=== PATIENT | male | born 1935 | race Caucasian/White ===

== ENCOUNTER 2022-12-31 13:08 | Outpatient (OUT) | payer OTHER, SELFPAY ==
[2022-12-31 13:42] LABS: Basophils Absolute Auto 0.1 10^3/uL (0.0-0.1); Basophils Percent Auto 1.6 % (0.2-2.0); Eosinophils Absolute Auto 0.4 10^3/uL (0.0-0.7); Hemoglobin 14.6 g/dL (14.0-18.0); Immature Granulocytes Abs Auto 0.02 10^3/uL (0.00-0.03); Immature Granulocytes Pct Auto 0.4 % (0.0-0.5); Lymphocytes Absolute Auto 1.2 10^3/uL (1.2-3.8); Lymphocytes Percent Auto 21.9 % (20.5-60.0); Mean Corpuscular HGB Conc 32.4 g/dL (29.9-35.2); Mean Corpuscular Hemoglobin 31.1 pg (25.9-34.0); Mean Corpuscular Volume 95.7 fL (80.0-94.0); Mean Platelet Volume 9.7 fL (9.5-13.5); Monocytes Absolute Auto 0.6 10^3/uL (0.3-0.8); Monocytes Percent Auto 10.9 % (1.7-12.0); Neutrophils Absolute Auto 3.3 10^3/uL (1.4-6.5); Neutrophils Percent Auto 58.2 % (43.0-75.0); Platelet Count 265 10^3/uL (150-450); Red Cell Distribution Width 14.5 % (11.0-15.0); White Blood Count 5.6 10^3/uL (4.0-11.0)
[2022-12-31 14:39] LABS: Alanine Aminotransferase 30 U/L (16-63); Albumin Level 3.5 g/dL (3.4-5.0); Alkaline Phosphatase 124 U/L (46-116); Anion Gap 11.9; Aspartate Amino Transferase 14 U/L (15-37); BUN Creatinine Ratio 24.3; Bilirubin Total 0.2 mg/dL (0.2-1.0); Calcium 8.6 mg/dL (8.5-10.1); Carbon Dioxide 27.6 mmol/L (21.0-32.0); Chloride 106 mmol/L (98-107); Estimated GFR (African America >60 (>=60); Estimated GFR (Non-African Ame >60 (>=60); Globulin 3.6 g/dL; Glucose 83 mg/dL (74-106); Potassium 4.5 mmol/L (3.5-5.1); Sodium 141 mmol/L (136-145); Total Protein 7.1 g/dL (6.4-8.2)
== END 2022-12-31 13:09 ==
LOC: LAB 13:14
PROVIDERS: PCP Internal Medicine; Visit Provider Internal Medicine
DX: I10 Essential (primary) hypertension (principal)
CPT/HCPCS: 36415; 80053; 85025

== ENCOUNTER 2023-03-02 20:15 | Emergency (ER) | payer OTHER, SELFPAY ==
[2023-03-02] VITALS (24 sets, daily range): BP systolic 118–147; BP diastolic 70–82; PULSE 75–87; RESP 12–26; TEMP 36.6; O2SAT 93–98; BMI 25.9
--- NOTE | 2023-03-02 20:32 | ED_ITS ---
HPI - SOB/Dyspnea General Chief Complaint: Shortness of Breath/Dyspnea Stated Complaint: GENERAL WEAKNESS Time Seen by Provider: 03/02/23 20:32 Source: patient Mode of arrival: walk-in Limitations: no limitations History of Present Illness HPI Narrative: He presents emergency department complaining of a cough. Patient states he Has been taking Mucinex for the last 5 days for chest congestion. He has a cough that is nonproductive. He is not bringing anything up however he feels that his lungs are congested. He denies any fever. He states he had intermittent wheezing but does not have any wheezing today. He states is making him feel short of breath. He has a history of asthma and hayfever. He takes Nasonex, and Claritin- D around the ear. His affect the Mucinex and does not feel like this is working. He's had pneumonia in the past and this feels like when he had pneumonia. The patient is not currently taking any steroids. He has not tried any treatments for this at home. Patient sees Dr. Méndez. Patient states he is vaccinated for pneumonia. He denies any lower extremity edema, or cramping. He denies any nausea, vomiting, diarrhea, constipation, abdominal pain. Related Data Home Medications Medication Instructions Recorded Confirmed aspirin 81 mg tablet,delayed 81 mg PO DAILY 03/02/23 03/02/23 release (Adult Aspirin Regimen) Previous Rx's Medication Instructions Recorded albuterol sulfate 90 mcg/actuation 2 inh inhalation Q4H PRN shortness 03/02/23 aerosol inhaler of breath or wheezing #8.5 grams methylprednisolone 4 mg tablets in 4 mg PO DAILY #21 ea 03/02/23 a dose pack (Medrol (Reji)) Allergies Allergy/AdvReac Type Severity Reaction Status Date / Time Sulfa (Sulfonamide Allergy Mild Verified 03/02/23 20:30 Antibiotics) eggs Allergy Mild Uncoded 03/02/23 20:30 Review of Systems ROS Status of ROS 10 or more systems reviewed and unremarkable except as noted in history and below Exam Narrative Exam Narrative: Nurses notes and vital signs reviewed and patient is not hypoxic. General: elderly,Nontoxic, Well-appearing and in no apparent distress. Skin: Warm, dry, no pallor noted. No Rash Head: Normocephalic, atraumatic. Neck: Supple, non-tender. Eye: Pupils are equal, round and EOMI. No scleral icterus. Ears, Nose, Mouth, and Throat: TM clear, no posterior oropharynx erythema or nasal mucosal hypertrophy, uvula is mid-line Oral mucosa is moist Cardiovascular: Regular Rate and Rhythm without murmur, gallop or rub. Respiratory: No accessory muscle use or respiratory distress. Lungs Bilateral diffuse coarse rhonchi worse anteriorly. Chest Wall: no tenderness Back: No midline thoracic or lumbar vertebral tenderness. No CVA tenderness Musculoskeletal: normal ROM, no calf or popliteal tenderness, no lower extremity edema/swelling GI: Abdomen is soft, non-distended. Normal bowel sounds. No masses appreciated. No tenderness to palpation. No rebound, guarding, or rigidity noted. Neurological: A&O x4. No cranial nerve dysfunction observed. No truncal ataxia. Moves all extremities. Sensation intact. Psychiatric: Cooperative and interactive. Normal mood and affect. Constitutional Vital Signs, click to edit/add: Last Vital Signs Temp 97.9 F 03/02/23 20:25 Pulse 87 03/02/23 23:20 Resp 19 03/02/23 23:20 BP 118/72 03/02/23 23:00 Pulse Ox 95 03/02/23 22:48 O2 Del Method Room Air 03/02/23 20:25 Course Vital Signs Vital signs: Vital Signs Temperature 97.9 F 03/02/23 20:25 Pulse Rate 83 03/02/23 20:25 Respiratory Rate 26 H 03/02/23 20:25 Blood Pressure 147/82 H 03/02/23 20:25 Pulse Oximetry 93 L 03/02/23 20:25 Oxygen Delivery Method Room Air 03/02/23 20:25 Temperature 97.9 F 03/02/23 20:25 Pulse Rate 87 03/02/23 23:20 Respiratory Rate 19 03/02/23 23:20 Blood Pressure 118/72 03/02/23 23:00 Pulse Oximetry 95 03/02/23 22:48 Oxygen Delivery Method Room Air 03/02/23 20:25 MDM - SOB/Dyspnea MDM Narrative Medical decision making narrative: Patient will be given one dose of nebulized albuterol. Lab studies, chest x-ray were ordered. Patient was given Rocephin IV. Patient felt better after nebulized treatments. All results discussed with patient. Patient feeling better. Lungs are clearing up. She was treated for bronchitis And started on a Medrol Dosepak and Albuterol inhaler. Patient will follow-up with Dr. Méndez. At this time the patient is without objective evidence of an acute process requiring hospitalization or inpatient management. The patient has remained hemo dynamically stable. No additional indication for emergent studies at this time. I answered all questions. Discussed discharge instructions including standard anticipatory guidance and what should prompt a return to the emergency department, including if they get worse are not getting better or develops any new or concerning symptoms. I've given them specific time frame in which to follow-up, and who to follow-up with. The patient demonstrates understanding. Patient is nontoxic and stable for discharge with outpatient follow-up. This note was created with the assistance of a speech recognition program. Although the intention is to generate documents that actually reflects the content of the visit, no guarantees can be provided that every mistake has been identified and corrected by editing. Differential Diagnosis Differential diagnosis: Likely acute exacerbation of chronic obstructive airways disease, congestive heart failure, community acquired pneumonia and asthma with exacerbation Lab Data Attestation: I reviewed the patient's lab results. Labs: Lab Results 03/02/23 03/02/23 Range/Units 20:30 20:39 WBC 11.1 H (4.0-11.0) 10^3/uL RBC 4.50 L (4.70-6.10) 10^6/uL Hgb 14.0 (14.0-18.0) g/dL Hct 42.4 (42.0-54.0) % MCV 94.2 H (80.0-94.0) fL MCH 31.1 (25.9-34.0) pg MCHC 33.0 (29.9-35.2) g/dL RDW 13.3 (11.0-15.0) % Plt Count 308 (150-450) 10^3/uL MPV 9.9 (9.5-13.5) fL Neut % (Auto) 79.5 H (43.0-75.0) % Lymph % (Auto) 8.4 L (20.5-60.0) % [place] % (Auto) 9.4 (1.7-12.0) % Eos % (Auto) 1.3 (0.9-7.0) % Baso % (Auto) 0.8 (0.2-2.0) % Neut # (Auto) 8.8 H (1.4-6.5) 10^3/uL Lymph # (Auto) 0.9 L (1.2-3.8) 10^3/uL [place] # (Auto) 1.1 H (0.3-0.8) 10^3/uL Eos # (Auto) 0.2 (0.0-0.7) 10^3/uL Baso # (Auto) 0.1 (0.0-0.1) 10^3/uL Abs Immat Gran (auto) 0.07 H (0.00-0.03) 10^3/uL Imm/Tot Granulo (auto) 0.6 H (0.0-0.5) % Sodium 137 (136-145) mmol/L Potassium 3.8 (3.5-5.1) mmol/L Chloride 102 (98-107) mmol/L Carbon Dioxide 25.6 (21.0-32.0) mmol/L Anion Gap 13.2 BUN 20.0 H (7.0-18.0) mg/dL Creatinine 1.61 H (0.70-1.30) mg/dL Est GFR ( Amer) 50 L (>=60) Est GFR (Non-Af Amer) 41 L (>=60) BUN/Creatinine Ratio 12.4 Glucose 117 H (74-106) mg/dL Calcium 8.5 (8.5-10.1) mg/dL Total Bilirubin 0.6 (0.2-1.0) mg/dL AST 14 L (15-37) U/L ALT 33 (16-63) U/L Alkaline Phosphatase 120 H (46-116) U/L Troponin I High Sens 11.8 (4.0-76.1) pg/mL NT-Pro-B Natriuret Pep 210.0 (<=1800.0) pg/mL Total Protein 7.3 (6.4-8.2) g/dL Albumin 3.1 L (3.4-5.0) g/dL Globulin 4.2 g/dL Albumin/Globulin Ratio 0.7 Adenovirus (PCR) Not detected (NOT DETECTE) C. pneumoniae DNA (PCR) Not detected (NOT DETECTE) Coronavirus Type OC43 Not detected (NOT DETECTE) Coronavirus Type HKU1 Not detected (NOT DETECTE) Coronavirus Type 229E Not detected (NOT DETECTE) Coronavirus Type NL63 Not detected (NOT DETECTE) Human Metapneumovir PCR Not detected (NOT DETECTE) M. pneumoniae (PCR) Not detected (NOT DETECTE) Parainfluenza PCR Not detected (NOT DETECTE) Parainfluenza 2 (PCR) Not detected (NOT DETECTE) Parainfluenza 3 (PCR) Not detected (NOT DETECTE) Parainfluenza 4 (PCR) Not detected (NOT DETECTE) RSV (RT-PCR) Not detected (NOT DETECTE) Entero/Rhino (PCR) Not detected (NOT DETECTE) SARS-CoV-2 (PCR) Not detected (NOT DETECTE) Bordetella pertussis (PCR) Not detected (NOT DETECTE) B parapertussis DNA PCR Not detected (NOT DETECTE) Influenza Type A (PCR) Not detected (NOT DETECTE) Influenza Type B (PCR) Not detected (NOT DETECTE) Discharge Plan Discharge Chief Complaint: Shortness of Breath/Dyspnea Clinical Impression: Asthma with acute exacerbation, Bronchitis Patient Disposition: Home, Self-Care Time of Disposition Decision: 23:15 Condition: Good Mode of Transportation: Private Vehicle Prescriptions / Home Meds: New methylprednisolone [Medrol (Reji)] 4 mg tablets,dose pack 4 mg PO DAILY Qty: 21 0RF albuterol sulfate 90 mcg/actuation HFA aerosol inhaler 2 inh inhalation Q4H PRN (Reason: shortness of breath or wheezing) Qty: 8.5 0RF No Action aspirin [Adult Aspirin Regimen] 81 mg tablet,delayed release (DR/EC) 81 mg PO DAILY Instructions: Asthma (ED), Acute Bronchitis (ED) Stand Alone Forms: Portal Instructions Referrals: Shaikh Franklin MD [Primary Care Provider] - 1 week Discharge Date/Time: 03/02/23 23:23
--- NOTE | 2023-03-02 20:33 | ECG_ITS ---
The [facility] Test Date: 2023-03-02 Pat Name: Rolando Rothman Department: Room: - Gender: Male Reading Professor: : 1935 Requested By: SHAIKH MIHAELA Order Number: [id number] Reading MD: ELIZABETH GAUTAM Measurements Intervals [place] Rate: 81 P: 69 RI: 222 QRS: 69 QRSD: 84 T: 60 QT: 350 QTc: 388 Interpretive Statements 1100 Sinus rhythm 2231 First degree AV block 0102 ARTIFACT PRESENT 9150 abnormal ECG No previous ECG available for comparison Electronically Signed On 03-03-2023 6:56:37 EDT by ELIZABETH GAUTAM
--- NOTE | 2023-03-02 20:33 | XR_ITS ---
The [place] [id number] Patient Name: DERRICK MONAE MRN: [id number] date: 1935 Sex: M Assigned Patient Location: ED.MAIN Current Patient Location: ER Accession/Order Number: [id number] Exam Date: 03/02/2023 20:45 Report Date: 03/02/2023 22:18 At the request of: DUNG URIAS Procedure: XR chest 1V CLINICAL HISTORY: dyspnea. EXAMINATION: Portable AP upright chest: 03/02/2023 at 2021 hours. COMPARISON: PA and lateral chest: 12/14/2015. FINDINGS: The patient is somewhat rotated, lordotic. The visualized osseus structures appear intact. The heart size seems normal. The aorta is slightly tortuous, atherosclerotic. There are no discrete infiltrates, pleural effusions, pulmonary edema or pneumothorax. XR/XR chest 1V IMPRESSION: No acute cardiopulmonary disease. Electronically authenticated by: JOE KING Date: 03/02/2023 22:18
[2023-03-02 20:55] LABS: Adenovirus NOT DETECTED (NOT DETECTE); Bordetella parapertussis NOT DETECTED (NOT DETECTE); Coronavirus 229E NOT DETECTED (NOT DETECTE); Coronavirus HKU1 NOT DETECTED (NOT DETECTE); Coronavirus NL63 NOT DETECTED (NOT DETECTE); Coronavirus OC43 NOT DETECTED (NOT DETECTE); Human Metapneumovirus NOT DETECTED (NOT DETECTE); Human Rhinovirus/Enterovirus NOT DETECTED (NOT DETECTE); Influenza A NOT DETECTED (NOT DETECTE); Influenza B NOT DETECTED (NOT DETECTE); Mycoplasma pneumoniae NOT DETECTED (NOT DETECTE); Parainfluenza Virus 1 NOT DETECTED (NOT DETECTE); Parainfluenza Virus 2 NOT DETECTED (NOT DETECTE); Parainfluenza Virus 3 NOT DETECTED (NOT DETECTE); Parainfluenza Virus 4 NOT DETECTED (NOT DETECTE); Respiratory Syncytial Virus NOT DETECTED (NOT DETECTE); SARS-CoV-2 NOT DETECTED (NOT DETECTE)
[2023-03-02 21:00] LABS: Basophils Absolute Auto 0.1 10^3/uL (0.0-0.1); Basophils Percent Auto 0.8 % (0.2-2.0); Eosinophils Absolute Auto 0.2 10^3/uL (0.0-0.7); Eosinophils Percent Auto 1.3 % (0.9-7.0); Hematocrit 42.4 % (42.0-54.0); Immature Granulocytes Abs Auto 0.07 10^3/uL (0.00-0.03); Immature Granulocytes Pct Auto 0.6 % (0.0-0.5); Lymphocytes Absolute Auto 0.9 10^3/uL (1.2-3.8); Lymphocytes Percent Auto 8.4 % (20.5-60.0); Mean Corpuscular Hemoglobin 31.1 pg (25.9-34.0); Mean Corpuscular Volume 94.2 fL (80.0-94.0); Mean Platelet Volume 9.9 fL (9.5-13.5); Monocytes Absolute Auto 1.1 10^3/uL (0.3-0.8); Monocytes Percent Auto 9.4 % (1.7-12.0); Neutrophils Absolute Auto 8.8 10^3/uL (1.4-6.5); Neutrophils Percent Auto 79.5 % (43.0-75.0); Platelet Count 308 10^3/uL (150-450); Red Cell Distribution Width 13.3 % (11.0-15.0); White Blood Count 11.1 10^3/uL (4.0-11.0)
[2023-03-02 21:15] LABS: Alanine Aminotransferase 33 U/L (16-63); Albumin Globulin Ratio 0.7; Albumin Level 3.1 g/dL (3.4-5.0); Alkaline Phosphatase 120 U/L (46-116); Anion Gap 13.2; Aspartate Amino Transferase 14 U/L (15-37); BUN Creatinine Ratio 12.4; Bilirubin Total 0.6 mg/dL (0.2-1.0); Calcium 8.5 mg/dL (8.5-10.1); Carbon Dioxide 25.6 mmol/L (21.0-32.0); Chloride 102 mmol/L (98-107); Estimated GFR (African America 50 (>=60); Estimated GFR (Non-African Ame 41 (>=60); Globulin 4.2 g/dL; Glucose 117 mg/dL (74-106); Potassium 3.8 mmol/L (3.5-5.1); Sodium 137 mmol/L (136-145); Total Protein 7.3 g/dL (6.4-8.2)
[2023-03-02] MEDS: ALBUTEROL SULFATE 2.5 MG/3 ML VIAL NEB IH (21:21)
[2023-03-02 21:22] LABS: Troponin I High Sensitivity 11.8 pg/mL (4.0-76.1)
[2023-03-02] MEDS: CEFTRIAXONE 1,000 MG in 0.9 % SODIUM CHLORIDE 50 ML 100 MG IV (22:32)
[2023-03-02] MEDS: METHYLPREDNISOLONE SOD SUCC PF 125 MG/2 ML VIAL IVP (22:32)
[2023-03-02] MEDS: IPRATROPIUM/ALBUTEROL SULFATE 3 ML AMPUL.NEB IH (22:48)
== END 2023-03-02 23:23 | disposition home or self-care (01) ==
PROVIDERS: Emergency Provider Emergency Medicine; PCP Internal Medicine
DX: J45.901 Unspecified asthma with (acute) exacerbation (principal); Z79.82 Long term (current) use of aspirin; Z20.822 Contact with and (suspected) exposure to COVID-19; R06.02 Shortness of breath
CPT/HCPCS: 0202U; 36415; 71045; 80053; 83880; 84484; 85025; 87040; 93005; 94640; 96365; 96375; 99285; J2930

== ENCOUNTER 2023-03-25 12:32 | Outpatient (OUT) | payer OTHER, SELFPAY ==
--- NOTE | 2023-03-24 10:15 | RT_ITS ---
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 Findings were not considered accurate and reproducible due to coughing paroxysms. Both pre- and post-bronchodilator values utilized for spirometry. No prior studies available for comparison. Spirometry (based on pre-bronchodilator values): -FEV1/FVC: Reduced @ 57% -FEV1: Severely reduced @ 41% -FVC: Reduced @ 49% -There is a positive bronchodilator response in FEV1 and FVC. Lung volumes by plethysmography: -RV: Increased @ 180% -TLC: Normal @ 105% Diffusion capacity: -DLCO: Moderate reduction @ 59% when corrected for Hb 14g/dL Flow-volume loop: -Abnormal spike in the expiratory limb suggestive of a glottic maneuver (e.g. cough) Flow-pressure loop: ???Emphysematous pattern Impressions: -Though testing technically did not meet ATS standards, spirometry shows severe obstruction with a bronchodilator response with an elevated RV suggesting air trapping, and a moderately reduced DLCO. 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 Clinical correlation required. Electronically Signed On 03-27-2023 13:35:22 EDT by Larry Méndez
[2023-03-24 10:17] VITALS: PULSE 84; O2SAT 94
[2023-03-24] MEDS: ALBUTEROL SULFATE 2.5 MG/3 ML VIAL NEB IH (10:17)
== END 2023-03-25 12:33 | disposition home or self-care (01) ==
LOC: CARD 12:33
PROVIDERS: PCP Internal Medicine; Visit Provider Internal Medicine
DX: J45.40 Moderate persistent asthma, uncomplicated (principal)
CPT/HCPCS: 94060; 94726; 94729

== ENCOUNTER 2023-04-23 07:57 | Outpatient (OUT) | payer OTHER, SELFPAY ==
--- NOTE | 2023-04-23 08:09 | CT_ITS ---
[address] [address] Patient Name: DERRICK MONAE MRN: [id number] date: 1935 Sex: M Assigned Patient Location: LAB Current Patient Location: LAB Accession/Order Number: [id number] Exam Date: 04/23/2023 08:35 Report Date: 04/23/2023 09:38 At the request of: ZULEIKA HELMS Procedure: CT angio chest EXAMINATION: CT angio chest HISTORY: Acute Respiratory Failure ; cough COMPARISON: No relevant comparison available. TECHNIQUE: Multi-planar CT images were created with IV contrast. Axial, Coronal, and Sagittal images. Dose reduction techniques were achieved by using automated exposure control and/or adjustment of mA and/or kV according to patient size and/or use of iterative reconstruction technique. 3-D reconstruction was performed on a separate workstation. FINDINGS: VASCULATURE: No pulmonary embolism or abnormal opacity. LUNGS: Mild wall thickening of the trachea and central bronchi. No peripheral infiltrates. PLEURA: No mass, effusion, or pneumothorax. BERNADETTE: Calcified right hilar lymph nodes compatible with chronic granulomatous disease. MEDIASTINUM: No mass or adenopathy. CARDIAC: No enlargement, pericardial effusion, or pericardial thickening. AORTA: No aneurysm or dissection. CHEST WALL: No mass or axillary adenopathy. BONES: No bone lesion or fracture. LIMITED ABDOMEN: No suspicious findings. Limited images of the upper abdomen. OTHER: Negative. CT/CT angio chest IMPRESSION: 1. No pulmonary emboli. 2. Mild wall thickening of the trachea and central bronchi; tracheitis and bronchiolitis? 3. No peripheral infiltrates. Electronically authenticated by: RIVER MARSHALL Date: 04/23/2023 09:38
[2023-04-23 08:15] LABS: Estimated GFR (African America >60 (>=60); Estimated GFR (Non-African Ame >60 (>=60)
== END 2023-04-23 07:58 | disposition home or self-care (01) ==
LOC: LAB 07:57
PROVIDERS: PCP Internal Medicine; Visit Provider Internal Medicine
DX: J96.01 Acute respiratory failure with hypoxia (principal)
CPT/HCPCS: 36415; 71275; 82565; Q9967

== ENCOUNTER 2023-06-09 10:51 | Outpatient (OUT) | payer OTHER, SELFPAY ==
[2023-06-09 11:26] LABS: Basophils Absolute Auto 0.1 10^3/uL (0.0-0.1); Eosinophils Absolute Auto 0.3 10^3/uL (0.0-0.7); Eosinophils Percent Auto 4.9 % (0.9-7.0); Hematocrit 44.7 % (42.0-54.0); Hemoglobin 14.4 g/dL (14.0-18.0); Immature Granulocytes Abs Auto 0.02 10^3/uL (0.00-0.03); Immature Granulocytes Pct Auto 0.3 % (0.0-0.5); Lymphocytes Absolute Auto 0.7 10^3/uL (1.2-3.8); Lymphocytes Percent Auto 11.8 % (20.5-60.0); Mean Corpuscular HGB Conc 32.2 g/dL (29.9-35.2); Mean Corpuscular Hemoglobin 30.7 pg (25.9-34.0); Mean Corpuscular Volume 95.3 fL (80.0-94.0); Mean Platelet Volume 9.7 fL (9.5-13.5); Monocytes Absolute Auto 0.6 10^3/uL (0.3-0.8); Monocytes Percent Auto 10.9 % (1.7-12.0); Neutrophils Absolute Auto 4.1 10^3/uL (1.4-6.5); Neutrophils Percent Auto 70.1 % (43.0-75.0); Platelet Count 292 10^3/uL (150-450); Red Blood Count 4.69 10^6/uL (4.70-6.10); White Blood Count 5.9 10^3/uL (4.0-11.0)
[2023-06-10 19:07] LABS: Anti-MPO Antibodies <0.2 units (0.0-0.9); Anti-PR3 Antibodies <0.2 units (0.0-0.9); Cytoplasmic (C-ANCA) <1:20 titer (Neg:<1:20); Perinuclear (P-ANCA) <1:20 titer (Neg:<1:20)
[2023-06-12 03:08] LABS: Immunoglobulin E, Total 46 IU/mL (6-495)
== END 2023-06-09 10:52 | disposition home or self-care (01) ==
LOC: LAB 10:52
PROVIDERS: PCP Internal Medicine; Visit Provider Internal Medicine
DX: J45.40 Moderate persistent asthma, uncomplicated (principal)
CPT/HCPCS: 36415; 82785; 83516; 85025; 86037; 86615

== ENCOUNTER 2023-06-14 07:52 | Outpatient (REF) | payer OTHER, SELFPAY | END 2023-06-15 05:52 | disposition home or self-care (01) | LOC: LAB 07:52 | PROVIDERS: PCP Internal Medicine; Visit Provider Internal Medicine | DX: A37.00 Whooping cough due to Bordetella pertussis without pneumonia (principal) | CPT/HCPCS: 87070; 87205 ==

== ENCOUNTER 2024-01-02 11:58 | Outpatient (OUT) | payer OTHER, SELFPAY ==
--- OUTSIDE RECORDS SUMMARY | 2024-01-02 12:22 | XMS_ITS | CCD ---
Author Organization [facility] Care Team Providers Care Servicenow Administrator Developer Name Role Phone SHAIKH CHAIREZ Consulting Unavailable SHAIKH CHAIREZ Attending Unavailable SHAIKH CHAIREZ Admitting Unavailable SHAIKH CHAIREZ Primary Care Unavailable SHAIKH CHAIREZ Attending Unavailable SHAIKH CHAIREZ Attending Unavailable Results Test Name Value Interpretation Reference Range Facil ity CBC AUTO DIFFon 10-01-2021 BASO # 0.1 103/ul Normal 0.0-0.1 [facility] Comment on above: Performed By: #### C BC #### [facility] [address] [place] [address] Dr. Mazin Davila Basophils/100 WBC (Bld) 1.3 % Normal 0.2-2.0 [facility] Comment on above: Performed By: #### C BC #### [facility] [address] [place] [address] Dr. Mazin Davila EO # 0.3 103/ul Normal 0.0-0.7 [facility] Comment on above: Performed By: #### C BC #### [facility] [address] [place] [address] Dr. Mazin Davila Eosinophils/100 WBC (Bld) 4.3 % Normal 0.9-7.0 [facility] Comment on above: Performed By: #### C BC #### [facility] [address] [place] [address] Dr. Mazin Davila Erythrocyte distribution width (RBC) [Ratio] 13.6 % Normal 11.0-15.0 [facility] Comment on above: Performed By: #### C BC #### [facility] [address] [place] [address] Dr. Mazin Davila Hematocrit (Bld) [Volume fraction] 45.4 % Normal 42.0-54.0 [facility] Comment on above: Performed By: #### C BC #### [facility] [address] [place] [address] Dr. Mazin Davila Hemoglobin (Bld) [Mass/Vol] 14.4 g/dL Normal 14.0-18.0 [facility] Comment on above: Performed By: #### C BC #### [facility] [address] [place] [address] Dr. Mazin Davila IG # 0.03 10e3/ul Normal 0.00-0.03 [facility] Comment on above: Performed By: #### C BC #### [facility] [address] [place] [address] Dr. Mazin Davila IG % 0.4 % Normal 0.0-0.5 [facility] Comment on above: Performed By: #### C BC #### [facility] [address] [place] [address] Dr. Mazin Davila LYMPH # 1.2 103/ul Normal 1.2-3.8 [facility] Comment on above: Performed By: #### C BC #### [facility] [address] [place] [address] Dr. Mazin Davila Lymphocytes/100 WBC (Bld) 15.1 % Critically low 20.5-60.0 [facility] Comment on above: Performed By: #### C BC #### [facility] [address] [place] [address] Dr. Mazin Davila MANUAL DIFF REQ NO Normal [facility] Comment on above: Performed By: #### C BC #### [facility] [address] [place] [address] Dr. Mazin Davila MCH (RBC) [Entitic mass] 30.4 pg Normal 25.9-34.0 [facility] Comment on above: Performed By: #### C BC #### [facility] [address] [place] [address] Dr. Mazin Davila MCHC (RBC) [Mass/Vol] 31.7 g/dL Normal 29.9-35.2 [facility] Comment on above: Performed By: #### C BC #### [facility] [address] [place] [address] Dr. Mazin Davila MCV (RBC) [Entitic vol] 96.0 fL Critically high 80.0-94.0 [facility] Comment on above: Performed By: #### C BC #### [facility] [address] [place] [address] Dr. Mazin Davila MONO # 0.6 103/ul Normal 0.3-0.8 [facility] Comment on above: Performed By: #### C BC #### [facility] [address] [place] [address] Dr. Mazin Davila Monocytes/100 WBC (Bld) 7.6 % Normal 1.7-12.0 [facility] Comment on above: Performed By: #### C BC #### [facility] [address] [place] [address] Dr. Mazin Davila NEUT # 5.5 103/ul Normal 1.4-6.5 [facility] Comment on above: Performed By: #### C BC #### [facility] [address] [place] [address] Dr. Mazin Davila Neutrophils/100 WBC (Bld) 71.3 % Normal 43.0-75.0 [facility] Comment on above: Performed By: #### C BC #### [facility] [address] [place] [address] Dr. Mazin Davila Platelet mean volume (Bld) [Entitic vol] 10.2 fL Normal 9.5-13.5 [facility] Comment on above: Performed By: #### C BC #### [facility] [address] [place] [address] Dr. Mazin Davila PLT 314 103/ul Normal 150-450 [facility] Comment on above: Performed By: #### C BC #### [facility] [address] [place] [address] Dr. Mazin Davila RBC 4.73 106/ul Normal 4.70-6.10 [facility] Comment on above: Performed By: #### C BC #### [facility] [address] [place] [address] [address] Mazin Davila WBC 7.7 103/ul Normal 4.0-11.0 [facility] Comment on above: Performed By: #### C BC #### [facility] [address] [place] [address] [address] Mazin Davila PROF CHEM 8 (BAS METB)on Anion gap [Moles/Vol] 11.7 mmol/L Normal [facility] Comment on above: Performed By: #### B MP #### [facility] [address] [place] [address] Dr. Mazin Davila Calcium [Mass/Vol] 8.6 mg/dL Normal 8.5-10.1 [facility] Comment on above: Performed By: #### B MP #### [facility] [address] [place] [address] Dr. Mazin Davila Chloride [Moles/Vol] 107 mmol/L Normal 98-107 [facility] Comment on above: Performed By: #### B MP #### [facility] [address] [place] [address] [address] Mazin Davila CO2 [Moles/Vol] 26.8 mmol/L Normal 22.0-30.0 [facility] Comment on above: Performed By: #### B MP #### [facility] [address] [place] [address] [address] Mazin Davila Creatinine [Mass/Vol] 1.13 mg/dL Normal 0.66-1.25 [facility] Comment on above: Performed By: #### B MP #### [facility] [address] [place] [address] Dr. Mazin Davila EGFR-AF ANGOLAN >60 Normal >=60 [facility] Comment on above: Performed By: #### B MP #### [facility] [address] [place] [address] Dr. Mazin Davila EGFR-NON AF ANGOLAN >60 Normal >=60 [facility] Comment on above: Performed By: #### B MP #### [facility] [address] [place], [place] [address] Dr. Mazin Davila Glucose [Mass/Vol] 92 mg/dL Normal 74-106 [facility] Comment on above: Performed By: #### B MP #### [facility] [address] [place], [place] [address] Dr. Mazin Davila Potassium [Moles/Vol] 4.5 mmol/L Normal 3.4-5.0 [facility] Comment on above: Performed By: #### B MP #### [facility] [address] [place], [place] [address] Dr. Mazin Davila Sodium [Moles/Vol] 141 mmol/L Normal 137-145 [facility] Comment on above: Performed By: #### B MP #### [facility] [address] [place] [address] [address] Mazin Davila Urea nitrogen [Mass/Vol] 26.0 mg/dL Critically high 7.0-18.0 [facility] Comment on above: Performed By: #### B MP #### [facility] [address] [place] [address] [address] Mazin Davila Urea nitrogen/Creatinine [Mass ratio] 23.0 mg/mg Normal [facility] Comment on above: Performed By: #### B MP #### [facility] [address] [place] [address] [address] Mazin Davila Encounters Encounter Date Encounter Type Care Provider Facility Start: 12-30-2023 End: 12-30-2023 ambulatory JONAS FAWWAD Not Available Start: 06-30-2023 End: 06-30-2023 ambulatory JONAS FAWWAD Not Available Start: 10-01-2021 End: 10-02-2021 ambulatory JONAS FAWWAD Facility: Payers Date Payer Category Payer Medicare [id number] 1957 Medicare [id number] 1935 Unknown [id number] 1935 Unknown [id number] 1935 Unknown [id number] Unknown [id number] Summary Purpose Family History No Family History Records FoundNo Family History Records Found Advance Directives No Advanced Directives Records FoundNo Advanced Directives Records Found Additional Source Comments (unrecognized sect ion and content) No Status Records FoundNo Status Records Found INFORMATION SOURCE (unrecogn ized section and content) DATE CREATED AUTHOR 10/02/2021 [facility] DATE CREATED AUTHOR AUTHOR'S ORGANIZ ATION 12/31/2023 [facility] FOR RECORDS PERTAINING TO PATIENTS WHO ARE OR HAVE BEEN ENROLLED IN A CHEMICAL DEPENDENCY/SUBSTANCEABUSE PROGRAM, SOME INFORMATION MAY BE OMITTED. This clinical summary was aggregated from multiple sources. Caution should be exercised in using it in the provision of clinical care. This summary normalizes information from multiple sources, and as a consequence, information in this document may materially change the coding, format and clinical context of patient data. In addition, data may be omitted in some cases. CLINICAL DECISIONS SHOULD BE BASED ON THE PRIMARY CLINICAL RECORDS. [facility] [employer] provides no warranty or guarantee of the accuracy or completeness of information in this document.
[2024-01-02 12:41] LABS: Basophils Absolute Auto 0.1 10^3/uL (0.0-0.1); Basophils Percent Auto 1.9 % (0.2-2.0); Eosinophils Absolute Auto 0.6 10^3/uL (0.0-0.7); Eosinophils Percent Auto 9.7 % (0.9-7.0); Hematocrit 45.3 % (42.0-54.0); Hemoglobin 14.9 g/dL (14.0-18.0); Immature Granulocytes Abs Auto 0.02 10^3/uL (0.00-0.03); Immature Granulocytes Pct Auto 0.3 % (0.0-0.5); Lymphocytes Absolute Auto 1.2 10^3/uL (1.2-3.8); Lymphocytes Percent Auto 19.9 % (20.5-60.0); Mean Corpuscular HGB Conc 32.9 g/dL (29.9-35.2); Mean Corpuscular Hemoglobin 30.8 pg (25.9-34.0); Mean Corpuscular Volume 93.6 fL (80.0-94.0); Monocytes Absolute Auto 0.5 10^3/uL (0.3-0.8); Monocytes Percent Auto 8.3 % (1.7-12.0); Neutrophils Absolute Auto 3.5 10^3/uL (1.4-6.5); Neutrophils Percent Auto 59.9 % (43.0-75.0); Platelet Count 247 10^3/uL (150-450); Red Blood Count 4.84 10^6/uL (4.70-6.10); Red Cell Distribution Width 13.7 % (11.0-15.0); White Blood Count 5.9 10^3/uL (4.0-11.0)
[2024-01-02 14:29] LABS: Alanine Aminotransferase 22 U/L (16-63); Albumin Globulin Ratio 1.1; Albumin Level 3.5 g/dL (3.4-5.0); Alkaline Phosphatase 128 U/L (46-116); Anion Gap 9.8; Aspartate Amino Transferase 17 U/L (15-37); BUN Creatinine Ratio 20.7; Bilirubin Total 0.5 mg/dL (0.2-1.0); Calcium 8.7 mg/dL (8.5-10.1); Carbon Dioxide 29.3 mmol/L (21.0-32.0); Chloride 106 mmol/L (98-107); Estimated GFR (African America >60 (>=60); Estimated GFR (Non-African Ame >60 (>=60); Globulin 3.3 g/dL; Glucose 89 mg/dL (74-106); Potassium 4.1 mmol/L (3.5-5.1); Sodium 141 mmol/L (136-145); Total Protein 6.8 g/dL (6.4-8.2)
== END 2024-01-02 11:59 | disposition home or self-care (01) ==
LOC: LAB 12:00
PROVIDERS: PCP Internal Medicine; Visit Provider Internal Medicine
DX: I25.10 Atherosclerotic heart disease of native coronary artery without angina pectoris (principal)
CPT/HCPCS: 36415; 80053; 85025

== ENCOUNTER 2024-05-04 17:23 | Emergency (ER) | payer MEDICARE, SELFPAY ==
[2024-05-04 17:29] VITALS: BP 170/84; PULSE 95; TEMP 37.1; O2SAT 96; BMI 25.0
--- OUTSIDE RECORDS SUMMARY | 2024-05-04 17:29 | XMS_ITS | CCD ---
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 Role Phone SHAIKH CHAIREZ Consulting Unavailable SHAIKH CHAIREZ Attending Unavailable FASHAIK HUANGH Admitting Unavailable FASHAIK HUANGH Primary Care Unavailable SHAIKH CHAIREZ Attending Unavailable MIHAELA, Attending Unavailable Unavailable Primary Care Provider Unavailabl e PREET LALA Referring Unavailable PREET LALA Attending Unavailable PREET LALA Referring Unavailable PREET LALA Referring Unavailable PREET LALA Attending Unavailable Allergies Allergy Classification Reported Allergen(s) Allergy Type Date of Onset Reaction(s) Facility (4 sources) Sulfonamides (Antibiotic); Translations: [SULFA (SULFONAMIDE ANTIBIOTICS)] Propensity to adverse reactions 3 [facility] Work Phone: (4 sources) Pineapple; Translations: [PINEAPPLE] Propensity to adverse reactions to drug 1 Other: See Comments [facility] Work Phone: (1 source) OTHER; Translations: [OTHER] Propensity to adverse reactions (disorder) 3 [facility] Repository Medications Current Medications Medication Drug Class(es) Dates Sig (Normalized) Sig (Original) [id number] 200 actuat albuterol 0.09 mg/actuat metered dose inhaler (3 sources) beta2-Adrenergic Agonist Start: 05-07-2018 take 2 puff(s) by inhalation every four hours as needed albuterol HFA (PROVENTIL HFA, VENTOLIN HFA) 90 mcg/actuation inhaler Inhale 2 Puffs as instructed every 4 hours as needed. 05/07/2018 Active aspirin 500 mg oral tablet (3 sources) Platelet Aggregation Inhibitor, Nonsteroidal Anti-inflammatory Drug Start: 04-16-2011 take 2 tablets by mouth twice daily Aspirin (EXTRA STRENGTH GAIL) 500 mg ORAL Tab Take 1,000 mg by mouth twice daily. 0 04/16/2011 Active donepezil hydrochloride 10 mg oral tablet (3 sources) Start: 01-23-2024 End: 01-22-2025 take 1 tablet by mouth once daily at bedtime donepezil (ARICEPT) 10 mg tablet Take 1 tablet by mouth daily at bedtime. 90 tablet 3 01/23/2024 01/22/2025 Active esomeprazole 40 mg delayed release oral capsule (3 sources) Proton Pump Inhibitor Start: 04-16-2011 take 1 capsule by mouth once daily esomeprazole (NEXIUM) 40 mg ORAL capsule Take 1 capsule by mouth once daily. 0 04/16/2011 Active fluticasone propionate 0.05 mg/actuat metered dose nasal spray (3 sources) Corticosteroid fluticasone (FLONASE) 50 mcg/actuation nasal spray Use 1 [place] in the nose once daily. Active fluticasone / salmeterol (3 sources) Corticosteroid, beta2-Adrenergic Agonist Start: 04-16-2011 take 1 puff(s) by mouth twice daily fluticasone-salme terol (ADVAIR DISKUS) 250-50 mcg/dose INHALATION DsDv Inhale 1 Puff as instructed twice daily. rinse and gargle mouth with water after each use 0 04/16/2011 Active fluticasone furoate-vilanterol (BREO ELLIPTA) 50-25 mcg/dose inhaler (3 sources) fluticasone furoate-vilantero l (BREO ELLIPTA) 50-25 mcg/dose inhaler Inhale 1 Inhalation as instructed once daily. Active fluticasone furo ate-vilanterol (BREO ELLIPTA) 50-25 mcg/dose inhaler Inhale 1 Inhalation as instructed once daily. 0 Active 24 hr isosorbide mononitrate 30 mg extended release oral tablet (3 sources) Nitrate Vasodilator Start: 10-24-2015 take 0.5 tablet by mouth twice daily isosorbide mononitrate ER (IMDUR) 30 mg 24 hr tablet Take 0.5 tablets by mouth twice daily. 10/24/2015 Active 24 hr loratadine 10 mg / pseudoephedrine sulfate 240 mg extended release oral tablet (3 sources) alpha-Adrenergic Agonist take 1 tablet by mouth once daily loratadine-pseud oephedrine ER (CLARITIN-D 24) 10-240 mg Tb24 Take 1 tablet by mouth once daily. Active memantine hydrochloride 10 mg oral tablet (2 sources) C-luiawj-P-aspartate Receptor Antagonist Start: 04-30-2024 End: 04-30-2025 take 1 tablet by mouth twice daily memantine (NAMENDA) 10 mg tablet Indications: Mild late onset Alzheimer's dementia without behavioral disturbance, psychotic disturbance, mood disturbance, or anxiety (HCC) Take 1 tablet by mouth two times a day. 180 tablet 3 04/30/2024 04/30/2025 Active mometasone furoate 0.05 mg/actuat metered dose nasal spray (3 sources) Corticosteroid Start: 04-16-2011 take 2 spray(s) nasal route once daily mometasone (NASONEX) 50 mcg/Actuation NASAL nasal spray Use 2 Sprays in each nostril once daily. 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] Onset: 02-15-2024 01-23-2024 Chronic Esophageal disorders (3 sources) Gastroesophageal reflux disease; Translations: [Gastro-esophageal reflux disease without esophagitis] Onset: 04-16-2011 04-16-2011 Chronic Osteoarthritis (3 sources) Osteoarthritis of knee; Translations: [Osteoarthritis of knee, unspecified] Onset: 04-16-2011 04-16-2011 Chronic Unclassified (1 source) Established Patient Follow-Up Onset: 04-30-2024 Unclassified (1 source) Mild late onset Alzheimer's dementia without behavioral disturbance, psychotic disturbance, mood disturbance, or anxiety (HCC); Translations: [Mild late onset Alzheimer's dementia without behavioral disturbance, psychotic disturbance, mood disturbance, or anxiety (HCC)] Onset: 02-15-2024 Past or Other Problems Problem Classification Problem Date Documented Date Episodic/Chronic Other screening for suspected conditions (not mental disorders or infectious disease) (3 sources) Cardiovascular stress test abnormal; Translations: [Abnormal result of other cardiovascular function study] Onset: 04-16-2011 07-09-2021 Episodic Results Test Name Value Interpretation Reference Range Facility [facility] 04-30-2024 CN Office Visit (ISMAEL) DERRICK MONAE ([id number]) 1935 M Date Time Provider Department 04/30/24 11:30 AM PREET LALA During your visit today, we recorded the following information about you: Pulse Blood pressure Weight Height 66/minute 155/73 72.6 kg 1.676 m Edilberto Goodwin MA 04/30/2024 11:28 AM Signed Derrick Owen Lorna is a 88 year old year old man accompanied by: patient. Do you have any changes or new concerns you would like to address at the visit today? Pt in today to get a follow up of mri Vital Signs: BP 155/73 (BP Site: Right Arm, BP Position: Sitting, BP Cuff Size: Regular Adult) Pulse 66 Ht 167.6 cm (5' 6 ) Wt 72.6 kg (160 lb) BMI 25.82 kg/m? 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 He is accompanied by his and son. Last visit was 01/23/2024 where the plan was as follows: -Start donepezil 5 mg daily for one month followed by 10 mg daily after that -MRI brain -Labs: B12, TSH, B1 -RTC in 3 months after MRI and lab workup -Provided reading materials on disease and the expected disease course Interval update: B12 and TSH were WNL. MRI brain remarkable for hippocampi in the 1st percentile with generalized atrophy. Recently a couple nights ago he had a really hard time physically had a hard time getting up and was kind of out of it. says he cleared right up . He sat in a chair in the kitchen. He was really confused. No convulsing or shaking. Lasted about an hour all together. Has never had similar episodes in the past. Has continued to have cognitive decline since last visit. started giving it to him at night because he was getting sleepy. Denies any vivid dreams, diarrhea, cramping, nausea or dizziness. Background and History of Present Illness: Onset and Progression: Started several months ago. First time they noticed something was off was in September. He got really confused at a [employer]. He had no idea where they were. Another time at a graduation green party he thought they already went there. Has always been really good with directions. Has been having more problems now. About 1.5 months ago they drove to a location they had been several times and he did not know where they were. notes that they tell him something one day and the next day or even the same day he does not remember it at all. He is always with his when driving. There is concern that he would get lost. He has significant hearing problems. Feels like this has been gradually getting worse as well. 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 There was concerns with his job and they told him to stop driving about a year ago. It is unclear what the reasons were for. There were jobs that took longer than it should have. Now his has to set up his medications and even when she does this he often forgets to take them. Sometimes he uses his card at the bank and it says insufficient funds . took away his credit card because he was not paying back his card. She says he did not realize when you use a credit card you have to pay it back. This was about a month ago. He can't hear out of phone very well so does not use this much. writes everything down as far shopping otherwise he would not be able to keep track and shop for his needs. They were in his truck the other day and he could not figure out how to turn his air conditioner on. They had to get the owners eduard out to figure this out for him. 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 Mental Health: Patient denies any depression or anxiety but says she thinks he is depressed because he cannot do things like he used to. Sleep: He is sleeping too much, sometimes till 1pm. Have you ever been told, or suspected yourself, that you seem to ?act out your dreams? while asleep (for example, punching, flailing your arms in the air, making running movements, etc.)?? No 5. Activities of Daily Living [place] Index of Walsh in Activities of Daily Living (A.D.L.) Bathing: Bathes self completely or needs help in bathing only a single part of the body such as the back, genital area or disabled extremity. (1 POINT) Dressing: Get clothes from closets and drawers and puts on clothes and outer garments complete with fasteners. May have help tying shoes. (1 POINT) Toileting: Goes to toilet, gets on and off, arranges clothes, cleans genital area without help. (1 POINT) Transferring: Moves in and out of bed or chair unassisted. Mechanical transfer aids are acceptable. (1 POINT) Continence: Exercises complete self-control over urination and defecation. (1 POINT) Feed (more content not included)... Normal [facility] MR Brain WO contraston 02-14 * * *Final Report* * * DATE OF EXAM: Feb 15 2024 12:15PM [facility]015 - MRI BRAIN W QUANT WO IVCON / PROCEDURE REASON: multiple diagnoses * * * * Physician Interpretation * * * * EXAMINATION: MRI BRAIN W QUANT WO IVCON, MRI 3D POST PROCESSING Clinical history: As provided by the ordering clinician via order question entries: For anatomic quantification. Mild dementia. Mild late onset Alzheimer's dementia without behavioral disturbance, psychotic disturbance, mood disturbance, or anxiety. Mild late onset Alzheimer's dementia without behavioral disturbance, psychotic disturbance, mood disturbance, or anxiety. TECHNIQUE: Axial UBALDO FLAIR, UBALDO T2, diffusion and susceptibility weighted imaging without contrast, using the ADNI dementia protocol and 3-D post-processing using the NeuroQuant software at an independent workstation with concurrent physician supervision and images were created, reviewed and archived. MQ: [id number] Comparison: None available RESULT: QUALITATIVE: Acute Intracranial Process: None. Chronic Intracranial Process: Scattered patchy areas of T2/FLAIR hyperintensity in the supratentorial white matter, nonspecific, but likely representing mild chronic microvascular ischemic change. Number of chronic lacunar infarcts: None Location of chronic lacunar infarcts: Not applicable Age related white matter changes (ARWMC) rating: White matter lesions: 1 Basal ganglia lesions: 0 * Basal ganglia according to Wahlund et al. includes the striatum, globus pallidus, thalamus, internal/external capsule, and insula. Only basal ganglia lesions measuring greater than 5 mm in size modify the rating. Prior intracranial hemorrhage: Parenchymal microhemorrhages: 0 Other (siderosis/macrohemo rrhages (>10mm): Not Applicable Qualitative brain and hippocampal volume loss for age: Cortex: Mild. White Matter: Moderate. Hippocampi: Moderate to severe. Symmetric. Ventricles: Commensurate with volume loss. Brain Parenchymal Signal and Morphology: The brain parenchyma is otherwise within normal limits of signal and morphology. There is no evidence of an intracranial mass or extraaxial fluid collection. Other Findings: Bilateral pseudophakia. QUANTITATIVE: Exam Quality: Good for volumetric analysis. Segmentation: Negligible mismapping by visual inspection. Quantitative Data: Total Hippocampal Volume: Percentile for age: 1st Asymmetry Index: 9.7 Superior Lateral Ventricular Volume: Percentile for age: 96th Asymmetry Index: -2.25 Inferior Lateral Ventricular Volume: Percentile for age: 96th Asymmetry Index: -23.1 Frontal Lobe Volume: Percentile for age: 66th Asymmetry Index: -3.23 Temporal Lobe Volume: Percentile for age: 81st Asymmetry Index: 1.56 Parietal Lobe Volume: Percentile for age: 39th Occipital Lobe Volume: Percentile for age: 99th Whole Brain Volume: Percentile for age: 9th Concordance between qualitative and quantitative hippocampal volume assessment: Concordant Change in brain volumes: No previous volumetric study for comparison Mean hippocampal volume loss among normal elderly: 0.7% per year, (-0.3 to 1.7; Arsalan 2008; also Mando 2010). DIVISION OF RADIOLOGY Provider, [facility] [place] - 02/15/2024 * * *Final Report* * * DATE OF EXAM: Feb 15 2024 12:15PM [facility]015 - MRI BRAIN W QUANT WO IVCON / PROCEDURE REASON: multiple diagnoses * * * * Physician Interpretation * * * * EXAMINATION: MRI BRAIN W QUANT WO IVCON, MRI 3D POST PROCESSING Clinical history: As provided by the ordering clinician via order question entries: For anatomic quantification. Mild dementia. Mild late onset Alzheimer's dementia without behavioral disturbance, psychotic disturbance, mood disturbance, or anxiety. Mild late onset Alzheimer's dementia without behavioral disturbance, psychotic disturbance, mood disturbance, or anxiety. TECHNIQUE: Axial UBALDO FLAIR, UBALDO T2, diffusion and susceptibility weighted imaging without contrast, using the ADNI dementia protocol and 3-D post-processing using the Feedzai software at an independent workstation with concurrent physician supervision and images were created, reviewed and archived. MQ: [id number] Comparison: None available RESULT: QUALITATIVE: Acute Intracranial Process: None. Chronic Intracranial Process: Scattered patchy areas of T2/FLAIR hyperintensity in the supratentorial white matter, nonspecific, but likely representing mild chronic microvascular ischemic change. Number of chronic lacunar infarcts: None Location of chronic lacunar infarcts: Not applicable Age related white matter changes (ARWMC) rating: White matter lesions: 1 Basal ganglia lesions: 0 * Basal ganglia according to Wahlund et al. includes the striatum, globus pallidus, thalamus, internal/external capsule, and insula. Only basal ganglia lesions measuring greater than 5 mm in size modify the rating. Prior intracranial hemorrhage: Parenchymal microhemorrhages: 0 Other (siderosis/macrohemo rrhages (>10mm): Not Applicable Qualitative brain and hippocampal volume loss for age: Cortex: Mild. White Matter: Moderate. Hippocampi: Moderate to severe. Symmetric. Ventricles: Commensurate with volume loss. Brain Parenchymal Signal and Morphology: The brain parenchyma is otherwise within normal limits of signal and morphology. There is no evidence of an intracranial mass or extraaxial fluid collection. Other Findings: Bilateral pseudophakia. QUANTITATIVE: Exam Quality: Good for volumetric analysis. Segmentation: Negligible mismapping by visual inspection. Quantitative Data: Total Hippocampal Volume: Percentile for age: 1st Asymmetry Index: 9.7 Superior Lateral Ventricular Volume: Percentile for age: 96th Asymmetry Index: -2.25 Inferior Lateral Ventricular Volume: Percentile for age: 96th Asymmetry Index: -23.1 Frontal Lobe Volume: Percentile for age: 66th Asymmetry Index: -3.23 Temporal Lobe Volume: Percentile for age: 81st Asymmetry Index: 1.56 Parietal Lobe Volume: Percentile for age: 39th Occipital Lobe Volume: Percentile for age: 99th Whole Brain Volume: Percentile for age: 9th Concordance between qualitative and quantitative hippocampal volume assessment: Concordant Change in brain volumes: No previous volumetric study for comparison Mean hippocampal volume loss among normal elderly: 0.7% per year, (-0.3 to 1.7; Arsalan 2008; also Mando 2010). IMPRESSION IMPRESSION: * No apparent acute intracranial process or intracranial mass. * Mild cortical volume loss, moderate central volume loss, and moderate to advanced bilateral hippocampal volume loss. * Hippocampal volumes at the first percentile when compared to age matched normal controls by quantitative analysis. * Mild white matter disease which is nonspecific but likely reflective of chronic microvascular ischemia. * No evidence of parenchymal microhemorrhages by MRI. REFERENCES: White matter lesions 0 = No lesions (including symmetrical, well-defined caps or bands) 1 = Focal lesions 2 = Beginning of confluence 3 = Diffuse involvement of entire region Basal ganglia lesions 0 = No lesions 1 = 1 focal lesion ( > 5 mm) 2 = >1 focal lesion ( > 5 mm) 3 = Confluent lesions Mando Almanzar, et al. The clinical use of structural MRI in Alzheimer disease. Nature Reviews Neurology 6;67 (2010). Arsalan et al. Validation of a fully automated 3D hippocampal segmentation method using subjects with Alzheimer's disease mild cognitive impairment, and elderly controls. Neuroimage 43;59 (2008). Wahlund et al. A New Rating Scale for Age-Related White Matter Changes Applicable to MRI and CT. Stroke. 32:1318 (2001). * Asymmetry index defined as difference between left and right volumes divided by mean (%). Age-matched reference charts measure total hippocampal volume (% of intracranial volume). See results from the analysis charts for details. [place] Worker: MAURIZIO Transcribe Date/Time: Feb 15 2024 12:17P D (more content not included)... [facility] MR Unspecified body region 3 D post processingon 02-15-2024 * * *Final Report* * * DATE OF EXAM: Feb 15 2024 12:15PM [facility] 0280 - MRI 3D POST PROCESSING / PROCEDURE REASON: multiple diagnoses * * * * Physician Interpretation * * * * EXAMINATION: MRI BRAIN W QUANT WO IVCON, MRI 3D POST PROCESSING Clinical history: As provided by the ordering clinician via order question entries: For anatomic quantification. Mild dementia. Mild late onset Alzheimer's dementia without behavioral disturbance, psychotic disturbance, mood disturbance, or anxiety. Mild late onset Alzheimer's dementia without behavioral disturbance, psychotic disturbance, mood disturbance, or anxiety. TECHNIQUE: Axial UBALDO FLAIR, UBALDO T2, diffusion and susceptibility weighted imaging without contrast, using the ADNI dementia protocol and 3-D post-processing using the NeuroQuant software at an independent workstation with concurrent physician supervision and images were created, reviewed and archived. MQ: [id number] Comparison: None available RESULT: QUALITATIVE: Acute Intracranial Process: None. Chronic Intracranial Process: Scattered patchy areas of T2/FLAIR hyperintensity in the supratentorial white matter, nonspecific, but likely representing mild chronic microvascular ischemic change. Number of chronic lacunar infarcts: None Location of chronic lacunar infarcts: Not applicable Age related white matter changes (ARWMC) rating: White matter lesions: 1 Basal ganglia lesions: 0 * Basal ganglia according to Wahlund et al. includes the striatum, globus pallidus, thalamus, internal/external capsule, and insula. Only basal ganglia lesions measuring greater than 5 mm in size modify the rating. Prior intracranial hemorrhage: Parenchymal microhemorrhages: 0 Other (siderosis/macrohemo rrhages (>10mm): Not Applicable Qualitative brain and hippocampal volume loss for age: Cortex: Mild. White Matter: Moderate. Hippocampi: Moderate to severe. Symmetric. Ventricles: Commensurate with volume loss. Brain Parenchymal Signal and Morphology: The brain parenchyma is otherwise within normal limits of signal and morphology. There is no evidence of an intracranial mass or extraaxial fluid collection. Other Findings: Bilateral pseudophakia. QUANTITATIVE: Exam Quality: Good for volumetric analysis. Segmentation: Negligible mismapping by visual inspection. Quantitative Data: Total Hippocampal Volume: Percentile for age: 1st Asymmetry Index: 9.7 Superior Lateral Ventricular Volume: Percentile for age: 96th Asymmetry Index: -2.25 Inferior Lateral Ventricular Volume: Percentile for age: 96th Asymmetry Index: -23.1 Frontal Lobe Volume: Percentile for age: 66th Asymmetry Index: -3.23 Temporal Lobe Volume: Percentile for age: 81st Asymmetry Index: 1.56 Parietal Lobe Volume: Percentile for age: 39th Occipital Lobe Volume: Percentile for age: 99th Whole Brain Volume: Percentile for age: 9th Concordance between qualitative and quantitative hippocampal volume assessment: Concordant Change in brain volumes: No previous volumetric study for comparison Mean hippocampal volume loss among normal elderly: 0.7% per year, (-0.3 to 1.7; Arsalan 2008; also Mando 2010). DIVISION OF RADIOLOGY Provider, [facility] [place] - 02/15/2024 * * *Final Report* * * DATE OF EXAM: Feb 15 2024 12:15PM [facility]80 - MRI 3D POST PROCESSING / PROCEDURE REASON: multiple diagnoses * * * * Physician Interpretation * * * * EXAMINATION: MRI BRAIN W QUANT WO IVCON, MRI 3D POST PROCESSING Clinical history: As provided by the ordering clinician via order question entries: For anatomic quantification. Mild dementia. Mild late onset Alzheimer's dementia without behavioral disturbance, psychotic disturbance, mood disturbance, or anxiety. Mild late onset Alzheimer's dementia without behavioral disturbance, psychotic disturbance, mood disturbance, or anxiety. TECHNIQUE: Axial UBALDO FLAIR, UBALDO T2, diffusion and susceptibility weighted imaging without contrast, using the ADNI dementia protocol and 3-D post-processing using the Feedzai software at an independent workstation with concurrent physician supervision and images were created, reviewed and archived. MQ: [id number]_[id number] Comparison: None available RESULT: QUALITATIVE: Acute Intracranial Process: None. Chronic Intracranial Process: Scattered patchy areas of T2/FLAIR hyperintensity in the supratentorial white matter, nonspecific, but likely representing mild chronic microvascular ischemic change. Number of chronic lacunar infarcts: None Location of chronic lacunar infarcts: Not applicable Age related white matter changes (ARWMC) rating: White matter lesions: 1 Basal ganglia lesions: 0 * Basal ganglia according to Wahlund et al. includes the striatum, globus pallidus, thalamus, internal/external capsule, and insula. Only basal ganglia lesions measuring greater than 5 mm in size modify the rating. Prior intracranial hemorrhage: Parenchymal microhemorrhages: 0 Other (siderosis/macrohemo rrhages (>10mm): Not Applicable Qualitative brain and hippocampal volume loss for age: Cortex: Mild. White Matter: Moderate. Hippocampi: Moderate to severe. Symmetric. Ventricles: Commensurate with volume loss. Brain Parenchymal Signal and Morphology: The brain parenchyma is otherwise within normal limits of signal and morphology. There is no evidence of an intracranial mass or extraaxial fluid collection. Other Findings: Bilateral pseudophakia. QUANTITATIVE: Exam Quality: Good for volumetric analysis. Segmentation: Negligible mismapping by visual inspection. Quantitative Data: Total Hippocampal Volume: Percentile for age: 1st Asymmetry Index: 9.7 Superior Lateral Ventricular Volume: Percentile for age: 96th Asymmetry Index: -2.25 Inferior Lateral Ventricular Volume: Percentile for age: 96th Asymmetry Index: -23.1 Frontal Lobe Volume: Percentile for age: 66th Asymmetry Index: -3.23 Temporal Lobe Volume: Percentile for age: 81st Asymmetry Index: 1.56 Parietal Lobe Volume: Percentile for age: 39th Occipital Lobe Volume: Percentile for age: 99th Whole Brain Volume: Percentile for age: 9th Concordance between qualitative and quantitative hippocampal volume assessment: Concordant Change in brain volumes: No previous volumetric study for comparison Mean hippocampal volume loss among normal elderly: 0.7% per year, (-0.3 to 1.7; Arsalan 2008; also Mando 2010). IMPRESSION IMPRESSION: * No apparent acute intracranial process or intracranial mass. * Mild cortical volume loss, moderate central volume loss, and moderate to advanced bilateral hippocampal volume loss. * Hippocampal volumes at the first percentile when compared to age matched normal controls by quantitative analysis. * Mild white matter disease which is nonspecific but likely reflective of chronic microvascular ischemia. * No evidence of parenchymal microhemorrhages by MRI. REFERENCES: White matter lesions 0 = No lesions (including symmetrical, well-defined caps or bands) 1 = Focal lesions 2 = Beginning of confluence 3 = Diffuse involvement of entire region Basal ganglia lesions 0 = No lesions 1 = 1 focal lesion ( > 5 mm) 2 = >1 focal lesion ( > 5 mm) 3 = Confluent lesions Mando Almanzar, et al. The clinical use of structural MRI in Alzheimer disease. Nature Reviews Neurology 6;67 (2010). Arsalan et al. Validation of a fully automated 3D hippocampal segmentation method using subjects with Alzheimer's disease mild cognitive impairment, and elderly controls. Neuroimage 43;59 (2008). Wahlund et al. A New Rating Scale for Age-Related White Matter Changes Applicable to MRI and CT. Stroke. 32:1318 (2001). * Asymmetry index defined as difference between left and right volumes divided by mean (%). Age-matched reference charts measure total hippocampal volume (% of intracranial volume). See results from the analysis charts for details. Mastic Worker: MAURIZIO Transcribe Date/Time: Feb 15 2024 12:17P Dicta (more content not included)... [facility] MRI 3D POST PROCESSINGon MRI 3D POST PROCESSING * * *Final Report * * * DATE OF EXAM: Feb 15 2024 12:15PM [facility] 0280 - MRI 3D POST PROCESSING / PROCEDURE REASON: multiple diagnoses * * * * Physician Interpretation * * * * EXAMINATION: MRI BRAIN W QUANT WO IVCON, MRI 3D POST PROCESSING Clinical history: As provided by the ordering clinician via order question entries: For anatomic quantification. Mild dementia. Mild late onset Alzheimer's dementia without behavioral disturbance, psychotic disturbance, mood disturbance, or anxiety. Mild late onset Alzheimer's dementia without behavioral disturbance, psychotic disturbance, mood disturbance, or anxiety. TECHNIQUE: Axial UBALDO FLAIR, UBALDO T2, diffusion and susceptibility weighted imaging without contrast, using the ADNI dementia protocol and 3-D post-processing using the Feedzai software at an independent workstation with concurrent physician supervision and images were created, reviewed and archived. MQ: [id number] Comparison: None available RESULT: QUALITATIVE: Acute Intracranial Process: None. Chronic Intracranial Process: Scattered patchy areas of T2/FLAIR hyperintensity in the supratentorial white matter, nonspecific, but likely representing mild chronic microvascular ischemic change. Number of chronic lacunar infarcts: None Location of chronic lacunar infarcts: Not applicable Age related white matter changes (ARWMC) rating: White matter lesions: 1 Basal ganglia lesions: 0 * Basal ganglia according to Wahlund et al. includes the striatum, globus pallidus, thalamus, internal/external capsule, and insula. Only basal ganglia lesions measuring greater than 5 mm in size modify the rating. Prior intracranial hemorrhage: Parenchymal microhemorrhages: 0 Other (siderosis/macrohemo rrhages (>10mm): Not Applicable Qualitative brain and hippocampal volume loss for age: Cortex: Mild. White Matter: Moderate. Hippocampi: Moderate to severe. Symmetric. Ventricles: Commensurate with volume loss. Brain Parenchymal Signal and Morphology: The brain parenchyma is otherwise within normal limits of signal and morphology. There is no evidence of an intracranial mass or extraaxial fluid collection. Other Findings: Bilateral pseudophakia. QUANTITATIVE: Exam Quality: Good for volumetric analysis. Segmentation: Negligible mismapping by visual inspection. Quantitative Data: Total Hippocampal Volume: Percentile for age: 1st Asymmetry Index: 9.7 Superior Lateral Ventricular Volume: Percentile for age: 96th Asymmetry Index: -2.25 Inferior Lateral Ventricular Volume: Percentile for age: 96th Asymmetry Index: -23.1 Frontal Lobe Volume: Percentile for age: 66th Asymmetry Index: -3.23 Temporal Lobe Volume: Percentile for age: 81st Asymmetry Index: 1.56 Parietal Lobe Volume: Percentile for age: 39th Occipital Lobe Volume: Percentile for age: 99th Whole Brain Volume: Percentile for age: 9th Concordance between qualitative and quantitative hippocampal volume assessment: Concordant Change in brain volumes: No previous volumetric study for comparison Mean hippocampal volume loss among normal elderly: 0.7% per year, (-0.3 to 1.7; Arsalan 2008; also Mando 2010). IMPRESSION: * No apparent acute intracranial process or intracranial mass. * Mild cortical volume loss, moderate central volume loss, and moderate to advanced bilateral hippocampal volume loss. * Hippocampal volumes at the first percentile when compared to age matched normal controls by quantitative analysis. * Mild white matter disease which is nonspecific but likely reflective of chronic microvascular ischemia. * No evidence of parenchymal microhemorrhages by MRI. REFERENCES: White matter lesions 0 = No lesions (including symmetrical, well-defined caps or bands) 1 = Focal lesions 2 = Beginning of confluence 3 = Diffuse involvement of entire region Basal ganglia lesions 0 = No lesions 1 = 1 focal lesion ( > 5 mm) 2 = >1 focal lesion ( > 5 mm) 3 = Confluent lesions Mando Almanzar, et al. The clinical use of structural MRI in Alzheimer disease. Nature Reviews Neurology 6;67 (2010). Arsalan et al. Validation of a fully automated 3D hippocampal segmentation method using subjects with Alzheimer's disease mild cognitive impairment, and elderly controls. Neuroimage 43;59 (2008). Wahlund et al. A New Rating Scale for Age-Related White Matter Changes Applicable to MRI and CT. Stroke. 32:1318 (2001). * Asymmetry index defined as difference between left and right volumes divided by mean (%). Age-matched reference charts measure total hippocampal volume (% of intracranial volume). See results from the analysis charts for details. Mastic Worker: PSCB Transcribe Date/Time: Feb 15 2024 12:17P Dictated by : NIMO LANGFORD MD This examination was interpreted and the report reviewed and electronically signed by: NIMO LANGFORD MD on Feb 15 2024 12:55PM EST [id number] (more content not included)... Normal [facility] MRI BRAIN W QUANT WO IVCONon 02-15-2024 MRI BRAIN W QUANT WO IVCON * * *Final Report* * * DATE OF EXAM: Feb 15 2024 12:15PM [facility] 3015 - MRI BRAIN W QUANT WO IVCON / PROCEDURE REASON: multiple diagnoses * * * * Physician Interpretation * * * * EXAMINATION: MRI BRAIN W QUANT WO IVCON, MRI 3D POST PROCESSING Clinical history: As provided by the ordering clinician via order question entries: For anatomic quantification. Mild dementia. Mild late onset Alzheimer's dementia without behavioral disturbance, psychotic disturbance, mood disturbance, or anxiety. Mild late onset Alzheimer's dementia without behavioral disturbance, psychotic disturbance, mood disturbance, or anxiety. TECHNIQUE: Axial UBALDO FLAIR, UBALDO T2, diffusion and susceptibility weighted imaging without contrast, using the ADNI dementia protocol and 3-D post-processing using the Feedzai software at an independent workstation with concurrent physician supervision and images were created, reviewed and archived. MQ: [id number] Comparison: None available RESULT: QUALITATIVE: Acute Intracranial Process: None. Chronic Intracranial Process: Scattered patchy areas of T2/FLAIR hyperintensity in the supratentorial white matter, nonspecific, but likely representing mild chronic microvascular ischemic change. Number of chronic lacunar infarcts: None Location of chronic lacunar infarcts: Not applicable Age related white matter changes (ARWMC) rating: White matter lesions: 1 Basal ganglia lesions: 0 * Basal ganglia according to Wahlund et al. includes the striatum, globus pallidus, thalamus, internal/external capsule, and insula. Only basal ganglia lesions measuring greater than 5 mm in size modify the rating. Prior intracranial hemorrhage: Parenchymal microhemorrhages: 0 Other (siderosis/macrohemo rrhages (>10mm): Not Applicable Qualitative brain and hippocampal volume loss for age: Cortex: Mild. White Matter: Moderate. Hippocampi: Moderate to severe. Symmetric. Ventricles: Commensurate with volume loss. Brain Parenchymal Signal and Morphology: The brain parenchyma is otherwise within normal limits of signal and morphology. There is no evidence of an intracranial mass or extraaxial fluid collection. Other Findings: Bilateral pseudophakia. QUANTITATIVE: Exam Quality: Good for volumetric analysis. Segmentation: Negligible mismapping by visual inspection. Quantitative Data: Total Hippocampal Volume: Percentile for age: 1st Asymmetry Index: 9.7 Superior Lateral Ventricular Volume: Percentile for age: 96th Asymmetry Index: -2.25 Inferior Lateral Ventricular Volume: Percentile for age: 96th Asymmetry Index: -23.1 Frontal Lobe Volume: Percentile for age: 66th Asymmetry Index: -3.23 Temporal Lobe Volume: Percentile for age: 81st Asymmetry Index: 1.56 Parietal Lobe Volume: Percentile for age: 39th Occipital Lobe Volume: Percentile for age: 99th Whole Brain Volume: Percentile for age: 9th Concordance between qualitative and quantitative hippocampal volume assessment: Concordant Change in brain volumes: No previous volumetric study for comparison Mean hippocampal volume loss among normal elderly: 0.7% per year, (-0.3 to 1.7; Arsalan 2008; also Mando 2010). IMPRESSION: * No apparent acute intracranial process or intracranial mass. * Mild cortical volume loss, moderate central volume loss, and moderate to advanced bilateral hippocampal volume loss. * Hippocampal volumes at the first percentile when compared to age matched normal controls by quantitative analysis. * Mild white matter disease which is nonspecific but likely reflective of chronic microvascular ischemia. * No evidence of parenchymal microhemorrhages by MRI. REFERENCES: White matter lesions 0 = No lesions (including symmetrical, well-defined caps or bands) 1 = Focal lesions 2 = Beginning of confluence 3 = Diffuse involvement of entire region Basal ganglia lesions 0 = No lesions 1 = 1 focal lesion ( > 5 mm) 2 = >1 focal lesion ( > 5 mm) 3 = Confluent lesions Mando Almanzar, et al. The clinical use of structural MRI in Alzheimer disease. Nature Reviews Neurology 6;67 (2010). Arsalan et al. Validation of a fully automated 3D hippocampal segmentation method using subjects with Alzheimer's disease mild cognitive impairment, and elderly controls. Neuroimage 43;59 (2008). Wahlund et al. A New Rating Scale for Age-Related White Matter Changes Applicable to MRI and CT. Stroke. 32:1318 (2001). * Asymmetry index defined as difference between left and right volumes divided by mean (%). Age-matched reference charts measure total hippocampal volume (% of intracranial volume). See results from the analysis charts for details. Mastic Worker: MAURIZIO Transcribe Date/Time: Feb 15 2024 12:17P Dictated by : NIMO LANGFORD MD This examination was interpreted and the report reviewed and electronically signed by: NIMO LANGFORD MD on Feb 15 2024 12:55PM EST [id number] (more content not included)... Normal [facility] No Panel Informationon 02-14 IMPRESSION: * No apparent acute intracranial process or intracranial mass. * Mild cortical volume loss, moderate central volume loss, and moderate to advanced bilateral hippocampal volume loss. * Hippocampal volumes at the first percentile when compared to age matched normal controls by quantitative analysis. * Mild white matter disease which is nonspecific but likely reflective of chronic microvascular ischemia. * No evidence of parenchymal microhemorrhages by MRI. REFERENCES: White matter lesions 0 = No lesions (including symmetrical, well-defined caps or bands) 1 = Focal lesions 2 = Beginning of confluence 3 = Diffuse involvement of entire region Basal ganglia lesions 0 = No lesions 1 = 1 focal lesion ( > 5 mm) 2 = >1 focal lesion ( > 5 mm) 3 = Confluent lesions Mando Almanzar et al. The clinical use of structural MRI in Alzheimer disease. Nature Reviews Neurology 6;67 (2010). Arsalan et al. Validation of a fully automated 3D hippocampal segmentation method using subjects with Alzheimer's disease mild cognitive impairment, and elderly controls. Neuroimage 43;59 (2008). Beatris et al. A New Rating Scale for Age-Related White Matter Changes Applicable to MRI and CT. Stroke. 32:1318 (2001). * Asymmetry index defined as difference between left and right volumes divided by mean (%). Age-matched reference charts measure total hippocampal volume (% of intracranial volume). See results from the analysis charts for details. Mastic Worker: MAURIZIO Transcribe Date/Time: Feb 15 2024 12:17P Dictated by : NIMO LANGFORD MD This examination was interpreted and the report reviewed and electronically signed by: NIMO LANGFORD MD on Feb 15 2024 12:55PM [facility] DIVISION OF RADIOLOGY Radiology Study observation (narrative) Geno colin [facility] No Panel InformationOrdered By: Ccf Provider on 02-15-2024 [facility] CNOVon 01-23-2024 CNOV Office Visit (NEBT) DERRICK MONAE ([id number]) 1935 M Date Time Provider Department 01/23/24 10:00 AM PREET LALA During your visit today, we recorded the following information about you: Pulse Blood pressure Weight 55/minute 158/70 72.6 kg Ewa Monae OCCA 01/23/2024 10:10 AM Signed Derrick Monae is a 88 year old year old right handed man Accompanied by: spouse and son. 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 Patient is [place] he don't know why he here. His made the appointment she stated he is forgetful. Vital Signs: BP 158/70 Pulse (!) 55 Wt 72.6 kg (160 lb 1.6 oz) BMI 25.84 kg/m? Preet Lala DO 01/23/2024 1:22 PM Signed Reason for Referral: Cognitive changes and Memory loss I had the pleasure of seeing this 88 year old year old male at the [facility]. The patient is referred by SELF Patient is accompanied by and information obtained from Spouse and Son and available records in the system. Background and History of Present Illness: Symptoms Cognition Memory problems include short-term memory impairment, rapid forgetting, repeating statements and questions and forgetting events. He gets lost driving. There is impaired reasoning and impaired judgment. There are episodes of confusion. In daily life, he needs assistance with instrumental ADL?s. Behavior Mood is described as normal ( notes he is depressed but patient denies). He is sleeping more. Behavioral aberrations: Psychosis: Denies hallucinations or delusions. Onset and Progression: Started several months ago. First time they noticed something was off was in September. He got really confused at a [employer]. He had no idea where they were. Another time at a graduation green party he thought they already went there. Has always been really good with directions. Has been having more problems now. About 1.5 months ago they drove to a location they had been several times and he did not know where they were. notes that they tell him something one day and the next day or even the same day he does not remember it at all. He is always with his when driving. There is concern that he would get lost. He has significant hearing problems. Feels like this has been gradually getting worse as well. 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 There was concerns with his job and they told him to stop driving about a year ago. It is unclear what the reasons were for. There were jobs that took longer than it should have. Now his has to set up his medications and even when she does this he often forgets to take them. Sometimes he uses his card at the bank and it says insufficient funds . took away his credit card because he was not paying back his card. She says he did not realize when you use a credit card you have to pay it back. This was about a month ago. He can't hear out of phone very well so does not use this much. writes everything down as far shopping otherwise he would not be able to keep track and shop for his needs. They were in his truck the other day and he could not figure out how to turn his air conditioner on. They had to get the owners eduard out to figure this out for him. 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 Mental Health: Patient denies any depression or anxiety but says she thinks he is depressed because he cannot do things like he used to. Sleep: He is sleeping too much, sometimes till 1pm. Have you ever been told, or suspected yourself, that you seem to ?act out your dreams? while asleep (for example, punching, flailing your arms in the air, making running movements, etc.)?? No 5. Activities of Daily Living [place] Index of Walsh in Activities of Daily Living (A.D.L.) Bathing: Bathes self completely or needs help in bathing only a single part of the body such as the back, genital area or disabled extremity. (1 POINT) Dressing: Get clothes from closets and drawers and puts on clothes and outer garments complete with fasteners. May have help tying shoes. (1 POINT) Toileting: Goes to toilet, gets on and off, arranges clothes, cleans genital area without help. (1 POINT) Transferring: Moves in and out of bed or chair unassisted. Mechanical transfer aids are acceptable. (1 POINT) Continence: Exercises complete self-control over urination and defecation. (1 POINT) Feeding: Gets food from plate into mouth without help. Preparation of food may be done by another person. (1 POINT) -Score: 6 (higher is more independent, 0-7) No data to display Previous and Current treatment: none Has a CT (more content not included)... Normal [facility] No Panel Informationon 01-22 Interpretation and review of laboratory results Normal [facility] THYROID STIMULATING HORMONEo n 01-23-2024 TSH Qn 1.620 m[IU]/L [facility] TSH SerPl-aCncon 01-23-2024 TSH Qn 1.620 m[IU]/L Normal 0.270-4.200 [facility] Comment on above: Order Comment: Speci men Type: BLOOD SPECIMEN Ordering Facility: [facility] Address: [address] [place] [address] Performed By: #### 3 2132-03 #### [facility] CLIA [id number] [address] [place] [address] [place] VITAMIN B12on 01-23-2024 Cobalamin (Vitamin B12) [Mass/Vol] 500 pg/mL 232 - 1245 pg/mL [facility] Vit B12 SerPl-mCncon 024 Cobalamin (Vitamin B12) [Mass/Vol] 500 pg/mL Normal 232-1245 [facility] Comment on above: Order Comment: Speci men Type: BLOOD SPECIMEN Ordering Facility: [facility] Address: [address] [place] [address] Performed By: #### 3 016-3, 2132-03 #### [facility] CLIA [id number] [address] [place] [address] [place] CBC AUTO DIFFon 10-01-2021 BASO # 0.1 103/ul Normal 0.0-0.1 [facility] Comment on above: Performed By: #### C BC #### [facility] [address] [place] [address] Dr. Mazin Davila Basophils/100 WBC (Bld) 1.3 % Normal 0.2-2.0 [facility] Comment on above: Performed By: #### C BC #### [facility] [address] [place] [address] Dr. Mazin Davila EO # 0.3 103/ul Normal 0.0-0.7 [facility] Comment on above: Performed By: #### C BC #### [facility] [address] [place] [address] Dr. Mazin Davila Eosinophils/100 WBC (Bld) 4.3 % Normal 0.9-7.0 [facility] Comment on above: Performed By: #### C BC #### [facility] [address] [place] [address] Dr. Mazin Davila Erythrocyte distribution width (RBC) [Ratio] 13.6 % Normal 11.0-15.0 [facility] Comment on above: Performed By: #### C BC #### [facility] [address] [place] [address] Dr. Mazin Davila Hematocrit (Bld) [Volume fraction] 45.4 % Normal 42.0-54.0 [facility] Comment on above: Performed By: #### C BC #### [facility] [address] [place] [address] Dr. Mazin Davila Hemoglobin (Bld) [Mass/Vol] 14.4 g/dL Normal 14.0-18.0 [facility] Comment on above: Performed By: #### C BC #### [facility] [address] [place] [address] Dr. Mazin Davila IG # 0.03 10e3/ul Normal 0.00-0.03 [facility] Comment on above: Performed By: #### C BC #### [facility] [address] [place] [address] Dr. Mazin Davila IG % 0.4 % Normal 0.0-0.5 [facility] Comment on above: Performed By: #### C BC #### [facility] [address] [place] [address] Dr. Mazin Davila LYMPH # 1.2 103/ul Normal 1.2-3.8 [facility] Comment on above: Performed By: #### C BC #### [facility] [address] [place] [address] Dr. Mazin Davila Lymphocytes/100 WBC (Bld) 15.1 % Critically low 20.5-60.0 [facility] Comment on above: Performed By: #### C BC #### [facility] [address] [place] [address] Dr. Mazin Davila MANUAL DIFF REQ NO Normal [facility] Comment on above: Performed By: #### C BC #### [facility] [address] [place] [address] Dr. Mazin Davila MCH (RBC) [Entitic mass] 30.4 pg Normal 25.9-34.0 [facility] Comment on above: Performed By: #### C BC #### [facility] [address] [place] [address] Dr. Mazin Davila MCHC (RBC) [Mass/Vol] 31.7 g/dL Normal 29.9-35.2 [facility] Comment on above: Performed By: #### C BC #### [facility] [address] [place] [address] Dr. Mazin Davila MCV (RBC) [Entitic vol] 96.0 fL Critically high 80.0-94 .0 [facility] Comment on above: Performed By: #### C BC #### [facility] [address] [place] [address] Dr. Mazin Davila MONO # 0.6 103/ul Normal 0.3-0.8 [facility] Comment on above: Performed By: #### C BC #### [facility] [address] [place] [address] Dr. Mazin Davila Monocytes/100 WBC (Bld) 7.6 % Normal 1.7-12.0 [facility] Comment on above: Performed By: #### C BC #### [facility] [address] [place] [address] Dr. Mazin Davila NEUT # 5.5 103/ul Normal 1.4-6.5 [facility] [facility] Comment on above: Performed By: #### C BC #### [facility] [address] [place] [address] Dr. Mazin Davila Neutrophils/100 WBC (Bld) 71.3 % Normal 43.0-75.0 [facility] Comment on above: Performed By: #### C BC #### [facility] [address] [place] [address] Dr. Mazin Davila Platelet mean volume (Bld) [Entitic vol] 10.2 fL Normal 9.5-13.5 [facility] Comment on above: Performed By: #### C BC #### [facility] [address] [place] [address] Dr. Mazin Davila PLT 314 103/ul Normal 150-450 [facility] Comment on above: Performed By: #### C BC #### [facility] [address] [place] [address] Dr. Mazin Davila RBC 4.73 106/ul Normal 4.70-6.10 [facility] Comment on above: Performed By: #### C BC #### [facility] [address] [place] [address] Dr. Mazin Davila WBC 7.7 103/ul Normal 4.0-11.0 [facility] Comment on above: Performed By: #### C BC #### [facility] [address] [place] [address] Dr. Mazin Davila PROF CHEM 8 (BAS METB)on Anion gap [Moles/Vol] 11.7 mmol/L Normal [facility] Comment on above: Performed By: #### B MP #### [facility] [address] [place] [address] Dr. Mazin Davila Calcium [Mass/Vol] 8.6 mg/dL Normal 8.5-10.1 [facility] Comment on above: Performed By: #### B MP #### [facility] [address] [address] [address] Mazin Davila Chloride [Moles/Vol] 107 mmol/L Normal 98-107 [facility] Comment on above: Performed By: #### B MP #### [facility] [address] [address] [address] Mazin Davila CO2 [Moles/Vol] 26.8 mmol/L Normal 22.0-30.0 [facility] Comment on above: Performed By: #### B MP #### [facility] [address] [address] [address] Mazin Davila Creatinine [Mass/Vol] 1.13 mg/dL Normal 0.66-1.25 [facility] Comment on above: Performed By: #### B MP #### [facility] [address] [address] [address] Mazin Davila EGFR-AF TANZANIAN >60 Normal >=60 [facility] Comment on above: Performed By: #### B MP #### [facility] [address] [address] [address] Mazin Davila EGFR-NON AF TANZANIAN >60 Normal >=60 [facility] Comment on above: Performed By: #### B MP #### [facility] [address] [address] [address] Mazin Davila Glucose [Mass/Vol] 92 mg/dL Normal 74-106 [facility] Comment on above: Performed By: #### B MP #### [facility] [address] [address] [address] Mazin Davila Potassium [Moles/Vol] 4.5 mmol/L Normal 3.4-5.0 [facility] Comment on above: Performed By: #### B MP #### [facility] [address] [address] [address] Mazin Davila Sodium [Moles/Vol] 141 mmol/L Normal 137-145 [facility] Comment on above: Performed By: #### B MP #### [facility] [address] [place], [place] [address] Dr. Mazin Davila Urea nitrogen [Mass/Vol] 26.0 mg/dL Critically high 7.0-18.0 [facility] Comment on above: Performed By: #### B MP #### [facility] [address] [place], [place] [address] Dr. Mazin Davila Urea nitrogen/Creatinine [Mass ratio] 23.0 mg/mg Normal [facility] Comment on above: Performed By: #### B MP #### [facility] [address] [place], [place] [address] Dr. Mazin Davila Vital Signs Date Time Vital Sign Value Performing Clinician Faci lity 04-30-2024 11:25-0400 Body height 167.6 cm Preet Doher DO Work Phone: [facility] 04-30-2024 11:25-0400 Body mass index (BMI) [Ratio] 25.82 kg/m2 Preet Doher DO Work Phone: [facility] 04-30-2024 11:25-0400 Body weight 72.58 kg Preet Doher DO Work Phone: [facility] 04-30-2024 11:25-0400 Diastolic blood pressure 73 mm[Hg] Preet Doher DO Work Phone: [facility] 04-30-2024 11:25-0400 Heart rate 66 /min Preet Doher DO Work Phone: [facility] 04-30-2024 11:25-0400 Systolic blood pressure 155 mm[Hg] Preet Doher DO Work Phone: [facility] 01-23-2024 10:06-0400 Body mass index (BMI) [Ratio] 25.84 kg/m2 Preet Doher DO Work Phone: [facility] 01-23-2024 10:06-0400 Body weight 72.62 kg Preet Doher DO Work Phone: [facility] 01-23-2024 10:06-0400 Diastolic blood pressure 70 mm[Hg] Preet Do DO Work Phone: [facility] 01-23-2024 10:06-0400 Heart rate 55 /min Preet Lala DO Work Phone: [facility] 01-23-2024 10:06-0400 Systolic blood pressure 158 mm[Hg] Preet Do DO Work Phone: [facility] Encounters Encounter Date Encounter Type Care Provider Facility Start: 04-30-2024 End: 04-30-2024 ambulatory PREET DOHER Facility:[facility] Start: 04-30-2024 End: 04-30-2024 Office outpatient visit 40 minutes Preet Lala DO Work Phone: Neurology Comment on above: 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, psychotic disturbance, mood disturbance, or anxiety (HCC) (Primary Dx) Start: 02-15-2024 End: 02-15-2024 ambulatory PREET Facility:[facility] Start: 02-15-2024 End: 02-15-2024 Subsequent hospital visit by physician Mri 6 Radio Main Q (I-Stat/1.5t/3t) Work Phone: MRI Q Comment on above: 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, psychotic disturbance, mood disturbance, or anxiety (HCC) [G30.1, F02.A0] Start: 01-23-2024 End: 01-23-2024 ambulatory PREET LALA Facility:[facility] Start: 01-23-2024 End: 01-23-2024 Office outpatient new 60 minutes Preet Doher DO Work Phone: Neurology Comment on above: 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, psychotic disturbance, mood disturbance, or anxiety (HCC) (Primary Dx) Start: 12-30-2023 End: 12-30-2023 ambulatory JONAS FAWWAD Not Available Start: 06-30-2023 End: 06-30-2023 ambulatory JONAS FAWWAD Not Available Start: 10-01-2021 End: 10-02-2021 ambulatory JONAS FAWWAD Facility:[facility] Procedures Date Procedure Procedure Detail Performing Clinician Start: 02-15-2024 3d rendering w/interp&postproc diff work station Preet Lala DO Work Phone: Start: 02-15-2024 Mri brain brain stem w/o contrast material Preet Lala DO Work Phone: Plan of Treatment Date Care Activity Detail Author Start: 11-10-2024 End: 11-10-2024 Patient encounter procedure 11/10/2024 11:30 AM EDT Office Visit Neurology [address] [place] [address] Esme Arevalo PA-C [address] [place] [address] Mild late onset Alzheimer's dementia without behavioral disturbance, psychotic d... 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 Start: 04-30-2024 End: 04-30-2024 Patient encounter procedure 04/30/2024 11:30 AM EDT Office Visit Neurology [address] [place], [place] [id number] Preet Lala DO [address] [address] 3 month post-MRI FU Neurology Comment on above: 3 month post-MRI FU Start: 03-14-2024 Covid-19 Vaccine ( season) Covid-19 Vaccine () [facility] Start: 03-14-2024 Influenza vaccination Influenza Vacc ine (#1) [facility] Start: 02-15-2024 End: 02-15-2024 Patient encounter procedure 02/15/2024 11:40 AM EDT Appointment MRI Q [address] [id number] MRI brain w quant wo ivcon MRI Q Comment on above: MRI brain w quant wo ivcon Start: 01-23-2024 End: 04-23-2024 VITAMIN B1 (THIAMINE), WHOLE BLOOD VITAMIN B1 (THIAMINE), WHOLE BLOOD Lab Routine Mild late onset Alzheimer's dementia without behavioral disturbance, psychotic disturbance, mood disturbance, or anxiety (HCC) Expected: 01/23/2024, Expires: 04/23/2024 [facility] Comment on above: Expected: 01/23/2024 , Expires: 04/23/2024 Start: 07-14-2023 Advance Directive Discussion Advance Directive Discussion [facility] Start: 07-14-2023 Behavioral Health Screening Behavioral Health Screening [facility] Start: 03-14-2023 Covid-19 Vaccine () Covid-19 Vaccine () [facility] Start: 04-16-2014 Diabetes Screening Diabetes Screenin g [facility] Start: 2012 RSV Vaccine (1 - 1-d ose 75+ series) RSV Vaccine (1 - 1-dose 75+ series) [facility] Start: 1997 RSV Vaccine (1 - 1-d ose 60+ series) RSV Vaccine (1 - 1-dose 60+ series) [facility] Start: 1987 Shingrix Vaccine (1 of 2) Shingrix Vaccine (1 of 2) [facility] Start: 1956 Urine microalbumin profile DTaP,Tdap,Td Vaccine (1 - Tdap) [facility] Start: 1955 Anxiety Screening Anxiety Screening [facility] Start: 1955 Depression Screening Depression Scre ening [facility] Start: 1955 Spirometry Spirometry [facility] End: 02-21-2025 MR Brain WO contrast MRI BRAIN W QUANT WO IVCON Radiology Routine Mild late onset Alzheimer's dementia without behavioral disturbance, psychotic disturbance, mood disturbance, or anxiety (HCC) 1 Occurrences starting 01/23/2024 until 02/21/2025 [facility] Work Phone: Comment on above: 1 Occurrences starti ng 01/23/2024 until 02/21/2025 End: 02-21-2025 MR Unspecified body region 3D post processing MRI 3D POST PROCESSING Radiology Routine Mild late onset Alzheimer's dementia without behavioral disturbance, psychotic disturbance, mood disturbance, or anxiety (HCC) 1 Occurrences starting 01/23/2024 until 02/21/2025 [facility] Comment on above: 1 Occurrences starti ng 01/23/2024 until 02/21/2025 Immunizations Immunization Date Immunization Notes Care Provider Fa olvinsandra 03-22-2022 influenza virus vacc ine, unspecified formulation Preet Lala DO Work Phone: [facility] Payers Date Payer Category Payer Medicare [id number] 2023 Unknown ANTH BLUE [facility] AND BLUE [facility] ANTH MEDICARE ADVANTAGE HMO [id number] 2023-Present [phone] [address] [place] [address] O [id number] 2023 Medicare [id number] 1957 Medicare [id number] 1935 Unknown [id number] 1937 Unknown [id number] 1937 Unknown [id number] Unknown [id number] Social History Date Type Detail Facility Start: 01-23-2024 [facility] History of tobacco use Current smoker [facility] Start: 01-23-2024 End: 04-30-2024 Alcohol intake Current drinker of alcohol (finding) [facility] Start: 01-23-2024 End: 04-30-2024 History of Social function [facility] Start: 01-23-2024 End: 04-30-2024 Tobacco use panel [facility] National Score (1-10 0), lower number is lower risk 65 [facility] Start: 01-23-2024 Tobacco Comment He msoked 1-2 PPd x 25-30 years, quit 20-25 years ago [facility] Start: 1935 Sex Assigned At Not on file [facility] Clinical Notes 01-23-2024 to 04-30-2024 Patient Preet Dougherty DO - 04/30/2024 11:57 AM Edilberto Brewer MA - 04/30/2024 11:27 AM Edilberto Brewer MA - 04/30/2024 11:27 AM EDTPatient Instructions Note Date & Type Note Facility 04-30-2024 Instructions Preet LalaDO - 04/30/2024 12:34 PM EDT Thank you for meeting with me today. Here is the plan we discussed. We prescribed a medication called Namenda. Namenda can help improve the mental state and daily functioning of some people with memory loss. Remember that Namenda does not cure the memory loss. Namenda can be taken with or without food. Start treatment at 5 mg once per day with gradual increase as follows: First week: One tablet (5mg) one in am Second week: One tablet (5mg) in am and 5 mg in pm Third week: One tablet (10mg) in am and 5 mg in pm Forth week and after: One tablet (10mg) twice a day. More common side effects include: Confusion, constipation, hallucinations, headache, high blood pressure, pain, sleepiness. If ay develop or change in intensity of side effect, tell us as soon as possible. Continue donepezil 10 mg at bedtime Cognitively healthy lifestyle. See the section below Ways to keep your brain healthy A heart healthy diet is a brain healthy diet. The MIND Diet is an evidence based diet proven to slow and protect against cognitive decline. See the section MIND Diet Guidelines below for more information. Follow up 6 months with [facility] If you need to reschedule this please call [phone]. If you need to reach our office for any reason prior to your next visit, please contact us through [employer] or call [phone]. Ways to keep your brain healthy: Follow up regularly with your primary care and other providers to ensure your vascular risk factors (blood pressure, blood sugar, sleep apnea, and cholesterol levels, etc.) are well controlled. Eat a healthy diet, foods that are good for your heart are also good for your brain. It is also important to drink plenty of water to stay hydrated. Exercise - as little as 20 minutes of exercise per day (150 minutes per week) - has been shown to have a positive effect on memory and cognitive function. Maintain an active social life. Get 7-8 hours of sleep per night. If you nap during the day, try to keep napping to a regular schedule. Maintain a predictable and regular daily routine. Try learning new hobbies, games, or skills. Keep your brain active with reading, puzzles, and games. Please refer to healthybrains.org website. It provides evidence based education on diet, exercise and activities that have benefit for memory. MIND Diet guidelines: - Eat 1/2 cup berries, especially blueberries and strawberries, at least 2x per week. - Eat 1 handful (1/4 cup) nuts at least 5x per week. Include walnuts. - Eat 100% whole grains 3x per day (brown rice, wild rice, black rice, quinoa, barley, bulgur, farro, rolled oats, steel cut oats, amaranth, spelt, millet, wheat berries). - Eat 1-2 cups of leafy greens at least 6x per week (spinach, arugula, kale, mustard greens, yaneth greens, dandelion greens, nestor lettuce). - Eat at least 1 other vegetable (other than dark leafy greens) every day. - Eat 1/2 cup beans or lentils at least 3x per week. - Eat fish at least once per week. Choose low mercury fish: salmon, sardines, anchovies, aldana, halibut, scallops. Avoid fried fish and fish high in mercury (swordfish, Surinamese sea flood, orange roughy, ahi tuna, albacore (white) tuna). Choose light/skipjack tuna instead of white tuna, and limit to 2 servings/week because it has some mercury. - Eat chicken at least 2x per week. - Extra virgin olive oil is the primary oil used at home for cooking and on salads. - Limit margarine and butter to less than 1 Tbsp per day. - Limit red meat and processed meats to less than 4x per week. Red meat: beef, pork, conti, venison, veal, bison. Processed meats: shay, hotdogs, salami, sausage, pepperoni, pastrami, cold cuts, ham - Limit sweets, candy, and pastries to less than 5x per week. - Limit cheese to 1 serving per week or less. 1 serving = 1 ounce. - Limit alcohol to 1 drink per day for women and 2 drinks per day for men. - Avoid fried foods and fast foods. Other sources of information and support: When there is a diagnosis of memory problems, no matter the type, we encourage families to educate themselves, learn communication tips, and learn ways to adjust expectations over time. There are many resources available online. Three excellent resources are: The Alzheimer's Association (web site: alz.org/rowe) available 24 hours a day, 7 days per week. Contact: Local: ; Toll free: 171.823.1159 Family Caregiver [place] (web site: Caregiver.org) [employer]-- a secure online solution for quality information, support, and resources for family caregivers. Contact: Toll-free number: [phone] Alzheimers.gov - Find Alzheimer disease and related dementias information, resources, research and more. documented in this encounter [facility] 04-30-2024 Note HNO ID: [id number] Author: PREET LALA DO Service: ? 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 He is accompanied by his and son. Last visit was 01/23/2024 where the plan was as follows: -Start donepezil 5 mg daily for one month followed by 10 mg daily after that -MRI brain -Labs: B12, TSH, B1 -RTC in 3 months after MRI and lab workup -Provided reading materials on disease and the expected disease course Interval update: B12 and TSH were WNL. MRI brain remarkable for hippocampi in the 1st percentile with generalized atrophy. Recently a couple nights ago he had a really hard time physically had a hard time getting up and was kind of out of it. says he cleared right up . He sat in a chair in the kitchen. He was really confused. No convulsing or shaking. Lasted about an hour all together. Has never had similar episodes in the past. Has continued to have cognitive decline since last visit. started giving it to him at night because he was getting sleepy. Denies any vivid dreams, diarrhea, cramping, nausea or dizziness. Background and History of Present Illness: Onset and Progression: Started several months ago. First time they noticed something was off was in September. He got really confused at a [facility]. He had no idea where they were. Another time at a graduation green party he thought they already went there. Has always been really good with directions. Has been having more problems now. About 1.5 months ago they drove to a location they had been several times and he did not know where they were. notes that they tell him something one day and the next day or even the same day he does not remember it at all. He is always with his when driving. There is concern that he would get lost. He has significant hearing problems. Feels like this has been gradually getting worse as well. 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 There was concerns with his job and they told him to stop driving about a year ago. It is unclear what the reasons were for. There were jobs that took longer than it should have. Now his has to set up his medications and even when she does this he often forgets to take them. Sometimes he uses his card at the bank and it says insufficient funds . took away his credit card because he was not paying back his card. She says he did not realize when you use a credit card you have to pay it back. This was about a month ago. He can't hear out of phone very well so does not use this much. writes everything down as far shopping otherwise he would not be able to keep track and shop for his needs. They were in his truck the other day and he could not figure out how to turn his air conditioner on. They had to get the owners eduard out to figure this out for him. 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 Mental Health: Patient denies any depression or anxiety but says she thinks he is depressed because he cannot do things like he used to. Sleep: He is sleeping too much, sometimes till 1pm. Have you ever been told, or suspected yourself, that you seem to ?act out your dreams? while asleep (for example, punching, flailing your arms in the air, making running movements, etc.)?? No 5. Activities of Daily Living [place] Index of Walsh in Activities of Daily Living (A.D.L.) Bathing: Bathes self completely or needs help in bathing only a single part of the body such as the back, genital area or disabled extremity. (1 POINT) Dressing: Get clothes from closets and drawers and puts on clothes and outer garments complete with fasteners. May have help tying shoes. (1 POINT) Toileting: Goes to toilet, gets on and off, arranges clothes, cleans genital area without help. (1 POINT) Transferring: Moves in and out of bed or chair unassisted. Mechanical transfer aids are acceptable. (1 POINT) Continence: Exercises complete self-control over urination and defecation. (1 POINT) Feeding: Gets food from plate into mouth without help. Preparation of food may be done by another person. (1 POINT) -Score: 6 (higher is more independent, 0-7) No data to display Previous and Current treatment: none Has a CT scan or MRI of the brain been done? 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 Education level: few semesters at [employer] Alcohol: He says he drinks 2 beers per day and is concerned he drinks much more than this. Goes through about 24 beers per week. Tobacco: Former smoker many year (more content not included)... [facility] 04-30-2024 History of Present illness Narrative Images from the original note were not included. 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 He is accompanied by his and son. Last visit was 01/23/2024 where the plan was as follows: -Start donepezil 5 mg daily for one month followed by 10 mg daily after that -MRI brain -Labs: B12, TSH, B1 -RTC in 3 months after MRI and lab workup -Provided reading materials on disease and the expected disease course Interval update: B12 and TSH were WNL. MRI brain remarkable for hippocampi in the 1st percentile with generalized atrophy. Recently a couple nights ago he had a really hard time physically had a hard time getting up and was kind of out of it. says he cleared right up . He sat in a chair in the kitchen. He was really confused. No convulsing or shaking. Lasted about an hour all together. Has never had similar episodes in the past. Has continued to have cognitive decline since last visit. started giving it to him at night because he was getting sleepy. Denies any vivid dreams, diarrhea, cramping, nausea or dizziness. Background and History of Present Illness: Onset and Progression: Started several months ago. First time they noticed something was off was in September. He got really confused at a [employer]. He had no idea where they were. Another time at a graduation green party he thought they already went there. Has always been really good with directions. Has been having more problems now. About 1.5 months ago they drove to a location they had been several times and he did not know where they were. notes that they tell him something one day and the next day or even the same day he does not remember it at all. He is always with his when driving. There is concern that he would get lost. He has significant hearing problems. Feels like this has been gradually getting worse as well. 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 There was concerns with his job and they told him to stop driving about a year ago. It is unclear what the reasons were for. There were jobs that took longer than it should have. Now his has to set up his medications and even when she does this he often forgets to take them. Sometimes he uses his card at the bank and it says insufficient funds . took away his credit card because he was not paying back his card. She says he did not realize when you use a credit card you have to pay it back. This was about a month ago. He can't hear out of phone very well so does not use this much. writes everything down as far shopping otherwise he would not be able to keep track and shop for his needs. They were in his truck the other day and he could not figure out how to turn his air conditioner on. They had to get the owners eduard out to figure this out for him. 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 Mental Health: Patient denies any depression or anxiety but says she thinks he is depressed because he cannot do things like he used to. Sleep: He is sleeping too much, sometimes till 1pm. Have you ever been told, or suspected yourself, that you seem to act out your dreams while asleep (for example, punching, flailing your arms in the air, making running movements, etc.)? No 5. Activities of Daily Living Clif[place] Index of Walsh in Activities of Daily Living (A.D.L.) Bathing: Bathes self completely or needs help in bathing only a single part of the body such as the back, genital area or disabled extremity. (1 POINT) Dressing: Get clothes from closets and drawers and puts on clothes and outer garments complete with fasteners. May have help tying shoes. (1 POINT) Toileting: Goes to toilet, gets on and off, arranges clothes, cleans genital area without help. (1 POINT) Transferring: Moves in and out of bed or chair unassisted. Mechanical transfer aids are acceptable. (1 POINT) Continence: Exercises complete self-control over urination and defecation. (1 POINT) Feeding: Gets food from plate into mouth without help. Preparation of food may be done by another person. (1 POINT) -Score: 6 (higher is more independent, 0-7) No data to display Previous and Current treatment: none Has a CT scan or MRI of the brain been done? 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 Education level: few semesters at [employer] Alcohol: He says he drinks 2 beers per day and is concerned he drinks much more than this. Goes through about 24 beers per week. Tobacco: Former smoker many years ago. About 30-40 pack years Illicit drugs: Denies PAST MEDICAL HISTORY Diagnosis Date CAD (coronary artery disease) COPD (chronic obstructive pulmonary disease) ([facility]) GERD (gastroesophageal reflux disease) ALLERGIES Allergen Reactions Pineapple Other: See Comments Tickle in back of throat Sulfa (Sulfonamide * hives + SOB Current Outpatient Medications on File Prior to Visit Medication Sig albuterol HFA (PROVENTIL HFA, VENTOLIN HFA) 90 mcg/actuation inhaler Inhale 2 Puffs as instructed every 4 hours as needed. fluticasone (FLONASE) 50 mcg/actuation nasal spray Use 1 Bartlett in the nose once daily. loratadine-pseudoephedrine ER (CLARITIN-D 24) 10-240 mg Tb24 Take 1 tablet by mouth once daily. fluticasone furoate-vilanterol (BREO ELLIPTA) 50-25 mcg/dose inhaler Inhale 1 Inhalation as instructed once daily. isosorbide mononitrate ER (IMDUR) 30 mg 24 hr tablet Take 0.5 tablets by mouth twice daily. Aspirin (EXTRA STRENGTH GAIL) 500 mg ORAL Tab Take 1,000 mg by mouth twice daily. esomeprazole (NEXIUM) 40 mg ORAL capsule Take 1 capsule by mouth once daily. mometasone (NASONEX) 50 mcg/Actuation NASAL nasal spray Use 2 Sprays in each nostril once daily. fluticasone-salmeterol (ADVAIR DISKUS) 250-50 mcg/dose INHALATION DsDv Inhale 1 Puff as instructed twice daily. rinse and gargle mouth with water after each use No current facility-administered medications on file prior to visit. FAMILY HISTORY Problem Relation Age of Onset other (Other [Other]) Mother age 90 of (?) dementia Heart Father age 70 of MS, first MS age 65 Lipids Brother Alive age 52 Social History Tobacco Use Smoking status: Former Tobacco comments: He msoked 1-2 PPd x 25-30 years, quit 20-25 years ago Substance Use Topics Alcohol use: Yes Comment: He drinks 2 beers daily Drug use: No PHYSICAL EXAMINATION: BP 155/73 (BP Site: Right Arm, BP Position: Sitting, BP Cuff Size: Regular Adult) Pulse 66 Ht 167.6 cm (5' 6 ) Wt 72.6 kg (160 lb) BMI 25.82 kg/m BP w/Orthostatic Vitals Date and Time Orthostatic BP Orthostatic Pulse BP Pulse BP Position BP Site BP Cuff Size 01/23/24 1006 -- -- 158/70 55 -- -- -- General appearance: Well appearing, alert, in no acute distress, well-hydrated, well nourished. and Obese Skin: Skin color, texture, turgor normal, no suspicious rashes or lesions Eyes: Anicteric sclera. Pupils are equally round and reactive to light. Extraocular movements are intact. Neurological Exam Brief Neuropsychiatric Evaluation: Raza Cognitive Assessment (MoCA) Total Score: / Visuospatial/Executive: / Naming: / Attention: / Language: / Abstraction: / Delayed Recall: / Orientation: / Education less than or equal to 12th grade: + No Data Recorded (0-4) minimal depression, (5-9) mild depression, (10-14) moderate depression, (15-19) moderately severe depression, (20-27) severe depression Neurological Exam Mental Status Behavior: Appropriate Facial expression: appropriate Speech/Language: Normal fluency and comprehension in spontaneous speech, impaired repetition on the MMSE Affect: pleasant Thought Process: logical Thought Content: appropriate Insight: poor Knowledge: present and past events -fair Cranial Nerves Extraocular movements normal. No nystagmus, no ptosis, and pupils equal. Face symmetrical. Tongue normal. Motor Examination and Coordination Distance Motor Examination Arms: Well-coordinated symmetrical strong antigravity movements of both arms. No tremor or adventitious movements. No apparent muscle atrophy or deformity/contracture. Legs: Arises easily. No asymmetry of movements. No apparent muscle atrophy or deformity/contracture. Reflexes Not examined, distance exam Sensation Not examined Gait Stands up unaided. Normal stance, stride length, and arm swing. No decompensation in turns. Labs: TSH (mIU/L) Date Value 01/23/2024 1.620 Vitamin B12 (pg/mL) Date Value 01/23/2024 500 Vitamin D 25 Hydroxy (ng/mL) Date Value 04/16/2011 32.4 Imaging: Most recent MRI/CT brain: None MRI Report - Impression Only No resulted procedures found. 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 MRI brain raises suspicion for AD. Cannot rule out LATE as a potential cause as well given his age and memory impairment. MMSE today was 23/30. He would be a candidate for lecanemab but after discussing the risk and commitment and realistic goals, decided to defer on this. Plan noted below. PLAN We prescribed a medication called Namenda. Namenda can help improve the mental state and daily functioning of some people with memory loss. Remember that Namenda does not cure the memory loss. Namenda can be taken with or without food. Start treatment at 5 mg once per day with gradual increase as follows: First week: One tablet (5mg) one in am Second week: One tablet (5mg) in am and 5 mg in pm Third week: One tablet (10mg) in am and 5 mg in pm Forth week and after: One tablet (10mg) twice a day. More common side effects include: Confusion, constipation, hallucinations, headache, high blood pressure, pain, sleepiness. If ay develop or change in intensity of side effect, tell us as soon as possible. Continue donepezil 10 mg at bedtime Cognitively healthy lifestyle. See the section below Ways to keep your brain healthy A heart healthy diet is a brain healthy diet. The MIND Diet is an evidence based diet proven to slow and protect against cognitive decline. See the section MIND Diet Guidelines below for more information. Follow up 6 months with Esme Nuñez spent a total of 49 minutes on the date of service which included preparing to see the patient, [id number] patient care, performing a medically appropriate examination, completing clinical documentation, and on counseling/ eductaing the patient and the family. Preet Lala DO documented in this encounter [facility] 04-30-2024 Nurse Note Derrick Monae is a 88 year old year old man accompanied by: patient. Do you have any changes or new concerns you would like to address at the visit today? Pt in today to get a follow up of mri Vital Signs: BP 155/73 (BP Site: Right Arm, BP Position: Sitting, BP Cuff Size: Regular Adult) Pulse 66 Ht 167.6 cm (5' 6 ) Wt 72.6 kg (160 lb) BMI 25.82 kg/m [facility] 04-30-2024 Nurse Note Derrick Monae is a 88 year old year old man accompanied by: patient. Do you have any changes or new concerns you would like to address at the visit today? Pt in today to get a follow up of mri Vital Signs: BP 155/73 (BP Site: Right Arm, BP Position: Sitting, BP Cuff Size: Regular Adult) Pulse 66 Ht 167.6 cm (5' 6 ) Wt 72.6 kg (160 lb) BMI 25.82 kg/m documented in this encounter [facility] 02-15-2024 History of Present illness Narrative Radiology Service Progress Note PATIENT NAME: Derrick Monae DATE OF SERVICE: February 15, 2024 TIME: 11:55 AM PATIENT IDENTITY VERIFICATION COMPLETED USING TWO (2) IDENTIFIERS: Name and Date of confirmed by identification band and Name and Date of obtained from a relative, guardian or prior caregiver.. FALL SCREENING: Has the patient had 2 falls in the last year or 1 fall with injury or currently using an Ambulatory Assistive Device (Walker, Cane, Wheelchair, Crutches, etc.)? No PATIENT GENDER DATA: Male PATIENT RELEVANT IMPLANT DATA REVIEWED: Yes PATIENT PRESENTS WITH AN IMPLANTABLE OR ATTACHED SHIPBOARD INTELLIGENCE ANALYST: No RADIOLOGY DEPARTMENT: MR; Exam(s) Completed: Head: dementia brain wo PERIPHERAL IV DATA: Not applicable SIGNED BY: KEYONNA Perez) February 15, 2024 11:55 AM documented in this encounter [facility] 02-15-2024 Note HNO ID: [id number] Author: HANK SANTANA RT(R) Service: Radiology Author Type: Technologist Type: Progress Notes Filed: 02/15/2024 12:00 Note Text: Radiology Service Progress Note PATIENT NAME: Derrick Monae DATE OF SERVICE: February 15, 2024 TIME: 11:55 AM PATIENT IDENTITY VERIFICATION COMPLETED USING TWO (2) IDENTIFIERS: Name and Date of confirmed by identification band and Name and Date of obtained from a relative, guardian or prior caregiver.. FALL SCREENING: Has the patient had 2 falls in the last year or 1 fall with injury or currently using an Ambulatory Assistive Device (Walker, Cane, Wheelchair, Crutches, etc.)? No PATIENT GENDER DATA: Male PATIENT RELEVANT IMPLANT DATA REVIEWED: Yes PATIENT PRESENTS WITH AN IMPLANTABLE OR ATTACHED SHIPBOARD INTELLIGENCE ANALYST: No RADIOLOGY DEPARTMENT: MR; Exam(s) Completed: Head: dementia brain wo PERIPHERAL IV DATA: Not applicable SIGNED BY: RT Ana(R) February 15, 2024 11:55 AM [facility] 01-23-2024 Instructions Preet Lala DO - 01/23/2024 11:39 AM EDT Our team had the pleasure of seeing you today at [facility]. We reviewed your evaluation of memory, mood and overall functioning. Our assessment and recommendations are as follows. Brief cognitive testing revealed deficits in forming new memories, visuospatial skills, planning tasks, keeping track of when events have happened, attention, multitasking, and judgment. We discussed the outcome of our testing which showed there is some cognitive impairment that is severe enough to interfere with daily functioning. This is known as dementia. Dementia is not a disease itself but a group of symptoms which may accompany certain diseases. The most common form of dementia is Alzheimer's disease. The second most common cause is vascular dementia. There are many other causes of dementia such as: thyroid problems, vitamin deficiency which may be reversed. For completion of our work up, we ordered an MRI of the brain along with B12, TSH blood work to better understand the diagnosis and determine the treatment. We prefer patients have this done either in at [facility] or [facility] [place] at the [facility]. To schedule at either location call: . Medications: Start donepezil 5 mg daily (1/2 tab) for one month then increase to 10 mg daily after that. We would like you to return to [facility] for a follow up visit roughly 3 months or after MRI brain scan. Sincerely, documented in this encounter [facility] 01-23-2024 Note HNO ID: [id number] Author: PREET LALA DO Service: ? Author Type: Physician Type: Progress Notes Filed: 01/23/2024 13:22 Note Text: Reason for Referral: Cognitive changes and Memory loss I had the pleasure of seeing this 88 year old year old male at the [facility]. The patient is referred by SELF Patient is accompanied by and information obtained from Spouse and Son and available records in the system. Background and History of Present Illness: Symptoms Cognition Memory problems include short-term memory impairment, rapid forgetting, repeating statements and questions and forgetting events. He gets lost driving. There is impaired reasoning and impaired judgment. There are episodes of confusion. In daily life, he needs assistance with instrumental ADL?s. Behavior Mood is described as normal ( notes he is depressed but patient denies). He is sleeping more. Behavioral aberrations: Psychosis: Denies hallucinations or delusions. Onset and Progression: Started several months ago. First time they noticed something was off was in September. He got really confused at a [employer]. He had no idea where they were. Another time at a graduation green party he thought they already went there. Has always been really good with directions. Has been having more problems now. About 1.5 months ago they drove to a location they had been several times and he did not know where they were. notes that they tell him something one day and the next day or even the same day he does not remember it at all. He is always with his when driving. There is concern that he would get lost. He has significant hearing problems. Feels like this has been gradually getting worse as well. 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 There was concerns with his job and they told him to stop driving about a year ago. It is unclear what the reasons were for. There were jobs that took longer than it should have. Now his has to set up his medications and even when she does this he often forgets to take them. Sometimes he uses his card at the bank and it says insufficient funds . took away his credit card because he was not paying back his card. She says he did not realize when you use a credit card you have to pay it back. This was about a month ago. He can't hear out of phone very well so does not use this much. writes everything down as far shopping otherwise he would not be able to keep track and shop for his needs. They were in his truck the other day and he could not figure out how to turn his air conditioner on. They had to get the owners eduard out to figure this out for him. 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 Mental Health: Patient denies any depression or anxiety but says she thinks he is depressed because he cannot do things like he used to. Sleep: He is sleeping too much, sometimes till 1pm. Have you ever been told, or suspected yourself, that you seem to ?act out your dreams? while asleep (for example, punching, flailing your arms in the air, making running movements, etc.)?? No 5. Activities of Daily Living Clif[place] Index of Walsh in Activities of Daily Living (A.D.L.) Bathing: Bathes self completely or needs help in bathing only a single part of the body such as the back, genital area or disabled extremity. (1 POINT) Dressing: Get clothes from closets and drawers and puts on clothes and outer garments complete with fasteners. May have help tying shoes. (1 POINT) Toileting: Goes to toilet, gets on and off, arranges clothes, cleans genital area without help. (1 POINT) Transferring: Moves in and out of bed or chair unassisted. Mechanical transfer aids are acceptable. (1 POINT) Continence: Exercises complete self-control over urination and defecation. (1 POINT) Feeding: Gets food from plate into mouth without help. Preparation of food may be done by another person. (1 POINT) -Score: 6 (higher is more independent, 0-7) No data to display Previous and Current treatment: none Has a CT scan or MRI of the brain been done? 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 Education level: few semesters at [employer] Alcohol: He says he drinks 2 beers per day and is concerned he drinks much more than this. Goes through about 24 beers per week. Tobacco: Former smoker many years ago. About 30-40 pack years Illicit drugs: Denies PAST MEDICAL HISTORY Diagnosis Date CAD (coronary artery disease) COPD (chronic obstructive pulmonary disease) (HCC) GERD (gastroesophageal reflux disease) ALLERGIES Allergen Reactions Eggs [Other] Swelling Pineapple Other: See Comments Tickle in back of throat Sulfa (Sulfonamide * hives + SOB Current Outpatient Med (more content not included)... [facility] 01-23-2024 History of Present illness Narrative Images from the original note were not included. Reason for Referral: Cognitive changes and Memory loss I had the pleasure of seeing this 88 year old year old male at the [facility]. The patient is referred by SELF Patient is accompanied by and information obtained from Spouse and Son and available records in the system. Background and History of Present Illness: Symptoms Cognition Memory problems include short-term memory impairment, rapid forgetting, repeating statements and questions and forgetting events. He gets lost driving. There is impaired reasoning and impaired judgment. There are episodes of confusion. In daily life, he needs assistance with instrumental ADL s. Behavior Mood is described as normal ( notes he is depressed but patient denies). He is sleeping more. Behavioral aberrations: Psychosis: Denies hallucinations or delusions. Onset and Progression: Started several months ago. First time they noticed something was off was in September. He got really confused at a [employer] tournament. He had no idea where they were. Another time at a graduation green party he thought they already went there. Has always been really good with directions. Has been having more problems now. About 1.5 months ago they drove to a location they had been several times and he did not know where they were. notes that they tell him something one day and the next day or even the same day he does not remember it at all. He is always with his when driving. There is concern that he would get lost. He has significant hearing problems. Feels like this has been gradually getting worse as well. 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 There was concerns with his job and they told him to stop driving about a year ago. It is unclear what the reasons were for. There were jobs that took longer than it should have. Now his has to set up his medications and even when she does this he often forgets to take them. Sometimes he uses his card at the bank and it says insufficient funds . took away his credit card because he was not paying back his card. She says he did not realize when you use a credit card you have to pay it back. This was about a month ago. He can't hear out of phone very well so does not use this much. writes everything down as far shopping otherwise he would not be able to keep track and shop for his needs. They were in his truck the other day and he could not figure out how to turn his air conditioner on. They had to get the owners eduard out to figure this out for him. 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 Mental Health: Patient denies any depression or anxiety but says she thinks he is depressed because he cannot do things like he used to. Sleep: He is sleeping too much, sometimes till 1pm. Have you ever been told, or suspected yourself, that you seem to act out your dreams while asleep (for example, punching, flailing your arms in the air, making running movements, etc.)? No 5. Activities of Daily Living Clif[place] Index of Walsh in Activities of Daily Living (A.D.L.) Bathing: Bathes self completely or needs help in bathing only a single part of the body such as the back, genital area or disabled extremity. (1 POINT) Dressing: Get clothes from closets and drawers and puts on clothes and outer garments complete with fasteners. May have help tying shoes. (1 POINT) Toileting: Goes to toilet, gets on and off, arranges clothes, cleans genital area without help. (1 POINT) Transferring: Moves in and out of bed or chair unassisted. Mechanical transfer aids are acceptable. (1 POINT) Continence: Exercises complete self-control over urination and defecation. (1 POINT) Feeding: Gets food from plate into mouth without help. Preparation of food may be done by another person. (1 POINT) -Score: 6 (higher is more independent, 0-7) No data to display Previous and Current treatment: none Has a CT scan or MRI of the brain been done? 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 Education level: few semesters at [employer] Alcohol: He says he drinks 2 beers per day and is concerned he drinks much more than this. Goes through about 24 beers per week. Tobacco: Former smoker many years ago. About 30-40 pack years Illicit drugs: Denies PAST MEDICAL HISTORY Diagnosis Date CAD (coronary artery disease) COPD (chronic obstructive pulmonary disease) (HCC) GERD (gastroesophageal reflux disease) ALLERGIES Allergen Reactions Eggs [Other] Swelling Pineapple Other: See Comments Tickle in back of throat Sulfa (Sulfonamide * hives + SOB Current Outpatient Medications on File Prior to Visit Medication Sig albuterol HFA (PROVENTIL HFA, VENTOLIN HFA) 90 mcg/actuation inhaler Inhale 2 Puffs as instructed every 4 hours as needed. fluticasone (FLONASE) 50 mcg/actuation nasal spray Use 1 Bartlett in the nose once daily. loratadine-pseudoephedrine ER (CLARITIN-D 24) 10-240 mg Tb24 Take 1 tablet by mouth once daily. fluticasone furoate-vilanterol (BREO ELLIPTA) 50-25 mcg/dose inhaler Inhale 1 Inhalation as instructed once daily. isosorbide mononitrate ER (IMDUR) 30 mg 24 hr tablet Take 0.5 tablets by mouth twice daily. Aspirin (EXTRA STRENGTH GAIL) 500 mg ORAL Tab Take 1,000 mg by mouth twice daily. esomeprazole (NEXIUM) 40 mg ORAL capsule Take 1 capsule by mouth once daily. mometasone (NASONEX) 50 mcg/Actuation NASAL nasal spray Use 2 Sprays in each nostril once daily. fluticasone-salmeterol (ADVAIR DISKUS) 250-50 mcg/dose INHALATION DsDv Inhale 1 Puff as instructed twice daily. rinse and gargle mouth with water after each use No current facility-administered medications on file prior to visit. FAMILY HISTORY Problem Relation Age of Onset other (Other [Other]) Mother age 90 of (?) dementia Heart Father age 70 of MS, first MS age 65 Lipids Brother Alive age 52 Social History Tobacco Use Smoking status: Former Tobacco comments: He msoked 1-2 PPd x 25-30 years, quit 20-25 years ago Substance Use Topics Alcohol use: Yes Comment: He drinks 2 beers daily Drug use: No PHYSICAL EXAMINATION: BP 158/70 Pulse (!) 55 Wt 72.6 kg (160 lb 1.6 oz) BMI 25.84 kg/m BP w/Orthostatic Vitals Date and Time Orthostatic BP Orthostatic Pulse BP Pulse BP Position BP Site BP Cuff Size 01/23/24 1006 -- -- 158/70 55 -- -- -- General appearance: Well appearing, alert, in no acute distress, well-hydrated, well nourished. and Obese Skin: Skin color, texture, turgor normal, no suspicious rashes or lesions Eyes: Anicteric sclera. Pupils are equally round and reactive to light. Extraocular movements are intact. Neurological Exam Brief Neuropsychiatric Evaluation: Raza Cognitive Assessment (MoCA) Version 1 Total Score: Visuospatial/Executive: 25 Namin/3 Attention: 4/6 Language: 0/3 Abstraction: 0/2 Delayed Recall: 0/5 Orientation: 5/6 Education less than or equal to 12th grade: + No Data Recorded (0-4) minimal depression, (5-9) mild depression, (10-14) moderate depression, (15-19) moderately severe depression, (20-27) severe depression Neurological Exam Mental Status Behavior: Agitated at times when discussing history, otherwise appropriate Facial expression: appropriate Speech/Language: unremarkable -can name, repeat with no dysarthria Affect: pleasant Thought Process: logical Thought Content: appropriate Insight: good Knowledge: present events -poor and past events -fair Cranial Nerves Visual javier intact. Pupils reactive. Extraocular movements conjugate and full. No ptosis. No nystagmus. Facial sensation intact. Face symmetric and strong. Palate and tongue normal. XI normal. Motor Examination and Coordination Distance Motor Examination Arms: Well-coordinated symmetrical strong antigravity movements of both arms. Raises arms well above head. Manipulates phone and small objects well. No drift. Rapid alternating movements are symmetrical and normal. Mild postural tremor in B/L UE No dysmetria on finger-nose testing. No apparent muscle atrophy or deformity/contracture. Legs: Arises easily. Can rise on heels and toes. Wiggles toes well. No asymmetry of movements. No apparent dysmetria. No apparent muscle atrophy or deformity/contracture. Reflexes Deep tendon reflexes graded by MRC Deep Tendon Reflexes Right Left Biceps 2 2 Brachioradialis 2 2 Patellar 2 2 Sensation Sensation intact to light touch in B/L UE and LE Gait Casual gait normal. Normal arm swing, no decompensation in turns Labs: Vitamin D 25 Hydroxy (ng/mL) Date Value 04/16/2011 32.4 Imaging: Most recent MRI/CT brain: None MRI Report - Impression Only No resulted procedures found. Assessment and Recommendation: This is a 88 year old male with hx of CAD, COPD, severe hearing loss with hearing aids who presented with progressive decline in function and memory. He has significant hearing loss but despite this can understand much of the visit when spoken loudly. We were able to get through a MOCA and although some questions may be affected by his hearing, he demonstrated ability to clearly hear instructions but struggled. He got 13/30 with a pattern typical for AD, deficits in executive function, visuospatial function, memory, repetition, and abstraction. He has mild dementia and may be a candidate for lecanemab, however, worried about his low MOCA score and we discussed this today. Next visit after his MRI scan we can consider MMSE. Would not recommend lecanemab if MMSE is lower than 22. Did not have time to discuss alcohol and effect on cognition. PLAN -Start donepezil 5 mg daily for one month followed by 10 mg daily after that -MRI brain -Labs: B12, TSH, B1 -RTC in 3 months after MRI and lab workup -Provided reading materials on disease and the expected disease course I spent a total of 93 minutes on the date of service which included preparing to see the patient, [id number] patient care, performing a medically appropriate examination, completing clinical documentation, and on counseling/ eductaing the patient and the family. Preet Lala DO documented in this encounter [facility] 01-23-2024 Nurse Note Derrick Monae is a 88 year old year old right handed man Accompanied by: spouse and son. 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 Patient is [place] he don't know why he here. His made the appointment she stated he is forgetful. Vital Signs: BP 158/70 Pulse (!) 55 Wt 72.6 kg (160 lb 1.6 oz) BMI 25.84 kg/m [facility] 01-23-2024 Nurse Note Derrick Monae is a 88 year old year old right handed man Accompanied by: spouse and son. 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 Patient is [place] he don't know why he here. His made the appointment she stated he is forgetful. Vital Signs: BP 158/70 Pulse (!) 55 Wt 72.6 kg (160 lb 1.6 oz) BMI 25.84 kg/m documented in this encounter [facility] Evaluation note Diagnosis Mild late onset Alzheimer's dementia without behavioral disturbance, psychotic disturbance, mood disturbance, or anxiety (HCC)- Primary [facility] Diagnosis Mild late onset Alzheimer's dementia without behavioral disturbance, psychotic disturbance, mood disturbance, or anxiety (HCC) [facility] Diagnosis Mild late onset Alzheimer's dementia without behavioral disturbance, psychotic disturbance, mood disturbance, or anxiety (HCC)- Primary documented in this encounter [facility] Summary Purpose Family History No Family History Records FoundNo Family History Records FoundNo Family History Records Found Advance Directives No Advanced Directives Records FoundNo Advanced Directives Records FoundNo Advanced Directives Records Found Reason for Referral Specialty Diagnoses / Procedures Referred By Contac t Referred To Contact MR IMAGING Diagnoses Mild late onset Alzheimer's dementia without behavioral disturbance, psychotic disturbance, mood disturbance, or anxiety (HCC) Procedures MRI 3D POST PROCESSING 3D RENDERING W/INTERP&POSTPROC DIFF WORK STATION her Preet [address] [place] [address] [facility] [place] [address] Referral ID Status Reason Start Date Expiration Date Visits Requested Visits Authorized [id number] Pending Review Auto-Generat ed Referral 01/23/2024 02/21/2025 1 1 Specialty Diagnoses / Procedures Referred By Contac t Referred To Contact MR IMAGING Diagnoses Mild late onset Alzheimer's dementia without behavioral disturbance, psychotic disturbance, mood disturbance, or anxiety (HCC) Procedures MRI BRAIN W QUANT WO IVCON MRI BRAIN BRAIN STEM W/O CONTRAST MATERIAL Preet Lala DO [address] [place], [place] [id number] [facility] [place] [address] Referral ID Status Reason Start Date Expiration Date Visits Requested Visits Authorized [id number] Authorized Auto-Generat ed Referral 01/23/2024 02/21/2025 1 1 Referral ID Status Reason Start Date Expiration Date V isits Requested Visits Authorized [id number] Closed Auto-Generate d Referral 01/30/2024 07/13/2024 1 1 Referral ID Status Reason Start Date Expiration Date V isits Requested Visits Authorized [id number] Closed Auto-Generate d Referral 01/23/2024 02/21/2025 1 1 Additional Source Comments (unrecognized sect ion and content) No Status Records FoundNo Status Records FoundNo Status Records Found INFORMATION SOURCE (unrecogn ized section and content) DATE CREATED AUTHOR 10/02/2021 [facility] DATE CREATED AUTHOR AUTHOR'S ORGANIZ ATION 12/31/2023 [facility] EPIC DATE CREATED AUTHOR AUTHOR'S ORGANIZ ATION 05/03/2024 [facility] Source Comments (unrecognize d section and content) In the event this informatio n is protected by the Federal Confidentiality of Alcohol and Drug Abuse Patient Records regulations: The Federal rules restrict any use of the information to criminally investigate or prosecute any alcohol or drug abuse patient.[facility] the event this information is protected by the Federal Confidentiality of Alcohol and Drug Abuse Patient Records regulations: The Federal rules restrict any use of the information to criminally investigate or prosecute any alcohol or drug abuse patient.[facility] the event this information is protected by the Federal Confidentiality of Alcohol and Drug Abuse Patient Records regulations: The Federal rules restrict any use of the information to criminally investigate or prosecute any alcohol or drug abuse patient.[facility] Reason for Visit (unrecogniz ed section and content) Reason Comments New Patient Reason Comments Radiology MRI Specialty Diagnoses / Procedures Referred By Nakul t Referred To Contact MR IMAGING Diagnoses Mild late onset Alzheimer's dementia without behavioral disturbance, psychotic disturbance, mood disturbance, or anxiety (HCC) Procedures MRI 3D POST PROCESSING 3D RENDERING W/INTERP&POSTPROC DIFF WORK STATION Preet Lala DO [address] [address] [place] [address] Referral ID Status Reason Start Date Expiration Date V isits Requested Visits Authorized [id number] Closed Auto-Generate d Referral 01/30/2024 07/13/2024 1 1 Reason Comments Established Patient Follow-Up OFFICE VIS IT FOR RECORDS PERTAINING TO PATIENTS WHO ARE [...] BE BASED ON THE PRIMARY CLINICAL RECORDS. [facility] [employer], [facility]. provides no warranty or guarantee of the accuracy or completeness of information in this document.
--- NOTE | 2024-05-04 17:48 | CT_ITS ---
[address] [address] Patient Name: DERRICK MONAE MRN: [id number] date: 1935 Sex: M Assigned Patient Location: Current Patient Location: .[facility] Accession/Order Number: [id number] Exam Date: 05/04/2024 18:05 Report Date: 05/04/2024 19:04 At the request of: SUN HODGES Procedure: CT head/brain wo con EXAMINATION: CT head/brain wo con, CT cervical spine wo con HISTORY: fall COMPARISON: None. TECHNIQUE: CT head without contrast. CT cervical spine without contrast. Dose reduction techniques were achieved by using: automated exposure control and/or adjustment of mA and /or kV according to patient size and/or use of iterative reconstruction technique. FINDINGS: Head CT: Negative for acute hemorrhage. Old infarct posterior right castro radiata. Mild cerebral atrophy. No hydrocephalus. No midline shift, mass effect, pathologic extra-axial fluid collections. CT cervical spine: Straightening of the cervical spine. Grade 1 anterolisthesis at C3-C4 and at C5-C6. No acute fracture. This is secondary to degenerative facet arthropathy. Multilevel degenerative disc disease and facet arthropathy. There are varying degrees of disc height loss, osteophytes, and facet arthropathy. Prevertebral soft tissues normal in thickness. No levels of high-grade spinal canal stenosis. Degenerative facet arthropathy and uncovertebral osteophytes result in a few levels of foraminal stenosis, most prominent at the left C2-C3, right C3-C4, bilateral C4-C5, right C5-C6, right C6-C7 levels. No airspace infiltrates in the included lung apices. CT/CT head/brain wo con IMPRESSION: 1. Negative for acute intracranial hemorrhage or acute intracranial process. 2. 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 3. Negative for acute fracture or dislocation in the cervical spine. Electronically authenticated by: NEEMA MARISCAL Date: 05/04/2024 19:04
--- NOTE | 2024-05-04 17:49 | ECG_ITS ---
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
[2024-05-04 17:58] VITALS: PULSE 82
[2024-05-04 18:00] VITALS: PULSE 81
--- NOTE | 2024-05-04 18:03 | ED.GENADUL1 ---
HPI HPI - General Adult General Chief complaint: Weakness Stated complaint: UTI Time Seen by Provider: 05/04/24 17:37 Source: patient and family Mode of arrival: walk-in Limitations: no limitations History of Present Illness HPI narrative: 88-year-old male with history of Alzheimer's brought to us by his family members because he has been falling a lot for the last 3 days, patient denies any complaint himself he denies also hitting his head but according to the and the son at the bedside he did not used to use walker before and now he is using a walker Apparently they called [facility] where he was diagnosed with Alzheimer and they told him he might have a UTI and they brought him over here for evaluation The patient at the moment denies any headache nausea vomiting or any pain, according to the he has not been hydrating enough Related Data Home Medications ?Medication ?Instructions ?Recorded ?Confirmed aspirin 81 mg tablet,delayed 81 mg PO DAILY 03/02/23 05/04/24 release (Adult Aspirin Regimen) donepezil 10 mg tablet 10 mg PO BEDTIME 05/04/24 05/04/24 memantine 10 mg tablet 10 mg PO BID 05/04/24 05/04/24 Previous Rx's ?Medication ?Instructions ?Recorded albuterol sulfate 90 mcg/actuation 2 inh inhalation Q4H PRN shortness 03/02/23 aerosol inhaler of breath or wheezing #8.5 grams Allergies Allergy/AdvReac Type Severity Reaction Status Date / Time Sulfa (Sulfonamide Allergy Mild Verified 03/02/23 20:30 Antibiotics) eggs Allergy Mild Uncoded 03/02/23 20:30 Opioid HPI Opioid Management Most Recent Opioid Data: Last Pain Scale 0 05/04/24 17:46 05/04/24 Review of Systems ROS Status of ROS 10 or more systems reviewed and unremarkable except as noted in history and below Exam Narrative Exam Narrative: Nurses notes and vital signs reviewed and patient is not hypoxic. General: Well-appearing and in no apparent distress. Skin: Warm, dry, no pallor noted. No rash. Head: Normocephalic, atraumatic. Neck: Supple, non-tender. Eye: Pupils are equal, round and EOMI. No scleral icterus. Ears, Nose, Mouth, and Throat: TM are clear, no nasal mucosal hypertrophy. Oral mucosa is moist, no posterior oropharynx erythema, uvula is mid-line Cardiovascular: Regular Rate and Rhythm without murmur, gallop or rub. Respiratory: No accessory muscle use or respiratory distress. Lungs are clear to auscultation, no wheezing, rales or rhonchi Chest Wall: no tenderness Back: No midline thoracic or lumbar vertebral tenderness. No CVA tenderness Musculoskeletal: normal ROM, no calf or popliteal tenderness, no lower extremity edema/swelling GI: Abdomen is soft, non-distended. Normal bowel sounds. No masses appreciated. No tenderness to palpation. No rebound, guarding, or rigidity noted. Neurological: A&O x1. No cranial nerve dysfunction observed. Moves all extremities. Sensation intact. Psychiatric: Cooperative and interactive. Normal mood and affect. Constitutional Vital Signs, click to edit/add: Last Vital Signs Temp 98.7 F 05/04/24 17:29 Pulse 92 H 05/04/24 18:17 Resp 23 H 05/04/24 18:17 BP 170/84 H 05/04/24 17:29 Pulse Ox 96 05/04/24 17:29 O2 Del Method Room Air 05/04/24 17:29 Course Vital Signs Vital signs: Vital Signs Temperature 98.7 F 05/04/24 17:29 Pulse Rate 95 H 05/04/24 17:29 Respiratory Rate 20 05/04/24 17:29 Blood Pressure 170/84 H 05/04/24 17:29 Pulse Oximetry 96 05/04/24 17:29 Oxygen Delivery Method Room Air 05/04/24 17:29 Temperature 98.7 F 05/04/24 17:29 Pulse Rate 92 H 05/04/24 18:17 Respiratory Rate 23 H 05/04/24 18:17 Blood Pressure 170/84 H 05/04/24 17:29 Pulse Oximetry 96 05/04/24 17:29 Oxygen Delivery Method Room Air 05/04/24 17:29 Medical Decision Making MDM Narrative Medical decision making narrative: The patient EKG showing sinus rhythm with a heart rate of [address] elevation or depression Lab Data Labs: Lab Results 05/04/24 Range/Units 18:00 WBC 6.9 (4.0-11.0) 10^3/uL RBC 4.73 (4.70-6.10) 10^6/uL Hgb 14.8 (14.0-18.0) g/dL Hct 44.0 (42.0-54.0) % MCV 93.0 (80.0-94.0) fL MCH 31.3 (25.9-34.0) pg MCHC 33.6 (29.9-35.2) g/dL RDW 13.5 (11.0-15.0) % Plt Count 221 (150-450) 10^3/uL MPV 9.6 (9.5-13.5) fL Neut % (Auto) 72.7 (43.0-75.0) % Lymph % (Auto) 12.3 L (20.5-60.0) % Whiteside % (Auto) 10.7 (1.7-12.0) % Eos % (Auto) 3.0 (0.9-7.0) % Baso % (Auto) 1.2 (0.2-2.0) % Neut # (Auto) 5.0 (1.4-6.5) 10^3/uL Lymph # (Auto) 0.9 L (1.2-3.8) 10^3/uL Whiteside # (Auto) 0.7 (0.3-0.8) 10^3/uL Eos # (Auto) 0.2 (0.0-0.7) 10^3/uL Baso # (Auto) 0.1 (0.0-0.1) 10^3/uL Abs Immat Gran (auto) 0.01 (0.00-0.03) 10^3/uL Imm/Tot Granulo (auto) 0.1 (0.0-0.5) % Sodium 143 (136-145) mmol/L Potassium 4.1 (3.5-5.1) mmol/L Chloride 107 (98-107) mmol/L Carbon Dioxide 26.7 (21.0-32.0) mmol/L Anion Gap 13.4 BUN 18.0 (7.0-18.0) mg/dL Creatinine 1.12 (0.70-1.30) mg/dL Est GFR ( Amer) >60 (>=60 mL/min/1.73m^2) Est GFR (Non-Af Amer) >60 (>=60 mL/min/1.73m^2) BUN/Creatinine Ratio 16.1 Glucose 92 (74-106) mg/dL Calcium 8.7 (8.5-10.1) mg/dL Magnesium 2.3 (1.8-2.4) mg/dL Total Bilirubin 0.6 (0.2-1.0) mg/dL AST 18 (15-37) U/L ALT 24 (16-63) U/L Alkaline Phosphatase 129 H (46-116) U/L Troponin I High Sens 6.1 (4.0-76.1) pg/mL Total Protein 6.7 (6.4-8.2) g/dL Albumin 3.4 (3.4-5.0) g/dL Globulin 3.3 g/dL Albumin/Globulin Ratio 1.0 Discharge Plan Discharge Patient Disposition: Still a Patient
[2024-05-04 18:07] LABS: Basophils Absolute Auto 0.1 10^3/uL (0.0-0.1); Basophils Percent Auto 1.2 % (0.2-2.0); Eosinophils Absolute Auto 0.2 10^3/uL (0.0-0.7); Hemoglobin 14.8 g/dL (14.0-18.0); Immature Granulocytes Abs Auto 0.01 10^3/uL (0.00-0.03); Immature Granulocytes Pct Auto 0.1 % (0.0-0.5); Lymphocytes Absolute Auto 0.9 10^3/uL (1.2-3.8); Lymphocytes Percent Auto 12.3 % (20.5-60.0); Mean Corpuscular HGB Conc 33.6 g/dL (29.9-35.2); Mean Corpuscular Hemoglobin 31.3 pg (25.9-34.0); Mean Platelet Volume 9.6 fL (9.5-13.5); Monocytes Absolute Auto 0.7 10^3/uL (0.3-0.8); Monocytes Percent Auto 10.7 % (1.7-12.0); Neutrophils Percent Auto 72.7 % (43.0-75.0); Platelet Count 221 10^3/uL (150-450); Red Blood Count 4.73 10^6/uL (4.70-6.10); Red Cell Distribution Width 13.5 % (11.0-15.0); White Blood Count 6.9 10^3/uL (4.0-11.0)
--- NOTE | 2024-05-04 18:15 | CT_ITS ---
[address] [address] Patient Name: DERRICK MONAE MRN: [id number] date: 1935 Sex: M Assigned Patient Location: ER Current Patient Location: .[facility] Accession/Order Number: [id number] Exam Date: 05/04/2024 18:05 Report Date: 05/04/2024 19:04 At the request of: SUN HODGES Procedure: CT cervical spine wo con EXAMINATION: CT head/brain wo con, CT cervical spine wo con HISTORY: fall COMPARISON: None. TECHNIQUE: CT head without contrast. CT cervical spine without contrast. Dose reduction techniques were achieved by using: automated exposure control and/or adjustment of mA and /or kV according to patient size and/or use of iterative reconstruction technique. FINDINGS: Head CT: Negative for acute hemorrhage. Old infarct posterior right castro radiata. Mild cerebral atrophy. No hydrocephalus. No midline shift, mass effect, pathologic extra-axial fluid collections. CT cervical spine: Straightening of the cervical spine. Grade 1 anterolisthesis at C3-C4 and at C5-C6. No acute fracture. This is secondary to degenerative facet arthropathy. Multilevel degenerative disc disease and facet arthropathy. There are varying degrees of disc height loss, osteophytes, and facet arthropathy. Prevertebral soft tissues normal in thickness. No levels of high-grade spinal canal stenosis. Degenerative facet arthropathy and uncovertebral osteophytes result in a few levels of foraminal stenosis, most prominent at the left C2-C3, right C3-C4, bilateral C4-C5, right C5-C6, right C6-C7 levels. No airspace infiltrates in the included lung apices. CT/CT cervical spine wo con IMPRESSION: 1. Negative for acute intracranial hemorrhage or acute intracranial process. 2. 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 3. Negative for acute fracture or dislocation in the cervical spine. Electronically authenticated by: NEEMA MARISCAL Date: 05/04/2024 19:04
[2024-05-04 18:17] VITALS: PULSE 92
[2024-05-04 18:27] LABS: Magnesium 2.3 mg/dL (1.8-2.4); Troponin I High Sensitivity 6.1 pg/mL (4.0-76.1)
[2024-05-04 18:29] LABS: Alanine Aminotransferase 24 U/L (16-63); Albumin Level 3.4 g/dL (3.4-5.0); Alkaline Phosphatase 129 U/L (46-116); Anion Gap 13.4; Aspartate Amino Transferase 18 U/L (15-37); BUN Creatinine Ratio 16.1; Bilirubin Total 0.6 mg/dL (0.2-1.0); Calcium 8.7 mg/dL (8.5-10.1); Carbon Dioxide 26.7 mmol/L (21.0-32.0); Chloride 107 mmol/L (98-107); Estimated GFR (African America >60 (>=60 mL/min/1.73m^2); Estimated GFR (Non-African Ame >60 (>=60 mL/min/1.73m^2); Globulin 3.3 g/dL; Glucose 92 mg/dL (74-106); Potassium 4.1 mmol/L (3.5-5.1); Sodium 143 mmol/L (136-145); Total Protein 6.7 g/dL (6.4-8.2)
[2024-05-04 19:03] VITALS: BP 157/74; PULSE 76; O2SAT 98
[2024-05-04 19:42] LABS: Bilirubin Urine NEGATIVE (NEGATIVE); Blood Urine TRACE-L (NEGATIVE); Clarity Urine CLEAR (CLEAR); Color Urine YELLOW (YELLOW); Glucose Urine UA NEGATIVE (NEGATIVE); Ketones Urine 15 mg/dL (NEGATIVE); Leukocyte Esterase Urine NEGATIVE (NEGATIVE); Nitrite Urine NEGATIVE (NEGATIVE); Protein Urine NEGATIVE (NEG/TRACE); Specific Gravity Urine >=1.030 (1.005-1.025); Urobilinogen Urine 0.2 EU/dL (0.2-1.0)
[2024-05-04 19:43] LABS: Urine Microscopic Indicated YES
[2024-05-04 20:03] LABS: WBC Urine 0-2 #/HPF (NONE SEEN)
[2024-05-04 20:04] LABS: Bacteria Urine TRACE #/HPF (NONE SEEN); Cast Seen? NONE SEEN #/LPF (NONE SEEN); Crystals Seen? None Seen #/HPF (None Seen); Mucus Urine TRACE (NONE SEEN); Squamous Epithelial Cell Urine RARE #/LPF (NONE/RARE); Urine Culture Indicated NO
--- NOTE | 2024-05-04 20:17 | ED.GENADUL1 ---
HPI HPI - General Adult General Chief complaint: Weakness Stated complaint: UTI Time Seen by Provider: 05/04/24 17:37 Source: patient and family Mode of arrival: walk-in Limitations: no limitations History of Present Illness HPI narrative: 88-year-old male presented to the emergency department and was initially seen by Dr. Murray. Please see her full history and physical exam. The patient was signed out to me after discussing the case with her thoroughly. Related Data Home Medications ?Medication ?Instructions ?Recorded ?Confirmed aspirin 81 mg tablet,delayed 81 mg PO DAILY 03/02/23 05/04/24 release (Adult Aspirin Regimen) donepezil 10 mg tablet 10 mg PO BEDTIME 05/04/24 05/04/24 memantine 10 mg tablet 10 mg PO BID 05/04/24 05/04/24 Previous Rx's ?Medication ?Instructions ?Recorded albuterol sulfate 90 mcg/actuation 2 inh inhalation Q4H PRN shortness 03/02/23 aerosol inhaler of breath or wheezing #8.5 grams Allergies Allergy/AdvReac Type Severity Reaction Status Date / Time Sulfa (Sulfonamide Allergy Mild Verified 03/02/23 20:30 Antibiotics) eggs Allergy Mild Uncoded 03/02/23 20:30 Opioid HPI Opioid Management Most Recent Opioid Data: Last Pain Scale 0 05/04/24 17:46 05/04/24 Exam Constitutional Vital Signs, click to edit/add: Last Vital Signs Temp 98.7 F 05/04/24 17:29 Pulse 76 05/04/24 19:03 Resp 16 05/04/24 19:03 BP 157/74 H 05/04/24 19:03 Pulse Ox 98 05/04/24 19:03 O2 Del Method Room Air 05/04/24 17:29 Course Vital Signs Vital signs: Vital Signs Temperature 98.7 F 05/04/24 17:29 Pulse Rate 95 H 05/04/24 17:29 Respiratory Rate 20 05/04/24 17:29 Blood Pressure 170/84 H 05/04/24 17:29 Pulse Oximetry 96 05/04/24 17:29 Oxygen Delivery Method Room Air 05/04/24 17:29 Temperature 98.7 F 05/04/24 17:29 Pulse Rate 76 05/04/24 19:03 Respiratory Rate 16 05/04/24 19:03 Blood Pressure 157/74 H 05/04/24 19:03 Pulse Oximetry 98 05/04/24 19:03 Oxygen Delivery Method Room Air 05/04/24 17:29 Medical Decision Making MDM Narrative Medical decision making narrative: All radiographs are negative. No evidence of UTI and blood work is negative as well. I discussed the findings with the patient's and the patient and suggested that the patient be admitted to the hospital and offered admission. The does not think it is necessary and she is comfortable taking him home. She will follow-up with PCP. Differential Diagnosis Differential Diagnosis: Fracture, contusions, generalized weakness Lab Data Lab results reviewed: Yes I reviewed the patient's lab results Labs: Lab Results 05/04/24 05/04/24 Range/Units 17:49 18:00 WBC 6.9 (4.0-11.0) 10^3/uL RBC 4.73 (4.70-6.10) 10^6/uL Hgb 14.8 (14.0-18.0) g/dL Hct 44.0 (42.0-54.0) % MCV 93.0 (80.0-94.0) fL MCH 31.3 (25.9-34.0) pg MCHC 33.6 (29.9-35.2) g/dL RDW 13.5 (11.0-15.0) % Plt Count 221 (150-450) 10^3/uL MPV 9.6 (9.5-13.5) fL Neut % (Auto) 72.7 (43.0-75.0) % Lymph % (Auto) 12.3 L (20.5-60.0) % [place] % (Auto) 10.7 (1.7-12.0) % Eos % (Auto) 3.0 (0.9-7.0) % Baso % (Auto) 1.2 (0.2-2.0) % Neut # (Auto) 5.0 (1.4-6.5) 10^3/uL Lymph # (Auto) 0.9 L (1.2-3.8) 10^3/uL [place] # (Auto) 0.7 (0.3-0.8) 10^3/uL Eos # (Auto) 0.2 (0.0-0.7) 10^3/uL Baso # (Auto) 0.1 (0.0-0.1) 10^3/uL Abs Immat Gran (auto) 0.01 (0.00-0.03) 10^3/uL Imm/Tot Granulo (auto) 0.1 (0.0-0.5) % Sodium 143 (136-145) mmol/L Potassium 4.1 (3.5-5.1) mmol/L Chloride 107 (98-107) mmol/L Carbon Dioxide 26.7 (21.0-32.0) mmol/L Anion Gap 13.4 BUN 18.0 (7.0-18.0) mg/dL Creatinine 1.12 (0.70-1.30) mg/dL Est GFR ( Amer) >60 (>=60 mL/min/1.73m^2) Est GFR (Non-Af Amer) >60 (>=60 mL/min/1.73m^2) BUN/Creatinine Ratio 16.1 Glucose 92 (74-106) mg/dL Calcium 8.7 (8.5-10.1) mg/dL Magnesium 2.3 (1.8-2.4) mg/dL Total Bilirubin 0.6 (0.2-1.0) mg/dL AST 18 (15-37) U/L ALT 24 (16-63) U/L Alkaline Phosphatase 129 H (46-116) U/L Troponin I High Sens 6.1 (4.0-76.1) pg/mL Total Protein 6.7 (6.4-8.2) g/dL Albumin 3.4 (3.4-5.0) g/dL Globulin 3.3 g/dL Albumin/Globulin Ratio 1.0 Urine Color Yellow (YELLOW) Urine Clarity Clear (CLEAR) Urine pH 6.0 (5.0-9.0) Ur Specific [place] >=1.030 A (1.005-1.025) Urine Protein Negative (NEG/TRACE) mg/dL Urine Glucose (UA) Negative (NEGATIVE) mg/dL Urine Ketones 15 A (NEGATIVE) mg/dL Urine Occult Blood Trace-l (NEGATIVE) Urine Nitrite Negative (NEGATIVE) Urine Bilirubin Negative (NEGATIVE) Urine Urobilinogen 0.2 (0.2-1.0) EU/dL Ur Leukocyte Esterase Negative (NEGATIVE) Urine RBC 2-5 A (0-2) #/HPF Urine WBC 0-2 A (NONE SEEN) #/HPF Ur Squamous Epith Cells Rare (NONE/RARE) #/LPF Urine Crystals None seen (None Seen) #/HPF Urine Bacteria Trace A (NONE SEEN) #/HPF Urine Casts None seen (NONE SEEN) #/LPF Urine Mucus Trace A (NONE SEEN) Ur Culture Indicated? No Imaging Data CT scan - head: Radiologist's impression: ITS Impressions Head CT 05/04/24 17:48 IMPRESSION: 1. Negative for acute intracranial hemorrhage or acute intracranial process. 2. 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 3. Negative for acute fracture or dislocation in the cervical spine. Electronically authenticated by: NEEMA MARISCAL Date: 05/04/2024 19:[address] 05/04/24 18:15 IMPRESSION: 1. Negative for acute intracranial hemorrhage or acute intracranial process. 2. 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 3. Negative for acute fracture or dislocation in the cervical spine. Electronically authenticated by: NEEMA MARISCAL Date: 05/04/2024 19:04 Discharge Plan Discharge Chief Complaint: Weakness Clinical Impression: Multiple falls Patient Disposition: Home, Self-Care Time of Disposition Decision: 20:17 Condition: Good Mode of Transportation: Private Vehicle Prescriptions / Home Meds: No Action donepezil 10 mg tablet 10 mg PO BEDTIME memantine 10 mg tablet 10 mg PO BID aspirin [Adult Aspirin Regimen] 81 mg tablet,delayed release (DR/EC) 81 mg PO DAILY albuterol sulfate 90 mcg/actuation HFA aerosol inhaler 2 inh inhalation Q4H PRN (Reason: shortness of breath or wheezing) Qty: 8.5 0RF Print Language: Citizen Of [place] Instructions: Fall Prevention for Older Adults (ED) Referrals: ASHLEY DE LA TORRE [Primary Care Provider] - 1 week
[2024-05-04 20:23] VITALS: BP 154/84; PULSE 74; TEMP 37.2; O2SAT 97
== END 2024-05-04 20:33 | disposition home or self-care (01) ==
PROVIDERS: Emergency Medicine; Emergency Provider Emergency Medicine
DX: Z04.3 Encounter for examination and observation following other accident (principal); G30.9 Alzheimer's disease, unspecified; F02.80 Dementia in other diseases classified elsewhere, unspecified severity, without behavioral disturbance, psychotic disturbance, mood disturbance, and anxiety; Z91.81 History of falling
CPT/HCPCS: 36415; 51798; 70450; 72125; 80053; 81001; 83735; 84484; 85025; 93005; 99285

== ENCOUNTER 2025-02-23 20:48 | Emergency (ER) | payer MEDICARE, SELFPAY ==
--- OUTSIDE RECORDS SUMMARY | 2024-12-15 06:00 | XMS_ITS ---
Author Organization [facility] in [place] Address [address] [place] [address] Care Team Providers Care Corporate Staff Accountant Name Role Phone Dion Donovan MD Primary Care Provider Unavailab DuqueRoxyLarry Unavailable [phone] Allergies Allergen (clinical drug ingredient) Drug/Non Drug Allergy documented on EMR Reaction Allergy Type Onset Date Status amoxicillin / clavulanate Augmentin Unknown Drug Allergy Active Eggs or Egg-derived Products Unknown Drug Allergy Active Substance with sulfonamide structure and antibacterial mechanism of action (substance) Sulfa Antibiotics Unknown Drug Allergy Active REASON FOR VISIT 6 mos f/u Asthma Medications Medication SIG (Take, Route, Frequency, Duration) Notes Start Date End Date Status Mucinex 600 MG 1 tablet as needed Orally every 12 hrs Not-Taking Albuterol Sulfate (2.5 MG/3ML) 0.083% 3mL Inhalation TID for 30 days Not-Taking Sodium Chloride 0.9 % 3mL Inhalation TID for 30 days Not-Taking NexIUM 24HR 20 MG 1 capsule Orally Once a day Active Advair Diskus 250-50 MCG/ACT 1 puff Inhalation Twice a day Not-Taking Claritin-D 24 Hour 10-240 MG take 1 tablet by mouth once daily Oral for 30 Days Active Isosorbide Mononitrate ER 30 MG 1 tablet in the morning Orally Once a day Active Fluticasone Propionate 50 MCG/ACT 1 spray in each nostril Nasally Twice a day Active Biotin 10 MG 1 tablet Orally Once a day Active Aspirin 81 MG 1 tablet Orally Once a day Active Trelegy Ellipta 200-62.5-25 MCG/ACT 1 puff Inhalation Once a day for 30 days Rinse after use 06/09/2023 Not-Taking Albuterol Sulfate HFA 108 (90 Base) MCG/ACT 2 puffs as needed for SOB Inhalation Q4H for 90 days Active Nasonex 24HR 50 MCG/ACT 2 sprays into each nostril Nasally Once a day for 90 days Active Breo Ellipta 100-25 MCG/ACT 1 puff Inhalation Once a day for 90 days Rinse after use Active Social History Tobacco Use: Social History Observation Description Date Details (start date - stop date) Former Smoker NA - NA Tobacco Control (Standard) Question Answer Notes Tobacco use: Former smoker How long has it been since y ou last smoked? Greater than 10 years Additional Findings: Tobacco non-user Ex -very heavy cigarette smoker (40+/day) Encounters Encounter Location Date Provider Diagnosis Pulmonary Medicine [address] [address] 12/15/2024 Larry Méndez Moderate persistent asthma, uncomplicated J45.40 ; Mucopurulent chronic bronchitis J41.1 ; Allergic rhinitis J30.9 ; Alzheimer's dementia G30.9 ; prison (current) use of inhaled steroids Z79.51 and History of tobacco abuse Z87.891 Assessments Encounter Date Diagnosis (ICD Code) Assessment Notes Treatment Notes Treatment Clinical Notes Section Notes 12/15/2024 Moderate persistent asthma, uncomplicated (ICD-10 - J45.40) No reported exacerbations over the past year, but he is developing more wheezing on examination now - he missed his 6 month appointment in December and again in February for F/U. Was on Trelegy last year during episode of Pertussis and changed back to his prior baseline Breo 100. He now has new faint expiratory wheezes on examination. Treatment is complicated as the patient has been getting his inhaler from [place] which is apparently eligible since it is written in a different writing system (they did not bring the inhaler into the office today). Additionally, his medication list from 04/30/2020 does not make any sense in my opinion as to ICS/LABA's are listed: Advair 250/50 and Breo 50. The Breo is not the patient's appropriate dose (this is typically more of a children's/adolesc ence dose) and I do not know where the Advair came from. With a new wheezes, I discussed changing the Breo back to Trelegy. However, I am concerned that this will be even more confusing for the patient and his . The plan for now is to continue with the Breo 100 (which I hope is what he is getting from [place]), and to use albuterol more often. I sent in refills appropriately to a local -based pharmacy in the event medications are required. 12/15/2024 Mucopurulent chronic bronchitis (ICD-10 - J41.1) Continue pulmonary toilet. 12/15/2024 Allergic rhinitis (ICD-10 - J30.9) Continue Flonase which she is getting from [facility]. 12/15/2024 Alzheimer's dementia (ICD-10 - G30.9) Diagnosed and treated through the [facility]. Patient is confused today and goes off on tangents, though he is easily redirectable. Patient also has a history of multiple falls that are increasing in frequency. I asked the patient's if she required any assistance, as the department of aging has services available. She appeared quite offended that I brought this up. I voiced my concern as the patient appears deteriorated in my opinion over the past year, along with a confusion of his inhaler/medication list. 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 I discussed that I see caregivers become stressed and lapse in their own health care in the situations, and I am only trying to assist her. She then went on and sedated she had 2 sons that live at home, and a third who lives next-door who will help them and she does not need any assistance. 12/15/2024 prison (current) use of inhaled steroids (ICD-10 - Z79.51) Patient was counseled to rinse & gargle with water after inhaled corticosteroid use. 12/15/2024 History of tobacco abuse (ICD-10 - Z87.891) This patient does not meet current LDCT criteria (e.g. age, time from cessation, # pack-years). 12/15/2024 Other Plan Of Treatment Medication Medication Name Sig Start Date Stop Date Notes Albuterol Sulfate HFA 108 (90 Base) MCG/ACT 2 puffs as needed for SOB Inhalation Q4H for 90 days Nasonex 24HR 50 MCG/ACT 2 sprays into ea ch nostril Nasally Once a day for 90 days Breo Ellipta 100-25 MCG/ACT 1 puff Inhalation Once a day for 90 days Rinse after use Treatment Notes Assessment Notes Moderate persistent asthma, uncomplicate d No reported exacerbations over the past year, but he is developing more wheezing on examination now - he missed his 6 month appointment in December and again in February for F/U. Was on Trelegy last year during episode of Pertussis and changed back to his prior baseline Breo 100. He now has new faint expiratory wheezes on examination. Treatment is complicated as the patient has been getting his inhaler from [place] which is apparently eligible since it is written in a different writing system (they did not bring the inhaler into the office today). Additionally, his medication list from 04/30/2020 does not make any sense in my opinion as to ICS/LABA's are listed: Advair 250/50 and Breo 50. The Breo is not the patient's appropriate dose (this is typically more of a children's/adolescence dose) and I do not know where the Advair came from. With a new wheezes, I discussed changing the Breo back to Trelegy. However, I am concerned that this will be even more confusing for the patient and his . The plan for now is to continue with the Breo 100 (which I hope is what he is getting from [place]), and to use albuterol more often. I sent in refills appropriately to a local -based pharmacy in the event medications are required. Mucopurulent chronic bronchitis Continue pulmonary toilet. Allergic rhinitis Continue Flonase which she is getting from [place]. Alzheimer's dementia Diagnosed and treated through the [facility]. Patient is confused today and goes off on tangents, though he is easily redirectable. Patient also has a history of multiple falls that are increasing in frequency. I asked the patient's if she required any assistance, as the department of aging has services available. She appeared quite offended that I brought this up. I voiced my concern as the patient appears deteriorated in my opinion over the past year, along with a confusion of his inhaler/medication list. 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 I discussed that I see caregivers become stressed and lapse in their own health care in the situations, and I am only trying to assist her. She then went on and sedated she had 2 sons that live at home, and a third who lives next-door who will help them and she does not need any assistance. 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 History of tobacco abuse This patient does not meet current LDCT criteria (e.g. age, time from cessation, # pack-years). Procedure Notes * Category Sub-Category Detail Notes PFT Data: 03/24/2023 - [facility]- FEV1/FVC: 57%-FEV1: 41%-FVC: 49%-Bronchodilator response: Positive-RV: 180%-T%-DLCO: 55%-Flow-volume loop: Coughing10/02/2016 - [place]-FEV1/FVC: 52% -FEV1: 42%-FVC: 57%-Bronchodilator response: Positive-RV: 207%-T%-DLCO: 86%-Flow-volume loop: Severe obstruction12/14/2015 - [place]-FEV1/FVC: 61%-FEV1: 45%-FVC: 52%-Bronchodilator response: Positive-RV: 131%-T%-DLCO: 82%-Flow-volume loop: Severe obstruction Progress Notes * Rolando MONAE PDOB:[birth year] (89 yo M)Acc No.[id number]:12/15/2024 UNLOCKED PROGRESS NOTE Follow Up Patient: Alexander RUIZald P Provider: Giana Méndez DO :1935 A ge:89 Y S ex:Male Date:12/15/2024 Address:[address] [place] [address], [facility], [id number] Pcp:Dion Donovan MD Check In:09:24 AM EST Subjective: * Chief Complaints: * 1 . 6 mos f/u Asthma. * ROS: G eneral/Constitutional: Fever or sweats d enies. C hange of appetite d enies. C hills d enies. W eight Change d enies. H EENT: Dry mouth d enies. S ore throat d enies. O ral Ulcers d enies. P ost Nasal Drip i mproved/controlled. C ongestion D enies. H oarseness D enies. C ardiovascular: Tachycardia d enies. C hest pain d enies. P alpitations d enies. R espiratory: Dyspnea d enies. C ough d enies. H emoptysis?denies. W heezing d enies. G astrointestinal: Acid Reflux/GERD/Heartburn d enies. M usculoskeletal: Arthralgias/joint pain D enies. S kin: Easy bruising d enies. N eurologic: Recent fall h istory of recurrent falls. S eizures d enies. T remor w ith nebulized albuterol. H ematology: Abnormal Bleeding d enies. P sychiatric: Memory loss or Confusion A lzheimer's. M ood Changes b ecomes confused and then argumentative. 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 * Surgical History: l eft knee replacement , left rotator cuff tear repair , Cardiac Catheterization 04/2011. * Hospitalization/Major Diagno stic Procedure: A cute Asthma Exacerbation-[facility] 03/02/2023. * Family History: F ather: diagnosed with Unspecified essential hypertension, Unspecified heart disease. * Social History: T obacco Use: T obacco Control (Standard) T obacco use: F ormer smoker H ow long has it been since you last smoked??Greater than 10 years A dditional Findings: Tobacco non-user E x-very heavy cigarette smoker (40+/day) LM: Additional Tobacco Questions N umber of Years Pt Smoked: 4 5 N umber of Packs per Day: 2 When did you stop smoking: Quit 34 years ago. M iscellaneous: O ccupation O ccupation: R etired [employer] In[employer] Pets: dogs. D rugs/Alcohol: D rugs H ave you used drugs other than those for medical reasons in the past 12 months? N o D oes the Patient have a History of Drug Abuse in the Past? N o Caffeine I ntake: 2 -3 cups per day Coffee Do you drink alcohol?: Yes, Daily (1-2 Beers per day). Do you smoke marijuana?: Denies. * Medications: T aking Albuterol Sulfate HFA 108 (90 Base) MCG/ACT Aerosol Solution 2 puffs as needed for SOB Inhalation Q4H , Taking Aspirin 81 MG Tablet Delayed Release 1 tablet Orally Once a day , Taking Biotin 10 MG Tablet 1 tablet Orally Once a day , Taking Breo Ellipta(Fluticasone Furoate-Vilanterol) 100-25 MCG/ACT Aerosol Powder Breath Activated 1 puff Inhalation Once a day , Notes to Pharmacist: Rinse after use, Taking Claritin-D 24 Hour(Loratadine-Pseudoephedrine ER) 10-240 MG Tablet Extended Release 24 Hour take 1 tablet by mouth once daily Oral , Taking Fluticasone Propionate 50 MCG/ACT Suspension 1 spray in each nostril Nasally Twice a day , Taking Isosorbide Mononitrate ER 30 MG Tablet Extended Release 24 Hour 1 tablet in the morning Orally Once a day , Taking Nasonex 24HR(Mometasone Furoate) 50 MCG/ACT Suspension 2 sprays into each nostril Nasally Once a day , Taking NexIUM 24HR(Esomeprazole Magnesium) 20 MG Capsule Delayed Release 1 capsule Orally Once a day , Not-Taking/PRN Advair Diskus(Fluticasone-Salmeterol) 250-50 MCG/ACT Aerosol Powder Breath Activated 1 puff Inhalation Twice a day , Not-Taking/PRN Albuterol Sulfate (2.5 MG/3ML) 0.083% Nebulization Solution 3mL Inhalation TID , Not-Taking/PRN Mucinex(guaiFENesin ER) 600 MG Tablet Extended Release 12 Hour 1 tablet as needed Orally every 12 hrs , Not-Taking/PRN Sodium Chloride 0.9 % Nebulization Solution 3mL Inhalation TID , Not-Taking/PRN Trelegy Ellipta(Rbxplcdozxw-Hdgnhwpao-Seujre) 200-62.5-25 MCG/ACT Aerosol Powder Breath Activated 1 puff Inhalation Once a day , Notes to Pharmacist: Rinse after use * Allergies: E ggs or Egg-derived Products: Allergy, Sulfa Antibiotics: Allergy, Augmentin: Allergy. Objective: * Vitals: * Examination: E xam: GENERAL APPEARANCE: D oes not appear to be in any distress.? Skin N ormal. No pallor or cyanosis. Mouth P ink and moist. No candidiasis. Oropharynx M allampati Class II. Trachea M idline. Chest N ormal. Respiratory N ormal Movements. Unlabored. Auscultation B reath sounds are diminished with faint end-expiratory wheezes in the upper lung javier. Cardiac R egular rate and rhythm. Gastrointestinal N ormal. Vascular N o edema. Musculoskeletal U nsteady balance. Neurological H gil of hearing. Psychiatric A lert and oriented x3. Mentation/Cognition C onfused at times, but easily redirectable. Defers nearly all questions to his . Assessment: * Assessment: 1. M oderate persistent asthma, uncomplicated - J45.40 (Primary) 2 . M ucopurulent chronic bronchitis - J41.1 3 . A llergic rhinitis - J30.9 ?4. A lzheimer's dementia - G30.9 5 . L akil term (current) use of inhaled steroids - Z79.51 6 . H istory of tobacco abuse - Z87.891 Plan: * Treatment: 2. M ucopurulent chronic bronchitis Notes: Continue pulmonary toilet. 3. A llergic rhinitis Refill Nasonex 24HR Suspension, 50 MCG/ACT, 2 sprays into each nostril, Nasally, Once a day, 90 days, 3 each, Refills 4. Notes: Continue Flonase which she is getting from [facility]. 4. A lzheimer's dementia Notes: Diagnosed and treated through the [facility]. Patient is confused today and goes off on tangents, though he is easily redirectable. Patient also has a history of multiple falls that are increasing in frequency. I asked the patient's if she required any assistance, as the department of aging has services available. She appeared quite offended that I brought this up. I voiced my concern as the patient appears deteriorated in my opinion over the past year, along with a confusion of his inhaler/medication list. 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 I discussed that I see caregivers become stressed and lapse in their own health care in the situations, and I am only trying to assist her. She then went on and sedated she had 2 sons that live at home, and a third who lives next-door who will help them and she does not need any assistance. 5. L akil term (current) use of inhaled steroids Notes: Patient was counseled to rinse & gargle with water after inhaled corticosteroid use. ? 6. H istory of tobacco abuse Notes: This patient does not meet current LDCT criteria (e.g. age, time from cessation, # pack-years).? * Procedures: P FT: Data: 03/24/2023 - [facility] -FEV1/FVC: 57% -FEV1: 41% -FVC: 49% -Bronchodilator response: Positive -RV: 180% -T% -DLCO: 55% -Flow-volume loop: Coughing 10/02/2016 - [place] -FEV1/FVC: 52% -FEV1: 42% -FVC: 57% -Bronchodilator response: Positive -RV: 207% -T% -DLCO: 86% -Flow-volume loop: Severe obstruction 12/14/2015 - [place] -FEV1/FVC: 61% -FEV1: 45% -FVC: 52% -Bronchodilator response: Positive -RV: 131% -T% -DLCO: 82% -Flow-volume loop: Severe obstruction . * Preventive Medicine: COVID Vaccination: H as patient had COVID Vaccination? COVID Vaccination Y es 05/17/2022 Immunization Status: P neumovacc P revnar 13-04/24/2017. I nfluenza 0 03/22/2022. Screenings/Counseling: F ALL RISK SCREENING Fall Risk Assessment: T wo or more falls without injury in the past year Are you afraid of falling? Y es T OBACCO ACTION PLAN Patient counselled on the dangers of tobacco use and urged to quit. 1 08/16/2023 Former Smoking cessation assistance provided?06/15/2024 Former F MAURA EXCLUSION Reason: M edical Reason refused/declined Type of Medical Reason: D rug allergy B DC ACTION PLAN Above Normal BMI Follow-up D ietary management education, guidance, and counseling * * Electronic signature of Arcelia Méndez DO on 02/23/2025 at 08:59 PM EDT Sign off status: Pending Visit Status: R /S (Rescheduled) * Provider: Giana Méndez DO Date: 0 12/15/2024 Generated for Jes smith/Alex/Lumaitting on: 0 02/23/2025 08:59 PM EDT History and Physical Notes * Examination Category Sub-Category Detail Notes Category Not es Exam GENERAL APPEARANCE: Does not appear to be in any distress Skin Normal. No pallor or cyanosis Mouth Independence and moist. No c andidiasis Trachea Midline Chest Normal Respiratory Normal Movements. Un labored Auscultation Breath sounds are di minished with faint end-expiratory wheezes in the upper lung javier Percussion Egophony Bronchophony Whispered pectoriloquy Cardiac Regular rate and rhy thm Murmur Gastrointestinal Normal Vascular No edema Musculoskeletal Unsteady balance Neurological Hard of hearing Psychiatric Alert and oriented x 3 Mentation/Cognition Confused at times, b ut easily redirectable. Defers nearly all questions to his Oropharynx Mallampati Class II
--- OUTSIDE RECORDS SUMMARY | 2024-12-27 05:09 | XMS_ITS ---
Author Organization [facility] in [place] Address [address] [place] [address] Care Team Providers Care Vegetable Picker Name Role Phone Dion Donovan MD Primary Care Provider Unavailab Larry Kaur Unavailable [phone] REASON FOR VISIT Appointment Encounters Encounter Location Date Provider Diagnosis Pulmonary Medicine [place] [address] [place] [address] 12/27/2024 Larry Méndez Plan Of Treatment No Information Progress Notes * Rolando MONAE PDOB:[birth year] (89 yo M)Acc No.[id number]:12/27/2024 Patient: Rolando RUIZ :1935 A ge:89 Y S ex:Male Address:[facility] [address] [place], [address] * true * Date: Generated for Maryai sarah/Ruthg/eTransmitting on: 0 02/23/2025 09:00 PM EDT
--- OUTSIDE RECORDS SUMMARY | 2025-01-04 09:30 | XMS_ITS ---
Author Organization [facility] in [place] Address [address] [place] [address] Care Team Providers Care Racking Technician Name Role Phone Dion Donovan MD Primary Care Provider Unavailab DuqueLarry Unavailable [phone] Allergies Allergen (clinical drug ingredient) Drug/Non Drug [...] Duration) Notes Start Date End Date Status Trelegy Ellipta 200-62.5-25 MCG/ACT 1 puff Inhalation Once a day for 30 days Rinse after use 06/09/2023 Not-Taking Sodium Chloride 0.9 % 3mL Inhalation TID for 30 days Not-Taking Mucinex 600 MG 1 tablet as needed Orally every 12 hrs Not-Taking Albuterol Sulfate (2.5 MG/3ML) 0.083% 3mL Inhalation TID for 30 days Not-Taking Advair Diskus 250-50 MCG/ACT 1 puff Inhalation Twice a day Not-Taking NexIUM 24HR 20 MG 1 capsule Orally Once a day Active Nasonex 24HR 50 MCG/ACT 2 sprays into each nostril Nasally Once a day for 90 days Active Memantine HCl 10 MG Oral for 90 Days Active Isosorbide Mononitrate ER 30 MG 1 tablet in the morning Orally Once a day Active Sertraline HCl 50 MG Oral for 30 Days Active Fluticasone Propionate 50 MCG/ACT 1 spray in each nostril Nasally Twice a day Active Donepezil HCl 10 MG Oral for 90 Days Active Claritin-D 24 Hour 10-240 MG take 1 tablet by mouth once daily Oral for 30 Days Active Breo Ellipta 100-25 MCG/ACT 1 puff Inhalation Once a day for 90 days Rinse after use Active Biotin 10 MG 1 tablet Orally Once a day Active Albuterol Sulfate HFA 108 (90 Base) MCG/ACT 2 puffs as needed for SOB Inhalation Q4H for 90 days Active Benzonatate 100 MG TAKE 1 CAPSULE BY MOUTH THREE TIMES DAILY NEEDED FOR COUGH Oral for 10 Days Active Aspirin 81 MG 1 tablet Orally Once a day Active Social History Tobacco Use: Social History Observation Description Date Details (start date - stop date) Former Smoker NA - NA Tobacco Control (Standard) Question Answer Notes Tobacco use: Former smoker How long has it been since y ou last smoked? Greater than 10 years Additional Findings: Tobacco non-user Ex -very heavy cigarette smoker (40+/day) Vital Signs Weight 151.4 lbs 01/04/2025 Height 66 in 01/04/2025 Blood pressure systolic 160 mm Hg 01/05/20 25 Blood pressure diastolic 85 mm Hg 025 Temperature 97.0 degrees Fahrenheit 01/05/20 25 Heart Rate 81 /min 01/04/2025 Respiratory Rate 20 /min 01/04/2025 BMI 24.43 kg/m2 01/04/2025 Oximetry 95 % 01/04/2025 Encounters Encounter Location Date Provider Diagnosis Pulmonary Medicine [address] [address] 01/04/2025 Larrydebby Méndez Moderate persistent asthma, uncomplicated J45.40 ; Mucopurulent chronic bronchitis J41.1 ; Allergic rhinitis J30.9 ; Alzheimer's dementia G30.9 ; Multiple falls R29.6 ; detention (current) use of inhaled steroids Z79.51 and History of tobacco abuse Z87.891 Assessments Encounter Date Diagnosis (ICD Code) Assessment Notes Treatment Notes Treatment Clinical Notes Section Notes 01/04/2025 Moderate persistent asthma, uncomplicated (ICD-10 - J45.40) Continues to have a cough, using Tessalon about once a day and using the Breo from [place] daily. Overall, his breathing has been doing fair over the past year. I discussed the new Medicare payment plan which could avoid purchasing foreign medications. His dementia is rapidly progressing in my opinion, which I feel is the more pressing issue compared to breathing. Discussed with if something dire happens from a pulmonary standpoint, there likely would not be a lot to be done given the advanced dementia. It is getting more and more difficult for her to get him out of the house. For now, I suggested his PCP can order refills and return to pulmonology PRN. She voiced agreement. 01/04/2025 Mucopurulent chronic bronchitis (ICD-10 - J41.1) Continue pulmonary toilet. 01/04/2025 Allergic rhinitis (ICD-10 - J30.9) Flonase is from [facility]. 01/04/2025 Alzheimer's dementia (ICD-10 - G30.9) Diagnosed and treated through the [facility]. Worsening in my opinion. Losing weight. More confused. 01/04/2025 Multiple falls (ICD-10 - R29.6) History of falls. Gait appears unstead. 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 01/04/2025 History of tobacco abuse (ICD-10 - Z87.891) This patient does not meet current LDCT criteria (e.g. age, time from cessation, # pack-years). Plan Of Treatment Treatment Notes Assessment Notes Moderate persistent asthma, uncomplicate d Continues to have a cough, using Tessalon about once a day and using the Breo from [place] daily. Overall, his breathing has been doing fair over the past year. I discussed the new Medicare payment plan which could avoid purchasing foreign medications. His dementia is rapidly progressing in my opinion, which I feel is the more pressing issue compared to breathing. Discussed with if something dire happens from a pulmonary standpoint, there likely would not be a lot to be done given the advanced dementia. It is getting more and more difficult for her to get him out of the house. For now, I suggested his PCP can order refills and return to pulmonology PRN. She voiced agreement. Mucopurulent chronic bronchitis Continue pulmonary toilet. Allergic rhinitis Flonase is from [facility]. Alzheimer's dementia Diagnosed and treated through the [facility]. Worsening in my opinion. Losing weight. More confused. Multiple falls History of falls. Gait appears unstead. detention (current) use of i nhaled steroids Patient was counseled to rinse & gargle with water after inhaled corticosteroid use. History of tobacco abuse This patient does not meet current LDCT criteria (e.g. age, time from cessation, # pack-years). Next Appt Details Follow Up: PRN, Reason: Procedure Notes * Category Sub-Category Detail Notes PFT Data: 03/24/2023 - [facility]- FEV1/FVC: 57%-FEV1: 41%-FVC: 49%-Bronchodilator response: Positive-RV: 180%-T%-DLCO: 55%-Flow-volume loop: Coughing10/02/2016 - [place]-FEV1/FVC: 52% -FEV1: 42%-FVC: 57%-Bronchodilator response: Positive-RV: 207%-T%-DLCO: 86%-Flow-volume loop: Severe obstruction12/14/2015 - [place]-FEV1/FVC: 61%-FEV1: 45%-FVC: 52%-Bronchodilator response: Positive-RV: 131%-T%-DLCO: 82%-Flow-volume loop: Severe obstruction Progress Notes * Alexander MONAEald PDOB:[birth year] (89 yo M)Acc No.[id number]:01/04/2025 Follow Up Patient: Rolando RUIZ P Provider: Giana Méndez DO :1935 A ge:89 Y S ex:Male Date:01/04/2025 Address:[address] [place] [address], [facility], [id number] Pcp:Dion Donovan MD Check In:01:33 PM ESTCheck O ut:02:07 PM EST Subjective: * Chief Complaints: * 6 mos f/u Asthma * HPI: G eneral: Patient is quite confused today. He states he is fine and hsa no problems. His states he continues to have a daily cough, using Tessalon about once a day. She states he is using Breo once a day - [place]. I noticed that he dropped 10 pounds since last visit - asked if he is eating okay - replied she thought he was. MA Intake Comments:. Patient presents for a follow-up for Asthma with his spouse. Patient denies any complaints or concerns with his breathing. Patient is using Breo daily. Patient is taking Benzonatate for his cough per his spouse. Patient appears to have a chronic cough today while in the exam room. Patient is under the care of [facility] Neu[facility]. * ROS: G eneral/Constitutional: Fever or sweats d enies. C hange of appetite d enies. C hills d enies. W eight Change d enies. H EENT: Dry mouth d enies. S ore throat d enies. O ral Ulcers d enies. P ost Nasal Drip n o complaints today. C ongestion D enies. H oarseness D enies. C ardiovascular: Tachycardia d enies. C hest pain d enies. P alpitations d enies. R espiratory: Chest tightness d enies. P leurisy D enies. D yspnea d enies. C ough a dmits. H emoptysis d enies. W heezing d enies. G astrointestinal: Acid Reflux/GERD/Heartburn d enies. M usculoskeletal: Arthralgias/joint pain D enies. S kin: Easy bruising d enies. R curt d enies. ? N eurologic: Recent fall h istory of recurrent falls. S eizures d enies. T remor w ith nebulized albuterol. H ematology: Abnormal Bleeding d enies. P sychiatric: Memory loss or Confusion A lzheimer's. M ood Changes b ecomes confused and then argumentative. * Active Problem List J45.40 Moderate persistent asthma, uncomplicated Modified On:06/23/2023/U Status:confirmed Z79.51 detention (current) use of inhaled steroids Modified On:06/23/2023/U Status:confirmed I25.10 CAD (coronary artery disease) Modified On:12/11/2023W/U Status:confirmed J30.9 Allergic rhinitis Modified On:06/23/2023U Status:confirmed G30.9 Alzheimer's dementia Modified On:06/15/2024U Status:confirmed Z91.012 Egg allergy Modified On:04/01/2023U Status:confirmed R29.6 Multiple falls Modified On:06/15/2024U Status:confirmed Z87.891 History of tobacco a buse Modified On:06/23/2023/U Status:confirmed J45.40 Moderate persistent asthma Modified On:03/31/2023/U Status:confirmed J41.1 Mucopurulent chronic bronchitis Modified On:06/23/2023 Status:confirmed * Medical History: * Surgical History: l eft knee replacement left rotator cuff tear repair Cardiac Catheterization 04/2011 * Hospitalization/Major Diagno stic Procedure: A cute Asthma Exacerbation-[facility] 03/02/2023 * Family History: F ather: diagnosed with [...] 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 D rugs/Alcohol: D rugs H [...] you smoke marijuana?: Denies. * Medications: T akingAlbuterol Sulfate HFA 108 (90 Base) MCG/ACT Aerosol Solution 2 puffs as needed for SOB Inhalation Q4H Aspirin 81 MG Tablet Delayed Release 1 tablet Orally Once a day Benzonatate 100 MG Capsule TAKE 1 CAPSULE BY MOUTH THREE TIMES DAILY NEEDED FOR COUGH Oral Biotin 10 MG Tablet 1 tablet Orally Once a day Breo Ellipta(Fluticasone Furoate-Vilanterol) 100-25 MCG/ACT Aerosol Powder Breath Activated 1 puff Inhalation Once a day , Notes to Pharmacist: Rinse after useClaritin-D 24 Hour(Loratadine-Pseudoephedrine ER) 10-240 MG Tablet Extended Release 24 Hour take 1 tablet by mouth once daily Oral Donepezil HCl 10 MG Tablet Oral Fluticasone Propionate 50 MCG/ACT Suspension 1 spray in each nostril Nasally Twice a day Isosorbide Mononitrate ER 30 MG Tablet Extended Release 24 Hour 1 tablet in the morning Orally Once a day Memantine HCl 10 MG Tablet Oral Nasonex 24HR(Mometasone Furoate) 50 MCG/ACT Suspension 2 sprays into each nostril Nasally Once a day NexIUM 24HR(Esomeprazole Magnesium) 20 MG Capsule Delayed Release 1 capsule Orally Once a day Sertraline HCl 50 MG Tablet Oral Taking Albuterol Sulfate HFA 108 (90 Base) MCG/ACT Aerosol Solution 2 puffs as needed for SOB Inhalation Q4H Taking Aspirin 81 MG Tablet Delayed Release 1 tablet Orally Once a day Taking Benzonatate 100 MG Capsule TAKE 1 CAPSULE BY MOUTH THREE TIMES DAILY NEEDED FOR COUGH Oral Taking Biotin 10 MG Tablet 1 tablet Orally Once a day Taking Breo Ellipta(Fluticasone Furoate-Vilanterol) 100-25 MCG/ACT Aerosol Powder Breath Activated 1 puff Inhalation Once a day , Notes to Pharmacist: Rinse after useTaking Claritin-D 24 Hour(Loratadine-Pseudoephedrine ER) 10-240 MG Tablet Extended Release 24 Hour take 1 tablet by mouth once daily Oral Taking Donepezil HCl 10 MG Tablet Oral Taking Fluticasone Propionate 50 MCG/ACT Suspension 1 spray in each nostril Nasally Twice a day Taking Isosorbide Mononitrate ER 30 MG Tablet Extended Release 24 Hour 1 tablet in the morning Orally Once a day Taking Memantine HCl 10 MG Tablet Oral Taking Nasonex 24HR(Mometasone Furoate) 50 MCG/ACT Suspension 2 sprays into each nostril Nasally Once a day Taking NexIUM 24HR(Esomeprazole Magnesium) 20 MG Capsule Delayed Release 1 capsule Orally Once a day Taking Sertraline HCl 50 MG Tablet Oral Not-Taking/PRNAdvair Diskus(Fluticasone-Salmeterol) 250-50 MCG/ACT Aerosol Powder Breath Activated 1 puff Inhalation Twice a day Albuterol Sulfate (2.5 MG/3ML) 0.083% Nebulization Solution 3mL Inhalation TID Mucinex(guaiFENesin ER) 600 MG Tablet Extended Release 12 Hour 1 tablet as needed Orally every 12 hrs Sodium Chloride 0.9 % Nebulization Solution 3mL Inhalation TID Trelegy Ellipta(Ibhgyaijlyn-Qvkjamcbp-Oakuol) 200-62.5-25 MCG/ACT Aerosol Powder Breath Activated 1 puff Inhalation Once a day , Notes to Pharmacist: Rinse after useMedication List reviewed and reconciled with the patientNot-Taking/PRN Advair Diskus(Fluticasone-Salmeterol) 250-50 MCG/ACT Aerosol Powder Breath Activated 1 puff Inhalation Twice a day Not-Taking/PRN Albuterol Sulfate (2.5 MG/3ML) 0.083% Nebulization Solution 3mL Inhalation TID Not-Taking/PRN Mucinex(guaiFENesin ER) 600 MG Tablet Extended Release 12 Hour 1 tablet as needed Orally every 12 hrs Not-Taking/PRN Sodium Chloride 0.9 % Nebulization Solution 3mL Inhalation TID Not-Taking/PRN Trelegy Ellipta(Czwjyktskss-Zqjynbrpk-Tkqjts) 200-62.5-25 MCG/ACT Aerosol Powder Breath Activated 1 puff Inhalation Once a day , Notes to Pharmacist: Rinse after useMedication List reviewed and reconciled with the patient * Allergies: E ggs or Egg-derived Products: AllergySulfa Antibiotics: AllergyAugmentin: Allergyno[Allergies Verified] Objective: * Vitals: W t:151.4lbs, Ht: 66 in, BP:sittin/85mm Hg, Temp:Forehead:97.0F, HR:81/min, RR:20/min, BMI:24.43Index, Oxygen sat %:Room Air:95%, Ht-cm: 167.64 cm, Wt-k.67 kg. * Examination: E xam: GENERAL APPEARANCE: H e appears thinner; face appears more aged. Skin N ormal. Mouth P ink and moist. No candidiasis. Oropharynx M allampati Class II. Trachea M idline. Chest N ormal. Respiratory N ormal Movements. Auscultation S ome upper lung field rhonchi. Cardiac R egular rate and rhythm. Gastrointestinal N ormal. Vascular N o edema. Musculoskeletal U nsteady balance. Neurological H gil of hearing. Psychiatric A lert, not oriented to time. Mentation/Cognition V kim confused today - worst I have seen him. Assessment: * Assessment: 1. M oderate persistent asthma, uncomplicated - J45.40 (Primary) 2 . M ucopurulent chronic bronchitis - J41.1 3 . A llergic rhinitis - J30.9 ?4. A lzheimer's dementia - G30.9 5 . M ultiple falls - R29.6 6. L akil term (current) use of inhaled steroids - Z79.51 7 . H istory of tobacco abuse - Z87.891 Plan: * Treatment: 2. M ucopurulent chronic bronchitis Notes: Continue pulmonary toilet. 3. A llergic rhinitis Notes: Flonase is from [facility]. 4. A lzheimer's dementia Notes: Diagnosed and treated through the [facility]. Worsening in my opinion. Losing weight. More confused. 5. M ultiple falls Notes: History of falls. Gait appears unstead. 6. L akil term (current) use of inhaled steroids Notes: Patient was counseled to rinse & gargle with water after inhaled corticosteroid use. ? 7. H istory of tobacco abuse Notes: This patient does not meet current LDCT criteria (e.g. age, time from cessation, # pack-years).? * Procedures: P FT: Data: 03/24/2023 - [facility] -FEV1/FVC: 57% -FEV1: 41% -FVC: 49% -Bronchodilator response: Positive -RV: 180% -T% -DLCO: 55% -Flow-volume loop: Coughing 10/02/2016 - [place] -FEV1/FVC: 52% -FEV1: 42% -FVC: 57% -Bronchodilator response: Positive -RV: 207% -T% -DLCO: 86% -Flow-volume loop: Severe obstruction 12/14/2015 - [place] -FEV1/FVC: 61% -FEV1: 45% -FVC: 52% -Bronchodilator response: Positive -RV: 131% -T% -DLCO: 82% -Flow-volume loop: Severe obstruction . * Procedure Codes: * Preventive Medicine: COVID Vaccination: H as patient had COVID Vaccination? COVID Vaccination Y es 05/17/2022 Immunization Status: P neumovacc P revnar 13-04/24/2017. I nfluenza 1 08/25/2023. Screenings/Counseling: F ALL RISK SCREENING Fall Risk Assessment: T wo or more falls without injury in the past year Are you afraid of falling? Y es T OBACCO ACTION PLAN Patient counselled on the dangers of tobacco use and urged to quit. 0 01/04/2025 Former Education on smoking effects provided?01/04/2025 Former F MAURA EXCLUSION Reason: M edical Reason refused/declined Type of Medical Reason: D rug allergy B AL ACTION PLAN Above Normal BMI Follow-up D ietary management education, guidance, and counseling * Follow Up: P RN * * Sign off status: Completed Visit Status: C HK (Check Out) true * Provider: Giana Méndez DO Date: 0 01/04/2025 Generated for eJs smith/Alex/Lumaitting on: 0 02/23/2025 08:59 PM EDT History and Physical Notes * HPI (History of Present Illness) Category Sub-Category Detail Notes Category Not es General Patient present s for a follow-up for Asthma with his spouse. Patient denies any complaints or concerns with his breathing. Patient is using Breo daily. Patient is taking Benzonatate for his cough per his spouse. Patient appears to have a chronic cough today while in the exam room. Patient is under the care of [facility] Neu[facility]. Examination Category Sub-Category Detail Notes Category Not es Exam GENERAL APPEARANCE: He appears t hinner; face appears more aged Skin Normal Mouth [place] and moist. No c andidiasis Trachea Midline Chest Normal Respiratory Normal Movements Auscultation Some upper lung fiel d rhonchi Percussion Egophony Bronchophony Whispered pectoriloquy Cardiac Regular rate and rhy thm Murmur Gastrointestinal Normal Vascular No edema Musculoskeletal Unsteady balance Neurological Hard of hearing Psychiatric Alert, not oriented to time Mentation/Cognition Very confused today - worst I have seen him Oropharynx Mallampati Class II
--- OUTSIDE RECORDS SUMMARY | 2025-02-09 14:39 | XMS_ITS | Encounter Summary ---
Author Organization N[facility]is[facility] tem Address [id number] [address] [place] [address] Care Team Providers Care Umbrella Mender Name Role Phone Dion Frazier MD Primary Care Provider [phone] Reason for Referral * Occupational Therapy (Routine) - Pending Review Specialty Diagnoses / Procedures Referred By Contac t Referred To Contact Occupational Therapy Diagnoses Closed nondisplaced fracture of greater trochanter of left femur, [place] Weston Cisneros PAVING MACHINE OPERATOR-RELIGION INSTRUCTOR [address], [facility] [address] [place] [address] Phone: tel: fax: Referral ID Status Reason Start Date Expiration Date Visits Requested Visits Authorized [id number] Pending Review Specialty Services Required 02/11/2025 08/14/2025 12 12 * Physical Therapy (Routine) - Pending Review Specialty Diagnoses / Procedures Referred By Contac t Referred To Contact Rehabilitation Diagnoses Closed nondisplaced fracture of greater trochanter of left femur, [place] [place] Weston Cisneros APRN-RELIGION INSTRUCTOR [address], [facility] [address] [place] [address] Phone: tel: fax: Referral ID Status Reason Start Date Expiration Date Visits Requested Visits Authorized [id number] Pending Review Specialty Services Required 02/11/2025 08/14/2025 12 12 * Consultation (Routine) - Pending Review Specialty Diagnoses / Procedures Referred By Contac t Referred To Contact Diagnoses Closed nondisplaced fracture of greater trochanter of left femur, [place] encounter [place] [place] Weston Cisneros APRN-CNP [address], [facility] [address] [place] [address] Phone: tel: fax: Referral ID Status Reason Start Date Expiration Date V isits Requested Visits Authorized [id number] Pending Review 02/11/2025 02/11/2026 1 1 * Misc (Routine) - Pending Review Specialty Diagnoses / Procedures Referred By Contac t Referred To Contact Procedures Discharge Follow-Up Weston Cisneros APRN-CNP [address], [place] [address] Phone: tel: fax: Referral ID Status Reason Start Date Expiration Date V isits Requested Visits Authorized [id number] Pending Review 02/11/2025 02/11/2026 1 1 * Misc (Routine) - Pending Review Specialty Diagnoses / Procedures Referred By Contac t Referred To Contact Diagnoses Closed nondisplaced fracture of greater trochanter of left femur, initial encounter [place] [place] Procedures Follow-up with primary care provider Weston Cisneros APRN-CNP [address], [place] [address] Phone: tel: fax: Referral ID Status Reason Start Date Expiration Date V isits Requested Visits Authorized [id number] Pending Review 02/11/2025 02/11/2026 1 1 * Misc (Routine) - Pending Review Specialty Diagnoses / Procedures Referred By Nakul woo Referred To Contact Procedures Adult diet Weston Cisneros APRN-CNP [address], [place] [place] [address] [place] [address] Phone: tel: fax: Referral ID Status Reason Start Date Expiration Date V isits Requested Visits Authorized [id number] Pending Review 02/11/2025 02/11/2026 1 1 Reason for Visit * Reason Comments Weakness - Generalized Fall * Auth/Cert (Routine) Specialty Diagnoses / Procedures Referred By Nakul woo Referred To Contact Diagnoses Pre-op exam Generalized weakness Frequent falls Closed nondisplaced fracture of greater trochanter of left femur, initial encounter [place] [place] History of dementia Shannon Gutierres MD [address] [place] [address] Phone: tel: fax: Referral ID Status Reason Start Date Expiration Date Visits Re quested Visits Authorized [id number] 1 1 Encounter Details Date Type Department Care Team (Latest Contact Info) Description 02/09/2025 2:39 PM EDT - 02/11/2025 2:57 PM EDT Hospital Encounter [facility] - Acute Care [address] [place] [id number] Shazia Grace MD [address] [place] [address] Shannon Gutierres MD [address] [place], [place] [id number] Closed nondisplaced fracture of greater trochanter of left femur, initial encounter [place] (Primary Dx); Frequent falls; Generalized weakness; History of dementia; Stage 3 severe COPD by GOLD classification ([facility]) Discharge Disposition: Nursing Home Facility-Medicare Cert Social History Tobacco Use Types Packs/Day Years Used Date Smoking Tobacco: Former Smokeless Tobacco: Never Alcohol Use Standard Drinks/Week Comments Yes 7 (1 standard drink = 0.6 oz pur e alcohol) 2 homero abdul nightly Childcare Answer Date Recorded Childcare Unknown 12/23/2018 Employment Answer Date Recorded Employment Unknown 12/23/2018 Hunger Screening Answer Date Recorded Within the past 12 months we worried whether our food would run out before we got money to buy more. Never True 02/09/2025 Within the past 12 months th e food we bought just didn't last and we didn't have money to get more. Never True 02/09/2025 Purpose - Life Answer Date Recorded Purpose and direction in life Unknown Sex and Gender Information Value Date Recorded Sex Assigned at Not on file Legal Sex Male 11:22 AM EDT Gender Identity Male 02/09/2025 6:37 PM EDT Sexual Orientation Straight 02/09/2025 6: 37 PM EDT documented as of this encounter Last Filed Vital Signs Vital Sign Reading Time Taken Comments Blood Pressure 135/87 02/11/2025 8:00 AM EDT Pulse 73 02/11/2025 7:58 AM EDT Temperature 36.2 C (97.1 F) 02/11/2025 7:58 AM EDT Respiratory Rate 18 02/11/2025 7:58 AM EDT Oxygen Saturation 93% 02/11/2025 7:58 AM EDT Inhaled Oxygen Concentration - - Weight 64.2 kg (141 lb 9.6 oz) 02/11/2025 5:00 A M EDT Height 167.6 cm (5' 6 ) 02/09/2025 6:30 PM EDT Body Mass Index 22.85 02/09/2025 6:30 PM EDT documented in this encounter Discharge Summaries * Shannon Gutierres MD - 02/11/2025 1:07 PM EDT Images from the original note were not included. [facility] - [facility]UTE [facility] [address] [facility] [id number] Hospital Medicine Discharge Summary Patient: Rolando Rothman Date of : 1935 Room: Encounter date: 02/11/25 DATE OF ADMISSION: 02/09/2025 DATE OF DISCHARGE:02/11/2025 DISCHARGE DIAGNOSES Principal Problem: Closed nondisplaced fracture of greater trochanter of left femur, initial encounter [place] Active Problems: Stage 3 severe COPD by GOLD classification [place] Dementia [place] Pre-op exam Generalized weakness Frequent falls Severe protein-calorie malnutrition [facility] Orthopedic surgery PCP: DION FRAZIER MD PROCEDURES None HOSPITAL COURSE SUMMARY Per HPI: Rolando Rothman is a 89 y.o. male who presents with left hip pain post fall. His son and are at bedside. He lives with his . He has dementia. Family reports he has fallen at least 3 times in the past month or so. He fell 4 days ago crossing [address] and struck his head, no loc. Today he had an unwitnessed fall at home. Family had to get him up off the floor and had to basically carry him to the car. He has a walker at home but does not use it. He takes aspirin daily, upto 1000mg. Also on imdur. Has history of asthma. Family denies other significant history. He is becoming to much for them to manage at home with his dementia and frequent falling. No leukocytosis or anemia. EKG shows sinus rhythm. X-ray hip negative for fracture. CT of left hip shows nondisplaced comminuted fracture of greater trochanter. Discussed with orthopedic surgeon who agrees to be on consult. While patient was here he was seen by orthopedic surgeon. Deemed fracture nonsurgical request PT OTevaluations. PT OT recommends [facility] facility. Patient weight-bearing as tolerated to leftlower extremity. Patient pain has been well controlled with Garwood. Patient be discharged to skillednursing facility with pain medication for further physical therapy. Clinical concern for sepsis, no-not clinically evident at this time. 02/11/25, Hospital Day: 3 Interval History: Status: improved. No overnight events or new complaints. Pain better controlled today. Review of Systems Unable to perform ROS: Dementia Musculoskeletal: Positive for arthralgias and gait problem. Multiple falls Psychiatric/Behavioral: Positive for confusion (Baseline dementia). Physical Exam BP 135/87 Pulse 73 Temp 36.2 ??C (97.1 ??F) (Temporal) Resp 18 Ht 167.6 cm (5' 6 ) Wt 64.2 kg (141 lb 9.6 oz) SpO2 93% BMI 22.85 kg/m?? Intake/Output Summary (Last 24 hours) at 02/11/2025 1307 Last data filed at 02/11/2025 0635 Gross per 24 hour Intake 320 ml Output 150 ml Net 170 ml Constitutional: General: No acute distress. Cardiovascular: Rate and Rhythm: Normal rate and regular rhythm. Heart sounds: Normal heart sounds, S1 normal and S2 normal. Pulmonary: Effort: Pulmonary effort is normal. Breath sounds: Normal breath sounds. Musculoskeletal: General: Tenderness (Tenderness to palpation to left hip) present. No swelling or deformity. Right lower leg: No edema. Left lower leg: No edema. Comments: Complaints of pain with movement Lymphadenopathy: Cervical: No cervical adenopathy. Skin: General: Skin is warm and dry. Capillary Refill: Capillary refill takes less than 2 seconds. Neurological: General: No focal deficit present. Mental Status: He is alert. Mental status is at baseline. He is confused. Comments: Pleasantly confused Psychiatric: Behavior: Behavior is cooperative. Cognition and Memory: Cognition is impaired. Memory is impaired. Labs Recent Results (from the past 48 hours) CBC auto differential Collection Time: 02/09/25 3:07 PM Result Value Ref Range WBC 5.4 4 - 11 x10E9/L RBC Count 4.36 4.1 - 5.7 X10E12/L Hemoglobin 13.5 13 - 17 g/dL Hematocrit 39.6 39 - 50 % MCV 91 80 - 100 fL MCH 31.0 27 - 34 pg MCHC 34.2 32 - 36 g/dL RDW 14.0 11.5 - 15 % Platelet Count 262 150 - 450 X10E9/L MPV 8.1 7 - 12 fL Neutrophils % 73.6 % Lymphocytes % 12.1 % Monocytes % 9.2 % Eosinophils % 2.4 % Basophils % 2.7 % Neutrophils Absolute (A) 4.0 1.5 - 6.6 10*3/uL Lymphocytes Absolute 0.7 (L) 1.0 - 3.5 10*3/uL Monocytes Absolute 0.5 0.0 - 0.9 10*3/uL Eosinophils Absolute 0.1 0.0 - 0.4 10*3/uL Basophils Absolute 0.1 0.0 - 0.2 10*3/uL Differential Type AUTOMATED DIFFERENTIAL ABO Rh Repeat Collection Time: 02/09/25 3:07 PM Result Value Ref Range ABO A RH Negative Comprehensive metabolic panel Collection Time: 02/09/25 3:08 PM Result Value Ref Range SODIUM 137 134 - 146 mmol/L POTASSIUM 3.5 3.5 - 5.0 mmol/L CHLORIDE 111 (H) 98 - 109 mmol/L CARBON DIOXIDE 22 22 - 32 mmol/L ANION GAP 4 (L) 5 - 15 mmol/L BLOOD UREA NITROGEN 21 5 - 27 mg/dL CREATININE 0.84 0.70 - 1.20 mg/dL GLUCOSE 124 (H) 65 - 99 mg/dL CALCIUM 8.3 (L) 8.5 - 10.5 mg/dL TOTAL PROTEIN 6.4 6.0 - 8.0 g/dL ALBUMIN 3.8 3.2 - 5.3 g/dL ALKALINE PHOSPHATASE 108 39 - 130 U/L AST 20 <=41 U/L ALT 19 <=40 U/L BILIRUBIN,TOTAL 0.2 (L) 0.3 - 1.2 mg/dL EGFR Non-Race Dependent 84 >=60 ml/min/1.73sq.m Troponin I, High Sensitivity Collection Time: 02/09/25 3:08 PM Narrative The following orders were created for panel order Troponin I, High Sensitivity. Procedure Abnormality Status --------- ------ Troponin I, High Sensiti...[[id number]] Normal Final result Troponin I, High Sensiti...[[id number]] Normal Final result Please view results for these tests on the individual orders. Magnesium Collection Time: 02/09/25 3:08 PM Result Value Ref Range MAGNESIUM 2.0 1.8 - 2.6 mg/dL Prealbumin Collection Time: 02/09/25 3:08 PM Result Value Ref Range PREALBUMIN 20 18 - 45 mg/dL Vitamin D 25 hydroxy Collection Time: 02/09/25 3:08 PM Result Value Ref Range VITAMIN D 25 HYD TOT 40.6 30.0 - 100.0 ng/mL Narrative Vitamin D status 25 [place] Vitamin D Deficiency <20 ng/mL Insufficiency 20-29 ng/mL Sufficiency 30-100 ng/mL Toxicity >100 ng/mL NOTE: A pediatric reference range has not been established by the channel executive of this kit. The [place] [employer] recommends a Vitamin D level of = or >20ng/mL in infants and children. Troponin I, High Sensitivity 0 Hour Collection Time: 02/09/25 3:08 PM Result Value Ref Range TROPONIN I, HIGH SENSITIVITY 4 <21 ng/L Extra Tubes Collection Time: 02/09/25 3:08 PM Narrative The following orders were created for panel order Extra Tubes. Procedure Abnormality Status --------- ------ Light Blue Top[[id number]] Final result Jackson Top On Ice[[id number]] Final result Please view results for these tests on the individual orders. Light Blue Top Collection Time: 02/09/25 3:08 PM Result Value Ref Range Extra Tube Auto Resulted Jackson Top On Ice Collection Time: 02/09/25 3:08 PM Result Value Ref Range Extra Tube Auto Resulted Type and screen(includes indirect octavio) Collection Time: 02/09/25 3:15 PM Result Value Ref Range ABO A RH Negative Antibody Screen Negative Troponin I, High Sensitivity 1 Hour Collection Time: 02/09/25 4:11 PM Result Value Ref Range TROPONIN I, HIGH SENSITIVITY 4 <21 ng/L Comprehensive metabolic panel Collection Time: 02/10/25 4:25 AM Result Value Ref Range SODIUM 140 134 - 146 mmol/L POTASSIUM 3.5 3.5 - 5.0 mmol/L CHLORIDE 107 98 - 109 mmol/L CARBON DIOXIDE 24 22 - 32 mmol/L ANION GAP 9 5 - 15 mmol/L BLOOD UREA NITROGEN 22 5 - 27 mg/dL CREATININE 0.84 0.70 - 1.20 mg/dL GLUCOSE 104 (H) 65 - 99 mg/dL CALCIUM 8.2 (L) 8.5 - 10.5 mg/dL TOTAL PROTEIN 5.7 (L) 6.0 - 8.0 g/dL ALBUMIN 3.2 3.2 - 5.3 g/dL ALKALINE PHOSPHATASE 95 39 - 130 U/L AST 15 <=41 U/L ALT 15 <=40 U/L BILIRUBIN,TOTAL 0.7 0.3 - 1.2 mg/dL EGFR Non-Race Dependent 84 >=60 ml/min/1.73sq.m Magnesium Collection Time: 02/10/25 4:25 AM Result Value Ref Range MAGNESIUM 1.8 1.8 - 2.6 mg/dL CBC auto differential Collection Time: 02/10/25 4:25 AM Result Value Ref Range WBC 7.0 4 - 11 x10E9/L RBC Count 3.93 (L) 4.1 - 5.7 X10E12/L Hemoglobin 12.3 (L) 13 - 17 g/dL Hematocrit 35.8 (L) 39 - 50 % MCV 91 80 - 100 fL MCH 31.3 27 - 34 pg MCHC 34.3 32 - 36 g/dL RDW 13.7 11.5 - 15 % Platelet Count 208 150 - 450 X10E9/L MPV 8.2 7 - 12 fL Neutrophils % 75.3 % Lymphocytes % 11.1 % Monocytes % 10.3 % Eosinophils % 2.4 % Basophils % 0.9 % Neutrophils Absolute (A) 5.3 1.5 - 6.6 10*3/uL Lymphocytes Absolute 0.8 (L) 1.0 - 3.5 10*3/uL Monocytes Absolute 0.7 0.0 - 0.9 10*3/uL Eosinophils Absolute 0.2 0.0 - 0.4 10*3/uL Basophils Absolute 0.1 0.0 - 0.2 10*3/uL Differential Type AUTOMATED DIFFERENTIAL Extra Tubes Collection Time: 02/10/25 4:25 AM Narrative The following orders were created for panel order Extra Tubes. Procedure Abnormality Status --------- ------ Light Blue Top[[id number]] Final result Please view results for these tests on the individual orders. Light Blue Top Collection Time: 02/10/25 4:25 AM Result Value Ref Range Extra Tube Auto Resulted Comprehensive metabolic panel Collection Time: 02/11/25 4:43 AM Result Value Ref Range SODIUM 138 134 - 146 mmol/L POTASSIUM 3.4 (L) 3.5 - 5.0 mmol/L CHLORIDE 107 98 - 109 mmol/L CARBON DIOXIDE 26 22 - 32 mmol/L ANION GAP 5 5 - 15 mmol/L BLOOD UREA NITROGEN 20 5 - 27 mg/dL CREATININE 0.73 0.70 - 1.20 mg/dL GLUCOSE 102 (H) 65 - 99 mg/dL CALCIUM 8.0 (L) 8.5 - 10.5 mg/dL TOTAL PROTEIN 5.4 (L) 6.0 - 8.0 g/dL ALBUMIN 3.0 (L) 3.2 - 5.3 g/dL ALKALINE PHOSPHATASE 84 39 - 130 U/L AST 13 <=41 U/L ALT 13 <=40 U/L BILIRUBIN,TOTAL 0.8 0.3 - 1.2 mg/dL EGFR Non-Race Dependent 88 >=60 ml/min/1.73sq.m Magnesium Collection Time: 02/11/25 4:43 AM Result Value Ref Range MAGNESIUM 1.9 1.8 - 2.6 mg/dL CBC auto differential Collection Time: 02/11/25 4:43 AM Result Value Ref Range WBC 5.4 4 - 11 x10E9/L RBC Count 3.53 (L) 4.1 - 5.7 X10E12/L Hemoglobin 11.1 (L) 13 - 17 g/dL Hematocrit 32.4 (L) 39 - 50 % MCV 92 80 - 100 fL MCH 31.4 27 - 34 pg MCHC 34.2 32 - 36 g/dL RDW 14.3 11.5 - 15 % Platelet Count 184 150 - 450 X10E9/L MPV 8.3 7 - 12 fL Neutrophils % 65.5 % Lymphocytes % 17.6 % Monocytes % 12.2 % Eosinophils % 3.5 % Basophils % 1.2 % Neutrophils Absolute (A) 3.6 1.5 - 6.6 10*3/uL Lymphocytes Absolute 1.0 1.0 - 3.5 10*3/uL Monocytes Absolute 0.7 0.0 - 0.9 10*3/uL Eosinophils Absolute 0.2 0.0 - 0.4 10*3/uL Basophils Absolute 0.1 0.0 - 0.2 10*3/uL Differential Type AUTOMATED DIFFERENTIAL Extra Tubes Collection Time: 02/11/25 4:43 AM Narrative The following orders were created for panel order Extra Tubes. Procedure Abnormality Status --------- ------ Light Blue Top[[id number]] Final result Please view results for these tests on the individual orders. Light Blue Top Collection Time: 02/11/25 4:43 AM Result Value Ref Range Extra Tube Auto Resulted Potassium Collection Time: 02/11/25 12:15 PM Result Value Ref Range POTASSIUM 4.0 3.5 - 5.0 mmol/L Radiology CT hip left without contrast Result Date: 02/09/2025 Narrative: CT HIP LT WO CONT Clinical history:fall, negative xray, unable to bear weight head pain Comparison: None. Findings: There is degenerative changes of the left hip with joint space loss and narrowing osteophyte formation. There is degenerative changes of the left sacroiliac joints with some ankylosis. There is a comminuted nondisplaced left greater trochanter fracture noted. There is mild soft tissue swelling and edema. There is a small bladder calculus noted. The prostate is enlarged.Impression: Comminuted nondisplaced fracture of the left greater trochanter. Degenerative changes. Small bladder calculus. All CT scans at this facility use dose modulation, iterative reconstruction,and/or weight based dosing when appropriate to reduce radiation dose to as low as reasonably achievable. Finalized by Mir Mccartney MD on 02/09/2025 4:08 PM X-ray femur left 2+ views Result Date: 02/09/2025 Narrative: XR FEMUR LT 2+ VIEWS Clinical history:fall hip pain Comparison: None. Impression: Degenerative changes left hip.) Plasty noted. No acute process fracture or dislocation. If the patient is unable to bear weight or if there is concern for nondisplaced hip fracture, consider correlation with MRI. Finalized by Mir Mccartney MD on 02/09/2025 3:46 PM X-ray hip left 2-3 views with or without pelvis Result Date: 02/09/2025 Narrative: XR HIP LT 2-3 VIEWS W OR WO PELVIS Clinical history:fall hip pain Comparison: None. Impression: Degenerative changes of the left hip with joint space loss and narrowing osteophyte formation. Degenerative change of the lumbar spine and right hip. No acute process fracture or dislocation. If the patient is unable to bear weight or if there is concern for nondisplaced hip fracture, consider correlation with MRI. Finalized by Mir Mccartney MD on 02/09/2025 3:45 PM X-ray chest 1 view Result Date: 02/09/2025 Narrative: XR CHEST 1 VW: 02/09/2025 3:19 PM Clinical: Injury with pain Supine frontal chest is compared with 08/05/2024. Stable calcified right hilar lymph nodes. Heart size is normal. No focal consolidation, large effusion, or pneumothorax. IMPRESSION: * No acute disease to limits of this single view exam. * Recommend a two-view chest or CT if symptoms persist. Finalized by Joaquin Ohara MD on 02/09/2025 3:[address] cervical spine without contrast Result Date: 02/09/2025 Narrative: HISTORY: An 89-year-old male with a history of fall from the standing and head injury. There is also a history of frequent falls. EXAM/TECHNIQUE: Multidetector spiral CT scan of cervical spine is performed. Multiplanar reconstruction images are obtained. All CT scans at this facility usedose modulation, iterative reconstruction, and/or weight based dosing when appropriate to reduce radiation dose to as low as reasonably achievable. COMPARISON: Comparison is made with the CT scan of the cervical spine of 07/30/2024. FINDINGS: There is no evidence of fracture through the cervical vert ebrae. The posterior elements are intact. Sagittal and coronal images demonstrate normal vertebral heights. There is no evidence of compression fractures or acute bony pathology. Facet joints are intact. The odontoid process is intact. There are disc degenerative changes in the cervical spine with p articularly involvement of the mid and lower cervical spine. Facet arthropathy seen at multiple levels. Minimal anterolisthesis is seen at C5-C6 and C7-T1. No significant prevertebral soft tissue abnormality is identified. 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 IMPRESSION: * No evidence of fracture or acute bony pathology. 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 * Minimal anterolisthesis at C5-C6 and C7-T1. Finalized by Raul Stone MD on 02/09/2025 3:[address] brain without contrast Result Date: 02/09/2025 Narrative: CLINICAL INFORMATION: fall head injury TECHNIQUE: CT BRAIN WO CONT CT images of the brain were obtained. There is cerebral atrophy and chronic ischemic changes. Remote posterior frontal right cortical infarct. No mass or midline shift. No acute hemorrhage identified. Paranasal sinuses and mastoid air cells appear clear. No osseous amount is seen. IMPRESSION: Atrophy and chronic ischemic changes. All CT scans at this facility use dose modulation, iterative reconstruction, and/or weight based dosing when appropriate to reduce radiation dose to as low as reasonably achievable. Finalized by Corby Eid MD on 02/09/2025 3:26 PM DISCHARGE ASSESSMENT & PLAN OARRS/MAPPS was reviewed by Weston Cisneros APRN-JALEN today. Tylenol as needed for pain Garwood as needed for breakthrough pain DuoNebs as needed. DISCHARGE INSTRUCTION Disposition: ECF Condition: Good Activity: activity as tolerated Diet: Adult diet Regular Texture; No Added Salt (3-4 gm Sodium); Low Fat/Low Cholesterol Adult nutrition supplements Adult diet Follow up: DION FRAZIER MD within 7-14 days. Follow up with Orthopedics in 3-4 weeks Labs/Imaging/Pathology: None Discharge Medications: Medication List START taking these medications Instructions Last Dose Given Next Dose Due acetaminophen 325 mg tablet Commonly known as: TYLENOL Take 2 tablets (650 mg total) by mouth every 6 (six) hours as needed for fever or headaches. HYDROcodone-acetaminophen 5-325 mg per tablet Commonly known as: NORCO Take 1 tablet by mouth every 6 (six) hours as needed for pain for up to 7 days. Max Daily Amount: 4tablets ipratropium-albuteroL 0.5 mg-3 mg(2.5 mg base)/3 mL nebulizer Commonly known as: DUONEB Inhale 3 mL by nebulization every 4 (four) hours as needed for wheezing or shortness of breath. CHANGE how you take these medications Instructions Last Dose Given Next Dose Due albuterol 90 mcg/actuation inhaler Commonly known as: PROVENTIL HFA;VENTOLIN HFA What changed: Another medication with the same name was removed. Continue taking this medication, and follow the directions you see here. Inhale 2 puffs every 4 (four) hours as needed for wheezing. CONTINUE taking these medications Instructions Last Dose Given Next Dose Due benzonatate 100 mg capsule Commonly known as: TESSALON PERLES Take 1 capsule (100 mg total) by mouth every 8 (eight) hours. donepeziL 10 mg tablet Commonly known as: ARICEPT Take 1 tablet (10 mg total) by mouth nightly. fluticasone propion-salmeteroL 113-14 mcg/actuation aerosol powdr breath activated Inhale 1 puff 2 (two) times a day. isosorbide mononitrate 30 mg 24 hr tablet Commonly known as: IMDUR Take 0.5 tablets (15 mg total) by mouth. loratadine-pseudoephedrine 10-240 mg per 24 hr tablet Commonly known as: CLARITIN-D 24-hour Take 1 tablet by mouth in the morning. memantine 10 mg tablet Commonly known as: NAMENDA Take 1 tablet (10 mg total) by mouth in the morning and 1 tablet (10 mg total) before bedtime. mometasone 50 mcg/actuation nasal spray Commonly known as: NASONEX Administer 2 sprays into each nostril in the morning. NexIUM 40 mg capsule Generic drug: esomeprazole Take 1 capsule (40 mg total) by mouth. sertraline 50 mg tablet Commonly known as: ZOLOFT Take 1.5 tablets (75 mg total) by mouth in the morning. tiotropium 18 mcg per inhalation capsule Commonly known as: SPIRIVA Place 1 capsule into inhaler and inhale once daily. STOP taking these medications BREO ELLIPTA 50-25 mcg/dose blister with device Generic drug: fluticasone furoate-vilanteroL EXTRA STRENGTH GAIL 500 mg tablet Generic drug: aspirin fluticasone propionate 50 mcg/actuation nasal spray Commonly known as: FLONASE Where to Get Your Medications You can get these medications from any pharmacy Bring a paper prescription for each of these medications HYDROcodone-acetaminophen 5-325 mg per tablet Information about where to get these medications is not yet available Ask your nurse or doctor about these medications acetaminophen 325 mg tablet ipratropium-albuteroL 0.5 mg-3 mg(2.5 mg base)/3 mL nebulizer >30 minutes were spent on discharging this patient. Weston Cisneros, NIALL-JALEN, 02/11/2025 1:07 PM [facility] Internal Medicine 7AM-7PM & 7PM-7AM: EpicChat or page through On-Call Finder. Physician Attestation: I have reviewed the above note authored by the Advance Practice Provider (RICKY) including history, review of systems, physical examination, medical decision making and agree with the assessment & plan. I have personally performed a face to face diagnostic evaluation on this patient. I have reviewed all laboratory findings and imaging reports/films. I have independently evaluated the patient and repeated hunter portions of the physical exam. I agree with the RICKY plan as above, unless otherwise noted. SHANNON GUTIERRES MD documented in this encounter Medications at Time of Discharge albuterol (PROVENTIL HFA;VENTOLIN HFA) 90 mcg/actuation inhalerIndications: Bronchitis Inhale 2 puffs every 4 (four) hours as needed for wheezing. 18 g 5 benzonatate (TESSALON PERLES) 100 mg capsule Take 1 capsule (100 mg total) by mouth every 8 (eight) hours. 21 capsule 5 donepeziL (ARICEPT) 10 mg tablet Take 1 tablet (10 mg total) by mouth nightly. esomeprazole (NexIUM) 40 mg capsule Take 1 capsule (40 mg total) by mouth. 1 fluticasone-salmete rol 113-14 mcg/actuation aerosol powdr breath activatedIndication s:Stage 3 severe COPD by GOLD classification ([facility] [place]),Moderate persistent asthma, unspecified whether complicated Inhale 1 puff 2 (two) times a day. 1 each 11 8 isosorbide mononitrate (IMDUR) 30 mg 24 hr tablet Take 0.5 tablets (15 mg total) by mouth. 6 loratadine-pseudoep hedrine (CLARITIN-D 24-hour) 10-240 mg per 24 hr tablet Take 1 tablet by mouth in the morning. memantine (NAMENDA) 10 mg tablet Take 1 tablet (10 mg total) by mouth in the morning and 1 tablet (10 mg total) before bedtime. mometasone (NASONEX) 50 mcg/actuation nasal spray Administer 2 sprays into each nostril in the morning. sertraline (ZOLOFT) 50 mg tablet Take 1.5 tablets (75 mg total) by mouth in the morning. tiotropium (SPIRIVA) 18 mcg per inhalation capsule Place 1 capsule into inhaler and inhale once daily. 30 capsule 12 7 acetaminophen (TYLENOL) 325 mg tablet Take 2 tablets (650 mg total) by mouth every 6 (six) hours as needed for fever or headaches. 5 ipratropium-albuter oL (DUONEB) 0.5 mg-3 mg(2.5 mg base)/3 mL nebulizerIndication s:Stage 3 severe [place] classification [place] [place] Inhale 3 mL by nebulization every 4 (four) hours as needed for wheezing or shortness of breath. 5 HYDROcodone-acetami nophen (NORCO) 5-325 mg per tabletIndications:C losed nondisplaced fracture of greater trochanter of left femur, initial encounter [place] [place] Take 1 tablet by mouth every 6 (six) hours as needed for pain for up to 7 days. Max Daily Amount: 4 tablets 28 tablet 5 02/19/20 25 documented as of this encounter Progress Notes * SUYAPA Sal - 02/10/2025 12:27 PM EDT NUTRITION ADULT INITIAL EVALUATION NUTRITION ASSESSMENT Reason To Be Seen: Per policy assessment for fx femur Hospital Occurrences: Pt admitted with a left femur fx., hx of COPD severe, GERD, dementia, and weakness. Admit Diagnosis: Patient Active Problem List Diagnosis Stage 3 severe COPD [place] GOLD classification [place] [place] Moderate persistent asthma Gastroesophageal reflux disease without esophagitis Seasonal allergies Allergy to influenza vaccine Closed nondisplaced fracture of greater trochanter of left femur, initial encounter [place] [place] D[place] [place] Pre-op exam Generalized weakness Frequent falls Past Medical History: Past Medical History: Diagnosis Date Allergic rhinitis Asthma CAD (coronary artery disease) Carpal tunnel syndrome Degenerative joint disease Dementia [place] [place] Fractures GERD (gastroesophageal reflux disease) OA (osteoarthritis) Pneumonia Rotator cuff tear Visual impairment Past Surgical History: Past Surgical History: Procedure Laterality Date ARTHROSCOPY SHOULDER / OPEN SHOULDER CARDIAC CATHETERIZATION COLONOSCOPY KNEE SURGERY ROTATOR CUFF REPAIR Diet History: nursing report good oral intakes Allergies: Allergies Allergen Reactions Augmentin [Amoxicillin-Pot Clavulanate] Eggshell Membrane Pineapple Other reaction(s): Other: See Comments Tickle in back of throat Sulfa (Sulfonamide Antibiotics) Nutrition Focused Physical Findings-- As per nutrition flow sheet- Skin: Skin Color: Ecchymosis (02/10/25750) Skin Temp: Warm, Dry (02/10/25750) Wound: Gastrointestinal: Edema: Labs: Results from last 3 days Lab Units 02/10/25 0425 02/09/25 1508 SODIUM mmol/L 140 137 POTASSIUM mmol/L 3.5 3.5 CHLORIDE mmol/L 107 111* CO2 mmol/L 24 22 BUN mg/dL 22 21 CREATININE mg/dL 0.84 0.84 CALCIUM mg/dL 8.2* 8.3* ALBUMIN g/dL 3.2 3.8 ALK PHOS U/L 95 108 ALT U/L 15 19 AST U/L 15 20 Results from last 7 days Lab Units 02/10/25 0425 02/09/25 1508 GLUCOSE mg/dL 104* 124* Results from last 3 days Lab Units 02/10/25 0425 02/09/25 1508 MAGNESIUM mg/dL 1.8 2.0 No data from last 3 days. Results from last 3 days Lab Units 02/10/25 0425 02/09/25 1507 WBC x10E9/L 7.0 5.4 HEMOGLOBIN g/dL 12.3* 13.5 HEMATOCRIT % 35.8* 39.6 PLATELETS X10E9/L 208 262 MCV fL 91 91 No results found for: [id number] No results found for: FOLATE No results found for: IRON , TIBC , FERRITIN No results found for: IRONSAT No results found for: HGBA1C No results found for: CHOL No results found for: HDL , LDL No results found for: LIPIDPROF No results found for: VIDHYDROX Medications/ Parenteral: Medications Prior to Admission Medication Sig Dispense Refill Last Dose/Taking albuterol (PROVENTIL HFA;VENTOLIN HFA) 90 mcg/actuation inhaler Inhale 2 puffs every 6 (six) hours as needed for wheezing or shortness of breath. 18 g 11 02/09/2025 aspirin (EXTRA STRENGTH GAIL) 500 mg tablet Take 2 tablets (1,000 mg total) by mouth. 02/09/2025 donepeziL (ARICEPT) 10 mg tablet Take 1 tablet (10 mg total) by mouth nightly. 02/09/2025 esomeprazole (NexIUM) 40 mg capsule Take 1 capsule (40 mg total) by mouth. 02/09/2025 fluticasone (FLONASE) 50 mcg/actuation nasal spray Administer 1 spray into each nostril in the morning. 02/09/2025 fluticasone furoate-vilanteroL (BREO ELLIPTA) 50-25 mcg/dose blister with device Inhale. 02/09/2025 fluticasone-salmeterol 113-14 mcg/actuation aerosol powdr breath activated Inhale 1 puff 2 (two) times a day. 1 each 11 02/09/2025 isosorbide mononitrate (IMDUR) 30 mg 24 hr tablet Take 0.5 tablets (15 mg total) by mouth. 02/09/2025 loratadine-pseudoephedrine (CLARITIN-D 24-hour) 10-240 mg per 24 hr tablet Take 1 tablet by mouth in the morning. 02/09/2025 memantine (NAMENDA) 10 mg tablet Take 1 tablet (10 mg total) by mouth in the morning and 1 tablet (10 mg total) before bedtime. 02/09/2025 mometasone (NASONEX) 50 mcg/actuation nasal spray Administer 2 sprays into each nostril in the morning. 02/09/2025 sertraline (ZOLOFT) 50 mg tablet Take 1.5 tablets (75 mg total) by mouth in the morning. 02/09/2025 albuterol (PROVENTIL HFA;VENTOLIN HFA) 90 mcg/actuation inhaler Inhale 2 puffs every 4 (four) hoursas needed for wheezing. 18 g 0 benzonatate (TESSALON PERLES) 100 mg capsule Take 1 capsule (100 mg total) by mouth every 8 (eight)hours. 21 capsule 0 tiotropium (SPIRIVA) 18 mcg per inhalation capsule Place 1 capsule into inhaler and inhale once daily. 30 capsule 12 Current Facility-Administered Medications Medication Dose Route Frequency Provider Last Rate Last Admin acetaminophen (TYLENOL) tablet 650 mg 650 mg oral Q6H PRN Weston D Krotzer, PAVING MACHINE OPERATOR-RELIGION INSTRUCTOR benzonatate (TESSALON PERLES) capsule 100 mg 100 mg oral Q8H PRN Weston D Krotzer, PAVING MACHINE OPERATOR-RELIGION INSTRUCTOR calcium gluconate 3,000 mg in sodium chloride 0.9 % 100 mL IVPB 3,000 mg intravenous PRN Weston D Krotzer, PAVING MACHINE OPERATOR-RELIGION INSTRUCTOR calcium gluconate 4,000 mg in sodium chloride 0.9 % 250 mL IVPB 4,000 mg intravenous PRN Weston D Krotzer, PAVING MACHINE OPERATOR-RELIGION INSTRUCTOR calcium gluconate IVPB 2000 mg/100 mL (20 mg/mL premix) 2,000 mg intravenous PRN Weston D Krotzer, PAVING MACHINE OPERATOR-RELIGION INSTRUCTOR dextrose (GLUTOSE) 40 % gel 15 g 15 g oral PRN Weston D Krotzer, PAVING MACHINE OPERATOR-RELIGION INSTRUCTOR dextrose 5 % (D5W) infusion 100 mL/hr intravenous Continuous PRN Weston D Krotzer, PAVING MACHINE OPERATOR-RELIGION INSTRUCTOR dextrose 50 % in water (D50W) 50% solution 25 mL 25 mL intravenous PRN Weston D Krotzer, PAVING MACHINE OPERATOR-RELIGION INSTRUCTOR donepeziL (ARICEPT) tablet 10 mg 10 mg oral Nightly Weston D Krotzer, PAVING MACHINE OPERATOR-RELIGION INSTRUCTOR enoxaparin (LOVENOX) syringe 40 mg 40 mg subcutaneous Daily Weston D Krotzer, PAVING MACHINE OPERATOR-RELIGION INSTRUCTOR glucagon HCL injection 1 mg 1 mg intramuscular PRN Weston D Krotzer, PAVING MACHINE OPERATOR-RELIGION INSTRUCTOR HYDROcodone-acetaminophen (NORCO) 5-325 mg per tablet 1 tablet 1 tablet oral Q6H PRN Weston D Krotzer, PAVING MACHINE OPERATOR-RELIGION INSTRUCTOR 1 tablet at 02/10/25 0958 ipratropium-albuteroL (DUONEB) 0.5 mg-3 mg(2.5 mg base)/3 mL nebulizer solution 3 mL 3 mL nebulization Q4H PRN Weston D Krotzer, PAVING MACHINE OPERATOR-RELIGION INSTRUCTOR isosorbide mononitrate (IMDUR) 24 hr tablet 15 mg 15 mg oral Daily Weston D Krotzer, PAVING MACHINE OPERATOR-RELIGION INSTRUCTOR 15 mg at 02/10/25 0959 magnesium sulfate IVPB 2000 mg/50 mL in iso-osmotic water (40 mg/mL premix) 2,000 mg intravenous PRN Weston D Krotzer, PAVING MACHINE OPERATOR-RELIGION INSTRUCTOR magnesium sulfate IVPB 4000 mg/100 mL in iso-osmotic water (40 mg/mL premix) 4,000 mg intravenous PRN Weston D Krotzer, PAVING MACHINE OPERATOR-RELIGION INSTRUCTOR memantine (NAMENDA) tablet 10 mg 10 mg oral BID Weston D Krotzer, PAVING MACHINE OPERATOR-RELIGION INSTRUCTOR 10 mg at 02/10/25 0959 morphine injection 2 mg 2 mg intravenous Q4H PRN Weston D Krotzer, PAVING MACHINE OPERATOR-RELIGION INSTRUCTOR ondansetron (PF) (ZOFRAN) injection 4 mg 4 mg intravenous Q6H PRN Weston D Krotzer, PAVING MACHINE OPERATOR-RELIGION INSTRUCTOR potassium chloride (K-TAB,KLOR-CON) CR tablet 30-50 mEq 30-50 mEq oral PRN Weston D Krotzer, PAVING MACHINE OPERATOR-RELIGION INSTRUCTOR Or potassium chloride (KAYCIEL) 20 mEq/15 mL solution 30-50 mEq 30-50 mEq oral PRN Weston D Krotzer, PAVING MACHINE OPERATOR-RELIGION INSTRUCTOR Or potassium chloride IVPB 10 mEq/100 mL in water (0.1 mEq/mL premix) 10 mEq intravenous PRN Weston D Krotzer, PAVING MACHINE OPERATOR-RELIGION INSTRUCTOR sertraline (ZOLOFT) tablet 75 mg 75 mg oral Daily Weston D Krotzer, PAVING MACHINE OPERATOR-RELIGION INSTRUCTOR 75 mg at 02/10/25 0958 sodium phosphate 20 mmol in sodium chloride 0.9 % 250 mL IVPB 20 mmol intravenous PRN Weston D Krotzer, PAVING MACHINE OPERATOR-RELIGION INSTRUCTOR Or sodium phosphate 20 mmol in sodium chloride 0.9 % 100 mL IVPB 20 mmol intravenous PRN Weston D Krotzer, PAVING MACHINE OPERATOR-RELIGION INSTRUCTOR Or sod phos di, mono-K phos mono (K-PHOS NEUTRAL) 250 mg tablet 2 tablet 2 tablet oral PRN Weston D Krotzer, PAVING MACHINE OPERATOR-RELIGION INSTRUCTOR sodium chloride 0.9 % flush bag 25 mL intravenous PRN Weston D Krotzer, PAVING MACHINE OPERATOR-RELIGION INSTRUCTOR sodium chloride 0.9 % infusion 20 mL/hr intravenous Continuous PRN Weston D Krotzer, PAVING MACHINE OPERATOR-RELIGION INSTRUCTOR umeclidinium (INCRUSE ELLIPTA) 62.5 mcg/actuation inhaler 1 puff 1 puff inhalation Daily Weston D Krotzer, PAVING MACHINE OPERATOR-RELIGION INSTRUCTOR 1 puff at 02/10/25 0831 Nutrition Findings/Summary: noted weight loss of 14.8 % in 6 months Unable to perform NFPE due to dementia and fx Anthropometrics: Ht Readings from Last 1 Encounters: 02/09/25 167.6 cm (5' 6 ) Wt Readings from Last 10 Encounters: 02/09/25 62.6 kg (138 lb) 08/05/24 73.5 kg (162 lb) 07/29/24 73.5 kg (162 lb) 05/07/18 76.2 kg (168 lb) 11/01/16 76.2 kg (168 lb) [place] Body Weight: 64.2 kg Percent [place] Body Weight: 98 % Body Mass Index: Body mass index is 22.27 kg/m??. BMI Category: Normal range (18.50- 24.99) Diet/ Nutrition Order Review: Dietary Orders (From admission, onward) Start Ordered 02/09/251844 Adult diet Regular Texture; No Added Salt (3-4 gm Sodium); Low Fat/Low Cholesterol Diet effective now Question Answer Comment Diet Type: Regular Texture Sodium Modifiers: No Added Salt (3-4 gm Sodium) Fat Modifiers: Low Fat/Low Cholesterol 02/09/25 1844 Diet Intakes: Percent Meals Eaten (%): 100 (02/10/25 1120) 100 [] 75-100% [] 50-75% [] 25-50% [] <25% [] NPO [] Unable to assess Intake/ Output Last 24 hrs: Intake/Output Summary (Last 24 hours) at 02/10/2025 1227 Last data filed at 02/10/2025 1120 Gross per 24 hour Intake 460 ml Output 400 ml Net 60 ml Oral Supplemental Intake/ Acceptance: just started [] 75-100% [] 50-75% [] 25-50% [] <25% [] NPO [] Unable to assess [place] Body Weight (64.2 kg) used to estimate nutrition needs Estimated Energy Needs: ~4939-4075 kcals daily. Method and weight used: 25-30 kcal/kg IBW Estimated Protein Needs: ~77-128 grams daily. Method and weight used: 1.2-2.0 gm/kg IBW Estimated Fluid Needs: ~6455-3749 ml daily. Method Used: 1 ml/kcal General Needs: Malnutrition Status: Malnutrition Present: Yes Severity of Protein Calorie Malnutrition: Severe NUTRITION DIAGNOSIS: Intake Diagnosis: Acute disease or injury related malnutrition (NI 5.2.3) related to poor oral intakes, dementia as evidenced by weight loss of 14.8 % . NUTRITION INTERVENTIONS: Coordination of nutrition care: spoke with RN Supplements (medical food, vitamin or mineral): will send ensure HP BID 4 0z will provide 175 kcal/10 g protein per serving. GOALS: Patient to meet calorie and protein needs for surgical healing NUTRITION MONITORING AND EVALUATION: Will monitor PO intakes, supplement acceptance, Weights, Nutrition Related Labs, POC & Follow. [x] Progressing toward goal [] Not progressing [] Progress toward goal declining [] Goal achieved Madelin Jackson RD.,LD. Clinical Dietitian [facility] [phone] 02/10/25 documented in this encounter H&P Notes * Shannon Gutierres MD - 02/10/2025 8:25 AM EDT Images from the original note were not included. [facility] [address] [facility] [id number] Hospital Medicine History & Physical Patient: Rolando Rothman Date of : 1935 Room: PCP: DION FRAZIER MD Admission date: 02/09/2025 2:39 PM Encounter date: 02/10/25 Hospital Day: 2 SUBJECTIVE Rolando Rothman is a 89 y.o. male who presents with left hip pain post fall. His son and are at bedside. He lives with his . He has dementia. Family reports he has fallen at least 3 times in the past month or so. He fell 4 days [address] and struck his head, no loc. Today he had an unwitnessed fall at home. Family had to get him up off the floor and had to basically carry him to the car. He has a walker at home but does not use it. He takes aspirin daily, up to 1000mg. Also on imdur. Has history of asthma. Family denies other significant history. He is becoming to much for them to manage at home with his dementia and frequent falling. No leukocytosis or anemia. EKG shows sinus rhythm. X-ray hip negative for fracture. CT of left hip shows nondisplaced comminutedfracture of greater trochanter. Discussed with orthopedic surgeon who agrees to be on consult. Allergies: Augmentin [amoxicillin-pot clavulanate], Eggshell membrane, Pineapple, and Sulfa (sulfonamide antibiotics) Prior to Admission medications Medication Sig Start Date End Date Taking? Authorizing Provider albuterol (PROVENTIL HFA;VENTOLIN HFA) 90 mcg/actuation inhaler Inhale 2 puffs every 6 (six) hours as needed for wheezing or shortness of breath. 05/07/18 Yes Maryann Souza, DO aspirin (EXTRA STRENGTH GAIL) 500 mg tablet Take 2 tablets (1,000 mg total) by mouth. 04/16/11 Yes Not In System Ref Prov donepeziL (ARICEPT) 10 mg tablet Take 1 tablet (10 mg total) by mouth nightly. Yes Not In System Ref Prov esomeprazole (NexIUM) 40 mg capsule Take 1 capsule (40 mg total) by mouth. 04/16/11 Yes Not In System Ref Prov fluticasone (FLONASE) 50 mcg/actuation nasal spray Administer 1 spray into each nostril in the morning. Yes Not In System Ref Prov fluticasone furoate-vilanteroL (BREO ELLIPTA) 50-25 mcg/dose blister with device Inhale. Yes Not InSystem Ref Prov fluticasone-salmeterol 113-14 mcg/actuation aerosol powdr breath activated Inhale 1 puff 2 (two) times a day. 05/07/18 Yes Maryann Souza, DO isosorbide mononitrate (IMDUR) 30 mg 24 hr tablet Take 0.5 tablets (15 mg total) by mouth. 10/24/15 Yes Not In System Ref Prov loratadine-pseudoephedrine (CLARITIN-D 24-hour) 10-240 mg per 24 hr tablet Take 1 tablet by mouth in the morning. Yes Not In System Ref Prov memantine (NAMENDA) 10 mg tablet Take 1 tablet (10 mg total) by mouth in the morning and 1 tablet (10 mg total) before bedtime. Yes Not In System Ref Prov mometasone (NASONEX) 50 mcg/actuation nasal spray Administer 2 sprays into each nostril in the morning. Yes Not In System Ref Prov sertraline (ZOLOFT) 50 mg tablet Take 1.5 tablets (75 mg total) by mouth in the morning. Yes Not InSystem Ref Prov albuterol (PROVENTIL HFA;VENTOLIN HFA) 90 mcg/actuation inhaler Inhale 2 puffs every 4 (four) hoursas needed for wheezing. 08/05/24 Rachel Tamayodour, DO benzonatate (TESSALON PERLES) 100 mg capsule Take 1 capsule (100 mg total) by mouth every 8 (eight)hours. 08/05/24 Rachel Tamayodovirgilio, DO tiotropium (SPIRIVA) 18 mcg per inhalation capsule Place 1 capsule into inhaler and inhale once daily. 08/01/16 Magdalena Goldberg MD Code Status: Full Code Past Medical History: Patient has a past medical history of Allergic rhinitis, Asthma, CAD (coronary artery disease), Carpal tunnel syndrome, Degenerative joint disease, Dementia ([facility]), Fractures, GERD (gastroesophageal reflux disease), OA (osteoarthritis), Pneumonia, Rotator cuff tear, and Visual impairment. Past Surgical History: Patient has a past surgical history that includes Rotator cuff repair; Arthroscopy shoulder / open shoulder; Colonoscopy; Cardiac catheterization; and Knee surgery. Family History: Patient's family history includes Arthritis in his mother; Dementia in his mother; Heart disease inhis father. Social History: Patient reports that he has quit smoking. He has never used smokeless tobacco. He reports current alcohol use of about 7.0 - 14.0 standard drinks of alcohol per week. He reports that he does not use drugs. Review of Systems Review of Systems Unable to perform ROS: Dementia Musculoskeletal: Positive for arthralgias and gait problem. Multiple falls Psychiatric/Behavioral: Positive for confusion (Baseline dementia). OBJECTIVE BP 165/68 Pulse 74 Temp 36.9 ??C (98.5 ??F) (Temporal) Resp 16 Ht 167.6 cm (5' 6 ) Wt 62.6 kg (138 lb) SpO2 96% BMI 22.27 kg/m?? Temp: [36.7 ??C (98 ??F)-36.9 ??C (98.5 ??F)] 36.9 ??C (98.5 ??F) Pulse: [57-82] 74 Resp: [6-25] 16 BP: (110-165)/(56-134) 165/68 SpO2: [96 %-100 %] 96 % O2 Device: None (Room air) O2 Flow Rate (L/min): [0 L/min] 0 L/min Intake/Output Summary (Last 24 hours) at 02/10/2025 0831 Last data filed at 02/10/2025 0648 Gross per 24 hour Intake 100 ml Output 400 ml Net -300 ml Physical Exam Physical Exam Vitals and nursing note reviewed. Constitutional: General: He is not in acute distress. HENT: Head: Normocephalic and atraumatic. Right Ear: External ear normal. Left Ear: External ear normal. Nose: Nose normal. Mouth/Throat: Mouth: Mucous membranes are moist. Pharynx: Oropharynx is clear. Eyes: Conjunctiva/sclera: Conjunctivae normal. Pupils: Pupils are equal, round, and reactive to light. Neck: Vascular: No carotid bruit or JVD. Cardiovascular: Rate and Rhythm: Normal rate and regular rhythm. Pulses: Normal pulses. Pulmonary: Effort: Pulmonary effort is normal. Breath sounds: Normal breath sounds. Abdominal: General: Bowel sounds are normal. Palpations: Abdomen is soft. Tenderness: There is no abdominal tenderness. Musculoskeletal: General: Tenderness (Tenderness to palpation to left hip) present. No swelling or deformity. Right lower leg: No edema. Left lower leg: No edema. Comments: Complaints of pain with movement Lymphadenopathy: Cervical: No cervical adenopathy. Skin: General: Skin is warm and dry. Capillary Refill: Capillary refill takes less than 2 seconds. Neurological: General: No focal deficit present. Mental Status: He is alert. Mental status is at baseline. He is confused. Comments: Pleasantly confused Psychiatric: Behavior: Behavior is cooperative. Cognition and Memory: Cognition is impaired. Memory is impaired. Medications Scheduled: donepeziL, 10 mg, oral, Nightly enoxaparin (LOVENOX) injection, 40 mg, subcutaneous, Daily isosorbide mononitrate, 15 mg, oral, Daily memantine, 10 mg, oral, BID sertraline, 75 mg, oral, Daily umeclidinium, 1 puff, inhalation, Daily Infusions: dextrose 5 % in water, 100 mL/hr sodium chloride 0.9 %, 20 mL/hr As Needed: acetaminophen benzonatate calcium gluconate calcium gluconate calcium gluconate dextrose dextrose 5 % in water dextrose 50 % in water (D50W) glucagon (human recombinant) HYDROcodone-acetaminophen ipratropium-albuteroL magnesium sulfate magnesium sulfate morphine injection ondansetron potassium chloride OR potassium chloride OR potassium chloride IV (Adult) sodium phosphate IV OR sodium phosphate IV - central line OR sod phos di, mono-K phos mono sodium chloride sodium chloride 0.9 % Allergies: Augmentin [amoxicillin-pot clavulanate], Eggshell membrane, Pineapple, and Sulfa (sulfonamide antibiotics) Labs Recent Results (from the past 24 hours) CBC auto differential Collection Time: 02/09/25 3:07 PM Result Value Ref Range WBC 5.4 4 - 11 x10E9/L RBC Count 4.36 4.1 - 5.7 X10E12/L Hemoglobin 13.5 13 - 17 g/dL Hematocrit 39.6 39 - 50 % MCV 91 80 - 100 fL MCH 31.0 27 - 34 pg MCHC 34.2 32 - 36 g/dL RDW 14.0 11.5 - 15 % Platelet Count 262 150 - 450 X10E9/L MPV 8.1 7 - 12 fL Neutrophils % 73.6 % Lymphocytes % 12.1 % Monocytes % 9.2 % Eosinophils % 2.4 % Basophils % 2.7 % Neutrophils Absolute (A) 4.0 1.5 - 6.6 10*3/uL Lymphocytes Absolute 0.7 (L) 1.0 - 3.5 10*3/uL Monocytes Absolute 0.5 0.0 - 0.9 10*3/uL Eosinophils Absolute 0.1 0.0 - 0.4 10*3/uL Basophils Absolute 0.1 0.0 - 0.2 10*3/uL Differential Type AUTOMATED DIFFERENTIAL ABO Rh Repeat Collection Time: 02/09/25 3:07 PM Result Value Ref Range ABO A RH Negative Comprehensive metabolic panel Collection Time: 02/09/25 3:08 PM Result Value Ref Range SODIUM 137 134 - 146 mmol/L POTASSIUM 3.5 3.5 - 5.0 mmol/L CHLORIDE 111 (H) 98 - 109 mmol/L CARBON DIOXIDE 22 22 - 32 mmol/L ANION GAP 4 (L) 5 - 15 mmol/L BLOOD UREA NITROGEN 21 5 - 27 mg/dL CREATININE 0.84 0.70 - 1.20 mg/dL GLUCOSE 124 (H) 65 - 99 mg/dL CALCIUM 8.3 (L) 8.5 - 10.5 mg/dL TOTAL PROTEIN 6.4 6.0 - 8.0 g/dL ALBUMIN 3.8 3.2 - 5.3 g/dL ALKALINE PHOSPHATASE 108 39 - 130 U/L AST 20 <=41 U/L ALT 19 <=40 U/L BILIRUBIN,TOTAL 0.2 (L) 0.3 - 1.2 mg/dL EGFR Non-Race Dependent 84 >=60 ml/min/1.73sq.m Troponin I, High Sensitivity Collection Time: 02/09/25 3:08 PM Narrative The following orders were created for panel order Troponin I, High Sensitivity. Procedure Abnormality Status --------- ------ Troponin I, High Sensiti...[[id number]] Normal Final result Troponin I, High Sensiti...[[id number]] Normal Final result Please view results for these tests on the individual orders. Magnesium Collection Time: 02/09/25 3:08 PM Result Value Ref Range MAGNESIUM 2.0 1.8 - 2.6 mg/dL Prealbumin Collection Time: 02/09/25 3:08 PM Result Value Ref Range PREALBUMIN 20 18 - 45 mg/dL Vitamin D 25 hydroxy Collection Time: 02/09/25 3:08 PM Result Value Ref Range VITAMIN D 25 HYD TOT 40.6 30.0 - 100.0 ng/mL Narrative Vitamin D status 25 OH Vitamin D Deficiency <20 ng/mL Insufficiency 20-29 ng/mL Sufficiency 30-100 ng/mL Toxicity >100 ng/mL NOTE: A pediatric reference range has not been established by the channel executive of this kit. The [place] [employer] recommends a Vitamin D level of = or >20ng/mL in infants and children. Troponin I, High Sensitivity 0 Hour Collection Time: 02/09/25 3:08 PM Result Value Ref Range TROPONIN I, HIGH SENSITIVITY 4 <21 ng/L Extra Tubes Collection Time: 02/09/25 3:08 PM Narrative The following orders were created for panel order Extra Tubes. Procedure Abnormality Status --------- ------ Light Blue Top[[id number]] Final result Jackson Top On Ice[[id number]] Final result Please view results for these tests on the individual orders. Light Blue Top Collection Time: 02/09/25 3:08 PM Result Value Ref Range Extra Tube Auto Resulted Jackson Top On Ice Collection Time: 02/09/25 3:08 PM Result Value Ref Range Extra Tube Auto Resulted Type and screen(includes indirect octavio) Collection Time: 02/09/25 3:15 PM Result Value Ref Range ABO A RH Negative Antibody Screen Negative Troponin I, High Sensitivity 1 Hour Collection Time: 02/09/25 4:11 PM Result Value Ref Range TROPONIN I, HIGH SENSITIVITY 4 <21 ng/L Comprehensive metabolic panel Collection Time: 02/10/25 4:25 AM Result Value Ref Range SODIUM 140 134 - 146 mmol/L POTASSIUM 3.5 3.5 - 5.0 mmol/L CHLORIDE 107 98 - 109 mmol/L CARBON DIOXIDE 24 22 - 32 mmol/L ANION GAP 9 5 - 15 mmol/L BLOOD UREA NITROGEN 22 5 - 27 mg/dL CREATININE 0.84 0.70 - 1.20 mg/dL GLUCOSE 104 (H) 65 - 99 mg/dL CALCIUM 8.2 (L) 8.5 - 10.5 mg/dL TOTAL PROTEIN 5.7 (L) 6.0 - 8.0 g/dL ALBUMIN 3.2 3.2 - 5.3 g/dL ALKALINE PHOSPHATASE 95 39 - 130 U/L AST 15 <=41 U/L ALT 15 <=40 U/L BILIRUBIN,TOTAL 0.7 0.3 - 1.2 mg/dL EGFR Non-Race Dependent 84 >=60 ml/min/1.73sq.m Magnesium Collection Time: 02/10/25 4:25 AM Result Value Ref Range MAGNESIUM 1.8 1.8 - 2.6 mg/dL CBC auto differential Collection Time: 02/10/25 4:25 AM Result Value Ref Range WBC 7.0 4 - 11 x10E9/L RBC Count 3.93 (L) 4.1 - 5.7 X10E12/L Hemoglobin 12.3 (L) 13 - 17 g/dL Hematocrit 35.8 (L) 39 - 50 % MCV 91 80 - 100 fL MCH 31.3 27 - 34 pg MCHC 34.3 32 - 36 g/dL RDW 13.7 11.5 - 15 % Platelet Count 208 150 - 450 X10E9/L MPV 8.2 7 - 12 fL Neutrophils % 75.3 % Lymphocytes % 11.1 % Monocytes % 10.3 % Eosinophils % 2.4 % Basophils % 0.9 % Neutrophils Absolute (A) 5.3 1.5 - 6.6 10*3/uL Lymphocytes Absolute 0.8 (L) 1.0 - 3.5 10*3/uL Monocytes Absolute 0.7 0.0 - 0.9 10*3/uL Eosinophils Absolute 0.2 0.0 - 0.4 10*3/uL Basophils Absolute 0.1 0.0 - 0.2 10*3/uL Differential Type AUTOMATED DIFFERENTIAL Extra Tubes Collection Time: 02/10/25 4:25 AM Narrative The following orders were created for panel order Extra Tubes. Procedure Abnormality Status --------- ------ Light Blue Top[[id number]] Final result Please view results for these tests on the individual orders. Light Blue Top Collection Time: 02/10/25 4:25 AM Result Value Ref Range Extra Tube Auto Resulted Radiology CT hip left without contrast Result Date: 02/09/2025 Narrative: CT HIP LT WO CONT Clinical history:fall, negative xray, unable to bear weight head pain Comparison: None. Findings: There is degenerative changes of the left hip with joint space loss and narrowing osteophyte formation. There is degenerative changes of the left sacroiliac joints with some ankylosis. There is a comminuted nondisplaced left greater trochanter fracture noted. There is mild soft tissue swelling and edema. There is a small bladder calculus noted. The prostate is enlarged.Impression: Comminuted nondisplaced fracture of the left greater trochanter. Degenerative changes. Small bladder calculus. All CT scans at this facility use dose modulation, iterative reconstruction,and/or weight based dosing when appropriate to reduce radiation dose to as low as reasonably achievable. Finalized by Mir Mccartney MD on 02/09/2025 4:08 PM X-ray femur left 2+ views Result Date: 02/09/2025 Narrative: XR FEMUR LT 2+ VIEWS Clinical history:fall hip pain Comparison: None. Impression: Degenerative changes left hip.) Plasty noted. No acute process fracture or dislocation. If the patient is unable to bear weight or if there is concern for nondisplaced hip fracture, consider correlation with MRI. Finalized by Mir Mccartney MD on 02/09/2025 3:46 PM X-ray hip left 2-3 views with or without pelvis Result Date: 02/09/2025 Narrative: XR HIP LT 2-3 VIEWS W OR WO PELVIS Clinical history:fall hip pain Comparison: None. Impression: Degenerative changes of the left hip with joint space loss and narrowing osteophyte formation. Degenerative change of the lumbar spine and right hip. No acute process fracture or dislocation. If the patient is unable to bear weight or if there is concern for nondisplaced hip fracture, consider correlation with MRI. Finalized by Mir Mccartney MD on 02/09/2025 3:45 PM X-ray chest 1 view Result Date: 02/09/2025 Narrative: XR CHEST 1 VW: 02/09/2025 3:19 PM Clinical: Injury with pain Supine frontal chest is compared with 08/05/2024. Stable calcified right hilar lymph nodes. Heart size is normal. No focal consolidation, large effusion, or pneumothorax. IMPRESSION: * No acute disease to limits of this single view exam. * Recommend a two-view chest or CT if symptoms persist. Finalized by Joaquin Ohara MD on 02/09/2025 3:[address] cervical spine without contrast Result Date: 02/09/2025 Narrative: HISTORY: An 89-year-old male with a history of fall from the standing and head injury. There is also a history of frequent falls. EXAM/TECHNIQUE: Multidetector spiral CT scan of cervical spine is performed. Multiplanar reconstruction images are obtained. All CT scans at this facility usedose modulation, iterative reconstruction, and/or weight based dosing when appropriate to reduce radiation dose to as low as reasonably achievable. COMPARISON: Comparison is made with the CT scan of the cervical spine of 07/30/2024. FINDINGS: There is no evidence of fracture through the cervical vert ebrae. The posterior elements are intact. Sagittal and coronal images demonstrate normal vertebral heights. There is no evidence of compression fractures or acute bony pathology. Facet joints are intact. The odontoid process is intact. There are disc degenerative changes in the cervical spine with p articularly involvement of the mid and lower cervical spine. Facet arthropathy seen at multiple levels. Minimal anterolisthesis is seen at C5-C6 and C7-T1. No significant prevertebral soft tissue abnormality is identified. 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 IMPRESSION: * No evidence of fracture or acute bony pathology. 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 * Minimal anterolisthesis at C5-C6 and C7-T1. Finalized by Raul Stone MD on 02/09/2025 3:[address] brain without contrast Result Date: 02/09/2025 Narrative: CLINICAL INFORMATION: fall head injury TECHNIQUE: CT BRAIN WO CONT CT images of the brain were obtained. There is cerebral atrophy and chronic ischemic changes. Remote posterior frontal right cortical infarct. No mass or midline shift. No acute hemorrhage identified. Paranasal sinuses and mastoid air cells appear clear. No osseous amount is seen. IMPRESSION: Atrophy and chronic ischemic changes. All CT scans at this facility use dose modulation, iterative reconstruction, and/or weight based dosing when appropriate to reduce radiation dose to as low as reasonably achievable. Finalized by Corby Eid MD on 02/09/2025 3:26 PM HOSPITAL PROBLEM LIST Principal Problem: Closed nondisplaced fracture of greater [place]chanter of [place] [place] Active Problems: Stage 3 severe COPD by GOLD classification [place] [place] [place] Pre-op exam Generalized weakness Frequent falls ASSESSMENT & PLAN Closed nondisplaced fracture: Orthopedic surgery consult. Pain management. Not a surgical candidate. Plan for PT at nursing facility COPD: No acute exacerbation. Continue inhalers. DuoNebs as needed. Dementia: Supportive care. Continue home medications. Generalized weakness/frequent falls: PT OT to evaluate. Preop exam: Chest x-ray without acute findings. EKG shows sinus rhythm with PAC. Reviewed last 2 EKGs which were all sinus rhythm. Low cardiac risk for surgery. Pba-bi-[id number] risk for surgery due to COPD. Monitor kidney function and electrolytes daily. Replace electrolytes per protocol Admission orders placed and home medications reconciled. DVT prophylaxis: EPC's and no pharmacological intervention secondary to possible surgery. PT/OT to evaluate and treat. DC planning: discharge to [facility] facility. Appreciate social work help with discharge planning. Sepsis suspected, no-not clinically evident at this time. KEMAL Shah, 02/10/2025 8:31 AM [facility] Internal Medicine 7AM-7PM & 7PM-7AM: EpicChat or page through On-Call Finder. Physician Attestation: I have reviewed the above note authored by the Advance Practice Provider (RICKY) including history, review of systems, physical examination, medical decision making and agree with the assessment & plan. I have personally performed a face to face diagnostic evaluation on this patient. I have reviewed all laboratory findings and imaging reports/films. I have independently evaluated the patient and repeated hunter portions of the physical exam. I agree with the RICKY plan as above, unless otherwise noted. SHANNON GUTIERRES MD documented in this encounter Consult Notes * Louis Baker MD - 02/10/2025 10:40 AM EDTAssociated Order(s): IP CONSULT TO ORTHOPEDIC SURGERY ORTHOPAEDIC HISTORY/CONSULT NOTE Date of Admission: 02/09/2025 2:39 PM Reason for Consult: Left femur fracture PCP: DION FARZIER MD Chief Complaint: Left hip pain History of Present Illness: Rolando Rothman is a 89 y.o. male who presents with acute onset ofleft hip pain. At baseline, patient lives with his . He has dementia. He has had multiple fallsrecently and yesterday, had an unwitnessed fall while at home. He was brought to the emergency department where he was found to have left femur fracture. Patient was admitted to Medical Service. I was consulted for fracture treatment. There has no pain at baseline, but notes pain in his left hip when he moves. He denies other source of acute pain or injury. PMH: Past Medical History: Diagnosis Date Allergic rhinitis Asthma CAD (coronary artery disease) Carpal tunnel syndrome Degenerative joint disease Dementia (CMS-HCC) Fractures GERD (gastroesophageal reflux disease) OA (osteoarthritis) Pneumonia Rotator cuff tear Visual impairment PSH: Past Surgical History: Procedure Laterality Date ARTHROSCOPY SHOULDER / OPEN SHOULDER CARDIAC CATHETERIZATION COLONOSCOPY KNEE SURGERY ROTATOR CUFF REPAIR Allergies: Allergies Allergen Reactions Augmentin [Amoxicillin-Pot Clavulanate] Eggshell Membrane Pineapple Other reaction(s): Other: See Comments Tickle in back of throat Sulfa (Sulfonamide Antibiotics) Home Meds: Medications Prior to Admission Medication Sig Dispense Refill Last Dose/Taking albuterol (PROVENTIL HFA;VENTOLIN HFA) 90 mcg/actuation inhaler Inhale 2 puffs every 6 (six) hours as needed for wheezing or shortness of breath. 18 g 11 02/09/2025 aspirin (EXTRA STRENGTH GAIL) 500 mg tablet Take 2 tablets (1,000 mg total) by mouth. 02/09/2025 donepeziL (ARICEPT) 10 mg tablet Take 1 tablet (10 mg total) by mouth nightly. 02/09/2025 esomeprazole (NexIUM) 40 mg capsule Take 1 capsule (40 mg total) by mouth. 02/09/2025 fluticasone (FLONASE) 50 mcg/actuation nasal spray Administer 1 spray into each nostril in the morning. 02/09/2025 fluticasone furoate-vilanteroL (BREO ELLIPTA) 50-25 mcg/dose blister with device Inhale. 02/09/2025 fluticasone-salmeterol 113-14 mcg/actuation aerosol powdr breath activated Inhale 1 puff 2 (two) times a day. 1 each 11 02/09/2025 isosorbide mononitrate (IMDUR) 30 mg 24 hr tablet Take 0.5 tablets (15 mg total) by mouth. 02/09/2025 loratadine-pseudoephedrine (CLARITIN-D 24-hour) 10-240 mg per 24 hr tablet Take 1 tablet by mouth in the morning. 02/09/2025 memantine (NAMENDA) 10 mg tablet Take 1 tablet (10 mg total) by mouth in the morning and 1 tablet (10 mg total) before bedtime. 02/09/2025 mometasone (NASONEX) 50 mcg/actuation nasal spray Administer 2 sprays into each nostril in the morning. 02/09/2025 sertraline (ZOLOFT) 50 mg tablet Take 1.5 tablets (75 mg total) by mouth in the morning. 02/09/2025 albuterol (PROVENTIL HFA;VENTOLIN HFA) 90 mcg/actuation inhaler Inhale 2 puffs every 4 (four) hoursas needed for wheezing. 18 g 0 benzonatate (TESSALON PERLES) 100 mg capsule Take 1 capsule (100 mg total) by mouth every 8 (eight)hours. 21 capsule 0 tiotropium (SPIRIVA) 18 mcg per inhalation capsule Place 1 capsule into inhaler and inhale once daily. 30 capsule 12 Social History: Social History Socioeconomic History Marital status: Spouse name: Not on file Number of children: Not on file Years of education: Not on file Highest education level: Not on file Occupational History Not on file Tobacco Use Smoking status: Former Smokeless tobacco: Never Substance and Sexual Activity Alcohol use: Yes Alcohol/week: 7.0 - 14.0 standard drinks of alcohol Types: 7 - 14 Standard drinks or equivalent per week Comment: Ritesh abdul nightly Drug use: No Sexual activity: Defer Other Topics Concern Not on file Social History Narrative Not on file Social Drivers of Health Financial Resource Strain: Not on file Food Insecurity: No Food Insecurity (02/09/2025) Hunger Screening Food Insecurity - Worry: Never True Food Insecurity - Inability: Never True Transportation Needs: No Transportation Needs (06/14/2024) Received from [facility] PR[facility] - Transportation Lack of Transportation (Medical): No Lack of Transportation (Non-Medical): No Physical Activity: Inactive (06/14/2024) Received from [facility] Exercise Vital Sign Days of Exercise per Week: 0 days Minutes of Exercise per Session: 0 min Stress: Stress Concern Present (06/14/2024) Received from [facility] [employer] [place] [employer] Occupational [employer] - Occupational Stress Questionnaire Feeling of Stress : To some extent Social Connections: Socially Isolated (06/14/2024) Received from [facility] Social Connection and Isolation Panel [NHANES] Frequency of Communication with Friends and Family: Once a week Frequency of Social Gatherings with Friends and Family: Once a week Attends Sikh Services: Never Active Member of Clubs or Organizations: No Attends Club or Organization Meetings: Not on file Marital Status: Interpersonal Safety: Unknown (06/14/2024) Received from [facility] Humiliation, Afraid, Rape, and Kick questionnaire Fear of Current or Ex-Partner: No Emotionally Abused: No Physically Abused: No Sexually Abused: Not on file Housing Instability: Low Risk (06/14/2024) Received from [facility] Housing Stability Vital Sign Unable to Pay for Housing in the Last Year: No Number of Times Moved in the Last Year: 0 Homeless in the Last Year: No OBJECTIVE: Physical Exam BP 165/68 Pulse 72 Temp 36.9 ??C (98.5 ??F) (Temporal) Resp 18 Ht 167.6 cm (5' 6 ) Wt 62.6 kg (138 lb) SpO2 97% BMI 22.27 kg/m?? O2 Device: None (Room air) General Appearance: Patient is an age-appropriate male in no acute distress. He appears comfortable. Neurologic: Patient was sleeping comfortably. He arouses to voice. He is oriented to person and place. No focal neurologic deficits. Extremities: Bilateral upper extremities: Skin is intact without erythema, ecchymosis or edema. Normal alignment. Normal range of motion without pain. Joints are stable. Nontender. 5/5 strength distally. Motor function intact. Sensation intact to light touch. Palpable radial pulses. Right lower extremity: Skin is intact without erythema, ecchymosis or edema. Normal alignment. Normal range of motion without pain. Joints are stable. Nontender. 5/5 strength distally. Motor functionintact. Sensation intact to light touch. Palpable pedal pulse. Left lower extremity: Skin is intact without erythema, ecchymosis or edema. Normal alignment. No pain with logroll of the left leg. Patient is noted to have pain at the left hip with larger range of motion. No pain with range of motion of the knee or ankle. Joints are stable.. Patient has exquisite tenderness of the lateral hip. Nontender distally. 5/5 strength distally. Motor function intact. Sensation intact to light touch. Palpable pedal pulse. Imaging CT hip left without contrast Result Date: 02/09/2025 Narrative: CT HIP LT WO CONT Clinical history:fall, negative xray, unable to bear weight head pain Comparison: None. Findings: There is degenerative changes of the left hip with joint space loss and narrowing osteophyte formation. There is degenerative changes of the left sacroiliac joints with some ankylosis. There is a comminuted nondisplaced left greater trochanter fracture noted. There is mild soft tissue swelling and edema. There is a small bladder calculus noted. The prostate is enlarged.Impression: Comminuted nondisplaced fracture of the left greater trochanter. Degenerative changes. Small bladder calculus. All CT scans at this facility use dose modulation, iterative reconstruction,and/or weight based dosing when appropriate to reduce radiation dose to as low as reasonably achievable. Finalized by Mir Mccartney MD on 02/09/2025 4:08 PM X-ray femur left 2+ views Result Date: 02/09/2025 Narrative: XR FEMUR LT 2+ VIEWS Clinical history:fall hip pain Comparison: None. Impression: Degenerative changes left hip.) Plasty noted. No acute process fracture or dislocation. If the patient is unable to bear weight or if there is concern for nondisplaced hip fracture, consider correlation with MRI. Finalized by Mir Mccartney MD on 02/09/2025 3:46 PM X-ray hip left 2-3 views with or without pelvis Result Date: 02/09/2025 Narrative: XR HIP LT 2-3 VIEWS W OR WO PELVIS Clinical history:fall hip pain Comparison: None. Impression: Degenerative changes of the left hip with joint space loss and narrowing osteophyte formation. Degenerative change of the lumbar spine and right hip. No acute process fracture or dislocation. If the patient is unable to bear weight or if there is concern for nondisplaced hip fracture, consider correlation with MRI. Finalized by Mir Mccartney MD on 02/09/2025 3:[address] cervical spine without contrast Result Date: 02/09/2025 Narrative: HISTORY: An 89-year-old male with a history of fall from the standing and head injury. There is also a history of frequent falls. EXAM/TECHNIQUE: Multidetector spiral CT scan of cervical spine is performed. Multiplanar reconstruction images are obtained. All CT scans at this facility usedose modulation, iterative reconstruction, and/or weight based dosing when appropriate to reduce radiation dose to as low as reasonably achievable. COMPARISON: Comparison is made with the CT scan of the cervical spine of 07/30/2024. FINDINGS: There is no evidence of fracture through the cervical vert ebrae. The posterior elements are intact. Sagittal and coronal images demonstrate normal vertebral heights. There is no evidence of compression fractures or acute bony pathology. Facet joints are intact. The odontoid process is intact. There are disc degenerative changes in the cervical spine with p articularly involvement of the mid and lower cervical spine. Facet arthropathy seen at multiple levels. Minimal anterolisthesis is seen at C5-C6 and C7-T1. No significant prevertebral soft tissue abnormality is identified. 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 IMPRESSION: * No evidence of fracture or acute bony pathology. 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 * Minimal anterolisthesis at C5-C6 and C7-T1. Finalized by Raul Stone MD on 02/09/2025 3:41 PM Lab Review Lab Results Component Value Date WBC 7.0 02/10/2025 HGB 12.3 (L) 02/10/2025 HCT 35.8 (L) 02/10/2025 MCV 91 02/10/2025 PLT 208 02/10/2025 Lab Results Component Value Date GLU 104 (H) 02/10/2025 CALCIUM 8.2 (L) 02/10/2025 SODIUM 140 02/10/2025 K 3.5 02/10/2025 CO2 24 02/10/2025 BUN 22 02/10/2025 CREATININE 0.84 02/10/2025 Assessment: Closed, nondisplaced, comminuted left greater trochanter fracture. Plan: - x-ray and CT of the left hip were independently reviewed. Patient is noted to have a comminuted fracture of the greater trochanter without displacement. There is no evidence of intertrochanteric involvement. - findings reviewed with the patient and his nurse. Given nondisplaced nature of the fracture, I recommended nonsurgical treatment. Patient was agreeable. - patient may bear weight as tolerated on the left leg. - PT/OT - pain control - patient may require placement [facility] facility pending PT/OT evaluation. - follow-up in 3-4 weeks. documented in this encounter Nursing Notes * Chelsea Ortiz RN - 02/11/2025 2:56 PM EDT Bedside report given to [facility] transport. Belongings sent with spouse and son. Taken to exit viastretcher * Chelsea Ortiz RN - 02/11/2025 1:42 PM EDT AVS printed and faxed to the [facility] [place]. Report called to saad at [facility]. * Chelsea Ortiz RN - 02/11/2025 1:22 PM EDT Pt aware of dc to [facility]. Transport arranged with [facility] transport, eta 1 hour. Family and pt informed. documented in this encounter ED Notes * Sherice Monsivais CNA - 02/09/2025 5:45 PM EDT 208, Pham, call to go up * KEMAL Wilkins - 02/09/2025 3:02 PM EDT Images from the original note were not included. [facility] - EMERGENCY Pt Name: Rolando Rothman Birthdate: 1935 Chief Complaint: Chief Complaint Patient presents with ??? Weakness - Generalized ??? Fall History of Present Illness: Patient here for reports of left hip pain post fall. His son and are at bedside. He lives withhis . He has dementia. Family reports he has fallen at least 3 times in the past month or so. He fell 4 days [address] and struck his head, no loc. Today he had an unwitnessed fall at home. Family had to get him up off the floor and had to basically carry him to the car. He has a walker at home but does not use it. He takes aspirin daily, up to 1000mg. Also on imdur. Has historyof asthma. Family denies other significant history. He is becoming to much for them to manage at home with his dementia and frequent falling Past Medical History: Past Medical History: Diagnosis Date ??? Allergic rhinitis ??? Asthma ??? CAD (coronary artery disease) ??? Carpal tunnel syndrome ??? Degenerative joint disease ??? Dementia (CMS-HCC) ??? GERD (gastroesophageal reflux disease) ??? OA (osteoarthritis) ??? Pneumonia ??? Rotator cuff tear Past Surgical History: Past Surgical History: Procedure Laterality Date ??? ARTHROSCOPY SHOULDER / OPEN SHOULDER ??? CARDIAC CATHETERIZATION ??? COLONOSCOPY ??? KNEE SURGERY ??? ROTATOR CUFF REPAIR Family History: Family History Problem Relation Age of Onset ??? Dementia Mother ??? Arthritis Mother ??? Heart disease Father Social History: Social History Socioeconomic History ??? Marital status: Tobacco Use ??? Smoking status: Former ??? Smokeless tobacco: Never Substance and Sexual Activity ??? Alcohol use: Yes Alcohol/week: 7.0 - 14.0 standard drinks of alcohol Types: 7 - 14 Standard drinks or equivalent per week ??? Drug use: No ??? Sexual activity: Defer Social Drivers of Health Food Insecurity: No Food Insecurity (02/09/2025) Hunger Screening ??? Food Insecurity - Worry: Never True ??? Food Insecurity - Inability: Never True Transportation Needs: No Transportation Needs (06/14/2024) Received from [facility] PRAPARE - Transportation ??? Lack of Transportation (Medical): No ??? Lack of Transportation (Non-Medical): No Physical Activity: Inactive (06/14/2024) Received from [facility] Exercise Vital Sign ??? Days of Exercise per Week: 0 days ??? Minutes of Exercise per Session: 0 min Stress: Stress Concern Present (06/14/2024) Received from [facility] [place] [facility] - Occupational Stress Questionnaire ??? Feeling of Stress : To some extent Social Connections: Socially Isolated (06/14/2024) Received from [facility] Social Connection and Isolation Panel [NHANES] ??? Frequency of Communication with Friends and Family: Once a week ??? Frequency of Social Gatherings with Friends and Family: Once a week ??? Attends Sikh Services: Never ??? Active Member of Clubs or Organizations: No ??? Marital Status: Interpersonal Safety: Unknown (06/14/2024) Received from [facility] Humiliation, Afraid, Rape, and Kick questionnaire ??? Fear of Current or Ex-Partner: No ??? Emotionally Abused: No ??? Physically Abused: No Housing Instability: Low Risk (06/14/2024) Received from [facility] Housing Stability Vital Sign ??? Unable to Pay for Housing in the Last Year: No ??? Number of Times Moved in the Last Year: 0 ??? Homeless in the Last Year: No Review of Systems: Review of Systems Physical Exam: ED Triage Vitals [02/09/25 1445] Temp Heart Rate Resp BP SpO2 36.9 ??C (98.5 ??F) 65 22 159/70 97 % Temp Source Heart Rate Source Patient Position BP Location FiO2 (%) Oral Monitor Semi-fowlers Right arm --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 assistance (spouse does IADLs, drives) Hearing / Speech / Vision Hearing: Other (Comment), Hard of hearing/hearing concerns (Lost his hearing aids) Speech: (perseverates, repeats same things over and over.) Current Vision: (Lost his glasses, wearing his 's readers.) Cognition Orientation Level: Oriented to person, Oriented to place Sensation Overall Sensation Status: (Sensation intact to light pressure dermatomes L1-S1 bilaterally) Bed Mobility Supine to Sit: Max assist (head of bed elevated, use of rail, cues to sequence, increased time to complete. Use of draw pad to support.) Other: Ends session in bedside chair with chair alarm intact, call button and bedside table within reach. Denies further needs. Transfers Sit to Stand: Min assist, Mod assist Stand to Sit: Min assist, Mod assist Bed to Chair: Max assist Other: Patient with poor ability to bear weight on L. LE. Uses more of a TTWB vs. NWB L. LE. Requires tactile and verbal cues for safe hand placement, assist for anterior weight shift, and significant assist to reach bedside chair. Patient with difficulty following commands do to perseverating on the x-ray tech in [place]. Gait Base of Support: Narrow Pattern: (Unable to take a step, MAX A to pivot to right to bedside chair with use of RW.) Balance Sitting Balance: Static: Fair, Good Sitting Balance: Dynamic: Fair Standing Balance: Static: Fair, Poor Standing Balance: Dynamic: Fair, Poor Posture Posture Evaluation: (Forward head posture noted.) RLE Assessment: (Functionally observed as at least 3+/5. Not able to follow commands for MMT.) LLE Assessment: (At least 3/5, moves hip/knee/ankle in bed but doesn't bear weight in standing and transferring.) Activity Tolerance Endurance: Tolerates 30 minutes activity with rest breaks Plan Physical Therapy Care Plan Physical Therapy Care Plan (Active) Template: PT - Physical Therapy Problem: Bed Mobility Dates: Start: 02/10/25 Disciplines: PT Goal: Patient will perform bed mobility with Moderate Assist Dates: Start: 02/10/25 Expected End: 02/19/25 Description: Goal Description: and use of hospital bed functions do to improving L. Hip AROM and L.LE strength/tolerance to WBAT. Disciplines: PT Problem: Gait Dates: Start: 02/10/25 Disciplines: PT Goal: Patient will perform gait with Moderate Assist Dates: Start: 02/10/25 Expected End: 02/19/25 Description: With__RW__,_6___feet Goal Description: to negotiate short distances to/from chair for meal times. Disciplines: PT Problem: Standing Balance Dates: Start: 02/10/25 Disciplines: PT Goal: Improve balance to fair Dates: Start: 02/10/25 Expected End: 02/19/25 Description: Static with bilateral UE support on walker to reduce fall risk during mobility training. Disciplines: PT Problem: Transfers Dates: Start: 02/10/25 Disciplines: PT Goal: Patient will perform transfers with Moderate Assist Dates: Start: 02/10/25 Expected End: 02/19/25 Description: Goal Description: and use of RW do to improving L. LE pain control and L. LE strength to reduce caregiver burden at discharge. Disciplines: PT Physical Therapy Care Plan (Resolved) There are no resolved problems. Principal Problem: Closed nondisplaced fracture of greater trochanter of left femur[place] Active Problems: Stage 3 severe COPD by GOLD classification [place] D[place] Pre-op exam Generalized weakness Frequent falls Severe protein-calorie malnutrition Cosigned by Shannon Gutierres MD at 02/10/2025 4:43 PM EDT * Discharge Planning Note - Elly Moon, FLIGHT OPERATIONS SPECIALIST - 02/10/2025 10:39 AM EDT DISCHARGE PLANNING NOTE 02/10/25 1033 Patient Information Initial Pre-Hospitalization Assessment Completed? Completed Primary Caregiver Family Accompanied by/Relationship lives with and 2 sons Support System Children;Family Members Discharge Planning Living Arrangements Adult Child(ashwin);Spouse/significant other Assistance Needed was indepent without a device, however was incontinent and wanders at home. Type of Residence Private residence Private Residence 2 story (has an elevator) Can patient reside on one level? No Residence Accessibility Steps into home Number of Steps 3 Home Care Services No Community Referrals / Resources Provided Agency on Aging;Health Services Income Information Income Information Retired/Pension/Social Security IP Hunger/Food Insecurity Screening Hunger Screening Complete? Yes Pt. Eligible for Food / Voucher No If Eligible: Received Food Box Not Offered to Patient Caregiver/Family Member Caregiver/Family Member Son - Rasheed Caregiver/Family Member Involved with Current Plan of Care Yes Caregiver/Family Member in Agreement with Current Plan of Care Yes Community Provider Referral Community Provider Referral Senior Services Services Requested Patient expects to be discharged to: SNF Does the patient wish to have family/friend/caregiver involved in their discharge planning? Yes Does the patient plan to return home to a community setting? No, patient to discharge to facility-based provider. See Discharge Disposition Discharge Disposition SNF Patient choice offered Yes List Provided Yes [facility]Port List Provided Nursing Home Facility Maintenance Helper met with patient and son introduced self, and explained role. Patient educated on safe discharge plan. Pt admitted 02/09/2025 with Pre-op exam [Z01.818] Generalized weakness [R53.1] Frequent falls [R29.6] Closed nondisplaced fracture of greater trochanter of left femur, [place] [place] [S72.115A] History of dementia [Z86.59] per chart review. Consults: Orthopaedics Discharge Barriers per Daily Transition Rounds and chart review: ortho consult, therapy evals Past Medical History: Diagnosis Date Allergic rhinitis Asthma CAD (coronary artery disease) Carpal tunnel syndrome Degenerative joint disease D[place] Fractures GERD (gastroesophageal reflux disease) OA (osteoarthritis) Pneumonia Rotator cuff tear Visual impairment Prior to admission patient was living with family and partial assistance. Medical equipment patientused prior to admission includes: Walker - Standard. Patient denies need for transportation/ food/ prescription medication assistance resources. PCP: DION FRAZIER MD Pharmacy:[facility] P[facility] and pharmacy confirmed with patient. SW offered to assist with follow up appointment arrangements; patient declines - states will self-schedule follow up appointments. DION FRAZIER MD added to Follow Up Providers for Summary of Care communication. Per patient self-report: Drug use: na Smoking: na ETOH Use: na Current discharge plan is: TBD - potential SNF Services Requested: Services Requested Patient expects to be discharged to:: (P) SNF Does the patient wish to have family/friend/caregiver involved in their discharge planning?: (P) Yes Does the patient plan to return home to a community setting?: (P) No, patient to discharge to facility-based provider. See Discharge Disposition Discharge Disposition: (P) SNF Patient choice offered: (P) Yes List Provided: (P) Yes [facility]Port List Provided: (P) Nursing Home Facility Will continue to follow as plan of care develops. SW discussed benefits and importance of medication compliance and follow ups. Per son patient care becoming too much for family and they are interested in options for assistance. Provided son with brochure for local AL and HHC/PP agencies. Also provided SNF list should patientneed SNF. Patient wanders at home, dicussed alarms for doors as safety precaution. Please feel free to reach out for any discharge planning questions. - ELEAZAR Bradford 02/10/25 10:40 AM 1:52PM - Spoke with son and received SNF choices of 1. [facility] 2. [facility] and 3. [facility]. Task to [facility] to send referrals. 2:36PM - [facility] has accepted and family agreeable to go there. Per RELIGION INSTRUCTOR can start auth today. Awaiting therapy evals. * Plan of Care - Chiqui Arrington RCP - 02/10/2025 8:44 AM EDT Problem: Inadequate Breathing Pattern Goal: Patient will achieve/maintain normal respiratory rate/effort Description: Patient's goal is: INTERVENTIONS 1. Assess and monitor respiratory rate, effort, breathing pattern, and oxygenation 2. Monitor patient for restlessness, anxiety, air hunger 3. Assess physical activity tolerance 4. Assess tobacco history; ask, advise, and refer as appropriate 5. Collaborate with interdisciplinary team and initiate plans/interventions as needed Outcome: Progressing Note: Evaluation of progress towards goal: Pt in no apparent distress this am. Lungs clear, pt tookMDI well. Will continue to monitor pt . documented in this encounter Plan of Treatment Scheduled Referrals Name Type Priority Associated Diagnoses Orde r Schedule Referral to Nursing Care Outpatient Referral Routine Closed nondisplaced fracture of greater trochanter of left femur, [place] [place] Ordered: 02/11/2025 Referral to Physical Therapy Outpatient Referral Routine Closed nondisplaced fracture of greater trochanter of left femur, [place] Ordered: 02/11/2025 Referral to Occupational Therapy Outpatient Referral Routine Closed nondisplaced fracture of greater trochanter of left femur, [place] Ordered: 02/11/2025 documented as of this encounter Procedures Procedure Name Priority Date/Time Associated Diagnosis Comments POTASSIUM Routine 02/11/2025 12:15 PM EDT EXTRA TUBES BLUE TOP Routine 02/11/2025 4:43 AM EDT EXTRA TUBES Routine 02/11/2025 4:43 AM EDT CBC WITH AUTO DIFFERENTIAL Routine 02/11/2025 4:43 AM EDT MAGNESIUM Routine 02/11/2025 4:43 AM EDT COMPREHENSIVE METABOLIC PANEL Routine 02/11/2025 4:43 AM EDT EXTRA TUBES BLUE TOP Routine 02/10/2025 4:25 AM EDT EXTRA TUBES Routine 02/10/2025 4:25 AM EDT CBC WITH AUTO DIFFERENTIAL Routine 02/10/2025 4:25 AM EDT MAGNESIUM Routine 02/10/2025 4:25 AM EDT COMPREHENSIVE METABOLIC PANEL Routine 02/10/2025 4:25 AM EDT TROP I, HIGH SENSITIVITY 1 HOUR STAT 02/09/2025 4:[address] HIP LT WO CONT STAT 02/09/2025 4:0 0 PM EDT XR FEMUR LT 2+ VIEWS STAT 02/09/2025 3:41 PM EDT XR HIP LT 2-3 VIEWS W OR WO PELVIS STAT 02/09/2025 3:40 PM EDT XR CHEST 1 VW STAT 02/09/2025 3:[address] CERVICAL SPINE WO CONT STAT 02/09/2025 3:[address] BRAIN WO CONT STAT 02/09/2025 3:24 PM EDT TYPE AND SCREEN STAT 02/09/2025 3:15 PM EDT ECG 12-LEAD STAT 02/09/2025 3:13 PM EDT TROPONIN I, HIGH SENSITIVITY 0 HOUR STAT 02/09/2025 3:08 PM EDT EXTRA TUBES JACKSON TOP ON ICE Routine 02/09/2025 3:08 PM EDT EXTRA TUBES BLUE TOP Routine 02/09/2025 3:08 PM EDT TROPONIN I, HIGH SENSITIVITY 0 HOUR STAT 02/09/2025 3:08 PM EDT EXTRA TUBES Routine 02/09/2025 3:08 PM EDT VITAMIN D 25 HYDROXY STAT 02/09/2025 3:08 PM EDT PREALBUMIN STAT 02/09/2025 3:08 PM EDT MAGNESIUM STAT 02/09/2025 3:08 PM EDT COMPREHENSIVE METABOLIC PANEL STAT 02/09/2025 3:08 PM EDT REPEATED ABORH Routine 02/09/2025 3:07 PM EDT CBC WITH AUTO DIFFERENTIAL STAT 02/09/2025 3:07 PM EDT documented in this encounter Results * Potassium (02/11/2025 12:15 PM EDT) POTASSIUM 4.0 3.5 - 5.0 mmol/L 02/11/2025 12:34 PM EDT [facility] Blood Venous blood / Unknown Venipuncture / Unknown 02/11/2025 12:15 PM EDT 02/11/2025 12:18 PM EDT us Shannon Gutierres MD LAB BLOOD ORDERABLES Final Res ult [facility] [address] [place] [address], * Light Blue Top (02/11/2025 4:43 AM EDT) Extra Tube Auto Resulted 02/11/2025 6:04 AM EDT [facility] Blood Venous blood / Unknown 02/11/2025 4:43 AM EDT 02/11/2025 5:56 AM EDT us Shannon Gutierres MD LAB BLOOD ORDERABLES Final Res ult [facility] [address] [place] [address], [place] * (ABNORMAL) CBC auto differential (02/11/2025 4:43 AM EDT) WBC 5.4 4 - 11 x10E9/L 02/11/2025 5:32 AM EDT [facility] RBC Count 3.53(L) 4.1 - 5.7 X10E12/L 02/11/2025 5:32 AM EDT [facility] Hemoglobin 11.1(L) 13 - 17 g/dL 02/11/2025 5:32 AM EDT [facility] Hematocrit 32.4(L) 39 - 50 % 02/11/2025 5:32 AM EDT [facility] MCV 92 80 - 100 fL 02/11/2025 5:32 AM EDT [facility] MCH 31.4 27 - 34 pg 02/11/2025 5:32 AM EDT [facility] MCHC 34.2 32 - 36 g/dL 02/11/2025 5:32 AM EDT [facility] RDW 14.3 11.5 - 15 % 02/11/2025 5:32 AM EDT [facility] Platelet Count 184 150 - 450 X10E9/L 02/11/2025 5:32 AM EDT [facility] MPV 8.3 7 - 12 fL 02/11/2025 5:32 AM EDT [facility] Neutrophils % 65.5 % 02/11/2025 5:32 AM EDT [facility] Lymphocytes % 17.6 % 02/11/2025 5:32 AM EDT [facility] Monocytes % 12.2 % 02/11/2025 5:32 AM EDT [facility] Eosinophils % 3.5 % 02/11/2025 5:32 AM EDT [facility] Basophils % 1.2 % 02/11/2025 5:32 AM EDT [facility] Neutrophils Absolute (A) 3.6 1.5 - 6.6 10*3/uL 02/11/2025 5:32 AM EDT [facility] Lymphocytes Absolute 1.0 1.0 - 3.5 10*3/uL 02/11/2025 5:32 AM EDT [facility] Monocytes Absolute 0.7 0.0 - 0.9 10*3/uL 02/11/2025 5:32 AM EDT [facility] Eosinophils Absolute 0.2 0.0 - 0.4 10*3/uL 02/11/2025 5:32 AM EDT [facility] Basophils Absolute 0.1 0.0 - 0.2 10*3/uL 02/11/2025 5:32 AM EDT [facility] Differential Type AUTOMATED DIFFERENTIAL 02/11/2025 5:32 AM EDT [facility] Blood Venous blood / Unknown Venipuncture / Unknown 02/11/2025 4:43 AM EDT 02/11/2025 5:15 AM EDT us Weston Cisneros PAVING MACHINE OPERATOR-RELIGION INSTRUCTOR LAB BLOOD ORDERABLES Fin al Result Performing Organization Address City/[facility]/ZIP Co de Phone Number [address] [place] [address], * Magnesium (02/11/2025 4:43 AM EDT) MAGNESIUM 1.9 1.8 - 2.6 mg/dL 02/11/2025 5:42 AM EDT [facility] Blood Venous blood / Unknown Venipuncture / Unknown 02/11/2025 4:43 AM EDT 02/11/2025 5:15 AM EDT us Weston Cisneros PAVING MACHINE OPERATOR-RELIGION INSTRUCTOR LAB BLOOD ORDERABLES Fin al Result [facility] [address] [place] [address], [place] * (ABNORMAL) Comprehensive metabolic panel (02/11/2025 4:43 AM EDT) SODIUM 138 134 - 146 mmol/L 02/11/2025 5:42 AM EDT [facility] POTASSIUM 3.4(L) 3.5 - 5.0 mmol/L 02/11/2025 5:42 AM EDT [facility] CHLORIDE 107 98 - 109 mmol/L 02/11/2025 5:42 AM EDT [facility] CARBON DIOXIDE 26 22 - 32 mmol/L 02/11/2025 5:42 AM EDT [facility] ANION GAP 5 5 - 15 mmol/L 02/11/2025 5:42 AM EDT [facility] BLOOD UREA NITROGEN 20 5 - 27 mg/dL 02/11/2025 5:42 AM EDT [facility] CREATININE 0.73 0.70 - 1.20 mg/dL 02/11/2025 5:42 AM EDT [facility] Comment:METHOD TRACEABLE TO IDMS STANDARD GLUCOSE 102(H) 65 - 99 mg/dL 02/11/2025 5:42 AM EDT [facility] CALCIUM 8.0(L) 8.5 - 10.5 mg/dL 02/11/2025 5:42 AM EDT [facility] TOTAL PROTEIN 5.4(L) 6.0 - 8.0 g/dL 02/11/2025 5:42 AM EDT [facility] ALBUMIN 3.0(L) 3.2 - 5.3 g/dL 02/11/2025 5:42 AM EDT [facility] ALKALINE PHOSPHATASE 84 39 - 130 U/L 02/11/2025 5:42 AM EDT [facility] AST 13 <=41 U/L 02/11/2025 5:42 AM EDT [facility] ALT 13 <=40 U/L 02/11/2025 5:42 AM EDT [facility] BILIRUBIN,TOTAL 0.8 0.3 - 1.2 mg/dL 02/11/2025 5:42 AM EDT [facility] EGFR Non-Race Dependent 88 >=60 ml/min/1.7 3sq.m 02/11/2025 5:42 AM EDT [facility] Comment: eGFR not reported due to non-numeric value for Creatinine. Reported eGFR is based on the CKD-EPI 2020 equation that does not use a race coefficient. Blood Venous blood / Unknown Venipuncture / Unknown 02/11/2025 4:43 AM EDT 02/11/2025 5:15 AM EDT us Weston Cisneros PAVING MACHINE OPERATOR-RELIGION INSTRUCTOR LAB BLOOD ORDERABLES Fin al Result Performing Organization Address [facility] Co de Phone Number [address] [place] [address], [place] * Light Blue Top (02/10/2025 4:25 AM EDT) Extra Tube Auto Resulted 02/10/2025 6:04 AM EDT [facility] Blood Venous blood / Unknown 02/10/2025 4:25 AM EDT 02/10/2025 5:14 AM EDT us Shannon Gutierres MD LAB BLOOD ORDERABLES Final Res ult Performing Organization Address City/[facility] Co de Phone Number [address] [place] [address], [place] * (ABNORMAL) CBC auto differential (02/10/2025 4:25 AM EDT) WBC 7.0 4 - 11 x10E9/L 02/10/2025 5:25 AM EDT [facility] RBC Count 3.93(L) 4.1 - 5.7 X10E12/L 02/10/2025 5:25 AM EDT [facility] Hemoglobin 12.3(L) 13 - 17 g/dL 02/10/2025 5:25 AM EDT [facility] Hematocrit 35.8(L) 39 - 50 % 02/10/2025 5:25 AM EDT [facility] MCV 91 80 - 100 fL 02/10/2025 5:25 AM EDT [facility] MCH 31.3 27 - 34 pg 02/10/2025 5:25 AM EDT [facility] MCHC 34.3 32 - 36 g/dL 02/10/2025 5:25 AM EDT [facility] RDW 13.7 11.5 - 15 % 02/10/2025 5:25 AM EDT [facility] Platelet Count 208 150 - 450 X10E9/L 02/10/2025 5:25 AM EDT [facility] MPV 8.2 7 - 12 fL 02/10/2025 5:25 AM EDT [facility] Neutrophils % 75.3 % 02/10/2025 5:25 AM EDT [facility] Lymphocytes % 11.1 % 02/10/2025 5:25 AM EDT [facility] Monocytes % 10.3 % 02/10/2025 5:25 AM EDT [facility] Eosinophils % 2.4 % 02/10/2025 5:25 AM EDT [facility] Basophils % 0.9 % 02/10/2025 5:25 AM EDT [facility] Neutrophils Absolute (A) 5.3 1.5 - 6.6 10*3/uL 02/10/2025 5:25 AM EDT [facility] Lymphocytes Absolute 0.8(L) 1.0 - 3.5 10*3/uL 02/10/2025 5:25 AM EDT [facility] Monocytes Absolute 0.7 0.0 - 0.9 10*3/uL 02/10/2025 5:25 AM EDT [facility] Eosinophils Absolute 0.2 0.0 - 0.4 10*3/uL 02/10/2025 5:25 AM EDT [facility] Basophils Absolute 0.1 0.0 - 0.2 10*3/uL 02/10/2025 5:25 AM EDT [facility] Differential Type AUTOMATED DIFFERENTIAL 02/10/2025 5:25 AM EDT [facility] Blood Venous blood / Unknown Venipuncture / Unknown 02/10/2025 4:25 AM EDT 02/10/2025 5:11 AM EDT Weston Cisneros PAVING MACHINE OPERATOR-RELIGION INSTRUCTOR LAB BLOOD ORDERABLES Fin al Result Performing Organization Address City/[facility]/ZIP Co de Phone Number [address] [place] [address], [place] * Magnesium (02/10/2025 4:25 AM EDT) MAGNESIUM 1.8 1.8 - 2.6 mg/dL 02/10/2025 5:36 AM EDT [facility] Blood Venous blood / Unknown Venipuncture / Unknown 02/10/2025 4:25 AM EDT 02/10/2025 5:11 AM EDT Weston Cisneros PAVING MACHINE OPERATOR-RELIGION INSTRUCTOR LAB BLOOD ORDERABLES Fin al Result Performing Organization Address City/[facility] Co de Phone Number [address] [place] [address], [place] * (ABNORMAL) Comprehensive metabolic panel (02/10/2025 4:25 AM EDT) SODIUM 140 134 - 146 mmol/L 02/10/2025 5:36 AM EDT [facility] POTASSIUM 3.5 3.5 - 5.0 mmol/L 02/10/2025 5:36 AM EDT [facility] CHLORIDE 107 98 - 109 mmol/L 02/10/2025 5:36 AM EDT [facility] CARBON DIOXIDE 24 22 - 32 mmol/L 02/10/2025 5:36 AM EDT [facility] ANION GAP 9 5 - 15 mmol/L 02/10/2025 5:36 AM EDT [facility] BLOOD UREA NITROGEN 22 5 - 27 mg/dL 02/10/2025 5:36 AM EDT [facility] CREATININE 0.84 0.70 - 1.20 mg/dL 02/10/2025 5:36 AM EDT [facility] Comment:METHOD TRACEABLE TO IDNE STANDARD GLUCOSE 104(H) 65 - 99 mg/dL 02/10/2025 5:36 AM EDT [facility] CALCIUM 8.2(L) 8.5 - 10.5 mg/dL 02/10/2025 5:36 AM EDT [facility] TOTAL PROTEIN 5.7(L) 6.0 - 8.0 g/dL 02/10/2025 5:36 AM EDT [facility] ALBUMIN 3.2 3.2 - 5.3 g/dL 02/10/2025 5:36 AM EDT [facility] ALKALINE PHOSPHATASE 95 39 - 130 U/L 02/10/2025 5:36 AM EDT [facility] AST 15 <=41 U/L 02/10/2025 5:36 AM EDT [facility] ALT 15 <=40 U/L 02/10/2025 5:36 AM EDT [facility] BILIRUBIN,TOTAL 0.7 0.3 - 1.2 mg/dL 02/10/2025 5:36 AM EDT [facility] EGFR Non-Race Dependent 84 >=60 ml/min/1.7 3sq.m 02/10/2025 5:36 AM EDT [facility] Comment: eGFR not reported due to non-numeric value for Creatinine. Reported eGFR is based on the CKD-EPI 2020 equation that does not use a race coefficient. Blood Venous blood / Unknown Venipuncture / Unknown 02/10/2025 4:25 AM EDT 02/10/2025 5:11 AM EDT Weston Cisneros PAVING MACHINE OPERATOR-RELIGION INSTRUCTOR LAB BLOOD ORDERABLES Fin al Result Performing Organization Address City/[facility]/ZIP Co de Phone Number [address] [place] [address], [place] * Troponin I, High Sensitivity 1 Hour (02/09/2025 4:11 PM EDT) TROPONIN I, HIGH SENSITIVITY 4 <21 ng/L 02/09/2025 4:40 PM EDT [facility] Blood Venous blood / Unknown Venipuncture / Unknown 02/09/2025 4:11 PM EDT 02/09/2025 4:13 PM EDT Anuradha Whitejunior PAVING MACHINE OPERATOR-RELIGION INSTRUCTOR LAB BLOOD ORDERABLES Final Result Performing Organization Address [facility] Co de Phone Number [address] [place] [address], [place] * CT hip left without contrast (02/09/2025 4:00 PM EDT) Anatomical Region Laterality Modality MSK, Lower Extremities, Hip, MSK Covera Left Computed Tomography 02/09/2025 4:06 PM EDT Narrative 02/09/2025 4:[address] HIP LT WO CONT Clinical history:fall, negative xray, unable to bear weight head pain Comparison: None. Findings: There is degenerative changes of the left hip with joint space loss and narrowing osteophyte formation. There is degenerative changes of the left sacroiliac joints with some ankylosis. There is a comminuted nondisplaced left greater trochanter fracture noted. There is mild soft tissue swelling and edema. There is a small bladder calculus noted. The prostate is enlarged. Impression: Comminuted nondisplaced fracture of the left greater trochanter. Degenerative changes. Small bladder calculus. All CT scans at this facility use dose modulation, iterative reconstruction, and/or weight based dosing when appropriate to reduce radiation dose to as low as reasonably achievable. Finalized by Mir Mccartney MD on 02/09/2025 4:08 PM Procedure Note Mir Mccartney MD - 02/09/2025 CT HIP LT WO CONT Clinical history:fall, negative xray, unable to bear weight head pain Comparison: None. Findings: There is degenerative changes of the left hip with joint space loss andnarrowing osteophyte formation. There is degenerative changes of the leftsacroiliac joints with some ankylosis. There is a comminuted nondisplacedleft greater trochanter fracture noted. There is mild soft tissue swelling and edema. There is a small bladder calculus noted. The prostate is enlarged. Impression: Comminuted nondisplaced fracture of the left greater trochanter. Degenerative changes. Small bladder calculus. All CT scans at this facility use dose modulation, iterativereconstruction, and/or weight based dosing when appropriate to reduceradiation dose to as low as reasonably achievable. Finalized by Mir Mccartney MD on 02/09/2025 4:08 PM Anuradha Holm PAVING MACHINE OPERATOR-RELIGION INSTRUCTOR IMG CT ORDERABLES Fin al Result * X-ray femur left 2+ views (02/09/2025 3:41 PM EDT) Anatomical Region Laterality Modality Lower Extremities, MSK, Femur Left Co mputed Radiography 02/09/2025 3:46 PM EDT Narrative 02/09/2025 3:46 PM EDT XR FEMUR LT 2+ VIEWS Clinical history:fall hip pain Comparison: None. Impression: Degenerative changes left hip.) Plasty noted. No acute process fracture or dislocation. If the patient is unable to bear weight or if there is concern for nondisplaced hip fracture, consider correlation with MRI. Finalized by Mir Mccartney MD on 02/09/2025 3:46 PM Procedure Note Mir Mccartney MD - 02/09/2025 XR FEMUR LT 2+ VIEWS Clinical history:fall hip pain Comparison: None. Impression: Degenerative changes left hip.) Plasty noted. No acute process fracture ordislocation. If the patient is unable to bear weight or if there is concern fornondisplaced hip fracture, consider correlation with MRI. Finalized by Mir Mccartney MD on 02/09/2025 3:46 PM Anuradha [facility] G ORDERABLES Final Result * X-ray hip left 2-3 views with or without pelvis (02/09/2025 3:40 PM EDT) Anatomical Region Laterality Modality Lower Extremities, MSK, Hip Left Comp uted Radiography 02/09/2025 3:44 PM EDT Narrative 02/09/2025 3:45 PM EDT XR HIP LT 2-3 VIEWS W OR WO PELVIS Clinical history:fall hip pain Comparison: None. Impression: Degenerative changes of the left hip with joint space loss and narrowing osteophyte formation. Degenerative change of the lumbar spine and right hip. No acute process fracture or dislocation. If the patient is unable to bear weight or if there is concern for nondisplaced hip fracture, consider correlation with MRI. Finalized by Mir Mccartney MD on 02/09/2025 3:45 PM Procedure Note Mir Mccartney MD - 02/09/2025 XR HIP LT 2-3 VIEWS W OR WO PELVIS Clinical history:fall hip pain Comparison: None. Impression: Degenerative changes of the left hip with joint space loss and narrowingosteophyte formation. Degenerative change of the lumbar spine and righthip. No acute process fracture or dislocation. If the patient is unable to bear weight or if there is concern fornondisplaced hip fracture, consider correlation with MRI. Finalized by Mir Mccartney MD on 02/09/2025 3:45 PM Anuradha [facility] ORDERABLES Final Result * X-ray chest 1 view (02/09/2025 3:39 PM EDT) Anatomical Region Laterality Modality Body, Chest N/A Computed Radiogr aphy 02/09/2025 3:41 PM EDT Narrative 02/09/2025 3:42 PM EDT XR CHEST 1 VW: 02/09/2025 3:19 PM Clinical: Injury with pain Supine frontal chest is compared with 08/05/2024. Stable calcified right hilar lymph nodes. Heart size is normal. No focal consolidation, large effusion, or pneumothorax. IMPRESSION: * No acute disease to limits of this single view exam. * Recommend a two-view chest or CT if symptoms persist. Finalized by Joaquin Ohara MD on 02/09/2025 3:42 PM Procedure Note Joaquin Ohara MD - 02/09/2025 XR CHEST 1 VW: 02/09/2025 3:19 PM Clinical: Injury with pain Supine frontal chest is compared with 08/05/2024. Stable calcified right hilar lymph nodes. Heart size is normal. No focal consolidation, large effusion, or pneumothorax. IMPRESSION: * No acute disease to limits of this single view exam. * Recommend a two-view chest or CT if symptoms persist. Finalized by Joaquin Ohara MD on 02/09/2025 3:42 PM Anuradha Holm PAVING MACHINE OPERATOR-RELIGION INSTRUCTOR IMG DIAGNOSTIC IMAGIN G ORDERABLES Final Result * CT cervical spine without contrast (02/09/2025 3:33 PM EDT) Anatomical Region Laterality Modality MSK, Neuro, Spine, C-spine, Spine Covera N/A Computed Tomography 02/09/2025 3:38 PM EDT Narrative 02/09/2025 3:41 PM EDT HISTORY: An 89-year-old male with a history of fall from the standing and head injury. There is also a history of frequent falls. EXAM/TECHNIQUE: Multidetector spiral CT scan of cervical spine is performed. Multiplanar reconstruction images are obtained. All CT scans at this facility use dose modulation, iterative reconstruction, and/or weight based dosing when appropriate to reduce radiation dose to as low as reasonably achievable. COMPARISON: Comparison is made with the CT scan of the cervical spine of 07/30/2024. FINDINGS: There is no evidence of fracture through the cervical vertebrae. The posterior elements are intact. Sagittal and coronal images demonstrate normal vertebral heights. There is no evidence of compression fractures or acute bony pathology. Facet joints are intact. The odontoid process is intact. There are disc degenerative changes in the cervical spine with particularly involvement of the mid and lower cervical spine. Facet arthropathy seen at multiple levels. Minimal anterolisthesis is seen at C5-C6 and C7-T1. No significant prevertebral soft tissue abnormality is identified. 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 IMPRESSION: * No evidence of fracture or acute bony pathology. 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 * Minimal anterolisthesis at C5-C6 and C7-T1. Finalized by Raul Stone MD on 02/09/2025 3:41 PM Procedure Note Raul Stone MD - 02/09/2025 HISTORY: An 89-year-old male with a history of fall from the standing andhead injury. There is also a history of frequent falls. EXAM/TECHNIQUE: Multidetector spiral CT scan of cervical spine isperformed. Multiplanar reconstruction images are obtained. All CT scans at this facility use dose modulation, iterativereconstruction, and/or weight based dosing when appropriate to reduceradiation dose to as low as reasonably achievable. COMPARISON: Comparison is made with the CT scan of the cervical spine of07/30/2024. FINDINGS: There is no evidence of fracture through the cervicalvertebrae. The posterior elements are intact. Sagittal and coronal images demonstrate normal vertebral heights. There isno evidence of compression fractures or acute bony pathology. Facetjoints are intact. The odontoid process is intact. There are disc degenerative changes in the cervical spine withparticularly involvement of the mid and lower cervical spine. Facetarthropathy seen at multiple levels. Minimal anterolisthesis is seen atC5-C6 and C7-T1. No significant prevertebral soft tissue abnormality is identified.Emphysematous changes in the upper lungs. IMPRESSION: * No evidence of fracture or acute bony pathology. * Diffuse degenerative arthritis in the cervical spine and facetarthropathy at multiple levels. * Minimal anterolisthesis at C5-C6 and C7-T1. Finalized by Raul Stone MD on 02/09/2025 3:41 PM [facility] ORDERABLES Fin al Result * CT brain without contrast (02/09/2025 3:24 PM EDT) Anatomical Region Laterality Modality Neuro, Head, Head and Neck, Neuro Covera N/A Computed Tomography 02/09/2025 3:25 PM EDT Narrative 02/09/2025 3:26 PM EDT CLINICAL INFORMATION: fall head injury TECHNIQUE: CT BRAIN WO CONT CT images of the brain were obtained. There is cerebral atrophy and chronic ischemic changes. Remote posterior frontal right cortical infarct. No mass or midline shift. No acute hemorrhage identified. Paranasal sinuses and mastoid air cells appear clear. No osseous amount is seen. IMPRESSION: Atrophy and chronic ischemic changes. All CT scans at this facility use dose modulation, iterative reconstruction, and/or weight based dosing when appropriate to reduce radiation dose to as low as reasonably achievable. Finalized by Corby Eid MD on 02/09/2025 3:26 PM Procedure Note Corby Eid MD - 02/09/2025 CLINICAL INFORMATION: fall head injury TECHNIQUE: CT BRAIN WO CONT CT images of the brain were obtained. There is cerebral atrophy andchronic ischemic changes. Remote posterior frontal right cortical infarct.No mass or midline shift. No acute hemorrhage identified. Paranasalsinuses and mastoid air cells appear clear. No osseous amount is seen. IMPRESSION: Atrophy and chronic ischemic changes. All CT scans at this facility use dose modulation, iterativereconstruction, and/or weight based dosing when appropriate to reduceradiation dose to as low as reasonably achievable. Finalized by Corby Eid MD on 02/09/2025 3:26 PM Anuradha Jerome Alta PAVING MACHINE [facility] ORDERABLES Fin al Result * Type and screen(includes indirect octavio) (02/09/2025 3:15 PM EDT) ABO A 02/09/2025 4:06 PM EDT [facility] RH Negative 02/09/2025 4:06 PM EDT [facility] Antibody Screen Negative 02/09/2025 4:06 PM EDT [facility] Blood Venous blood / Unknown Venipuncture / Unknown 02/09/2025 3:15 PM EDT 02/09/2025 3:20 PM EDT Anuradha Holm PAVING MACHINE OPERATOR-RELIGION INSTRUCTOR BLOOD BANK TEST ORDER HERMINIO Edited Result - Final Performing Organization Address City/[facility]/ZIP Co de Phone Number [facility] ÓSCAR Weinberg [address] [place] [address], [place] [address] [place] [address], [place] * ECG 12 lead (02/09/2025 3:13 PM EDT) 02/09/2025 3:13 PM EDT Narrative TRAC[facility] - 02/15/2025 5:54 PM EDT Anuradha Holm PAVING MACHINE OPERATOR-RELIGION INSTRUCTOR ECG ORDERABLES Final Result Performing Organization Address City/[facility]/ZIP Co de Phone Number [facility] * Jackson Top On Ice (02/09/2025 3:08 PM EDT) Extra Tube Auto Resulted 02/09/2025 5:01 PM EDT [facility] Blood Venous blood / Unknown 02/09/2025 3:08 PM EDT 02/09/2025 3:20 PM EDT Anuradha Holm PAVING MACHINE OPERATOR-RELIGION INSTRUCTOR LAB BLOOD ORDERABLES Final Result Performing Organization Address City/[facility]/ZIP Co de Phone Number [address] [place] [address], [place] * Light Blue Top (02/09/2025 3:08 PM EDT) Extra Tube Auto Resulted 02/09/2025 5:01 PM EDT [facility] Blood Venous blood / Unknown 02/09/2025 3:08 PM EDT 02/09/2025 3:20 PM EDT Anuradha Holm [facility] LAB BLOOD ORDERABLES Final Result Performing Organization Address City/[facility] Co de Phone Number [address] [address], [place] * Troponin I, High Sensitivity 0 Hour (02/09/2025 3:08 PM EDT) TROPONIN I, HIGH SENSITIVITY 4 <21 ng/L 02/09/2025 3:52 PM EDT [facility] Blood Venous blood / Unknown Venipuncture / Unknown 02/09/2025 3:08 PM EDT 02/09/2025 3:20 PM EDT Anuradha Holm [facility] LAB BLOOD ORDERABLES Final Result Performing Organization Address [facility] de Phone Number [address] [address], [place] * Vitamin D 25 hydroxy (02/09/2025 3:08 PM EDT) Pathologist [facility] VITAMIN D 25 HYD TOT 40.6 30.0 - 100.0 ng/mL 02/09/2025 10:48 PM EDT [facility] Blood Venous blood / Unknown Venipuncture / Unknown 02/09/2025 3:08 PM EDT 02/09/2025 3:20 PM EDT General acute hospital LABORATORY - 02/09/2025 10:48 PM EDT Vitamin D status 25 [place] Vitamin D Deficiency <20 ng/mL Insufficiency 20-29 ng/mL Sufficiency 30-100 ng/mL Toxicity >100 ng/mL NOTE: A pediatric reference range has not been established by the channel executive of this kit. The [place] [employer] recommends a Vitamin D level of = or >20ng/mL in infants and children. Anuradha Holm PAVING MACHINE OPERATOR-[facility] LAB BLOOD ORDERABLES Final Result [facility] [address] [place] [address], * Prealbumin (02/09/2025 3:08 PM EDT) PREALBUMIN 20 18 - 45 mg/dL 02/09/2025 10:25 PM EDT [facility] Blood Venous blood / Unknown Venipuncture / Unknown 02/09/2025 3:08 PM EDT 02/09/2025 3:20 PM EDT [facility] BLOOD ORDERABLES Final Result Performing Organization Address City/[facility]/ZIP Co de Phone Number [facility] [address] [place] [address], * Magnesium (02/09/2025 3:08 PM EDT) MAGNESIUM 2.0 1.8 - 2.6 mg/dL 02/09/2025 3:44 PM EDT [facility] Blood Venous blood / Unknown Venipuncture / Unknown 02/09/2025 3:08 PM EDT 02/09/2025 3:20 PM EDT [facility] LAB BLOOD ORDERABLES Final Result [facility] [address] [place] [address], [place] * (ABNORMAL) Comprehensive metabolic panel (02/09/2025 3:08 PM EDT) SODIUM 137 134 - 146 mmol/L 02/09/2025 3:44 PM EDT [facility] POTASSIUM 3.5 3.5 - 5.0 mmol/L 02/09/2025 3:44 PM EDT [facility] CHLORIDE 111(H) 98 - 109 mmol/L 02/09/2025 3:44 PM EDT [facility] CARBON DIOXIDE 22 22 - 32 mmol/L 02/09/2025 3:44 PM EDT [facility] ANION GAP 4(L) 5 - 15 mmol/L 02/09/2025 3:44 PM EDT [facility] BLOOD UREA NITROGEN 21 5 - 27 mg/dL 02/09/2025 3:44 PM EDT [facility] CREATININE 0.84 0.70 - 1.20 mg/dL 02/09/2025 3:44 PM EDT [facility] Comment:METHOD TRACEABLE TO IDNE STANDARD GLUCOSE 124(H) 65 - 99 mg/dL 02/09/2025 3:44 PM EDT [facility] CALCIUM 8.3(L) 8.5 - 10.5 mg/dL 02/09/2025 3:44 PM EDT [facility] TOTAL PROTEIN 6.4 6.0 - 8.0 g/dL 02/09/2025 3:44 PM EDT [facility] ALBUMIN 3.8 3.2 - 5.3 g/dL 02/09/2025 3:44 PM EDT [facility] ALKALINE PHOSPHATASE 108 39 - 130 U/L 02/09/2025 3:44 PM EDT [facility] AST 20 <=41 U/L 02/09/2025 3:44 PM EDT [facility] ALT 19 <=40 U/L 02/09/2025 3:44 PM EDT [facility] BILIRUBIN,TOTAL 0.2(L) 0.3 - 1.2 mg/dL 02/09/2025 3:44 PM EDT [facility] EGFR Non-Race Dependent 84 >=60 ml/min/1.7 3sq.m 02/09/2025 3:44 PM EDT [facility] Comment: eGFR not reported due to non-numeric value for Creatinine. Reported eGFR is based on the CKD-EPI 2020 equation that does not use a race coefficient. Blood Venous blood / Unknown Venipuncture / Unknown 02/09/2025 3:08 PM EDT 02/09/2025 3:20 PM EDT Anuradha Holm PAVING MACHINE OPERATOR-RELIGION INSTRUCTOR LAB BLOOD ORDERABLES Final Result [facility] [address] [place] [address] [place] [address], [place] * ABO Rh Repeat (02/09/2025 3:07 PM EDT) ABO A 02/09/2025 5:09 PM EDT [facility] RH Negative 02/09/2025 5:09 PM EDT [facility] Blood Venous blood / Unknown Venipuncture / Unknown 02/09/2025 3:07 PM EDT 02/09/2025 4:10 PM EDT Shazia Grace MD BLOOD BANK TEST ORDERABLES Final Result Performing Organization Address City/[facility]/ZIP Co de Phone Number [facility] [address] [place] [address] [place] [address], [address] [place] [address], [place] * (ABNORMAL) CBC auto differential (02/09/2025 3:07 PM EDT) WBC 5.4 4 - 11 x10E9/L 02/09/2025 3:30 PM EDT [facility] RBC Count 4.36 4.1 - 5.7 X10E12/L 02/09/2025 3:30 PM EDT [facility] Hemoglobin 13.5 13 - 17 g/dL 02/09/2025 3:30 PM EDT [facility] Hematocrit 39.6 39 - 50 % 02/09/2025 3:30 PM EDT [facility] MCV 91 80 - 100 fL 02/09/2025 3:30 PM EDT [facility] MCH 31.0 27 - 34 pg 02/09/2025 3:30 PM EDT [facility] MCHC 34.2 32 - 36 g/dL 02/09/2025 3:30 PM EDT [facility] RDW 14.0 11.5 - 15 % 02/09/2025 3:30 PM EDT [facility] Platelet Count 262 150 - 450 X10E9/L 02/09/2025 3:30 PM EDT [facility] MPV 8.1 7 - 12 fL 02/09/2025 3:30 PM EDT [facility] Neutrophils % 73.6 % 02/09/2025 3:30 PM EDT [facility] Lymphocytes % 12.1 % 02/09/2025 3:30 PM EDT [facility] Monocytes % 9.2 % 02/09/2025 3:30 PM EDT [facility] Eosinophils % 2.4 % 02/09/2025 3:30 PM EDT [facility] Basophils % 2.7 % 02/09/2025 3:30 PM EDT [facility] Neutrophils Absolute (A) 4.0 1.5 - 6.6 10*3/uL 02/09/2025 3:30 PM EDT [facility] Lymphocytes Absolute 0.7(L) 1.0 - 3.5 10*3/uL 02/09/2025 3:30 PM EDT [facility] Monocytes Absolute 0.5 0.0 - 0.9 10*3/uL 02/09/2025 3:30 PM EDT [facility] Eosinophils Absolute 0.1 0.0 - 0.4 10*3/uL 02/09/2025 3:30 PM EDT [facility] Basophils Absolute 0.1 0.0 - 0.2 10*3/uL 02/09/2025 3:30 PM EDT [facility] Differential Type AUTOMATED DIFFERENTIAL 02/09/2025 3:30 PM EDT [facility] Blood Venous blood / Unknown Venipuncture / Unknown 02/09/2025 3:07 PM EDT 02/09/2025 3:20 PM EDT us Anuradha Holm PAVING MACHINE OPERATOR-RELIGION INSTRUCTOR LAB BLOOD ORDERABLES Final Result [facility] [address] [place] [address], documented in this encounter Visit Diagnoses Diagnosis Closed nondisplaced fracture of greater trochanter of left femur, initial encounter ([facility] Primary Closed nondisplaced fracture of greater trochanter of left femur, [place] Frequent falls Generalized weakness History of dementia Stage 3 severe COPD by GOLD classification [place] D[place] [place] Other persistent mental disorders due to conditions classified elsewhere Pre-op exam Generalized weakness Frequent falls Stage 3 severe COPD by GOLD classification [place] [place] Severe protein-calorie malnutrition Other severe protein-calorie malnutrition documented in this encounter Admitting Diagnoses Diagnosis Closed nondisplaced fracture of greater trochanter of left femur, [place] [place] Pre-op exam Generalized weakness Frequent falls documented in this encounter Administered Medications Inactive Administered Medications - up to 3 most recent administrations Medication Order MAR Action Action Date Dose Rate Site donepeziL (ARICEPT) tablet 10 mg 10 mg, oral, Nightly, First dose on Brianna 02/10/25 at 2200, Look-alike/sound-alike medication - verify indication for use. Given 02/10/2025 8:45 PM EDT 10 mg enoxaparin (LOVENOX) syringe 40 mg 40 mg, subcutaneous, Daily, First dose on Brianna 02/10/25 at 0600, Look-alike/sound-alike medication - verify indication for use. Given 02/11/2025 6:08 AM EDT 40 mg Left Arm HYDROcodone-acetaminophen (NORCO) 5-325 mg per tablet 1 tablet 1 tablet, oral, Every 6 hours PRN, moderate pain - pain scale 4-6, severe pain - pain scale 7-10, Starting on Fri02/09/25 at 1844, Look-alike/sound-alike medication - verify indication for use. Given 02/10/2025 8:45 PM EDT 1 tablet Given 02/10/2025 9:58 AM EDT 1 tablet isosorbide mononitrate (IMDUR) 24 hr tablet 15 mg 15 mg, oral, Daily, First dose on Fri02/10/25 at 0900, Do not crush or chew. Given 02/11/2025 8:07 AM EDT 15 mg Given 02/10/2025 9:59 AM EDT 15 mg ketorolac (TORADOL) injection 15 mg 15 mg, intravenous, Once, On Fri02/09/25 at 1550, For 1 dose, Look-alike/sound-alike medication - verify indication for use. Duration of therapy is not to exceed 5 days. Maximum recommended dose + 120mg/24 hours. Given 02/09/2025 4:13 PM EDT 1 5 mg memantine (NAMENDA) tablet 10 mg 10 mg, oral, 2 times daily, First dose on Fri02/09/25 at 2100 Given 02/11/2025 8:07 AM EDT 10 mg Given 02/10/2025 8:45 PM EDT 10 mg Given 02/10/2025 9:59 AM EDT 10 mg potassium chloride (K-TAB,KLOR-CON) CR tablet 30-50 mEq 30-50 mEq, oral, As needed, Potassium Supplementation, Starting on Fri02/09/25 at 1844, Progress to oral potassium replacement when patient tolerating oral intake. If dose administered, recheck potassium level 4 hours after last dose. For potassium level 3.4 to 3.8 mmol/L and GFR 30 mL/min or greater=30 mEq. For potassium level 3.1 to 3.3 mmol/L and GFR 30 mL/min or greater=40 mEq. For potassium level 3 mmol/L or less and GFR 30 mL/min or greater=50 mEq. Do not crush or chew. potassium chloride (KAYCIEL) 20 mEq/15 mL solution 30-50 mEq 30-50 mEq, oral, As needed, Potassium Supplementation, Starting on Fri02/09/25 at 1844, Progress to oral potassium replacement when patient tolerating oral intake. If dose administered, recheck potassium level 4 hours after last dose. For potassium level 3.4 to 3.8 mmol/L and GFR 30 mL/min or greater=30 mEq. For potassium level 3.1 to 3.3 mmol/L and GFR 30 mL/min or greater=40 mEq. For potassium level 3 mmol/L or less and GFR 30 mL/min or greater=50 mEq. Must dilute before use - Mix in 3-8 ounces of water or juice before administration When administering in feeding tube, flush before and after per policy and monitor potassium levels Given 02/11/2025 6:08 AM EDT 30 mEq potassium chloride IVPB 10 mEq/100 mL in water (0.1 mEq/mL premix) 10 mEq, intravenous, at 100 mL/hr, Administer over 60 Minutes, As needed, POTASSIUM REPLACEMENT, Starting on Fri02/09/25 at 1844, IV if unable to use oral/enteral with the current dosing strategies Potassium level 3 mmol/L or less administer Potassium Chloride 50 mEq Potassium level 3.1 to 3.3 mmol/L administer Potassium Chloride 40 mEq Potassium level 3.4 to 3.8 mmol/L administer Potassium Chloride 30 mEq Use central line when applicable. Recheck potassium level 1 hour after total IVPB infusion complete, With each potassium result continue the replacement orders as needed VESICANT (YELLOW) Infuse each 10 mEq over a minimum of 1 hour. sertraline (ZOLOFT) tablet 75 mg 75 mg, oral, Daily, First dose on Brianna 02/10/25 at 0900, Look-alike/sound-alike medication - verify indication for use. Given 02/11/2025 8:07 AM EDT 75 mg Given 02/10/2025 9:58 AM EDT 75 mg sod phos di, mono-K phos mono (K-PHOS NEUTRAL) 250 mg tablet 2 tablet 2 tablet, oral, As needed, for phosphorus level 2.3 mg/dL or less., Starting on Fri02/09/25 at 1844, If dose administered, recheck phosphorus level 4 hours after last dose. Look-alike/sound-alike medication - verify indication for use. Give with a full glass of water. sodium phosphate 20 mmol in sodium chloride 0.9 % 100 mL IVPB 20 mmol, intravenous, at 26.7 mL/hr, Administer over 4 Hours, As needed, for phosphorus level 2.3 mg/dL or less., Starting on Fri02/09/25 at 1844, Administer over 4 hours via dedicated line (central line). If administered, recheck phosphorus level 4 hours after infusion complete. Infuse using central line access. sodium phosphate 20 mmol in sodium chloride 0.9 % 250 mL IVPB 20 mmol, intravenous, at 42.8 mL/hr, Administer over 6 Hours, As needed, for phosphorus level 2.3 mg/dL or less, Starting on Fri02/09/25 at 1844, Administer over 6 hours via dedicated line (peripheral line). If administered, recheck phosphorus level 4 hours after infusion complete. umeclidinium (INCRUSE ELLIPTA) 62.5 mcg/actuation inhaler 1 puff 1 puff, inhalation, Daily, First dose on Brianna 02/10/25 at 1000, Do not shake inhaler. Given 02/10/2025 8:31 AM EDT 1 puf f documented in this encounter Active and Recently Administered Medications Times are shown in EDT. Scheduled Medication Order 02/09/2025 02/10/2025 02/11/2025 donepeziL (ARICEPT) tablet 10 mg 10 mg, oral, Nightly, First dose on Brianna 02/10/25 at 2200, Look-alike/sound-alike medication - verify indication for use. 2044 (Given - Provider: Latasha Hanson, RENEE) enoxaparin (LOVENOX) syringe 40 mg 40 mg, subcutaneous, Daily, First dose on Brianna 02/10/25 at 0600, Look-alike/sound-alike medication - verify indication for use. 0600 (Hold - Provider: Elaine Turpin RN - Reason: Other - Comment: awaiting ortho consult for poss surgery) 06 (Given - Provider: Latasha Hanson RN) isosorbide mononitrate (IMDUR) 24 hr tablet 15 mg 15 mg, oral, Daily, First dose on Brianna 02/10/25 at 0900, Do not crush or chew. 0959 (Given - Provider: Will Mobley RN) 0807 (Given - Provider: Chelsea Ortiz RN) ketorolac (TORADOL) injection 15 mg (COMPLETED) 15 mg, intravenous, Once, On Fri02/09/25 at 1550, For 1 dose, Look-alike/sound-alike medication - verify indication for use. Duration of therapy is not to exceed 5 days. Maximum recommended dose + 120mg/24 hours. 1613 (Given - Provider: Ashlie Reynolds, RN) memantine (NAMENDA) tablet 10 mg 10 mg, oral, 2 times daily, First dose on Fri02/09/25 at 2100 2042 (Given - Provider: Elaine Turpin, RN) 0959 (Given - Provider: Will Mobley, RN)204 (Given - Provider: Latasha Hanson, RENEE) 0807 (Given - Provider: Chelsea Ortiz, RENEE) sertraline (ZOLOFT) tablet 75 mg 75 mg, oral, Daily, First dose on Fri02/10/25 at 0900, Look-alike/sound-alike medication - verify indication for use. 0958 (Given - Provider: Will Mobley RN) 0807 (Given - Provider: Chelsea Ortiz RN) umeclidinium (INCRUSE ELLIPTA) 62.5 mcg/actuation inhaler 1 puff 1 puff, inhalation, Daily, First dose on Fri02/10/25 at 1000, Do not shake inhaler. 0831 (Given - Provider: Chiqui Arrington RCP)1000 (Canceled Entry - Provider: Chiqui Arrington RCP) 1052 (Not Given - Provider: Karina Garcia RCP - Reason: Patient/family refused - Comment: pt wont wake up enought to take MDI; family at bedside) PRN Medication Order 02/09/2025 02/10/2025 02/11/2025 acetaminophen (TYLENOL) tablet 650 mg 650 mg, oral, Every 6 hours PRN, mild pain - pain scale 1-3, headaches, temperature greater than 38 C, Temperature greater than 38.3 C, Starting on Fri02/09/25 at 1844, [Warning: Total Acetaminophen not to exceed more than 4 grams (4000 mg) in 24 hours] benzonatate (TESSALON PERLES) capsule 100 mg 100 mg, oral, Every 8 hours PRN, cough, Starting on Fri02/09/25 at 1849, Do not crush, chew or dissolve. calcium gluconate 3,000 mg in sodium chloride 0.9 % 100 mL IVPB 3,000 mg, intravenous, at 43.3 mL/hr, Administer over 3 Hours, As needed, ionized calcium 3.5 to 3.9 mg/dL, Starting on Fri02/09/25 at 1844, IV Administration of calcium via a central or deep vein preferred. Avoid administration in small hand veins VESICANT (RED) calcium gluconate 4,000 mg in sodium chloride 0.9 % 250 mL IVPB 4,000 mg, intravenous, at 72.5 mL/hr, Administer over 4 Hours, As needed, ionized calcium 3.4 mg/dL or less, Starting on Fri02/09/25 at 1843, IV administration of calcium via a central or deep vein is preferred. Avoid administration in small hand veins. VESICANT (RED) calcium gluconate IVPB 2000 mg/100 mL (20 mg/mL premix) 2,000 mg, intravenous, at 50 mL/hr, Administer over 2 Hours, As needed, ionized calcium 4 to 4.3 mg/dL, Starting on Fri02/09/25 at 1844, IV Administration of calcium via a central or deep vein preferred. Avoid administration in small hand veins VESICANT (RED) dextrose (GLUTOSE) 40 % gel 15 g 15 g, oral, As needed, low blood sugar, blood glucose less than 70 mg/dL, Starting on Fri02/09/25 at 1843, If patient conscious and taking PO. If blood glucose is not greater than 70 mg/dL after initial treatment, repeat treatment. dextrose 5 % (D5W) infusion 100 mL/hr, intravenous, Continuous PRN, blood glucose less than 70 mg/dL, Starting on Fri02/09/25 at 1844, Use immediately following dextrose 50% or glucagon treatment for patients who are unconscious or NPO. Contact prescriber for additional orders. If blood glucose is not greater than 70 mg/dL after initial treatment, repeat treatment. dextrose 50 % in water (D50W) 50% solution 25 mL 25 mL, intravenous, As needed, low blood sugar, blood glucose less than 70 mg/dL and unconscious or NPO with IV access, Starting on Fri02/09/25 at 1844, Push over 1-3 minutes STAT. If conscious and not NPO, immediately follow with meal tray or high protein (7 grams) snack if tray not available. If NPO, initiate 5% dextrose in water at 100 mL/hr and contact prescriber for additional orders. If blood glucose is not greater than 70 mg/dL after initial treatment, repeat treatment. VESICANT (RED) Warning: HYPERTONIC solution. glucagon HCL injection 1 mg 1 mg, intramuscular, As needed, low blood sugar, blood glucose less than 70 mg/dL and unconscious or NPO without IV access., Starting on Fri02/09/25 at 1844, If conscious and not NPO, immediately follow with meal tray or high protein (7Grams) snack if tray not available. If NPO, initiate IV 5% Dextrose/Water at 100 mL/hr and contact prescriber for additional orders. If blood glucose is not greater than 70 mg/dL after initial treatment, repeat treatment. HYDROcodone-acetaminophen (NORCO) 5-325 mg per tablet 1 tablet 1 tablet, oral, Every 6 hours PRN, moderate pain - pain scale 4-6, severe pain - pain scale 7-10, Starting on Fri02/09/25 at 1844, Look-alike/sound-alike medication - verify indication for use. 957 (Given - Provider: Will Mobley, RENEE - Comment: for therapy)2044 (Given - Provider: Latasha Hanson RN) ipratropium-albuteroL (DUONEB) 0.5 mg-3 mg(2.5 mg base)/3 mL nebulizer solution 3 mL 3 mL, nebulization, Every 4 hours PRN, wheezing, shortness of breath, Starting on Fri02/09/25 at 1844, Implement INPATIENT/ED Bronchodilator Clinical Practice Guidelines? Yes magnesium sulfate IVPB 2000 mg/50 mL in iso-osmotic water (40 mg/mL premix) 2,000 mg, intravenous, at 25 mL/hr, Administer over 120 Minutes, As needed, Magnesium level 1.7 to 1.9 mg/dL, or Ionized Magnesium level 0.45 to 0.5 mmol/L., Starting on Fri02/09/25 at 1844, Recheck magnesium level 4 hours after infusion complete. With each magnesium result continue the replacement orders as needed. magnesium sulfate IVPB 4000 mg/100 mL in iso-osmotic water (40 mg/mL premix) 4,000 mg, intravenous, at 25 mL/hr, Administer over 240 Minutes, As needed, Magnesium level 1.6 mg/dL or less, or Ionized Magnesium level 0.44 mmol/L or less, Starting on Fri02/09/25 at 1844, Recheck magnesium level 4 hours after infusion complete. With each magnesium result continue the replacement orders as needed. morphine injection 2 mg 2 mg, intravenous, Every 4 hours PRN, severe pain - pain scale 7-10, moderate pain - pain scale 4-6, Breakthrough pain, Starting on Fri02/09/25 at 1844, Look-alike/sound-alike medication - verify indication for use. ondansetron (PF) (ZOFRAN) injection 4 mg 4 mg, intravenous, Every 6 hours PRN, nausea, vomiting, Starting on Fri02/09/25 at 1844, Intravenous administration preferred to be given over 2-5 minutes. potassium chloride (K-TAB,KLOR-CON) CR tablet 30-50 mEq(Linked Group 1) 30-50 mEq, oral, As needed, Potassium Supplementation, Starting on Fri02/09/25 at 1844, Progress to oral potassium replacement when patient tolerating oral intake. If dose administered, recheck potassium level 4 hours after last dose. For potassium level 3.4 to 3.8 mmol/L and GFR 30 mL/min or greater=30 mEq. For potassium level 3.1 to 3.3 mmol/L and GFR 30 mL/min or greater=40 mEq. For potassium level 3 mmol/L or less and GFR 30 mL/min or greater=50 mEq. Do not crush or chew. 0608 (See Alternativ e - Provider: Latasha Hanson RN) potassium chloride (KAYCIEL) 20 mEq/15 mL solution 30-50 mEq(Linked Group 1) 30-50 mEq, oral, As needed, Potassium Supplementation, Starting on Fri02/09/25 at 1844, Progress to oral potassium replacement when patient tolerating oral intake. If dose administered, recheck potassium level 4 hours after last dose. For potassium level 3.4 to 3.8 mmol/L and GFR 30 mL/min or greater=30 mEq. For potassium level 3.1 to 3.3 mmol/L and GFR 30 mL/min or greater=40 mEq. For potassium level 3 mmol/L or less and GFR 30 mL/min or greater=50 mEq. Must dilute before use - Mix in 3-8 ounces of water or juice before administration When administering in feeding tube, flush before and after per policy and monitor potassium levels 0608 (Given - Provid er: Latasha Hanson RN) potassium chloride IVPB 10 mEq/100 mL in water (0.1 mEq/mL premix)(Linked Group 1) 10 mEq, intravenous, at 100 mL/hr, Administer over 60 Minutes, As needed, POTASSIUM REPLACEMENT, Starting on Fri02/09/25 at 1844, IV if unable to use oral/enteral with the current dosing strategies Potassium level 3 mmol/L or less administer Potassium Chloride 50 mEq Potassium level 3.1 to 3.3 mmol/L administer Potassium Chloride 40 mEq Potassium level 3.4 to 3.8 mmol/L administer Potassium Chloride 30 mEq Use central line when applicable. Recheck potassium level 1 hour after total IVPB infusion complete, With each potassium result continue the replacement orders as needed VESICANT (YELLOW) Infuse each 10 mEq over a minimum of 1 hour. 0608 (See Alternativ e - Provider: Latasha Hanson RN) sod phos di, mono-K phos mono (K-PHOS NEUTRAL) 250 mg tablet 2 tablet(Linked Group 2) 2 tablet, oral, As needed, for phosphorus level 2.3 mg/dL or less., Starting on Fri02/09/25 at 1844, If dose administered, recheck phosphorus level 4 hours after last dose. Look-alike/sound-alike medication - verify indication for use. Give with a full glass of water. sodium chloride 0.9 % flush bag 25 mL, intravenous, at 100 mL/hr, Administer over 15 Minutes, As needed, line care, line care after IVPB administration, Starting on Fri02/09/25 at 1844 sodium chloride 0.9 % infusion 20 mL/hr, intravenous, Continuous PRN, to maintain patency of lines, Starting on Fri02/09/25 at 1844 sodium phosphate 20 mmol in sodium chloride 0.9 % 100 mL IVPB(Linked Group 2) 20 mmol, intravenous, at 26.7 mL/hr, Administer over 4 Hours, As needed, for phosphorus level 2.3 mg/dL or less., Starting on Fri02/09/25 at 1844, Administer over 4 hours via dedicated line (central line). If administered, recheck phosphorus level 4 hours after infusion complete. Infuse using central line access. sodium phosphate 20 mmol in sodium chloride 0.9 % 250 mL IVPB(Linked Group 2) 20 mmol, intravenous, at 42.8 mL/hr, Administer over 6 Hours, As needed, for phosphorus level 2.3 mg/dL or less, Starting on Fri02/09/25 at 1844, Administer over 6 hours via dedicated line (peripheral line). If administered, recheck phosphorus level 4 hours after infusion complete. Linked Groups Order Group 1: potassium chloride (K-TAB,KLOR-CON) CR tablet 30-50 mEqJump to med 30-50 mEq, oral, As needed, Potassium Supplementation, Starting on Fri02/09/25 at 1844, Progress to oral potassium replacement when patient tolerating oral intake. If dose administered, recheck potassium level 4 hours after last dose. For potassium level 3.4 to 3.8 mmol/L and GFR 30 mL/min or greater=30 mEq. For potassium level 3.1 to 3.3 mmol/L and GFR 30 mL/min or greater=40 mEq. For potassium level 3 mmol/L or less and GFR 30 mL/min or greater=50 mEq. Do not crush or chew. Or potassium chloride (KAYCIEL) 20 mEq/15 mL solution 30-50 mEqJump to med 30-50 mEq, oral, As needed, Potassium Supplementation, Starting on Fri02/09/25 at 1844, Progress to oral potassium replacement when patient tolerating oral intake. If dose administered, recheck potassium level 4 hours after last dose. For potassium level 3.4 to 3.8 mmol/L and GFR 30 mL/min or greater=30 mEq. For potassium level 3.1 to 3.3 mmol/L and GFR 30 mL/min or greater=40 mEq. For potassium level 3 mmol/L or less and GFR 30 mL/min or greater=50 mEq. Must dilute before use - Mix in 3-8 ounces of water or juice before administration When administering in feeding tube, flush before and after per policy and monitor potassium levels Or potassium chloride IVPB 10 mEq/100 mL in water (0.1 mEq/mL premix)Jump to med 10 mEq, intravenous, at 100 mL/hr, Administer over 60 Minutes, As needed, POTASSIUM REPLACEMENT, Starting on Fri02/09/25 at 1844, IV if unable to use oral/enteral with the current dosing strategies Potassium level 3 mmol/L or less administer Potassium Chloride 50 mEq Potassium level 3.1 to 3.3 mmol/L administer Potassium Chloride 40 mEq Potassium level 3.4 to 3.8 mmol/L administer Potassium Chloride 30 mEq Use central line when applicable. Recheck potassium level 1 hour after total IVPB infusion complete, With each potassium result continue the replacement orders as needed VESICANT (YELLOW) Infuse each 10 mEq over a minimum of 1 hour. Group 2: sodium phosphate 20 mmol in sodium chloride 0.9 % 250 mL IVPBJump to med 20 mmol, intravenous, at 42.8 mL/hr, Administer over 6 Hours, As needed, for phosphorus level 2.3 mg/dL or less, Starting on Fri02/09/25 at 1844, Administer over 6 hours via dedicated line (peripheral line). If administered, recheck phosphorus level 4 hours after infusion complete. Or sodium phosphate 20 mmol in sodium chloride 0.9 % 100 mL IVPBJump to med 20 mmol, intravenous, at 26.7 mL/hr, Administer over 4 Hours, As needed, for phosphorus level 2.3 mg/dL or less., Starting on Fri02/09/25 at 1844, Administer over 4 hours via dedicated line (central line). If administered, recheck phosphorus level 4 hours after infusion complete. Infuse using central line access. Or sod phos di, mono-K phos mono (K-PHOS NEUTRAL) 250 mg tablet 2 tabletJump to med 2 tablet, oral, As needed, for phosphorus level 2.3 mg/dL or less., Starting on Fri02/09/25 at 1844, If dose administered, recheck phosphorus level 4 hours after last dose. Look-alike/sound-alike medication - verify indication for use. Give with a full glass of water. documented in this encounter Care Teams Umbrella Mender Relationship Specialty Start Date End Date Dion Frazier MD [address] [place] [id number] PCP - General Family Medicine 7/30/25 documented as of this encounter
--- NOTE | 2025-02-23 20:50 | XR_ITS ---
The [address] [address] Patient Name: DERRICK MONAE MRN: [id number] date: 1935 Sex: M Assigned Patient Location: ED.MAIN Current Patient Location: ED.MAIN Accession/Order Number: [id number] Exam Date: 02/23/2025 21:31 Report Date: 02/23/2025 21:37 At the request of: CADE ÁLVAREZ Procedure: XR hip JORJE 2 views both hips HISTORY: Acute left hip pain. History of left hip fracture No comparison Adequate alignment. No acute displaced fracture. No significant degeneration. Irregularity of the left greater trochanter likely related to prior fracture XR/XR hip JORJE IMPRESSION: No acute displaced fracture. Remote appearing left greater trochanter fracture, consistent with patient's history. Impression dictated by: Tim Portillo M.D. 02/23/2025 9:37 PM Dictation Location: [place] [address] Electronically authenticated by: [id number] Y Date: 02/23/2025 21:37
[2025-02-23 20:55] VITALS: BP 127/76; PULSE 84; TEMP 36.7; O2SAT 99; BMI 29.9
--- OUTSIDE RECORDS SUMMARY | 2025-02-23 20:59 | XMS_ITS ---
Author Organization [facility] Address [address] [place] [address] Care Team Providers Care Executive Coordinator Name Role Phone Shaikh YASMANI Franklin Unavailable [phone] Dion Donovan MD Primary Care Provider [phone] Javid Marie MA Unavailable [phone] Chronic Care Management (CCM) Status:Enrolled (Active) Start date:06/04/2024 Enrollment date:06/14/2024 Enrollment reason:Identified as high-risk Overview 06/14/24, 1:57 PM - Javid Marie MA- Patient gives verbal consent to be enrolled in CCM Program and understands there could be a bill for this service. Case Team Name Relationship Phone Javdi Marie MA(Responsible Staff) [phone] Continued Care and Services Coordination
--- OUTSIDE RECORDS SUMMARY | 2025-02-23 20:59 | XMS_ITS | Encounter Summary ---
Author Organization [facility] Address [address] [place] [address] Care Team Providers Care Submarine Advisory Team Watch Officer Name Role Phone Shaikh YASMANI Franklin Unavailable [phone] Dion Donovan MD Primary Care Provider [phone] Ashlie Elizondo NP Unavailable [phone] Javid Marie MA Unavailable [phone] Encounter Details Date Type Department Care Team (Late Contact Info) Description 05/27/2024 Orders Only [facility] [address] [place] [address] Social History Tobacco Use Types Packs/Day Years Used Date Smoking Tobacco: Never Passive Smoke Exposure: Never Smokeless Tobacco: Never Alcohol Use Standard Drinks/Week Comments Yes 14 (1 standard drink = 0.6 oz pu re alcohol) caffeine: 1-2 cups per day AUDIT-C Answer Date Recorded Q1: How often do you have a drink containing alcohol? 4 or more times a week 06/16/2023 Q2: How many drinks containi ng alcohol do you have on a typical day when you are drinking? 1 or 2 3 Frequency of Binge Drinking Not on file 10/2022 PHQ-2 Answer Date Recorded Patient Health Questionnaire-2 Score 0 12/30/2023 Sex and Gender Information Value Date Recorded Sex Assigned at Not on file Legal Sex Male 8:35 PM EDT Gender Identity Not on file Sexual Orientation Not on file documented as of this encounter Plan of Treatment Upcoming Encounters Date Type Department Care Team (Late Contact Info) Description 06/20/2025 1:30 PM EST Office Visit [facility] [address] [place] [address] Dion Donovan MD [address] [place] [phone] documented as of this encounter Procedures Procedure Name Priority Date/Time Associated Diagnosis Comments ECG 12-LEAD Routine 05/27/2024 12:54 PM EST documented in this encounter Results * ECG 12 lead (05/27/2024 12:54 PM EST) [facility] ECG ORDERABLES Final Result documented in this encounter Visit Diagnoses Not on filedocumented in this encounter Additional Health Concerns Assessment Noted Time PHQ-9 Depression Total Score: 0 06/30/20 23 1:00 PM EST documented as of this encounter Care Teams Submarine Advisory Team Watch Officer Relationship Specialty Start Date End Date Shaikh Franklin MD [address] [place] [phone] PCP - Johan VASQUEZ 07/14/23 Dion Donovan MD [address] [place] [phone] PCP - General Family Medicine 04/07/24 Ashlie Elizondo NP [address] [place] [address] Nurse Practitioner Family Medicine 04/07/24 09/13/24 Javid Marie MA [address] [place] [address] Family Medicine 06/04/24 documented as of this encounter
--- OUTSIDE RECORDS SUMMARY | 2025-02-23 21:00 | XMS_ITS | Encounter Summary ---
Author Organization [facility] Address [address] [place] [address] Care Team Providers Care Fire Official Name Role Phone Unavailable Primary Care Provider Unavailabl e Source Comments In the event this information is protected by the Federal Confidentiality of Alcohol and Drug AbusePatient Records regulations: The Federal rules restrict any use of the information to criminally investigate or prosecute any alcohol or drug abuse patient.[facility] Encounter Details Date Type Department Care Team (Late st Contact Info) Description 10/08/2024 Get Medical Advice Neurology [address] [address] Esme Arevalo PA-C [address] [place] [address] Handicap Placard Social History Tobacco Use Types Packs/Day Years Used Date Smoking Tobacco: Former Comments:He msoked 1-2 PPd x 25-30 years, quit 20-25 years ago Alcohol Use Standard Drinks/Week Comments Yes 0 (1 standard drink = 0.6 oz pur e alcohol) He drinks 2 beers daily Area Deprivation Index Answer Date Vimal rded National Score (1-100), lower number is lower ri sk 65 01/23/2024 State Score (1-10), lower number is lower risk 5 01/23/2024 Data from: https://www.neighborhoodatlas.medicine.[facility].edu/. Last address used for calculation [address] 01/23/2024 Sex and Gender Information Value Date Recorded Sex Assigned at Not on file Legal Sex Male 10:00 AM EST Gender Identity Not on file Sexual Orientation Not on file documented as of this encounter Miscellaneous Notes * Telephone Encounter - Ac Zambrano - 10/08/2024 2:42 PM EDT 10/08/24 ADRIÁN Vaughn! I uploaded the order into docSitestargn for Esme to add a signature to Thank you! -IN documented in this encounter Plan of Treatment Not on file documented as of this encounter Visit Diagnoses Not on filedocumented in this encounter
--- OUTSIDE RECORDS SUMMARY | 2025-02-23 21:00 | XMS_ITS | Clinical Summary ---
Author Organization [employer] tem Address [id number] [address] [place] [address] Care Team Providers Care Meat Inspector Name Role Phone Dion Donovan MD Primary Care Provider [phone] Allergies Active Allergy Reactions Criticality Noted Date Comments Amoxicillin-Pot Clavulanate 10/29/19 17 Eggshell Membrane 10/28/2016 Pineapple 11/01/2016 Other reaction(s): Other: See Comments Tickle in back of throat Sulfa (Sulfonamide Antibiotics) 10/28/2016 Medications tiotropium (SPIRIVA) 18 mcg per inhalation capsule Place 1 capsule into inhaler and inhale once daily. 30 capsule 12 08/01/19 17 Active esomeprazole (NexIUM) 40 mg capsule Take 1 capsule (40 mg total) by mouth. 04/16/20 11 Active isosorbide mononitrate (IMDUR) 30 mg 24 hr tablet Take 0.5 tablets (15 mg total) by mouth. 10/24/19 16 Active loratadine-pseudo ephedrine (CLARITIN-D 24-hour) 10-240 mg per 24 hr tablet Take 1 tablet by mouth in the morning. Active fluticasone-salme terol 113-14 mcg/actuation aerosol powdr breath activatedIndicati ons:Stage 3 severe COPD by GOLD classification ([facility]),Moderat e persistent asthma, unspecified whether complicated Inhale 1 puff 2 (two) times a day. 1 each 11 05/07/20 18 Active albuterol (PROVENTIL HFA;VENTOLIN HFA) 90 mcg/actuation inhalerIndication s:Bronchitis Inhale 2 puffs every 4 (four) hours as needed for wheezing. 18 g 08/05/19 25 Active benzonatate (TESSALON PERLES) 100 mg capsule Take 1 capsule (100 mg total) by mouth every 8 (eight) hours. 21 capsule 08/05/19 25 Active sertraline (ZOLOFT) 50 mg tablet Take 1.5 tablets (75 mg total) by mouth in the morning. Active memantine (NAMENDA) 10 mg tablet Take 1 tablet (10 mg total) by mouth in the morning and 1 tablet (10 mg total) before bedtime. Active donepeziL (ARICEPT) 10 mg tablet Take 1 tablet (10 mg total) by mouth nightly. Active mometasone (NASONEX) 50 mcg/actuation nasal spray Administer 2 sprays into each nostril in the morning. Active acetaminophen (TYLENOL) 325 mg tablet Take 2 tablets (650 mg total) by mouth every 6 (six) hours as needed for fever or headaches. 02/12/20 25 Active ipratropium-albut Taylor (DUONEB) 0.5 mg-3 mg(2.5 mg base)/3 mL nebulizerIndicati ons:Stage 3 severe COPD by GOLD classification ([facility]) Inhale 3 mL by nebulization every 4 (four) hours as needed for wheezing or shortness of breath. 02/12/20 25 Active aspirin (EXTRA STRENGTH GAIL) 500 mg tablet Take 2 tablets (1,000 mg total) by mouth. 04/16/20 11 025 Discontinu ed(Stop Taking at Discharge) fluticasone (FLONASE) 50 mcg/actuation nasal spray Administer 1 spray into each nostril in the morning. 025 Discontinu ed(Stop Taking at Discharge) albuterol (PROVENTIL HFA;VENTOLIN HFA) 90 mcg/actuation inhalerIndication s:Stage 3 severe COPD by GOLD classification ([facility]) Inhale 2 puffs every 6 (six) hours as needed for wheezing or shortness of breath. 18 g 11 05/07/20 18 025 Discontinu ed(Stop Taking at Discharge) fluticasone furoate-vilantero L (BREO ELLIPTA) 50-25 mcg/dose blister with device Inhale. 025 Discontinu ed(Stop Taking at Discharge) HYDROcodone-aceta minophen (NORCO) 5-325 mg per tabletIndications :Closed nondisplaced fracture of greater trochanter of left femur, initial encounter ([facility]) Take 1 tablet by mouth every 6 (six) hours as needed for pain for up to 7 days. 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) (Primary Dx); Frequent falls; Generalized weakness; History of dementia; Stage 3 severe COPD by GOLD classification ([facility]) Discharge Disposition: Intermediate Facility-Medicare Cert 02/09/2025 Travel from Last 3 Months Immunizations Immunization Administration Dates Next Due COVID-19, mRNA, LNP-S, PF, 100mcg/0.5mL Dose 02/2021,09/21/2020 Family History Medical History Relation Name Comments Heart disease Father Arthritis Mother Dementia Mother Relation Name Status Comments Father Mother Social History Tobacco Use Types Packs/Day Years [...] Orientation Straight 02/09/2025 6: 37 PM EDT Last Filed Vital Signs Vital Sign Reading [...] Mass Index 22.85 02/09/2025 6:30 PM EDT Plan of Treatment Health Maintenance Due Date Last Done Comments Depression Screening 1947 DTaP,Tdap and Td Vaccines (1 - Tdap) 1956 Zoster (Shingles) Vaccine (1 of 2) 1987 Fall Risk Screening 2002 COVID-19 Vaccine (6 2023-2 5 season) 2024 05/17/2022, 01/08/2022, 05/14/2021, Additional history exists Influenza Vaccine 03/14/2025 06/24/2024, , 07/30/2021, Additional history exists Tobacco Screening 02/09/2026 02/09/2025 Medical Devices Not on file Procedures Procedure Name Priority Date/Time Associated Diagnosis [...] ECG 12-LEAD STAT 02/09/2025 3:13 PM EDT EXTRA TUBES JACKSON TOP ON ICE Routine 02/09/2025 3:08 PM EDT EXTRA TUBES BLUE TOP Routine 02/09/2025 3:08 PM EDT EXTRA TUBES Routine 02/09/2025 3:08 PM EDT TROPONIN I, HIGH SENSITIVITY 0 HOUR STAT 02/09/2025 3:08 PM EDT VITAMIN D 25 HYDROXY STAT 02/09/2025 3:08 PM EDT PREALBUMIN STAT 02/09/2025 3:08 PM EDT MAGNESIUM STAT 02/09/2025 3:08 PM EDT TROPONIN I, HIGH SENSITIVITY 0 HOUR STAT 02/09/2025 3:08 PM EDT COMPREHENSIVE METABOLIC PANEL STAT 02/09/2025 3:08 PM EDT REPEATED ABORH Routine 02/09/2025 3:07 PM EDT CBC WITH AUTO DIFFERENTIAL STAT 02/09/2025 3:07 PM EDT from Last 3 Months Results * Potassium (02/11/2025 12:15 PM EDT) [facility] POTASSIUM 4.0 3.5 - 5.0 mmol/L 02/11/2025 12:34 PM EDT [facility] Blood Venous blood / Unknown Venipuncture / Unknown 02/11/2025 12:15 PM EDT 02/11/2025 12:18 PM EDT us Shannon Schulte MD LAB BLOOD ORDERABLES Final Res ult [address] [place] [address], [place] * Light Blue Top (02/11/2025 4:43 AM EDT) Only the most recent of3 resultswithin the time period is included. Extra Tube Auto Resulted 02/11/2025 6:04 AM EDT [facility] Blood Venous blood / Unknown 02/11/2025 4:43 AM EDT 02/11/2025 5:56 AM EDT us Shannon Schulte MD LAB BLOOD ORDERABLES Final Res ult Performing Organization Address City/[facility]/ZIP Co de Phone Number [address] [place] [address], [place] * (ABNORMAL) CBC auto differential (02/11/2025 4:43 AM EDT) Only the most recent of3 resultswithin the time period is included. WBC 5.4 4 - 11 x10E9/L 02/11/2025 5:32 AM EDT [facility] RBC Count 3.53(L) 4.1 - 5.7 X10E12/L 02/11/2025 5:32 AM EDT [facility] Hemoglobin 11.1(L) 13 - 17 g/dL 02/11/2025 5:32 AM EDT [facility] Hematocrit 32.4(L) 39 - 50 % 02/11/2025 5:32 AM EDT [facility] MCV 92 80 - 100 fL 02/11/2025 5:32 AM EDT [facility] MCH 31.4 27 - 34 pg 02/11/2025 5:32 AM EDT [facility] MCHC 34.2 32 - 36 g/dL 02/11/2025 5:32 AM EDT [facility] RDW 14.3 11.5 - 15 % 02/11/2025 5:32 AM EDT [facility] Platelet Count 184 150 - 450 X10E9/L 02/11/2025 5:32 AM EDT [facility] MPV 8.3 7 - 12 fL 02/11/2025 5:32 AM EDT [facility] Neutrophils % 65.5 % 02/11/2025 5:32 AM EDT [facility] Lymphocytes % 17.6 % 02/11/2025 5:32 AM EDT [facility] Monocytes % 12.2 % 02/11/2025 5:32 AM EDT [facility] Eosinophils % 3.5 % 02/11/2025 5:32 AM EDT [facility] Basophils % 1.2 % 02/11/2025 5:32 AM EDT [facility] Neutrophils Absolute (A) 3.6 1.5 - 6.6 10*3/uL 02/11/2025 5:32 AM EDT [facility] Lymphocytes Absolute 1.0 1.0 - 3.5 10*3/uL 02/11/2025 5:32 AM EDT [facility] Monocytes Absolute 0.7 0.0 - 0.9 10*3/uL 02/11/2025 5:32 AM EDT [facility] Eosinophils Absolute 0.2 0.0 - 0.4 10*3/uL 02/11/2025 5:32 AM EDT [facility] Basophils Absolute 0.1 0.0 - 0.2 10*3/uL 02/11/2025 5:32 AM EDT [facility] Differential Type AUTOMATED DIFFERENTIAL 02/11/2025 5:32 AM EDT [facility] Blood Venous blood / Unknown Venipuncture / Unknown 02/11/2025 4:43 AM EDT 02/11/2025 5:15 AM EDT [facility] Jerome Kryuvalzer SUEDE CLEANER-CHIEF INSPECTOR LAB BLOOD ORDERABLES Fin al Result Performing Organization Address City/[facility]/ZIP Co de Phone Number [address] [address], [place] * Magnesium (02/11/2025 4:43 AM EDT) Only the most recent of3 resultswithin the time period is included. MAGNESIUM 1.9 1.8 - 2.6 mg/dL 02/11/2025 5:42 AM EDT [facility] Blood Venous blood / Unknown Venipuncture / Unknown 02/11/2025 4:43 AM EDT 02/11/2025 5:15 AM EDT Weston D Kryuvalzer SUEDE CLEANER-CHIEF INSPECTOR LAB BLOOD ORDERABLES Fin al Result Performing Organization Address [facility] Co de Phone Number [address] [place] [address], [place] * (ABNORMAL) Comprehensive metabolic panel (02/11/2025 4:43 AM EDT) Only the most recent of3 resultswithin the time period is included. SODIUM 138 134 - 146 mmol/L 02/11/2025 5:42 AM EDT [facility] POTASSIUM 3.4(L) 3.5 - 5.0 mmol/L 02/11/2025 5:42 AM EDT [facility] CHLORIDE 107 98 - 109 mmol/L 02/11/2025 5:42 AM EDT [facility] CARBON DIOXIDE 26 22 - 32 mmol/L 02/11/2025 5:42 AM EDT [facility] ANION GAP 5 5 - 15 mmol/L 02/11/2025 5:42 AM EDT [facility] BLOOD UREA NITROGEN 20 5 - 27 mg/dL 02/11/2025 5:42 AM EDT [facility] CREATININE 0.73 0.70 - 1.20 mg/dL 02/11/2025 5:42 AM EDT [facility] Comment:METHOD TRACEABLE TO IDMS STANDARD GLUCOSE 102(H) 65 - 99 mg/dL 02/11/2025 5:42 AM EDT [facility] CALCIUM 8.0(L) 8.5 - 10.5 mg/dL 02/11/2025 5:42 AM EDT [facility] TOTAL PROTEIN 5.4(L) 6.0 - 8.0 g/dL 02/11/2025 5:42 AM EDT [facility] ALBUMIN 3.0(L) 3.2 - 5.3 g/dL 02/11/2025 5:42 AM EDT [facility] ALKALINE PHOSPHATASE 84 39 - 130 U/L 02/11/2025 5:42 AM EDT [facility] AST 13 <=41 U/L 02/11/2025 5:42 AM EDT [facility] ALT 13 <=40 U/L 02/11/2025 5:42 AM EDT [facility] BILIRUBIN,TOTAL 0.8 0.3 - 1.2 mg/dL 02/11/2025 5:42 AM EDT [facility] EGFR Non-Race Dependent 88 >=60 ml/min/1.7 3sq.m 02/11/2025 5:42 AM EDT [facility] Comment: eGFR not reported due to non-numeric value for Creatinine. Reported eGFR is based on the CKD-EPI 2020 equation that does not use a race coefficient. Blood Venous blood / Unknown Venipuncture / Unknown 02/11/2025 4:43 AM EDT 02/11/2025 5:15 AM EDT us Weston Cisneros SUEDE CLEANER-CHIEF INSPECTOR LAB BLOOD ORDERABLES Fin al Result [facility] [address] [place] [address], [place] * Troponin I, High Sensitivity 1 Hour (02/09/2025 4:11 PM EDT) TROPONIN I, HIGH SENSITIVITY 4 <21 ng/L 02/09/2025 4:40 PM EDT [facility] Blood Venous blood / Unknown Venipuncture / Unknown 02/09/2025 4:11 PM EDT 02/09/2025 4:13 PM EDT us Anuradha Cano [place]ta SUEDE CLEANER-CHIEF INSPECTOR LAB BLOOD ORDERABLES Final Result [facility] [address] [place] [address], [place] * CT hip left without contrast [...] MD on 02/09/2025 4:08 PM Anuradha Holm APRN-CHIEF INSPECTOR IM CT ORDERABLES Fin al Result * X-ray [...] Mccartney MD on 02/09/2025 3:46 PM Anuradha Holm SUEDE CLEANER-CHIEF INSPECTOR IMG DIAGNOSTIC IMAGIN G ORDERABLES Final Result [...] Mccartney MD on 02/09/2025 3:45 PM Anuradha Holm SUEDE CLEANER-CHIEF INSPECTOR IMG DIAGNOSTIC IMAGIN G ORDERABLES Final Result [...] Joaquin Ohara MD on 02/09/2025 3:42 PM us Anuradha Holm SUEDE CLEANER-CHIEF INSPECTOR IMG DIAGNOSTIC IMAGIN G ORDERABLES Final Result [...] MD on 02/09/2025 3:41 PM Anuradha Holm APRN-CHIEF INSPECTOR IMG CT ORDERABLES Fin al Result * CT [...] Corby Eid MD on 02/09/2025 3:26 PM us Anuradha SOMMER IMG CT ORDERABLES Fin al Result * Type and screen(includes indirect octavio) (02/09/2025 3:15 PM EDT) ABO A 02/09/2025 4:06 PM EDT [facility] RH Negative 02/09/2025 4:06 PM EDT [facility] Antibody Screen Negative 02/09/2025 4:06 PM EDT [facility] Blood Venous blood / Unknown Venipuncture / Unknown 02/09/2025 3:15 PM EDT 02/09/2025 3:20 PM EDT us Anuradha Holm APRN-CHIEF INSPECTOR BLOOD BANK TEST ORDER HERMINIO Edited Result - Final Performing Organization Address City/[facility]/ZIP Co de Phone Number [facility] ÓSCAR Weinberg [address] [place] [address], [address] [place] [address], [place] * ECG 12 lead (02/09/2025 3:13 PM EDT) 02/09/2025 3:13 PM EDT Narrative TRACEMASTERVUE - 02/15/2025 5:54 PM EDT Anuradha Holm APRN-[facility] ECG ORDERABLES Final Result Performing Organization Address [facility] Co de Phone Number KAROLYN * Troponin I, High Sensitivity 0 Hour (02/09/2025 3:08 PM EDT) TROPONIN I, HIGH SENSITIVITY 4 <21 ng/L 02/09/2025 3:52 PM EDT [facility] Blood Venous blood / Unknown Venipuncture / Unknown 02/09/2025 3:08 PM EDT 02/09/2025 3:20 PM EDT [facility] BLOOD ORDERABLES Final Result Performing Organization Address [facility]/ZIP Co de Phone Number [address] [place] [address], [place] * Jackson Top On Ice (02/09/2025 3:08 PM EDT) Extra Tube Auto Resulted 02/09/2025 5:01 PM EDT [facility] Blood Venous blood / Unknown 02/09/2025 3:08 PM EDT 02/09/2025 3:20 PM EDT [facility]ad[facility] LAB BLOOD ORDERABLES Final Result Performing Organization Address City/[facility]/ZIP Co de Phone Number [facility] [address] [place] [address], [place] * Vitamin D 25 hydroxy (02/09/2025 3:08 PM EDT) VITAMIN D 25 HYD TOT 40.6 30.0 - 100.0 ng/mL 02/09/2025 10:48 PM EDT [facility] Blood Venous blood / Unknown Venipuncture / Unknown 02/09/2025 3:08 PM EDT 02/09/2025 3:20 PM EDT [facility] - 02/09/2025 10:48 PM EDT Vitamin D status 25 [place] Vitamin D Deficiency <20 ng/mL Insufficiency 20-29 ng/mL Sufficiency 30-100 ng/mL Toxicity >100 ng/mL NOTE: A pediatric reference range has not been established by the library media specialist of this kit. The [place] [employer] recommends a Vitamin D level of = or >20ng/mL in infants and children. us Anuradha Holm [facility] LAB BLOOD ORDERABLES Final Result Performing Organization Address City/[facility]/ZIP Co de Phone Number [facility] [address] [place] [address], * Prealbumin (02/09/2025 3:08 PM EDT) [facility] PREALBUMIN 20 18 - 45 mg/dL 02/09/2025 10:25 PM EDT [facility] Blood Venous blood / Unknown Venipuncture / Unknown 02/09/2025 3:08 PM EDT 02/09/2025 3:20 PM EDT Anuradha Holm [facility] LAB BLOOD ORDERABLES Final Result [facility] [address] [place] [address], * ABO Rh Repeat (02/09/2025 3:07 PM EDT) ABO A 02/09/2025 5:09 PM EDT [facility] RH Negative 02/09/2025 5:09 PM EDT [facility] Blood Venous blood / Unknown Venipuncture / Unknown 02/09/2025 3:07 PM EDT 02/09/2025 4:10 PM EDT us Shazia Grace MD BLOOD BANK TEST ORDERABLES Final Result [facility] ÓSCAR - [facility] [address] [place] [address], [facility] [address] [place] [address], from Last 3 Months Insurance [employer] Advance Directives * Full Code (Latest Code Status on File) Date Activated Date Inactivated Comments 02/09/2025 4:33 PM 02/11/2025 5:04 PM Care Teams Meat Inspector Relationship Specialty Start Date End Date Dion Donovan MD [address] [place] [address] PCP - General Family Medicine 02/09/25
--- OUTSIDE RECORDS SUMMARY | 2025-02-23 21:00 | XMS_ITS | Encounter Summary ---
Author Organization [employer] tem Address [id number] [address] [place] [address] Care Team Providers Care Veneer Manufacturer Name Role Phone Dion Donovan MD Primary Care Provider [phone] Encounter Details Date Type Department Care Team (Latest Contact Info) Description 02/09/2025 Travel Social History Tobacco Use Types Packs/Day Years [...] PM EDT documented as of this encounter Plan of Treatment Not on file documented as of this encounter Visit Diagnoses Not on filedocumented in this encounter Care Teams Veneer Manufacturer Relationship Specialty Start Date End Date Dion Donovan MD [address] [place] [address] PCP - General Family Medicine 02/09/25 documented as of this encounter
--- OUTSIDE RECORDS SUMMARY | 2025-02-23 21:00 | XMS_ITS | Encounter Summary ---
Author Organization [facility] Address [address] [place] [address] Care Team Providers Care Director Of Sustainability Programs Name Role Phone Unavailable Primary Care Provider Unavailabl e Source Comments In the event this information is protected by the Federal Confidentiality of Alcohol and Drug AbusePatient Records regulations: The Federal rules restrict any use of the information to criminally investigate or prosecute any alcohol or drug abuse patient.[facility] Encounter Details Date Type Department Care Team (Late st Contact Info) Description 10/08/2024 Patient Msg Neurology [address] [address] Provider, [facility] Handicapped Parking Order Social History Tobacco Use Types Packs/Day Years Used Date Smoking Tobacco: Former Comments:He msoked 1-2 PPd x 25-30 years, quit 20-25 years ago Alcohol Use Standard Drinks/Week Comments Yes 0 (1 standard drink = 0.6 oz pur e alcohol) He drinks 2 beers daily Area Deprivation Index Answer Date Vimal rded National Score (1-100), lower number is lower ri 65 01/23/2024 State Score (1-10), lower number is lower risk 5 01/23/2024 Data from: https://www.neighborhoodatlas.medicine.[facility].edu/. Last address used for calculation [address] 01/23/2024 Sex and Gender Information Value Date Recorded Sex Assigned at Not on file Legal Sex Male 10:00 AM EST Gender Identity Not on file Sexual Orientation Not on file documented as of this encounter Plan of Treatment Not on file documented as of this encounter Visit Diagnoses Not on filedocumented in this encounter
--- OUTSIDE RECORDS SUMMARY | 2025-02-23 21:00 | XMS_ITS | Encounter Summary ---
Author Organization [facility] Address [facility] [place] [address] Care Team Providers Care Cycle Analyst Name Role Phone Unavailable Primary Care Provider Unavailabl e Source Comments In the event this information is protected by the Federal Confidentiality of Alcohol and Drug AbusePatient Records regulations: The Federal rules restrict any use of the information to criminally investigate or prosecute any alcohol or drug abuse patient.[facility] Encounter Details Date Type Department Care Team (Late st Contact Info) Description 02/13/2024 [place] [address] Provider, [facility] MRI Screening Questionnaire Completion Required Social History Tobacco Use Types Packs/Day Years [...] is lower risk 5 01/23/2024 Data from: https://www.neighborhoodatlas.medicine.[facility].edu/. Last address used for calculation [address] [...]
--- OUTSIDE RECORDS SUMMARY | 2025-02-23 21:00 | XMS_ITS | Encounter Summary ---
Author Organization [facility] Address [address] [place] [address] Care Team Providers Care Access Liaison Name Role Phone Unavailable Primary Care Provider Unavailabl e Source Comments In the event this information is protected by the Federal Confidentiality of Alcohol and Drug AbusePatient Records regulations: The Federal rules restrict any use of the information to criminally investigate or prosecute any alcohol or drug abuse patient.[facility] Encounter Details Date Type Department Care Team (Late st Contact Info) Description 06/01/2024 Telephone Neurology [address] [address] [place] [address] [place] [address] Social History Tobacco Use Types Packs/Day Years [...] is lower risk 5 01/23/2024 Data from: https://www.neighborhoodatlas.medicine.[facility]/. Last address used for calculation [address] 01/23/2024 Sex and Gender Information Value Date Recorded Sex Assigned at Not on file Legal Sex Male 10:00 AM EST Gender Identity Not on file Sexual Orientation Not on file documented as of this encounter Miscellaneous Notes * Telephone Encounter - Tiarra Blum RN - 06/01/2024 1:53 PM EST LVM for patient spouse with information on BMV paperwork and taking patient's keys. Also discussed social work telephone call. Tiarra Blum RN * Telephone Encounter - Ac Zambrano - 06/01/2024 9:50 AM EST 06/01/24 Ashlie Bonilla the patients PCP reached the office to relay she saw this patient in office last week on 05/27/24. She reports the patient has had multiple falls and the notes his behavioral decline has progressed to the point he is becoming more aggressive/combative and restless. The patient's also hides the patient's keys to prohibit him from driving and would like to initiate getting his license revoked. PCP is requesting a JALEN or Dr. Oliva reach out to the patient's spouse via phone call to touch base with the patient due to the patient living hours away and doubts they canconnect successfully with a virtual visit. Please review and advise. Patient's spouse Pedro [phone] -[place] documented in this encounter Plan of Treatment Not on file documented as of this encounter Visit Diagnoses Not on filedocumented in this encounter
--- OUTSIDE RECORDS SUMMARY | 2025-02-23 21:00 | XMS_ITS | Clinical Summary ---
Author Organization [facility] Address [address] [place], [place] [address] Care Team Providers Care Security Control Assessor Name Role Phone Unavailable Primary Care Provider Unavailabl e Allergies Active Allergy Reactions Criticality Noted Date Comments Pineapple Other: See Comments 04/16/2011 Tickle in back of throat Sulfa (Sulfonamide Antibiotics) 05/17/2003 hives + SOB Medications Aspirin (EXTRA STRENGTH GAIL) 500 mg ORAL Tab Take 1,000 mg by mouth twice daily. 0 1 Active esomeprazole (NEXIUM) 40 mg ORAL capsule Take 1 capsule by mouth once daily. 0 1 Active mometasone (NASONEX) 50 mcg/Actuation NASAL nasal spray Use 2 Sprays in each nostril once daily. 0 1 Active fluticasone-salm eterol (ADVAIR DISKUS) 250-50 mcg/dose INHALATION DsDv Inhale 1 Puff as instructed twice daily. rinse and gargle mouth with water after each use 0 1 Active isosorbide mononitrate ER (IMDUR) 30 mg 24 hr tablet Take 0.5 tablets by mouth twice daily. 6 Active albuterol HFA (PROVENTIL HFA, VENTOLIN HFA) 90 mcg/actuation inhaler Inhale 2 Puffs as instructed every 4 hours as needed. 8 Active fluticasone (FLONASE) 50 mcg/actuation nasal spray Use 1 [place] in the nose once daily. Active loratadine-pseud oephedrine ER (CLARITIN-D 24) 10-240 mg Tb24 Take 1 tablet by mouth once daily. Active fluticasone furoate-vilanter ol (BREO ELLIPTA) 50-25 mcg/dose inhaler Inhale 1 Inhalation as instructed once daily. Active donepezil (ARICEPT) 10 mg tablet Take 1 tablet by mouth daily at bedtime. 90 tablet 3 4 Active memantine (NAMENDA) 10 mg tabletIndication s:Mild late onset Alzheimer's dementia without behavioral disturbance, psychotic disturbance, mood disturbance, or anxiety (HCC) Take 1 tablet by mouth two times a day. 180 tablet 3 4 04/30/20 25 Active sertraline (ZOLOFT) 50 mg tablet Take 1.5 tablets by mouth once daily. 60 tablet 5 5 Active Active Problems Problem Noted Date Diagnosed Date Abnormal cardiovascular stress test 04/16/2011 Overview (04/16/2011): STRESS TEST 04/01/11: Total exercise time: 3:18 Symptomatic dyspnea on exertion Max HR 132, 90% MPHR No ST changes Small to moderate reversible defect of the apex No fixed defects LVEF 72% Asthma 04/16/2011 GERD (gastroesophageal reflux disease) 1 OA (osteoarthritis) of knee 04/16/2011 Encounters Date Type Department Care Team Description 01/05/2025 Telephone [address] [place], [place] [id number] Esme Arevalo PA-C Appointment (Left voicemail regarding scheduling follow up with Esme in 3 months (Mar 2025), and new consult with Virginia Camacho, the [facility] clinical social worker, scheduling number included for call back.) 01/04/2025 3:45 PM EDT [facility] Neurology [address] [place] [id number] Esme Arevalo PA-C Alzheimer's disease (HCC) (Primary Dx); Probable Alzheimer's disease - LATE ONSET (> 65 years) [331.0AS] 01/04/2025 Travel from Last 3 Months Family History Medical History Relation Comments Lipids Brother Alive age 52 Heart Father age 70 of [place], first [place] age 65 Other [Other] Mother age 90 of ( ?) dementia Relation Status Comments Brother Father Mother Social History Tobacco Use Types Packs/Day Years Used Date Smoking Tobacco: Former Tobacco Cessation:Counseling Given: Not Answered Comments:He msoked 1-2 PPd x 25-30 years, quit 20-25 years ago Alcohol Use Standard Drinks/Week Comments Yes 0 (1 standard drink = 0.6 oz pur e alcohol) He drinks 2 beers daily Area Deprivation Index Answer Date Vimal rded National Score (1-100), lower number is lower ri sk 65 01/23/2024 State Score (1-10), lower number is lower risk 5 01/23/2024 Data from: https://www.neighborhoodatlas.medicine.[facility].edu/. Last address used for calculation [address] [facility] 01/23/2024 Sex and Gender Information Value Date Recorded Sex Assigned at Not on file Legal Sex Male 10:00 AM EST Gender Identity Not on file Sexual Orientation Not on file Last Filed Vital Signs Vital Sign Reading Time Taken Comments Blood Pressure 129/91 10/07/2024 12:51 PM EDT Pulse 115 10/07/2024 12:51 PM EDT Temperature 36.5 C (97.7 F) 04/17/2011 3:40 PM EDT Respiratory Rate 18 04/17/2011 4:40 PM EDT Oxygen Saturation 96% 04/17/2011 6:33 PM EDT Inhaled Oxygen Concentration - - Weight 69.6 kg (153 lb 8 oz) 10/07/2024 12:51 PM EDT Height 167.6 cm (5' 6 ) 04/30/2024 11:25 AM EDT Body Mass Index 24.78 04/30/2024 11:25 AM EDT Plan of Treatment Health Maintenance Due Date Last Done Comments Anxiety Screening 1953 Depression Screening 1953 DTaP,Tdap,Td Vaccine (1 - Tdap) 1956 Shingrix Vaccine (1 of 2) 1987 RSV Vaccine (1 - 1-dose 75+ series) 2012 Advance Directive Discussion 07/14/2024 Medicare Advantage Annual We llness Visit 07/14/2024 Influenza Vaccine (#1) 2025 4, 03/22/2022, 07/30/2021, Additional history exists Diabetes Screening 08/05/2027 08/05/2024, 0 07/30/2024, 04/16/2011 Pneumococcal Vaccine: 50+ Completed 04/24/2017, 07/2007 Procedures Procedure Name Priority Date/Time Associated Diagnosis Comments COMPREHENSIVE METABOLIC PANEL Routine 04/16/2011 10:57 AM EDT Chest pain from Last 3 Months or Most Recently Relevant to Health Maintenance Results * COMP METABOLIC PANEL (04/16/2011 10:57 AM EDT) Protein, Total 7.0 6.0 - 8.4 g/dL [facility] Albumin 4.3 3.5 - 5.0 g/dL [facility] Calcium 9.2 8.5 - 10.5 mg/dL [facility] Bilirubin, Total 0.3 0.0 - 1.5 mg/dL [facility] Alkaline Phosphatase 93 40 - 150 U/L [facility] AST 21 7 - 40 U/L [facility] Glucose 85 65 - 100 mg/dL [facility] BUN 18 10 - 25 mg/dL [facility] Creatinine 0.85 0.70 - 1.40 mg/dL [facility] Sodium 141 135 - 146 mmol/L [facility] Potassium 4.5 3.5 - 5.0 mmol/L [facility] Chloride 103 98 - 110 mmol/L [facility] CO2 27 23 - 32 mmol/L [facility] Anion Gap 11 0 - 15 mmol/L [facility] ALT 18 5 - 50 U/L [facility] eGFR- >60 [facility] eGFR-All Other Races >60 . [facility] Comment: eGFR (Estimated GFR) Units of measure: mL/min/1.73 meters squared eGFR is derived from the reexpressed MDRD Study equation using the following parameters: serum creatinine, age, gender and race. The creatinine assay has been calibrated to be traceable to IDMS. An eGFR <60 mL/min/1.73m2 for >3 months is consistent with chronic kidney disease. Refer to KDOQI guidelines for clinical interpretation. Blood specimen (specimen) BLOOD SPECIMEN / Unknown 04/16/2011 10:57 AM EDT 04/16/2011 10:59 AM EDT us Antoni Rosario MD LABORATORY Final Result [facility] [address] [place] [address] from Last 3 Months or Most Recently Relevant to Health Maintenance Insurance [employer] O
--- OUTSIDE RECORDS SUMMARY | 2025-02-23 21:00 | XMS_ITS | Patient Health Record ---
Author Organization [facility] [place] Address [address] [place] [address] Care Team Providers Care Glass Smoother Name Role Phone Dion Donovan MD Primary Care Provider Charles grimaldo DevRoxyLarry Unavailable [phone] Allergies Allergen (clinical drug ingredient) Drug/Non Drug Allergy documented on EMR Reaction Allergy Type Onset Date Status amoxicillin / clavulanate Augmentin Unknown Drug Allergy Active Eggs or Egg-derived Products Unknown Drug Allergy Active Substance with sulfonamide structure and antibacterial mechanism of action (substance) Sulfa Antibiotics Unknown Drug Allergy Active Reason For Referral No Information Medications Medication SIG (Take, Route, Frequency, Duration) Notes Start Date End Date Status NexIUM 24HR 20 MG 1 capsule Orally Once a day Active Albuterol Sulfate [...] 10 MG Oral for 90 Days Active Trelegy Ellipta 200-62.5-25 MCG/ACT 1 puff Inhalation Once a day for 30 days Rinse after use 06/09/2023 Not-Taking Claritin-D 24 Hour 10-240 MG take 1 tablet by mouth once daily Oral for 30 Days Active Sodium Chloride 0.9 % 3mL Inhalation TID for 30 days Not-Taking Breo Ellipta 100-25 MCG/ACT 1 puff Inhalation Once a day for 90 days Rinse after use Active Mucinex 600 MG 1 tablet as needed Orally every 12 hrs Not-Taking Biotin 10 MG 1 tablet Orally Once a day Active Albuterol Sulfate (2.5 MG/3ML) 0.083% 3mL Inhalation TID for 30 days Not-Taking Benzonatate 100 MG TAKE 1 CAPSULE BY MOUTH THREE TIMES DAILY NEEDED FOR COUGH Oral for 10 Days Active Advair Diskus 250-50 MCG/ACT 1 puff Inhalation Twice a day Not-Taking Aspirin 81 MG 1 tablet Orally Once a day Active Sertraline HCl 50 MG Oral for 30 Days Active Immunizations Vaccine Route Administration Date Status Comme nts Flu, Flublok (46586) 18 yrs and older, single-dose syringe (6544-0538) Unknown 06/24/2024 Administered Flu, Flublok (05343) 18yr+, single-dose (6577-2009) Unknown 03/22/2022 Administered Pneumococcal (Prevnar 13) Unknown 04/24/2017 Administer ed SARS-COV-2 (COVID 19 Moderna Bivalent Booster 0.5mL) Unknown 05/17/2022 Administered Social History Tobacco Use: Social History Observation Description Date Details (start date - stop date) Former Smoker NA - NA Tobacco Control (Standard) Question Answer Notes Tobacco use: Former smoker How long has it been since y ou last smoked? Greater than 10 years Additional Findings: Tobacco non-user Ex -very heavy cigarette smoker (40+/day) Problems Problem Type SNOMED Code ICD Code Onset Dates Problem Status W/U Status Risk Notes Problem 25954696 Mucopurulent chronic bronchitis (J41.1) Active confirmed Problem Uncomplicated moderate persistent asthma (108670254) Moderate persistent asthma, uncomplicated (J45.40) Active confirmed Problem Long-term current use of inhaled steroid (219134591) retirement (current) use of inhaled steroids (Z79.51) Active confirmed Problem Coronary artery disease (13184131) CAD (coronary artery disease) (I25.10) Active confirmed Problem Dementia (76060150) Dementia (F03.90) Active confirmed Problem Allergic rhinitis (08534277) Allergic rhinitis (J30.9) Active confirmed Problem Dysphagia (26278450) Dysphagia (R13.10) Active confirmed Problem Alzheimer's disease (96397124) Alzheimer's dementia (G30.9) Active confirmed Problem Allergy to egg protein (finding) (384107413) Egg allergy (Z91.012) Active confirmed Problem Recurrent falls (469741360) Multiple falls (R29.6) Active confirmed Problem Ex-tobacco user (finding) (453038831) History of tobacco abuse (Z87.891) Active confirmed Problem Moderate persistent asthma (075915473) Moderate persistent asthma (J45.40) Active confirmed Vital Signs Heart Rate 81 /min 01/04/2025 Temperature 97.0 degrees Fahrenheit 01/04/2025 Respiratory Rate 20 /min 01/04/2025 Oximetry 95 % 01/04/2025 Blood pressure diastolic 85 mm Hg 01/04/2025 Height 66 in 01/04/2025 Blood pressure systolic 160 mm Hg 01/04/2025 Weight 151.4 lbs 01/04/2025 BMI 24.43 kg/m2 01/04/2025 Encounters Encounter Location Date Provider Diagnosis Pul[facility] [address] [place] [address] 12/27/2024 [facility] [address] [place] [address] 03/09/2024 [facility] Pulmonary [facility] [address] [place] [address] 08/05/2024 [facility] Pulmonary [facility] [address] [place] [address] 12/15/2024 [facility] Pulmonary [facility] [address] [place] [address] 06/15/2024 [facility] Moderate persistent asthma, uncomplicated J45.40 ; Mucopurulent chronic bronchitis J41.1 ; Allergic rhinitis J30.9 ; Alzheimer's dementia G30.9 ; Encounter for immunization Z23 ; Egg allergy Z91.012 ; Multiple falls R29.6 ; 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 and History of tobacco abuse Z87.891 [facility] [address] [place] [address] 01/04/2025 [facility] Moderate persistent asthma, uncomplicated J45.40 ; Mucopurulent chronic bronchitis J41.1 ; Allergic rhinitis J30.9 ; Alzheimer's dementia G30.9 ; Multiple falls R29.6 ; 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 06/15/2024 Mucopurulent chronic bronchitis (ICD-10 - J41.1) Continue pulmonary toilet. 01/04/2025 Moderate persistent asthma, uncomplicated (ICD-10 - [...] (ICD-10 - J30.9) Flonase is from [facility]. 06/15/2024 Allergic rhinitis (ICD-10 - J30.9) Continue Flonase which she is getting from [facility]. 06/15/2024 Alzheimer's dementia (ICD-10 - G30.9) Diagnosed and treated through the [facility]. Patient is confused today and goes off [...] and she does not need any assistance. 01/04/2025 Alzheimer's dementia (ICD-10 - G30.9) Diagnosed and treated through the [facility]. Worsening in my opinion. Losing weight. More confused. 01/04/2025 Multiple falls (ICD-10 - R29.6) History of falls. Gait appears unstead. 06/15/2024 Encounter for immunization (ICD-10 - Z23) Patient has an egg allergy. asked about influenza vaccines. According to the CDC (https://www.cdc.g ov/flu/vaccines/eg g-allergies.html), Beginning with the 2296-2031 season, additional safety measures are no longer recommended for flu vaccination of people who are allergic to eggs beyond those recommended for receipt of any vaccine, regardless of the severity of previous reaction to egg. Therefore, I recommended that the benefits vastly outweigh the risks of influenza vaccination. She voiced understanding. 06/15/2024 Egg allergy (ICD-10 - Z91.012) 01/04/2025 retirement (current) use of inhaled steroids (ICD-10 - Z79.51) Patient was counseled to rinse & gargle with water after inhaled corticosteroid use. 01/04/2025 History of tobacco abuse (ICD-10 - Z87.891) This patient does not meet current LDCT criteria (e.g. age, time from cessation, # pack-years). 06/15/2024 Multiple falls (ICD-10 - R29.6) As above, patient has had multiple falls in the past. The voiced refusal for any assistance. 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 06/15/2024 History of tobacco abuse (ICD-10 - Z87.891) This patient does not meet current LDCT criteria (e.g. age, time from cessation, # pack-years). 06/15/2024 Other 12/15/2024 Other Plan Of Treatment No Information Insurance Providers Payer Name Payer Address Payer Phone Subscriber Number Group Number Insured Name Patient Relationship to Insured Coverage Start Date Coverage End Date [employer]AN [address] [place] [phone] [id number] Rolando Rothman Self - patient is the insured Medical (General) History Medical History History ICD Code Allergic rhinitis J30.9 Carpal tunnel syndrome, bilateral G56.03 GERD (gastroesophageal reflux disease) K 21.9 HTN (hypertension) I10 CAD (coronary artery disease) I25.10 Moderate persistent asthma, uncomplicate d J45.40 Multiple falls R29.6 Umbilical hernia K42.9 retirement (current) use of inhaled stero ids Z79.51 Egg allergy Z91.012 Alzheimer's dementia G30.9 History of tobacco abuse Z87.891 Whooping cough due to Bordetella pertuss is A37.00 Surgical History Surgery Date(Month/Year) Cardiac Catheterization 04/2011 left rotator cuff tear repair left knee replacement Hospitalization History Reason Date(Month/Year) Acute Asthma Exacerbation-[facility] 03/02/2023
--- OUTSIDE RECORDS SUMMARY | 2025-02-23 21:01 | XMS_ITS | Clinical Summary ---
Author Organization [facility] Address [address] [place] [address] Care Team Providers Care Swine Nutritionist Name Role Phone Yonny Fitzpatrick MD Primary Care Provider [phone] Allergies Active Allergy Reactions Criticality Noted Date Comments Sulfa (Sulfonamide Antibiotics) 03/2014 Medications NASONEX 50 mcg/actuation nasal spray 06/10/2014 Active isosorbide mononitrate (IMDUR) 30 MG 24 hr tablet 05/25/2014 Active FLUTICASONE-SALM ETEROL 250-50 mcg/dose diskus inhaler 04/24/2014 Active aspirin 325 MG tablet Take 325 mg by mouth daily. Active loratadine-pseud oePHEDrine (CLARITIN-D 24-hour) 10-240 mg per 24 hr tablet Take 1 tablet by mouth daily. Active esomeprazole (NEXIUM) 40 MG capsule Take 40 mg by mouth every morning before breakfast. Active potassium gluconate 595 (99) mg Tab Take by mouth. Active albuterol (PROVENTIL HFA;VENTOLIN HFA) 90 mcg/actuation inhaler Inhale 2 puffs every 6 (six) hours as needed for wheezing. Active Active Problems Problem Noted Date Diagnosed Date Asthma 06/21/2014 GERD (gastroesophageal reflux disease) 4 CAD (coronary artery disease) 06/21/2014 Rhinitis 06/21/2014 Family History Medical History Relation Comments Cancer Brother Asthma Daughter Heart disease Father Asthma Son Relation Status Comments Brother Daughter Father Son Social History Tobacco Use Types Packs/Day Years Used Date Smoking Tobacco: Former Alcohol Use Standard Drinks/Week Comments Yes 2 (1 standard drink = 0.6 oz pur e alcohol) Sex and Gender Information Value Date Recorded Sex Assigned at Not on file Legal Sex Male 2:09 AM EDT Gender Identity Not on file Sexual Orientation Not on file Last Filed Vital Signs Vital Sign Reading Time Taken Comments Blood Pressure 150/90 06/21/2014 6:36 AM EST Pulse 70 06/21/2014 6:36 AM EST Temperature 36.5 C (97.7 F) 06/21/2014 6:36 AM EST Respiratory Rate 14 06/21/2014 6:36 AM EST Oxygen Saturation 96% 06/21/2014 6:36 AM EST Inhaled Oxygen Concentration - - Weight 72.6 kg (160 lb) 06/21/2014 6:36 AM EST Height 162.6 cm (5' 4 ) 06/21/2014 6:36 AM EST Body Mass Index 27.46 06/21/2014 6:36 AM EST Plan of Treatment Health Maintenance Due Date Last Done Comments Tetanus: Every 10yrs 1937 Wellness Visit 1940 Depression Screening/Follow-Up (PHQ-2/9) 1949 Pneumococcal Vaccine: Age 50+ (1 of 1 - PCV) 7 Zoster Vaccines (1 of 2) 1987 Falls Risk Assessment 2002 Respiratory Syncytial Virus Immunization: Risk, 60-74 Risk, or 75+ (1 - 1-dose 75+ series) 2012 COVID-19 Vaccine ( - 2023- season) 2024 Influenza Vaccine (#1) [address] [address] [place] [address] [employer] CHO[employer] PPO Care Teams Swine Nutritionist Relationship Specialty Start Date End Date Yonny Fitzpatrick MD [facility] [place] [phone] PCP - General Family Medicine 06/21/14
--- OUTSIDE RECORDS SUMMARY | 2025-02-23 21:01 | XMS_ITS | Encounter Summary ---
Author Organization [facility] Healthcare Address [address] [place] [address] Care Team Providers Care Co Op Name Role Phone Shaikh AYSMANI Franklin Unavailable [phone] Dion Donovan MD Primary Care Provider [phone] Javid Marie MA Unavailable [phone] Encounter Details Date Type Department Care Team (Late st Contact Info) Description 02/15/2025 Patient Outreach [facility] [address] [place] [address] Afia Arriaga LPN Social History Tobacco Use Types Packs/Day Years Used Date Smoking Tobacco: Never Passive Smoke Exposure: Never Smokeless Tobacco: Never Alcohol Use Standard Drinks/Week Comments Yes 14 (1 standard drink = 0.6 oz pu re alcohol) caffeine: 1-2 cups per day [id number] Health Literacy Answer Date Recor ded How often do you need to hav e someone help you when you read instructions, pamphlets, or other written material from your doctor or pharmacy? Often 06/14/2024 Humiliation, Afraid, Rape, and Kick questionnair e Answer Date Recorded Within the last year, have y ou been afraid of your partner or ex-partner? No 06/14/2024 Within the last year, have y ou been humiliated or emotionally abused in other ways by your partner or ex-partner? No 06/14/2024 Within the last year, have y ou been kicked, hit, slapped, or otherwise physically hurt by your partner or ex-partner? No 06/14/2024 Sexually Abused Not on file 06/14/2024 Social Connection and Isolation Panel [NHANES] A nswer Date Recorded In a typical week, how many times do you talk on the phone with family, friends, or neighbors? Once a week 06/14/2024 How often do you get together with friends or re latives? Once a week 06/14/2024 How often do you attend caodaism or hinduism serv ices? Never 06/14/2024 Do you belong to any clubs o r organizations such as caodaism groups, unions, fraternal or athletic groups, or school groups? No 06/14/2024 Attends Club or Organization Meetings Not on tommy e 06/14/2024 Are you , , di vorced, , never , or living with a partner? 06/14/2024 AUDIT-C Answer Date Recorded Q1: How often do you have a drink containing alcohol? Never 06/14/2024 Q2: How many drinks containi ng alcohol do you have on a typical day when you are drinking? Patient does not drink Q3: How often do you have si x or more drinks on one occasion? Never 06/14/2024 PHQ-2 Answer Date Recorded Patient Health Questionnaire-2 Score 0 07/19/2024 [facility] - Occupational Stress Questionnaire Answer Date Recorded Do you feel stress - tense, restless, nervous, or anxious, or unable to sleep at night because your mind is troubled all the time - these days? To some extent 06/14/2024 Exercise Vital Sign Answer Date Recorde d On average, how many days pe r week do you engage in moderate to strenuous exercise (like a brisk walk)? 0 days 06/14/2024 On average, how many minutes do you engage in exercise at this level? 0 min 06/14/2024 Hunger Vital Sign Answer Date Recorded Within the past 12 months, y ou worried that your food would run out before you got the money to buy more. Never true 06/14/20 24 Within the past 12 months, t he food you bought just didn't last and you didn't have money to get more. Never true 06/14/2024 PRAPARE - Transportation Answer Date Re corded In the past 12 months, has l ack of transportation kept you from medical appointments or from getting medications? No 08/2023 In the past 12 months, has l ack of transportation kept you from meetings, work, or from getting things needed for daily living? No 06/14/2024 Housing Stability Vital Sign Answer Kevon e Recorded In the last 12 months, was t here a time when you were not able to pay the mortgage or rent on time? No 06/14/2024 In the past 12 months, how m any times have you moved where you were living? 0 06/14/2024 At any time in the past 12 m [facility], were you homeless or living in a [place] facility (including now)? No 06/14/2024 Sex and Gender Information Value Date Recorded Sex Assigned at Not on file Legal Sex Male 8:35 PM EDT Gender Identity Not on file Sexual Orientation Not on file documented as of this encounter Progress Notes * Afia Arriaga LPN - 02/15/2025 11:36 AM EDT Images from the original note were not included. <February 15, 2025, 11:39 - Afia Arriaga LPN> Rolando Rothman is a 89 y.o. male [...] nonsurgical request PT OTevaluations. PT OT recommends nursing home facility. Patient weight-bearing as tolerated to leftlower extremity. Patient pain has been well controlled with [place]. Patient be discharged to skillednursing facility with pain medication for further physical therapy. Flowsheet Row Patient Outreach from 02/15/2025 in [facility] with Afia Arriaga LPN Hospital Information ED, Hospital or Prison Facility Discharge? Hospital Patient has been contacted within two business days of discharge No [DUE TO GOING TO SNF] Have two attempts been made to contact the patient within two business days of being discharged? No Diagnosis Closed nondisplaced fracture of greater trochanter of left femur, [place]), Frequent falls, Generalized weakness, History of dementia, Stage 3 severe COPD byGOLD classification ([facility] Discharge Date 02/11/25 Discharged To: Prison Facility (specify SNF in comments) Discharge Hospital [facility] Engagement Admission Date 02/09/25 Medications Appointments Self Management Patient Teaching Wrap Up documented in this encounter Plan of Treatment Upcoming Encounters Date Type Department Care Team (Late st Contact Info) Description 06/20/2025 1:30 PM EST Office Visit [facility] [address] [place] [id number] Dion Donovan MD [address] [place] [phone] documented as of this encounter Visit Diagnoses Not on filedocumented in this encounter Additional Health Concerns Assessment Noted Time PHQ-9 Depression Total Score: 6 07/19/19 25 1:00 PM EST A fall risk assessment has been complete d for the patient 06/14/2024 1:51 PM EST documented as of this encounter Care Teams Co Op Relationship Specialty Start Date End Date Shaikh Franklin MD [address] [place] [address] PCP - Johan VASQUEZ 07/14/23 Dion Donovan MD [address] [place] [address] PCP - General Family Medicine 04/07/24 Javid Marie MA [address] [place] [address] Family Medicine 06/04/24 documented as of this encounter
--- OUTSIDE RECORDS SUMMARY | 2025-02-23 21:01 | XMS_ITS | CCD ---
Author Organization [facility] Care Team Providers Care Sports Trainer Name Role Phone SHAIKH FRANKLIN Consulting Unavailable SHAIKH FRANKLIN Attending Unavailable SAMANTHA FRANKLINIKH Admitting Unavailable SAMANTHA FRANKLINIKH Primary Care Unavailable Unavailable Primary Care Provider Shaikh Mccallum MD Unavailable Dion Frazier MD Primary Care Provider Mikhail VALVE LINER RUBBER, Ashley Unavailable [phone] Javid Marie MA Unavailable Unavailable Mikhail VALVE LINER RUBBER, Ashley Unavailable [phone] ASHLEY ELIZONDO Attending UnavailDION Rose Attending Unavailable DION FRAZIER Attending Unavailable SHAIKH FRANKLIN Attending Unavailable ASHLEY ELIZONDO Attending Unavailabl e ASHLEY ELIZONDO Attending Unavailabl e MARGARITA AREVALO Attending Unavailable MARGARITA AREVALO Attending Unavailable FÁTIMA OLIVAS Referring Unavailable DOPREET ANTHONY Referring Unavailable DOPREET ANTHONY Attending Unavailable DOPREET ANTHONY Referring Unavailable DOPREET ANTHONY Attending Unavailable RIGOBERTO, JONAS Primary Care Unavailable ASHLEY ELIZONDO Referring Unavaila ble ASHLEY ELIZONDO Referring Unavaila ble RIGOBERTO, JONAS Primary Care Unavailable ASHLEY ELIZONDO Primary Care Unavaila ble BUTCH MANCUSO Attending Unavailable ASHLEY ELIZONDO Primary Care Unavaila ble JOVANNA MCMAHON Attending Unavailable DION FRAZIER Primary Care Unavailable NIMO MENDEZ Consulting Unavailable WISAM GUTIERRES Admitting Unavailable WISAM GUTIERRES Attending Unavailable DION FRAZIER Referring Unavailable DION FRAZIER Primary Care Unavailable Allergies Allergy Classification Reported Allergen(s) Allergy Type Date of Onset Reaction(s) Facility (20 sources) Sulfonamides (Antibiotic); Translations: [SULFA (SULFONAMIDE ANTIBIOTICS)] Propensity to adverse reactions 05-17-20 03 Other [facility] Work Phone: (11 sources) Pineapple; Translations: [PINEAPPLE] Propensity to adverse reactions to drug 04-16-20 11 Other: See Comments [facility] Work Phone: (12 sources) Bananas Propensity to adverse reactions 06-30-20 23 [facility] (17 sources) egg shell Propensity to adverse reactions 10-29-19 17 [facility] (17 sources) pineapple allergenic extract Drug Allergy 04-16-20 11 Other [facility] (17 sources) Sulfanilamide Propensity to adverse reactions 06-30-20 23 [facility] (19 sources) Amoxicillin-Pot Clavulanate; Translations: [AMOXICILLIN-POT CLAVULANATE] Drug Allergy 10-29-19 17 Unknown [facility] Healthcare (17 sources) Egg-Derived Products Drug Intolerance 05-17-20 03 Swelling [facility] (1 source) OTHER; Translations: [OTHER] Propensity to adverse reactions (disorder) 05-17-20 03 [facility] Repository (2 sources) egg shell membrane; Translations: [EGGSHELL MEMBRANE] Propensity to adverse reactions to food (disorder) 10-29-19 17 [facility] Repository Medications Current Medications Medication Drug Class(es) Dates Sig (Normalized) Sig (Original) [id number] 200 actuat albuterol 0.09 mg/actuat metered dose inhaler (20 sources) beta2-Adrenergic Agonist Start: 05-07-2018 take 2 puff(s) by inhalation every four hours as needed albuterol HFA (PROVENTIL HFA, VENTOLIN HFA) 90 mcg/actuation inhaler Inhale 2 Puffs as instructed every 4 hours as needed. 05/07/2018 Active take 2 puff(s) by in halation every four hours for wheezing albuterol HFA 90 mcg/act inhaler Inhale 2 puffs every 4 (four) hours if needed for wheezing Active aspirin 500 mg oral tablet (8 sources) Platelet Aggregation Inhibitor, Nonsteroidal Anti-inflammatory Drug Start: 04-16-2011 take 2 tablets by mouth twice daily Aspirin (EXTRA STRENGTH GAIL) 500 mg ORAL Tab Take 1,000 mg by mouth twice daily. 0 04/16/2011 Active benzonatate 100 mg oral capsule (6 sources) Non-narcotic Antitussive Start: 11-17-2024 take 1 capsule by mouth three times daily as needed for cough benzonatate (Tessalon) 100 MG capsule Indications: Cough, unspecified type Take 1 capsule (100 mg) by mouth 3 (three) times a day as needed for cough 30 capsule 1 11/17/2024 Active Start: 08-05-2024 [address] [facility] every eight hours benzonatate (Tessalon) 100 MG capsule Take 100 mg by mouth every 8 (eight) hours 08/05/2024 Active donepezil hydrochloride 10 mg oral tablet (20 sources) Start: 01-23-2024 End: 01-22-2025 take 1 tablet by mouth once daily at bedtime donepezil (ARICEPT) 10 mg tablet Take 1 tablet by mouth daily at bedtime. 90 tablet 3 01/23/2024 01/22/2025 Active esomeprazole 40 mg delayed release oral capsule (20 sources) Proton Pump Inhibitor Start: 04-16-2011 take 1 capsule by mouth once daily esomeprazole (NEXIUM) 40 mg ORAL capsule Take 1 capsule by mouth once daily. 0 04/16/2011 Active take 1 capsule by mouth before m ealtime esomeprazole (NexIUM) [address] capsule Take 20 mg by mouth in the morning. Take before meals. Do not open capsule.. Active fluticasone propionate 0.05 mg/actuat metered dose nasal spray (8 sources) Corticosteroid fluticasone (FLONASE) 50 mcg/actuation nasal spray Use 1 [place] in the nose once daily. Active fluticasone / salmeterol (8 sources) Corticosteroid, beta2-Adrenergic Agonist Start: 011 take 1 puff(s) by mouth twice daily fluticasone-salmeter ol (ADVAIR DISKUS) 250-50 mcg/dose INHALATION DsDv Inhale 1 Puff as instructed twice daily. rinse and gargle mouth with water after each use 0 04/16/2011 Active 14 actuat fluticasone furoate 0.1 mg/actuat / vilanterol 0.025 mg/actuat dry powder inhaler (17 sources) Corticosteroid, beta2-Adrenergic Agonist take 1 dose by inhalation once daily Fluticasone Furoate-Vilanterol (Breo Ellipta) 100-25 MCG/ACT aerosol powder Inhale 1 Dose 1 (one) time each day Active fluticasone furoate-vilanterol (BREO ELLIPTA) 50-25 mcg/dose inhaler (8 sources) fluticasone furoate-vilanterol (BREO ELLIPTA) 50-25 mcg/dose inhaler Inhale 1 Inhalation as instructed once daily. Active fluticasone furo ate-vilanterol (BREO ELLIPTA) 50-25 mcg/dose inhaler Inhale 1 Inhalation as instructed once daily. 0 Active 24 hr isosorbide mononitrate 30 mg extended release oral tablet (10 sources) Nitrate Vasodilator Start: 10-24-2015 take 0.5 tablet by mouth twice daily isosorbide mononitrate ER (IMDUR) 30 mg 24 hr tablet Take 0.5 tablets by mouth twice daily. 10/24/2015 Active isosorbide monon itrate ER (Imdur) 30 MG 24 hr tablet 1 (one) time each day at the same time Active 24 hr loratadine 10 mg / pseudoephedrine sulfate 240 mg extended release oral tablet (20 sources) alpha-Adrenergic Agonist take 1 tablet by mouth once daily loratadine-pseudoephedrine ER (CLARITIN-D 24) 10-240 mg Tb24 Take 1 tablet by mouth once daily. Active take 10-[address] [facility] every twenty-four hours in the morning loratadine-pseudoephedrine ER (Claritin- D 24-hour) 10-240 MG 24 hr tablet Take 1 tablet by mouth in the morning. Do not crush, chew, or split.. Active memantine hydrochloride 10 mg oral tablet (20 sources) X-yvulnv-S-aspartate Receptor Antagonist Start: 04-30-2024 End: 04-30-2025 take 1 tablet by mouth twice daily memantine (NAMENDA) 10 mg tablet Indications: Mild late onset Alzheimer's dementia without behavioral disturbance, psychotic disturbance, mood disturbance, or anxiety (HCC) Take 1 tablet by mouth two times a day. 180 tablet 3 04/30/2024 04/30/2025 Active mometasone furoate 0.05 mg/actuat metered dose nasal spray (20 sources) Corticosteroid Start: 04-16-2011 take 2 spray(s) nasal route once daily mometasone (NASONEX) 50 mcg/Actuation NASAL nasal spray Use 2 Sprays in each nostril once daily. 0 04/16/2011 Active take 2 spray(s) nasa l route in the morning mometasone (Nasonex) 50 MCG/ACT nasal spray Administer 2 sprays into each nostril in the morning. Active Multiple Vitamin (multivitamin) tablet (9 sources) End: 07-19-2024 take 1 tablet by mouth in the morning Multiple Vitamin (multivitamin) tablet Take 1 tablet by mouth in the morning. 07/19/2024 Discontinued (Med list cleanup) take 1 tablet by mouth in the mo rning Multiple Vitamin (multivitamin) tablet Take 1 tablet by mouth in the morning. Active niacin 500 mg oral tablet (9 sources) Nicotinic Acid End: 07-19-2024 take 1 tablet by mouth at mealtime niacin 500 MG tablet Take 500 mg by mouth in the morning. Take with meals. 07/19/2024 Discontinued (Med list cleanup) PANAX GINSENG PO (9 sources) End: 07-19-2024 PANAX GINSENG PO Take by mouth 07/19/2024 Discontinued (Med list cleanup) PANAX GINSENG PO Take by mouth Active potassium 99 mg extended release oral tablet (9 sources) End: 07-19-2024 take 1 tablet by mouth once daily Potassium 99 MG tablet Take 99 mg by mouth 1 (one) time each day 07/19/2024 Discontinued (Med list cleanup) QUEtiapine 25 mg oral tablet (5 sources) Atypical Antipsychotic Start: 09-14-2024 take 1 tablet by mouth at bedtime QUEtiapine (SEROquel) 25 MG tablet Indications: Alzheimer's dementia with mood disturbance, unspecified dementia severity, unspecified timing of dementia onset (CMS/HCC) Take 1 tablet (25 mg) by mouth at bedtime 30 tablet 5 09/14/2024 Active saccharomyces boulardii 250 mg oral capsule (9 sources) End: 07-19-2024 take 1 capsule by mouth in the morning saccharomyces boulardii (Florastor) 250 MG capsule Take 250 mg by mouth in the morning and 250 mg before bedtime. 07/19/2024 Discontinued (Med list cleanup) sertraline 50 mg oral tablet (4 sources) Serotonin Reuptake Inhibitor Start: 01-04-2025 take 1.5 tablets by mouth once daily sertraline (ZOLOFT) 50 mg tablet Take 1.5 tablets by mouth once daily. 60 tablet 5 01/04/2025 Active Start: 10-07-2024 End: 01-04-2025 take 1 tablet by mouth once daily sertraline (ZOLOFT) 50 mg tablet Take 1 tablet by mouth once daily. 30 tablet 5 10/07/2024 01/04/2025 Discontinued Problems Active Problems Problem Classification Problem Date Documented Date Episodic/Chronic Asthma (20 sources) Asthma; Translations: [Unspecified asthma, uncomplicated] Onset: 04-16-2011 04-16-2011 Chronic Chronic obstructive pulmonary disease and bronchiectasis (1 source) Chronic obstructive pulmonary disease, unspecified; Translations: [Chronic obstructive pulmonary disease, unspecified] Onset: 02-10-2025 Chronic Coronary atherosclerosis and other heart disease (20 sources) Coronary arteriosclerosis; Translations: [Atherosclerotic heart disease of [place] coronary artery without angina pectoris] Onset: 06-21-2014 06-30-2023 Chronic Delirium, dementia, and amnestic and other cognitive disorders (20 sources) Senile dementia; 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] Onset: 02-15-2024 01-23-2024 Chronic E Codes: Fall (1 source) Fall Onset: 07-29-2024 Esophageal disorders (20 sources) Gastroesophageal reflux disease; Translations: [Gastro-esophageal reflux disease without esophagitis] Onset: 04-16-2011 04-16-2011 Chronic Essential hypertension (20 sources) Essential hypertension; Translations: [Essential (primary) hypertension] Onset: 06-30-2023 06-30-2023 Chronic Fracture of neck of femur (hip) (1 source) Nondisplaced fracture of greater trochanter of left femur, initial encounter for closed fracture; Translations: [Nondisplaced fracture of greater trochanter of left femur, initial encounter for closed fracture] Onset: 02-09-2025 Episodic Malaise and fatigue (1 source) Weakness; Translations: [Weakness] Onset: 02-10-2025 Episodic Osteoarthritis (8 sources) Osteoarthritis of knee; Translations: [Osteoarthritis of knee, unspecified] Onset: 04-16-2011 04-16-2011 Chronic Other connective tissue disease (1 source) Repeated falls; Translations: [Repeated falls] Onset: 02-10-2025 Episodic Other upper respiratory disease (17 sources) 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; Translations: [Other allergic rhinitis] Onset: 06-30-2023 06-30-2023 Chronic Other upper respiratory disease (17 sources) Seasonal allergy; Translations: [Other seasonal allergic rhinitis] Onset: 05-07-2018 06-30-2023 Chronic Screening and history of mental health and substance abuse codes (1 source) Personal history of other mental and behavioral disorders; Translations: [Personal history of other mental and behavioral disorders] Onset: 02-09-2025 Episodic Unclassified (1 source) Established Patient Follow-Up Onset: 04-30-2024 Unclassified (1 source) Mild late onset Alzheimer's dementia without behavioral disturbance, psychotic disturbance, mood disturbance, or anxiety (HCC); Translations: [Mild late onset Alzheimer's dementia without behavioral disturbance, psychotic disturbance, mood disturbance, or anxiety (HCC)] Onset: 02-15-2024 Unclassified (1 source) Weakness - Generalized Onset: 02-09-2025 Unclassified (1 source) ill Onset: 07-29-2024 Past or Other Problems Problem Classification Problem Date Documented Date Episodic/Chronic Chronic obstructive pulmonary disease and bronchiectasis (1 source) Bronchitis, not specified as acute or chronic; Translations: [Bronchitis, not specified as acute or chronic] Onset: 08-05-2024 Episodic E Codes: Fall (2 sources) Unspecified fall due to ice and snow, initial encounter; Translations: [Unspecified fall, initial encounter] Onset: 07-29-2024 Episodic Mood disorders (17 sources) Mood disorders Onset: 06-30-2023 Resolved: 07-19-2024 06-30-2023 Other connective tissue disease (20 sources) Recurrent falls ; Translations: [Repeated falls] Onset: 05-27-2024 05-27-2024 Episodic Other lower respiratory disease (1 source) Shortness of breath; Translations: [Shortness of breath] Onset: 08-05-2024 Episodic Other lower respiratory disease (1 source) Shortness of breath Onset: 08-05-2024 Episodic Other non-traumatic joint disorders (1 source) Pain in right hip; Translations: [Pain in right hip] Onset: 07-29-2024 Episodic Other screening for suspected conditions (not mental disorders or infectious disease) (8 sources) Cardiovascular stress test abnormal; Translations: [Abnormal result of other cardiovascular function study] Onset: 04-16-2011 07-09-2021 Episodic Other upper respiratory infections (10 sources) Upper respiratory infection; Translations: [Acute upper respiratory infection, unspecified] Onset: 08-05-2024 Resolved: 09-14-2024 08-05-2024 Episodic Unclassified (14 sources) Onset: 06-14-2024 06-14-2024 Results Test Name Value Interpretation Reference Range Facility CBC WITH AUTO DIFFERENTIALon 02-11-2025 BASOPHILS ABSOLUTE COUNT (10*3/UL) BY AUTOMATED COUNT 0.1 10*3/uL Normal 0.0-0.2 [facility] Comment on above: Performed By: #### C BCA, PINR, 91539-3, CMP, 32998-8, 68977-2 #### [facility] ([id number]) [address] [place] [address] 72065 BASOPHILS RELATIVE PERCENT BY AUTOMATED COUNT 1.2 % Normal [facility] Comment on above: Performed By: #### C BCA, PINR, 18482-2, CMP, 56618-9, 16388-4 #### [facility] ([id number]) [address] [place] [address] 43762 CELLAVISION DIFFERENTIAL TYPE AUTOMATED DIFFERENTIAL Normal [facility] Comment on above: Performed By: #### C BCA, PINR, 29243-8, CMP, 94619-3, 75176-4 #### [facility] ([id number]) [address] [place] [address] 63172 Eosinophils (Bld) [#/Vol] 0.2 10*3/uL Normal 0.0-0.4 [facility] Comment on above: Performed By: #### C BCA, PINR, 40848-6, CMP, 27987-1, 03366-0 #### [facility] ([id number]) [address] [place] [address] 09972 EOSINOPHILS RELATIVE PERCENT BY AUTOMATED COUNT 3.5 % Normal [facility] Comment on above: Performed By: #### C BCA, PINR, 05928-5, CMP, 44087-4, 89246-8 #### [facility] ([id number]) [address] [place] [address] 03377 Erythrocyte distribution width (RBC) [Ratio] 14.3 % Normal 11.5-15 [facility] Comment on above: Performed By: #### C BCA, PINR, 98113-3, CMP, 23229-2, 49139-8 #### [facility] ([id number]) [address] [place] [address] 40699 Hematocrit (Bld) [Volume fraction] 32.4 % Low 39-50 [facility] Comment on above: Performed By: #### C BCA, PINR, 76884-8, CMP, 96626-9, 86243-2 #### [facility] ([id number]) [address] [place] [address] 99716 Hemoglobin (Bld) [Mass/Vol] 11.1 g/dL Low 13-17 [facility] Comment on above: Performed By: #### C BCA, PINR, 42747-3, CMP, 27259-3, 89050-5 #### [facility] ([id number]) [address] [place] [address] 25889 LYMPHOCYTES ABSOLUTE COUNT (10*3/UL) BY AUTOMATED COUNT 1.0 10*3/uL Normal 1.0-3.5 [facility] Comment on above: Performed By: #### C BCA, PINR, 28994-3, CMP, 72160-3, 12153-8 #### [facility] ([id number]) [address] [place] [address] 48425 LYMPHOCYTES RELATIVE PERCENT BY AUTOMATED COUNT 17.6 % Normal [facility] Comment on above: Performed By: #### C BCA, PINR, 72225-0, CMP, 39022-8, 45592-8 #### [facility] ([id number]) [address] [place] [address] 07017 MCH (RBC) [Entitic mass] 31.4 pg Normal 27-34 [facility] Comment on above: Performed By: #### C BCA, PINR, 29142-2, CMP, 90178-2, 72713-0 #### [facility] ([id number]) [address] [place] [address] 84575 MCHC (RBC) [Mass/Vol] 34.2 g/dL Normal 32-36 [facility] Comment on above: Performed By: #### C BCA, PINR, 77386-4, CMP, 97813-1, 47131-7 #### [facility] ([id number]) [address] [place] [address] 37787 MCV (RBC) [Entitic vol] 92 fL Normal 80-100 [facility] Comment on above: Performed By: #### C BCA, PINR, 13736-1, CMP, 21378-9, 73437-9 #### [facility] ([id number]) [address] [place] [address] 73638 MONOCYTES ABSOLUTE COUNT (10*3/UL) BY AUTOMATED COUNT 0.7 10*3/uL Normal 0.0-0.9 [facility] Comment on above: Performed By: #### C BCA, PINR, 44192-7, CMP, 17157-0, 35400-8 #### [facility] ([id number]) [address] [place] [address] 20186 MONOCYTES RELATIVE PERCENT BY AUTOMATED COUNT 12.2 % Normal [facility] Comment on above: Performed By: #### C BCA, PINR, 80653-0, CMP, 56759-3, 15330-1 #### [facility] ([id number]) [address] [place] [address] 71078 NEUTROPHILS ABSOLUTE COUNT BY AUTOMATED COUNT 3.6 10*3/uL Normal 1.5-6.6 [facility] Comment on above: Performed By: #### C BCA, PINR, 58416-5, CMP, 90552-0, 55245-6 #### [facility] ([id number]) [address] [place] [address] 76182 NEUTROPHILS RELATIVE PERCENT BY AUTOMATED COUNT 65.5 % Normal [facility] Comment on above: Performed By: #### C BCA, PINR, 53899-9, CMP, 32893-6, 92756-4 #### [facility] ([id number]) [address] [place] [address] 92834 Platelet mean volume (Bld) [Entitic vol] 8.3 fL Normal 7-12 [facility] Comment on above: Performed By: #### C BCA, PINR, 75316-6, CMP, 01633-0, 31320-1 #### [facility] ([id number]) [address] [place] [address] 90864 Platelets (Bld) [#/Vol] 184 10*3/uL Normal 150-450 [facility] Comment on above: Performed By: #### C BCA, PINR, 46088-8, CMP, 38785-4, 57797-7 #### [facility] ([id number]) [address] [place] [address] 50261 RBC COUNT 3.53 X10E12/L Low 4.1-5.7 [facility] Comment on above: Performed By: #### C BCA, PINR, 89688-7, CMP, 72299-8, 33107-0 #### [facility] ([id number]) [address] [place] [address] 50989 WBC (Bld) [#/Vol] 5.4 10*3/uL Normal 4-11 [facility] Comment on above: Performed By: #### C BCA, PINR, 38315-8, CMP, 46192-3, 72648-4 #### [facility] ([id number]) [address] [place] [address] 50354 COMPREHENSIVE METABOLIC PANE Tim 02-11-2025 Albumin [Mass/Vol] 3.0 g/dL Low 3.2-5.3 [facility] Comment on above: Performed By: #### C BCA, PINR, 87657-8, CMP, 02266-5, 14854-9 #### [facility] ([id number]) [address] [place] [address] 82840 ALP [Catalytic activity/Vol] 84 U/L Normal 39-130 [facility] Comment on above: Performed By: #### C BCA, PINR, 08637-7, CMP, 77098-6, 37812-5 #### [facility] ([id number]) [address] [place] [address] 91265 ALT [Catalytic activity/Vol] 13 U/L Normal <=40 [facility] Comment on above: Performed By: #### C BCA, PINR, 37332-6, CMP, 57632-6, 54618-4 #### [facility] ([id number]) [address] [place] [address] 11460 Anion gap [Moles/Vol] 5 mmol/L Normal 5-15 [facility] Comment on above: Performed By: #### C BCA, PINR, 76528-5, CMP, 53440-0, 25083-4 #### [facility] ([id number]) [address] [place] [address] 48334 AST [Catalytic activity/Vol] 13 U/L Normal <=41 [facility] Comment on above: Performed By: #### C BCA, PINR, 07919-4, CMP, 73274-4, 49129-4 #### [facility] ([id number]) [address] [place] [address] 83248 Bilirubin [Mass/Vol] 0.8 mg/dL Normal 0.3-1.2 [facility] Comment on above: Performed By: #### C BCA, PINR, 13791-8, CMP, 95387-9, 87246-0 #### [facility] ([id number]) [address] [place] [address] 91912 Calcium [Mass/Vol] 8.0 mg/dL Low 8.5-10.5 [facility] Comment on above: Performed By: #### C BCA, PINR, 98458-3, CMP, 65465-6, 43892-8 #### [facility] ([id number]) [address] [place] [address] 65565 Chloride [Moles/Vol] 107 mmol/L Normal 98-109 [facility] Comment on above: Performed By: #### C BCA, PINR, 14181-0, CMP, 11293-5, 88865-3 #### [facility] ([id number]) [address] [place] [address] 74215 CO2 [Moles/Vol] 26 mmol/L Normal 22-32 [facility] Comment on above: Performed By: #### C BCA, PINR, 57088-8, CMP, 25903-6, 32399-1 #### [facility] ([id number]) [address] [place] [address] 42994 Creatinine [Mass/Vol] 0.73 mg/dL Normal 0.70-1.20 [facility] Comment on above: Result Comment: METH OD TRACEABLE TO IDMS STANDARD Performed By: #### C BCA, PINR, 66220-3, CMP, 15085-1, 51673-0 #### [facility] ([id number]) [address] [place] [address] 64152 GFR/1.73 sq M.predicted among non-blacks MDRD (S/P/Bld) [Vol rate/Area] 88 mL/min/{1.73_m2} Normal >=60 [facility] Comment on above: Result Comment: eGFR not reported due to non-numeric value for Creatinine. Reported eGFR is based on the CKD-EPI 202 equation that does not use a race coefficient. Performed By: #### C BCA, PINR, 12682-6, [facility], 08744-7, 59094-1 #### [facility] ([id number]) [address] [place] [address] 76106 Glucose [Mass/Vol] 102 mg/dL High 65-99 [facility] Comment on above: Performed By: #### C BCA, PINR, 05556-8, [facility], 64176-7, 12728-7 #### [facility] ([id number]) [address] [place] [address] 64468 Potassium [Moles/Vol] 3.4 mmol/L Low 3.5-5.0 [facility] Comment on above: Performed By: #### C BCA, PINR, 13505-3, [facility], 65374-2, 13522-9 #### [facility] ([id number]) [address] [place] [address] 25092 Protein [Mass/Vol] 5.4 g/dL Low 6.0-8.0 [facility] Comment on above: Performed By: #### C BCA, PINR, 98494-0, [facility], 75126-1, 92480-8 #### [facility] ([id number]) [address] [place] [address] 28858 Sodium [Moles/Vol] 138 mmol/L Normal 134-146 [facility] Comment on above: Performed By: #### C BCA, PINR, 16291-9, CMP, 44612-6, 19878-2 #### [facility] ([id number]) [address] [place] [address] 27301 Urea nitrogen [Mass/Vol] 20 mg/dL Normal 5-27 [facility] Comment on above: Performed By: #### C BCA, PINR, 44440-4, CMP, 15024-2, 49676-6 #### [facility] ([id number]) [address] [place] [address] 34376 MAGNESIUMon 02-11-2025 Magnesium [Mass/Vol] 1.9 mg/dL Normal 1.8-2.6 [facility] Comment on above: Performed By: #### C BCA, PINR, 93757-3, CMP, 95881-8, 60903-9 #### [facility] ([id number]) [address] [place], [place] [id number] POTASSIUMon 02-11-2025 Potassium [Moles/Vol] 4.0 mmol/L Normal 3.5-5.0 [facility] Comment on above: Performed By: #### C BCA, PINR, 39000-6, CMP, 72696-4, 08729-6 #### [facility] ([id number]) [address] [place] [address] 49350 CBC WITH AUTO DIFFERENTIALon 02-10-2025 BASOPHILS ABSOLUTE COUNT (10*3/UL) BY AUTOMATED COUNT 0.1 10*3/uL Normal 0.0-0.2 [facility] Comment on above: Performed By: #### C BCA, PINR, 47730-2, CMP, 86871-2, 22660-8 #### [facility] ([id number]) [address] [place] [address] 91340 BASOPHILS RELATIVE PERCENT BY AUTOMATED COUNT 0.9 % Normal [facility] Comment on above: Performed By: #### C BCA, PINR, 80386-9, CMP, 72118-4, 26341-1 #### [facility] ([id number]) [address] [place] [address] 18638 CELLAVISION DIFFERENTIAL TYPE AUTOMATED DIFFERENTIAL Normal [facility] Comment on above: Performed By: #### C BCA, PINR, 66357-8, CMP, 36467-8, 80306-1 #### [facility] ([id number]) [address] [place] [address] 71909 Eosinophils (Bld) [#/Vol] 0.2 10*3/uL Normal 0.0-0.4 [facility] Comment on above: Performed By: #### C BCA, PINR, 07144-8, CMP, 19951-0, 35687-5 #### [facility] ([id number]) [address] [place] [address] 99793 EOSINOPHILS RELATIVE PERCENT BY AUTOMATED COUNT 2.4 % Normal [facility] Comment on above: Performed By: #### C BCA, PINR, 81456-6, CMP, 09936-5, 51895-7 #### [facility] ([id number]) [address] [place] [address] 12317 Erythrocyte distribution width (RBC) [Ratio] 13.7 % Normal 11.5-15 [facility] Comment on above: Performed By: #### C BCA, PINR, 59866-9, CMP, 15115-1, 22988-0 #### [facility] ([id number]) [address] [place] [address] 73789 Hematocrit (Bld) [Volume fraction] 35.8 % Low 39-50 [facility] Comment on above: Performed By: #### C BCA, PINR, 22345-6, CMP, 65225-3, 84945-5 #### [facility] ([id number]) [address] [place] [address] 52533 Hemoglobin (Bld) [Mass/Vol] 12.3 g/dL Low 13-17 [facility] Comment on above: Performed By: #### C BCA, PINR, 10036-3, CMP, 19982-4, 30217-7 #### [facility] ([id number]) [address] [place] [address] 71168 LYMPHOCYTES ABSOLUTE COUNT (10*3/UL) BY AUTOMATED COUNT 0.8 10*3/uL Low 1.0-3.5 [facility] Comment on above: Performed By: #### C BCA, PINR, 81353-3, CMP, 50129-5, 18795-8 #### [facility] ([id number]) [address] [place] [address] 46644 LYMPHOCYTES RELATIVE PERCENT BY AUTOMATED COUNT 11.1 % Normal [facility] Comment on above: Performed By: #### C BCA, PINR, 68722-9, CMP, 02418-2, 28698-8 #### [facility] ([id number]) [address] [place] [address] 09252 MCH (RBC) [Entitic mass] 31.3 pg Normal 27-34 [facility] Comment on above: Performed By: #### C BCA, PINR, 02904-1, CMP, 63292-9, 44997-1 #### [facility] ([id number]) [address] [place] [address] 57150 MCHC (RBC) [Mass/Vol] 34.3 g/dL Normal 32-36 [facility] Comment on above: Performed By: #### C BCA, PINR, 80795-8, CMP, 49144-8, 15456-6 #### [facility] ([id number]) [address] [place] [address] 82990 MCV (RBC) [Entitic vol] 91 fL Normal 80-100 [facility] Comment on above: Performed By: #### C BCA, PINR, 74202-9, CMP, 03155-6, 54404-5 #### [facility] ([id number]) [address] [place] [address] 71447 MONOCYTES ABSOLUTE COUNT (10*3/UL) BY AUTOMATED COUNT 0.7 10*3/uL Normal 0.0-0.9 [facility] Comment on above: Performed By: #### C BCA, PINR, 56230-2, CMP, 85138-2, 61099-7 #### [facility] ([id number]) [address] [place] [address] 21830 MONOCYTES RELATIVE PERCENT BY AUTOMATED COUNT 10.3 % Normal [facility] Comment on above: Performed By: #### C BCA, PINR, 41624-9, CMP, 37575-1, 74683-3 #### [facility] ([id number]) [address] [place] [address] 49185 NEUTROPHILS ABSOLUTE COUNT BY AUTOMATED COUNT 5.3 10*3/uL Normal 1.5-6.6 [facility] Comment on above: Performed By: #### C BCA, PINR, 06765-9, CMP, 41714-5, 26307-0 #### [facility] ([id number]) [address] [place] [address] 98949 NEUTROPHILS RELATIVE PERCENT BY AUTOMATED COUNT 75.3 % Normal [facility] Comment on above: Performed By: #### C BCA, PINR, 32570-0, CMP, 10237-9, 97616-1 #### [facility] ([id number]) [address] [place] [address] 13027 Platelet mean volume (Bld) [Entitic vol] 8.2 fL Normal 7-12 [facility] Comment on above: Performed By: #### C BCA, PINR, 25182-0, CMP, 10633-1, 38438-5 #### [facility] ([id number]) [address] [place] [address] 81609 Platelets (Bld) [#/Vol] 208 10*3/uL Normal 150-450 [facility] Comment on above: Performed By: #### C BCA, PINR, 00863-1, CMP, 84824-6, 73169-3 #### [facility] ([id number]) [address] [place] [address] 23349 RBC COUNT 3.93 X10E12/L Low 4.1-5.7 [facility] Comment on above: Performed By: #### C BCA, PINR, 15068-8, CMP, 89981-3, 71642-8 #### [facility] ([id number]) [address] [place] [address] 10838 WBC (Bld) [#/Vol] 7.0 10*3/uL Normal 4-11 [facility] Comment on above: Performed By: #### C BCA, PINR, 68628-0, CMP, 96113-4, 76874-5 #### [facility] ([id number]) [address] [place] [address] 24061 COMPREHENSIVE METABOLIC PANE Tim 02-10-2025 Albumin [Mass/Vol] 3.2 g/dL Normal 3.2-5.3 [facility] Comment on above: Performed By: #### C BCA, PINR, 70931-1, CMP, 93366-6, 39147-7 #### [facility] ([id number]) [address] [place] [address] 43789 ALP [Catalytic activity/Vol] 95 U/L Normal 39-130 [facility] Comment on above: Performed By: #### C BCA, PINR, 31999-4, CMP, 81211-1, 69454-7 #### [facility] ([id number]) [address] [place] [address] 21844 ALT [Catalytic activity/Vol] 15 U/L Normal <=40 [facility] Comment on above: Performed By: #### C BCA, PINR, 36325-8, CMP, 47622-4, 85115-8 #### [facility] ([id number]) [address] [place] [address] 68983 Anion gap [Moles/Vol] 9 mmol/L Normal 5-15 [facility] Comment on above: Performed By: #### C BCA, PINR, 38363-3, CMP, 38103-2, 22474-0 #### [facility] ([id number]) [address] [place] [address] 99188 AST [Catalytic activity/Vol] 15 U/L Normal <=41 [facility] Comment on above: Performed By: #### C BCA, PINR, 49821-5, CMP, 69352-0, 36410-1 #### [facility] ([id number]) [address] [place] [address] 22032 Bilirubin [Mass/Vol] 0.7 mg/dL Normal 0.3-1.2 [facility] Comment on above: Performed By: #### C BCA, PINR, 56938-6, CMP, 68090-9, 71794-2 #### [facility] ([id number]) [address] [place] [address] 64215 Calcium [Mass/Vol] 8.2 mg/dL Low 8.5-10.5 [facility] Comment on above: Performed By: #### C BCA, PINR, 87667-1, CMP, 20890-5, 10482-5 #### [facility] ([id number]) [address] [place] [address] 97339 Chloride [Moles/Vol] 107 mmol/L Normal 98-109 [facility] Comment on above: Performed By: #### C BCA, PINR, 73033-2, CMP, 50441-7, 57912-4 #### [facility] ([id number]) [address] [place] [address] 25621 CO2 [Moles/Vol] 24 mmol/L Normal 22-32 [facility] Comment on above: Performed By: #### C BCA, PINR, 22575-1, CMP, 79017-3, 94267-0 #### [facility] ([id number]) [address] [place] [address] 58526 Creatinine [Mass/Vol] 0.84 mg/dL Normal 0.70-1.20 [facility] Comment on above: Result Comment: METH OD TRACEABLE TO IDMS STANDARD Performed By: #### C BCA, PINR, 90122-4, CMP, 31428-1, 04009-4 #### [facility] ([id number]) [address] [place] [address] 87400 GFR/1.73 sq M.predicted among non-blacks MDRD (S/P/Bld) [Vol rate/Area] 84 mL/min/{1.73_m2} Normal >=60 [facility] Comment on above: Result Comment: eGFR not reported due to non-numeric value for Creatinine. Reported eGFR is based on the CKD-EPI 2021 equation that does not use a race coefficient. Performed By: #### C BCA, PINR, 18203-4, CMP, 35800-6, 66820-5 #### [facility] ([id number]) [address] [place] [address] 60449 Glucose [Mass/Vol] 104 mg/dL High 65-99 [facility] Comment on above: Performed By: #### C BCA, PINR, 80915-9, CMP, 59608-1, 51543-9 #### [facility] ([id number]) [address] [place] [address] 52619 Potassium [Moles/Vol] 3.5 mmol/L Normal 3.5-5.0 [facility] Comment on above: Performed By: #### C BCA, PINR, 91241-6, CMP, 05968-4, 54970-9 #### [facility] ([id number]) [address] [place] [address] 33184 Protein [Mass/Vol] 5.7 g/dL Low 6.0-8.0 [facility] Comment on above: Performed By: #### C BCA, PINR, 90363-6, CMP, 34933-0, 72735-8 #### [facility] ([id number]) [address] [place] [address] 17602 Sodium [Moles/Vol] 140 mmol/L Normal 134-146 [facility] Comment on above: Performed By: #### C BCA, PINR, 75801-1, CMP, 40766-0, 68926-6 #### [facility] ([id number]) [address] [place] [address] 23886 Urea nitrogen [Mass/Vol] 22 mg/dL Normal 5-27 [facility] Comment on above: Performed By: #### C BCA, PINR, 62346-4, CMP, 43076-0, 09178-6 #### [facility] ([id number]) [address] [place] [address] 64845 MAGNESIUMon 02-10-2025 Magnesium [Mass/Vol] 1.8 mg/dL Normal 1.8-2.6 [facility] Comment on above: Performed By: #### C BCA, PINR, 55697-2, CMP, 76314-9, 48011-9 #### [facility] ([id number]) [address] [place] [address] 79492 CBC WITH AUTO DIFFERENTIALon 02-09-2025 BASOPHILS ABSOLUTE COUNT (10*3/UL) BY AUTOMATED COUNT 0.1 10*3/uL Normal 0.0-0.2 [facility] Comment on above: Performed By: #### C BCA, PINR, 36651-8, CMP, 89464-1, 15179-2 #### [facility] ([id number]) [address] [place] [address] 09773 BASOPHILS RELATIVE PERCENT BY AUTOMATED COUNT 2.7 % Normal [facility] Comment on above: Performed By: #### C BCA, PINR, 37706-2, CMP, 39842-6, 50239-4 #### [facility] ([id number]) [address] [place] [address] 46045 CELLAVISION DIFFERENTIAL TYPE AUTOMATED DIFFERENTIAL Normal [facility] Comment on above: Performed By: #### C BCA, PINR, 85110-8, CMP, 04548-5, 23261-8 #### [facility] ([id number]) [address] [place] [address] 90697 Eosinophils (Bld) [#/Vol] 0.1 10*3/uL Normal 0.0-0.4 [facility] Comment on above: Performed By: #### C BCA, PINR, 33141-6, CMP, 03819-4, 73610-2 #### [facility] ([id number]) [address] [place] [address] 40831 EOSINOPHILS RELATIVE PERCENT BY AUTOMATED COUNT 2.4 % Normal [facility] Comment on above: Performed By: #### C BCA, PINR, 16836-5, CMP, 58324-9, 08834-7 #### [facility] ([id number]) [address] [place] [address] 95954 Erythrocyte distribution width (RBC) [Ratio] 14.0 % Normal 11.5-15 [facility] Comment on above: Performed By: #### C BCA, PINR, 00348-2, CMP, 58162-9, 14220-1 #### [facility] ([id number]) [address] [place] [address] 24990 Hematocrit (Bld) [Volume fraction] 39.6 % Normal 39-50 [facility] Comment on above: Performed By: #### C BCA, PINR, 74548-0, CMP, 45799-3, 20156-0 #### [facility] ([id number]) [address] [place] [address] 27577 Hemoglobin (Bld) [Mass/Vol] 13.5 g/dL Normal 13-17 [facility] Comment on above: Performed By: #### C BCA, PINR, 01073-6, CMP, 35908-2, 69638-7 #### [facility] ([id number]) [address] [place] [address] 55126 LYMPHOCYTES ABSOLUTE COUNT (10*3/UL) BY AUTOMATED COUNT 0.7 10*3/uL Low 1.0-3.5 [facility] Comment on above: Performed By: #### C BCA, PINR, 32037-3, CMP, 55777-1, 22151-9 #### [facility] ([id number]) [address] [place] [address] 65513 LYMPHOCYTES RELATIVE PERCENT BY AUTOMATED COUNT 12.1 % Normal [facility] Comment on above: Performed By: #### C BCA, PINR, 94010-1, CMP, 06882-2, 26654-5 #### [facility] ([id number]) [address] [place] [address] 71143 MCH (RBC) [Entitic mass] 31.0 pg Normal 27-34 [facility] Comment on above: Performed By: #### C BCA, PINR, 70082-0, CMP, 17229-3, 65200-9 #### [facility] ([id number]) [address] [place] [address] 68764 MCHC (RBC) [Mass/Vol] 34.2 g/dL Normal 32-36 [facility] Comment on above: Performed By: #### C BCA, PINR, 75378-5, CMP, 59868-0, 61112-5 #### [facility] ([id number]) [address] [place] [address] 25789 MCV (RBC) [Entitic vol] 91 fL Normal 80-100 [facility] Comment on above: Performed By: #### C BCA, PINR, 40712-7, CMP, 71824-5, 88237-3 #### [facility] ([id number]) [address] [place] [address] 02962 MONOCYTES ABSOLUTE COUNT (10*3/UL) BY AUTOMATED COUNT 0.5 10*3/uL Normal 0.0-0.9 [facility] Comment on above: Performed By: #### C BCA, PINR, 02877-2, CMP, 83991-0, 35083-6 #### [facility] ([id number]) [address] [place] [address] 43691 MONOCYTES RELATIVE PERCENT BY AUTOMATED COUNT 9.2 % Normal [facility] Comment on above: Performed By: #### C BCA, PINR, 57014-0, CMP, 12221-0, 29931-2 #### [facility] ([id number]) [address] [place] [address] 42366 NEUTROPHILS ABSOLUTE COUNT BY AUTOMATED COUNT 4.0 10*3/uL Normal 1.5-6.6 [facility] Comment on above: Performed By: #### C BCA, PINR, 87841-1, CMP, 75933-7, 99051-2 #### [facility] ([id number]) [address] [place] [address] 83641 NEUTROPHILS RELATIVE PERCENT BY AUTOMATED COUNT 73.6 % Normal [facility] Comment on above: Performed By: #### C BCA, PINR, 95956-0, CMP, 34921-6, 68821-0 #### [facility] ([id number]) [address] [place] [address] 29202 Platelet mean volume (Bld) [Entitic vol] 8.1 fL Normal 7-12 [facility] Comment on above: Performed By: #### C BCA, PINR, 67166-0, CMP, 28701-9, 66571-8 #### [facility] ([id number]) [address] [place] [address] 38781 Platelets (Bld) [#/Vol] 262 10*3/uL Normal 150-450 [facility] Comment on above: Performed By: #### C BCA, PINR, 44869-6, CMP, 43270-1, 81173-7 #### [facility] ([id number]) [address] [place] [address] 70218 RBC COUNT 4.36 X10E12/L Normal 4.1-5.7 [facility] Comment on above: Performed By: #### C BCA, PINR, 95561-3, CMP, 99313-6, 03242-4 #### [facility] ([id number]) [address] [place] [address] 25961 WBC (Bld) [#/Vol] 5.4 10*3/uL Normal 4-11 [facility] Comment on above: Performed By: #### C BCA, PINR, 31283-8, CMP, 17322-0, 55727-9 #### [facility] ([id number]) [address] [place] [address] 87232 COMPREHENSIVE METABOLIC PANE Tim 02-09-2025 Albumin [Mass/Vol] 3.8 g/dL Normal 3.2-5.3 [facility] Comment on above: Performed By: #### C BCA, PINR, 30929-9, CMP, 20082-1, 61601-6 #### [facility] ([id number]) [address] [place] [address] 64521 ALP [Catalytic activity/Vol] 108 U/L Normal 39-130 [facility] Comment on above: Performed By: #### C BCA, PINR, 79837-2, CMP, 03049-3, 73103-3 #### [facility] ([id number]) [address] [place] [address] 55610 ALT [Catalytic activity/Vol] 19 U/L Normal <=40 [facility] Comment on above: Performed By: #### C BCA, PINR, 35494-3, CMP, 07615-0, 64515-5 #### [facility] ([id number]) [address] [place] [address] 46830 Anion gap [Moles/Vol] 4 mmol/L Low 5-15 [facility] Comment on above: Performed By: #### C BCA, PINR, 72425-3, CMP, 96114-3, 17396-5 #### [facility] ([id number]) [address] [place] [address] 94931 AST [Catalytic activity/Vol] 20 U/L Normal <=41 [facility] Comment on above: Performed By: #### C BCA, PINR, 89610-0, CMP, 23212-9, 84804-8 #### [facility] ([id number]) [address] [place] [address] 19565 Bilirubin [Mass/Vol] 0.2 mg/dL Low 0.3-1.2 [facility] Comment on above: Performed By: #### C BCA, PINR, 57797-1, CMP, 14075-8, 06656-6 #### [facility] ([id number]) [address] [place] [address] 16854 Calcium [Mass/Vol] 8.3 mg/dL Low 8.5-10.5 [facility] Comment on above: Performed By: #### C BCA, PINR, 94401-0, CMP, 26576-1, 27669-3 #### [facility] ([id number]) [address] [place] [address] 53301 Chloride [Moles/Vol] 111 mmol/L High 98-109 [facility] Comment on above: Performed By: #### C BCA, PINR, 72999-2, CMP, 76422-2, 43521-0 #### [facility] ([id number]) [address] [place] [address] 09080 CO2 [Moles/Vol] 22 mmol/L Normal 22-32 [facility] Comment on above: Performed By: #### C BCA, PINR, 04845-0, CMP, 83101-4, 33196-3 #### [facility] ([id number]) [address] [place] [address] 16454 Creatinine [Mass/Vol] 0.84 mg/dL Normal 0.70-1.20 [facility] Comment on above: Result Comment: METH OD TRACEABLE TO IDMS STANDARD Performed By: #### C MINDY, PINR, 42416-6, CMP, 85120-6, 40576-5 #### [facility] ([id number]) [address] [place] [address] 03587 GFR/1.73 sq M.predicted among non-blacks MDRD (S/P/Bld) [Vol rate/Area] 84 mL/min/{1.73_m2} Normal >=60 [facility] Comment on above: Result Comment: eGFR not reported due to non-numeric value for Creatinine. Reported eGFR is based on the CKD-EPI 202 equation that does not use a race coefficient. Performed By: #### C BCA, PINR, 60522-8, CMP, 48189-6, 17324-8 #### [facility] ([id number]) [address] [place] [address] 70450 Glucose [Mass/Vol] 124 mg/dL High 65-99 [facility] Comment on above: Performed By: #### C BCA, PINR, 90301-1, CMP, 32871-8, 58706-3 #### [facility] ([id number]) [address] [place] [address] 90373 Potassium [Moles/Vol] 3.5 mmol/L Normal 3.5-5.0 [facility] Comment on above: Performed By: #### C BCA, PINR, 21080-2, CMP, 88020-3, 33554-8 #### [facility] ([id number]) [address] [place] [address] 40516 Protein [Mass/Vol] 6.4 g/dL Normal 6.0-8.0 [facility] Comment on above: Performed By: #### C BCA, PINR, 07339-5, CMP, 80345-9, 57980-9 #### [facility] ([id number]) [address] [place] [address] 40372 Sodium [Moles/Vol] 137 mmol/L Normal 134-146 [facility] Comment on above: Performed By: #### C BCA, PINR, 55562-9, CMP, 90394-8, 42352-4 #### [facility] ([id number]) [address] [place] [address] 95137 Urea nitrogen [Mass/Vol] 21 mg/dL Normal 5-27 [facility] Comment on above: Performed By: #### C BCA, PINR, 70066-0, CMP, 36975-3, 84577-0 #### [facility] ([id number]) [address] [place] [address] BRAIN WO CONTon 5 CT BRAIN WO CONT CT BRAIN WO CONT CLINICAL INFORMATION: fall head injury TECHNIQUE: CT [...] Corby Eid MD on 02/09/2025 3:26 PM Normal [facility] CT CERVICAL SPINE WO CONTon 02-09-2025 CT CERVICAL SPINE WO CONT CT CERVICAL SPINE WO CONT HISTORY: An 89-year-old male with a history [...] Raul Stone MD on 02/09/2025 3:41 PM Normal [facility] CT HIP LT WO CONTon 02-10-[address] HIP LT WO CONT CT HIP LT WO CONT CT HIP LT WO CONT Clinical history:fall, [...] Mir Mccartney MD on 02/09/2025 4:08 PM Normal [facility] MAGNESIUMon 02-09-2025 Magnesium [Mass/Vol] 2.0 mg/dL Normal 1.8-2.6 [facility] Comment on above: Performed By: #### C BCA, PINR, 47217-0, CMP, 55942-6, 24534-3 #### [facility] ([id number]) [address] [place] [address] PREALBUMINon 02-09-2025 Prealbumin [Mass/Vol] 20 mg/dL Normal 18-45 [facility] Comment on above: Performed By: #### C BCA, PINR, 21579-3, CMP, 70472-9, 78376-0 #### [facility] ([id number]) [address] [place] [address]00 REPEATED ABORHon 02-09-2025 ABO_INTEP A Normal [facility] Comment on above: Performed By: #### C BCA, PINR, 08159-4, CMP, 70077-0, 62428-5 #### [facility] ([id number]) [address] [place] [address] 32787 RH_INTEP Negative Normal [facility] Comment on above: Performed By: #### C BCA, PINR, 93950-1, CMP, 45426-9, 41908-7 #### [facility] ([id number]) [address] [place] [address], [place] [address] TROP I, HIGH SENSITIVITY 1 H OURon 02-09-2025 TROPONIN I, HIGH SENSITIVITY 4 ng/L Normal <21 [facility] Comment on above: Performed By: #### C BCA, PINR, 40723-7, CMP, 03127-8, 95181-0 #### [facility] ([id number]) [address] [place] [address], [place] [address] TROPONIN I, HIGH SENSITIVITY 0 HOURon 02-09-2025 TROPONIN I, HIGH SENSITIVITY 4 ng/L Normal <21 [facility] Comment on above: Performed By: #### C BCA, PINR, 72460-3, CMP, 83078-5, 99806-9 #### [facility] ([id number]) [address] [place] [address], [place] [address] TYPE AND SCREENon 02-09-2025 ABO_INTEP A Normal [facility] Comment on above: Performed By: #### C BCA, PINR, 83803-8, CMP, 27896-7, 87570-6 #### [facility] ([id number]) [address] [place] [address], [place] [address] RH_INTEP Negative Normal [facility] Comment on above: Performed By: #### C BCA, PINR, 93326-2, CMP, 29067-4, 37256-8 #### [facility] ([id number]) [address] [place] [address], [place] [address] VITAMIN D 25 HYDROXYon 02-09 VITAMIN D 25 HYD TOT 40.6 ng/mL Normal 30.0-100.0 [facility] Comment on above: Order Comment: Vitam in D status 25 [place] Vitamin D Deficienc y <20 ng/mLInsufficiency 20-29 ng/mLSufficiency 30-100 ng/mLToxicity >100 ng/mLNOTE: A pediatric reference range has not been established by the analytical chemistry teacher of this kit. The [place] [employer] [place] [employer] recommends a Vitamin D level of = or >20ng/mL in infants and children. Performed By: #### C BCA, PINR, 84185-5, CMP, 24576-5, 36017-4 #### [facility] ([id number]) [address] [place] [address], [place] [address] XR CHEST 1 VWon 02-09-2025 XR CHEST 1 VW XR CHEST 1 VW XR CHEST 1 VW: 02/09/2025 3:19 PM [...] Joaquin Ohara MD on 02/09/2025 3:42 PM Normal [facility] XR FEMUR LT 2+ VIEWSon 02-09 XR FEMUR LT 2+ VIEWS XR FEMUR LT 2+ VIEW S XR FEMUR LT 2+ VIEWS Clinical history:fall hip pain Comparison: None. Impression: Degenerative changes left hip.) Plasty noted. No acute process fracture or dislocation. If the patient is unable to bear weight or if there is concern for nondisplaced hip fracture, consider correlation with MRI. Finalized by Mir Mccartney MD on 02/09/2025 3:46 PM Normal [facility] XR HIP LT 2-3 VIEWS W OR WO PELVISon 02-09-2025 XR HIP LT 2-3 VIEWS W OR WO PELVIS XR HIP LT 2-3 VIEWS W OR WO PELVIS XR HIP LT 2-3 VIEWS W OR [...] Mir Mccartney MD on 02/09/2025 3:[address] [facility] 01-05-2025 CNPN Telephone (NEBT) DERRICK MONAE ([id number]) 1935 M Date Time Provider Department 01/05/25 MARGARITA AREVALO During your visit today, we recorded the following information about you: Jackson Alegre 01/05/2025 2:51 PM Signed Left voicemail regarding scheduling follow up with Margarita in 3 months (Mar 2025), and new consult with Virginia Camacho, the [facility] social media designer, scheduling number included for call back. Allergies As of Date: 01/05/2025 Noted Allergy Reaction PINEAPPLE 04/16/2011 14 - Other: See Comments Comments: Tickle in back of throat SULFA (SULFONAMIDE ANTIBIOTICS) 05/17/2003 Comments: hives + SOB Date Reviewed: 10/07/2024 Reviewed by: Rajni Kitchen OCCA - Fully Assessed Reason for Visit: Appointment [186] Cmt: Left voicemail regarding scheduling follow up with Margarita in 3 months (Mar 2025), and new consult with Virginia Camacho, the [facility] social media designer, scheduling number included for call back. Prescriptions as of 01/05/2025 - sertraline (ZOLOFT) 50 mg tablet Take 1.5 tablets by mouth once daily. - memantine (NAMENDA) 10 mg tablet Take 1 tablet by mouth two times a day. - albuterol HFA (PROVENTIL HFA, VENTOLIN HFA) 90 mcg/actuation inhaler Inhale 2 Puffs as instructed every 4 hours as needed. - fluticasone (FLONASE) 50 mcg/actuation nasal spray Use 1 [place] in the nose once daily. - loratadine-pseudoeph edrine ER (CLARITIN-D 24) 10-240 mg Tb24 Take 1 tablet by mouth once daily. - fluticasone furoate-vilanterol (BREO ELLIPTA) 50-25 mcg/dose inhaler Inhale 1 Inhalation as instructed once daily. - donepezil (ARICEPT) 10 mg tablet Take 1 tablet by mouth daily at bedtime. - isosorbide mononitrate ER (IMDUR) 30 mg 24 hr tablet Take 0.5 tablets by mouth twice daily. - Aspirin (EXTRA STRENGTH GAIL) 500 mg ORAL Tab Take 1,000 mg by mouth twice daily. - esomeprazole (NEXIUM) 40 mg ORAL capsule Take 1 capsule by mouth once daily. - mometasone (NASONEX) 50 mcg/Actuation NASAL nasal spray Use 2 Sprays in each nostril once daily. - fluticasone-salmeter ol (ADVAIR DISKUS) 250-50 mcg/dose INHALATION DsDv Inhale 1 Puff as instructed twice daily. rinse and gargle mouth with water after each use Problem List As Of Date 01/05/2025 Noted Resolved Abnormal cardiovascular stress test [R94.39] 04/16/2011 Asthma [J45.909] 04/16/2011 GERD (gastroesophageal reflux disease) [K21.9] 04/16/2011 OA (osteoarthritis) of knee [M17.9] 04/16/2011 Encounter Status:Closed by JACKSON ALEGRE on 01/05/25 [facility] CNOVmiranda 10-07-2024 [facility] Office Visit (OSWALDEvan) DERRICK MONAE ([id number]) 1935 M Date Time Provider Department 10/07/24 1:00 PM MARGARITA AREVALO During your visit today, we recorded the following information about you: Pulse Blood pressure Weight 115/minute 129/91 69.6 kg Margarita Arevalo PA-C 10/07/2024 2:21 PM Signed Derrick Monae 1935 [address] [facility] [address] October 07, 2024 Time: 11:58 AM [facility] FOLLOW-UP NOTE Accompanied by: spouse and daughter (she is visiting, lives in [place]) SUBJECTIVE Derrick Monae is a pleasant 89 year old year old male seen today for a follow up visit. 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 Patient was last seen in with Dr. Oliva. At that time anti-amyloid therapies were discuss, Namenda was started. Today, patient presents for recheck. Patient is taking the Namenda. He is tolerating it without side effects but spouse states that it is not helping him. He is cognitively worse, daughter agrees. She is visiting from [place], here for about one month. Spouse states that patient frequently says, I'm so mixed up. I'm so tired. They are dealing with anger and irritability, so PCP prescribed Seroquel, not sure of dose. Possibly contributing to the fatigue. Other interval history: Living Situation: with spouse and two sons ADL's : he has had occasional accidents. Spouse and daughter agree that he is not showering. We reviewed hygiene importance Driving: No, but is upset about this ------ PAST MEDICAL HISTORY Diagnosis Date CAD (coronary artery disease) COPD (chronic obstructive pulmonary disease) (HCC) GERD (gastroesophageal reflux disease) SOCIAL HISTORY Social History Tobacco Use Smoking status: Former Tobacco comments: He msoked 1-2 PPd x 25-30 years, quit 20-25 years ago Substance Use Topics Alcohol use: Yes Comment: He drinks 2 beers daily Drug use: No Social History reviewed by Margarita Arevalo PA-C Current Outpatient Medications on File Prior to Visit Medication Sig memantine (NAMENDA) 10 mg tablet Take 1 tablet by mouth two times a day. albuterol HFA (PROVENTIL HFA, VENTOLIN HFA) 90 mcg/actuation inhaler Inhale 2 Puffs as instructed every 4 hours as needed. fluticasone (FLONASE) 50 mcg/actuation nasal spray Use 1 [place] in the nose once daily. loratadine-pseudoeph edrine ER (CLARITIN-D 24) 10-240 mg Tb24 Take 1 tablet by mouth once daily. fluticasone furoate-vilanterol (BREO ELLIPTA) 50-25 mcg/dose inhaler Inhale 1 Inhalation as instructed once daily. donepezil (ARICEPT) 10 mg tablet Take 1 tablet by mouth daily at bedtime. isosorbide mononitrate ER (IMDUR) 30 mg 24 hr tablet Take 0.5 tablets by mouth twice daily. Aspirin (EXTRA STRENGTH GAIL) 500 mg ORAL Tab Take 1,000 mg by mouth twice daily. esomeprazole (NEXIUM) 40 mg ORAL capsule Take 1 capsule by mouth once daily. mometasone (NASONEX) 50 mcg/Actuation NASAL nasal spray Use 2 Sprays in each nostril once daily. fluticasone-salmeter ol (ADVAIR DISKUS) 250-50 mcg/dose INHALATION DsDv Inhale 1 Puff as instructed twice daily. rinse and gargle mouth with water after each use No current facility-administere d medications on file prior to visit. Patient-Reported No data to display Activities of Daily Living (ADL) No data to display PROMIS-10 No data to display PHQ-9 No data to display (0-4) minimal depression (5-9) mild depression (10-14) moderate depression (15-19) moderately severe depression (20-27) severe depression Full History of PHQ-9 Scores No data to display Sleep No data to display No data to display Caregiver-Reported No data to display Dementia Severity Rating Scale (DSRS) No data to display ------ OBJECTIVE MMSE was 23/30 on 04/2024 [facility] Past Scores 01/23/2024 [facility] MOCA TOTAL SCORE 13 out of 30 Visuospatial/ Executive 2 Naming 2 Attention 4 Language 0 Abstraction 0 Delayed Recall 0 Orientation 5 Physical Exam: Vital Signs: BP 129/91 Pulse 115 Wt 69.6 kg (153 lb 8 oz) BMI 24.78 kg/m? General: WDWN, NAD. Awake, alert. HEENT: NC/AT. Neurological Exam: Cognition AND Orientation:alert Appearance: normal grooming Eye contact: normal Facial expression: appropriate, upset when we discuss driving Psychomotor: normal Speech/Language: unremarkable -can name, repeat with no dysarthria Emotional state: mostly calm Thought Process: logical but amnestic and repetitive- tells me many times that with him today is his and daughter Thought Content: appropriate Judgment: impaired due to lack of insight Insight: poor (more content not included)... Normal [facility] BASIC METABOLIC PANLon 08-05 Anion gap [Moles/Vol] 11 mmol/L Normal 5-15 [facility] Comment on above: Performed By: #### C BCA, PINR, 02751-7, CMP, 53780-3, 99942-6 #### [facility] ([id number]) [address] [place] [address] Calcium [Mass/Vol] 8.4 mg/dL Low 8.5-10.5 [facility] Comment on above: Performed By: #### C BCA, PINR, 16018-4, CMP, 55727-6, 22264-3 #### [facility] ([id number]) [address] [place] [address] Chloride [Moles/Vol] 103 mmol/L Normal 98-109 [facility] Comment on above: Performed By: #### C BCA, PINR, 33576-7, CMP, 24552-4, 44572-4 #### [facility] ([id number]) [address] [place] [address] 69481 CO2 [Moles/Vol] 23 mmol/L Normal 22-32 [facility] Comment on above: Performed By: #### C BCA, PINR, 08128-6, CMP, 97175-6, 52839-2 #### [facility] ([id number]) [address] [place] [address]70 Creatinine [Mass/Vol] 0.82 mg/dL Normal 0.70-1.20 [facility] Comment on above: Result Comment: METH OD TRACEABLE TO IDMS STANDARD Performed By: #### C BCA, PINR, 87924-3, CMP, 13765-6, 23676-4 #### [facility] ([id number]) [address] [place] [address]116 GFR/1.73 sq M.predicted among non-blacks MDRD (S/P/Bld) [Vol rate/Area] 85 mL/min/{1.73_m2} Normal >59 [facility] Comment on above: Result Comment: Reported eGFR is based on the CKD-EPI 2020 equation that does not use a race coefficient. Performed By: #### C BCA, PINR, 06873-6, CMP, 99348-5, 29163-0 #### [facility] ([id number]) [address] [place] [address] 78999 Glucose [Mass/Vol] 108 mg/dL High 65-99 [facility] Comment on above: Performed By: #### C BCA, PINR, 07142-4, CMP, 36176-0, 49906-5 #### [facility] ([id number]) [address] [place] [address]6637 Potassium [Moles/Vol] 3.9 mmol/L Normal 3.5-5.0 [facility] Comment on above: Performed By: #### C BCA, PINR, 47568-5, CMP, 59786-8, 71108-1 #### [facility] ([id number]) [address] [place] [address] 77473 Sodium [Moles/Vol] 137 mmol/L Normal 134-146 [facility] Comment on above: Performed By: #### C BCA, PINR, 70975-2, CMP, 41793-3, 90169-4 #### [facility] ([id number]) [address] [place] [address] 75503 Urea nitrogen [Mass/Vol] 17 mg/dL Normal 5-27 [facility] Comment on above: Performed By: #### C BCA, PINR, 59424-7, CMP, 68080-4, 43464-4 #### [facility] ([id number]) [address] [place] [address] 30552 CBC AND AUTO DIFFon 08-05-19 25 ABSOLUTE BASOPHIL 0.1 X10E9/L Normal 0.0-0.2 [facility] Comment on above: Performed By: #### C BCA, PINR, 07422-9, CMP, 58198-2, 34688-6 #### [facility] ([id number]) [address] [place] [address] ABSOLUTE NEUTROPHIL 5.3 X10E9/L Normal 1.5-6.6 [facility] Comment on above: Performed By: #### C BCA, PINR, 48978-5, CMP, 64678-8, 61322-0 #### [facility] ([id number]) [address] [place] [address] 25292 Basophils/100 WBC (Bld) 0.8 % Normal [facility] Comment on above: Performed By: #### C BCA, PINR, 23018-5, CMP, 35369-1, 33630-4 #### [facility] ([id number]) [address] [place] [address] 98996 Eosinophils (Bld) [#/Vol] 0.1 10*3/uL Normal 0.0-0.4 [facility] Comment on above: Performed By: #### C BCA, PINR, 79483-2, CMP, 29201-1, 37821-4 #### [facility] ([id number]) [address] [place] [address] 20976 Eosinophils/100 WBC (Bld) 2.0 % Normal [facility] Comment on above: Performed By: #### C BCA, PINR, 31548-6, CMP, 87135-3, 94202-8 #### [facility] ([id number]) [address] [place] [address] 17985 Erythrocyte distribution width (RBC) [Ratio] 14.3 % Normal 11.5-15.0 [facility] Comment on above: Performed By: #### C BCA, PINR, 85964-0, CMP, 15716-4, 41404-6 #### [facility] ([id number]) [address] [place] [address] 48167 Hematocrit (Bld) [Volume fraction] 40.1 % Normal 39-49 [facility] Comment on above: Performed By: #### C BCA, PINR, 60511-1, CMP, 18989-9, 66101-5 #### [facility] ([id number]) [address] [place] [address] 50933 Hemoglobin (Bld) [Mass/Vol] 13.6 g/dL Normal 13.0-17.0 [facility] Comment on above: Performed By: #### C BCA, PINR, 92754-0, CMP, 98833-1, 86352-1 #### [facility] ([id number]) [address] [place] [address] [place] [address] Lymphocytes (Bld) [#/Vol] 0.7 10*3/uL Low 1.0-3.5 [facility] Comment on above: Performed By: #### C BCA, PINR, 45851-7, CMP, 24287-2, 40669-0 #### [facility] ([id number]) [address] [place] [address] 39917 Lymphocytes/100 WBC (Bld) 9.7 % Normal [facility] Comment on above: Performed By: #### C BCA, PINR, 57816-2, CMP, 48385-0, 91274-6 #### [facility] ([id number]) [address] [place] [address] 75039 MCH (RBC) [Entitic mass] 30.9 pg Normal 27-34 [facility] Comment on above: Performed By: #### C BCA, PINR, 61081-6, CMP, 76856-5, 37282-2 #### [facility] ([id number]) [address] [place] [address] 69798 MCHC (RBC) [Mass/Vol] 33.8 g/dL Normal 32-36 [facility] Comment on above: Performed By: #### C BCA, PINR, 34378-1, CMP, 55767-7, 90837-0 #### [facility] ([id number]) [address] [place] [address] 27567 MCV (RBC) [Entitic vol] 91 fL Normal 80-100 [facility] Comment on above: Performed By: #### C BCA, PINR, 89035-6, CMP, 32293-8, 01667-2 #### [facility] ([id number]) [address] [place] [address] 77594 Monocytes (Bld) [#/Vol] 0.8 10*3/uL Normal 0-0.9 [facility] Comment on above: Performed By: #### C BCA, PINR, 27558-3, CMP, 05953-5, 39261-3 #### [facility] ([id number]) [address] [place] [address] 75671 Monocytes/100 WBC (Bld) 11.3 % Normal [facility] Comment on above: Performed By: #### C BCA, PINR, 14469-0, CMP, 27314-6, 30911-0 #### [facility] ([id number]) [address] [place] [address] 69615 Neutrophils/100 WBC (Bld) 76.2 % Normal [facility] Comment on above: Performed By: #### C BCA, PINR, 65958-6, CMP, 35673-9, 75581-4 #### [facility] ([id number]) [address] [place] [address] 02907 Platelet mean volume (Bld) [Entitic vol] 7.8 fL Normal 7-12 [facility] Comment on above: Performed By: #### C BCA, PINR, 03739-5, CMP, 04896-6, 48099-0 #### [facility] ([id number]) [address] [place] [address] 34536 Platelets (Bld) [#/Vol] 207 10*3/uL Normal 150-450 [facility] Comment on above: Performed By: #### C BCA, PINR, 47451-1, CMP, 54694-0, 18476-3 #### [facility] ([id number]) [address] [place] [address] 12381 RBC COUNT 4.38 X10E12/L Normal 4.10-5.70 [facility] Comment on above: Performed By: #### C BCA, PINR, 37069-0, CMP, 38952-6, 43094-0 #### [facility] ([id number]) [address] [facility] [place] [address] WBC (Bld) [#/Vol] 6.9 10*3/uL Normal 4.0-11.0 [facility] Comment on above: Performed By: #### C BCA, PINR, 82676-3, CMP, 35054-0, 21769-1 #### [facility] ([id number]) [address] [facility], [place] [address] SARS/FLU A+B/RSV by NAAT/Mol ecularon 08-05-2024 SARS/FLU A+B/RSV by NAAT/Molecular FLU A PCR Negative (qualifier value) FLU B PCR Negative (qualifier value) RSV by PCR Positive (qualifier value) SARS CoV 2 Not detected (qualifier value) NOTE The Xpert Xpress SARS-CoV-2/Flu/RSV Plus test is a rapid, multiplexed real-time RT-PCR test intended for the simultaneous qualitative detection and differentiation of SARS-CoV-2, influenza A, influenza B and respiratory syncytial virus (RSV) viral RNA from individuals suspected of respiratory viral infection consistent with COVID-19 by their healthcare provider. This test has not been validated in asymptomatic patients. The Xpert Xpress SARS-CoV-2 test is intended for use by qualified and trained operators who are performing tests using either [employer] DX or GeneXpert Infinity systems and is limited to laboratories that meet the CLIA requirements to perform high and moderate complexity tests. The Xpert Xpress SARS-CoV-2/Flu/RSV Plus is only for use under the Food and Drug Administration's Emergency Use Authorization. Results are for the simultaneous detection and differentiation of SARS-CoV-2, influenza A, influenza B and RSV nucleic acids in clinical specimens. SARS-CoV-2, influenza A, influenza B and RSV RNA identified by this test are generally detectable in upper respiratory samples during the acute phase of infection. Positive results are indicative of the presence of the identified virus, but do not rule out bacterial infection or co-infection with other pathogens not detected by this test. Clinical correlation with patient history and other diagnostic information is necessary to determine patient infection status. The agent detected may not be the definite cause of disease. Negative results do not preclude SARS-CoV-2, influenza A, influenza B and RSV infection and should not be used as the sole basis for treatment or other patient management decisions. Negative results must be combined with clinical observations, patient history and epidemiological information. An Invalid result may occur with specimen-associated inhibition unable to be resolved with specimen repeat. Fact Sheet for Healthcare Providers: https://www.fda.gov/ media/881017/downloa d Fact Sheet for Patients: https://www.fda.gov/ media/224430/downloa d Normal [facility] Comment on above: Performed By: #### C BCA, PINR, 83325-2, CMP, 12357-6, 36633-2 #### [facility] ([id number]) [address] [place] [address] 43466 XR CHEST 1 VWon 08-05-2024 XR CHEST 1 VW XR CHEST 1 VW EXAM: XR CHEST 1 VW CLINICAL INFORMATION: Cough. COMPARISON: 09/10/2022 FINDINGS: There are no pleural effusions. There is mild bibasilar atelectasis and/or scarring. There are no focal consolidations. There is no pulmonary edema. Heart size is within normal limits. IMPRESSION: 1. No acute cardiopulmonary disease. Finalized by Dwight Velez MD on 08/05/2024 5:42 PM [facility] CBC AND AUTO DIFFon 07-30-19 25 ABSOLUTE BASOPHIL 0.2 X10E9/L Normal 0.0-0.2 [facility] Comment on above: Performed By: #### C BCA, PINR, 89749-0, CMP, 90431-8, 58740-0 #### [facility] ([id number]) [address] [place] [address] 90433 ABSOLUTE NEUTROPHIL 4.4 X10E9/L Normal 1.5-6.6 [facility] Comment on above: Performed By: #### C BCA, PINR, 69015-1, CMP, 66322-0, 14183-7 #### [facility] ([id number]) [address] [place] [address] [place] [address] Basophils/100 WBC (Bld) 2.4 % Normal [facility] Comment on above: Performed By: #### C BCA, PINR, 45716-5, CMP, 14713-0, 78909-6 #### [facility] ([id number]) [address] [place] [address] 00719 Eosinophils (Bld) [#/Vol] 0.3 10*3/uL Normal 0.0-0.4 [facility] Comment on above: Performed By: #### C BCA, PINR, 59120-7, CMP, 34586-9, 80257-5 #### [facility] ([id number]) [address] [place] [address] 91610 Eosinophils/100 WBC (Bld) 4.0 % Normal [facility] Comment on above: Performed By: #### C BCA, PINR, 00087-2, CMP, 33136-5, 79159-7 #### [facility] ([id number]) [address] [place] [address] 06276 Erythrocyte distribution width (RBC) [Ratio] 14.0 % Normal 11.5-15.0 [facility] Comment on above: Performed By: #### C BCA, PINR, 37815-2, CMP, 88210-3, 14783-9 #### [facility] ([id number]) [address] [place] [address] 06814 Hematocrit (Bld) [Volume fraction] 39.0 % Normal 39-49 [facility] Comment on above: Performed By: #### C BCA, PINR, 42465-2, CMP, 41301-7, 26656-4 #### [facility] ([id number]) [address] [place] [address] 57704 Hemoglobin (Bld) [Mass/Vol] 13.3 g/dL Normal 13.0-17.0 [facility] Comment on above: Performed By: #### C BCA, PINR, 98985-3, CMP, 55467-6, 03533-9 #### [facility] ([id number]) [address] [place] [address] 97498 Lymphocytes (Bld) [#/Vol] 1.1 10*3/uL Normal 1.0-3.5 [facility] Comment on above: Performed By: #### C BCA, PINR, 45435-1, CMP, 75284-4, 31491-4 #### [facility] ([id number]) [address] [place] [address] 40324 Lymphocytes/100 WBC (Bld) 16.4 % Normal [facility] Comment on above: Performed By: #### C BCA, PINR, 89808-8, CMP, 20112-6, 14642-1 #### [facility] ([id number]) [address] [place] [address] 72818 MCH (RBC) [Entitic mass] 31.3 pg Normal 27-34 [facility] Comment on above: Performed By: #### C BCA, PINR, 99664-8, CMP, 00589-7, 52957-5 #### [facility] ([id number]) [address] [place] [address] 42761 MCHC (RBC) [Mass/Vol] 34.0 g/dL Normal 32-36 [facility] Comment on above: Performed By: #### C BCA, PINR, 13479-5, CMP, 37694-8, 32491-3 #### [facility] ([id number]) [address] [place] [address] 19004 MCV (RBC) [Entitic vol] 92 fL Normal 80-100 [facility] Comment on above: Performed By: #### C BCA, PINR, 38831-7, CMP, 67002-9, 67972-7 #### [facility] ([id number]) [address] [place] [address] 03177 Monocytes (Bld) [#/Vol] 0.7 10*3/uL Normal 0-0.9 [facility] Comment on above: Performed By: #### C BCA, PINR, 79733-0, CMP, 39372-6, 38243-2 #### [facility] ([id number]) [address] [place] [address] 64499 Monocytes/100 WBC (Bld) 10.0 % Normal [facility] Comment on above: Performed By: #### C BCA, PINR, 93831-7, CMP, 49270-0, 63605-9 #### [facility] ([id number]) [address] [place] [address] 10435 Neutrophils/100 WBC (Bld) 67.2 % Normal [facility] Comment on above: Performed By: #### C BCA, PINR, 22283-6, CMP, 29528-8, 35447-4 #### [facility] ([id number]) [address] [place] [address] 77224 Platelet mean volume (Bld) [Entitic vol] 8.4 fL Normal 7-12 [facility] Comment on above: Performed By: #### C BCA, PINR, 38891-8, CMP, 65743-8, 28585-6 #### [facility] ([id number]) [address] [place] [address] 54484 Platelets (Bld) [#/Vol] 242 10*3/uL Normal 150-450 [facility] Comment on above: Performed By: #### C BCA, PINR, 52378-1, CMP, 26841-1, 32382-5 #### [facility] ([id number]) [address] [place] [address] 17400 RBC COUNT 4.24 X10E12/L Normal 4.10-5.70 [facility] Comment on above: Performed By: #### C BCA, PINR, 46913-6, CMP, 25374-3, 71711-6 #### [facility] ([id number]) [address] [place] [address] 73086 WBC (Bld) [#/Vol] 6.5 10*3/uL Normal 4.0-11.0 [facility] Comment on above: Performed By: #### C BCA, PINR, 73810-7, CMP, 66744-8, 41308-9 #### [facility] ([id number]) [address] [place] [address] 49988 COMPREHENSIVE METABOLIC PANE Tim 07-30-2024 Albumin [Mass/Vol] 3.7 g/dL Normal 3.2-5.3 [facility] Comment on above: Performed By: #### C BCA, PINR, 64422-8, CMP, 20782-1, 30583-1 #### [facility] ([id number]) [address] [place] [address] 15233 ALP [Catalytic activity/Vol] 103 U/L Normal 39-130 [facility] Comment on above: Performed By: #### C BCA, PINR, 69260-5, CMP, 10725-5, 79803-2 #### [facility] ([id number]) [address] [place] [address] 29546 ALT [Catalytic activity/Vol] 21 U/L Normal 0-40 [facility] Comment on above: Performed By: #### C BCA, PINR, 76630-0, CMP, 20304-4, 01679-3 #### [facility] ([id number]) [address] [place] [address] 66356 Anion gap [Moles/Vol] 10 mmol/L Normal 5-15 [facility] Comment on above: Performed By: #### C BCA, PINR, 44830-2, CMP, 28797-1, 08167-9 #### [facility] ([id number]) [address] [place] [address] 85413 AST [Catalytic activity/Vol] 20 U/L Normal 0-41 [facility] Comment on above: Performed By: #### C BCA, PINR, 73722-7, CMP, 38448-3, 92145-0 #### [facility] ([id number]) [address] [place] [address] 82410 Bilirubin [Mass/Vol] 0.5 mg/dL Normal 0.3-1.2 [facility] Comment on above: Performed By: #### C BCA, PINR, 10120-8, CMP, 99691-8, 74291-0 #### [facility] ([id number]) [address] [place] [address] 49733 Calcium [Mass/Vol] 8.4 mg/dL Low 8.5-10.5 [facility] Comment on above: Performed By: #### C BCA, PINR, 55487-5, CMP, 49298-3, 48486-5 #### [facility] ([id number]) [address] [place] [address] 34946 Chloride [Moles/Vol] 104 mmol/L Normal 98-109 [facility] Comment on above: Performed By: #### C BCA, PINR, 03065-2, CMP, 94407-0, 12141-4 #### [facility] ([id number]) [address] [place] [address] 44896 CO2 [Moles/Vol] 23 mmol/L Normal 22-32 [facility] Comment on above: Performed By: #### C BCA, PINR, 38076-7, CMP, 12157-6, 60153-8 #### [facility] ([id number]) [address] [place] [address] 24901 Creatinine [Mass/Vol] 1.13 mg/dL Normal 0.70-1.20 [facility] Comment on above: Result Comment: METH OD TRACEABLE TO IDMS STANDARD Performed By: #### C BCA, PINR, 09434-1, CMP, 82767-9, 67444-8 #### [facility] ([id number]) [address] [place] [address] 89442 GFR/1.73 sq M.predicted among non-blacks MDRD (S/P/Bld) [Vol rate/Area] 63 mL/min/{1.73_m2} Normal >59 [facility] Comment on above: Result Comment: Reported eGFR is based on the CKD-EPI 2020 equation that does not use a race coefficient. Performed By: #### C BCA, PINR, 67771-1, CMP, 27211-1, 55354-4 #### [facility] ([id number]) [address] [place] [address] 31851 Glucose [Mass/Vol] 100 mg/dL High 65-99 [facility] Comment on above: Performed By: #### C BCA, PINR, 43419-9, CMP, 97710-5, 99500-2 #### [facility] ([id number]) [address] [place] [address] 69449 Potassium [Moles/Vol] 4.1 mmol/L Normal 3.5-5.0 [facility] Comment on above: Performed By: #### C BCA, PINR, 85922-1, CMP, 43108-3, 98509-6 #### [facility] ([id number]) [address] [place] [address] 85308 Protein [Mass/Vol] 6.3 g/dL Normal 6.0-8.0 [facility] Comment on above: Performed By: #### C BCA, PINR, 96008-4, CMP, 21886-7, 45316-5 #### [facility] ([id number]) [address] [place] [address] Sodium [Moles/Vol] 137 mmol/L Normal 134-146 [facility] Comment on above: Performed By: #### C BCA, PINR, 68325-3, CMP, 14499-4, 76551-3 #### [facility] ([id number]) [address] [place] [address] Urea nitrogen [Mass/Vol] 25 mg/dL Normal 5-27 [facility] Comment on above: Performed By: #### C BCA, PINR, 92658-9, CMP, 01370-0, 70547-9 #### [facility] ([id number]) [address] [place] [address] CT ABDOMEN AND PELVIS WO CON Ton 07-30-2024 CT ABDOMEN AND PELVIS WO CONT CT ABDOMEN AND PELVIS WO CONT CLINICAL INFORMATION: Abdominal trauma, blunt. TECHNIQUE: CT Abdomen and Pelvis without intravenous contrast. All CT scans at this facility use dose modulation, iterative reconstruction, and/or weight based dosing when appropriate to reduce radiation dose to as low as reasonably achievable. COMPARISON: No relevant prior studies available. FINDINGS: Please refer to separate report for chest findings. The liver, gallbladder, adrenal glands, spleen, and pancreas are unremarkable. Bilateral renal cysts. Diffuse atherosclerotic disease. No enlarged abdominal or pelvic lymph nodes. Stone in the left posterior bladder measuring 0.5 cm. The small and large bowel are of normal caliber with no evidence of bowel wall thickening. No free fluid in the abdomen or pelvis. Small fat-containing umbilical hernia. L1 and L2 compression deformities with moderate height loss of each of these vertebral bodies. Multilevel degenerative changes throughout the lumbar spine. IMPRESSION: * No convincing acute traumatic injury identified in the abdomen/pelvis, within the limitations of a noncontrast enhanced study. * Moderate compression deformities of the L1 and L2 vertebral bodies are technically indeterminate though favored to be chronic. If, however, there is clinical concern for acute component of these fractures or acute process elsewhere in the spine consider further assessment with MRI. Finalized by Larry Jernigan MD on 07/30/2024 1:05 AM Normal [facility] CT BRAIN WO CONTon 5 CT BRAIN WO CONT CT BRAIN WO CONT CT HEAD WITHOUT CONTRAST HISTORY: Fall, pain, confusion COMPARISON: None. TECHNIQUE: Routine noncontrast CT head. All CT scans at this facility use dose modulation, iterative reconstruction, and/or weight based dosing when appropriate to reduce radiation dose to as low as reasonably achievable. FINDINGS: No intra-axial or extra-axial fluid collection/hemorrhag e. No mass or mass effect. No evidence of ventricular outflow obstruction. 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 No evidence of ventricular outflow obstruction. Examination compromised by motion artifact. Visualized paranasal sinuses and temporal bone structures are clear. No skull abnormalities. IMPRESSION: No acute intracranial process. Finalized by Larry Jernigan MD on 07/30/2024 12:51 AM Normal [facility] CT CERVICAL SPINE WO CONTon 07-30-2024 CT CERVICAL SPINE WO CONT CT CERVICAL SPINE WO CONT CT CERVICAL SPINE WITHOUT CONTRAST HISTORY: Fall, pain COMPARISON: None TECHNIQUE: CT cervical spine was performed utilizing thin section CT imaging without contrast. Coronal and sagittal reformatted images were obtained and reviewed. All CT scans at this facility use dose modulation, iterative reconstruction, and/or weight based dosing when appropriate to reduce radiation dose to as low as reasonably achievable. FINDINGS: No acute fracture. Degenerative changes at the atlantodens articulation. Craniocervical junction maintained. Facet joints align normally. Multilevel bilateral facet arthropathy. Multilevel disc related degenerative disease. The paravertebral soft tissue structures are unremarkable. IMPRESSION: * No acute osseous abnormalities in the cervical spine. Finalized by Larry Jernigan MD on 07/30/2024 12:57 AM Normal [facility] CT CHEST WO CONTon 5 CT CHEST WO CONT CT CHEST WO CONT CT CHEST WITHOUT CONTRAST HISTORY: Trauma, pain COMPARISON: None. TECHNIQUE: Routine CT chest without contrast. All CT scans at this facility use dose modulation, iterative reconstruction, and/or weight based dosing when appropriate to reduce radiation dose to as low as reasonably achievable. FINDINGS: Please refer to separate report for abdominal findings. 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 No pneumothorax. Borderline cardiomegaly. No pleural or pericardial effusions. The thoracic aorta is unremarkable. Coronary artery calcifications. The central pulmonary arteries are unremarkable. No enlarged thoracic lymph nodes. Old left rib fractures. Advanced degenerative changes throughout the spine. IMPRESSION: No acute traumatic injury in the chest. Finalized by Larry Jernigan MD on 07/30/2024 1:01 AM Normal [facility] Lactate (P maximino) [Moles/Vol]o n 07-30-2024 LACTATE W/REFLEX 1.5 mmol/L Normal 0.4-2.0 [facility] Comment on above: Result Comment: Result did not trigger repeat Lactate, re-order if needed. Performed By: #### 3 2133-1 #### [facility] ([id number]) [address] [place] [address] 90321 Natriuretic peptide B [Mass/ Vol]on 07-30-2024 Natriuretic peptide B (Bld) [Mass/Vol] 20 pg/mL Normal <100.0 [facility] Comment on above: Performed By: #### C BCA, PINR, 65009-1, CMP, 40571-7, 00392-6 #### [facility] ([id number]) [address] [place] [address] 45780 PROTIME AND INRon 07-30-2024 INR Coag (PPP) [Relative time] 1.0 {INR} Normal 0.8-1.1 [facility] Comment on above: Performed By: #### C BCA, PINR, 00877-5, CMP, 82945-8, 23665-4 #### [facility] ([id number]) [address] [place] [address] 33540 PT Coag (PPP) [Time] 11.2 s Normal 9.8-13.2 [facility] Comment on above: Result Comment: NEW REFERENCE RANGE Performed By: #### C BCA, PINR, 48047-2, CMP, 99923-0, 75838-1 #### [facility] ([id number]) [address] [place] [address] 02316 Troponin I.cardiac High sens itivity method [Mass/Vol]on 07-30-2024 1 HOUR TROP I, HIGH SENSITIVITY 4 ng/L Normal <21 [facility] Comment on above: Performed By: #### C BCA, PINR, 25724-6, CMP, 44902-4, 79860-6 #### [facility] ([id number]) [address] [place] [address] 41068 TROPONIN I, HIGH SENSITIVITY 4 ng/L Normal <21 [facility] Comment on above: Performed By: #### C BCA, PINR, 34658-6, CMP, 94168-5, 27902-2 #### [facility] ([id number]) [address] [place] [address] 35538 aPTT Coag (PPP) [Time]on aPTT Coag (Bld) [Time] 28 s Normal 26-37 [facility] Comment on above: Result Comment: NEW REFERENCE RANGE Performed By: #### C BCA, PINR, 91884-3, CMP, 73224-7, 52931-2 #### [facility] ([id number]) [address] [place] [address] 58121 Steffen 06-14-2024 JALENN Telephone (ISMAEL) DERRICK MONAE ([id number]) 1935 M Date Time Provider Department 06/14/24 PREET OLIVA During your visit today, we recorded the following information about you: Hanny Quintanilla 06/14/2024 3:16 PM Signed Saeble from patient's PCP's office called asking if patient should be taking Namenda. Is currently not taking it. Please call [phone] Tiarra Best RN 06/15/2024 10:12 AM Signed Spoke with patient PCP office to discuss memantine titration schedule. Advised to titrate slowly and to reach out if patient experiences side effects to further advise. PCP office to call patient spouse to review. Tiarra Best RN Allergies As of Date: 06/14/2024 Noted Allergy Reaction PINEAPPLE 04/16/2011 14 - Other: See Comments Comments: Tickle in back of throat SULFA (SULFONAMIDE ANTIBIOTICS) 05/17/2003 Comments: hives + SOB Date Reviewed: 01/23/2024 Reviewed by: Ewa Monae OCCA - Fully Assessed Reason for Visit: Patient Question [1477] Prescriptions as of 06/15/2024 - memantine (NAMENDA) 10 mg tablet Take 1 tablet by mouth two times a day. - albuterol HFA (PROVENTIL HFA, VENTOLIN HFA) 90 mcg/actuation inhaler Inhale 2 Puffs as instructed every 4 hours as needed. - fluticasone (FLONASE) 50 mcg/actuation nasal spray Use 1 [place] in the nose once daily. - loratadine-pseudoeph edrine ER (CLARITIN-D 24) 10-240 mg Tb24 Take 1 tablet by mouth once daily. - fluticasone furoate-vilanterol (BREO ELLIPTA) 50-25 mcg/dose inhaler Inhale 1 Inhalation as instructed once daily. - donepezil (ARICEPT) 10 mg tablet Take 1 tablet by mouth daily at bedtime. - isosorbide mononitrate ER (IMDUR) 30 mg 24 hr tablet Take 0.5 tablets by mouth twice daily. - Aspirin (EXTRA STRENGTH GAIL) 500 mg ORAL Tab Take 1,000 mg by mouth twice daily. - esomeprazole (NEXIUM) 40 mg ORAL capsule Take 1 capsule by mouth once daily. - mometasone (NASONEX) 50 mcg/Actuation NASAL nasal spray Use 2 Sprays in each nostril once daily. - fluticasone-salmeter ol (ADVAIR DISKUS) 250-50 mcg/dose INHALATION DsDv Inhale 1 Puff as instructed twice daily. rinse and gargle mouth with water after each use Problem List As Of Date 06/14/2024 Noted Resolved Abnormal cardiovascular stress test [R94.39] 04/16/2011 Asthma [J45.909] 04/16/2011 GERD (gastroesophageal reflux disease) [K21.9] 04/16/2011 OA (osteoarthritis) of knee [M17.9] 04/16/2011 Encounter Status:Closed by TIARRA BEST on 06/15/24 [facility] Steffen 05-04-2024 CNPN Telephone ([facility]) DERRICK MONAE ([id number]) 1935 M Date Time Provider Department 05/04/24 MARGARITA AREVALO During your visit today, we recorded the following information about you: Ac Zambrano 05/04/2024 2:57 PM Signed 05/04/24 Patient's spouse Pedro reached the office to request clarification before starting patient on the following medication memantine (NAMENDA) 10 mg tablet Si mg, ORAL, 2 TIMES DAILY. She reports he has physically started to decline and has been falling over more. Please review and advise. [phone] -IN Amalia Albarran RN 05/04/2024 3:38 PM Signed He did not start Memantine did not start at all. He has fallen a number of times. She got him a walker. He has deteriorated a lot in the last couple days. He has fallen a number times. He hasn't been hurt. He is more confused. She wanted to know why the namenda bottle was different than the AVS instructions for starting the namenda. I explained it was necessary to do titration to lessen potential side effects. I will message Dr. Oliva to see if he wants to hold off on starting namenda until he is checked out. She was advised to take him to urgent/express care to make sure there is no underlying cause for his increase in confusion and recent frequent falls. RENEE Molina Elaine, RN 05/04/2024 4:12 PM Signed RN called spouse back and informed her that Dr. Oliva said to hold off on Namenda for now so as not to further complicate things. She was asked to provide update after visit to urgent care. She said that he is currently sleeping, but will take him. Amalia Albarran RN Allergies As of Date: 05/04/2024 Noted Allergy Reaction PINEAPPLE 04/16/2011 14 - Other: See Comments Comments: Tickle in back of throat SULFA (SULFONAMIDE ANTIBIOTICS) 05/17/2003 Comments: hives + SOB Date Reviewed: 01/23/2024 Reviewed by: Ewa Monae OCCA - Fully Assessed Prescriptions as of 05/04/2024 - memantine (NAMENDA) 10 mg tablet Take 1 tablet by mouth two times a day. - albuterol HFA (PROVENTIL HFA, VENTOLIN HFA) 90 mcg/actuation inhaler Inhale 2 Puffs as instructed every 4 hours as needed. - fluticasone (FLONASE) 50 mcg/actuation nasal spray Use 1 [place] in the nose once daily. - loratadine-pseudoeph edrine ER (CLARITIN-D 24) 10-240 mg Tb24 Take 1 tablet by mouth once daily. - fluticasone furoate-vilanterol (BREO ELLIPTA) 50-25 mcg/dose inhaler Inhale 1 Inhalation as instructed once daily. - donepezil (ARICEPT) 10 mg tablet Take 1 tablet by mouth daily at bedtime. - isosorbide mononitrate ER (IMDUR) 30 mg 24 hr tablet Take 0.5 tablets by mouth twice daily. - Aspirin (EXTRA STRENGTH GAIL) 500 mg ORAL Tab Take 1,000 mg by mouth twice daily. - esomeprazole (NEXIUM) 40 mg ORAL capsule Take 1 capsule by mouth once daily. - mometasone (NASONEX) 50 mcg/Actuation NASAL nasal spray Use 2 Sprays in each nostril once daily. - fluticasone-salmeter ol (ADVAIR DISKUS) 250-50 mcg/dose INHALATION DsDv Inhale 1 Puff as instructed twice daily. rinse and gargle mouth with water after each use Problem List As Of Date 05/04/2024 Noted Resolved Abnormal cardiovascular stress test [R94.39] 04/16/2011 Asthma [J45.909] 04/16/2011 GERD (gastroesophageal reflux disease) [K21.9] 04/16/2011 OA (osteoarthritis) of knee [M17.9] 04/16/2011 Encounter Status:Closed by AMALIA ALBARRAN on 05/04/24 [facility] CNOVon 04-30-2024 CNOV Office Visit (ISMAEL) DERRICK MONAE ([id number]) 1935 M Date Time Provider Department 04/30/24 11:30 AM PREET OLIVA During your visit today, we recorded the following information about you: Pulse Blood pressure Weight Height 66/minute 155/73 72.6 kg 1.676 m Edilberto Goodwin MA 04/30/2024 11:28 AM Signed Derrick Monae is a 88 [...] kg (160 lb) BMI 25.82 kg/m? Preet Oliva DO 04/30/2024 12:52 PM Signed Chief complaint: [...] September. He got really confused at a [employer]. He had no idea where they were. Another time at a graduation democr[place] he thought they already went there. Has [...] as well. 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 There was [...] Activities of Daily Living [place] in Activities of Daily Living (A.D.L.) Bathing: [...] (more content not included)... Normal [facility] MR Brain WO contraston 02-14 * * *Final Report* * * DATE OF EXAM: Feb 15 2024 12:15PM [facility] 3015 - MRI BRAIN W QUANT WO [...] also Mando 2010). DIVISION OF RADIOLOGY Provider, [facility] - 02/15/2024 * * *Final Report* * * DATE OF EXAM: Feb 15 2024 12:15PM [facility] 3015 - MRI BRAIN W QUANT WO [...] dementia protocol and 3-D post-processing using the VIP Piano Club software at an independent workstation with concurrent [...] results from the analysis charts for details. Accounting Machine Servicer: MAURIZIO Transcribe Date/Time: Feb 15 2024 12:17P D (more content not included)... [facility] MR Unspecified body region 3 D post processingon 02-15-2024 * * *Final Report* * * DATE OF EXAM: Feb 15 2024 12:15PM [facility] 0280 - MRI 3D POST PROCESSING / [...] dementia protocol and 3-D post-processing using the VIP Piano [employer] software at an independent workstation with concurrent [...] also Mando 2010). DIVISION OF RADIOLOGY Provider, [facility] - 02/15/2024 * * *Final Report* * [...] dementia protocol and 3-D post-processing using the VIP Piano Club software at an independent workstation with concurrent [...] results from the analysis charts for details. Accounting Machine Servicer: MAURIZIO Transcribe Date/Time: Feb 15 2024 12:17P Dicta (more content not included)... [facility] MRI 3D POST PROCESSINGon MRI 3D POST [...] dementia protocol and 3-D post-processing using the VIP Piano Club software at an independent workstation with concurrent [...] results from the analysis charts for details. Accounting Machine Servicer: MAURIZIO Transcribe Date/Time: Feb 15 2024 12:17P Dictated by : NIMO LANGFORD MD This examination was interpreted and the report reviewed and electronically signed by: NIMO LANGFORD MD on Feb 15 2024 12:55PM EST [id number] (more content not included)... Normal [facility] MRI BRAIN W QUANT WO IVCONon 02-15-2024 MRI BRAIN W QUANT WO IVCON * * *Final Report* * * DATE OF EXAM: Feb 15 2024 12:15PM [facility] 3015 - MRI BRAIN W QUANT WO [...] dementia protocol and 3-D post-processing using the VIP Piano Club software at an independent workstation with concurrent [...] results from the analysis charts for details. Accounting Machine Servicer: MAURIZIO Transcribe Date/Time: Feb 15 2024 12:17P Dictated by : NIMO LANGFORD MD This examination was interpreted and the report reviewed and electronically signed by: NIMO LANGFORD MD on Feb 15 2024 12:55PM EST [id number] (more content not included)... Normal [facility] Panel Informationon 02-14 IMPRESSION: * No apparent [...] results from the analysis charts for details. Accounting Machine Servicer: MAURIZIO Transcribe Date/Time: Feb 15 2024 12:17P Dictated by : NIMO LANGFORD MD This examination was interpreted and the report reviewed and electronically signed by: NIMO LANGFORD MD on Feb 15 2024 12:55PM EST DIVISION OF RADIOLOGY Radiology Study observation (narrative) Geno colin [facility] No Panel InformationOrdered By: Ccf Provider on 02-15-2024 [facility] CNOVon 01-23-2024 CNOV Office Visit (NEBHLT) DERRICK MONAE ([id number]) 1935 M Date Time Provider Department 01/23/24 10:00 AM PREET OLIVA During your visit today, we recorded the following information about you: Pulse Blood pressure Weight 55/minute 158/70 72.6 kg Ewa Monae OCCA 01/23/2024 10:10 AM Signed Derrick Monae is a 88 year old year old right handed man Accompanied by: spouse and son. 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 Patient is ALATNA he don't know why he here. His made the appointment she stated he is forgetful. Vital Signs: BP 158/70 Pulse (!) 55 Wt 72.6 kg (160 lb 1.6 oz) BMI 25.84 kg/m? Preet Oliva DO 01/23/2024 1:22 PM Signed Reason for [...] September. He got really confused at a [facility]. He had no idea where they were. Another time at a graduation democr[place] he thought they already went there. Has [...] as well. 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 There was [...] Activities of Daily Living [place] of [place] in Activities of Daily Living (A.D.L.) Bathing: [...] (more content not included)... Normal [facility] No Panel Informationon 01-22 Interpretation and review of laboratory results Normal [facility] THYROID STIMULATING HORMONEo n 01-23-2024 TSH Qn 1.620 m[IU]/L [facility] TSH SerPl-aCncon 01-23-2024 TSH Qn 1.620 m[IU]/L Normal 0.270-4.200 [facility] Comment on above: Order Comment: Speci men Type: BLOOD SPECIMEN Ordering Facility: [facility] Address: [address] [place] [address] Performed By: #### 3 016-3, 2132-9 #### [facility] CLIA [id number] [address] [place] [address] [place] VITAMIN B12on 01-23-2024 Cobalamin (Vitamin B12) [Mass/Vol] 500 pg/mL 232 - 1245 pg/mL [facility] Vit B12 SerPl-mCncon 024 Cobalamin (Vitamin B12) [Mass/Vol] 500 pg/mL Normal 232-1245 [facility] Comment on above: Order Comment: Speci men Type: BLOOD SPECIMEN Ordering Facility: [facility] Address: [address] [place] [address] Performed By: #### 3 016-3, 2132-9 #### [facility] [facility] CLIA [id number] [address] [place] [address] [place] CBC AUTO DIFFon 10-01-2021 BASO # 0.1 103/ul Normal 0.0-0.1 [facility] Comment on above: Performed By: #### C BC #### [facility] [address] [place] [address] Dr. Mazin Davila Basophils/100 WBC (Bld) 1.3 % Normal 0.2-2.0 [facility] Comment on above: Performed By: #### C BC #### [facility] [address] [place] [address] Dr. Mazin Davila EO # 0.3 103/ul Normal 0.0-0.7 [facility] Comment on above: Performed By: #### C BC #### [facility] [address] [place] [address] Dr. Mazin Davila Eosinophils/100 WBC (Bld) 4.3 % Normal 0.9-7.0 [facility] Comment on above: Performed By: #### C BC #### [facility] [address] [place] [address] Dr. Mazin Davila Erythrocyte distribution width (RBC) [Ratio] 13.6 % Normal 11.0-15.0 [facility] Comment on above: Performed By: #### C BC #### [facility] [address] [place] [address] Dr. Mazin Davila Hematocrit (Bld) [Volume fraction] 45.4 % Normal 42.0-54.0 [facility] Comment on above: Performed By: #### C BC #### [facility] [address] [place] [address] Dr. Mazin Davila Hemoglobin (Bld) [Mass/Vol] 14.4 g/dL Normal 14.0-18.0 [facility] Comment on above: Performed By: #### C BC #### [facility] [address] [place] [address] Dr. Mazin Davila IG # 0.03 10e3/ul Normal 0.00-0.03 [facility] Comment on above: Performed By: #### C BC #### [facility] [address] [place] [address] Dr. Mazin Davila IG % 0.4 % Normal 0.0-0.5 [facility] Comment on above: Performed By: #### C BC #### [facility] [address] [place] [address] Dr. Mazin Davila LYMPH # 1.2 103/ul Normal 1.2-3.8 [facility] Comment on above: Performed By: #### C BC #### [facility] [address] [place] [address] Dr. Mazin Davila Lymphocytes/100 WBC (Bld) 15.1 % Critically low 20.5-60.0 [facility] Comment on above: Performed By: #### C BC #### [facility] [address] [place] [address] Dr. Mazin Davila MANUAL DIFF REQ NO Normal [facility] Comment on above: Performed By: #### C BC #### [facility] [address] [place] [address] Dr. Mazin Davila MCH (RBC) [Entitic mass] 30.4 pg Normal 25.9-34.0 [facility] Comment on above: Performed By: #### C BC #### [facility] [address] [place] [address] Dr. Mazin Davila MCHC (RBC) [Mass/Vol] 31.7 g/dL Normal 29.9-35.2 [facility] Comment on above: Performed By: #### C BC #### [facility] [address] [place] [address] Dr. Mazin Davila MCV (RBC) [Entitic vol] 96.0 fL Critically high 80.0-94 .0 [facility] Comment on above: Performed By: #### C BC #### [facility] [address] [place] [address] Dr. Mazin Davila MONO # 0.6 103/ul Normal 0.3-0.8 [facility] Comment on above: Performed By: #### C BC #### [facility] [address] [place] [address] Dr. Mazin Davila Monocytes/100 WBC (Bld) 7.6 % Normal 1.7-12.0 [facility] Comment on above: Performed By: #### C BC #### [facility] [address] [place] [address] Dr. Mazin Davila NEUT # 5.5 103/ul Normal 1.4-6.5 [facility] Comment on above: Performed By: #### C BC #### [facility] [address] [place] [address] Dr. Mazin Davila Neutrophils/100 WBC (Bld) 71.3 % Normal 43.0-75.0 [facility] Comment on above: Performed By: #### C BC #### [facility] [address] [place] [address] Dr. Mazin Davila Platelet mean volume (Bld) [Entitic vol] 10.2 fL Normal 9.5-13.5 [facility] Comment on above: Performed By: #### C BC #### [facility] [address] [place] [address] Dr. Mazin Davila PLT 314 103/ul Normal 150-450 [facility] Comment on above: Performed By: #### C BC #### [facility] [address] [place] [address] Dr. Mazin Davila RBC 4.73 106/ul Normal 4.70-6.10 [facility] Comment on above: Performed By: #### C BC #### [facility] [address] [place] [address] Dr. Mazin Davila WBC 7.7 103/ul Normal 4.0-11.0 [facility] Comment on above: Performed By: #### C BC #### [facility] [address] [place] [address] Dr. Mazin Davila PROF CHEM 8 (BAS METB)on Anion gap [Moles/Vol] 11.7 mmol/L Normal Th e [facility] Comment on above: Performed By: #### B MP #### [facility] [address] [address] [address] Mazin Davila Calcium [Mass/Vol] 8.6 mg/dL Normal 8.5-10.1 [facility] Comment on above: Performed By: #### B MP #### [facility] [address] [address] [address] Mazin Davila Chloride [Moles/Vol] 107 mmol/L Normal 98-107 [facility] Comment on above: Performed By: #### B MP #### [facility] [address] [address] [address] Mazin Davila CO2 [Moles/Vol] 26.8 mmol/L Normal 22.0-30.0 [facility] Comment on above: Performed By: #### B MP #### [facility] [address] [place] [address] Dr. Mazin Davila Creatinine [Mass/Vol] 1.13 mg/dL Normal 0.66-1.25 [facility] Comment on above: Performed By: #### B MP #### [facility] [address] [place] [address] Dr. Mazin Davila EGFR-AF URUGUAYAN >60 Normal >=60 [facility] Comment on above: Performed By: #### B MP #### [facility] [address] [address] [address] Mazin Davila EGFR-NON AF URUGUAYAN >60 Normal >=60 [facility] Comment on above: Performed By: #### B MP #### [facility] [address] [address] [address] Mazin Davila Glucose [Mass/Vol] 92 mg/dL Normal 74-106 [facility] Comment on above: Performed By: #### B MP #### [facility] [address] [place] [address] Dr. Mazin Davila Potassium [Moles/Vol] 4.5 mmol/L Normal 3.4-5.0 [facility] Comment on above: Performed By: #### B MP #### [facility] [address] [place], [place] [address] Dr. Mazin Davila Sodium [Moles/Vol] 141 mmol/L Normal 137-145 [facility] Comment on above: Performed By: #### B MP #### [facility] [address] [place], [place] [address] Dr. Mazin Davila Urea nitrogen [Mass/Vol] 26.0 mg/dL Critically high 7.0-18.0 [facility] Comment on above: Performed By: #### B MP #### [facility] [address] [place], [place] [address] Dr. Mazin Davila Urea nitrogen/Creatinine [Mass ratio] 23.0 mg/mg Normal [facility] Comment on above: Performed By: #### B MP #### [facility] [address] [address] [address] Mazin Davila Vital Signs Date Time Vital Sign Value Performing Clinician Krystle morel 12-16-2024 13:27-0400 Body height 167.6 cm Dion Frazier MD Work Phone: [facility] 12-16-2024 13:27-0400 Body mass index (BMI) [Ratio] 24.21 kg/m2 Dion Frazier MD Work Phone: [facility] 12-16-2024 13:27-0400 Body temperature 97.11 [degF] Dion Frazier MD Work Phone: [facility] 12-16-2024 13:27-0400 Body weight 68.04 kg Dion Frazier MD Work Phone: [facility] 12-16-2024 13:27-0400 Diastolic blood pressure 64 mm[Hg] Dion Frazier MD Work Phone: [facility] 12-16-2024 13:27-0400 Heart rate 87 /min Dion Frazier MD Work Phone: [facility] 12-16-2024 13:27-0400 Respiratory rate 20 /min Dion Frazier MD Work Phone: [facility] 12-16-2024 13:27-0400 SaO2% (BldA) [Mass fraction] 98 % Dion Frazier MD Work Phone: [facility] 12-16-2024 13:27-0400 Systolic blood pressure 130 mm[Hg] Dion Frazier MD Work Phone: [facility] 10-07-2024 12:51-0400 Body mass index (BMI) [Ratio] 24.78 kg/m2 Wolbach Loughrin PA-C Work Phone: [facility] 10-07-2024 12:51-0400 Body weight 69.63 kg Margarita Loughrin PA-C Work Phone: [facility] 10-07-2024 12:51-0400 Diastolic blood pressure 91 mm[Hg] Wolbach Loughrin PA-C Work Phone: [facility] 10-07-2024 12:51-0400 Heart rate 115 /min Margarita Loughrin PA-C Work Phone: [facility] 10-07-2024 12:51-0400 Systolic blood pressure 129 mm[Hg] Margarita Loughrin PA-C Work Phone: [facility] 09-14-2024 15:01-0500 Body height 167.6 cm Dion Frazier MD Work Phone: [facility] 09-14-2024 15:01-0500 Body mass index (BMI) [Ratio] 24.86 kg/m2 Dion Frazier MD Work Phone: [facility] 09-14-2024 15:01-0500 Body temperature 97.5 [degF] Dion Frazier MD Work Phone: [facility] 09-14-2024 15:01-0500 Body weight 69.85 kg Dion Frazier MD Work Phone: [facility] 09-14-2024 15:01-0500 Diastolic blood pressure 70 mm[Hg] Dion Frazier MD Work Phone: [facility] 09-14-2024 15:01-0500 Heart rate 69 /min Dion Frazier MD Work Phone: [facility] 09-14-2024 15:01-0500 Respiratory rate 22 /min Dion Frazier MD Work Phone: [facility] 09-14-2024 15:01-0500 SaO2% (BldA) [Mass fraction] 97 % Dion Frazier MD Work Phone: [facility] 09-14-2024 15:01-0500 Systolic blood pressure 130 mm[Hg] Dion Frazier MD Work Phone: [facility] 08-05-2024 15:02-0500 Body height 167.6 cm Ashley Elizondo [employer] Work Phone: [facility] 08-05-2024 15:02-0500 Body mass index (BMI) [Ratio] 25.18 kg/m2 Ashley Elizondo [employer] Work Phone: [facility] 08-05-2024 15:02-0500 Body temperature 97.59 [degF] Ashley Elizondo [employer] Work Phone: [facility] 08-05-2024 15:02-0500 Body weight 70.76 kg Ashley Elizondo [employer] Work Phone: [facility] 08-05-2024 15:02-0500 Diastolic blood pressure 76 mm[Hg] Ashley Elizondo [employer] Work Phone: [facility] 08-05-2024 15:02-0500 Heart rate 104 /min Ashley Elizondo [employer] Work Phone: [facility] 08-05-2024 15:02-0500 Respiratory rate 18 /min Ashley Elizondo [employer] Work Phone: [facility] 08-05-2024 15:02-0500 SaO2% (BldA) [Mass fraction] 94 % Ashley Elizondo [employer] Work Phone: [facility] 08-05-2024 15:02-0500 Systolic blood pressure 138 mm[Hg] Ashley Elizondo [employer] Work Phone: [facility] 07-19-2024 13:02-0500 Body height 167.6 cm Ashley Elizondo [employer] Work Phone: [facility] 07-19-2024 13:02-0500 Body mass index (BMI) [Ratio] 24.69 kg/m2 Ashley Elizondo [employer] Work Phone: [facility] 07-19-2024 13:02-0500 Body temperature 98.2 [degF] Ashley Elizondo [employer] Work Phone: [facility] 07-19-2024 13:02-0500 Body weight 69.4 kg Ashley Elizondo [employer] Work Phone: [facility] 07-19-2024 13:02-0500 Diastolic blood pressure 76 mm[Hg] Ashley Elizondo [employer] Work Phone: [facility] 07-19-2024 13:02-0500 Respiratory rate 18 /min Ashley Elizondo [employer] Work Phone: [facility] 07-19-2024 13:02-0500 Systolic blood pressure 128 mm[Hg] Ashley Elizondo [employer] Work Phone: [facility] 05-27-2024 11:28-0500 Body height 167.6 cm Ashley Elizondo [employer] Work Phone: [facility] 05-27-2024 11:28-0500 Body mass index (BMI) [Ratio] 25.11 kg/m2 Ashley Elizondo [employer] Work Phone: [facility] 05-27-2024 11:28-0500 Body temperature 97.7 [degF] Ashley Elizondo [employer] Work Phone: [facility] 05-27-2024 11:28-0500 Body weight 70.58 kg Ashley Daviespatrick [employer] Work Phone: [facility] 05-27-2024 11:28-0500 Diastolic blood pressure 78 mm[Hg] Ashley Elizondo [employer] Work Phone: [facility] 05-27-2024 11:28-0500 Heart rate 77 /min Ashley Elizondo [employer] Work Phone: [facility] 05-27-2024 11:28-0500 SaO2% (BldA) [Mass fraction] 90 % Ashley Elizondo [employer] Work Phone: [facility] 05-27-2024 11:28-0500 Systolic blood pressure 138 mm[Hg] Ashley Elizondo [employer] Work Phone: [facility] 04-30-2024 11:25-0400 Body height 167.6 cm Preet Doher DO Work Phone: [facility] 04-30-2024 11:25-0400 Body mass index (BMI) [Ratio] 25.82 kg/m2 Preet Doher DO Work Phone: [facility] 04-30-2024 11:25-0400 Body weight 72.58 kg Preet Doher DO Work Phone: [facility] 04-30-2024 11:25-0400 Diastolic blood pressure 73 mm[Hg] Preet Doher DO Work Phone: [facility] 04-30-2024 11:25-0400 Heart rate 66 /min Preet Doher DO Work Phone: [facility] 04-30-2024 11:25-0400 Systolic blood pressure 155 mm[Hg] Preet Doher DO Work Phone: [facility] 01-23-2024 10:06-0400 Body mass index (BMI) [Ratio] 25.84 kg/m2 Preet Doher DO Work Phone: [facility] 01-23-2024 10:06-0400 Body weight 72.62 kg Preet Oliva DO Work Phone: [facility] 01-23-2024 10:06-0400 Diastolic blood pressure 70 mm[Hg] Preet Oliva DO Work Phone: [facility] 01-23-2024 10:06-0400 Heart rate 55 /min Preet Oliva DO Work Phone: [facility] 01-23-2024 10:06-0400 Systolic blood pressure 158 mm[Hg] Preet Oliva DO Work Phone: [facility] Encounters Encounter Date Encounter Type Care Provider Facility Start: 02-12-2025 End: 02-12-20[facility] Start: 02-09-2025 End: 02-11-2025 ambulatory DION [facility] Start: 02-09-2025 Encounter for other preprocedural examination [facility] Start: 01-05-2025 End: 01-05-2025 Telephone encounter Margarita Arevalo PA-C Work Phone: Neurology Comment on above: Appointment (Left vo icemail regarding scheduling follow up with Margarita in 3 months (Mar 2025), and new consult with Virginia Camacho, the [facility] social media designer, scheduling number included for call back.) Start: 01-04-2025 End: 01-04-2025 Telemedicine consultation with patient Margarita Irina ROLLE Work Phone: Neurology Start: 01-04-2025 End: 01-04-2025 ambulatory Margarita Arevalo PA-C Work Phone: Neurology Comment on above: Alzheimer's disease (HCC) (Primary Dx); Probable Alzheimer's disease - LATE ONSET (> 65 years) [331.0AS] Start: 12-16-2024 End: 12-16-2024 Bamboo flowsheet Dion Frazier MD Work Phone: [facility] Start: 12-16-2024 End: 12-16-2024 Bamboo flowsheet Dion Frazier MD Work Phone: [facility] Start: 12-16-2024 End: 12-16-2024 Office outpatient visit 25 minutes Dion Frazier MD Work Phone: [facility] Comment on above: Primary hypertension (CMS/HCC) (Primary Dx); Moderate persistent asthma without complication (CMS/HCC); Alzheimer's dementia with mood disturbance, unspecified dementia severity, unspecified timing of dementia onset (CMS/HCC); Coronary artery disease involving [place] coronary artery of [place] heart without angina pectoris (CMS/HCC) Start: 12-16-2024 End: 12-16-2024 ambulatory DION FRAZIER Not Available Start: 10-07-2024 End: 10-07-2024 ambulatory MARGARITA AREVALO Facility:[facility] Start: 10-07-2024 End: 10-07-2024 Patient encounter procedure Margarita ÁLVAREZ-Arnulfo Work Phone: Neurology Comment on above: Alzheimer's disease (HCC) (Primary Dx) Start: 09-14-2024 End: 09-14-2024 Office outpatient visit 25 minutes Dion Frazier MD Work Phone: [facility] Comment on above: Primary hypertension (CMS/HCC) (Primary Dx); Moderate persistent asthma without complication (CMS/HCC); Alzheimer's dementia with mood disturbance, unspecified dementia severity, unspecified timing of dementia onset (CMS/HCC); Coronary artery disease involving [place] coronary artery of [place] heart without angina pectoris (CMS/HCC) Start: 09-14-2024 End: 09-14-2024 ambulatory DION FRAZIER Not Available Start: 09-14-2024 End: 09-14-2024 Bamboo flowsheet Dion Frazier MD Work Phone: [facility] Start: 09-14-2024 End: 09-14-2024 Bamboo flowsheet Dion Frazier MD Work Phone: [facility] Start: 08-05-2024 End: 08-05-2024 Emergency department patient visit [facility] Start: 08-05-2024 End: 08-05-2024 Office outpatient visit 10 minutes Ashley Elizondo [employer] Work Phone: [facility] Comment on above: Upper respiratory in fection with cough and congestion (Primary Dx) Start: 08-05-2024 End: 08-05-2024 ambulatory ASHLEY ELIZONDO Not Available Start: 07-29-2024 End: 07-30-2024 Emergency department patient visit [facility] Start: 07-19-2024 End: 07-19-2024 Bamboo flowsheet Ashley Elizondo [employer] Work Phone: [facility] Start: 07-19-2024 End: 07-19-2024 Bamboo flowsheet Ashley Elizondo [employer] Work Phone: [facility] Start: 07-19-2024 End: 07-19-2024 Patient encounter procedure Ashley Elizondo [employer] Work Phone: [facility] Comment on above: Medicare annual well ness visit, subsequent (Primary Dx) Start: 07-19-2024 End: 07-19-2024 ambulatory ASHLEY ELIZONDO Not Available Start: 07-15-2024 ambulatory [facility] Start: 06-22-2024 End: 06-28-2024 Telephone encounter Hyun Elaine PT [facility] Comment on above: re: Missed PT Eval; fu (4x's w/ unable to contact.) Start: 06-21-[address] [facility] Start: 06-16-2024 End: 06-21-2024 Telephone encounter Hyun Elaine PT [facility] Comment on above: PT for Alzheimer dem entia / freq falls Start: 06-15-2024 End: 06-15-2024 Orders Only Ashley Thomastrick [employer] Work Phone: [facility] Comment on above: Frequent falls (Prim efren Dx); Alzheimer's dementia with mood disturbance, unspecified dementia severity, unspecified timing of dementia onset (CMS/HCC) Start: 06-14-2024 End: 06-15-2024 Telephone encounter Preet Oliva DO Work Phone: Neurology Comment on above: Patient Question Start: 05-27-2024 End: 05-27-2024 Bamboo flowsheet Ashley Elizondo [employer] Work Phone: [facility] Start: 05-27-2024 End: 05-27-2024 Bamboo flowsheet Ashley Elizondo [employer] Work Phone: [facility] Start: 05-27-2024 End: 05-27-2024 Office outpatient visit 15 minutes Ashley Thomastrick [employer] Work Phone: [facility] Comment on above: Frequent falls (Prim efren Dx) Start: 05-27-2024 End: 05-27-2024 ambulatory ASHLEY ELIZONDO Not Available Start: 05-04-2024 End: 05-04-2024 Telephone encounter Margarita Arevalo PA-C Work Phone: Neurology Start: 04-30-2024 End: 04-30-2024 ambulatory PREET SPIKE Facility:[facility] Start: 04-30-2024 End: 04-30-2024 Office outpatient visit 40 minutes Preet Oliva DO Work Phone: Neurology Comment on above: 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, psychotic disturbance, mood disturbance, or anxiety (HCC) (Primary Dx) Start: 02-15-2024 End: 02-15-2024 ambulatory PREET OLIVA Facility:[facility] Start: 02-15-2024 End: 02-15-2024 Subsequent hospital visit by physician Mri 6 Radio Main Q (I-Stat/1.5t/3t) Work Phone: MRI Q Comment on above: 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, psychotic disturbance, mood disturbance, or anxiety (HCC) [G30.1, F02.A0] Start: 01-23-2024 End: 01-23-2024 ambulatory PREET OLIVA Facility:[facility] Start: 01-23-2024 End: 01-23-2024 Office outpatient new 60 minutes Preet Oliva DO Work Phone: Neurology Comment on above: 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, psychotic disturbance, mood disturbance, or anxiety (HCC) (Primary Dx) Start: 12-30-2023 End: 12-30-2023 ambulatory JONAS RIGOBERTO Not Available Start: 06-30-2023 Patient encounter procedure Ashley Elizondo [employer] Work Phone: [facility] Start: 10-01-2021 End: 10-02-2021 ambulatory SHAIKH RIGOBERTO Facility: Procedures Date Procedure Procedure Detail Performing Clinician Start: 02-09-2025 Antibody screen SHAIKH RIGOBERTO Comment on above: Performed By: #### C BCA, PINR, [id number], CMP, [id number], [id number] #### [facility] ([id number]) [address] [place] [address] Start: 02-15-2024 3d rendering w/interp&postproc diff work station Preet Oliva DO Work Phone: Start: 02-15-2024 Mri brain brain stem w/o contrast material Preet Oliva DO Work Phone: Plan of Treatment Date Care Activity Detail Author Start: 08-05-2027 Diabetes Screening Diabetes Screenin aleksandra [facility] Start: 07-19-2025 Medicare Annual Wellness (AWV) Medicare Annual Wellness (AWV) [facility] Start: 06-20-2025 End: 06-20-2025 Patient encounter procedure 06/20/2025 1:30 PM EST Office Visit [facility] [address] [place] [address] Dion Frazier MD [address] [place] [address] [facility] Start: 01-04-2025 End: 01-04-2025 Follow-up encounter 01/04/2025 3:45 PM EDT [facility] [address] [id number] Margarita Arevalo PA-C [address] [place] [address] 3 month follow up Neurology Comment on above: 3 month follow up Start: 12-16-2024 End: 12-16-2024 Patient encounter procedure [facility] Comment on above: Arrived Start: 11-16-2024 End: 11-16-2024 Patient encounter procedure [facility] Start: 11-10-2024 End: 11-10-2024 Patient encounter procedure 11/10/2024 11:30 AM EDT Office Visit Neurology [address] [place] [id number] Margarita Arevalo PA-C [address] [place] [address] Mild late onset Alzheimer's dementia without behavioral disturbance, psychotic d... 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 Start: 09-14-2024 End: 09-14-2024 Patient encounter procedure 09/14/2024 2:45 PM EST Office Visit [facility] [address] [place] [address] Dion Frazier MD [address] [place] [address] Arrived [facility] Comment on above: Arrived Start: 07-19-2024 End: 07-19-2024 Patient encounter procedure 07/19/2024 1:00 PM EST Office Visit [facility] [address] [place] [id number] Ashley Elizondo, SHANELL [address] [place] [address] Arrived [facility] Comment on above: Arrived Start: 07-14-2024 Advance Directive Discussion Advance Directive Discussion [facility] Start: 07-14-2024 Medicare Advantage Annual Wellness Visit Medicare Advantage Annual Wellness Visit [facility] Start: 06-30-2024 Medicare Annual Wellness (AWV) Medicare Annual Wellness (AWV) [facility] Start: 06-30-2024 End: 06-30-2024 Patient encounter procedure 06/30/2024 1:00 PM EST Office Visit [facility] [address] [place] [id number] Ashley Elizondo, SHANELL [address] [place] [address] [facility] Start: 06-22-2024 End: 06-22-2024 ambulatory 06/22/2024 2:30 PM EST Evaluation [facility] [address] JUAN FRANCISCO [facility] [place] [address] Hyun Elaine, PT [facility] Start: 04-30-2024 End: 04-30-2024 Patient encounter procedure 04/30/2024 11:30 AM EDT Office Visit Neurology [address] [place] [id number] Preet Oliva DO [address] [place] [id number] 3 month post-MRI FU Neurology Comment on above: 3 month post-MRI FU Start: 03-14-2024 Covid-19 Vaccine ( season) Covid-19 Vaccine ( season) [facility] Start: 03-14-2024 Influenza vaccination Influenza Vacc ine (#1) [facility] Start: 02-15-2024 End: 02-15-2024 Patient encounter procedure 02/15/2024 11:40 AM EDT Appointment MRI Q [address] [place] [address] MRI brain w quant wo ivcon MRI Q Comment on above: MRI brain w quant wo ivcon Start: 01-23-2024 End: 04-23-2024 VITAMIN B1 (THIAMINE), WHOLE BLOOD VITAMIN B1 (THIAMINE), WHOLE BLOOD Lab Routine Mild late onset Alzheimer's dementia without behavioral disturbance, psychotic disturbance, mood disturbance, or anxiety (HCC) Expected: 01/23/2024, Expires: 04/23/2024 [facility] Comment on above: Expected: 01/23/2024 , Expires: 04/23/2024 Start: 07-14-2023 Advance Directive Discussion Advance Directive Discussion [facility] Start: 07-14-2023 Behavioral Health Screening Behavioral Health Screening [facility] Start: 03-14-2023 Covid-19 Vaccine () Covid-19 Vaccine () [facility] Start: 04-16-2014 Diabetes Screening Diabetes Screenin g [facility] Start: 2012 RSV Vaccine (1 - 1-d ose 75+ series) RSV Vaccine (1 - 1-dose 75+ series) [facility] Start: 1997 RSV Vaccine (1 - 1-d ose 60+ series) RSV Vaccine (1 - 1-dose 60+ series) [facility] Start: 1987 Shingrix Vaccine (1 of 2) Shingrix Vaccine (1 of 2) [facility] Start: 1956 Urine microalbumin profile DTaP,Tdap,Td Vaccine (1 - Tdap) [facility] Start: 1955 Anxiety Screening Anxiety Screening [facility] Start: 1955 Depression Screening Depression Scre ening [facility] Start: 1955 Spirometry Spirometry [facility] End: 02-21-2025 MR Brain WO contrast MRI BRAIN W QUANT WO IVCON Radiology Routine Mild late onset Alzheimer's dementia without behavioral disturbance, psychotic disturbance, mood disturbance, or anxiety (HCC) 1 Occurrences starting 01/23/2024 until 02/21/2025 [facility] Work Phone: Comment on above: 1 Occurrences starti ng 01/23/2024 until 02/21/2025 End: 02-21-2025 MR Unspecified body region 3D post processing MRI 3D POST PROCESSING Radiology Routine Mild late onset Alzheimer's dementia without behavioral disturbance, psychotic disturbance, mood disturbance, or anxiety (HCC) 1 Occurrences starting 01/23/2024 until 02/21/2025 [facility] Comment on above: 1 Occurrences starti ng 01/23/2024 until 02/21/2025 Immunizations Immunization Date Immunization Notes Care Provider Froy jean baptiste 03-22-2022 Seasonal, quadrivale nt, recombinant, injectable influenza vaccine, preservative free Ashley Elizondo [employer] Work Phone: [facility] 03-22-2022 influenza virus vacc ine, unspecified formulation Preet Oliva DO Work Phone: [facility] 07-30-2021 Influenza, injectabl e, Madin Samantha Canine Kidney, preservative free, quadrivalent Ashley Elizondo [employer] Work Phone: [facility] 05-09-2020 Seasonal, quadrivale nt, recombinant, injectable influenza vaccine, preservative free Ashley Elizondo [employer] Work Phone: [facility] 04-24-2017 pneumococcal conjuga te vaccine, 13 valent Ashley Elizondo [employer] Work Phone: [facility] 07-14-2007 pneumococcal polysaccharide vaccine, 23 valent Ashley Elizondo [employer] Work Phone: [facility] Payers Date Payer Category Payer Medicare [id number] 2023 Medicare (Managed Care) 1.2. [id number] 2023 Unknown [facility] MEDICARE ADVANTAGE O [id number] 2023-[facility] [phone] [address] [place] [address] O [id number] 2023 Medicare [id number] 1959 Medicare [id number] 1937 Unknown [id number] 93 1937 Unknown [id number] 259 1937 Unknown [id number] 259 1937 Unknown [id number] 259 1937 Unknown [id number] 259 1937 Unknown [id number] 259 1937 Unknown [id number] 259 1937 Unknown [id number] 286 1937 Unknown [id number] 286 1937 Unknown [id number] 286 1937 Unknown [id number] [id number] 286 1937 Unknown [id number] 286 1937 Unknown [id number] 286 Unknown [id number] Social History Date Type Detail Facility Start: 01-23-2024 Tobacco smoking stat us NHIS Ex-smoker [facility] History of tobacco use Current smoker [facility] Start: 01-23-2024 End: 10-07-2024 Alcohol intake Current drinker of alcohol (finding) [facility] Start: 01-23-2024 End: 10-07-2024 History of Social function [facility] Start: 01-23-2024 End: 10-07-2024 Tobacco use panel [facility] National Score (1-10 0), lower number is lower risk 65 [facility] Start: 01-23-2024 Tobacco Comment He msoked 1-2 PPd x 25-30 years, quit 20-25 years ago [facility] Start: 1935 Sex Assigned At Not on file [facility] Start: 12-30-2023 Tobacco smoking stat us NVIS Never smoked tobacco [facility] Start: 12-30-2023 Tobacco use and exposure Smokeless tobacco non-user [facility] How often to you hav e a drink containing alcohol? 4 or more times a week [facility] How many standard drinks containing alcohol do you have on a typical day? 1 or 2 [facility] Start: 06-16-2023 Alcohol Comment caffeine: 1-2 cups per day [facility] Within the last year , have you been afraid of your partner or ex-partner? No [facility] Are you now , , , , never or living with a partner? [facility] How often to you hav e a drink containing alcohol? Never [facility] Do you feel stress - tense, restless, nervous, or anxious, or unable to sleep at night because your mind is troubled all the time - these days [OSQ] To some extent [facility] (I/We) worried doctors hospital er (my/our) food would run out before (I/we) got money to buy more. Never true [facility] How often do you nee d to have someone help you when you read instructions, pamphlets, or other written material from your doctor or pharmacy [SILS] Often [facility] NEGATED: Highlighted rowStart: OSCAR History of tobacco use Passive smoker [facility] Clinical Notes 01-23-2024 to 01-05-2025 Telephone Encounter - Jackson Alegre - 01/05/2025 2:50 PM EDTTelephone Encounter - Jackson Alegre - 01/05/2025 2:50 PM EDTLMargarita barrett PA-C - 01/04/2025 3:42 PM EDTPatient Instructions Note Date & Type Note Facility 01-05-2025 Telephone encounter Note Left voicemail regarding scheduling follow up with Margarita in 3 months (Mar 2025), and new consult with Virginia Camacho, the [facility] social media designer, scheduling number included for call back. [facility] 01-05-2025 Miscellaneous Notes Left voicemail regarding scheduling follow up with Margarita in 3 months (Mar 2025), and new consult with Virginia Camacho, the [facility] social media designer, scheduling number included for call back. documented in this encounter [facility] 01-04-2025 Note HNO ID: [id number] Author: MARGARITA AREVALO PA-C Service: ? Author Type: Physician Pension Administrator Type: Progress Notes Filed: 01/04/2025 16:10 Note Text: Derrick Monae 1935 [address] [place] [address] January 04, 2025 Time: 3:43 PM [facility] VIRTUAL VISIT I have communicated my name and active licensure. The patient's identity and physical location were verified at the time of this visit. Either the patient or their legal senior sales representative has been informed of the risks and benefits of -- and alternatives to -- treatment through a remote evaluation and consents to proceed with the evaluation remotely. Accompanied by: son and spouse SUBJECTIVE Derrick Monae is a pleasant 89 year old year old male seen today for a follow up/virtual visit. He is being followed for Late Onset AD and irritability. Patient was last seen in September 2024, we held Seroquel and started Zoloft. states that he is taking the Zoloft, he is tolerating it. Son feels that it is helping overall. He left the house, his found him in the orchard looking at the trees. He fell at home. He did not hit his head, no LOC. He continues to have memory loss, confusion, asking for loved ones. We discussed how to approach these moments. PAST MEDICAL HISTORY Diagnosis Date CAD (coronary artery disease) COPD (chronic obstructive pulmonary disease) ([facility]) GERD (gastroesophageal reflux disease) SOCIAL HISTORY Social History Tobacco Use Smoking status: Former Tobacco comments: He msoked 1-2 PPd x 25-30 years, quit 20-25 years ago Substance Use Topics Alcohol use: Yes Comment: He drinks 2 beers daily Drug use: No Social History reviewed by Margarita Arevalo PA-C OBJECTIVE Current Outpatient Medications on File Prior to Visit Medication Sig sertraline (ZOLOFT) 50 mg tablet Take 1 tablet by mouth once daily. memantine (NAMENDA) 10 mg tablet Take 1 tablet by mouth two times a day. albuterol HFA (PROVENTIL HFA, VENTOLIN HFA) 90 mcg/actuation inhaler Inhale 2 Puffs as instructed every 4 hours as needed. fluticasone (FLONASE) 50 mcg/actuation nasal spray Use 1 [place] in the nose once daily. loratadine-pseudoephedrine ER (CLARITIN-D 24) 10-240 mg Tb24 Take 1 tablet by mouth once daily. fluticasone furoate-vilanterol (BREO ELLIPTA) 50-25 mcg/dose inhaler Inhale 1 Inhalation as instructed once daily. donepezil (ARICEPT) 10 mg tablet Take 1 tablet by mouth daily at bedtime. isosorbide mononitrate ER (IMDUR) 30 mg 24 [...] facility-administered medications on file prior to visit. MoCA: Not assessed today ASSESSMENT: Late Onset Alzheimer's Disease Agitation PLAN: -Continue Aricept and Namenda The following approved medication requests have been transmitted electronically. Requested Prescriptions Signed Prescriptions Disp Refills sertraline (ZOLOFT) 50 mg tablet 60 tablet 5 Sig: Take 1.5 tablets by mouth once daily. Margarita Arevalo PA-C I spent a total of 25 minutes with patient and spouse, that time was spent in medical review as above in addition to medical counseling. [facility] 01-04-2025 History of Presen t illness Narrative Derrick Monae 1935 [address] [facility] [address] January 04, 2025 Time: 3:43 PM [facility] VIRTUAL VISIT I have communicated my name and active licensure. The patient's identity and physical location were verified at the time of this visit. Either the patient or their legal senior sales representative has been informed of the risks and benefits of -- and alternatives to -- treatment through a remote evaluation and consents to proceed with the evaluation remotely. Accompanied by: son and spouse SUBJECTIVE Derrick Monae is a pleasant 89 year old year old male seen today for a follow up/virtual visit. He is being followed for Late Onset AD and irritability. Patient was last seen in September 2024, we held Seroquel and started Zoloft. states that he is taking the Zoloft, he is tolerating it. Son feels that it is helping overall. He left the house, his found him in the orchard looking at the trees. He fell at home. He did not hit his head, no LOC. He continues to have memory loss, confusion, asking for loved ones. We discussed how to approach these moments. PAST MEDICAL HISTORY Diagnosis Date CAD (coronary artery disease) COPD (chronic obstructive pulmonary disease) ([facility]) GERD (gastroesophageal reflux disease) SOCIAL HISTORY Social History Tobacco Use Smoking status: Former Tobacco comments: He msoked 1-2 PPd x 25-30 years, quit 20-25 years ago Substance Use Topics Alcohol use: Yes Comment: He drinks 2 beers daily Drug use: No Social History reviewed by Margarita Arevalo PA-C OBJECTIVE Current Outpatient Medications on File Prior to Visit Medication Sig sertraline (ZOLOFT) 50 mg tablet Take 1 tablet by mouth once daily. memantine (NAMENDA) 10 mg tablet Take 1 tablet by mouth two times a day. albuterol HFA (PROVENTIL HFA, VENTOLIN HFA) 90 mcg/actuation inhaler Inhale 2 Puffs as instructed every 4 hours as needed. fluticasone (FLONASE) 50 mcg/actuation nasal spray Use 1 [place] in the nose once daily. loratadine-pseudoephedrine ER (CLARITIN-D 24) 10-240 mg Tb24 Take 1 tablet by mouth once daily. fluticasone furoate-vilanterol (BREO ELLIPTA) 50-25 mcg/dose inhaler Inhale 1 Inhalation as instructed once daily. donepezil (ARICEPT) 10 mg tablet Take 1 tablet by mouth daily at bedtime. isosorbide mononitrate ER (IMDUR) 30 mg 24 [...] facility-administered medications on file prior to visit. MoCA: Not assessed today ASSESSMENT: Late Onset Alzheimer's Disease Agitation PLAN: -Continue Aricept and Namenda The following approved medication requests have been transmitted electronically. Requested Prescriptions Signed Prescriptions Disp Refills sertraline (ZOLOFT) 50 mg tablet 60 tablet 5 Sig: Take 1.5 tablets by mouth once daily. Margarita Arevalo PA-C I spent a total of 25 minutes with patient and spouse, that time was spent in medical review as above in addition to medical counseling. documented in this encounter [facility] 12-16-2024 History of Presen t illness Narrative Associated Problem(s): Primary hypertension (CMS/HCC) BP controlled and monitor PRN. Associated Problem(s): Moderate persistent asthma Breathing stable and follow with pulmonology. Associated Problem(s): CAD (coronary artery disease) ([facility]) No symptoms and monitor. Associated Problem(s): Alzheimer's dementia ([facility]) Symptoms stable and continue medication. Follow with neurology. Images from the original note were not included. Subjective Patient ID: Derrick Monae is a 89 y.o. male who presents for Follow-up (3m). Follow up HTN, alzheimers, asthma, and CAD. Patient stable today. Checking BP PRN and typically controlled. BP normal today. Taking medication daily and tolerating without side effects. Alzheimer's disease continues to worsen. Following with neurology and no recent medication changes. Continued forgetfulness. Not having outbursts or behavior changes. CAD stable and no chest pain or palpitations. Follows with pulmonology for asthma and stable on inhalers. Review of Systems Constitutional: Negative for fatigue. Respiratory: Negative for cough, shortness of breath and wheezing. Cardiovascular: Negative for chest pain and palpitations. Gastrointestinal: Negative for abdominal pain, diarrhea, nausea and vomiting. Genitourinary: Negative for dysuria. Objective Physical Exam Constitutional: General: He is not in acute distress. Appearance: Normal appearance. HENT: Head: Normocephalic. Right Ear: Tympanic membrane and ear canal normal. Left Ear: Tympanic membrane and ear canal normal. Eyes: Extraocular Movements: Extraocular movements intact. Pupils: Pupils are equal, round, and reactive to light. Cardiovascular: Rate and Rhythm: Normal rate and regular rhythm. Heart sounds: No murmur heard. No friction rub. No gallop. Pulmonary: Breath sounds: Normal breath sounds. No wheezing, rhonchi or rales. Abdominal: General: Bowel sounds are normal. There is no distension. Palpations: Abdomen is soft. Tenderness: There is no abdominal tenderness. There is no guarding or rebound. Musculoskeletal: Left lower leg: No edema. Neurological: Mental Status: He is alert. Assessment/Plan Problem List Items Addressed This Visit CAD (coronary artery disease) (CMS/HCC) No symptoms and monitor. Moderate persistent asthma Breathing stable and follow with pulmonology. Primary hypertension (CMS/HCC) - Primary BP controlled and monitor PRN. Alzheimer's dementia (CMS/HCC) Symptoms stable and continue medication. Follow with neurology. documented in this encounter [facility] 10-07-2024 Instructions Margarita Arevalo PA-C - 10/07/2024 1:18 PM EDT -Let's hold the Seroquel for now, you might be less tired -Start Zoloft 50mg for overall mood and frustration -message me in about a month to let me know what you think -Continue the Aricept and Namenda same dose -Recommend a family discussion regarding family planning -You are no longer safe to drive -Follow up in about 3 months documented in this encounter [facility] 10-07-2024 History of Presen t illness Narrative Images from the original note were not included. Derrick Monae 1935 [address] [facility] [address] October 07, 2024 Time: 11:58 AM [facility] FOLLOW-UP NOTE Accompanied by: spouse and daughter (she is visiting, lives in [place]) SUBJECTIVE Derrick Monae is a pleasant 89 year old year old male seen today for a follow up visit. 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 Patient was last seen in with Dr. Oliva. At that time anti-amyloid therapies were discuss, Namenda was started. Today, patient presents for recheck. Patient is taking the Namenda. He is tolerating it without side effects but spouse states that it is not helping him. He is cognitively worse, daughter agrees. She is visiting from [place], here for about one month. Spouse states that patient frequently says, I'm so mixed up. I'm so tired. They are dealing with anger and irritability, so PCP prescribed Seroquel, not sure of dose. Possibly contributing to the fatigue. Other interval history: Living Situation: with spouse and two sons ADL's : he has had occasional accidents. Spouse and daughter agree that he is not showering. We reviewed hygiene importance Driving: No, but is upset about this PAST MEDICAL HISTORY Diagnosis Date CAD (coronary artery disease) COPD (chronic obstructive pulmonary disease) ([facility]) GERD (gastroesophageal reflux disease) SOCIAL HISTORY Social History Tobacco Use Smoking status: Former Tobacco comments: He msoked 1-2 PPd x 25-30 years, quit 20-25 years ago Substance Use Topics Alcohol use: Yes Comment: He drinks 2 beers daily Drug use: No Social History reviewed by Margarita Arevalo PA-C Current Outpatient Medications on File Prior to Visit Medication Sig memantine (NAMENDA) 10 mg tablet Take 1 tablet by mouth two times a day. albuterol HFA (PROVENTIL HFA, VENTOLIN HFA) 90 mcg/actuation inhaler Inhale 2 Puffs as instructed every 4 hours as needed. fluticasone (FLONASE) 50 mcg/actuation nasal spray Use 1 [place] in the nose once daily. loratadine-pseudoephedrine ER (CLARITIN-D 24) 10-240 mg Tb24 Take 1 tablet by mouth once daily. fluticasone furoate-vilanterol (BREO ELLIPTA) 50-25 mcg/dose inhaler Inhale 1 Inhalation as instructed once daily. donepezil (ARICEPT) 10 mg tablet Take 1 tablet by mouth daily at bedtime. isosorbide mononitrate ER (IMDUR) 30 mg 24 [...] facility-administered medications on file prior to visit. Patient-Reported No data to display Activities of Daily Living (ADL) No data to display PROMIS-10 No data to display PHQ-9 No data to display (0-4) minimal depression (5-9) mild depression (10-14) moderate depression (15-19) moderately severe depression (20-27) severe depression Full History of PHQ-9 Scores No data to display Sleep No data to display No data to display Caregiver-Reported No data to display Dementia Severity Rating Scale (DSRS) No data to display OBJECTIVE MMSE was 23/30 on 04/2024 MoCA Past Scores 01/23/2024 MoCA MOCA TOTAL SCORE 13 out of 30 Visuospatial/ Executive 2 Naming 2 Attention 4 Language 0 Abstraction 0 Delayed Recall 0 Orientation 5 Physical Exam: Vital Signs: BP 129/91 Pulse 115 Wt 69.6 kg (153 lb 8 oz) BMI 24.78 kg/m General: WDWN, NAD. Awake, alert. HEENT: NC/AT. Neurological Exam: Cognition & Orientation:alert Appearance: normal grooming Eye contact: normal Facial expression: appropriate, upset when we discuss driving Psychomotor: normal Speech/Language: unremarkable -can name, repeat with no dysarthria Emotional state: mostly calm Thought Process: logical but amnestic and repetitive- tells me many times that with him today is his and daughter Thought Content: appropriate Judgment: impaired due to lack of insight Insight: poor ASSESSMENT: Late Onset Alzheimer's Disease progressing Agitation, uncontrolled PLAN: -Let's hold the Seroquel for now, you might be less tired -Start Zoloft 50mg for overall mood and frustration -message me in about a month to let me know what you think -Continue the Aricept and Namenda same dose -Recommend a family discussion regarding family planning -discussion regarding safety, fall prevention and preventing infecions -You are no longer safe to drive -Follow up in about 3 months, virtual I spent a total of 40 minutes on the date of service which included preparing to see the patient, [id number] patient care, completing clinical documentation, counseling and educating the patient/family/caregiver, and ordering medications, tests, or procedures. JOSEF Mandujano PA-C [facility] documented in this encounter [facility] 10-07-2024 Note HNO ID: [id number] Author: MARGARITA AREVALO PA-C Service: ? Author Type: Physician Pension Administrator Type: Progress Notes Filed: 10/07/2024 14:21 Note Text: [facility] Monae 1935 [address] [facility] [address] October 07, 2024 Time: 11:58 AM [facility] FOLLOW-UP NOTE Accompanied by: spouse and daughter (she is visiting, lives in [place]) SUBJECTIVE Derrick Monae is a pleasant 89 year old year old male seen today for a follow up visit. 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 Patient was last seen in with Dr. Oliva. At that time anti-amyloid therapies were discuss, Namenda was started. Today, patient presents for recheck. Patient is taking the Namenda. He is tolerating it without side effects but spouse states that it is not helping him. He is cognitively worse, daughter agrees. She is visiting from [place], here for about one month. Spouse states that patient frequently says, I'm so mixed up. I'm so tired. They are dealing with anger and irritability, so PCP prescribed Seroquel, not sure of dose. Possibly contributing to the fatigue. Other interval history: Living Situation: with spouse and two sons ADL's : he has had occasional accidents. Spouse and daughter agree that he is not showering. We reviewed hygiene importance Driving: No, but is upset about this ----- PAST MEDICAL HISTORY Diagnosis Date CAD (coronary artery disease) COPD (chronic obstructive pulmonary disease) ([facility]) GERD (gastroesophageal reflux disease) SOCIAL HISTORY Social History Tobacco Use Smoking status: Former Tobacco comments: He msoked 1-2 PPd x 25-30 years, quit 20-25 years ago Substance Use Topics Alcohol use: Yes Comment: He drinks 2 beers daily Drug use: No Social History reviewed by Margarita Arevalo PA-C Current Outpatient Medications on File Prior to Visit Medication Sig memantine (NAMENDA) 10 mg tablet Take 1 tablet by mouth two times a day. albuterol HFA (PROVENTIL HFA, VENTOLIN HFA) 90 mcg/actuation inhaler Inhale 2 Puffs as instructed every 4 hours as needed. fluticasone (FLONASE) 50 mcg/actuation nasal spray Use 1 [place] in the nose once daily. loratadine-pseudoephedrine ER (CLARITIN-D 24) 10-240 mg Tb24 Take 1 tablet by mouth once daily. fluticasone furoate-vilanterol (BREO ELLIPTA) 50-25 mcg/dose inhaler Inhale 1 Inhalation as instructed once daily. donepezil (ARICEPT) 10 mg tablet Take 1 tablet by mouth daily at bedtime. isosorbide mononitrate ER (IMDUR) 30 mg 24 [...] facility-administered medications on file prior to visit. Patient-Reported No data to display Activities of Daily Living (ADL) No data to display PROMIS-10 No data to display PHQ-9 No data to display (0-4) minimal depression (5-9) mild depression (10-14) moderate depression (15-19) moderately severe depression (20-27) severe depression Full History of PHQ-9 Scores No data to display Sleep No data to display No data to display Caregiver-Reported No data to display Dementia Severity Rating Scale (DSRS) No data to display ----- OBJECTIVE MMSE was 23/30 on 04/2024 [facility] Past Scores 01/23/2024 [facility] MOCA TOTAL SCORE 13 out of 30 Visuospatial/ Executive 2 Naming 2 Attention 4 Language 0 Abstraction 0 Delayed Recall 0 Orientation 5 Physical Exam: Vital Signs: BP 129/91 Pulse 115 Wt 69.6 kg (153 lb 8 oz) BMI 24.78 kg/m? General: WDWN, NAD. Awake, alert. HEENT: NC/AT. Neurological Exam: Cognition AND Orientation:alert Appearance: normal grooming Eye contact: normal Facial expression: appropriate, upset when we discuss driving Psychomotor: normal Speech/Language: unremarkable -can name, repeat with no dysarthria Emotional state: mostly calm Thought Process: logical but amnestic and repetitive- tells me many times that with him today is his and daughter Thought Content: appropriate Judgment: impaired due to lack of insight Insight: poor ASSESSMENT: Late Onset Alzheimer's Disease progressing Agitation, uncontrolled PLAN: -Let's hold the Seroquel for now, you might be less tired -Start Zoloft 50mg for overall mood and frustration -message me i (more content not included)... [facility] 09-14-[facility]24 History of Presen t illness Narrative Associated Problem(s): Primary hypertension (CMS/HCC) BP controlled and monitor PRN. Associated Problem(s): Moderate persistent asthma (CMS/HCC) Breathing stable and follow with pulmonology. Associated Problem(s): CAD (coronary artery disease) (CMS/HCC) No symptoms and monitor. Associated Problem(s): Alzheimer's dementia (CMS/HCC) Worsening behavior problems and add seroquel. Continue medication and follow with neurology. Images from the original note were not included. Subjective Patient ID: Derrick Monae is a 89 y.o. male who presents for Anxiety (Gets loud, and angry) and Depression. Follow up HTN, alzheimers, asthma, and CAD. Patient stable today. Checking BP PRN and typically controlled. BP normal today. Taking medication daily and tolerating without side effects. Alzheimer's disease slowly worsening. Following with neurology and scheduled at end october. Continued forgetfulness. Starting to have outbursts and behavior changes. Often irritable and states can be very mean. No recent medication change. CAD stable and no chest pain or palpitations. Review of Systems Constitutional: Negative for fatigue. Respiratory: Negative for cough, shortness of breath and wheezing. Cardiovascular: Negative for chest pain and palpitations. Gastrointestinal: Negative for abdominal pain, diarrhea, nausea and vomiting. Genitourinary: Negative for dysuria. Objective Physical Exam Constitutional: General: He is not in acute distress. Appearance: Normal appearance. HENT: Head: Normocephalic. Right Ear: Tympanic membrane and ear canal normal. Left Ear: Tympanic membrane and ear canal normal. Eyes: Extraocular Movements: Extraocular movements intact. Pupils: Pupils are equal, round, and reactive to light. Cardiovascular: Rate and Rhythm: Normal rate and regular rhythm. Heart sounds: No murmur heard. No friction rub. No gallop. Pulmonary: Breath sounds: Normal breath sounds. No wheezing, rhonchi or rales. Abdominal: General: Bowel sounds are normal. There is no distension. Palpations: Abdomen is soft. Tenderness: There is no abdominal tenderness. There is no guarding or rebound. Musculoskeletal: Left lower leg: No edema. Neurological: Mental Status: He is alert. Assessment/Plan Problem List Items Addressed This Visit CAD (coronary artery disease) (CMS/HCC) No symptoms and monitor. Moderate persistent asthma (CMS/HCC) Breathing stable and follow with pulmonology. Primary hypertension (CMS/HCC) - Primary BP controlled and monitor PRN. Alzheimer's dementia (CMS/HCC) Worsening behavior problems and add seroquel. Continue medication and follow with neurology. Relevant Medications QUEtiapine (SEROquel) 25 MG tablet documented in this encounter [facility] 08-05-2024 History of Presen t illness Narrative Associated Problem(s): Upper respiratory infection with cough and congestion Pt experiencing dyspnea and increased work of breathing while sitting in the office at rest, elevated HR of 107. Although his SPO2 is 94% on room air, I am concerned for patient having such increased work of breathing. At this time advised pt and to report to emergency room for further eval and treatment. Subjective Patient ID: Derrick Monae is a 89 y.o. male who presents for Cough (SOB, chest congestion x 4 days). HPI Productive cough Shortness of breath Fevers X4 days Denies: Chest pain Sore throat Headache Earache Review of Systems Constitutional: Positive for fatigue and fever. Negative for activity change, appetite change, chills, diaphoresis and unexpected weight change. HENT: Positive for congestion, rhinorrhea and sneezing. Negative for ear pain, sinus pressure, sinus pain, sore throat, trouble swallowing and voice change. Eyes: Negative for visual disturbance. Respiratory: Positive for cough and shortness of breath. Negative for chest tightness and wheezing. Cardiovascular: Negative for chest pain, palpitations and leg swelling. Gastrointestinal: Negative for abdominal distention, abdominal pain, blood in stool, constipation, diarrhea and vomiting. Genitourinary: Negative for decreased urine volume, dysuria, flank pain, frequency, hematuria and urgency. Musculoskeletal: Negative for arthralgias, gait problem, joint swelling and myalgias. Skin: Negative for rash. Neurological: Negative for dizziness, tremors, syncope, weakness, light-headedness and headaches. Psychiatric/Behavioral: Negative for decreased concentration and suicidal ideas. The patient is not nervous/anxious. Hematological: Does not bruise/bleed easily. Endocrine: Negative for cold intolerance, heat intolerance, polydipsia, polyphagia and polyuria. Objective Physical Exam Vitals reviewed. Constitutional: Appearance: Normal appearance. HENT: Right Ear: Tympanic membrane normal. Left Ear: Tympanic membrane normal. Nose: Nose normal. Mouth/Throat: Mouth: Mucous membranes are moist. Pharynx: Oropharynx is clear. Eyes: Pupils: Pupils are equal, round, and reactive to light. Cardiovascular: Rate and Rhythm: Normal rate and regular rhythm. Pulses: Normal pulses. Heart sounds: Normal heart sounds. Pulmonary: Effort: Pulmonary effort is normal. Tachypnea present. Breath sounds: Examination of the right-upper field reveals rhonchi. Examination of the left-upper field reveals rhonchi. Examination of the right-middle field reveals rhonchi. Examination of the left-middle field reveals rhonchi. Examination of the right-lower field reveals rhonchi. Examination of the left-lower field reveals rhonchi. Rhonchi present. Abdominal: General: Abdomen is flat. Bowel sounds are normal. Palpations: Abdomen is soft. Skin: Capillary Refill: Capillary refill takes less than 2 seconds. Neurological: Mental Status: He is alert. Assessment/Plan Problem List Items Addressed This Visit Upper respiratory infection with cough and congestion - Primary Pt experiencing dyspnea and increased work of breathing while sitting in the office at rest, elevated HR of 107. Although his SPO2 is 94% on room air, I am concerned for patient having such increased work of breathing. At this time advised pt and to report to emergency room for further eval and treatment. documented in this encounter [facility] 07-19-2024 History of Presen t illness Narrative Images from the original note were not included. Subjective : Chief Complaint: Derrick Monae is an 89 y.o. male here for an annual wellness visit. I have reviewed and reconciled the history and medication list with the patient today. Current Outpatient Medications Medication Sig Dispense Refill albuterol HFA 90 mcg/act inhaler Inhale 2 puffs every 4 (four) hours if needed for wheezing donepezil (Aricept) 10 MG tablet Take 10 mg by mouth at bedtime esomeprazole (NexIUM) [address] capsule Take 20 mg by mouth in the morning. Take before meals. Do not open capsule.. Fluticasone Furoate-Vilanterol (Breo Ellipta) 100-25 MCG/ACT aerosol powder Inhale 1 Dose 1 (one) time each day loratadine-pseudoephedrine ER (Claritin-D 24-hour) 10-240 MG 24 hr tablet Take 1 tablet by mouth in the morning. Do not crush, chew, or split.. memantine (Namenda) 10 MG tablet Take 10 mg by mouth in the morning and 10 mg in the evening. mometasone (Nasonex) 50 MCG/ACT nasal spray Administer 2 sprays into each nostril in the morning. No current facility-administered medications for this visit. Review of Systems Constitutional: Negative for activity change, appetite change, chills, diaphoresis, fatigue, fever and unexpected weight change. HENT: Negative for congestion, ear pain, rhinorrhea, sinus pressure, sinus pain, sneezing, sore throat, trouble swallowing and voice change. Eyes: Negative for visual disturbance. Respiratory: Negative for cough, chest tightness, shortness of breath and wheezing. Cardiovascular: Negative for chest pain, palpitations and leg swelling. Gastrointestinal: Negative for abdominal distention, abdominal pain, blood in stool, constipation, diarrhea and vomiting. Genitourinary: Negative for decreased urine volume, dysuria, flank pain, frequency, hematuria and urgency. Musculoskeletal: Negative for arthralgias, gait problem, joint swelling and myalgias. Skin: Negative for rash. Neurological: Negative for dizziness, tremors, syncope, weakness, light-headedness and headaches. Psychiatric/Behavioral: Positive for behavioral problems, confusion and sleep disturbance. Negative for decreased concentration and suicidal ideas. The patient is nervous/anxious. Pt has Alzheimer's Dementia; This is now his baseline Hematological: Does not bruise/bleed easily. Endocrine: Negative for cold intolerance, heat intolerance, polydipsia, polyphagia and polyuria. List of current healthcare providers: Patient Care Team: Dion Frazier MD as PCP - General (Family Medicine) Shaikh Rigoberto MD as PCP - Johan Elizondo NP as Nurse Practitioner (Family Medicine) Javid Marie MA (Family Medicine) Medicare Annual Visit Over the past 2 weeks, how often have you been bothered by any of the following problems? Little interest or pleasure in doing things: Not at all Feeling down, depressed, or hopeless: Not at all Patient Health Questionnaire-2 Score: 0 Over the past 2 weeks, how often have you been bothered by any of the following problems? Trouble falling or staying asleep, or sleeping too much: Not at all Feeling tired or having little energy: Nearly every day Poor appetite or overeating: Not at all Feeling bad about yourself - or that you are a failure or have let yourself or your family down: Not at all Trouble concentrating on things, such as reading the newspaper or watching television: Nearly every day Moving or speaking so slowly that other people could have noticed? Or the opposite - being so fidgety or restless that you have been moving around a lot more than usual.: Not at all Thoughts that you would be better off or hurting yourself in some way: Not at all Patient Health Questionnaire-9 Score: 6 Mcmanus Fall Risk History of Falling, Immediate or Within 3 Months: Yes Health Risk Assessment Form Do you need help eating, bathing, using the toilet, dressing, or getting around your home?: Yes Can you prepare your own meals?: No Can you do your own housework without help?: No Can you shop for groceries or clothes without help?: No Do you exercise for about 20 minutes 3 or more days a week?: No How confident are you that you can control and manage most of your health problems?: Not very confident Can you mange your money, credit cards and accounts, pay bills and taxes?: No Cognitive Screening Three Word Registration: Zuleyma Clark Picture Clock Drawing: Normal Clock - 2 Three Word Recall: 0 words correct - 0 Total Score (0-5 Points): 2 Advance Care Planning Do you have a living will?: Yes Do you have a medical power of workers compensation attorney?: Yes Who is your medical power of workers compensation attorney?: pedro monae Objective : BP 128/76 Temp 98.2 F Resp 18 Ht 5' 6 Wt 153 lb BMI 24.69 kg/m No results found. Physical Exam Assessment/Plan : The following health maintenance schedule was reviewed with the patient and provided in printed form in the after visit summary: Health Maintenance Topic Date Due Medicare Annual Wellness (AWV) 06/30/2024 Pneumococcal Vaccine: 65+ Years Completed Influenza Vaccine Discontinued Advance Care Planning Pt has advanced care directives. Will bring copy to next OV to be scanned into chart. No orders of the defined types were placed in this encounter. Electronically signed by Ashley Elizondo NP on July 19, 2024 documented in this encounter [facility] 06-25-2024 Telephone encounter Note 4th attempt unable to contact anyone [facility] 06-25-2024 Miscellaneous Notes 4th attempt unable to contact anyone Attempted but only rang; will try again. Tried # listed 2x's but would not go thru to notify of missed PT Eval. documented in this encounter [facility] 06-23-2024 Telephone encounter Note Attempted but only rang; will try again. [facility] 06-22-2024 Telephone encounter Note Tried # listed 2x's but would not go thru to notify of missed PT Eval. [facility] 06-21-2024 Telephone encounter Note Contacted and scheduled PT Eval 06/22 w/ Carlyle Elaine, PT. [facility] 06-21-2024 Miscellaneous Notes Contacted and scheduled PT Eval 06/22 w/ Carlyle Elaine, PT. Same as before. Tried to contact to schedule PT eval; but no answer / no machine. $35.00 copay / prior auth needed. documented in this encounter [facility] 06-18-2024 Telephone encounter Note Same as before. [facility] 06-16-2024 Telephone encounter Note Tried to contact to schedule PT eval; but no answer / no machine. $35.00 copay / prior auth needed. [facility] 06-15-2024 Telephone encounter Note Spoke with patient PCP office to discuss memantine titration schedule. Advised to titrate slowly and to reach out if patient experiences side effects to further advise. PCP office to call patient spouse to review. Tiarra Best RN [facility] 06-15-2024 Miscellaneous Notes Spoke with patient PCP office to discuss memantine titration schedule. Advised to titrate slowly and to reach out if patient experiences side effects to further advise. PCP office to call patient spouse to review. Tiarra Best RN Saeble from patient's PCP's office called asking if patient should be taking Namenda. Is currently not taking it. Please call [phone] documented in this encounter [facility] 06-14-2024 Telephone encounter Note Saeble from patient's PCP's office called asking if patient should be taking Namenda. Is currently not taking it. Please call [phone] [facility] 06-01-2024 History of Presen t illness Narrative Associated Problem(s): Frequent falls Was seen at [facility] on 05/04 for frequent falls. Was negative for UTI. Has MRI of brain done in 02/2024 Neurology started Donepezil, had initially ordered Namenda as well but decided to hold off due to falls. Associated Problem(s): Alzheimer's dementia ([facility]) Follows closely with Neurology Dr. Oliva @ [facility] Diagnosed with mild late onset Alzheimer's dementia; reports pt is aggressive and combative; Does not follow instructions well. Son has moved in with them to help care for him. Pt is no longer driving. would like formal diagnosis that patient is unsafe to drive. Will defer to [facility]. Images from the original note were not included. Subjective Patient ID: Derrick Monae is a 88 y.o. male who presents for Hospital Follow-up. HPI Neurology Dr. Oliva @ [facility] Diagnosed with mild late onset Alzheimer's dementia; Was seen at [facility] on 05/04 for frequent falls. Was negative for UTI. Has MRI of brain done in 02/2024 Neurology started Donepezil, had initially ordered Namenda as well but decided to hold off due to falls. reports pt is aggressive and combative; Does not follow instructions well. Son has moved in with them to help care for him. Pt is no longer driving. would like formal diagnosis that patient is unsafe to drive. Will defer to [facility]. I personally reached out to Dr. Oliva's office at [facility] and left an extensive message regarding pt recent falls and wifes concerns. Review of Systems Constitutional: Negative for activity change, appetite change, chills, diaphoresis, fatigue, fever and unexpected weight change. HENT: Negative for congestion, ear pain, rhinorrhea, sinus pressure, sinus pain, sneezing, sore throat, trouble swallowing and voice change. Eyes: Negative for visual disturbance. Respiratory: Negative for cough, chest tightness, shortness of breath and wheezing. Cardiovascular: Negative for chest pain, palpitations and leg swelling. Gastrointestinal: Negative for abdominal distention, abdominal pain, blood in stool, constipation, diarrhea and vomiting. Genitourinary: Negative for decreased urine volume, dysuria, flank pain, frequency, hematuria and urgency. Musculoskeletal: Negative for arthralgias, gait problem, joint swelling and myalgias. Skin: Negative for rash. Neurological: Negative for dizziness, tremors, syncope, weakness, light-headedness and headaches. Psychiatric/Behavioral: Positive for behavioral problems and confusion. Negative for decreased concentration and suicidal ideas. The patient is not nervous/anxious. Hematological: Does not bruise/bleed easily. Endocrine: Negative for cold intolerance, heat intolerance, polydipsia, polyphagia and polyuria. Objective Physical Exam Vitals reviewed. Constitutional: Appearance: Normal appearance. HENT: Head: Normocephalic and atraumatic. Right Ear: Tympanic membrane normal. Left Ear: Tympanic membrane normal. Nose: Nose normal. Mouth/Throat: Mouth: Mucous membranes are moist. Pharynx: Oropharynx is clear. Eyes: Pupils: Pupils are equal, round, and reactive to light. Cardiovascular: Rate and Rhythm: Normal rate and regular rhythm. Pulses: Normal pulses. Heart sounds: Normal heart sounds. Pulmonary: Effort: Pulmonary effort is normal. Breath sounds: Normal breath sounds. Abdominal: General: Abdomen is flat. Bowel sounds are normal. Palpations: Abdomen is soft. Musculoskeletal: General: Normal range of motion. Cervical back: Normal range of motion. Skin: General: Skin is warm and dry. Capillary Refill: Capillary refill takes less than 2 seconds. Neurological: General: No focal deficit present. Mental Status: He is alert and oriented to person, place, and time. Psychiatric: Mood and Affect: Mood normal. Behavior: Behavior normal. Assessment/Plan Problem List Items Addressed This Visit Frequent falls - Primary Was seen at [facility] on 05/04 for frequent falls. Was negative for UTI. Has MRI of brain done in 02/2024 Neurology started Donepezil, had initially ordered Namenda as well but decided to hold off due to falls. documented in this encounter [facility] 05-04-2024 Telephone encounter Note RN called spouse back and informed her that Dr. Oliva said to hold off on Namenda for now so as not to further complicate things. She was asked to provide update after visit to urgent care. She said that he is currently sleeping, but will take him. Amalia Albarran RN [facility] 05-04-2024 Miscellaneous Notes RN called spouse back and informed her that Dr. Oliva said to hold off on Namenda for now so as not to further complicate things. She was asked to provide update after visit to urgent care. She said that he is currently sleeping, but will take him. Amalia Albarran RN He did not start Memantine did not start at all. He has fallen a number of times. She got him a walker. He has deteriorated a lot in the last couple days. He has fallen a number times. He hasn't been hurt. He is more confused. She wanted to know why the namenda bottle was different than the AVS instructions for starting the namenda. I explained it was necessary to do titration to lessen potential side effects. I will message Dr. Oliva to see if he wants to hold off on starting namenda until he is checked out. She was advised to take him to urgent/express care to make sure there is no underlying cause for his increase in confusion and recent frequent falls. Amalia Albarran RN 05/04/24 Patient's spouse Pedro reached the office to request clarification before starting patient on the following medication memantine (NAMENDA) 10 mg tablet Si mg, ORAL, 2 TIMES DAILY. She reports he has physically started to decline and has been falling over more. Please review and advise. [phone] -IN documented in this encounter [facility] 05-04-2024 Telephone encounter Note He did not start Memantine did not start at all. He has fallen a number of times. She got him a walker. He has deteriorated a lot in the last couple days. He has fallen a number times. He hasn't been hurt. He is more confused. She wanted to know why the namenda bottle was different than the AVS instructions for starting the namenda. I explained it was necessary to do titration to lessen potential side effects. I will message Dr. Oliva to see if he wants to hold off on starting namenda until he is checked out. She was advised to take him to urgent/express care to make sure there is no underlying cause for his increase in confusion and recent frequent falls. Amalia Albarran, RENEE [facility] 05-04-2024 Telephone encounter Note 05/04/24 Patient's spouse Pedro reached the office to request clarification before starting patient on the following medication memantine (NAMENDA) 10 mg tablet Si mg, ORAL, 2 TIMES DAILY. She reports he has physically started to decline and has been falling over more. Please review and advise. [phone] -IN [facility] 04-30-2024 Preet Kingston DO - 04/30/2024 12:34 PM EDT Thank you [...] more information. Follow up 6 months with [facility] If you need to reschedule this please call [phone]. If you need to reach our office for any reason prior to your next visit, please contact us through [employer] or call [phone]. Ways to keep your brain healthy: Follow [...] fish and fish high in mercury (swordfish, [place] sea flood, orange roughy, ahi tuna, albacore [...] resources are: The Alzheimer's Association (web site: alz.org/[place]dwell) available 24 hours a day, 7 days per week. Contact: Local: ; Toll free: [phone] [facility] [place] (web site: Caregiver.org) [employer] [place]-- a secure online solution for quality information, support, and resources for family caregivers. Contact: Toll-free number: [phone] Alzheimers.gov - Find Alzheimer disease and related dementias information, resources, research and more. documented in this encounter [facility] 04-30-2024 Note HNO ID: [id number] Author: PREET OLIVA DO Service: ? Author Type: Physician Type: [...] September. He got really confused at a [place]. He had no idea where they were. Another time at a graduation [place] he thought they already went there. Has [...] as well. 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 Education level: few semesters at [employer] Alcohol: He says he drinks 2 beers per day and is concerned he drinks much more than this. Goes through about 24 beers per week. Tobacco: Former smoker many year (more content not included)... [facility] 04-30-2024 History of Presen t illness Narrative Images from the original note [...] September. He got really confused at a [facility] [employer] [facility] [place]. He had no idea where they were. Another time at a graduation [place] he thought they already went there. Has [...] as well. 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 Education level: few semesters at [employer] Alcohol: He says he drinks 2 beers [...] (FLONASE) 50 mcg/actuation nasal spray Use 1 [place] in the nose once daily. loratadine-pseudoephedrine ER [...] (?) dementia Heart Father age 70 of [place], first [place] age 65 Lipids Brother Alive age 52 [...] are intact. Neurological Exam Brief Neuropsychiatric Evaluation: [place] Cognitive Assessment (MoCA) Total Score: / Visuospatial/Executive: [...] more information. Follow up 6 months with Margarita Nuñez spent a total of 49 minutes on the date of service which included preparing to see the patient, [id number] patient care, performing a medically appropriate examination, completing clinical documentation, and on counseling/ eductaing the patient and the family. Preet Oliva DO documented in this encounter [facility] 04-30-2024 Nurse Note Derrick Monae is a [...] 72.6 kg (160 lb) BMI 25.82 kg/m [facility] 04-30-2024 Nurse Note Derrick Monae is a [...] BMI 25.82 kg/m documented in this encounter [facility] 02-15-2024 History of Presen t illness Narrative Radiology Service Progress Note PATIENT [...] PATIENT PRESENTS WITH AN IMPLANTABLE OR ATTACHED CONE SEWER: No RADIOLOGY DEPARTMENT: MR; Exam(s) Completed: Head: dementia brain wo PERIPHERAL IV DATA: Not applicable SIGNED BY: KEYONNA Perez) February 15, 2024 11:55 AM documented in this encounter [facility] 02-15-2024 Note HNO ID: [id number] Author: HANK SANTANA RT (R) Service: Radiology Author Type: Technologist Type: Progress [...] PATIENT PRESENTS WITH AN IMPLANTABLE OR ATTACHED CONE SEWER: No RADIOLOGY DEPARTMENT: MR; Exam(s) Completed: Head: dementia brain wo PERIPHERAL IV DATA: Not applicable SIGNED BY: Hank Santana RT(R) February 15, 2024 11:55 AM [facility] 01-23-2024 Instructions Preet Oliva DO - 01/23/2024 11:39 AM EDT Our team had the pleasure of seeing you today at [facility]. We reviewed your evaluation of memory, mood [...] patients have this done either in at [facility] or [place] at the [facility]. To schedule at either location call: . Medications: Start donepezil 5 mg daily (1/2 tab) for one month then increase to 10 mg daily after that. We would like you to return to [facility] for a follow up visit roughly 3 months or after MRI brain scan. Sincerely, documented in this encounter [facility] 01-23-2024 Note HNO ID: [id number] Author: PREET OLIVA DO Service: ? Author Type: Physician Type: Progress Notes Filed: 01/23/2024 13:22 Note Text: Reason for Referral: Cognitive changes and Memory loss I had the pleasure of seeing this 88 year old year old male at the [facility]. The patient is referred by SELF [...] September. He got really confused at a [employer]. He had no idea where they were. Another time at a [place] he thought they already went there. Has [...] as well. 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 Education level: few semesters at [employer] Alcohol: He says he drinks 2 beers [...] Med (more content not included)... [facility] 01-23-2024 History of Presen t illness Narrative Images from the original note [...] September. He got really confused at a [employer]. He had no idea where they were. Another time at a graduation [place] he thought they already went there. Has [...] as well. 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 Education level: few semesters at [employer] Alcohol: He says he drinks 2 beers [...] (FLONASE) 50 mcg/actuation nasal spray Use 1 [place] in the nose once daily. loratadine-pseudoephedrine ER [...] (?) dementia Heart Father age 70 of [place], first [place] age 65 Lipids Brother Alive age 52 [...] are intact. Neurological Exam Brief Neuropsychiatric Evaluation: [place] Cognitive Assessment (MoCA) Version 1 Total Score: 30 Visuospatial/Executive: 2/5 Namin/3 Attention: 4/6 Language: 0/3 Abstraction: 0/2 [...] and past events -fair Cranial Nerves Visual javire intact. Pupils reactive. Extraocular movements conjugate and [...] which included preparing to see the patient, eecz-ye-npyr patient care, performing a medically appropriate examination, completing clinical documentation, and on counseling/ eductaing the patient and the family. Preet Oliva DO documented in this encounter [facility] 01-23-2024 Nurse Note Derrick Monae is a 88 year old year old right handed man Accompanied by: spouse and son. 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 Patient is ALATNA he don't know why he here. His made the appointment she stated he is forgetful. Vital Signs: BP 158/70 Pulse (!) 55 Wt 72.6 kg (160 lb 1.6 oz) BMI 25.84 kg/m [facility] 01-23-2024 Nurse Note Derrick Monae is a 88 year old year old right handed man Accompanied by: spouse and son. 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 Patient is ALATNA he don't know why he here. His made the appointment she stated he is forgetful. Vital Signs: BP 158/70 Pulse (!) 55 Wt 72.6 kg (160 lb 1.6 oz) BMI 25.84 kg/m documented in this encounter [facility] Evaluation note Diagnosis Mild late onset Alzheimer's dementia without behavioral disturbance, psychotic disturbance, mood disturbance, or anxiety (HCC)- Primary [facility] Diagnosis Mild late onset Alzheimer's dementia without behavioral disturbance, psychotic disturbance, mood disturbance, or anxiety (HCC) [facility] Diagnosis Mild late onset Alzheimer's dementia without behavioral disturbance, psychotic disturbance, mood disturbance, or anxiety (HCC)- Primary [facility] Diagnosis Moderate persistent asthma without complication (CMS/HCC)- Primary Gastroesophageal reflux disease without esophagitis Esophageal reflux Seasonal allergies Allergic rhinitis, cause unspecified Encounter for Medicare annual wellness exam Primary hypertension (CMS/HCC) Unspecified essential hypertension Coronary artery disease involving [place] coronary artery of [place] heart without angina pectoris (CMS/HCC)- Primary Moderate persistent asthma without complication (CMS/HCC) Primary hypertension (CMS/HCC) Unspecified essential hypertension Frequent falls- Primary documented in this encounter [facility]* Diagnosis Moderate persistent asthma without complication (CMS/HCC)- Primary Gastroesophageal reflux disease without esophagitis Esophageal reflux Seasonal allergies Allergic rhinitis, cause unspecified Encounter for Medicare annual wellness exam Primary hypertension (CMS/HCC) Unspecified essential hypertension Coronary artery disease involving [place] coronary artery of [place] heart without angina pectoris (CMS/HCC)- Primary Moderate persistent asthma without complication (CMS/HCC) Primary hypertension (CMS/HCC) Unspecified essential hypertension Frequent falls- Primary Frequent falls- Primary Alzheimer's dementia with mood disturbance, unspecified dementia severity, unspecified timing of dementia onset ([facility]) [facility] encounter [facility]* Diagnosis Moderate persistent asthma without complication (CMS/HCC)- Primary Gastroesophageal reflux disease without esophagitis Esophageal reflux Seasonal allergies Allergic rhinitis, cause unspecified Encounter for Medicare annual wellness exam Primary hypertension (CMS/HCC) Unspecified essential hypertension Coronary artery disease involving [place] coronary artery of [place] heart without angina pectoris (CMS/HCC)- Primary Moderate persistent asthma without complication (CMS/HCC) Primary hypertension (CMS/HCC) Unspecified essential hypertension Frequent falls- Primary Medicare annual wellness visit, subsequent- Primary [facility] in [facility] encounter [facility]* Diagnosis Moderate persistent asthma without complication (CMS/HCC)- Primary Gastroesophageal reflux disease without esophagitis Esophageal reflux Seasonal allergies Allergic rhinitis, cause unspecified Encounter for Medicare annual wellness exam Primary hypertension (CMS/HCC) Unspecified essential hypertension Coronary artery disease involving [place] coronary artery of [place] heart without angina pectoris (CMS/HCC)- Primary Moderate persistent asthma without complication (CMS/HCC) Primary hypertension ([facility]/HCC) Unspecified essential hypertension Frequent falls- Primary Upper respiratory infection with cough and congestion- Primary [facility] encounter [facility]* Diagnosis Moderate persistent asthma without complication (CMS/HCC)- Primary Gastroesophageal reflux disease without esophagitis Esophageal reflux Seasonal allergies Allergic rhinitis, cause unspecified Encounter for Medicare annual wellness exam Primary hypertension (CMS/HCC) Unspecified essential hypertension Coronary artery disease involving [place] coronary artery of [place] heart without angina pectoris (CMS/HCC)- Primary Moderate persistent asthma without complication (CMS/HCC) Primary hypertension (CMS/HCC) Unspecified essential hypertension Frequent falls- Primary Primary hypertension (CMS/HCC)- Primary Unspecified essential hypertension Moderate persistent asthma without complication (CMS/HCC) Alzheimer's dementia with mood disturbance, unspecified dementia severity, unspecified timing of dementia onset ([facility]) Coronary artery disease involving [place] coronary artery of [place] heart without angina pectoris ([facility]/HCC) documented [facility] encounter [facility]* Diagnosis Alzheimer's disease (HCC)- Primary Alzheimer's disease [facility] Diagnosis Moderate persistent asthma without complication (CMS/HCC)- Primary Gastroesophageal reflux disease without esophagitis Esophageal reflux Seasonal allergies Allergic rhinitis, cause unspecified Encounter for Medicare annual wellness exam Primary hypertension (CMS/HCC) Unspecified essential hypertension Coronary artery disease involving [place] coronary artery of [place] heart without angina pectoris (CMS/HCC)- Primary Moderate persistent asthma without complication (CMS/HCC) Primary hypertension (CMS/HCC) Unspecified essential hypertension Frequent falls- Primary Primary hypertension (CMS/HCC)- Primary Unspecified essential hypertension Moderate persistent asthma without complication (CMS/HCC) Alzheimer's dementia with mood disturbance, unspecified dementia severity, unspecified timing of dementia onset (CMS/HCC) Coronary artery disease involving [place] coronary artery of [place] heart without angina pectoris (CMS/HCC) Primary hypertension (CMS/HCC)- Primary Unspecified essential hypertension Moderate persistent asthma without complication (CMS/HCC) Alzheimer's dementia with mood disturbance, unspecified dementia severity, unspecified timing of dementia onset (CMS/HCC) Coronary artery disease involving [place] coronary artery of [place] heart without angina pectoris (CMS/HCC) documented in this encounter [facility]* Diagnosis Alzheimer's disease (HCC)- Primary Alzheimer's disease Probable Alzheimer's disease - LATE ONSET (> 65 years) [331.0AS] Alzheimer's disease documented in this encounter [facility] Summary Purpose Family History No Family History Records FoundNo Family History Records FoundNo Family History Records FoundNo Family History Records FoundNo Family History Records Found Advance Directives No Advanced Directives Records FoundNo Advanced Directives Records FoundNo Advanced Directives Records FoundNo Advanced Directives Records FoundNo Advanced Directives Records Found Reason for Referral Specialty Diagnoses / Procedures Referred By Nakul woo Referred To Contact MR IMAGING Diagnoses Mild late onset Alzheimer's dementia without behavioral disturbance, psychotic disturbance, mood disturbance, or anxiety (HCC) Procedures MRI 3D POST PROCESSING 3D RENDERING W/INTERP&POSTPROC DIFF WORK STATION Preet Oliva DO [address] [address] [place] [id number] Referral ID Status Reason Start Date Expiration Date Visits Requested Visits Authorized [id number] Pending Review Auto-Generat ed Referral 01/23/2024 02/21/2025 1 1 Specialty Diagnoses / Procedures Referred By Contcodie t Referred To Contact MR IMAGING Diagnoses Mild late onset Alzheimer's dementia without behavioral disturbance, psychotic disturbance, mood disturbance, or anxiety (HCC) Procedures MRI BRAIN W QUANT WO IVCON MRI BRAIN BRAIN STEM W/O CONTRAST MATERIAL Preet Oliva DO [address] [address] [place] [id number] Referral ID Status Reason Start Date Expiration Date Visits Requested Visits Authorized [id number] Authorized Auto-Generat ed Referral 01/23/2024 02/21/2025 1 1 Referral ID Status Reason Start Date Expiration Date V isits Requested Visits Authorized [id number] Closed Auto-Generate d Referral 01/30/2024 07/13/2024 1 1 Referral ID Status Reason Start Date Expiration Date V isits Requested Visits Authorized [id number] Closed Auto-Generate d Referral 01/23/2024 02/21/2025 1 1 Additional Source Comments (unrecognized sect ion and content) No Status Records FoundNo Status Records FoundNo Status Records FoundNo Status Records FoundNo Status Records Found INFORMATION SOURCE (unrecogn ized section and content) DATE CREATED AUTHOR 10/02/2021 [facility] DATE CREATED AUTHOR AUTHOR'S ORGANIZ ATION 12/17/2024 [facility] DATE CREATED AUTHOR AUTHOR'S ORGANIZ ATION 01/06/2025 [facility] DATE CREATED AUTHOR AUTHOR'S ORGANIZ ATION 02/12/2025 [facility] DATE CREATED AUTHOR AUTHOR'S ORGANIZ ATION 02/14/2025 [facility] Source Comments (unrecognize d section and content) In the event this informatio n is protected by the Federal Confidentiality of Alcohol and Drug Abuse Patient Records regulations: The Federal rules restrict any use of the information to criminally investigate or prosecute any alcohol or drug abuse patient.[facility] the event this information is protected by the Federal Confidentiality of Alcohol and Drug Abuse Patient Records regulations: The Federal rules restrict any use of the information to criminally investigate or prosecute any alcohol or drug abuse patient.[facility] the event this information is protected by the Federal Confidentiality of Alcohol and Drug Abuse Patient Records regulations: The Federal rules restrict any use of the information to criminally investigate or prosecute any alcohol or drug abuse patient.[facility] the event this information is protected by the Federal Confidentiality of Alcohol and Drug Abuse Patient Records regulations: The Federal rules restrict any use of the information to criminally investigate or prosecute any alcohol or drug abuse patient.[facility] the event this information is protected by the Federal Confidentiality of Alcohol and Drug Abuse Patient Records regulations: The Federal rules restrict any use of the information to criminally investigate or prosecute any alcohol or drug abuse patient.[facility] the event this information is protected by the Federal Confidentiality of Alcohol and Drug Abuse Patient Records regulations: The Federal rules restrict any use of the information to criminally investigate or prosecute any alcohol or drug abuse patient.[facility] the event this information is protected by the Federal Confidentiality of Alcohol and Drug Abuse Patient Records regulations: The Federal rules restrict any use of the information to criminally investigate or prosecute any alcohol or drug abuse patient.[facility] the event this information is protected by the Federal Confidentiality of Alcohol and Drug Abuse Patient Records regulations: The Federal rules restrict any use of the information to criminally investigate or prosecute any alcohol or drug abuse patient.[facility] Reason for Visit (unrecogniz ed section and content) Reason Comments New Patient Reason Comments Radiology MRI Specialty Diagnoses / Procedures Referred By Nakul t Referred To Contact MR IMAGING Diagnoses Mild late onset Alzheimer's dementia without behavioral disturbance, psychotic disturbance, mood disturbance, or anxiety (HCC) Procedures MRI 3D POST PROCESSING 3D RENDERING W/INTERP&POSTPROC DIFF WORK STATION Preet Oliva DO [address] [place] [address] [place] [id number] Referral ID Status Reason Start Date Expiration Date V isits Requested Visits Authorized [id number] Closed Auto-Generate d Referral 01/30/2024 07/13/2024 1 1 Reason Comments Established Patient Follow-Up OFFICE VIS IT Reason Comments Hospital Follow-up Reason Comments Patient Question Reason Onset Date Comments PT for Alzheimer dementia / freq falls 4 Reason Onset Date Comments re: Missed PT Eval 06/22/2024 fu 06/25/2024 4x's w/ unable t o contact. Reason Comments Cough SOB, chest congestio n x 4 days Reason Comments Anxiety Gets loud, and angry Depression Reason Comments Follow Up Reason Comments Follow-up 3m Reason Comments Follow Up virtual Reason Comments Appointment Left voicemail sammy jay scheduling follow up with Margarita in 3 months (Mar 2025), and new consult with Virginia Camacho, the [facility] social media designer, scheduling number included for call back. Care Teams (unrecognized sec tion and content) Sports Trainer Relationship Specialty Start Date End Date Shaikh Franklin MD [address] [place] [address] PCP - Johan VASQUEZ 07/14/23 Dion Frazier MD [address] [place] [address] PCP - General Family Medicine 04/07/24 Ashley Elizondo NP [address] [place] [address] Nurse Practitioner Family Medicine 04/07/24 Sports Trainer Relationship Specialty Start Date End Date Shaikh Franklin MD [address] [place] [address] PCP - Johan VASQUEZ 07/14/23 Dion Frazier MD [address] [place] [address] PCP - General Family Medicine 04/07/24 Ashley Elizondo NP [address] [place] [address] Nurse Practitioner Family Medicine 04/07/24 Sports Trainer Relationship Specialty Start Date End Date Shaikh Franklin MD [address] [place] [phone] PCP - Johan VASQUEZ 07/14/23 Dion Frazier MD [address] [place] [phone] PCP - General Family Medicine 04/07/24 Ashley Elizondo NP [address] [place] [address] Nurse Practitioner Family Medicine 04/07/24 Javid Marie MA Family Medicine 06/04/24 Sports Trainer Relationship Specialty Start Date End Date Shaikh Franklin MD [address] [place] [phone] PCP - Johan VASQUEZ 07/14/23 Dion Frazier MD [address] [place] [phone] PCP - General Family Medicine 04/07/24 Ashley Elizondo NP [address] [place] [address] Nurse Practitioner Family Medicine 04/07/24 Javid Marie MA [facility] 06/04/24 Sports Trainer Relationship Specialty Start Date End Date Shaikh Franklin MD [address] [place] [address] PCP - Johan MS 07/14/23 Dion Frazier MD [address] [place] [phone] PCP - General Family Medicine 04/07/24 Ashley Elizondo NP [address] [place] [address] Nurse Practitioner Family Medicine 04/07/24 Javid Marie MA [facility] Medicine 06/04/24 Sports Trainer Relationship Specialty Start Date End Date Shaikh Franklin MD [address] [place] [phone] PCP - Johan MS 07/14/23 Dion Frazier MD [address] [place] [phone] PCP - General Family Medicine 04/07/24 Ashley Elizondo NP [address] [place] [address] Nurse Practitioner Family Medicine 04/07/24 Javid Marie MA [facility] 06/04/24 Sports Trainer Relationship Specialty Start Date End Date Shaikh Franklin MD [address] [place] [address] PCP - Johan MS 07/14/23 Dion Frazier MD [address] [place] [address] PCP - General Family Medicine 04/07/24 Ashley Elizondo NP [address] [place] [address] Nurse Practitioner Family Medicine 04/07/24 Javid Marie MA Family Medicine 06/04/24 Sports Trainer Relationship Specialty Start Date End Date Shaikh Franklin MD [address] [place] [address] PCP - Johan MS 07/14/23 Dion Frazier MD [address] [place] [address] PCP - General Family Medicine 04/07/24 Ashley Elizondo, SHANELL [address] [place] [address] Nurse Practitioner Family Medicine 04/07/24 Javid Marie MA Family Medicine 06/04/24 Sports Trainer Relationship Specialty Start Date End Date Shaikh Franklin MD [address] [place] [address] PCP - Johan MS 07/14/23 Dion Frazier MD [address] [place] [address] PCP - General Family Medicine 04/07/24 Javid Marie MA [facility] 06/04/24 Sports Trainer Relationship Specialty Start Date End Date Shaikh Franklin MD [address] [place] [address] PCP - Johan MS 07/14/23 Dion Frazier MD [address] [place] [address] PCP - General Family Medicine 04/07/24 Javid Marie MA [facility] 06/04/24 Sports Trainer Relationship Specialty Start Date End Date Shaikh Franklin MD [address] [place] [address] PCP - Johan MS 07/14/23 Dion Frazier MD [address] [place] [address] PCP - General Family Medicine 04/07/24 Javid Marie [facility] 06/04/24 FOR RECORDS PERTAINING TO PATIENTS WHO ARE [...] BE BASED ON THE PRIMARY CLINICAL RECORDS. [facility]. provides no warranty or guarantee of the accuracy or completeness of information in this document.
--- OUTSIDE RECORDS SUMMARY | 2025-02-23 21:01 | XMS_ITS | Clinical Summary ---
Author Organization [facility] Address [address] [place] [address] Care Team Providers Care Life Care Planner Name Role Phone Shaikh YASMANI Franklin Unavailable [phone] Dion Donovan MD Primary Care Provider [phone] Javid Marie MA Unavailable [phone] Allergies Active Allergy Reactions Criticality Noted Date Comments Amoxicillin-Pot Clavulanate Unknown 06/30/20 23 Egg Shells 10/28/2016 Egg-Derived Products Swelling 05/17/2003 Pineapple Other 04/16/2011 Other reaction(s): Other: See Comments Tickle in back of throat Tickle in back of throat Sulfa Antibiotics Other 05/17/2003 hives + SOB Sulfanilamide 06/30/2023 Medications Fluticasone Furoate-Vilanter ol (Breo Ellipta) 100-25 MCG/ACT aerosol powder Inhale 1 Dose 1 (one) time each day Active albuterol HFA 90 mcg/act inhaler Inhale 2 puffs every 4 (four) hours if needed for wheezing Active mometasone (Nasonex) 50 MCG/ACT nasal spray Administer 2 sprays into each nostril in the morning. Active esomeprazole (NexIUM) [address] capsule Take 20 mg by mouth in the morning. Take before meals. Do not open capsule.. Active loratadine-pseud oephedrine ER (Claritin-D 24-hour) 10-240 MG 24 hr tablet Take 1 tablet by mouth in the morning. Do not crush, chew, or split.. Active donepezil (Aricept) 10 MG tablet Take 10 mg by mouth at bedtime 4 Active memantine (Namenda) 10 MG tablet Take 10 mg by mouth in the morning and 10 mg in the evening. 4 04/30/20 25 Active QUEtiapine (SEROquel) 25 MG tabletIndication s:Alzheimer's dementia with mood disturbance, unspecified dementia severity, unspecified timing of dementia onset (HCC) Take 1 tablet (25 mg) by mouth at bedtime 30 tablet 5 5 Active benzonatate (Tessalon) 100 MG capsuleIndicatio ns:Cough, unspecified type Take 1 capsule (100 mg) by mouth 3 (three) times a day as needed for cough 30 capsule 1 5 Active isosorbide mononitrate ER (Imdur) 30 MG 24 hr tablet 1 (one) time each day at the same time Active Active Problems Problem Noted Date Diagnosed Date Alzheimer's dementia 06/01/2024 Assessment & Plan (12/16/2024 1:55 PM EDT): Symptoms stable and continue medication. Follow with neurology. Assessment & Plan (09/14/2024 3:35 PM EST): Worsening behavior problems and add seroquel. Continue medication and follow with neurology. Assessment & Plan (06/01/2024 9:46 AM EST): Follows closely with Neurology Dr. Oliva @ [facility] Diagnosed with mild late onset Alzheimer's dementia; reports pt is aggressive and combative; Does not follow instructions well. Son has moved in with them to help care for him. Pt is no longer driving. would like formal diagnosis that patient is unsafe to drive. Will defer to [facility]. Frequent falls 05/27/2024 Assessment & Plan (06/01/2024 9:47 AM EST): Was seen at [facility] on 05/04 for frequent falls. Was negative for UTI. Has MRI of brain done in 02/2024 Neurology started Donepezil, had initially ordered Namenda as well but decided to hold off due to falls. 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 06/30/2023 Medicare annual wellness visit, subsequent 06/30 Assessment & Plan (06/30/2023 2:08 PM EST): Patient here for medicare wellness. No complaints to offer. Tolerating medications w/o adverse effects Asthma is well controlled. Feels good and doing well overall. Recommended to get Influenza vaccine. Too old for Colon cancer screening. F/ Primary hypertension 06/30/2023 Assessment & Plan (12/16/2024 1:55 PM EDT): BP controlled and monitor PRN. Assessment & Plan (09/14/2024 3:37 PM EST): BP controlled and monitor PRN. Assessment & Plan (12/30/2023 11:26 AM EDT): Well controlled w/o medications. Monitor. Assessment & Plan (06/30/2023 2:06 PM EST): Well controlled w/o medications. Monitor. Moderate persistent asthma 05/07/2018 Assessment & Plan (12/16/2024 1:55 PM EDT): Breathing stable and follow with pulmonology. Assessment & Plan (09/14/2024 3:36 PM EST): Breathing stable and follow with pulmonology. Assessment & Plan (12/30/2023 11:25 AM EDT): Well controlled. On Breo-Ellipta. Follows Dr Méndez No recent exacerbations. Assessment & Plan (06/30/2023 2:04 PM EST): Well controlled. On Breo-Ellipta. Follows Dr Méndez Seasonal allergies 05/07/2018 Assessment & Plan (06/30/2023 2:04 PM EST): On Loratidine/pseudoefridine. C/w same. CAD (coronary artery disease) 06/21/2014 Assessment & Plan (12/16/2024 1:55 PM EDT): No symptoms and monitor. Assessment & Plan (09/14/2024 3:36 PM EST): No symptoms and monitor. Assessment & Plan (12/30/2023 11:26 AM EDT): Non obs CAD on [facility]. Asymptomatic. Uses low dose aspirin. Not interested in using statin Gastroesophageal reflux disease without esophagi tis 04/16/2011 Assessment & Plan (06/30/2023 2:04 PM EST): On Nexium for it. Controlled. Resolved Problems Problem Noted Date Diagnosed Date Resolved Date Upper respiratory infection with cough and congestion 08/05/2024 09/14/2024 Assessment & Plan (08/05/2024 3:37 PM EST): Pt experiencing dyspnea and increased work of breathing while sitting in the office at rest, elevated HR of 107. Although his SPO2 is 94% on room air, I am concerned for patient having such increased work of breathing. At this time advised pt and to report to emergency room for further eval and treatment. Encounters Date Type Department Care Team Description 02/21/2025 Patient Outreach [facility] [address] [place] [address] Afia Arriaga LPN 02/15/2025 Patient Outreach [facility] [address] [place] [address] Afia Arriaga LPN 12/16/2024 1:15 PM EDT Office Visit [facility] [address] [place] [address] Dion Donovan MD Primary hypertension (Primary Dx); Moderate persistent asthma without complication (HCC); Alzheimer's dementia with mood disturbance, unspecified dementia severity, unspecified timing of dementia onset (HCC); Coronary artery disease involving [place] coronary artery of [place] heart without angina pectoris 12/16/2024 Bamboo flowsheet [facility] [address] [place] [phone] Dion Donovan MD 12/02/2024 Patient Outreach [facility] [address] [place] [address] Javid Marie MA from Last 3 Months Immunizations Immunization Administration Dates Next Due Influenza, injectable, MDCK, preservative free, quadrivalent 07/30/2021 Influenza, recombinant, quad rivalent, injectable, preservative free 03/22/2022,05/09/2020 Pneumococcal Conjugate PCV 13 04/24/2017 Pneumococcal Polysaccharide PPSV23 07/14/2007 Family History Medical History Relation Name Comments Heart disease Father Hypertension Father Relation Name Status Comments Father Mother Social History Tobacco Use Types Packs/Day Years Used Date Smoking Tobacco: Never Passive Smoke Exposure: Never Smokeless Tobacco: Never Tobacco Cessation:Counseling Given: Not Answered Alcohol Use Standard Drinks/Week Comments Yes 14 [...] week 06/14/2024 How often do you attend anabaptism or jehovah's witness serv ices? Never 06/14/2024 Do you belong to any clubs o r organizations such as anabaptism groups, unions, fraternal or athletic groups, or [...] Recorded Patient Health Questionnaire-2 Score 0 07/19/2024 [facility] - Occupational Stress Questionnaire Answer Date Recorded [...] any time in the past 12 m [facility], were you homeless or living in a halfway (including now)? No 06/14/2024 Sex and Gender Information Value Date Recorded Sex Assigned at Not on file Legal Sex Male 8:35 PM EDT Gender Identity Not on file Sexual Orientation Not on file Last Filed Vital Signs Vital Sign Reading Time Taken Comments Blood Pressure 130/64 12/16/2024 1:27 PM EDT Pulse 87 12/16/2024 1:27 PM EDT Temperature 36.2 C (97.1 F) 12/16/2024 1:27 PM EDT Respiratory Rate 20 12/16/2024 1:27 PM EDT Oxygen Saturation 98% 12/16/2024 1:27 PM EDT Inhaled Oxygen Concentration - - Weight 68 kg (150 lb) 12/16/2024 1:27 PM EDT Height 167.6 cm (5' 6 ) 12/16/2024 1:27 PM EDT Body Mass Index 24.21 12/16/2024 1:27 PM EDT Plan of Treatment Upcoming Encounters Date Type Department Care Team (Late st Contact Info) Description 06/20/2025 1:30 PM EST Office Visit [facility] [address] [place] [address] Dion Donovan MD [address] [place] [address] Health Maintenance Due Date Last Done Comments Medicare Annual Wellness (AWV) 07/19/2025 07/19/2024 , 06/30/2023 Pneumococcal Vaccine: 65+ Years Completed 7, 07/14/2007 Influenza Vaccine Discontinued 06/24/2024, , 07/30/2021, Additional history exists Insurance [facility] Care Teams Life Care Planner Relationship Specialty Start Date End Date Shaikh Franklin MD [address] [place] [address] PCP - Johan VASQUEZ 07/14/23 Dion Donovan MD [address] [place] [address] PCP - General Family Medicine 04/07/24 Javid Marie MA [address] [place] [address] Family Medicine 06/04/24
--- OUTSIDE RECORDS SUMMARY | 2025-02-23 21:01 | XMS_ITS | Encounter Summary ---
Author Organization [facility] Address [address] [place] [address] Care Team Providers Care Manager Of Marketing Name Role Phone Shaikh YASMANI Franklin Unavailable [phone] Dion Donovan MD Primary Care Provider [phone] Javid Marie MA Unavailable [phone] Encounter Details Date Type Department Care Team (Late st Contact Info) Description 02/21/2025 Patient Outreach [facility] [address] [place] [address] Afia Arriaga LPN Social History [...] week 06/14/2024 How often do you attend mandaeism or congregation serv ices? Never 06/14/2024 Do you belong to any clubs o r organizations such as mandaeism groups, unions, fraternal or athletic groups, or [...] Recorded Patient Health Questionnaire-2 Score 0 07/19/2024 [facility] [place] [facility] - Occupational Stress Questionnaire Answer Date Recorded [...] any time in the past 12 m [facility], were you homeless or living in a correction (including now)? No 06/14/2024 Sex and Gender Information Value Date Recorded Sex Assigned at Not on file Legal Sex Male 8:35 PM EDT Gender Identity Not on file Sexual Orientation Not on file documented as of this encounter Progress Notes * Afia Arriaga LPN - 02/21/2025 2:57 PM EDT <February 21, 2025, 14:57 - Afia Arriaga LPN> Called Ander at [facility] and spoke with the physical therapist and she states that he is confusedand he needs a lot of cueing to stay on track with tasks. He can walk 120 ft with walker but needs help and reminded to turn walker so he does not run into anything. His balance is fair when he has the walker without it is very poor. He does participate in therapy well. No dc date. documented in this encounter Plan of Treatment Upcoming Encounters Date Type Department Care Team (Late st Contact Info) Description 06/20/2025 1:30 PM EST Office Visit [facility] [address] [place] [address] Dion Donovan MD [address] [place] [phone] documented as of this encounter Visit Diagnoses Not on filedocumented in this encounter Additional Health Concerns Assessment Noted Time PHQ-9 Depression Total Score: 6 07/19/19 25 1:00 PM EST A fall risk assessment has been complete d for the patient 06/14/2024 1:51 PM EST documented as of this encounter Care Teams Manager Of Marketing Relationship Specialty Start Date End Date Shaikh Franklin MD [address] [place] [address] PCP - Johan VASQUEZ 07/14/23 Dion Donovan MD [address] [place] [address] PCP - General Family Medicine 04/07/24 Javid Marie MA [address] [place] [address] Family Medicine 06/04/24 documented as of this encounter
--- NOTE | 2025-02-23 21:16 | ED_ITS ---
HPI HPI - Extremity Injury (Lower) General Chief Complaint: Extremity Injury, Lower Stated Complaint: HIP PAIN Time Seen by Provider: 02/23/25 20:49 Source: patient Mode of arrival: ambulance Limitations: altered mental status and physical limitation History of Present Illness HPI Narrative: 89-year-old male with history of dementia presents to the ED for evaluation of possible hip fracture. History is limited; was initially unavailable but later at bedside. Per report, patient fell at home 4 days ago and was evaluated at [facility] ED, where imaging reportedly showed a ?crack? in the hip deemed non- operable. He was discharged to an inpatient rehab facility. This morning, while at the facility, he reportedly stood up from his wheelchair and fell again onto his left hip. Facility-ordered X-ray demonstrated an acute nondisplaced intertrochanteric fracture of the proximal left femur. [facility] xray reports are bin obtained for comparison. On arrival, patient appears at his baseline per and is not in acute distress. No head injury reported. He is not on anticoagulants. Related Data Home Medications ?Medication ?Instructions ?Recorded ?Confirmed aspirin 81 mg tablet,delayed 81 mg PO DAILY 03/02/23 0 02/23/25 release (Adult Aspirin Regimen) donepezil 10 mg tablet 10 mg PO BEDTIME 05/04/24 memantine 10 mg tablet 10 mg PO BID 05/04/24 benzonatate 100 mg capsule mg PO 02/23/25 sertraline 50 mg tablet mg 02/23/25 Previous Rx's ?Medication ?Instructions ?Recorded albuterol sulfate 90 mcg/actuation 2 inh inhalation Q4 H PRN shortness 03/02/23 aerosol inhaler of breath or wheezing #8.5 g naa Allergies Allergy/AdvReac Type Severity Reaction Status Date / Time Sulfa (Sulfonamide Allergy Mild Rash Verified 02/23/25 20:55 Antibiotics) eggs Allergy Mild Rash Uncoded 02/23/25 20:55 Opioid HPI Opioid Management Most Recent Pain and Opioid Data: Last Pain Scale 0 05/04/24, 17:46 Exam Narrative Exam Narrative: Patient alert, interactive, at cognitive baseline. No acute distress. Pupils equal, round, reactive to light; extraocular movements intact. No scalp or facial trauma. Cardiovascular: Regular rate and rhythm, no murmurs; pulses 2+ in all extremities. Lungs: Clear to auscultation bilaterally. Abdomen: Soft, non-tender, non-distended. Musculoskeletal: Left hip?significant tenderness to palpation; no deformity noted. Right hip?non-tender with normal movement. Right lower extremity?no tenderness at knee or ankle. Left knee and ankle non-tender. No spine tenderness. Neurologic: Moves all extremities spontaneously; no focal deficit note Constitutional Vital Signs, click to edit/add: Last Vital Signs Temp 98.0 F 02/23/25 20:55 Pulse 84 02/23/25 20:55 Resp 18 02/23/25 20:55 BP 127/76 02/23/25 20:55 Pulse Ox 99 02/23/25 20:55 O2 Del Method Room Air 02/23/25 20:55 Course Consultations Consultation #1: Dr. Lan [facility] orthoped[facility] will consullt Time: 22:00 Vital Signs Vital signs: Vital Signs Temperature 98.0 F 02/23/25 20:55 Pulse Rate 84 02/23/25 20:55 Respiratory Rate 18 02/23/25 20:55 Blood Pressure 127/76 02/23/25 20:55 Pulse Oximetry 99 02/23/25 20:55 Oxygen Delivery Method Room Air 02/23/25 20:55 Temperature 98.0 F 02/23/25 20:55 Pulse Rate 84 02/23/25 20:55 Respiratory Rate 18 02/23/25 20:55 Blood Pressure 127/76 02/23/25 20:55 Pulse Oximetry 99 02/23/25 20:55 Oxygen Delivery Method Room Air 02/23/25 20:55 MDM - Extremity Injury (Lower) MDM Narrative Medical decision making narrative: Patient presents with acute nondisplaced intertrochanteric fracture of the proximal left femur, confirmed on imaging from the nursing facility. Given the nature of the fracture and patient?s age and comorbidities, orthopedic consultation was obtained with Dr. Smith at [facility]. He agrees the patient will require transfer to [facility] for further evaluation and management, with admission under the hospitalist service. Family was informed of the diagnosis, treatment options, and transfer plan; they expressed understanding and agreement. Pain control maintained, patient remains hemodynamically stable, and fall precautions continued pending transfer accepting Dr. Mai. Transfer pending transport. Medical Records Attestation: I reviewed the patient's medical records. Lab Data Attestation: I reviewed the patient's lab results. Discharge Plan Discharge Chief Complaint: Extremity Injury, Lower Clinical Impression: Closed intertrochanteric fracture of left hip, Multiple falls Patient Disposition: [facility] Time of Disposition Decision: 22:03 Discharge Location: [facility] Discharge location: [facility] Discharge Date/Time: 02/23/25 23:34
[2025-02-23 21:35] LABS: Hematocrit 37.3 % (42.0-54.0); Hemoglobin 12.5 g/dL (14.0-18.0); Immature Granulocytes Abs Auto 0.02 10^3/uL (0.00-0.03); Immature Granulocytes Pct Auto 0.3 % (0.0-0.5); Lymphocytes Absolute Auto 1.0 10^3/uL (1.2-3.8); Mean Corpuscular HGB Conc 33.5 g/dL (29.9-35.2); Mean Corpuscular Hemoglobin 31.8 pg (25.9-34.0); Mean Corpuscular Volume 94.9 fL (80.0-94.0); Platelet Count 336 10^3/uL (150-450); Red Blood Count 3.93 10^6/uL (4.70-6.10); White Blood Count 7.5 10^3/uL (4.0-11.0)
[2025-02-23 21:48] LABS: INR 1.04; Prothrombin Time 11.0 sec (9.0-11.6)
[2025-02-23 21:50] LABS: Alanine Aminotransferase 25 U/L (16-63); Albumin Globulin Ratio 0.9; Albumin Level 3.0 g/dL (3.4-5.0); Alkaline Phosphatase 171 U/L (46-116); Anion Gap 9.7; Aspartate Amino Transferase 16 U/L (15-37); Blood Urea Nitrogen 19.0 mg/dL (7.0-18.0); Calcium 8.9 mg/dL (8.5-10.1); Carbon Dioxide 28.1 mmol/L (21.0-32.0); Chloride 108 mmol/L (98-107); Estimated GFR (African America >60 (>=60 mL/min/1.73m^2); Estimated GFR (Non-African Ame >60 (>=60 mL/min/1.73m^2); Globulin 3.4 g/dL; Glucose 106 mg/dL (74-106); Potassium 3.8 mmol/L (3.5-5.1); Sodium 142 mmol/L (136-145); Total Protein 6.4 g/dL (6.4-8.2)
[2025-02-23 23:16] VITALS: BP 153/80; PULSE 70; O2SAT 96
--- NOTE | 2025-02-23 23:32 | PC.NURSE ---
report called to Angelique DURAN at [facility]
== END 2025-02-23 23:34 | disposition short-term general hospital (02) ==
PROVIDERS: Physician Assistant; Emergency Provider Internal Medicine
DX: S72.145A Nondisplaced intertrochanteric fracture of left femur, initial encounter for closed fracture (principal); R29.6 Repeated falls; W05.0XXA Fall from non-moving wheelchair, initial encounter; Z91.81 History of falling
CPT/HCPCS: 36415; 73522; 80053; 85025; 85610; 99285

== ENCOUNTER 2025-03-07 21:00 | Emergency (ER) | payer MEDICARE, SELFPAY ==
[2025-03-07 21:02] VITALS: BP 117/67; PULSE 74; TEMP 37.3; O2SAT 95; BMI 24.2
--- NOTE | 2025-03-07 21:07 | PC.NURSE ---
Bilateral pedal pulses palpable
--- NOTE | 2025-03-07 21:08 | XR_ITS ---
The [address] [address] Patient Name: DERRICK MONAE MRN: [id number] date: 1935 Sex: M Assigned Patient Location: ER Current Patient Location: ED.MAIN Accession/Order Number: [id number] Exam Date: 03/07/2025 21:33 Report Date: 03/07/2025 22:17 At the request of: MASON KIM DO Procedure: XR femur LT 2V XR femur LT 2V 03/07/2025 10:08 PM SIGNS AND SYMPTOMS: ^fall, left hip pain PROTOCOL: Frontal and lateral graphs of the left femur COMPARISON: 02/23/2025 FINDINGS: There is a mildly displaced fracture of the left greater trochanter which is unchanged. The remainder of the left femur is grossly intact. There is total left knee arthroplasty hardware without hardware complication. XR/XR femur LT 2V IMPRESSION: No acute displaced fracture. Unchanged mildly displaced fracture of the left greater trochanter. Impression dictated by: Yonny Zhu M.D. 03/07/2025 10:17 PM Dictation Location: [place] [address] Electronically authenticated by: [id number] Y Date: 03/07/2025 22:17
--- NOTE | 2025-03-07 21:08 | XR_ITS ---
The [address] [address] Patient Name: DERRICK MONAE MRN: [id number] date: 1935 Sex: M Assigned Patient Location: ER Current Patient Location: ED.[facility] Accession/Order Number: [id number] Exam Date: 03/07/2025 21:33 Report Date: 03/07/2025 22:16 At the request of: MASON KIM DO Procedure: XR hip LT 2V w/ pelvis XR hip LT 2V w/ pelvis 03/07/2025 10:08 PM SIGNS AND SYMPTOMS: Fall, left hip pain PROTOCOL: Frontal radiograph of the pelvis with frontal and frog-leg views of the left hip COMPARISON: 02/23/2025 FINDINGS: There is evidence of a remote fracture of the greater trochanter of the right hip without change in alignment. The bony ring of the pelvis is intact. Degenerative changes are noted in the sacroiliac joints. XR/XR hip LT 2V w/ pelvis IMPRESSION: No acute displaced fracture. There is redemonstration of a mildly displaced fracture of the left greater trochanter which is unchanged. Impression dictated by: Yonny Zhu M.D. 03/07/2025 10:16 PM Dictation Location: [place] [address] Electronically authenticated by: [id number] Y Date: 03/07/2025 22:16
--- NOTE | 2025-03-07 21:09 | ED_ITS ---
HPI HPI - Fall General Chief Complaint: Fall Stated Complaint: OTHER Time Seen by Provider: 03/07/25 21:08 Source: medical record and other Source comment: ems Mode of arrival: ambulance Limitations: altered mental status Limitations comment: dementia History of Present Illness HPI Narrative: The patient is an 89-year-old male presenting from the [facility] with dementia. The patient's presenting today after he had a fall. He is a gentleman known to have frequent falls. He was transferred to the [facility] February 11 after sustaining a nondisplaced femur fracture that was deemed nonsurgical. Tonight the patient fell at 20:15. He was found next to his bed. The patient fell from a standing position. Patient has no complaints other than he keeps reaching for his left hip. Staff at the [facility] states that his mentation is at baseline. 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 Related Data Home Medications ?Medication ?Instructions ?Recorded ?Confirmed aspirin 81 mg tablet,delayed 81 mg PO DAILY 03/02/23 0 02/23/25 release (Adult Aspirin Regimen) donepezil 10 mg tablet 10 mg PO BEDTIME 05/04/24 memantine 10 mg tablet 10 mg PO BID 05/04/24 benzonatate 100 mg capsule mg PO 02/23/25 sertraline 50 mg tablet mg 02/23/25 Previous Rx's ?Medication ?Instructions ?Recorded albuterol sulfate 90 mcg/actuation 2 inh inhalation Q4 H PRN shortness 03/02/23 aerosol inhaler of breath or wheezing #8.5 g naa Allergies Allergy/AdvReac Type Severity Reaction Status Date / Time Sulfa (Sulfonamide Allergy Mild Rash Verified 02/23/25 20:55 Antibiotics) amoxicillin (From Augmentin) Allergy Unknown Unknown Verified 03/07/25 21:06 clavulanic acid (From Allergy Unknown Unknown Verified 03/07/25 21:06 Augmentin) pineapple Allergy Unknown Unknown Verified 03/07/25 21:06 eggs Allergy Mild Rash Uncoded 02/23/25 20:55 Opioid HPI Opioid Management Most Recent Pain and Opioid Data: Last Pain Scale 3 Today, 21:04 Review of Systems ROS Narrative 10 Systems were reviewed, and unless not ed in the HPI, all other systems are reviewed, unremarkable, or noncontributory. Exam Narrative Exam Narrative: Prior to examining the patient, I have washed with hospital approved and provided Antiseptic Hand Clinical Nutritionist and have also applied gloves.? Prior to touching the patient, I asked for consent to examine the patient.? General: Alert and oriented to self only, well nourished, mild distress. Eye: PERRL, EOMI, normal conjunctiva. 4 mm and reactive HENT: Normocephalic, normal hearing, moist oral mucosa, no scleral icterus, Neck: Supple, non-tender, no carotid bruits, no JVD, no lymphadenopathy. Lungs: Clear to auscultation and percussion, non-labored respiration. No rhonchi, rales, wheezing Heart: Normal rate, regular rhythm, no murmur, gallop or edema. Abdomen: Soft, non-tender, non-distended, normal bowel sounds, no masses. Musculoskeletal: Normal range of motion and strength, patient is grimacing and has tenderness to the left hip as he keeps grabbing it. But his medial malleolus are at the same length. He is pulling his leg up by himself unaided on the left side. And we asked the patient where he hurts he actually points to his pubic bone on his left buttock. Skin: Skin is warm, dry and pink, no rashes or lesions. Well-healed surgical scar over the knee on the left side Neurologic: Awake, alert, and oriented X3, CN II-XII intact. Psychiatric: Cooperative, dementia but calm. Following the conclusion of the examination, I have washed my hands thoroughly after removing examination gloves. Constitutional Vital Signs, click to edit/add: Last Vital Signs Temp 99.1 F 03/07/25 21:02 Pulse 71 03/07/25 22:18 Resp 20 03/07/25 22:18 BP 126/59 03/07/25 22:18 Pulse Ox 92 L 03/07/25 22:18 O2 Del Method Room Air 03/07/25 22:18 Course Course Hospital Course: We were given report by EMS and from the [facility]. Patient at this time is going to get imaging of his head and neck due to a just potential distracting injury of the left hip. Further studies to follow. Reevaluation(s) Reevaluation #1: We informed the that she should go home because he is safe and she had a couple appointments tomorrow scheduled so we told her we would take care of him while we are waiting for the results to come back. Time: 22:15 Reevaluation #2: All imaging studies come back unremarkable. No evidence of intracranial hemorrhage. No evidence of neck fracture, dislocation or subluxation. There is presence of a greater trochanter fracture that is unchanged from the previous. And the patient has no evidence of acute fracture her pelvis is intact. Time: 22:32 Vital Signs Vital signs: Vital Signs Temperature 99.1 F 03/07/25 21:02 Pulse Rate 74 03/07/25 21:02 Respiratory Rate 18 03/07/25 21:02 Blood Pressure 117/67 03/07/25 21:02 Pulse Oximetry 95 03/07/25 21:02 Oxygen Delivery Method Room Air 03/07/25 21:02 Temperature 99.1 F 03/07/25 21:02 Pulse Rate 71 03/07/25 22:18 Respiratory Rate 20 03/07/25 22:18 Blood Pressure 126/59 03/07/25 22:18 Pulse Oximetry 92 L 03/07/25 22:18 Oxygen Delivery Method Room Air 03/07/25 22:18 MDM - Fall MDM Narrative Medical decision making narrative: In summary the patient is an 89-year-old gentleman who had an unwitnessed fall when he tried to get up today. He was found next to his bed. Patient was complaining of left hip pain. He has a recent history of a left greater trochanter fracture that was nonsurgical in nature. Patient is presenting today for repeat assessment of the left hip pain. Differential Diagnosis Differential diagnosis: Likely other (Left hip fracture, pelvis fracture, left hip dislocation) Medical Records Attestation: I reviewed the patient's medical records. Imaging Data CT scan - head: Attestation: I have reviewed the pertinent imaging results. Radiologist's impression: ITS Impressions Femur X-Ray 03/07/25 21:08 IMPRESSION: No acute displaced fracture. Unchanged mildly displaced fracture of the left greater trochanter. Impression dictated by: Yonny Zhu M.D. 03/07/2025 10:17 PM Dictation Location: [place] [address] Electronically authenticated by: [id number] Y Date: 03/07/2025 22:17 Hip/Pelvis X-Ray 03/07/25 21:08 IMPRESSION: No acute displaced fracture. There is redemonstration of a mildly displaced fracture of the left greater trochanter which is unchanged. Impression dictated by: Yonny Zhu M.D. 03/07/2025 10:16 PM Dictation Location: [facility] Electronically authenticated by: [id number] Y Date: 03/07/2025 22:[address] 03/07/25 21:11 IMPRESSION: No fracture or subluxation. Degenerative changes are noted as above. Impression dictated by: Yonny Zhu M.D. 03/07/2025 10:23 PM Dictation Location: [facility] Electronically authenticated by: [id number] Y Date: 03/07/2025 22:[address] 03/07/25 21:11 IMPRESSION: No acute intracranial pathology. 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 Chronic age-related neurodegenerative changes are redemonstrated. Impression dictated by: Yonny Zhu M.D. 03/07/2025 10:20 PM Dictation Location: [facility] [facility] Electronically authenticated by: [id number] Y Date: 03/07/2025 22:20 Discharge Plan Discharge Chief Complaint: Fall Clinical Impression: Fall, Acute pain of left hip Patient Disposition: Hospice - Medical Facility Time of Disposition Decision: 22:39 Discharge Location: [facility] Condition: Good Mode of Transportation: EMS Additional Instructions: There is no evidence of fracture to the hip or pelvis today. We do see his greater trochanter fracture from previous but it is unchanged from the last x- ray. CAT scan of the head and cervical spine were also negative. Please encourage him to use a walker or cane with ambulation. Thank you for trusting us with his care.
--- NOTE | 2025-03-07 21:11 | CT_ITS ---
[address] [address] Patient Name: DERRICK MONAE MRN: [id number] date: 1935 Sex: M Assigned Patient Location: ER Current Patient Location: [facility] Accession/Order Number: [id number] Exam Date: 03/07/2025 21:33 Report Date: 03/07/2025 22:23 At the request of: MASON KIM DO Procedure: CT cervical spine wo con CT cervical spine wo con 03/07/2025 10:08 PM SIGN AND SYMPTOMS: ^fall TECHNIQUE: Multi detector CT axial slices of the cervical spine were obtained without IV contrast. Volumetric acquisition sagittal, coronal, and 3-D reconstructions were performed and reviewed. CT was performed with one or more of the following dose reduction techniques: Automated exposure control, adjustment of the mA and/or kV according to patient size, or use of iterative reconstruction technique. COMPARISON: 05/04/2024. FINDINGS: There is preservation of the vertebral body heights. There is mild disc height loss at C4-C5 and C5-C6. There is severe disc height loss at C6-C7. There is facet hypertrophy throughout. Atherosclerotic changes are noted in the carotid bifurcations. No fractures or dislocations are seen. The alignment of the cervical spine is normal. The craniocervical junction is within normal limits. 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 The prevertebral soft tissues are within normal limits. The paraspinous soft tissues are within normal limits. The lung apices are unremarkable. CT/CT cervical spine wo con IMPRESSION: No fracture or subluxation. Degenerative changes are noted as above. Impression dictated by: Yonny Zhu M.D. 03/07/2025 10:23 PM Dictation Location: [place] [address] Electronically authenticated by: [id number] Y Date: 03/07/2025 22:23
--- NOTE | 2025-03-07 21:11 | CT_ITS ---
The [address] [address] Patient Name: DERRICK MONAE MRN: [id number] date: 1935 Sex: M Assigned Patient Location: ER Current Patient Location: .[facility] Accession/Order Number: [id number] Exam Date: 03/07/2025 21:33 Report Date: 03/07/2025 22:20 At the request of: MASON KIM DO Procedure: CT head/brain wo con CT head/brain wo con 03/07/2025 10:08 PM SIGNS AND SYMPTOMS: Fall TECHNIQUE:Multi-detector CT axial slices of the brain were obtained without IV contrast. CT was performed with one or more of the following dose reduction techniques: Automated exposure control, adjustment of the mA and/or kV according to patient size, or use of iterative reconstruction technique. COMPARISON: 05/04/2024 FINDINGS: There is no shift of the midline structures, acute intracranial bleeding, mass effects, or evidence of acute ischemia. There is age-related cortical atrophy. There is gliosis and encephalomalacia in the right frontal and parietal lobes consistent with a previous infarct. Atherosclerotic changes are noted in the intracranial segments of the internal carotid arteries. The ventricular system is normal in size. The brainstem and the cerebellum are unremarkable. The visualized intraorbital contents, the visualized paranasal sinuses, and the infratemporal soft tissues show no acute abnormality. The osseous structures in the skull base and the calvarium show no abnormality. CT/CT head/brain wo con IMPRESSION: No acute intracranial pathology. 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 Chronic age-related neurodegenerative changes are redemonstrated. Impression dictated by: Yonny Zhu M.D. 03/07/2025 10:20 PM Dictation Location: [place] [address] Electronically authenticated by: [id number] Y Date: 03/07/2025 22:20
--- OUTSIDE RECORDS SUMMARY | 2025-03-07 21:42 | XMS_ITS | CCD ---
Author Organization [facility] Care Team Providers Care Supervisor Border Department Name Role Phone SHAIKH FRANKLIN Consulting Unavailable SHAIKH FRANKLIN Attending Unavailable SAMANTHA FRANKLINIKH Admitting Unavailable SAMANTHA FRANKLINIKH Primary Care Unavailable Unavailable Primary Care Provider Shaikh Mccallum MD Unavailable Dion Frazier MD Primary Care Provider [phone] Mikhail UNIVERSITY PROFESSOR, Ashley Unavailable Javid Marie MA Unavailable Unavailable Elizondo UNIVERSITY PROFESSOR, Ashley Unavailable ASHLEY ELIZONDO Attending UnavailDION Rose Attending Unavailable DION FRAZIER Attending Unavailable SHAIKH FRANKLIN Attending Unavailable ASHLEY ELIZONDO Attending Unavailabl e ASHLEY ELIZONDO Attending Unavailabl e MARGARITA AREVALO Attending Unavailable MARGARITA AREVALO Attending Unavailable FÁTIMA OLIVAS Referring Unavailable DOHERPREET Referring Unavailable DOPREET CASTRO Attending Unavailable DOHERFÁTIMAS Referring Unavailable DOHERPREET Attending Unavailable RIGOBERTO, JONAS Primary Care Unavailable ASHLEY ELIZONDO Referring Unavaila ble ASHLEY ELIZONDO Referring Unavaila ble RIGOBERTO, JONAS Primary Care Unavailable ASHLEY ELIZONDO Primary Care Unavaila ble BUTCH MANCUSO Attending Unavailable ASHLEY ELIZONDO Primary Care Unavaila ble JOVANNA MCMAHON Attending Unavailable DION FRAZIER Primary Care Unavailable NIMO MENDEZ Consulting Unavailable WISAM GUTIERRES Admitting Unavailable BHAVIK, MUHAMID M Attending Unavailable FREDDIEDION Referring Unavailable FREDDIEDION Primary Care Unavailable Mikhail UNIVERSITY PROFESSOR-C, Ashley Faria Primary Care Provid er Royal Mai MD Admit Provider [phone] Naldo Quinn MD Other Provider Jerardo Rosa MD Other Provider Maricruz Oseguera MD Other Provider Asher Lan DO Attending Provider Asher Lan DO Other Provider Junior Brand MD Other Provider Juan Moralez DO Other Provider [phone] Temo Arora Attending Unavailable Jerardo Rosa Consulting Unavailable Ashley Elizondo Primary Care Unavaila Royal Griffith Admitting Unavailable Maricruz Oseguera Consulting Unavailable Asher Lan Consulting Unavailable Junior Brand II Consulting Unavailabl e Juan Moralez Consulting Unavailable Allergies Allergy Classification Reported Allergen(s) Allergy Type Date of Onset Reaction(s) Facility (20 sources) Sulfonamides (Antibiotic); Translations: [SULFA (SULFONAMIDE ANTIBIOTICS)] Propensity to adverse reactions 05-17-[address] [facility] Work Phone: Comment on above: pt confused at this time. (12 sources) Pineapple; Translations: [PINEAPPLE] Propensity to adverse reactions to drug 04-16-20 11 Other: See Comments [facility] Work Phone: (12 sources) Bananas Propensity to adverse reactions 06-30-20 23 [facility] (17 sources) egg shell Propensity to adverse reactions 10-29-19 17 [facility] (17 sources) pineapple allergenic extract Drug Allergy 04-16-20 11 Other [facility] (17 sources) Sulfanilamide Propensity to adverse reactions 06-30-20 23 [facility] (19 sources) Amoxicillin-Pot Clavulanate; Translations: [AMOXICILLIN-POT CLAVULANATE] Drug Allergy 10-29-19 17 Unknown [facility] (17 sources) Egg-Derived Products Drug Intolerance 11-04-20 03 [facility] (1 source) OTHER; Translations: [OTHER] Propensity to adverse reactions (disorder) 05-17-20 [facility] Repository (2 sources) egg shell membrane; Translations: [EGGSHELL MEMBRANE] Propensity to adverse reactions to food (disorder) 10-29-19 [facility] Repository (2 sources) Amoxicillin; Translations: [amoxicillin] Drug Allergy 02-25-20 Unknown Reaction [facility] (2 sources) egg extract; Translations: [egg] Drug Allergy 02-25-20 Unknown Reaction [facility] Comment on above: pt confused at this time (1 source) Sulfonamides (Antibiotic) Drug allergy (disorder) 02-25-20 [facility] Repository (1 source) pineapple Drug allergy (disorder) 02-25-20 [facility] Repository Medications Current Medications Medication Drug Class(es) Dates Sig (Normalized) Sig (Original) [id number] 200 actuat albuterol 0.09 mg/actuat metered dose inhaler (20 sources) beta2-Adrenergic Agonist Start: 02-24-2025 Albuterol Sulfate 90 mcg/actuation HFA aerosol inhaler Active 2 INH INHALATION Every 4 hours as needed for shortness of breath or wheezing February 24, 2025 12:00am Complies with drug therapy Start: 05-07-2018 take 2 puff(s) by in halation every four hours as needed albuterol HFA (PROVENTIL HFA, VENTOLIN HFA) 90 mcg/actuation inhaler Inhale 2 Puffs as instructed every 4 hours as needed. 05/07/2018 Active take 2 puff(s) by in halation every four hours for wheezing albuterol HFA 90 mcg/act inhaler Inhale 2 puffs every 4 (four) hours if needed for wheezing Active albuterol 0.833 mg/ml / ipratropium bromide 0.167 mg/ml inhalation solution (1 source) Anticholinergic, beta2-Adrenergic Agonist Start: 02-24-2025 take 1 mL by inhalation every four hours as needed for wheezing Ipratropium-Albuterol 0.5 mg-3 mg(2.5 mg base)/3 mL solution for nebulization Active 3 ML INHALATION Every 4 hours as needed for wheezing February 24, 2025 12:00am Complies with drug therapy aspirin 500 mg oral tablet (8 sources) Platelet Aggregation Inhibitor, Nonsteroidal Anti-inflammatory Drug Start: 04-16-2011 take 2 tablets by mouth twice daily Aspirin (EXTRA STRENGTH GAIL) 500 mg ORAL Tab Take 1,000 mg by mouth twice daily. 0 04/16/2011 Active benzonatate 100 mg oral capsule (7 sources) Non-narcotic Antitussive Start: 02-24-2025 take 1 capsule by mouth three times daily as needed for cough Benzonatate 100 mg capsule Active 100 MG PO Three times daily as needed for cough February 24, 2025 12:00am Complies with drug therapy Start: 11-17-2024 take 1 capsule by mo ut three times daily as needed for cough benzonatate (Tessalon) 100 MG capsule Indications: Cough, unspecified type Take 1 capsule (100 mg) by mouth 3 (three) times a day as needed for cough 30 capsule 1 11/17/2024 Active Start: 08-05-2024 take 1 capsule by mo uth every eight hours benzonatate (Tessalon) 100 MG capsule Take 100 mg by mouth every 8 (eight) hours 08/05/2024 Active donepezil hydrochloride 10 mg oral tablet (20 sources) Start: 02-24-2025 take 1 tablet by mouth once daily at bedtime Donepezil 10 mg tablet Active 10 MG PO Daily at bedtime February 24, 2025 12:00am Complies with drug therapy Start: 01-23-2024 End: 01-22-2025 take 1 tablet by mouth once daily at bedtime donepezil (ARICEPT) 10 mg tablet Take 1 tablet by mouth daily at bedtime. 90 tablet 3 01/23/2024 01/22/2025 Active esomeprazole 40 mg delayed release oral capsule (20 sources) Proton Pump Inhibitor Start: 02-24-2025 take 1 capsule by mouth once daily Esomeprazole Magnesium (Nexium) 40 mg capsule,delayed release(DR/EC) Active 40 MG PO Daily February 24, 2025 12:00am Complies with drug therapy Start: 04-16-2011 take 1 capsule by mo ut once daily esomeprazole (NEXIUM) 40 mg ORAL capsule Take 1 capsule by mouth once daily. 0 04/16/2011 Active take 1 capsule by mo uth before mealtime esomeprazole (NexIUM) [address] capsule Take 20 mg by mouth in the morning. Take before meals. Do not open capsule.. Active fluticasone propionate 0.05 mg/actuat metered dose nasal spray (8 sources) Corticosteroid fluticasone (XI NASE) 50 mcg/actuation nasal spray Use 1 Kidder in the nose once daily. Active 60 actuat fluticasone propionate 0.113 mg/actuat / salmeterol xinafoate 0.014 mg/actuat dry powder inhaler (9 sources) Corticosteroid, beta2-Adrenergic Agonist Start: 02-24-2025 Fluticasone Propion-Salmeterol 113-14 mcg/actuation aerosol powdr breath activated Active 1 INH INHALATION Twice daily February 24, 2025 12:00am Complies with drug therapy Start: 04-16-2011 take 1 puff(s) by [facility] twice daily fluticasone-salmeterol (ADVAIR DISKUS) 250-50 mcg/dose INHALATION DsDv [...] mononitrate 30 mg extended release oral tablet (11 sources) Nitrate Vasodilator Start: 02-24-2025 take 1 tablet by mouth once daily, then take 2 tablets by mouth every twenty-four hours Isosorbide Mononitrate 30 mg tablet extended release 24 hr Active 15 MG PO Daily February 24, 2025 12:00am Complies with drug therapy Start: 10-24-2015 take 0.5 tablet by m outh twice daily isosorbide mononitrate ER (IMDUR) 30 mg 24 hr tablet Take 0.5 tablets by mouth twice daily. 10/24/2015 Active isosorbide monon itrate ER (Imdur) 30 MG 24 hr tablet 1 (one) time each day at the same time Active 24 hr loratadine 10 mg / pseudoephedrine sulfate 240 mg extended release oral tablet (20 sources) alpha-Adrenergic Agonist Start: 02-24-2025 take 1 tablet by mouth once daily, then take 1 tablet by mouth every twenty-four hours Loratadine-Pseudoephedrine (Claritin-D 24 Hour) 10-240 mg tablet extended release 24 hr Active 1 TAB PO Daily February 24, 2025 12:00am Complies with drug therapy take 1 tablet by donna once daily loratadine-pseudoephedrine ER (CLARITIN- D 24) 10-240 mg Tb24 Take 1 tablet by mouth once daily. Active take 10-240 mg by mo uth every twenty-four hours in the morning loratadine-pseudoephedrine ER (Claritin- D 24- hour) 10-240 MG 24 hr tablet Take 1 tablet by mouth in the morning. Do not crush, chew, or split.. Active memantine hydrochloride 10 mg oral tablet (20 sources) K-dpcfgi-L-aspartate Receptor Antagonist Start: 04-30-2024 End: 04-30-2025 take 1 tablet by mouth twice daily Memantine 10 mg tablet Active 10 MG PO Twice daily February 24, 2025 12:00am Complies with drug therapy mometasone furoate 0.05 mg/actuat metered dose nasal [...] list cleanup) sertraline 50 mg oral tablet (5 sources) Serotonin Reuptake Inhibitor Start: 02-24-2025 Sertraline 50 mg tablet Active 75 MG PO Daily February 24, 2025 12:00am Complies with drug therapy Start: 01-04-2025 take 1.5 tablets by mouth once daily sertraline (ZOLOFT) 50 mg tablet Take 1.5 tablets by mouth once daily. 60 tablet 5 01/04/2025 Active Start: 10-07-2024 End: 01-04-2025 take 1 tablet by mouth once daily sertraline (ZOLOFT) 50 mg tablet Take 1 tablet by mouth once daily. 30 tablet 5 10/07/2024 01/04/2025 Discontinued tiotropium 0.018 mg inhalation powder (1 source) Anticholinergic Start: 02-24-2025 take 1 capsule by inhalation once daily Tiotropium Amberg 18 mcg capsule, w/inhalation device Active 1 CAP INHALATION Daily February 24, 2025 12:00am puncture 1 cap using device; one dose = 2 inhalations Complies with drug therapy Umeclidinium (1 source) Anticholinergic Start: 02-24-2025 take 62.5 ug by inhalation once daily Umeclidinium (Incruse Ellipta) 62.5 mcg/actuation blister with device Active 1 INH INHALATION Daily February 24, 2025 12:00am Complies with drug therapy Completed/Discontinued Medications Medication Drug Class(es) Dates Sig (Normalized) Sig (Original) ciprofloxacin 500 mg oral tablet (1 source) Quinolone Antimicrobial Start: 02-24-2025 End: 02-26-2025 take 1 tablet by mouth twice daily Ciprofloxacin Hcl (Cipro) 500 mg tablet Discontinued 500 MG PO Twice daily February 24, 2025 12:00am February 26, 2025 7:59am Problems Active Problems Problem Classification Problem Date Documented Date Episodic/Chronic Asthma (20 sources) Asthma; Translations: [Unspecified asthma, uncomplicated] Onset: 04-16-2011 04-16-2011 Chronic Chronic obstructive pulmonary disease and bronchiectasis (1 source) Chronic obstructive pulmonary disease, unspecified; Translations: [Chronic obstructive pulmonary disease, unspecified] Onset: 02-10-2025 Chronic Coronary atherosclerosis and other heart disease (20 sources) Coronary arteriosclerosis; Translations: [Atherosclerotic heart disease of tejon coronary artery without angina pectoris] Onset: 06-21-2014 06-30-2023 Chronic Delirium, dementia, and amnestic and other cognitive disorders (20 sources) Senile dementia; 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] Onset: 02-15-2024 01-23-2024 Chronic E Codes: Fall (4 sources) Unspecified fall due to ice and snow, initial encounter; Translations: [Unspecified fall, initial encounter] Onset: 07-29-2024 02-24-2025 Episodic E Codes: Fall (1 source) Fall Onset: 07-29-2024 Esophageal disorders (20 sources) Gastroesophageal reflux disease; Translations: [Gastro-esophageal reflux disease without esophagitis] Onset: 04-16-2011 04-16-2011 Chronic Essential hypertension (20 sources) Essential hypertension; Translations: [Essential (primary) hypertension] Onset: 06-30-2023 06-30-2023 Chronic Fracture of neck of femur (hip) (5 sources) Nondisplaced fracture of greater trochanter of left femur, initial encounter for closed fracture; Translations: [Fracture of bone of hip region] Onset: 02-09-2025 02-24-2025 Episodic Malaise and fatigue (1 source) Weakness; [...] 02-09-2025 Unclassified (1 source) ill Onset: 07-29-2024 Unclassified (2 sources) Call if needed. Unclassified (2 sources) Please arrange a follow-up appointment once discharged from SNF. Past or Other Problems Problem Classification Problem Date Documented Date Episodic/Chronic Chronic obstructive pulmonary disease and bronchiectasis (1 source) Bronchitis, not specified as acute or chronic; Translations: [Bronchitis, not specified as acute or chronic] Onset: 08-05-2024 Episodic Mood disorders (17 sources) Mood disorders [...] Test Name Value Interpretation Reference Range Facility Basic Metabolic Panelon 02-11 Anion gap [Moles/Vol] 7.5 mmol/L Normal 6.0-15.0 [facility] Comment on above: Performed By: #### P TT, BMP, CBC, PT #### [facility] [address] [place] [address] [place] Calcium [Mass/Vol] 8.3 mg/dL Low 8.6-10.3 [facility] Comment on above: Performed By: #### P TT, BMP, CBC, PT #### [facility] [address] [place] [address] [place] Chloride [Moles/Vol] 111 mmol/L High 98-107 [facility] Comment on above: Performed By: #### P TT, BMP, CBC, PT #### [facility] [address] CO2 [Moles/Vol] 28.1 mmol/L Normal 21.0-31.0 The [facility] Comment on above: Performed By: #### P TT, BMP, CBC, PT #### [facility] [address] Creatinine [Mass/Vol] 0.92 mg/dL Normal 0.70-1.30 [facility] Comment on above: Performed By: #### P TT, BMP, CBC, PT #### [facility] [address] [place] [address] [place] Creatinine Clr Calc Pharmacy 51.05 Normal [facility] Comment on above: Result Comment: PERF ORMED BY: [place] [address] PATHOLOGIST PET TRAINER LAWANDA LORENZO M.D. Performed By: #### P TT, BMP, CBC, PT #### [place] [address] [place] GFR/1.73 sq M.predicted MDRD (S/P/Bld) [Vol rate/Area] mL/min/{1.73_m2} Normal [facility] Comment on above: Performed By: #### P TT, BMP, CBC, PT #### [place] [address] [place] Glucose [Mass/Vol] 104 mg/dL High 70-100 [facility] Comment on above: Result Comment: [place] Glucose Reference Range is dependent on time and content of last meal. Glucose of more than 200 mg/dL in a nonstressed, ambulatory subject supports the diagnosis of Diabetes Mellitus. ADA recommended reference range Performed By: #### P TT, BMP, CBC, PT #### [facility] [address] Potassium [Moles/Vol] 3.6 mmol/L Normal 3.5-5.1 [facility] Comment on above: Performed By: #### P TT, BMP, CBC, PT #### [address] [place] [address] [place] Sodium [Moles/Vol] 143 mmol/L Normal 136-145 [facility] Comment on above: Performed By: #### P TT, BMP, CBC, PT #### [facility] [address] Urea nitrogen [Mass/Vol] 19 mg/dL Normal 7-25 [facility] Comment on above: Performed By: #### P TT, BMP, CBC, PT #### [facility] [address] hip LT wo conon CT hip LT wo con [facility] [place] [address] [place] [address] CT Scan Report Signed Patient: Derrick Monae MR#: [id number] 217 : 1935 Acct:[id number] Age/Sex: 89 / M ADM Date: 02/24/25 Loc: Room: [address] [place] [address] Type: ADM IN Attending Dr: Naldo Quinn MD Copies to: MD Asher Schroeder DO Ordering Provider: Asher Lan DO Date of Service: 02/24/25 CT/CT hip LT wo con: L hip pain r/o fx CT left hip CLINICAL HISTORY: Left hip pain, rule out fracture COMPARISON: Pelvic x-ray 02/24/2025 TECHNIQUE: Contiguous axial unenhanced images were obtained left hip with 3-D reconstructions.. This CT exam was performed using one or more following dose reduction techniques: Automated exposure control, adjustment of the mA and/or kV according to patient size, or use of iterative reconstruction technique. FINDINGS: Mildly comminuted impacted and slightly posterior displaced left greater trochanteric fracture. Adjacent soft tissue contusion and adjacent hemorrhage identified. Acetabular cup intact. Degenerative changes left hip. No diastases of sacral joints or the pubic symphysis as visualized. CT/CT hip LT wo con IMPRESSION: Mildly comminuted left greater trochanteric fracture. Impression dictated by: Dk Daniels M.D. 02/24/2025 9:03 AM Dictation Location: [place] [address] Transcribed By: ESPERANZA 02/24/25902 Dictated By: Dk Daniels MD 02/24/25 0859 Signed By: 02/24/25902 Normal [facility] Complete Blood Count Auto Di ffon 02-24-2025 Basophils (Bld) [#/Vol] 0.1 10*3/uL Normal 0.0-0.2 [facility] Comment on above: Result Comment: PERF ORMED BY: [place] [address] PATHOLOGIST PET TRAINER LAWANDA LORENZO M.D. Performed By: #### P TT, BMP, CBC, PT #### [address] Basophils/100 WBC (Bld) 1.7 % Normal . T he [facility] Comment on above: Performed By: #### P TT, BMP, CBC, PT #### [address] Eosinophils (Bld) [#/Vol] 0.2 10*3/uL Normal 0.0-0.45 [facility] Comment on above: Performed By: #### P TT, BMP, CBC, PT #### [address] Eosinophils/100 WBC (Bld) 4.3 % Normal . [facility] Comment on above: Performed By: #### P TT, BMP, CBC, PT #### [address] Erythrocyte distribution width (RBC) [Ratio] 13.8 % Normal 12.0-14.8 [facility] Comment on above: Performed By: #### P TT, BMP, CBC, PT #### [address] Hematocrit (Bld) [Volume fraction] 34.7 % Low 38.8-50.0 [facility] Comment on above: Performed By: #### P TT, BMP, CBC, PT #### [address] Hemoglobin (Bld) [Mass/Vol] 11.7 g/dL Low 13.0-17.0 [facility] Comment on above: Performed By: #### P TT, BMP, CBC, PT #### [address] Lymphocytes (Bld) [#/Vol] 1.0 10*3/uL Normal 1.00-4.8 [facility] Comment on above: Performed By: #### P TT, BMP, CBC, PT #### [address] Lymphocytes/100 WBC (Bld) 18.2 % Normal . [facility] Comment on above: Performed By: #### P TT, BMP, CBC, PT #### [address] MCH (RBC) [Entitic mass] 31.6 pg Normal 27.5-35.2 [facility] Comment on above: Performed By: #### P TT, BMP, CBC, PT #### [address] MCV (RBC) [Entitic vol] 93.4 fL Normal 83.5-101 T he [facility] Comment on above: Performed By: #### P TT, BMP, CBC, PT #### [address] Mean Corpuscular HGB Conc 33.8 g/dL Normal 32.5-35.6 [facility] Comment on above: Performed By: #### P TT, BMP, CBC, PT #### [address] Monocytes (Bld) [#/Vol] 0.6 10*3/uL Normal 0.0-0.8 [facility] Comment on above: Performed By: #### P TT, BMP, CBC, PT #### [address] Monocytes/100 WBC (Bld) 11.7 % Normal . T he [facility] Comment on above: Performed By: #### P TT, BMP, CBC, PT #### [facility] [address] [place] [address] [place] Neutrophils (Bld) [#/Vol] 3.5 10*3/uL Normal 1.8-7.7 [facility] Comment on above: Performed By: #### P TT, BMP, CBC, PT #### [facility] [address] Neutrophils/100 WBC (Bld) 64.1 % Normal . [facility] Comment on above: Performed By: #### P TT, BMP, CBC, PT #### [facility] [address] NRBC% 0.0 /100{WBC} Normal 0-0.5 The [facility] Comment on above: Performed By: #### P TT, BMP, CBC, PT #### [address] Platelet mean volume (Bld) [Entitic vol] 7.4 fL Normal 6.6-10.1 The [facility] Comment on above: Performed By: #### P TT, BMP, CBC, PT #### [place] [address] [place] Platelets (Bld) [#/Vol] 279 10*3/uL Normal 150-450 [facility] Comment on above: Performed By: #### P TT, BMP, CBC, PT #### [place] [address] [place] RBC (Bld) [#/Vol] 3.71 10*6/uL Low 3.90-5.60 The [facility] Comment on above: Performed By: #### P TT, BMP, CBC, PT #### [facility] [address] [place] [address] [place] WBC (Bld) [#/Vol] 5.5 10*3/uL Normal 4.1-10.5 [facility] Comment on above: Performed By: #### P TT, BMP, CBC, PT #### [place] [address] [place] White Blood Count 5.5 [CFU]/mL Normal 4.1-10.5 [facility] Comment on above: Performed By: #### P TT, BMP, CBC, PT #### [address] Partial Thromboplastin Timeo n 02-24-2025 aPTT Coag (Bld) [Time] 30.7 s Normal 25.1-36.5 e [facility] Comment on above: Result Comment: A he matocrit value greater than 55% may lead to inaccurate results in coagulation testing. Patients having hematocrit values >55% require a special collection tube for coagulation studies. Please contact the laboratory at [phone] for redraw instructions. PERFORMED BY: [place] [address] PATHOLOGIST PET TRAINER LAWANDA LORENZO M.D. Performed By: #### P TT, BMP, CBC, PT #### [address] Prothrombin Time INRon 02-24 INR Coag (PPP) [Relative time] 1.1 {INR} Normal [facility] Comment on above: Result Comment: INR Therapeutic Range A) Pre- and Peroperative OAT started two weeks before surgery. NOT HIP SURGERY: 1.5 - 2.5 HIP SURGERY: 2 - 3 B) Primary and secondary prevention of venous THROMBOSIS: 2 - 3 C) Active venous thrombosis, pulmonary embolism and prevention of recurrent venous thrombosis: 2 - 3 D) Prevention of arterial thromboembolism including patients with mechanical heart valves: 3 - 4.5 Performed By: #### P TT, BMP, CBC, PT #### [place] [id number] [facility] PT Coag (PPP) [Time] 12.4 s Normal 9.0-12.9 [facility] Comment on above: Result Comment: A he matocrit value greater than 55% may lead to inaccurate results in coagulation testing. Patients having hematocrit values >55% require a special collection tube for coagulation studies. Please contact the laboratory at [phone] for redraw instructions. Performed By: #### P TT, BMP, CBC, PT #### [address] [place] [address] [facility] XR pelvis 1-2Von 02-24-2025 XR pelvis 1-2V [facility] Main [place] [address] [place] [address] XRay Report Signed Patient: Derrick Monae MR#: [id number] 217 : 1935 Acct:[id number] Age/Sex: 89 / M ADM Date: 02/24/25 Loc: Room: [address] [place] [address] Type: ADM IN Attending Dr: Naldo Qiunn MD Copies to: MD Asher Schroeder DO Ordering Provider: Asher Lan DO Date of Service: 02/24/25 XR/XR pelvis 1-2V: L hip pain Single view of the pelvis plain film HISTORY: Left hip pain. COMPARISON: CT examination February 24, 2025 ACUTE FINDINGS: Redemonstration of fracture involving the left greater trochanter. Mild comminution. BONY ALIGNMENT: Adequate SOFT TISSUES: Unremarkable DEGENERATIVE CHANGE:Unremarkable INTRAPELVIC STRUCTURES: Unremarkable POSTSURGICAL CHANGES:None XR/XR pelvis 1-2V IMPRESSION:Redemonst ration of mildly comminuted left greater trochanter fracture Impression dictated by: Tim Portillo M.D. 02/24/2025 12:10 PM Dictation Location: [place] [address] Transcribed By: [facility] 02/24/25 1210 Dictated By: Tim Portillo DO 02/24/25 1204 Signed By: 02/24/25 1210 Normal [facility] CBC WITH AUTO DIFFERENTIALon 02-11-2025 BASOPHILS ABSOLUTE COUNT (10*3/UL) BY AUTOMATED COUNT 0.1 10*3/uL Normal 0.0-0.2 [facility] Comment on above: Performed By: #### C MINDY, PINR, 63694-7, [facility], 61450-7, 74948-1 #### [facility] ([id number]) [address] [place] [address], [place] [address] BASOPHILS RELATIVE PERCENT BY AUTOMATED COUNT 1.2 % Normal [facility] Comment on above: Performed By: #### C BCA, PINR, 72992-7, CMP, 02257-4, 08033-9 #### [facility] ([id number]) [address] [place] [address] 79861 CELLAVISION DIFFERENTIAL TYPE AUTOMATED DIFFERENTIAL Normal [facility] Comment on above: Performed By: #### C BCA, PINR, 23936-7, CMP, 53862-1, 44020-3 #### [facility] ([id number]) [address] [place] [address] 57126 Eosinophils (Bld) [#/Vol] 0.2 10*3/uL Normal 0.0-0.4 [facility] Comment on above: Performed By: #### C BCA, PINR, 18552-3, CMP, 68015-0, 55591-7 #### [facility] ([id number]) [address] [place] [address] 25968 EOSINOPHILS RELATIVE PERCENT BY AUTOMATED COUNT 3.5 % Normal [facility] Comment on above: Performed By: #### C BCA, PINR, 69553-2, CMP, 28285-5, 11507-1 #### [facility] ([id number]) [address] [place] [address] 77199 Erythrocyte distribution width (RBC) [Ratio] 14.3 % Normal 11.5-15 [facility] Comment on above: Performed By: #### C BCA, PINR, 76351-0, CMP, 67958-0, 83711-7 #### [facility] ([id number]) [address] [place] [address] 27682 Hematocrit (Bld) [Volume fraction] 32.4 % Low 39-50 [facility] Comment on above: Performed By: #### C BCA, PINR, 33276-1, CMP, 48190-9, 92377-1 #### [facility] ([id number]) [address] [place] [address] 12845 Hemoglobin (Bld) [Mass/Vol] 11.1 g/dL Low 13-17 [facility] Comment on above: Performed By: #### C BCA, PINR, 92394-3, CMP, 04064-5, 52376-7 #### [facility] ([id number]) [address] [place] [address] 27089 LYMPHOCYTES ABSOLUTE COUNT (10*3/UL) BY AUTOMATED COUNT 1.0 10*3/uL Normal 1.0-3.5 [facility] Comment on above: Performed By: #### C BCA, PINR, 57963-9, CMP, 95202-7, 87240-3 #### [facility] ([id number]) [address] [place] [address] 69002 LYMPHOCYTES RELATIVE PERCENT BY AUTOMATED COUNT 17.6 % Normal [facility] Comment on above: Performed By: #### C BCA, PINR, 29510-2, CMP, 25908-7, 52469-7 #### [facility] ([id number]) [address] [place] [address] 49990 MCH (RBC) [Entitic mass] 31.4 pg Normal 27-34 [facility] Comment on above: Performed By: #### C BCA, PINR, 65527-7, CMP, 70643-6, 01567-7 #### [facility] ([id number]) [address] [place] [address] 19520 MCHC (RBC) [Mass/Vol] 34.2 g/dL Normal 32-36 [facility] Comment on above: Performed By: #### C BCA, PINR, 97151-2, CMP, 36494-5, 80302-9 #### [facility] ([id number]) [address] [place] [address] 07535 MCV (RBC) [Entitic vol] 92 fL Normal 80-100 [facility] Comment on above: Performed By: #### C BCA, PINR, 19692-8, CMP, 63793-5, 02530-6 #### [facility] ([id number]) [address] [place] [address] 95928 MONOCYTES ABSOLUTE COUNT (10*3/UL) BY AUTOMATED COUNT 0.7 10*3/uL Normal 0.0-0.9 [facility] Comment on above: Performed By: #### C BCA, PINR, 38081-9, CMP, 22502-8, 37932-9 #### [facility] ([id number]) [address] [place] [address] 01442 MONOCYTES RELATIVE PERCENT BY AUTOMATED COUNT 12.2 % Normal [facility] Comment on above: Performed By: #### C BCA, PINR, 68796-6, CMP, 47902-2, 52038-4 #### [facility] ([id number]) [address] [place] [address] 80689 NEUTROPHILS ABSOLUTE COUNT BY AUTOMATED COUNT 3.6 10*3/uL Normal 1.5-6.6 [facility] Comment on above: Performed By: #### C BCA, PINR, 37236-7, CMP, 81989-4, 42440-7 #### [facility] ([id number]) [address] [place] [address] 97128 NEUTROPHILS RELATIVE PERCENT BY AUTOMATED COUNT 65.5 % Normal [facility] Comment on above: Performed By: #### C BCA, PINR, 11489-8, CMP, 49976-5, 85877-2 #### [facility] ([id number]) [address] [place] [address] 29303 Platelet mean volume (Bld) [Entitic vol] 8.3 fL Normal 7-12 [facility] Comment on above: Performed By: #### C BCA, PINR, 81555-3, CMP, 05288-8, 64293-8 #### [facility] ([id number]) [address] [place] [address] 84634 Platelets (Bld) [#/Vol] 184 10*3/uL Normal 150-450 [facility] Comment on above: Performed By: #### C BCA, PINR, 68009-6, CMP, 68023-9, 92197-1 #### [facility] ([id number]) [address] [place] [address] 21714 RBC COUNT 3.53 X10E12/L Low 4.1-5.7 [facility] Comment on above: Performed By: #### C BCA, PINR, 02860-3, CMP, 75743-0, 23590-5 #### [facility] ([id number]) [address] [place] [address] 51661 WBC (Bld) [#/Vol] 5.4 10*3/uL Normal 4-11 [facility] Comment on above: Performed By: #### C BCA, PINR, 76643-3, CMP, 87855-1, 04702-6 #### [facility] ([id number]) [address] [place] [address] 94740 COMPREHENSIVE METABOLIC PANE Tim 02-11-2025 Albumin [Mass/Vol] 3.0 g/dL Low 3.2-5.3 [facility] Comment on above: Performed By: #### C BCA, PINR, 08766-5, CMP, 67595-7, 39804-7 #### [facility] ([id number]) [address] [place] [address] 91704 ALP [Catalytic activity/Vol] 84 U/L Normal 39-130 [facility] Comment on above: Performed By: #### C BCA, PINR, 49677-1, CMP, 83056-2, 29774-9 #### [facility] ([id number]) [address], [place] [address] ALT [Catalytic activity/Vol] 13 U/L Normal <=40 [facility] Comment on above: Performed By: #### C BCA, PINR, 60923-0, CMP, 28582-9, 83119-7 #### [facility] ([id number]) [address] [place] [address] 38169 Anion gap [Moles/Vol] 5 mmol/L Normal 5-15 [facility] Comment on above: Performed By: #### C BCA, PINR, 12197-5, CMP, 79917-5, 38759-9 #### [facility] ([id number]) [address] [place] [address] 25645 AST [Catalytic activity/Vol] 13 U/L Normal <=41 [facility] Comment on above: Performed By: #### C BCA, PINR, 24242-7, CMP, 91712-7, 31732-9 #### [facility] ([id number]) [address] [place] [address] 99255 Bilirubin [Mass/Vol] 0.8 mg/dL Normal 0.3-1.2 [facility] Comment on above: Performed By: #### C BCA, PINR, 60346-7, CMP, 96170-2, 69381-5 #### [facility] ([id number]) [address] [place] [address] 62780 Calcium [Mass/Vol] 8.0 mg/dL Low 8.5-10.5 [facility] Comment on above: Performed By: #### C BCA, PINR, 35546-2, CMP, 31787-9, 50363-3 #### [facility] ([id number]) [address] [place] [address] 57665 Chloride [Moles/Vol] 107 mmol/L Normal 98-109 [facility] Comment on above: Performed By: #### C BCA, PINR, 43253-5, CMP, 03950-2, 85351-6 #### [facility] ([id number]) [address] [place] [address] 07801 CO2 [Moles/Vol] 26 mmol/L Normal 22-32 [facility] Comment on above: Performed By: #### C BCA, PINR, 27548-1, CMP, 91727-7, 70210-2 #### [facility] ([id number]) [address] [place] [address] 44776 Creatinine [Mass/Vol] 0.73 mg/dL Normal 0.70-1.20 [facility] Comment on above: Result Comment: METH OD TRACEABLE TO IDMS STANDARD Performed By: #### C BCA, PINR, 82547-8, [facility], 95611-7, 03716-4 #### [facility] ([id number]) [address] [place] [address] 41070 GFR/1.73 sq M.predicted among non-blacks MDRD (S/P/Bld) [Vol rate/Area] 88 mL/min/{1.73_m2} Normal >=60 [facility] Comment on above: Result Comment: eGFR not reported due to non-numeric value for Creatinine. Reported eGFR is based on the CKD-EPI 2021 equation that does not use a race coefficient. Performed By: #### C BCA, PINR, 35075-7, [facility], 40678-5, 25277-1 #### [facility] ([id number]) [address] [place] [address] 47889 Glucose [Mass/Vol] 102 mg/dL High 65-99 [facility] Comment on above: Performed By: #### C BCA, PINR, 59251-2, CMP, 86876-7, 39051-4 #### [facility] ([id number]) [address] [place] [address] 26071 Potassium [Moles/Vol] 3.4 mmol/L Low 3.5-5.0 [facility] Comment on above: Performed By: #### C BCA, PINR, 43301-4, CMP, 64138-2, 77487-6 #### [facility] ([id number]) [address] [place] [address] 86410 Protein [Mass/Vol] 5.4 g/dL Low 6.0-8.0 [facility] Comment on above: Performed By: #### C BCA, PINR, 94172-3, CMP, 57336-9, 73714-4 #### [facility] ([id number]) [address] [place] [address] 27074 Sodium [Moles/Vol] 138 mmol/L Normal 134-146 [facility] Comment on above: Performed By: #### C BCA, PINR, 94421-3, CMP, 49337-8, 94022-9 #### [facility] ([id number]) [address] [place] [address] 00581 Urea nitrogen [Mass/Vol] 20 mg/dL Normal 5-27 [facility] Comment on above: Performed By: #### C BCA, PINR, 53066-1, CMP, 90047-2, 02694-9 #### [facility] ([id number]) [address] [place] [address] 19694 MAGNESIUMon 02-11-2025 Magnesium [Mass/Vol] 1.9 mg/dL Normal 1.8-2.6 [facility] Comment on above: Performed By: #### C BCA, PINR, 23672-5, CMP, 87140-0, 00789-6 #### [facility] ([id number]) [address] [place] [address] 94662 POTASSIUMon 02-11-2025 Potassium [Moles/Vol] 4.0 mmol/L Normal 3.5-5.0 [facility] Comment on above: Performed By: #### C BCA, PINR, 05470-9, CMP, 81967-4, 42242-7 #### [facility] ([id number]) [address] [place] [address] 47923 CBC WITH AUTO DIFFERENTIALon 02-10-2025 BASOPHILS ABSOLUTE COUNT (10*3/UL) BY AUTOMATED COUNT 0.1 10*3/uL Normal 0.0-0.2 [facility] Comment on above: Performed By: #### C BCA, PINR, 30668-9, CMP, 64319-0, 13312-0 #### [facility] ([id number]) [address] [place] [address] 67766 BASOPHILS RELATIVE PERCENT BY AUTOMATED COUNT 0.9 % Normal [facility] Comment on above: Performed By: #### C BCA, PINR, 20155-2, CMP, 88744-3, 67699-8 #### [facility] ([id number]) [address] [place] [address] 19545 CELLAVISION DIFFERENTIAL TYPE AUTOMATED DIFFERENTIAL Normal [facility] Comment on above: Performed By: #### C BCA, PINR, 80614-6, CMP, 68646-3, 66532-2 #### [facility] ([id number]) [address] [place] [address] 65473 Eosinophils (Bld) [#/Vol] 0.2 10*3/uL Normal 0.0-0.4 [facility] Comment on above: Performed By: #### C BCA, PINR, 95354-0, CMP, 95404-2, 28178-5 #### [facility] ([id number]) [address] [place] [address] 43615 EOSINOPHILS RELATIVE PERCENT BY AUTOMATED COUNT 2.4 % Normal [facility] Comment on above: Performed By: #### C BCA, PINR, 00684-8, CMP, 40218-0, 21721-9 #### [facility] ([id number]) [address] [place] [address] 03555 Erythrocyte distribution width (RBC) [Ratio] 13.7 % Normal 11.5-15 [facility] Comment on above: Performed By: #### C BCA, PINR, 88845-0, CMP, 99459-3, 89842-1 #### [facility] ([id number]) [address] [place] [address] 85530 Hematocrit (Bld) [Volume fraction] 35.8 % Low 39-50 [facility] Comment on above: Performed By: #### C BCA, PINR, 73534-6, CMP, 44563-2, 28207-2 #### [facility] ([id number]) [address] [place] [address] 14555 Hemoglobin (Bld) [Mass/Vol] 12.3 g/dL Low 13-17 [facility] Comment on above: Performed By: #### C BCA, PINR, 84909-3, CMP, 28927-5, 83086-7 #### [facility] ([id number]) [address] [place] [address] 72564 LYMPHOCYTES ABSOLUTE COUNT (10*3/UL) BY AUTOMATED COUNT 0.8 10*3/uL Low 1.0-3.5 [facility] Comment on above: Performed By: #### C BCA, PINR, 45644-8, CMP, 58457-6, 87268-4 #### [facility] ([id number]) [address] [place] [address] 16809 LYMPHOCYTES RELATIVE PERCENT BY AUTOMATED COUNT 11.1 % Normal [facility] Comment on above: Performed By: #### C BCA, PINR, 53388-2, CMP, 45752-9, 47146-5 #### [facility] ([id number]) [address] [place] [address] 02331 MCH (RBC) [Entitic mass] 31.3 pg Normal 27-34 [facility] Comment on above: Performed By: #### C BCA, PINR, 24690-1, CMP, 15008-1, 54457-5 #### [facility] ([id number]) [address] [place] [address] 29634 MCHC (RBC) [Mass/Vol] 34.3 g/dL Normal 32-36 [facility] Comment on above: Performed By: #### C BCA, PINR, 10038-9, CMP, 88069-1, 49311-9 #### [facility] ([id number]) [address] [place] [address] 55347 MCV (RBC) [Entitic vol] 91 fL Normal 80-100 [facility] Comment on above: Performed By: #### C BCA, PINR, 98848-8, CMP, 08300-8, 96278-1 #### [facility] ([id number]) [address] [place] [address] 44040 MONOCYTES ABSOLUTE COUNT (10*3/UL) BY AUTOMATED COUNT 0.7 10*3/uL Normal 0.0-0.9 [facility] Comment on above: Performed By: #### C BCA, PINR, 25824-6, CMP, 21684-5, 07064-0 #### [facility] ([id number]) [address] [place] [address] 26610 MONOCYTES RELATIVE PERCENT BY AUTOMATED COUNT 10.3 % Normal [facility] Comment on above: Performed By: #### C BCA, PINR, 04351-1, CMP, 09542-5, 99884-0 #### [facility] ([id number]) [address] [place] [address] 55522 NEUTROPHILS ABSOLUTE COUNT BY AUTOMATED COUNT 5.3 10*3/uL Normal 1.5-6.6 [facility] Comment on above: Performed By: #### C BCA, PINR, 43946-1, CMP, 09339-4, 10457-8 #### [facility] ([id number]) [address] [place] [address] 61183 NEUTROPHILS RELATIVE PERCENT BY AUTOMATED COUNT 75.3 % Normal [facility] Comment on above: Performed By: #### C BCA, PINR, 43349-6, CMP, 45659-7, 08229-6 #### [facility] ([id number]) [address] [place] [address] 83569 Platelet mean volume (Bld) [Entitic vol] 8.2 fL Normal 7-12 [facility] Comment on above: Performed By: #### C BCA, PINR, 91627-3, CMP, 81332-1, 58202-6 #### [facility] ([id number]) [address] [place] [address] 55423 Platelets (Bld) [#/Vol] 208 10*3/uL Normal 150-450 [facility] Comment on above: Performed By: #### C BCA, PINR, 84707-6, CMP, 69287-0, 55231-8 #### [facility] ([id number]) [address] [place] [address] 75120 RBC COUNT 3.93 X10E12/L Low 4.1-5.7 [facility] Comment on above: Performed By: #### C BCA, PINR, 24470-2, CMP, 87839-2, 15131-8 #### [facility] ([id number]) [address] [place] [address] 52981 WBC (Bld) [#/Vol] 7.0 10*3/uL Normal 4-11 [facility] Comment on above: Performed By: #### Arnulfo BCA, PINR, 22066-9, CMP, 72684-7, 80525-2 #### [facility] ([id number]) [address] [place] [address] 30448 COMPREHENSIVE METABOLIC PANE Tim 02-10-2025 Albumin [Mass/Vol] 3.2 g/dL Normal 3.2-5.3 [facility] Comment on above: Performed By: #### C BCA, PINR, 04425-0, CMP, 51856-7, 89424-0 #### [facility] ([id number]) [address] [place] [address] 95884 ALP [Catalytic activity/Vol] 95 U/L Normal 39-130 [facility] Comment on above: Performed By: #### C BCA, PINR, 72057-9, CMP, 70846-8, 43473-9 #### [facility] ([id number]) [address] [place] [address] 32820 ALT [Catalytic activity/Vol] 15 U/L Normal <=40 [facility] Comment on above: Performed By: #### C BCA, PINR, 06862-7, CMP, 59950-3, 94989-9 #### [facility] ([id number]) [address] [place] [address] 23634 Anion gap [Moles/Vol] 9 mmol/L Normal 5-15 [facility] Comment on above: Performed By: #### C BCA, PINR, 28358-6, CMP, 27657-1, 71686-2 #### [facility] ([id number]) [address] [place] [address] 05097 AST [Catalytic activity/Vol] 15 U/L Normal <=41 [facility] Comment on above: Performed By: #### C BCA, PINR, 41670-6, CMP, 65831-0, 49159-8 #### [facility] ([id number]) [address] [place] [address] 70666 Bilirubin [Mass/Vol] 0.7 mg/dL Normal 0.3-1.2 [facility] Comment on above: Performed By: #### C BCA, PINR, 10931-6, CMP, 56849-5, 85997-3 #### [facility] ([id number]) [address] [place] [address] 97693 Calcium [Mass/Vol] 8.2 mg/dL Low 8.5-10.5 [facility] Comment on above: Performed By: #### C BCA, PINR, 37691-7, CMP, 93204-3, 03783-0 #### [facility] ([id number]) [address] [place] [address] 12275 Chloride [Moles/Vol] 107 mmol/L Normal 98-109 [facility] Comment on above: Performed By: #### C BCA, PINR, 30352-5, CMP, 91380-9, 76435-0 #### [facility] ([id number]) [address] [place] [address] 26322 CO2 [Moles/Vol] 24 mmol/L Normal 22-32 [facility] Comment on above: Performed By: #### C BCA, PINR, 32279-7, CMP, 53893-7, 98100-2 #### [facility] ([id number]) [address] [place] [address] 09841 Creatinine [Mass/Vol] 0.84 mg/dL Normal 0.70-1.20 [facility] Comment on above: Result Comment: METH OD TRACEABLE TO IDMS STANDARD Performed By: #### C BCA, PINR, 96850-4, CMP, 08443-0, 13703-0 #### [facility] ([id number]) [address] [place] [address] 79935 GFR/1.73 sq M.predicted among non-blacks MDRD (S/P/Bld) [Vol rate/Area] 84 mL/min/{1.73_m2} Normal >=60 [facility] Comment on above: Result Comment: eGFR not reported due to non-numeric value for Creatinine. Reported eGFR is based on the CKD-EPI 2020 equation that does not use a race coefficient. Performed By: #### C BCA, PINR, 52673-8, CMP, 94065-9, 53836-2 #### [facility] ([id number]) [address] [place] [address] 54977 Glucose [Mass/Vol] 104 mg/dL High 65-99 [facility] Comment on above: Performed By: #### C BCA, PINR, 73537-2, CMP, 85314-2, 94274-4 #### [facility] ([id number]) [address] [place] [address] 26210 Potassium [Moles/Vol] 3.5 mmol/L Normal 3.5-5.0 [facility] Comment on above: Performed By: #### C BCA, PINR, 74624-4, CMP, 96415-5, 64374-2 #### [facility] ([id number]) [address] [place] [address] 37597 Protein [Mass/Vol] 5.7 g/dL Low 6.0-8.0 [facility] Comment on above: Performed By: #### C BCA, PINR, 49027-4, CMP, 56378-9, 94453-4 #### [facility] ([id number]) [address] [place] [address] 10898 Sodium [Moles/Vol] 140 mmol/L Normal 134-146 [facility] Comment on above: Performed By: #### C BCA, PINR, 83236-7, CMP, 34666-2, 35812-7 #### [facility] ([id number]) [address] [place] [address] 76355 Urea nitrogen [Mass/Vol] 22 mg/dL Normal 5-27 [facility] Comment on above: Performed By: #### C BCA, PINR, 90065-1, CMP, 09519-1, 44716-6 #### [facility] ([id number]) [address] [place] [address] 84162 MAGNESIUMon 02-10-2025 Magnesium [Mass/Vol] 1.8 mg/dL Normal 1.8-2.6 [facility] Comment on above: Performed By: #### C BCA, PINR, 00266-0, CMP, 23084-8, 92692-3 #### [facility] ([id number]) [address] [place] [address] 93623 CBC WITH AUTO DIFFERENTIALon 02-09-2025 BASOPHILS ABSOLUTE COUNT (10*3/UL) BY AUTOMATED COUNT 0.1 10*3/uL Normal 0.0-0.2 [facility] Comment on above: Performed By: #### C BCA, PINR, 56325-2, CMP, 75845-2, 76977-5 #### [facility] ([id number]) [address] [place] [address] 98185 BASOPHILS RELATIVE PERCENT BY AUTOMATED COUNT 2.7 % Normal [facility] Comment on above: Performed By: #### C BCA, PINR, 33664-0, CMP, 25919-7, 80732-4 #### [facility] ([id number]) [address] [place] [address] 37489 CELLAVISION DIFFERENTIAL TYPE AUTOMATED DIFFERENTIAL Normal [facility] Comment on above: Performed By: #### C BCA, PINR, 29634-2, CMP, 85704-5, 07971-2 #### [facility] ([id number]) [address] [place] [address] 71338 Eosinophils (Bld) [#/Vol] 0.1 10*3/uL Normal 0.0-0.4 [facility] Comment on above: Performed By: #### C BCA, PINR, 70160-9, CMP, 85836-6, 90308-8 #### [facility] ([id number]) [address] [place] [address] 01927 EOSINOPHILS RELATIVE PERCENT BY AUTOMATED COUNT 2.4 % Normal [facility] Comment on above: Performed By: #### C BCA, PINR, 32210-6, CMP, 21182-2, 02152-3 #### [facility] ([id number]) [address] [place] [address] 19212 Erythrocyte distribution width (RBC) [Ratio] 14.0 % Normal 11.5-15 [facility] Comment on above: Performed By: #### C BCA, PINR, 57358-3, CMP, 91969-0, 33093-9 #### [facility] ([id number]) [address] [place] [address] 88630 Hematocrit (Bld) [Volume fraction] 39.6 % Normal 39-50 [facility] Comment on above: Performed By: #### C BCA, PINR, 72664-5, CMP, 97838-3, 62220-6 #### [facility] ([id number]) [address] [place] [address] 41406 Hemoglobin (Bld) [Mass/Vol] 13.5 g/dL Normal 13-17 [facility] Comment on above: Performed By: #### C BCA, PINR, 01146-3, CMP, 84796-1, 28586-7 #### [facility] ([id number]) [address] [place] [address] 99459 LYMPHOCYTES ABSOLUTE COUNT (10*3/UL) BY AUTOMATED COUNT 0.7 10*3/uL Low 1.0-3.5 [facility] Comment on above: Performed By: #### C BCA, PINR, 93156-6, CMP, 22602-5, 67076-6 #### [facility] ([id number]) [address] [place] [address] 08260 LYMPHOCYTES RELATIVE PERCENT BY AUTOMATED COUNT 12.1 % Normal [facility] [facility] Comment on above: Performed By: #### C BCA, PINR, 13791-7, CMP, 60510-6, 95673-3 #### [facility] ([id number]) [address] [place] [address] 93154 MCH (RBC) [Entitic mass] 31.0 pg Normal 27-34 [facility] Comment on above: Performed By: #### C BCA, PINR, 41214-6, CMP, 08796-9, 48526-5 #### [facility] ([id number]) [address] [place] [address] 17053 MCHC (RBC) [Mass/Vol] 34.2 g/dL Normal 32-36 [facility] Comment on above: Performed By: #### C BCA, PINR, 10704-4, CMP, 69225-6, 40401-0 #### [facility] ([id number]) [address] [place] [address] 47551 MCV (RBC) [Entitic vol] 91 fL Normal 80-100 [facility] Comment on above: Performed By: #### C BCA, PINR, 83932-7, CMP, 17314-2, 04231-5 #### [facility] ([id number]) [address] [place] [address] 37284 MONOCYTES ABSOLUTE COUNT (10*3/UL) BY AUTOMATED COUNT 0.5 10*3/uL Normal 0.0-0.9 [facility] Comment on above: Performed By: #### C BCA, PINR, 11163-1, CMP, 71118-7, 14092-7 #### [facility] ([id number]) [address] [place] [address] 37178 MONOCYTES RELATIVE PERCENT BY AUTOMATED COUNT 9.2 % Normal [facility] Comment on above: Performed By: #### C BCA, PINR, 80200-8, CMP, 45745-5, 40197-8 #### [facility] ([id number]) [address] [place] [address] 95935 NEUTROPHILS ABSOLUTE COUNT BY AUTOMATED COUNT 4.0 10*3/uL Normal 1.5-6.6 [facility] Comment on above: Performed By: #### C BCA, PINR, 89084-4, CMP, 78687-5, 58039-5 #### [facility] ([id number]) [address] [place] [address] 82945 NEUTROPHILS RELATIVE PERCENT BY AUTOMATED COUNT 73.6 % Normal [facility] Comment on above: Performed By: #### C BCA, PINR, 67709-0, CMP, 84964-7, 00883-4 #### [facility] ([id number]) [address] [place] [address] 07089 Platelet mean volume (Bld) [Entitic vol] 8.1 fL Normal 7-12 [facility] Comment on above: Performed By: #### C BCA, PINR, 18322-7, CMP, 45382-4, 54330-2 #### [facility] ([id number]) [address] [place] [address] 08647 Platelets (Bld) [#/Vol] 262 10*3/uL Normal 150-450 [facility] Comment on above: Performed By: #### C BCA, PINR, 58193-4, CMP, 58691-6, 32249-6 #### [facility] ([id number]) [address] [place] [address] 67072 RBC COUNT 4.36 X10E12/L Normal 4.1-5.7 [facility] Comment on above: Performed By: #### C BCA, PINR, 77140-4, CMP, 29737-1, 19555-9 #### [facility] ([id number]) [address] [place] [address] [place] [address] WBC (Bld) [#/Vol] 5.4 10*3/uL Normal 4-11 [facility] Comment on above: Performed By: #### C BCA, PINR, 53071-8, CMP, 62132-9, 18996-6 #### [facility] ([id number]) [address] [place] [address] 25280 COMPREHENSIVE METABOLIC PANE Tim 02-09-2025 Albumin [Mass/Vol] 3.8 g/dL Normal 3.2-5.3 [facility] Comment on above: Performed By: #### C BCA, PINR, 63679-9, CMP, 81530-2, 46844-2 #### [facility] ([id number]) [address] [place] [address] 61503 ALP [Catalytic activity/Vol] 108 U/L Normal 39-130 [facility] Comment on above: Performed By: #### C BCA, PINR, 90166-5, CMP, 85133-2, 70392-8 #### [facility] ([id number]) [address] [place] [address] 74431 ALT [Catalytic activity/Vol] 19 U/L Normal <=40 [facility] Comment on above: Performed By: #### C BCA, PINR, 45194-5, CMP, 84393-9, 70662-2 #### [facility] ([id number]) [address] [place] [address] 42481 Anion gap [Moles/Vol] 4 mmol/L Low 5-15 [facility] Comment on above: Performed By: #### C BCA, PINR, 67227-0, CMP, 93688-5, 61933-3 #### [facility] ([id number]) [address] [place] [address] 67072 AST [Catalytic activity/Vol] 20 U/L Normal <=41 [facility] Comment on above: Performed By: #### C BCA, PINR, 76094-2, CMP, 57098-9, 02281-6 #### [facility] ([id number]) [address] [place] [address] 65604 Bilirubin [Mass/Vol] 0.2 mg/dL Low 0.3-1.2 [facility] Comment on above: Performed By: #### C BCA, PINR, 21252-8, CMP, 81395-1, 81297-7 #### [facility] ([id number]) [address] [place] [address] 00225 Calcium [Mass/Vol] 8.3 mg/dL Low 8.5-10.5 [facility] Comment on above: Performed By: #### C BCA, PINR, 86706-3, CMP, 25644-6, 37948-5 #### [facility] ([id number]) [address] [place] [address] 46306 Chloride [Moles/Vol] 111 mmol/L High 98-109 [facility] Comment on above: Performed By: #### C BCA, PINR, 25601-8, CMP, 55898-8, 24703-5 #### [facility] ([id number]) [address] [place] [address] 77688 CO2 [Moles/Vol] 22 mmol/L Normal 22-32 [facility] Comment on above: Performed By: #### C BCA, PINR, 69871-4, CMP, 06584-3, 26108-7 #### [facility] ([id number]) [address] [place] [address] 76762 Creatinine [Mass/Vol] 0.84 mg/dL Normal 0.70-1.20 [facility] Comment on above: Result Comment: METH OD TRACEABLE TO IDMS STANDARD Performed By: #### C BCA, PINR, 67065-5, CMP, 89714-4, 29230-3 #### [facility] ([id number]) [address] [place] [address] 35138 GFR/1.73 sq M.predicted among non-blacks MDRD (S/P/Bld) [Vol rate/Area] 84 mL/min/{1.73_m2} Normal >=60 [facility] Comment on above: Result Comment: eGFR not reported due to non-numeric value for Creatinine. Reported eGFR is based on the CKD-EPI 202 equation that does not use a race coefficient. Performed By: #### C BCA, PINR, 41096-0, CMP, 57451-4, 21343-6 #### [facility] ([id number]) [address] [place] [address] 44740 Glucose [Mass/Vol] 124 mg/dL High 65-99 [facility] Comment on above: Performed By: #### C BCA, PINR, 84448-2, CMP, 40034-5, 52924-6 #### [facility] ([id number]) [address] [place] [address] 79472 Potassium [Moles/Vol] 3.5 mmol/L Normal 3.5-5.0 [facility] Comment on above: Performed By: #### C BCA, PINR, 63207-5, CMP, 81176-0, 36623-4 #### [facility] ([id number]) [address] [place] [address] 16604 Protein [Mass/Vol] 6.4 g/dL Normal 6.0-8.0 [facility] Comment on above: Performed By: #### C BCA, PINR, 82226-9, CMP, 03371-8, 86663-8 #### [facility] ([id number]) [address] [place] [address] 21020 Sodium [Moles/Vol] 137 mmol/L Normal 134-146 [facility] Comment on above: Performed By: #### C BCA, PINR, 39552-7, [facility], 93779-1, 29405-6 #### [facility] ([id number]) [address] [place] [address] 30822 Urea nitrogen [Mass/Vol] 21 mg/dL Normal 5-27 [facility] Comment on above: Performed By: #### C BCA, PINR, 96774-9, [facility], 01264-6, 36790-2 #### [facility] ([id number]) [address] [place] [address]RAIN [address] CONTon CT BRAIN WO CONT CT BRAIN WO [...] Eid MD on 02/09/2025 3:26 PM Normal [facility] CT CERVICAL SPINE WO CONTon 02-09-2025 [...] Stone MD on 02/09/2025 3:41 PM Normal [facility] CT HIP LT WO CONTon 02-10-20 [...] Mccartney MD on 02/09/2025 4:08 PM Normal [facility] MAGNESIUMon 02-09-2025 Magnesium [Mass/Vol] 2.0 mg/dL Normal 1.8-2.6 [facility] Comment on above: Performed By: #### C BCA, PINR, 63772-7, CMP, 16273-5, 69215-7 #### [facility] ([id number]) [address] [place] [address], [place] [address] PREALBUMINon 02-09-2025 Prealbumin [Mass/Vol] 20 mg/dL Normal 18-45 [facility] Comment on above: Performed By: #### C BCA, PINR, 43506-1, CMP, 71937-5, 08723-5 #### [facility] ([id number]) [address] [place] [address] 52706 REPEATED ABORHon 02-09-2025 ABO_INTEP A [facility] Comment on above: Performed By: #### C BCA, PINR, 05754-8, CMP, 02396-1, 70502-5 #### [facility] ([id number]) [address] [place] [address] 96590 RH_INTEP Negative [facility] Comment on above: Performed By: #### C BCA, PINR, 45362-8, CMP, 47792-1, 19352-7 #### [facility] ([id number]) [address] [place] [address] 04562 TROP I, HIGH SENSITIVITY 1 H OURon 02-09-2025 TROPONIN I, HIGH SENSITIVITY 4 ng/L Normal <21 [facility] Comment on above: Performed By: #### C BCA, PINR, 16601-0, CMP, 55441-0, 82306-9 #### [facility] ([id number]) [address] [place] [address] 74316 TROPONIN I, HIGH SENSITIVITY 0 HOURon 02-09-2025 TROPONIN I, HIGH SENSITIVITY 4 ng/L Normal <21 [facility] Comment on above: Performed By: #### C BCA, PINR, 81751-5, CMP, 99744-7, 52716-9 #### [facility] ([id number]) [address] [place] [address] [place] [address] TYPE AND SCREENon 02-09-2025 ABO_INTEP A [facility] Comment on above: Performed By: #### C BCA, PINR, 53890-4, CMP, 97829-5, 35253-9 #### [facility] ([id number]) [address] [place] [address] 46372 RH_INTEP Negative Normal [facility] Comment on above: Performed By: #### C KRISTY GUILLENR, 27773-8, [facility], 35962-6, 08720-5 #### [facility] ([id number]) [address] [place] [address] 68775 VITAMIN D 25 HYDROXYon 02-09 VITAMIN D 25 HYD TOT 40.6 ng/mL Normal 30.0-100.0 [facility] Comment on above: Order Comment: Vitam in D status 25 [place] Vitamin D Deficienc y <20 ng/mLInsufficiency 20-29 ng/mLSufficiency 30-100 ng/mLToxicity >100 ng/mLNOTE: A pediatric reference range has not been established by the yacht master of this kit. The [place] [employer] recommends a Vitamin D level of = or >20ng/mL in infants and children. Performed By: #### C KRISTY GUILLENR, 79830-7, [facility], 58860-9, 51890-1 #### [facility] ([id number]) [address] [place] [address] 00353 XR CHEST 1 VWon 02-09-2025 XR CHEST [...] Ohara MD on 02/09/2025 3:42 PM Normal [facility] XR FEMUR LT 2+ VIEWSon 02-09 [...] Mccartney MD on 02/09/2025 3:46 PM Normal [facility] XR HIP LT 2-3 VIEWS W [...] Mir Mccartney MD on 02/09/2025 3:45 PM Normal [facility] CNPNon 01-05-2025 [facility] Telephone ([facility]) DERRICK MONAE ([id number]) 1935 M Date Time Provider Department 01/05/25 MARGARITA AREVALO [facility] During your visit today, we recorded the following information about you: Jackson Alegre 01/05/2025 2:51 PM Signed Left voicemail regarding scheduling follow up with Margarita in 3 months (Mar 2025), and new consult with Virginia Camacho, the [facility] social services specialist, scheduling number included for call back. Allergies [...] and new consult with Virginia Camacho, the [facility] social services specialist, scheduling number included for call back. Prescriptions [...] (FLONASE) 50 mcg/actuation nasal spray Use 1 Kidder in the nose once daily. - loratadine-pseudoeph [...] Encounter Status:Closed by JACKSON ALEGRE on 01/05/25 [facility] CNOVon 10-07-2024 CNOV Office Visit ([facility]) DERRICK MONAE ([id number]) 1935 M Date Time Provider Department 10/07/24 1:00 PM MARGARITA AREVALO During your visit today, we recorded the following information about you: Pulse Blood pressure Weight 115/minute 129/91 69.6 kg Margarita Arevalo PA-C 10/07/2024 2:21 PM Signed Derrick Monae 1935 [address] [facility] [address] October 07, 2024 Time: 11:58 AM [facility] FOLLOW-UP NOTE Accompanied by: spouse and daughter (she is visiting, lives in [place]) SUBJECTIVE Derrick Monae is a pleasant 89 [...] worse, daughter agrees. She is visiting from [place], here for about one month. Spouse states [...] disease) COPD (chronic obstructive pulmonary disease) ([facility]) GERD (gastroesophageal reflux disease) SOCIAL HISTORY [...] (FLONASE) 50 mcg/actuation nasal spray Use 1 Kidder in the nose once daily. loratadine-pseudoeph edrine [...] Insight: poor (more content not included)... Normal [facility] BASIC METABOLIC PANLon 08-05 Anion gap [Moles/Vol] 11 mmol/L Normal 5-15 [facility] Comment on above: Performed By: #### C BCA, PINR, 45021-9, CMP, 67970-2, 19448-2 #### [facility] ([id number]) [address] [place] [address] 39382 Calcium [Mass/Vol] 8.4 mg/dL Low 8.5-10.5 [facility] Comment on above: Performed By: #### C BCA, PINR, 25945-1, CMP, 30994-3, 22940-4 #### [facility] ([id number]) [address] [place] [address] 85785 Chloride [Moles/Vol] 103 mmol/L Normal 98-109 [facility] Comment on above: Performed By: #### C BCA, PINR, 22683-1, CMP, 84081-5, 39822-3 #### [facility] ([id number]) [address] [place] [address] 84648 CO2 [Moles/Vol] 23 mmol/L Normal 22-32 [facility] Comment on above: Performed By: #### C BCA, PINR, 22849-7, CMP, 51621-3, 33686-9 #### [facility] ([id number]) [address] [place] [address] 07602 Creatinine [Mass/Vol] 0.82 mg/dL Normal 0.70-1.20 [facility] Comment on above: Result Comment: METH OD TRACEABLE TO IDMS STANDARD Performed By: #### C BCA, PINR, 91981-7, CMP, 29291-7, 08326-8 #### [facility] ([id number]) [address] [place] [address] 75558 GFR/1.73 sq M.predicted among non-blacks MDRD (S/P/Bld) [Vol rate/Area] 85 mL/min/{1.73_m2} Normal >59 [facility] Comment on above: Result Comment: Reported eGFR is based on the CKD-EPI 2020 equation that does not use a race coefficient. Performed By: #### C BCA, PINR, 10317-1, CMP, 84243-2, 86891-6 #### [facility] ([id number]) [address] [place] [address] 98840 Glucose [Mass/Vol] 108 mg/dL High 65-99 [facility] Comment on above: Performed By: #### C BCA, PINR, 29861-0, CMP, 46518-6, 71421-4 #### [facility] ([id number]) [address] [place] [address] 26926 Potassium [Moles/Vol] 3.9 mmol/L Normal 3.5-5.0 [facility] Comment on above: Performed By: #### C BCA, PINR, 39717-3, CMP, 96607-4, 21823-8 #### [facility] ([id number]) [address] [place] [address] 77998 Sodium [Moles/Vol] 137 mmol/L Normal 134-146 [facility] Comment on above: Performed By: #### C BCA, PINR, 02074-3, CMP, 74307-3, 72679-6 #### [facility] ([id number]) [address] [place] [address] 87998 Urea nitrogen [Mass/Vol] 17 mg/dL Normal 5-27 [facility] Comment on above: Performed By: #### C BCA, PINR, 00704-4, CMP, 80589-6, 01080-6 #### [facility] ([id number]) [address] [place] [address] 75850 CBC AND AUTO DIFFon 08-05-19 25 ABSOLUTE BASOPHIL 0.1 X10E9/L Normal 0.0-0.2 [facility] Comment on above: Performed By: #### C BCA, PINR, 81790-2, CMP, 86192-4, 04116-1 #### [facility] ([id number]) [address] [place] [address] 48077 ABSOLUTE NEUTROPHIL 5.3 X10E9/L Normal 1.5-6.6 [facility] Comment on above: Performed By: #### C BCA, PINR, 10034-0, CMP, 63158-9, 88177-7 #### [facility] ([id number]) [address] [place] [address] 32238 Basophils/100 WBC (Bld) 0.8 % Normal [facility] Comment on above: Performed By: #### C BCA, PINR, 25965-2, CMP, 19594-2, 29464-9 #### [facility] ([id number]) [address] [place] [address] 53388 Eosinophils (Bld) [#/Vol] 0.1 10*3/uL Normal 0.0-0.4 [facility] Comment on above: Performed By: #### C BCA, PINR, 22759-6, CMP, 65970-9, 19604-1 #### [facility] ([id number]) [address] [place] [address] 18514 Eosinophils/100 WBC (Bld) 2.0 % Normal [facility] Comment on above: Performed By: #### C BCA, PINR, 41656-8, CMP, 77538-8, 35185-1 #### [facility] ([id number]) [address] [place] [address] 99966 Erythrocyte distribution width (RBC) [Ratio] 14.3 % Normal 11.5-15.0 [facility] Comment on above: Performed By: #### C BCA, PINR, 13388-2, CMP, 00225-9, 17651-2 #### [facility] ([id number]) [address] [place] [address] 85357 Hematocrit (Bld) [Volume fraction] 40.1 % Normal 39-49 [facility] Comment on above: Performed By: #### C BCA, PINR, 83761-0, CMP, 27743-9, 08531-6 #### [facility] ([id number]) [address] [place] [address] 89790 Hemoglobin (Bld) [Mass/Vol] 13.6 g/dL Normal 13.0-17.0 [facility] Comment on above: Performed By: #### C MINDY, PINR, 84195-5, CMP, 46270-9, 90552-4 #### [facility] ([id number]) [address] [place] [address] 70198 Lymphocytes (Bld) [#/Vol] 0.7 10*3/uL Low 1.0-3.5 [facility] Comment on above: Performed By: #### C BCA, PINR, 06569-7, CMP, 30504-6, 30996-9 #### [facility] ([id number]) [address] [place] [address] 43320 Lymphocytes/100 WBC (Bld) 9.7 % Normal [facility] Comment on above: Performed By: #### Arnulfo BCA, PINR, 64521-1, CMP, 99649-6, 94163-9 #### [facility] ([id number]) [address] [place] [address] 02276 MCH (RBC) [Entitic mass] 30.9 pg Normal 27-34 [facility] Comment on above: Performed By: #### Arnulfo BCA, PINR, 36280-8, CMP, 73576-0, 58692-8 #### [facility] ([id number]) [address] [place] [address] 74866 MCHC (RBC) [Mass/Vol] 33.8 g/dL Normal 32-36 [facility] Comment on above: Performed By: #### C BCA, PINR, 38486-0, CMP, 08134-2, 53142-9 #### [facility] ([id number]) [address] [place] [address] 92764 MCV (RBC) [Entitic vol] 91 fL Normal 80-100 [facility] Comment on above: Performed By: #### C BCA, PINR, 55124-0, CMP, 88967-5, 87544-8 #### [facility] ([id number]) [address] [place] [address] 30227 Monocytes (Bld) [#/Vol] 0.8 10*3/uL Normal 0-0.9 [facility] Comment on above: Performed By: #### C BCA, PINR, 53116-6, CMP, 07935-4, 72139-6 #### [facility] ([id number]) [address] [place] [address] 60769 Monocytes/100 WBC (Bld) 11.3 % Normal [facility] Comment on above: Performed By: #### C BCA, PINR, 47892-5, CMP, 55873-3, 47537-8 #### [facility] ([id number]) [address] [place] [address] 85878 Neutrophils/100 WBC (Bld) 76.2 % Normal [facility] Comment on above: Performed By: #### C BCA, PINR, 87695-3, CMP, 03932-7, 97575-1 #### [facility] ([id number]) [address] [place] [address] 94334 Platelet mean volume (Bld) [Entitic vol] 7.8 fL Normal 7-12 [facility] Comment on above: Performed By: #### C BCA, PINR, 07386-2, CMP, 02491-1, 12850-8 #### [facility] ([id number]) [address] [place] [address] 42849 Platelets (Bld) [#/Vol] 207 10*3/uL Normal 150-450 [facility] Comment on above: Performed By: #### C BCA, PINR, 00989-5, CMP, 81049-3, 85167-8 #### [facility] ([id number]) [address] [place] [address] 91332 RBC COUNT 4.38 X10E12/L Normal 4.10-5.70 [facility] Comment on above: Performed By: #### C BCA, PINR, 34722-5, CMP, 57675-9, 49804-7 #### [facility] ([id number]) [address] [place] [address] 07593 WBC (Bld) [#/Vol] 6.9 10*3/uL Normal 4.0-11.0 [facility] Comment on above: Performed By: #### C BCA, PINR, 28163-6, CMP, 02482-0, 38511-9 #### [facility] ([id number]) [address] [place] [address] 82650 SARS/FLU A+B/RS[facility] SARS/FLU A+B/RSV by NAAT/Molecular FLU A [...] operators who are performing tests using either GeneXpert DX or GeneXpert Infinity systems and is [...] repeat. Fact Sheet for Healthcare Providers: https://www.fda.gov/ media/420287/downloa d Fact Sheet for Patients: https://www.fda.gov/ media/898136/downloa d [facility] Comment on above: Performed By: #### C BCA, PINR, 90845-1, [facility], 31000-4, 16819-0 #### [facility] ([id number]) [address] [place] [address] [id number] XR CHEST 1 VWon 08-05-2024 XR CHEST [...] Dwight Velez MD on 08/05/2024 5:42 PM Normal [facility] CBC AND AUTO DIFFon 07-30-19 25 ABSOLUTE BASOPHIL 0.2 X10E9/L Normal 0.0-0.2 [facility] Comment on above: Performed By: #### C BCA, PINR, 69266-0, CMP, 32242-2, 40488-9 #### [facility] ([id number]) [address] [place] [address] 52930 ABSOLUTE NEUTROPHIL 4.4 X10E9/L Normal 1.5-6.6 [facility] Comment on above: Performed By: #### C BCA, PINR, 56529-2, CMP, 61608-6, 93531-2 #### [facility] ([id number]) [address] [place] [address] 77143 Basophils/100 WBC (Bld) 2.4 % Normal [facility] Comment on above: Performed By: #### C BCA, PINR, 28240-8, CMP, 22305-9, 70448-1 #### [facility] ([id number]) [address] [place] [address] 58421 Eosinophils (Bld) [#/Vol] 0.3 10*3/uL Normal 0.0-0.4 [facility] Comment on above: Performed By: #### C BCA, PINR, 41362-9, CMP, 71410-0, 91554-7 #### [facility] ([id number]) [address] [place] [address] 41766 Eosinophils/100 WBC (Bld) 4.0 % Normal [facility] Comment on above: Performed By: #### C BCA, PINR, 33100-6, CMP, 29918-5, 64012-6 #### [facility] ([id number]) [address] [place] [address] 03002 Erythrocyte distribution width (RBC) [Ratio] 14.0 % Normal 11.5-15.0 [facility] Comment on above: Performed By: #### C BCA, PINR, 88210-5, CMP, 71653-8, 77543-9 #### [facility] ([id number]) [address] [place] [address] 23040 Hematocrit (Bld) [Volume fraction] 39.0 % Normal 39-49 [facility] Comment on above: Performed By: #### C BCA, PINR, 68400-5, CMP, 61649-6, 44250-5 #### [facility] ([id number]) [address] [place] [address] 62208 Hemoglobin (Bld) [Mass/Vol] 13.3 g/dL Normal 13.0-17.0 [facility] Comment on above: Performed By: #### C BCA, PINR, 29646-4, CMP, 24236-3, 30305-2 #### [facility] ([id number]) [address] [place] [address] 21980 Lymphocytes (Bld) [#/Vol] 1.1 10*3/uL Normal 1.0-3.5 [facility] Comment on above: Performed By: #### C BCA, PINR, 64304-5, CMP, 78014-7, 41114-0 #### [facility] ([id number]) [address] [place] [address] 38442 Lymphocytes/100 WBC (Bld) 16.4 % Normal [facility] Comment on above: Performed By: #### C BCA, PINR, 71960-1, CMP, 10157-9, 58878-8 #### [facility] ([id number]) [address] [place] [address] 63928 MCH (RBC) [Entitic mass] 31.3 pg Normal 27-34 [facility] [facility] Comment on above: Performed By: #### C BCA, PINR, 53073-2, CMP, 21724-7, 62391-6 #### [facility] ([id number]) [address] [place] [address] 22103 MCHC (RBC) [Mass/Vol] 34.0 g/dL Normal 32-36 [facility] Comment on above: Performed By: #### C BCA, PINR, 57173-9, CMP, 34159-7, 47103-7 #### [facility] ([id number]) [address] [place] [address] 97629 MCV (RBC) [Entitic vol] 92 fL Normal 80-100 P [facility] Comment on above: Performed By: #### C BCA, PINR, 64737-6, CMP, 24031-0, 47194-1 #### [facility] ([id number]) [address] [place] [address] 37249 Monocytes (Bld) [#/Vol] 0.7 10*3/uL Normal 0-0.9 [facility] Comment on above: Performed By: #### C BCA, PINR, 32330-4, CMP, 71530-8, 84656-4 #### [facility] ([id number]) [address] [place] [address] 74554 Monocytes/100 WBC (Bld) 10.0 % Normal [facility] Comment on above: Performed By: #### C BCA, PINR, 69530-3, CMP, 81956-4, 24706-7 #### [facility] ([id number]) [address] [place] [address] 95077 Neutrophils/100 WBC (Bld) 67.2 % Normal [facility] Comment on above: Performed By: #### C BCA, PINR, 95511-1, CMP, 84745-6, 69785-0 #### [facility] ([id number]) [address] [place] [address] 75227 Platelet mean volume (Bld) [Entitic vol] 8.4 fL Normal 7-12 [facility] Comment on above: Performed By: #### C BCA, PINR, 49013-9, CMP, 85305-6, 34169-0 #### [facility] ([id number]) [address] [place] [address] 04976 Platelets (Bld) [#/Vol] 242 10*3/uL Normal 150-450 [facility] Comment on above: Performed By: #### C BCA, PINR, 94866-9, CMP, 03619-5, 33032-8 #### [facility] ([id number]) [address] [place] [address] 94557 RBC COUNT 4.24 X10E12/L Normal 4.10-5.70 [facility] Comment on above: Performed By: #### C BCA, PINR, 56527-7, CMP, 85453-5, 49254-7 #### [facility] ([id number]) [address] [place] [address] 96756 WBC (Bld) [#/Vol] 6.5 10*3/uL Normal 4.0-11.0 [facility] Comment on above: Performed By: #### C BCA, PINR, 43552-5, CMP, 14821-1, 69630-2 #### [facility] ([id number]) [address] [place] [address] 89185 COMPREHENSIVE METABOLIC PANE Tim 07-30-2024 Albumin [Mass/Vol] 3.7 g/dL Normal 3.2-5.3 [facility] Comment on above: Performed By: #### C BCA, PINR, 51746-8, CMP, 98003-3, 11279-0 #### [facility] ([id number]) [address] [place] [address] 81776 ALP [Catalytic activity/Vol] 103 U/L Normal 39-130 [facility] Comment on above: Performed By: #### C BCA, PINR, 94447-4, CMP, 38787-7, 05445-9 #### [facility] ([id number]) [address] [place] [address] 89626 ALT [Catalytic activity/Vol] 21 U/L Normal 0-40 [facility] Comment on above: Performed By: #### C BCA, PINR, 55865-5, CMP, 11197-9, 93619-8 #### [facility] ([id number]) [address] [place] [address] 13567 Anion gap [Moles/Vol] 10 mmol/L Normal 5-15 [facility] Comment on above: Performed By: #### C BCA, PINR, 29340-5, CMP, 14951-4, 66952-3 #### [facility] ([id number]) [address] [place] [address] 35586 AST [Catalytic activity/Vol] 20 U/L Normal 0-41 [facility] Comment on above: Performed By: #### C BCA, PINR, 92346-3, CMP, 35407-5, 45819-1 #### [facility] ([id number]) [address] [place] [address] 48071 Bilirubin [Mass/Vol] 0.5 mg/dL Normal 0.3-1.2 [facility] Comment on above: Performed By: #### C BCA, PINR, 14597-6, CMP, 99416-4, 37547-1 #### [facility] ([id number]) [address] [place] [address] 11478 Calcium [Mass/Vol] 8.4 mg/dL Low 8.5-10.5 [facility] Comment on above: Performed By: #### C BCA, PINR, 09407-2, CMP, 01333-8, 70669-3 #### [facility] ([id number]) [address] [place] [address] 08687 Chloride [Moles/Vol] 104 mmol/L Normal 98-109 [facility] Comment on above: Performed By: #### C BCA, PINR, 56191-9, CMP, 37081-3, 61737-9 #### [facility] ([id number]) [address] [place] [address] 84622 CO2 [Moles/Vol] 23 mmol/L Normal 22-32 [facility] Comment on above: Performed By: #### C BCA, PINR, 52400-4, CMP, 86168-0, 19038-3 #### [facility] ([id number]) [address] [place] [address] 54779 Creatinine [Mass/Vol] 1.13 mg/dL Normal 0.70-1.20 [facility] Comment on above: Result Comment: METH OD TRACEABLE TO IDMS STANDARD Performed By: #### C BCA, PINR, 54994-8, CMP, 74597-1, 59801-5 #### [facility] ([id number]) [address] [place] [address] 47732 GFR/1.73 sq M.predicted among non-blacks MDRD (S/P/Bld) [Vol rate/Area] 63 mL/min/{1.73_m2} Normal >59 [facility] Comment on above: Result Comment: Reported eGFR is based on the CKD-EPI 1 equation that does not use a race coefficient. Performed By: #### C BCA, PINR, 52419-8, CMP, 19100-1, 55850-9 #### [facility] ([id number]) [address] [place] [address] 83368 Glucose [Mass/Vol] 100 mg/dL High 65-99 [facility] Comment on above: Performed By: #### C BCA, PINR, 16030-5, CMP, 92935-7, 49422-1 #### [facility] ([id number]) [address] [place] [address] 04060 Potassium [Moles/Vol] 4.1 mmol/L Normal 3.5-5.0 [facility] Comment on above: Performed By: #### C BCA, PINR, 18319-9, CMP, 00997-3, 80144-1 #### [facility] ([id number]) [address] [place] [address] 74822 Protein [Mass/Vol] 6.3 g/dL Normal 6.0-8.0 [facility] Comment on above: Performed By: #### C BCA, PINR, 11187-8, CMP, 20831-7, 46148-9 #### [facility] ([id number]) [address] [place] [address] 70050 Sodium [Moles/Vol] 137 mmol/L Normal 134-146 [facility] Comment on above: Performed By: #### C BCA, PINR, 07405-2, CMP, 27337-9, 69026-8 #### [facility] ([id number]) [address] [place] [address] 35641 Urea nitrogen [Mass/Vol] 25 mg/dL Normal 5-27 [facility] Comment on above: Performed By: #### C BCA, PINR, 00698-7, CMP, 22874-4, 89693-2 #### [facility] ([id number]) [address] [place] [address] ABDOMEN AND PELVIS WO CON Ton [...] Jernigan MD on 07/30/2024 1:05 AM Normal [facility] CT BRAIN WO CONTon CT BRAIN WO CONT CT BRAIN WO [...] Jernigan MD on 07/30/2024 12:51 AM Normal [facility] CT CERVICAL SPINE WO CONTon 07-30-2024 [...] Jernigan MD on 07/30/2024 12:57 AM Normal [facility] CT CHEST WO CONTon CT CHEST WO CONT CT CHEST WO [...] Jernigan MD on 07/30/2024 1:01 AM Normal [facility] Lactate (P maximino) [Moles/Vol]o n 07-30-2024 LACTATE W/REFLEX 1.5 mmol/L Normal 0.4-2.0 [facility] Comment on above: Result Comment: Result did not trigger repeat Lactate, re-order if needed. Performed By: #### 3 2133-1 #### [facility] ([id number]) [address] [place] [address] 25439 Natriuretic peptide B [Mass/ Vol]on 07-30-2024 Natriuretic peptide B (Bld) [Mass/Vol] 20 pg/mL Normal <100.0 [facility] Comment on above: Performed By: #### C BCA, PINR, 34499-2, CMP, 78774-8, 30631-0 #### [facility] ([id number]) [address] [place] [address] 86370 PROTIME AND INRon 07-30-2024 INR Coag (PPP) [Relative time] 1.0 {INR} Normal 0.8-1.1 [facility] Comment on above: Performed By: #### C BCA, PINR, 02018-3, CMP, 13934-5, 23454-4 #### [facility] ([id number]) [address] [place] [address] 56182 PT Coag (PPP) [Time] 11.2 s Normal 9.8-13.2 [facility] Comment on above: Result Comment: NEW REFERENCE RANGE Performed By: #### C BCA, PINR, 26388-7, CMP, 51766-4, 61177-9 #### [facility] ([id number]) [address] [place] [address] [place] [address] Troponin I.cardiac High sens itivity method [Mass/Vol]on 07-30-2024 1 HOUR TROP I, HIGH SENSITIVITY 4 ng/L Normal <21 [facility] Comment on above: Performed By: #### C BCA, PINR, 90975-2, CMP, 23194-5, 72233-2 #### [facility] ([id number]) [address] [place] [address] [place] [address] TROPONIN I, HIGH SENSITIVITY 4 ng/L Normal <21 [facility] Comment on above: Performed By: #### C BCA, PINR, 76625-2, CMP, 01929-6, 35876-7 #### [facility] ([id number]) [address] [place] [address] 33218 aPTT Coag (PPP) [Time]on aPTT Coag (Bld) [Time] 28 s Normal 26-37 [facility] Comment on above: Result Comment: NEW REFERENCE RANGE Performed By: #### C BCA, PINR, 93155-3, CMP, 44359-1, 95255-7 #### [facility] ([id number]) [address] [place] [address] [place] [address] Steffen 06-14-2024 CNPN Telephone ([facility]) DERRICK MONAE ([id number]) 1935 M Date Time Provider Department 06/14/24 PREET OLIVA During your visit today, we recorded the following information about you: Hanny Quintanilla 06/14/2024 3:16 PM Signed Saeble from patient's PCP's office called asking if patient should be taking Namenda. Is currently not taking it. Please call [phone] Tiarra Best RN 06/15/2024 10:12 AM Signed [...] Fully Assessed Reason for Visit: Patient Question [6726] Prescriptions as of 06/15/2024 - memantine (NAMENDA) 10 mg tablet Take 1 tablet by mouth two times a day. - albuterol HFA (PROVENTIL HFA, VENTOLIN HFA) 90 mcg/actuation inhaler Inhale 2 Puffs as instructed every 4 hours as needed. - fluticasone (FLONASE) 50 mcg/actuation nasal spray Use 1 Kidder in the nose once daily. - loratadine-pseudoeph [...] Encounter Status:Closed by TIARRA BEST on 06/15/24 [facility] Steffen 05-04-2024 [facility] DERRICK MONAE ([id number]) 1935 M Date Time Provider Department 05/04/24 [...] falling over more. Please review and advise. [phone] -IN Amalia Albarran RN 05/04/2024 3:38 PM [...] (FLONASE) 50 mcg/actuation nasal spray Use 1 Kidder in the nose once daily. - loratadine-pseudoeph [...] Encounter Status:Closed by AMALIA ALBARRAN on 05/04/24 [facility] Giulia 04-30-2024 KVNG Office Visit ([facility]) DERRICK MONAE ([id number]) 1935 M Date Time Provider Department 04/30/24 [...] September. He got really confused at a [employer]. He had no idea where they were. Another time at a graduation republican he thought they already went there. Has [...] as well. 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 There was [...] Activities of Daily Living [place] in Activities of Daily Living (A.D.L.) Bathing: [...] POINT) Feed (more content not included)... Normal [facility] MR Brain WO contraston 02-14 * * [...] dementia protocol and 3-D post-processing using the Mark43 software at an independent workstation with concurrent [...] also Mando 2010). DIVISION OF RADIOLOGY Provider, [facility] [place] - 02/15/2024 * * *Final Report* * * DATE OF EXAM: Feb 15 2024 12:15PM [facility] 3015 - MRI BRAIN W QUANT WO [...] results from the analysis charts for details. Junior Systems Engineer: MAURIZIO Transcribe Date/Time: Feb 15 2024 12:17P D (more content not included)... [facility] MR Unspecified body region 3 D post [...] dementia protocol and 3-D post-processing using the Mark43 software at an independent workstation with concurrent [...] also Mando 2010). DIVISION OF RADIOLOGY Provider, [facility] [place] - 02/15/2024 * * *Final Report* * * DATE OF EXAM: Feb 15 2024 12:15PM [facility] 0280 - MRI 3D POST PROCESSING / [...] dementia protocol and 3-D post-processing using the Mark43 software at an independent workstation with concurrent [...] Not applicable Age related white matter changes (COW) rating: White matter lesions: 1 Basal ganglia [...] results from the analysis charts for details. Junior Systems Engineer: MAURIZIO Transcribe Date/Time: Feb 15 2024 12:17P Dicta (more content not included)... [facility] MRI 3D POST PROCESSINGon MRI 3D POST PROCESSING * * *Final Report * * * DATE OF EXAM: Feb 15 2024 12:15PM [facility] 0280 - MRI 3D POST PROCESSING / [...] dementia protocol and 3-D post-processing using the Mark43 software at an independent workstation with concurrent [...] results from the analysis charts for details. Junior Systems Engineer: MAURIZIO Transcribe Date/Time: Feb 15 2024 12:17P Dictated by : NIMO LANGFORD MD This examination was interpreted and the report reviewed and electronically signed by: NIMO LANGFORD MD on Feb 15 2024 12:55PM EST [id number] (more content not included)... Normal [facility] MRI BRAIN W QUANT WO IVCONon 02-15-2024 MRI BRAIN W QUANT WO IVCON * * *Final Report* * * DATE OF EXAM: Feb 15 2024 12:15PM [facility] 3015 - MRI BRAIN W QUANT WO [...] dementia protocol and 3-D post-processing using the Mark43 software at an independent workstation with concurrent [...] results from the analysis charts for details. Junior Systems Engineer: MAURIZIO Transcribe Date/Time: Feb 15 2024 12:17P Dictated by : NIMO LANGFORD MD This examination was interpreted and the report reviewed and electronically signed by: NIMO LANGFORD MD on Feb 15 2024 12:55PM EST [id number] (more content not included)... Normal [facility] No Panel Informationon 02-14 IMPRESSION: * No [...] results from the analysis charts for details. Junior Systems Engineer: MAURIZIO Transcribe Date/Time: Feb 15 2024 12:17P Dictated by : NIMO LANGFORD MD This examination was interpreted and the report reviewed and electronically signed by: NIMO LANGFORD MD on Feb 15 2024 12:55PM [facility] DIVISION OF RADIOLOGY Radiology Study observation (narrative) [facility] No Panel InformationOrdered By: Ccf Provider on 02-15-[address] [facility] CNOVon 01-23-2024 CNOV Office Visit (ISMAEL) DERRICK MONAE ([id number]) 1935 M Date Time Provider Department 01/23/24 10:00 AM PREET OLIVA During your visit today, we recorded the following information about you: Pulse Blood pressure Weight 55/minute 158/70 72.6 kg Ewa Monae OCCA 01/23/2024 10:10 AM Signed Derrick Owen Lorna is a 88 year old year old right handed man Accompanied by: spouse and son. 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 Patient is [place] he don't know why he here. His made the appointment she stated he is forgetful. Vital Signs: BP 158/70 Pulse (!) 55 Wt 72.6 kg (160 lb 1.6 oz) BMI 25.84 kg/m? Preet castro 01/23/2024 1:22 PM Signed Reason for Referral: [...] September. He got really confused at a [employer]. He had no idea where they were. Another time at a graduation republican he thought they already went there. Has [...] as well. 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 There was [...] Activities of Daily Living [place] in Activities of Daily Living (A.D.L.) Bathing: [...] a CT (more content not included)... Normal [facility] No Panel Informationon 01-22 Interpretation and review of laboratory results Normal [facility] THYROID STIMULATING HORMONEo n 01-23-2024 TSH Qn 1.620 m[IU]/L [facility] TSH SerPl-aCncon 01-23-2024 TSH Qn 1.620 m[IU]/L Normal 0.270-4.200 [facility] Comment on above: Order Comment: Speci men Type: BLOOD SPECIMEN Ordering Facility: [facility] Address: [address] [place] [address] Performed By: #### 3 016-3, 2132-03 #### [facility] CLIA [id number] [address] [place] [address] [place] VITAMIN B12on 01-23-2024 Cobalamin (Vitamin B12) [Mass/Vol] 500 pg/mL 232 - 1245 pg/mL [facility] Vit B12 SerPl-mCncon 024 Cobalamin (Vitamin B12) [Mass/Vol] 500 pg/mL Normal 232-1245 [facility] Comment on above: Order Comment: Speci men Type: BLOOD SPECIMEN Ordering Facility: [facility] Address: [address] [place] [address] Performed By: #### 3 016-3, 2132-03 #### [facility] CLIA [id number] [address] [place] [address] [place] CBC AUTO DIFFon 10-01-2021 BASO # 0.1 103/ul Normal 0.0-0.1 [facility] Comment on above: Performed By: #### C BC #### [facility] [address] [place] [address] Dr. Mazin Davila Basophils/100 WBC (Bld) 1.3 % Normal 0.2-2.0 [facility] Comment on above: Performed By: #### C BC #### [facility] [address] [place] [address] Dr. Mazin Davila EO # 0.3 103/ul Normal 0.0-0.7 [facility] Comment on above: Performed By: #### C BC #### [facility] [address] [place] [address] Dr. Mazin Davila Eosinophils/100 WBC (Bld) 4.3 % Normal 0.9-7.0 [facility] Comment on above: Performed By: #### C BC #### [facility] [address] [address] [address] Mazin Davila Erythrocyte distribution width (RBC) [Ratio] 13.6 % Normal 11.0-15.0 [facility] Comment on above: Performed By: #### C BC #### [facility] [address] [place] [address] Dr. Mazin Davila Hematocrit (Bld) [Volume fraction] 45.4 % Normal 42.0-54.0 [facility] Comment on above: Performed By: #### C BC #### [facility] [address] [place] [address] Dr. Mazin Davila Hemoglobin (Bld) [Mass/Vol] 14.4 g/dL Normal 14.0-18.0 [facility] Comment on above: Performed By: #### C BC #### [facility] [address] [place] [address] Dr. Mazin Davila IG # 0.03 10e3/ul Normal 0.00-0.03 [facility] Comment on above: Performed By: #### C BC #### [facility] [address] [place] [address] Dr. Mazin Davila IG % 0.4 % Normal 0.0-0.5 [facility] Comment on above: Performed By: #### C BC #### [facility] [address] [place] [address] Dr. Mazin Davila LYMPH # 1.2 103/ul Normal 1.2-3.8 [facility] Comment on above: Performed By: #### C BC #### [facility] [address] [place] [address] Dr. Mazin Davila Lymphocytes/100 WBC (Bld) 15.1 % Critically low 20.5-60.0 [facility] Comment on above: Performed By: #### C BC #### [facility] [address] [place] [address] Dr. Mazin Davila MANUAL DIFF REQ NO Normal [facility] Comment on above: Performed By: #### C BC #### [facility] [address] [place] [address] Dr. Mazin Davila MCH (RBC) [Entitic mass] 30.4 pg Normal 25.9-34.0 [facility] Comment on above: Performed By: #### C BC #### [facility] [address] [place] [address] Dr. Mazin Davila MCHC (RBC) [Mass/Vol] 31.7 g/dL Normal 29.9-35.2 [facility] Comment on above: Performed By: #### C BC #### [facility] [address] [place] [address] Dr. Mazin Davila MCV (RBC) [Entitic vol] 96.0 fL Critically high 80.0-94 .0 [facility] Comment on above: Performed By: #### C BC #### [facility] [address] [place] [address] Dr. Mazin Davila MONO # 0.6 103/ul Normal 0.3-0.8 [facility] Comment on above: Performed By: #### C BC #### [facility] [address] [place] [address] Dr. Mazin Davila Monocytes/100 WBC (Bld) 7.6 % Normal 1.7-12.0 [facility] Comment on above: Performed By: #### C BC #### [facility] [address] [place] [address] Dr. Mazin Davila NEUT # 5.5 103/ul Normal 1.4-6.5 [facility] Comment on above: Performed By: #### C BC #### [facility] [address] [place] [address] Dr. Mazin Davila Neutrophils/100 WBC (Bld) 71.3 % Normal 43.0-75.0 [facility] Comment on above: Performed By: #### C BC #### [facility] [address] [place] [address] Dr. Mazin Davila Platelet mean volume (Bld) [Entitic vol] 10.2 fL Normal 9.5-13.5 [facility] Comment on above: Performed By: #### C BC #### [facility] [address] [place] [address] Dr. Mazin Davila PLT 314 103/ul Normal 150-450 [facility] Comment on above: Performed By: #### C BC #### [facility] [address] [place] [address] Dr. Mazin Davila RBC 4.73 106/ul Normal 4.70-6.10 [facility] Comment on above: Performed By: #### C BC #### [facility] [address] [place] [address] Dr. Mazin Davila WBC 7.7 103/ul Normal 4.0-11.0 [facility] Comment on above: Performed By: #### C BC #### [facility] [address] [place] [address] Dr. Mazin Davila PROF CHEM 8 (BAS METB)on Anion gap [Moles/Vol] 11.7 mmol/L Normal [facility] Comment on above: Performed By: #### B MP #### [facility] [address] [place] [address] Dr. Mazin Davila Calcium [Mass/Vol] 8.6 mg/dL Normal 8.5-10.1 [facility] Comment on above: Performed By: #### B MP #### [facility] [address] [place] [address] Dr. Mazin Davila Chloride [Moles/Vol] 107 mmol/L Normal 98-107 [facility] Comment on above: Performed By: #### B MP #### [facility] [address] [place] [address] Dr. Mazin Davila CO2 [Moles/Vol] 26.8 mmol/L Normal 22.0-30.0 [facility] Comment on above: Performed By: #### B MP #### [facility] [address] [place] [address] Dr. Mazin Davila Creatinine [Mass/Vol] 1.13 mg/dL Normal 0.66-1.25 [facility] Comment on above: Performed By: #### B MP #### [facility] [address] [place] [address] Dr. Mazin Davila EGFR-AF MAURITIAN >60 Normal >=60 [facility] Comment on above: Performed By: #### B MP #### [facility] [address] [address] [address] Mazin Davila EGFR-NON AF MAURITIAN >60 Normal >=60 [facility] Comment on above: Performed By: #### B MP #### [facility] [address] [address] [address] Mazin Dvaila Glucose [Mass/Vol] 92 mg/dL Normal 74-106 [facility] Comment on above: Performed By: #### B MP #### [facility] [address] [address] [address] Mazin Davila Potassium [Moles/Vol] 4.5 mmol/L Normal 3.4-5.0 [facility] Comment on above: Performed By: #### B MP #### [facility] [address] [address] [address] Mazin Davila Sodium [Moles/Vol] 141 mmol/L Normal 137-145 [facility] Comment on above: Performed By: #### B MP #### [facility] [address] [address] [address] Mazin Davila Urea nitrogen [Mass/Vol] 26.0 mg/dL Critically high 7.0-18.0 [facility] Comment on above: Performed By: #### B MP #### [facility] [address] [address] [address] Mazin Davila Urea nitrogen/Creatinine [Mass ratio] 23.0 mg/mg Normal [facility] Comment on above: Performed By: #### B MP #### [facility] [address] [address] [address] Mazin Davila Vital Signs Date Time Vital Sign Value Performing Clinician Krystle morel 02-26-2025 08:09-0400 Diastolic blood pressure 91 mm[Hg] Ashley Elizondo UNIVERSITY PROFESSOR-C Work Phone: [facility] 02-26-2025 08:09-0400 Heart rate 73 /min Ashley Elizondo UNIVERSITY PROFESSOR-C Work Phone: [facility] 02-26-2025 08:09-0400 Respiratory rate 14 /min Ashley Elizondo UNIVERSITY PROFESSOR-C Work Phone: [facility] 02-26-2025 08:09-0400 SaO2% (BldA) [Mass fraction] 95 % Ashley Elizondo UNIVERSITY PROFESSOR-C Work Phone: [facility] 02-26-2025 08:09-0400 Systolic blood pressure 170 mm[Hg] Ashley Elizondo UNIVERSITY PROFESSOR-C Work Phone: [facility] 02-26-2025 06:00-0400 Body weight 64.3 kg Ashley Elizondo UNIVERSITY PROFESSOR-C Work Phone: [facility] 02-26-2025 03:45-0400 Body temperature 97.7 [degF] Ashley Elizondo UNIVERSITY PROFESSOR-C Work Phone: [facility] 02-24-2025 12:15-0400 Body height 167.64 cm Ashley Elizondo UNIVERSITY PROFESSOR-C Work Phone: [facility] 12-16-2024 13:27-0400 Body height 167.6 cm Dion Frazeir MD Work Phone: [facility] 12-16-2024 13:27-0400 Body mass index (BMI) [Ratio] 24.21 kg/m2 Dion Frazier MD Work Phone: [facility] 12-16-2024 13:27-0400 Body temperature 97.11 [degF] Dion Frazier MD Work Phone: [facility] 12-16-2024 13:27-0400 Body weight 68.04 kg Dion Frazier MD Work Phone: [facility] 12-16-2024 13:27-0400 Diastolic blood pressure 64 mm[Hg] Dion Frazier MD Work Phone: [facility] 12-16-2024 13:27-0400 Heart rate 87 /min Dion Frazier MD Work Phone: [facility] 12-16-2024 13:27-0400 Respiratory rate 20 /min Dion Frazier MD Work Phone: [facility] 12-16-2024 13:27-0400 SaO2% (BldA) [Mass fraction] 98 % Dion Frazier MD Work Phone: [facility] 12-16-2024 13:27-0400 Systolic blood pressure 130 mm[Hg] Dion Frazier MD Work Phone: [facility] 10-07-2024 12:51-0400 Body mass index (BMI) [Ratio] 24.78 kg/m2 Margarita Loughrin PA-C Work Phone: [facility] 10-07-2024 12:51-0400 Body weight 69.63 kg Ackerly Loughrin PA-C Work Phone: [facility] 10-07-2024 12:51-0400 Diastolic blood pressure 91 mm[Hg] Ackerly Loughrin PA-C Work Phone: [facility] 10-07-2024 12:51-0400 Heart rate 115 /min Margarita Loughrin PA-C Work Phone: [facility] 10-07-2024 12:51-0400 Systolic blood pressure 129 mm[Hg] Margarita Loughrin PA-C Work Phone: [facility] 09-14-2024 15:01-0500 Body height 167.6 cm Dion Frazier MD Work Phone: [facility] 09-14-2024 15:01-0500 Body mass index (BMI) [Ratio] 24.86 kg/m2 Dion Frazier MD Work Phone: [facility] 09-14-2024 15:01-0500 Body temperature 97.5 [degF] Dion Frazier MD Work Phone: [facility] 09-14-2024 15:01-0500 Body weight 69.85 kg Dion Frazier MD Work Phone: [facility] 09-14-2024 15:01-0500 Diastolic blood pressure 70 mm[Hg] Dion Frazier MD Work Phone: [facility] 09-14-2024 15:01-0500 Heart rate 69 /min Dion Frazier MD Work Phone: [facility] 09-14-2024 15:01-0500 Respiratory rate 22 /min Dion Frazier MD Work Phone: [facility] 09-14-2024 15:01-0500 SaO2% (BldA) [Mass fraction] 97 % Dion Frazier MD Work Phone: [facility] 09-14-2024 15:01-0500 Systolic blood pressure 130 mm[Hg] Dion Frazier MD Work Phone: [facility] 08-05-2024 15:02-0500 Body height 167.6 cm Ashley Elizondo UNIVERSITY PROFESSOR Work Phone: [facility] 08-05-2024 15:02-0500 Body mass index (BMI) [Ratio] 25.18 kg/m2 Ashley Elizondo UNIVERSITY PROFESSOR Work Phone: [facility] 08-05-2024 15:02-0500 Body temperature 97.59 [degF] Ashley Elizondo UNIVERSITY PROFESSOR Work Phone: [facility] 08-05-2024 15:02-0500 Body weight 70.76 kg Ashley Elizondo UNIVERSITY PROFESSOR Work Phone: [facility] 08-05-2024 15:02-0500 Diastolic blood pressure 76 mm[Hg] Ashley Elizondo UNIVERSITY PROFESSOR Work Phone: [facility] 08-05-2024 15:02-0500 Heart rate 104 /min Ashley Elizondo UNIVERSITY PROFESSOR Work Phone: [facility] 08-05-2024 15:02-0500 Respiratory rate 18 /min Ashley Elizondo UNIVERSITY PROFESSOR Work Phone: [facility] 08-05-2024 15:02-0500 SaO2% (BldA) [Mass fraction] 94 % Ashley Elizondo UNIVERSITY PROFESSOR Work Phone: [facility] 08-05-2024 15:02-0500 Systolic blood pressure 138 mm[Hg] Ashley Elizondo UNIVERSITY PROFESSOR Work Phone: [facility] 07-19-2024 13:02-0500 Body height 167.6 cm Ashley Elizondo UNIVERSITY PROFESSOR Work Phone: [facility] 07-19-2024 13:02-0500 Body mass index (BMI) [Ratio] 24.69 kg/m2 Ashley Elizondo UNIVERSITY PROFESSOR Work Phone: [facility] 07-19-2024 13:02-0500 Body temperature 98.2 [degF] Ashley Elizondo UNIVERSITY PROFESSOR Work Phone: [facility] 07-19-2024 13:02-0500 Body weight 69.4 kg Ashley Elizondo UNIVERSITY PROFESSOR Work Phone: [facility] 07-19-2024 13:02-0500 Diastolic blood pressure 76 mm[Hg] Ashley Elizondo UNIVERSITY PROFESSOR Work Phone: [facility] 07-19-2024 13:02-0500 Respiratory rate 18 /min Ashley Elizondo UNIVERSITY PROFESSOR Work Phone: [facility] 07-19-2024 13:02-0500 Systolic blood pressure 128 mm[Hg] Ashley Elizondo UNIVERSITY PROFESSOR Work Phone: [facility] 05-27-2024 11:28-0500 Body height 167.6 cm Ashley Elizondo UNIVERSITY PROFESSOR Work Phone: [facility] 05-27-2024 11:28-0500 Body mass index (BMI) [Ratio] 25.11 kg/m2 Ashley Elizondo UNIVERSITY PROFESSOR Work Phone: [facility] 05-27-2024 11:28-0500 Body temperature 97.7 [degF] Ashley Daviespatrick UNIVERSITY PROFESSOR Work Phone: [facility] 05-27-2024 11:28-0500 Body weight 70.58 kg Ashley Elizondo UNIVERSITY PROFESSOR Work Phone: [facility] 05-27-2024 11:28-0500 Diastolic blood pressure 78 mm[Hg] Ashley Elizondo UNIVERSITY PROFESSOR Work Phone: [facility] 05-27-2024 11:28-0500 Heart rate 77 /min Ashley Elizondo UNIVERSITY PROFESSOR Work Phone: [facility] 05-27-2024 11:28-0500 SaO2% (BldA) [Mass fraction] 90 % Ashley Elizondo UNIVERSITY PROFESSOR Work Phone: [facility] 05-27-2024 11:28-0500 Systolic blood pressure 138 mm[Hg] Ashley Elizondo UNIVERSITY PROFESSOR Work Phone: [facility] 04-30-2024 11:25-0400 Body height 167.6 cm Preet Doher DO Work Phone: [facility] 04-30-2024 11:25-0400 Body mass index (BMI) [Ratio] 25.82 kg/m2 Preet Doher DO Work Phone: [facility] 04-30-2024 11:25-0400 Body weight 72.58 kg Preet Doher DO Work Phone: [facility] 04-30-2024 11:25-0400 Diastolic blood pressure 73 mm[Hg] Preet Doher DO Work Phone: [facility] 04-30-2024 11:25-0400 Heart rate 66 /min Preet Doher DO Work Phone: [facility] 04-30-2024 11:25-0400 Systolic blood pressure 155 mm[Hg] Preet Oliva DO Work Phone: [facility] 01-23-2024 10:06-0400 Body mass index (BMI) [Ratio] 25.84 kg/m2 Preet Do DO Work Phone: [facility] 01-23-2024 10:06-0400 Body weight 72.62 kg Preet Do DO Work Phone: [facility] 01-23-2024 10:06-0400 Diastolic blood pressure 70 mm[Hg] Preet Do DO Work Phone: [facility] 01-23-2024 10:06-0400 Heart rate 55 /min Preet Do DO Work Phone: [facility] 01-23-2024 10:06-0400 Systolic blood pressure 158 mm[Hg] Preet Oliva DO Work Phone: [facility] Encounters Encounter Date Encounter Type Care Provider Facility Start: 02-24-2025 Non-patient / Non-visit Asher valverde DO -[facility] Work Phone: Start: 02-24-2025 End: 02-26-2025 Evaluation and management of inpatient Temo Maite Facility:[facility] Start: 02-12-2025 End: 02-12-2025 ambulatory [facility] Start: 02-09-2025 End: 02-11-2025 ambulatory [facility] Start: 02-09-2025 Encounter for other preprocedural examination GRISELDA Lockhart [facility] Start: 01-05-2025 End: 01-05-2025 Telephone encounter Margarita Arevalo PA-C Work Phone: Neurology Comment on above: Appointment (Left vo icemail regarding scheduling follow up with Margarita in 3 months (Mar 2025), and new consult with Virginia Camacho, the [facility] social services specialist, scheduling number included for call back.) Start: 01-04-2025 End: 01-04-2025 Telemedicine consultation with patient Margarita Irina ROLLE Work Phone: Neurology Start: 01-04-2025 End: 01-04-2025 ambulatory Margarita Irina ROLLE Work Phone: Neurology Comment on above: Alzheimer's disease (HCC) (Primary Dx); Probable Alzheimer's disease - LATE ONSET (> 65 years) [331.0AS] Start: 12-16-2024 End: 12-16-2024 Bamboo flowsheet Dion Frazier MD Work Phone: [facility] Start: 12-16-2024 End: 12-16-2024 [employer] Dion Frazier MD Work Phone: [facility] Start: 12-16-2024 End: 12-16-2024 Office outpatient visit 25 minutes Dion Frazier MD Work Phone: [facility] Comment on above: Primary hypertension (CMS/HCC) (Primary Dx); Moderate persistent asthma without complication (CMS/HCC); Alzheimer's dementia with mood disturbance, unspecified dementia severity, unspecified timing of dementia onset (CMS/HCC); 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 (CMS/HCC) Start: 12-16-2024 End: 12-16-2024 ambulatory DION FRAZIER Not Available Start: 10-07-2024 End: 10-07-2024 ambulatory MARGARITA AREVALO Facility:[facility] Start: 10-07-2024 End: 10-07-2024 Patient encounter procedure Margarita Irina ROLLE Work Phone: Neurology Comment on above: Alzheimer's disease (HCC) (Primary Dx) Start: 09-14-2024 End: 09-14-2024 Office outpatient visit 25 minutes Dion Frazier MD Work Phone: [facility] Comment on above: Primary hypertension (CMS/HCC) (Primary Dx); Moderate persistent asthma without complication (CMS/HCC); Alzheimer's dementia with mood disturbance, unspecified dementia severity, unspecified timing of dementia onset ([facility]/HCC); 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 ([facility]/HCC) Start: 09-14-2024 End: 09-14-2024 ambulatory DION FRAZIER Not Available Start: 09-14-2024 End: 09-14-2024 Bamboo flowsheet Dion Frazier MD Work Phone: [facility] Start: 09-14-2024 End: 09-14-2024 Bamboo flowsheet Dion Frazier MD Work Phone: [facility] Start: 08-05-2024 End: 08-05-2024 Emergency department patient visit [facility] Start: 08-05-2024 End: 08-05-2024 Office outpatient visit 10 minutes Ashley Elizondo UNIVERSITY PROFESSOR Work Phone: [facility] Comment on above: Upper respiratory in fection with cough and congestion (Primary Dx) Start: 08-05-2024 End: 08-05-2024 ambulatory ASHLEY ELIZONDO Not Available Start: 07-29-2024 End: 07-30-2024 [facility] Start: 07-19-2024 End: 07-19-2024 Bamboo flowsheet Ashley Elizondo UNIVERSITY PROFESSOR Work Phone: [facility] Start: 07-19-2024 End: 07-19-2024 Bamboo flowsheet Ashley Ariask UNIVERSITY PROFESSOR Work Phone: [facility] Start: 07-19-2024 End: 07-19-2024 Patient encounter procedure Ashley Elizondo UNIVERSITY PROFESSOR Work Phone: [facility] Comment on above: Medicare annual well ness visit, subsequent (Primary Dx) Start: 07-19-2024 End: 07-19-2024 ambulatory ASHLEY ELIZONDO Not Available Start: 07-15-2024 ambulatory ASHLEY ELIZONDO [facility] Start: 06-22-2024 End: 06-28-2024 Telephone encounter Hyun Elaine PT [facility] Comment on above: re: Missed PT Eval; fu (4x's w/ unable to contact.) Start: 06-21-2024 ambulatory SHAIKH RIGOBERTO [facility] Start: 06-16-2024 End: 06-21-2024 Telephone encounter Hyun Elaine PT [facility] Comment on above: PT for Alzheimer dem entia / freq falls Start: 06-15-2024 End: 06-15-2024 Orders Only Ashley Elizondo UNIVERSITY PROFESSOR Work Phone: [facility] Comment on above: Frequent falls (Prim efren Dx); Alzheimer's dementia with mood disturbance, unspecified dementia severity, unspecified timing of dementia onset ([facility]) Start: 06-14-2024 End: 06-15-2024 Telephone encounter Preet Oliva DO Work Phone: Neurology Comment on above: Patient Question Start: 05-27-2024 End: 05-27-2024 Bamboo flowsheet Ashley Ariask UNIVERSITY PROFESSOR Work Phone: [facility] Start: 05-27-2024 End: 05-27-2024 Bamboo flowsheet Ashley Gloriatrick UNIVERSITY PROFESSOR Work Phone: [facility] Start: 05-27-2024 End: 05-27-2024 Office outpatient visit 15 minutes Ashley Ariask UNIVERSITY PROFESSOR Work Phone: [facility] Comment on above: Frequent falls (Prim efren Dx) Start: 05-27-2024 End: 05-27-2024 ambulatory ASHLEY GLORIATRICK Not Available Start: 05-04-2024 End: 05-04-2024 Telephone encounter Margarita Arevalo PA-C Work Phone: Neurology Start: 04-30-2024 End: 04-30-2024 ambulatory PREET OLIVA Facility:[facility] Start: 04-30-2024 End: 04-30-2024 Office outpatient visit 40 minutes Preet Oliva DO Work Phone: Neurology Comment on above: 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, psychotic disturbance, mood disturbance, or anxiety (HCC) (Primary Dx) Start: 02-15-2024 End: 02-15-2024 ambulatory PREET OLIVA Facility:[facility] Start: 02-15-2024 End: 02-15-2024 Subsequent hospital visit by physician Mri 6 Radio Main Q (I-Stat/1.5t/3t) Work Phone: MRI Q Comment on above: 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, psychotic disturbance, mood disturbance, or anxiety (HCC) [G30.1, F02.A0] Start: 01-23-2024 End: 01-23-2024 ambulatory PREET OLIVA Facility:[facility] Start: 01-23-2024 End: 01-23-2024 Office outpatient new 60 minutes Preet Oliva DO Work Phone: Neurology Comment on above: 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, psychotic disturbance, mood disturbance, or anxiety (HCC) (Primary Dx) Start: 12-30-2023 End: 12-30-2023 ambulatory SHAIKH RIGOBERTO Not Available Start: 06-30-2023 Patient encounter procedure Ashley Elizondo UNIVERSITY PROFESSOR Work Phone: [facility] Start: 10-01-2021 End: 10-02-2021 ambulatory SHAIKH RIGOBERTO Facility: Procedures Date Procedure Procedure Detail Performing Clinician Start: 02-09-2025 Antibody screen SHAIKH RIGOBERTO Comment on above: Performed By: #### C BCA, PINR, [id number], CMP, [id number], [id number] #### [facility] ([id number]) [address] [place] [address], [place] [address] Start: 02-15-2024 3d rendering w/interp&postproc diff work station Preet Oliva DO Work Phone: Start: 02-15-2024 Mri brain brain stem w/o contrast material Preet Oliva Work Phone: Plan of Treatment Date Care Activity Detail Author Start: 08-05-2027 Diabetes Screening Diabetes Screenin g [facility] Start: 07-19-2025 Medicare Annual Well ness (AWV) Medicare Annual Wellness (AWV) [facility] Start: 06-20-2025 End: 06-20-2025 Patient encounter procedure 06/20/2025 1:30 PM EST Office Visit [facility] [address] [place] [address] Dion Frazier MD [address] [place] [address] [facility] Start: 02-26-2025 [facility] Start: 02-24-2025 Administration of prophylactic treatment [facility] Start: 02-24-2025 Consultation [facility] Start: 02-24-2025 Hospital admission [facility] Start: 01-04-2025 End: 01-04-2025 Follow-up encounter 01/04/2025 3:45 PM EDT [facility] Neurology [address] [place], [place] [id number] Margarita Arevalo PA-C [address] [place] [address] 3 month follow up Neurology Comment on above: 3 month follow up Start: 12-16-2024 End: 12-16-2024 Patient encounter procedure [facility] Comment on above: Arrived Start: 11-16-2024 End: 11-16-2024 Patient encounter procedure [facility] Start: 11-10-2024 End: 11-10-2024 Patient encounter procedure 11/10/2024 11:30 AM EDT Office Visit Neurology [address] [place] [address] Margarita Arevalo PA-C [address] [place] [address] Mild late onset Alzheimer's dementia without behavioral disturbance, psychotic d... 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 Start: 09-14-2024 End: 09-14-2024 Patient encounter procedure 09/14/2024 2:45 PM EST Office Visit [facility] [address] [place] [phone] Dion Frazier MD [address] [place] [address] Arrived [facility] Comment on above: Arrived Start: 07-19-2024 End: 07-19-2024 Patient encounter procedure 07/19/2024 1:00 PM EST Office Visit [facility] [address] [place] [phone] Ashley Elizondo NP [address] [place] [phone] Arrived [facility] Comment on above: Arrived Start: 07-14-2024 Advance Directive Discussion Advance Directive Discussion [facility] Start: 07-14-2024 Medicare Advantage A nnual Wellness Visit Medicare Advantage Annual Wellness Visit [facility] Start: 06-30-2024 Medicare Annual Well ness (AWV) Medicare Annual Wellness (AWV) [facility] Start: 06-30-2024 End: 06-30-2024 Patient encounter procedure 06/30/2024 1:00 PM EST Office Visit [facility] [address] [place] [phone] Ashley Elizondo NP [address] [place] [phone] [facility] Start: 06-22-2024 End: 06-22-2024 ambulatory 06/22/2024 2:30 PM EST Evaluation [facility] [address] [place] [address] Hyun Elaine, PT [facility] Start: 04-30-2024 End: 04-30-2024 Patient encounter procedure 04/30/2024 11:30 AM EDT Office Visit Neurology [address] [place] [address] Preet Oliva DO [address] [id number] 3 month post-MRI FU Neurology Comment on above: 3 month post-MRI FU Start: 03-14-2024 Covid-19 Vaccine () Covid-19 Vaccine () [facility] Start: 03-14-2024 Influenza vaccination Influenza Vacc ine (#1) [facility] Start: 02-15-2024 End: 02-15-2024 Patient encounter procedure 02/15/2024 11:40 AM EDT Appointment MRI Q [address] [id number] MRI brain w quant wo ivcon MRI Q Comment on above: MRI brain w quant wo ivcon Start: 01-23-2024 End: 04-23-2024 VITAMIN B1 (THIAMINE), WHOLE BLOOD VITAMIN B1 (THIAMINE), WHOLE BLOOD Lab Routine Mild late onset Alzheimer's dementia without behavioral disturbance, psychotic disturbance, mood disturbance, or anxiety (HCC) Expected: 01/23/2024, Expires: 04/23/[address] [facility] Comment on above: Expected: 01/23/2024 , Expires: 04/23/2024 Start: 07-14-2023 Advance Directive Discussion Advance Directive Discussion [facility] Start: 07-14-2023 Behavioral Health Screening Behavioral Health Screening [facility] Start: 03-14-2023 Covid-19 Vaccine ( season) Covid-19 Vaccine () [facility] Start: 04-16-2014 Diabetes Screening Diabetes Screenin g [facility] Start: 2012 RSV Vaccine (1 - 1-d ose 75+ series) RSV Vaccine (1 - 1-dose 75+ series) [facility] Start: 1997 RSV Vaccine (1 - 1-d ose 60+ series) RSV Vaccine (1 - 1-dose 60+ series) [facility] Start: 1987 Shingrix Vaccine (1 of 2) Mcmullen grix Vaccine (1 of 2) [facility] Start: 1956 Urine microalbumin profile DTaP,Tdap,Td Vaccine (1 - Tdap) [facility] Start: 1955 Anxiety Screening Anxiety Screening [facility] Start: 1955 Depression Screening Depression Scre ening [facility] Start: [address] [facility] End: 02-21-2025 MR Brain WO contrast MRI BRAIN W QUANT WO IVCON Radiology Routine Mild late onset Alzheimer's dementia without behavioral disturbance, psychotic disturbance, mood disturbance, or anxiety (HCC) 1 Occurrences starting 01/23/2024 until 02/21/2025 [facility] Work Phone: Comment on above: 1 Occurrences starti ng 01/23/2024 until 02/21/2025 End: 02-21-2025 MR Unspecified body region 3D post processing MRI 3D POST PROCESSING Radiology Routine Mild late onset Alzheimer's dementia without behavioral disturbance, psychotic disturbance, mood disturbance, or anxiety (HCC) 1 Occurrences starting 01/23/2024 until 02/21/[address] [facility] Comment on above: 1 Occurrences starti ng 01/23/2024 until 02/21/2025 Patient referral [facility] Work Phone: Immunizations Immunization Date Immunization Notes Care Provider Jenifer jean baptiste 03-22-2022 Seasonal, quadrivale nt, recombinant, injectable influenza vaccine, preservative free Ashley Elizondo UNIVERSITY PROFESSOR Work Phone: [facility] 03-22-2022 influenza virus vacc ine, unspecified formulation Preet Oliva DO Work Phone: [facility] 07-30-2021 Influenza, injectabl e, Madin Samantha Canine Kidney, preservative free, quadrivalent Ashley Elizondo UNIVERSITY PROFESSOR Work Phone: [facility] 05-09-2020 Seasonal, quadrivale nt, recombinant, injectable influenza vaccine, preservative free Ashley Elizondo UNIVERSITY PROFESSOR Work Phone: [facility] 04-24-2017 pneumococcal conjuga te vaccine, 13 valent Ashley Gloriatrick UNIVERSITY PROFESSOR Work Phone: [facility] 07-14-2007 pneumococcal polysaccharide vaccine, 23 valent Ashley Gloriatrick UNIVERSITY PROFESSOR Work Phone: [facility] Healthcare Payers Date Payer Category Payer Self-pay 2023 Medicare [id number] 2023 Medicare (Managed Care) [id number]. [id number] 2023 Unknown [facility] MEDICARE ADVANTAGE O [id number] 2023-[facility] [phone] [address] [place] [address] O [id number] 2023 Medicare [id number] 1959 Medicare [id number] 1937 Unknown [id number] 2..[id number] 93 1937 Unknown [id number] 2..840.1.913215.3.579.2.1 259 1937 Unknown [id number] 2..840.1.078643.3.579.2.1 259 1937 Unknown [id number] 2.16.840.1.459538.3.579.2.1 259 1937 Unknown [id number] 2.16.840.1.232654.3.579.2.1 259 1937 Unknown [id number] 2.16.840.1.300202.3.579.2.1 259 1937 Unknown [id number] 2.16.840.1.149864.3.579.2.1 259 1937 Unknown [id number] 2.16.840.1.220241.3.579.2.1 286 1937 Unknown [id number] 2.16.840.1.156166.3.579.2.1 286 1937 Unknown [id number] 2.16.840.1.838880.3.579.2.1 286 1937 Unknown [id number] 2.16.840.1.128803.3.579.2.1 286 1937 Unknown [id number] 2.16.840.1.010160.3.579.2.1 286 1937 Unknown [id number] 2.16.840.1.274053.3.579.2.1 286 Unknown [id number] Unknown [employer] [id number] Unknown [id number] Social History Date Type Detail Facility Start: 01-23-2024 End: 02-24-2025 Tobacco smoking status DCIS Ex-smoker [facility] History of tobacco use Current smoker [facility] Start: 01-23-2024 End: 10-07-2024 Alcohol intake Current drinker of alcohol (finding) [facility] Start: 01-23-2024 End: 10-07-2024 History of Social function [facility] Start: 01-23-2024 End: 10-07-2024 Tobacco use panel [facility] National Score (1-100), lower number is lower risk [address] [facility] Start: 01-23-2024 Tobacco Comment He msoked 1-2 PPd x 25-30 years, quit 20-[address] [facility] Start: 1935 Sex Assigned At Not on file [facility] Start: 12-30-2023 Tobacco smoking status DCIS Never smoked tobacco [facility] Start: 12-30-2023 Tobacco use and exposure [...] To some extent [facility] (I/We) worried whether (my/our) food would run out before (I/we) got money to buy more. Never true [facility] How often do you nee d to have someone help you when you read instructions, pamphlets, or other written material from your doctor or pharmacy [SILS] Often [facility] Sex Male (finding) [facility] Start: 1935 Sex Assigned At Male F [facility] Start: 02-25-2025 SDOH Follow up SDOH Follow up [facility] Work Phone: NEGATED: Highlighted rowStart: NINF History of tobacco use Passive smoker [facility] Clinical Notes 01-23-2024 to 02-24-2025 Note Date & Type Note Facility 02-24-2025 Evaluation note Diagnosis Onset Date Resolution Fall acute February 24, 2 025 12:19am Hip fracture, left acute February 24, 2025 12:19am [facility] Work Phone: [phone]) 579-157306-25-2025 Telephone encounter Note* Telephone Encounter - Jackson Alegre - 01/05/2025 2:50 PM EDT Left voicemail regarding scheduling follow up with Margarita in 3 months (Mar 2025), and new consult with Virginia Camacho, the [facility] social services specialist, scheduling number included for call back. [facility]06-25-2025 Miscellaneous Notes* Telephone Encounter - Jackson Alegre - 01/05/2025 2:50 PM EDT Left voicemail regarding scheduling follow up with Margarita in 3 months (Mar 2025), and new consult with Virginia Camacho, the [facility] social services specialist, scheduling number included for call back. documented in [facility]25 NoteHNO ID: [id number] Author: MARGARITA AREVALO PA-C Service: ? Author Type: Physician Composition Roofer Type: Progress Notes Filed: 01/04/2025 16:10 Note Text: Derrick Monae 1935 [address] [facility] [address] January 04, 2025 Time: 3:43 PM [facility] VIRTUAL VISIT I have communicated my name and active licensure. The patient's identity and physical location were verified at the time of this visit. Either the patient or their legal retail customer service representative has been informed of the risks [...] (FLONASE) 50 mcg/actuation nasal spray Use 1 Kidder in the nose once daily. loratadine-pseudoephedrine ER [...] review as above in addition to medical counseling.[facility]06-24-2025 History of Present illness Narrative* Margarita Arevalo PA-C - 01/04/2025 3:42 PM EDT Derrick Monae 1935 [address] [facility] [address] January 04, 2025 Time: 3:43 PM [facility] VIRTUAL VISIT I have communicated my name and active licensure. The patient's identity and physical location wereverified at the time of this visit. Either the patient or their legal retail customer service representative has been informed of the risks and benefits of -- and alternatives to -- treatment through a remote evaluation andconsents to proceed with the evaluation remotely. Accompanied by: son and spouse SUBJECTIVE Derrick Monae is a pleasant 89 year old year old male seen today for a follow up/virtual visit. He is being followed for Late Onset AD and irritability. Patient was last seen in September 2024, we heldSeroquel and started Zoloft. states that he is taking the Zoloft, he is tolerating it. Son feels that it is helping overall. He left the house, his found him in the orchard looking at the trees. He fell at home. He did not hit his head, no LOC. He continues to have memory loss, confusion,asking for loved ones. We discussed how to [...] (FLONASE) 50 mcg/actuation nasal spray Use 1 Kidder in the nose once daily. loratadine-pseudoephedrine ER [...] addition to medical counseling. [facility] History of Present illness Narrative* Dion Frazier MD - 12/16/2024 1:55 PM EDTAssociated Problem(s): Primary hypertension (CMS/HCC) BP controlled and monitor PRN. * Dion Frazier MD - 12/16/2024 1:55 PM EDTAssociated Problem(s): Moderate persistent asthma Breathing stable and follow with pulmonology. * Dion Frazier MD - 12/16/2024 1:55 PM EDTAssociated Problem(s): CAD (coronary artery disease) ([facility]/HCC) No symptoms and monitor. * Dion Frazier MD - 12/16/2024 1:55 PM EDTAssociated Problem(s): Alzheimer's dementia ([facility]) Symptoms stable and continue medication. Follow with neurology. * Dion Frazier MD - 12/16/2024 1:15 PM EDT Images from the original note [...] neurology and no recent medication changes. Continued forg etfulness. Not having outbursts or behavior changes. CAD [...] Addressed This Visit CAD (coronary artery disease) ([facility]/HCC) No symptoms and monitor. Moderate persistent asthma Breathing stable and follow with pulmonology. Primary hypertension ([facility]/HCC) - Primary BP controlled and monitor PRN. Alzheimer's dementia ([facility]) Symptoms stable and continue medication. Follow with neurology. documented in this encounterPutnam County Memorial HospitalNvrtpzcjnj43-69-2419 Instructions* Patient Instructions* Margarita Arevalo PA-C - 10/07/2024 1:18 PM [...] in about 3 months [address] [facility]03-27[facility]25 History of Present illness Narrative* Margarita Arevalo PA-C - 10/07/2024 1:00 PM EDT Images from the original note were not included. Derrick P Lorna 1935 [address] [facility] [address] October 07, 2024 Time: 11:58 AM [facility] FOLLOW-UP NOTE Accompanied by: spouse and daughter (she is visiting, lives in [place]) SUBJECTIVE Derrick Monae is a pleasant 89 [...] worse, daughter agrees. She is visiting from [place], here for about one month. Spouse states [...] disease) COPD (chronic obstructive pulmonary disease) ([facility]) GERD (gastroesophageal reflux disease) SOCIAL HISTORY [...] (FLONASE) 50 mcg/actuation nasal spray Use 1 Kidder in the nose once daily. loratadine-pseudoephedrine ER [...] which included preparing to see the patient, [id number] patient care, completing clinical documentation, counseling and educating the patient/family/caregiver, and ordering medications, tests, or procedures. JOSEF Mandujano PA-C Brain Health documented in this [facility]Wilson [facility]03-27-2025 NoteHNO ID: [id number] Author: MARGARITA AREVALO PA-C Service: ? Author Type: Physician Composition Roofer Type: Progress Notes Filed: 10/07/2024 14:21 Note Text: Derrick Monae 1935 [address] [facility] [address] October 07, 2024 Time: 11:58 AM Brain [facility] FOLLOW-UP NOTE Accompanied by: spouse and daughter (she is visiting, lives in [place]) SUBJECTIVE Derrick Monae is a pleasant 89 [...] worse, daughter agrees. She is visiting from [place], here for about one month. Spouse states [...] disease) COPD (chronic obstructive pulmonary disease) ([facility]) GERD (gastroesophageal reflux disease) SOCIAL HISTORY [...] (FLONASE) 50 mcg/actuation nasal spray Use 1 Kidder in the nose once daily. loratadine-pseudoephedrine ER [...] frustration -message me i (more content not included)...[facility]03-04-2025 History of Present illness Narrative* Dion Frazier MD - 09/14/2024 3:37 PM EST Associated Problem(s): Primary hypertension (CMS/HCC) BP controlled and monitor PRN. * Dion Frazier MD - 09/14/2024 3:36 PM ESTAssociated Problem(s): Moderate persistent asthma (CMS/HCC) Breathing stable and follow with pulmonology. * Dion Frazier MD - 09/14/2024 3:36 PM ESTAssociated Problem(s): CAD (coronary artery disease) (CMS/HCC) No symptoms and monitor. * Dion Frazier MD - 09/14/2024 3:35 PM ESTAssociated Problem(s): Alzheimer's dementia ([facility]) Worsening behavior problems and add seroquel. Continue medication and follow with neurology. * Dion Frazier MD - 09/14/2024 2:45 PM EST Images from the original note were not included. Subjective Patient ID: Derrick oMnae is a 89 y.o. male who presents for Anxiety (Gets loud, and angry) and Depression. Follow up HTN, alzheimers, asthma, and CAD. Patient stable today. Checking BP PRN and typically controlled. BP normal today. Taking medication daily and tolerating without side effects. Alzheimer's disease slowly worsening. Following with neurology and scheduled at end of October. Continued forgetfulness. Starting to have outbursts and [...] Addressed This Visit CAD (coronary artery disease) ([facility]/HCC) No symptoms and monitor. Moderate persistent asthma (CMS/HCC) Breathing stable and follow with pulmonology. Primary hypertension (CMS/HCC) - Primary BP controlled and monitor PRN. Alzheimer's dementia ([facility]/HCC) Worsening behavior problems and add seroquel. Continue medication and follow with neurology. Relevant Medications QUEtiapine (SEROquel) 25 MG tablet documented in this encounterPutnam County Memorial [id number] History of Present illness Narrative* Ashley Elizondo NP - 08/05/2024 3:36 PM ESTAssociated Problem(s): Upper respiratory infection with cough and congestion Pt experiencing dyspnea and increased work of breathing while sitting in the office at rest, elevated HR of 107. Although his SPO2 is 94% on room air, I am concerned for patient having such increasedwork of breathing. At this time advised pt and to report to emergency room for further eval and treatment. * Ashley Elizondo NP - 08/05/2024 3:00 PM EST Subjective Patient ID: Derrick Monae is a [...] Neurological: Negative for dizziness, tremors, syncope, weakness, light- headedness and headaches. Psychiatric/Behavioral: Negative for decreased concentration and suicidal ideas. The patient is notnervous/anxious. Hematological: Does not bruise/bleed easily. Endocrine: Negative [...] of the right-lower field reveals rhonchi. Examination ofthe left- lower field reveals rhonchi. Rhonchi present. Abdominal: General: [...] I am concerned for patient having such increasedwork of breathing. At this time advised pt and to report to emergency room for further eval and treatment. documented in this encounterPutnam County Memorial [id number] History of Present illness Narrative* Ashley Elizondo, UNIVERSITY PROFESSOR - 07/19/2024 1:00 PM EST Images from the original note were not [...] hr tablet Take 1 tablet by mouth inthe morning. Do not crush, chew, or split.. [...] Neurological: Negative for dizziness, tremors, syncope, weakness, light- headedness and headaches. Psychiatric/Behavioral: Positive for behavioral problems, confusion and sleep disturbance. Negativefor decreased concentration and suicidal ideas. The patient [...] reading the newspaper or watching television: Nearly everyday Moving or speaking so slowly that other [...] Do you have a medical power of compliance attorney?: Yes Who is your medical power of compliance attorney?: pedro monae Objective : BP 128/76 [...] on July 19, 2024 documented in this encounterPutnam County Memorial HospitalFaydtjhvzy41-07-6235 Telephone encounter Note* Telephone Encounter - Sarah Galloway - 06/25/2024 1:52 PM EST 4th attempt unable to contact anyone [facility] HospitalRqdyunvtpj36-00-2023 Miscellaneous Notes* Telephone Encounter - Sarah Galloway - 06/25/2024 1:52 PM EST 4th attempt unable to contact anyone * Telephone Encounter - Sarah Galloway - 06/23/2024 3:49 PM EST Attempted but only rang; will try again. * Telephone Encounter - Sarah Galloway - 06/22/2024 2:42 PM EST Tried # listed 2x's but would not go thru to notify of missed PT Eval. documented in this encounterPutnam County Memorial HospitalHlczwhtlom25-14-0135 Telephone encounter Note* Telephone Encounter - Sarah Galloway - 06/23/2024 3:49 PM EST Attempted but only rang; will try again. [place] [id number] Telephone encounter Note* Telephone Encounter - Sarah Galloway - 06/22/2024 2:42 PM EST Tried # listed 2x's but would not go thru to notify of missed PT Eval. [facility] HospitalXrokgknhws34-11-4358 Telephone encounter Note* Telephone Encounter - Sarah Galloway - 06/21/2024 11:13 AM EST Contacted and scheduled PT Eval 12 w/ Carlyle Elaine, PT. [facility] HospitalBjiolqavry52-53-6018 Miscellaneous Notes* Telephone Encounter - Sarah Galloway - 06/21/2024 11:13 AM EST Contacted and scheduled PT Eval 06/22 w/ Carlyle Elaine, PT. * Telephone Encounter - Sarah Galloway - 06/18/2024 10:26 AM EST Same as before. * Telephone Encounter - Sarah Galloway - 06/16/2024 12:57 PM EST Tried to contact to schedule PT eval; but no answer / no machine. $35.00 copay / prior auth needed. documented in this encounterPutnam County Memorial HospitalYizgoittgy95-60-7616 Telephone encounter Note* Telephone Encounter - Sarah Galloway - 06/18/2024 10:26 AM EST Same as before. [facility] HospitalYrqkgyzxqj26-42-1718 Telephone encounter Note* Telephone Encounter - Sarah Galloway - 06/16/2024 12:57 PM EST Tried to contact to schedule PT eval; but no answer / no machine. $35.00 copay / prior auth needed. [facility] HospitalHvbtdpymlq08-44-8019 Telephone encounter Note* Telephone Encounter - Tiarra Best RN - 06/15/2024 10:11 AM EST Spoke with patient PCP office to discuss memantine titration schedule. Advised to titrate slowly and to reach out if patient experiences side effects to further advise. PCP office to call patient spouse to review. Tiarra Best RN [facility]12-03-2024 Miscellaneous Notes* Telephone Encounter - Tiarra Best RN - 06/15/2024 10:11 AM EST Spoke with patient PCP office to discuss memantine titration schedule. Advised to titrate slowly and to reach out if patient experiences side effects to further advise. PCP office to call patient spouse to review. Tiarra Best RN * Telephone Encounter - Hanny Quintanilla - 06/14/2024 3:14 PM EST Saeble from patient's PCP's office called asking if patient should be taking Namenda. Is currently not taking it. Please call [phone] [facility]12-02-2024 Telephone encounter Note * Telephone Encounter - Hanny Quintanilla - 06/14/2024 3:14 PM EST Saeble from patient's PCP's office called asking if patient should be taking Namenda. Is currently not taking it. Please call [phone] [facility]11-19-2024 History of Present illness Narrative* Ashley Elizondo NP - 06/01/2024 9:47 AM ESTAssociated Problem(s): Frequent falls Was seen at [facility] on 05/04 for frequent falls. Was negative for UTI. Has MRI of brain done in 02/2024 Neurology started Donepezil, had initially ordered Namenda as well but decided to hold off due to falls. * Ashley Elizondo NP - 06/01/2024 9:46 AM ESTAssociated Problem(s): Alzheimer's dementia ([facility]) Follows closely with Neurology Dr. Oliva @ [facility] Diagnosed with mild late onset Alzheimer's dementia; reports pt is aggressive and combative; Does not follow instructions well. Son has moved in with them to help care for him. Pt is no longer driving. would like formal diagnosis that patient is unsafe to drive. Will defer to [facility]. * Ashley Elizondo NP - 05/27/2024 11:30 AM EST Images from the original note were not included. Subjective Patient ID: Derrick Monae is a 88 y.o. male who presents for Hospital Follow-up. [facility] Neurology Dr. Oliva @ [facility] Diagnosed with mild late onset Alzheimer's dementia; Was seen at [facility] on [...] is unsafe to drive. Will defer to [facility]. I personally reached out to Dr. Oliva's office at [facility] and left an extensive message regarding pt [...] Neurological: Negative for dizziness, tremors, syncope, weakness, light- headedness and headaches. Psychiatric/Behavioral: Positive for behavioral problems [...] Frequent falls - Primary Was seen at [facility] on 05/04 for frequent falls. Was negative for UTI. Has MRI of brain done in 02/2024 Neurology started Donepezil, had initially ordered Namenda as well but decided to hold off due to falls. documented in this encounterPutnam County Memorial HospitalBcynngpldu98-86-4768 Telephone encounter Note* Telephone Encounter - Amalia Albarran RN - 05/04/2024 4:08 PM EDT RN called spouse back and informed her that Dr. Oliva said to hold off on Namenda for now so as notto further complicate things. She was asked to provide update after visit to urgent care. She said that he is currently sleeping, but will take him. Amalia Albarran RN [facility]10-22-2024 Miscellaneous Notes* Telephone Encounter - Amalia Albarran RN - 05/04/2024 4:08 PM EDT RN called spouse back and informed her that Dr. Oliva said to hold off on Namenda for now so as notto further complicate things. She was asked to provide update after visit to urgent care. She said that he is currently sleeping, but will take him. Amalia Albarran RN * Telephone Encounter - Amalia Albarran RN - 05/04/2024 3:20 PM EDT He did not start Memantine did not start at all. He has fallen a number of times. She got him a walker. He has deteriorated a lot in the last coupledays. He has fallen a number times. He hasn't been hurt. He is more confused. She wanted to know why the namenda bottle was different than the AVS instructions for starting the namenda. I explained it was necessary to do titration to lessen potential side effects. I will message Dr. Oliva to see ifhe wants to hold off on starting namenda until he is checked out. She was advised to take him to urgent/express care to make sure there is no underlying cause for his increase in confusion and recent frequent falls. Amalia Albarran RN * Telephone Encounter - Ac Zambrano - 05/04/2024 2:54 PM EDT 05/04/24 Patient's spouse Pedro reached the office to request clarification before starting patient on the following medication memantine (NAMENDA) 10 mg tablet Si mg, ORAL, 2 TIMES DAILY. She reports he has physically started to decline and has been falling over more. Please review and advise. [phone] -IN documented in this [facility]Wilson [facility]10-22-2024 Telephone encounter Note * Telephone Encounter - Amalia Albarran RN - 05/04/2024 3:20 PM EDT He did not start Memantine did not start at all. He has fallen a number of times. She got him a walker. He has deteriorated a lot in the last coupledays. He has fallen a number times. He hasn't been hurt. He is more confused. She wanted to know why the namenda bottle was different than the AVS instructions for starting the namenda. I explained it was necessary to do titration to lessen potential side effects. I will message Dr. Oliva to see ifhe wants to hold off on starting namenda until he is checked out. She was advised to take him to urgent/express care to make sure there is no underlying cause for his increase in confusion and recent frequent falls. Amalia Albarran, RN [facility]10-22-2024 Telephone encounter Note* Telephone Encounter - Ac Zambrano - 05/04/2024 2:54 PM EDT 05/04/24 Patient's spouse Pedro reached the office to request clarification before starting patient on the following medication memantine (NAMENDA) 10 mg tablet Si mg, ORAL, 2 TIMES DAILY. She reports he has physically started to decline and has been falling over more. Please review and advise. [phone] -IN [facility]10-18-2024 Instructions* Patient Instructions* Preet Oliva DO - 04/30/2024 12:34 PM EDT Thank [...] information. Follow up 6 months with Margarita If you need to reschedule this please call [phone]. If you need to reach our office for any reason prior to your next visit, please contact us through Anywhere to Go or call [phone]. Ways to keep your brain healthy: Follow up regularly with your primary care and other providers to ensure your vascular risk factors(blood pressure, blood sugar, sleep apnea, and cholesterol [...] fish and fish high in mercury (swordfish, Gambian sea flood, orange roughy, ahi tuna, albacore [...] per week. Red meat: beef, pork, conti, venison,veal, bison. Processed meats: shay, hotdogs, salami, sausage, [...] resources are: The Alzheimer's Association (web site: alz.org/[place]) available 24 hours a day, 7 days per week. Contact: Local: ; Toll free: [phone] Family Caregiver [place] (web site: Caregiver.org) [employer] [place]-- a secure online solution for quality information, support, and resources for family caregivers. Contact: Toll-free number: [phone] Alzheimers.gov - Find Alzheimer disease and related dementias information, resources, research and more. documented in this encounterWilson [address] Hospital10-18-2024 NoteHNO ID: [id number] Author: PREET OLIVA DO Service: ? Author [...] September. He got really confused at a [employer] tournament. He had no idea where they were. Another time at a graduation republican he thought they already went there. Has [...] as well. 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 Education level: few semesters at [employer] Alcohol: He says he drinks 2 beers per day and is concerned he drinks much more than this. Goes through about 24 beers per week. Tobacco: Former smoker many year (more content not included)...[facility]10-18-2024 History of Present illness Narrative* Preet Oliva DO - 04/30/2024 11:57 AM EDT Images from the original note were not included. Chief complaint: Cognitive changes and Memory loss This is a 88 year old male with hx of CAD, COPD, severe hearing loss with hearing aids who presentsfor follow up evaluation of mild dementia suspected [...] in a chair in the kitchen. He wasreally confused. No convulsing or shaking. Lasted about [...] time they noticed something was off was inMarch. He got really confused at a [employer] tournament. He had no idea where they were. Another time at a graduation republican he thought they already went there. Has [...] as well. 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 There was [...] for his needs. They were in his truckthe other day and he could not figure [...] Activities of Daily Living [place] in Activities of Daily Living (A.D.L.) Bathing: Bathes self completely or needs help in bathing only a single part of the body such as theback, genital area or disabled extremity. (1 POINT) Dressing: Get clothes from closets and drawers and puts on clothes and outer garments complete withfasteners. May have help tying shoes. (1 POINT) Toileting: Goes to toilet, gets on and off, arranges clothes, cleans genital area without help. (1 POINT) Transferring: Moves in and out of bed or chair unassisted. 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 Education level: few semesters at [employer] Alcohol: He says he drinks 2 beers [...] (FLONASE) 50 mcg/actuation nasal spray Use 1 Kidder in the nose once daily. loratadine-pseudoephedrine ER [...] (?) dementia Heart Father age 70 of [place], first OR age 65 Lipids Brother Alive age 52 [...] in no acute distress, well-hydrated, well nourished. 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 Cannot rule [...] which included preparing to see the patient, [id number] patient care, performing a medically appropriate examination, completing clinical documentation, and on counseling/ eductaing the patient and the family. Preet Oliva DO [facility]* Edilberto Goodwin MA - 04/30/2024 11:27 AM EDT Derrick Monae is a 88 year old [...] 72.6 kg (160 lb) BMI 25.82 kg/m [facility]10-18-[facility] Nurse Note* Edilberto Goodwin MA - 04/30/2024 11:27 AM EDT Derrick Monae is a 88 year old [...] lb) BMI 25.82 kg/m [facility] History of Present illness Narrative* Hank Santana, RT(R) - 02/15/2024 11:40 AM EDT Radiology Service Progress Note PATIENT NAME: Derrick Monae DATE OF SERVICE: February 15, 2024 TIME: 11:55 AM PATIENT IDENTITY VERIFICATION COMPLETED USING TWO (2) IDENTIFIERS: Name and Date of confirmedby identification band and Name and Date of obtained from a relative, guardian or prior caregiver.. FALL SCREENING: Has the patient had 2 falls in the last year or 1 fall with injury or currently using an Ambulatory Assistive Device (Walker, Cane, Wheelchair, Crutches, etc.)? No PATIENT GENDER DATA: Male PATIENT RELEVANT IMPLANT DATA REVIEWED: Yes PATIENT PRESENTS WITH AN IMPLANTABLE OR ATTACHED NEWS COPY EDITOR: No RADIOLOGY DEPARTMENT: MR; Exam(s) Completed: Head: dementia brain wo PERIPHERAL IV DATA: Not applicable SIGNED BY: RT Ana(Delfino) February 15, 2024 11:55 AM documented in [address] [facility] [address] [facility]08-04-2024 NoteHNO ID: [id number] Author: HANK SANTANA RT(R) Service: Radiology Author [...] PATIENT PRESENTS WITH AN IMPLANTABLE OR ATTACHED NEWS COPY EDITOR: No RADIOLOGY DEPARTMENT: MR; Exam(s) Completed: Head: dementia brain wo PERIPHERAL IV DATA: Not applicable SIGNED BY: RT Ana(Delfino) February 15, 2024 11:55 [facility]07-12-2024 Instructions* Patient Instructions* Preet Oliva DO - 01/23/2024 11:39 AM EDT Our team had the pleasure of seeing you today at [facility]. We reviewed your evaluation of memory, [...] known as dementia. Dementia is not a diseaseitself but a group of symptoms which may [...] patients have this done either in at [facility] or [facility] [place] at the [facility]. To schedule at either location call: . Medications: Start donepezil 5 mg daily (1/2 tab) for one month then increase to 10 mg daily after that. We would like you to return to [facility] for a follow up visit roughly 3 months or after MRI brain scan. Sincerely, documented in this encounterWilson [facility]07-12-[facility]24 NoteHNO ID: [id number] Author: PREET OLIVA DO Service: ? Author Type: Physician Type: Progress Notes Filed: 01/23/2024 13:22 Note Text: Reason for Referral: Cognitive changes and Memory loss I had the pleasure of seeing this 88 year old year old [facility] The patient is referred by [...] September. [facility] He had no idea where they were. Another time at a graduation [place] he thought they already went there. Has [...] as well. 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 Education level: few semesters at [employer] Alcohol: He says he drinks 2 beers [...] SOB Current Outpatient Med (more content not included)...[facility] 01-23-2024 History of Present illness Narrative* Preet Oliva, - 01/23/2024 10:19 AM EDT Images from the original note [...] time they noticed something was off was inMarch. He got really confused at a [employer]. He had no idea where they were. Another time at a graduation republican he thought they already went there. Has [...] as well. 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 There was [...] for his needs. They were in his truckthe other day and he could not figure [...] Activities of Daily Living [place] in Activities of Daily Living (A.D.L.) Bathing: Bathes self completely or needs help in bathing only a single part of the body such as theback, genital area or disabled extremity. (1 POINT) Dressing: Get clothes from closets and drawers and puts on clothes and outer garments complete withfasteners. May have help tying shoes. (1 POINT) Toileting: Goes to toilet, gets on and off, arranges clothes, cleans genital area without help. (1 POINT) Transferring: Moves in and out of bed or chair unassisted. 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 Education level: few semesters at [employer] Alcohol: He says he drinks 2 beers [...] (FLONASE) 50 mcg/actuation nasal spray Use 1 Kidder in the nose once daily. loratadine-pseudoephedrine ER [...] (?) dementia Heart Father age 70 of [place], first [place] age 65 Lipids Brother Alive age 52 [...] in no acute distress, well-hydrated, well nourished. andObese Skin: Skin color, texture, turgor normal, no suspicious rashes or lesions Eyes: Anicteric sclera. Pupils are equally round and reactive to light. Extraocular movements are intact. Neurological Exam Brief Neuropsychiatric Evaluation: Raza Cognitive Assessment (MoCA) Version 1 Total Score: 13/30 Visuospatial/Executive: 2/5 Namin/3 Attention: 4/6 Language: 0/3 [...] with hx of CAD, COPD, severe hearing losswith hearing aids who presented with progressive decline in function and memory. He has significanthearing loss but despite this can understand much [...] about his low MOCA score and we discussedthis today. Next visit after his MRI scan [...] which included preparing to see the patient, yeti-dm-egqo patient care, performing a medically appropriate examination, completing clinical documentation, and on counseling/ eductaing the patient and the family. Preet Oliva DO documented in this encounterWilson [facility]07-12-2024 Nurse Note* Ewa Monae OCCA - 01/23/2024 10:08 AM EDT Derrick Monae is a 88 year old year old right handed man Accompanied by: spouse and son. 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 Patient is GRINDSTONE he don't know why he here. His made the appointment she stated he is forgetful. Vital Signs: BP 158/70 Pulse (!) 55 Wt 72.6 kg (160 lb 1.6 oz) BMI 25.84 kg/m [facility]-12-[facility] Nurse Note* Ewa Monae OCCA - 01/23/2024 10:08 AM EDT Derrick Monae is a 88 year old year old right handed man Accompanied by: spouse and son. 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 Patient is GRINDSTONE he don't know why he here. His made the appointment she stated he is forgetful. Vital Signs: BP 158/70 Pulse (!) 55 Wt 72.6 kg (160 lb 1.6 oz) BMI 25.84 kg/m [facility]* Diagnosis Mild late onset Alzheimer's dementia without behavioral disturbance, psychotic disturbance, mood disturbance, or anxiety (HCC)- Primary documented [facility] this encounter [facility]* Diagnosis Mild late onset Alzheimer's dementia without behavioral disturbance, psychotic disturbance, mood disturbance, or anxiety (HCC) documented in this encounter [facility]* Diagnosis Mild late onset Alzheimer's dementia without behavioral disturbance, psychotic disturbance, mood disturbance, or anxiety (HCC)- Primary documented in this encounter [facility]* Diagnosis Moderate persistent asthma without complication (CMS/HCC)- Primary Gastroesophageal reflux disease without esophagitis Esophageal reflux Seasonal allergies Allergic rhinitis, cause unspecified Encounter for Medicare annual wellness exam Primary hypertension (CMS/HCC) Unspecified essential hypertension 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 (CMS/HCC)- Primary Moderate persistent asthma without complication (CMS/HCC) Primary hypertension (CMS/HCC) Unspecified essential hypertension Frequent falls- Primary documented in [facility] encounter [facility]* Diagnosis Moderate persistent asthma without complication (CMS/HCC)- Primary Gastroesophageal reflux disease without esophagitis Esophageal reflux Seasonal allergies Allergic rhinitis, cause unspecified Encounter for Medicare annual wellness exam Primary hypertension (CMS/HCC) Unspecified essential hypertension 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 (CMS/HCC)- Primary Moderate persistent asthma without complication (CMS/HCC) Primary hypertension (CMS/HCC) Unspecified essential hypertension Frequent falls- Primary Frequent falls- Primary Alzheimer's dementia with mood disturbance, unspecified dementia severity, unspecified timing of dementia onset (CMS/HCC) documented in this encounter [facility]* Diagnosis Moderate persistent asthma without complication (CMS/HCC)- Primary Gastroesophageal reflux disease without esophagitis Esophageal reflux Seasonal allergies Allergic rhinitis, cause unspecified Encounter for Medicare annual wellness exam Primary hypertension (CMS/HCC) Unspecified essential hypertension 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 (CMS/HCC)- Primary Moderate persistent asthma without complication (CMS/HCC) Primary hypertension (CMS/HCC) Unspecified essential hypertension Frequent falls- Primary Medicare annual wellness visit, subsequent- Primary documented in this encounter [facility]* Diagnosis Moderate persistent asthma without complication (CMS/HCC)- Primary Gastroesophageal reflux disease without esophagitis Esophageal reflux Seasonal allergies Allergic rhinitis, cause unspecified Encounter for Medicare annual wellness exam Primary hypertension (CMS/HCC) Unspecified essential hypertension 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 (CMS/HCC)- Primary Moderate persistent asthma without complication (CMS/HCC) Primary hypertension (CMS/HCC) Unspecified essential hypertension Frequent falls- Primary Upper respiratory infection with cough and congestion- Primary documented in this encounter [facility]* Diagnosis Moderate persistent asthma without complication (CMS/HCC)- Primary Gastroesophageal reflux disease without esophagitis Esophageal reflux Seasonal allergies Allergic rhinitis, cause unspecified Encounter for Medicare annual wellness exam Primary hypertension (CMS/HCC) Unspecified essential hypertension 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 (CMS/HCC)- Primary Moderate persistent asthma without complication (CMS/HCC) Primary hypertension (CMS/HCC) Unspecified essential hypertension Frequent falls- Primary Primary hypertension (CMS/HCC)- Primary Unspecified essential hypertension Moderate persistent asthma without complication (CMS/HCC) Alzheimer's dementia with mood disturbance, unspecified dementia severity, unspecified timing of dementia onset (CMS/HCC) 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 (CMS/HCC) documented in [facility] encounter [facility]* Diagnosis Alzheimer's disease (HCC)- Primary Alzheimer's disease [facility] this encounter [facility]* Diagnosis Moderate persistent asthma without complication (CMS/HCC)- Primary Gastroesophageal reflux disease without esophagitis Esophageal reflux Seasonal allergies Allergic rhinitis, cause unspecified Encounter for Medicare annual wellness exam Primary hypertension (CMS/HCC) Unspecified essential hypertension 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 (CMS/HCC)- Primary Moderate persistent asthma without complication (CMS/HCC) Primary hypertension (CMS/HCC) Unspecified essential hypertension Frequent falls- Primary Primary hypertension (CMS/HCC)- Primary Unspecified essential hypertension Moderate persistent asthma without complication (CMS/HCC) Alzheimer's dementia with mood disturbance, unspecified dementia severity, unspecified timing of dementia onset (CMS/HCC) 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 (CMS/HCC) Primary hypertension (CMS/HCC)- Primary Unspecified essential hypertension Moderate persistent asthma without complication (CMS/HCC) Alzheimer's dementia with mood disturbance, unspecified dementia severity, unspecified timing of dementia onset (CMS/HCC) 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 (CMS/HCC) [facility]* Diagnosis Alzheimer's disease (HCC)- Primary Alzheimer's disease Probable Alzheimer's disease - LATE ONSET (> 65 years) [331.0AS] Alzheimer's disease documented in this encounter [facility] Discharge instructions Additional Instructions SNF to manage: -PT/OT to eval and treat -Monitor VS per protocol -High fall risk precautions -Perform orthopedic assessments -Turn and reposition every 2 hours -Dietitian recommendations: *Ensure plus, 1 container, BID with meals -Change dressing every 3 days: *Mepilex border foam to Coccyx for added protection. -Care to be managed by SNF providers.[facility] Work Phone: Summary Purpose Family History No Family History Records Found Relationship Condition Age at Onset Recorded Date/T sobeida mother Dementia Unknown Arthritis Unknown father Heart disease Unknown Advance Directives No Advanced Directives Records Found Advance Directive Response Recorded Date/ Time Advance Directives No December 02 8 10:24am Reason for Referral Specialty Diagnoses / Procedures Referred By Contac t Referred To Contact MR IMAGING Diagnoses Mild late onset Alzheimer's dementia without behavioral disturbance, psychotic disturbance, mood disturbance, or anxiety ([facility]) Procedures MRI 3D POST PROCESSING 3D RENDERING W/INTERP&POSTPROC DIFF WORK STATION Preet Oliva DO [address] [address] [place] [address] Referral ID Status Reason Start Date Expiration Date Visits Requested Visits Authorized [id number] Pending Review Auto-Generat ed Referral 01/23/2024 02/21/2025 1 1 Specialty Diagnoses / Procedures Referred By Nakul t Referred To Contact MR IMAGING Diagnoses Mild late onset Alzheimer's dementia without behavioral disturbance, psychotic disturbance, mood disturbance, or anxiety (HCC) Procedures MRI BRAIN W QUANT WO IVCON MRI BRAIN BRAIN STEM W/O CONTRAST MATERIAL Preet Oliva DO [address] [address] [place] [address] Referral ID Status Reason Start Date Expiration Date Visits Requested Visits Authorized [id number] Authorized Auto-Generat ed Referral 01/23/2024 02/21/2025 1 1 Referral ID Status Reason Start Date Expiration Date V isits Requested Visits Authorized [id number] Closed Auto-Generate d Referral 01/30/2024 07/13/2024 1 1 Referral ID Status Reason Start Date Expiration Date V isits Requested Visits Authorized [id number] Closed Auto-Generate d Referral 01/23/2024 02/21/2025 1 1 Chief Complaint and Reason for Visit Chief Complaint Admit Date left hip fracture February 24, 2025 12 :19am Reason for Visit Admit Date Fall February 24, 2025 12 :19am Hip fracture, left February 24, 2025 12 :19am Additional Source Comments (unrecognized sect ion and content) No Status Records FoundNo Status Records FoundNo Status Records FoundNo Status Records FoundNo Status Records FoundNo Status Records Found INFORMATION SOURCE (unrecogn ized section and content) DATE CREATED AUTHOR 10/02/2021 [facility] DATE CREATED AUTHOR AUTHOR'S ORGANIZ ATION 12/17/2024 [facility] EP[facility] DATE CREATED AUTHOR AUTHOR'S ORGANIZ ATION 01/06/2025 [facility] DATE CREATED AUTHOR AUTHOR'S ORGANIZ ATION 02/12/2025 [facility] DATE CREATED AUTHOR AUTHOR'S ORGANIZ ATION 02/14/2025 [facility] DATE CREATED AUTHOR AUTHOR'S ORGANIZ ATION 03/05/2025 [facility] Source Comments (unrecognize d section and content) In the event this informatio n is protected by the Federal Confidentiality of Alcohol and Drug Abuse Patient Records regulations: The Federal rules restrict any use of the information to criminally investigate or prosecute any alcohol or drug abuse patient.[facility] HospitalIn the event this information is protected by the Federal Confidentiality of Alcohol and Drug Abuse Patient Records regulations: The Federal rules restrict any use of the information to criminally investigate or prosecute any alcohol or drug abuse patient.[facility] HospitalIn the event this information is protected by the Federal Confidentiality of Alcohol and Drug Abuse Patient Records regulations: The Federal rules restrict any use of the information to criminally investigate or prosecute any alcohol or drug abuse patient.[facility] HospitalIn the event this information is protected by the Federal Confidentiality of Alcohol and Drug Abuse Patient Records regulations: The Federal rules restrict any use of the information to criminally investigate or prosecute any alcohol or drug abuse patient.[facility] HospitalIn the event this information is protected by the Federal Confidentiality of Alcohol and Drug Abuse Patient Records regulations: The Federal rules restrict any use of the information to criminally investigate or prosecute any alcohol or drug abuse patient.[facility] HospitalIn the event this information is protected by the Federal Confidentiality of Alcohol and Drug Abuse Patient Records regulations: The Federal rules restrict any use of the information to criminally investigate or prosecute any alcohol or drug abuse patient.[facility] HospitalIn the event this information is protected by the Federal Confidentiality of Alcohol and Drug Abuse Patient Records regulations: The Federal rules restrict any use of the information to criminally investigate or prosecute any alcohol or drug abuse patient.[facility] HospitalIn the event this information is protected by the Federal Confidentiality of Alcohol and Drug Abuse Patient Records regulations: The Federal rules restrict any use of the information to criminally investigate or prosecute any alcohol or drug abuse patient.[facility] Reason for Visit (unrecogniz ed section and content) Reason Comments New Patient Reason Comments Radiology MRI Specialty Diagnoses / Procedures Referred By Contac t Referred To Contact MR IMAGING Diagnoses Mild late onset Alzheimer's dementia without behavioral disturbance, psychotic disturbance, mood disturbance, or anxiety (HCC) Procedures MRI 3D POST PROCESSING 3D RENDERING W/INTERP&POSTPROC DIFF WORK STATION Preet Oliva DO [address] [address] [place] [address] Referral ID Status Reason Start Date Expiration Date V isits Requested Visits Authorized [id number] Closed Auto-Generate d Referral 01/30/2024 07/13/2024 1 [...] and new consult with Virginia Camacho, the [facility] social services specialist, scheduling number included for call back. Care Teams (unrecognized sec tion and content) Supervisor Border Department Relationship Specialty Start Date End Date Shaikh Franklin MD [address] [place] [phone] PCP - oJhan VASQUEZ 07/14/23 Dion Frazier MD [address] [place] [phone] PCP - General Family Medicine 04/07/24 Ashley Elizondo NP [address] [place] [address] Nurse Practitioner Family Medicine 04/07/24 Supervisor Border Department Relationship Specialty Start Date End Date Shaikh Franklin MD [address] [place] [phone] PCP - Johan VASQUEZ 07/14/23 Dion Frazier MD [address] [place] [phone] PCP - General Family Medicine 04/07/24 Ashley Elizondo NP [address] [place] [address] Nurse Practitioner Family Medicine 04/07/24 Supervisor Border Department Relationship Specialty Start Date End Date Shaikh Franklin MD [address] [place] [phone] PCP - Johan VASQUEZ 07/14/23 Dion Frazier MD [address] [place] [phone] PCP - General Family Medicine 04/07/24 Ashley Elizondo NP [address] [place] [address] Nurse Practitioner Family Medicine 04/07/24 Javid Marie MA Family Medicine 06/04/24 Supervisor Border Department Relationship Specialty Start Date End Date Shaikh Franklin MD [address] [place] [phone] PCP - Johan ND 07/14/23 Dion Frazier MD [address] [place] [address] PCP - General Family Medicine 04/07/24 Ashley Elizondo NP [address] [place] [address] Nurse Practitioner Family Medicine 04/07/24 Javid Marie MA Family Medicine 06/04/24 Supervisor Border Department Relationship Specialty Start Date End Date Shaikh Franklin MD [address] [place] [phone] PCP - Johan ND 07/14/23 Dion Frazier MD [address] [place] [phone] PCP - General Family Medicine 04/07/24 Ashley Elizondo, SHANELL [address] [place] [address] Nurse Practitioner Family Medicine 04/07/24 Javid Marie MA Family Medicine 06/04/24 Supervisor Border Department Relationship Specialty Start Date End Date Shaikh Franklin MD [address] [place] [phone] PCP Lenard Prado ND 07/14/23 Dion Frazier MD [address] [place] [phone] PCP - General Family Medicine 04/07/24 Ashley Elizondo NP [address] [place] [address] Nurse Practitioner Family Medicine 04/07/24 Javid Marie MA [facility] Medicine 06/04/24 Supervisor Border Department Relationship Specialty Start Date End Date Shaikh Franklin MD [address] [place] [phone] PCP - Johan VASQUEZ 07/14/23 Dion Frazier MD [address] [place] [phone] PCP - General Family Medicine 04/07/24 Ashley Elizondo NP [address] [place] [address] Nurse Practitioner Family Medicine 04/07/24 Javid Marie MA Family Medicine 06/04/24 Supervisor Border Department Relationship Specialty Start Date End Date Shaikh Franklin MD [address] [place] [phone] PCP - Johan VASQUEZ 07/14/23 Dion Frazier MD [address] [place] [phone] PCP - General Family Medicine 04/07/24 Ashley Elizondo NP [address] [place] [phone] Nurse Practitioner Family Medicine 04/07/24 Javid Marie MA [facility] 06/04/24 Supervisor Border Department Relationship Specialty Start Date End Date Shaikh Franklin MD [address] [place] [phone] PCP - Johan ND 07/14/23 Dion Frazier MD [address] [place] [phone] PCP - General Family Medicine 04/07/24 Javid Marie MA [facility] 06/04/24 Supervisor Border Department Relationship Specialty Start Date End Date Shaikh Franklin MD [address] [place] [phone] PCP - Johan ND 07/14/23 Dion Frazier MD [address] [place] [phone] PCP - General Family Medicine 04/07/24 Javid Marie MA [facility] 06/04/24 Supervisor Border Department Relationship Specialty Start Date End Date Shaikh Franklin MD [address] [place] [phone] PCP - Johan ND 07/14/23 Dion Frazier MD [address] [place] [phone] PCP - General Family Medicine 04/07/24 Javid Marie MA [facility] 06/04/24 Team Status: Active Member Role Status Dates Ashley Elizondo NP-C Primary Care Provider Ac tive Team Status: Active Member Role Status Dates Ashley Giana Elizondo , UNIVERSITY PROFESSOR-C Primary Care Provider Ac tive Start: February 24, 2025 Royal Mai MD Admit Provider Active S tart: February 24, 2025 Naldo Quinn MD Other Provider Active Start: Feb us2024 Jerardo Rosa MD Other Provider Active Start: A ugust 2024 Maricruz Oseguera MD Other Provider Active Star t: February 24, 2025 Asher Lan , DO Attending Provider Active S tart: February 24, 2025 Ahser Lan , Other Provider Active Start : February 24, 2025 Junior Brand II, MD Other Provider Active S tart: February 24, 2025 Juan Moralez DO Other Provider Active Start: February 24, 2025 Goals (unrecognized section and content) Goals may be documented in a n alternate section FOR RECORDS PERTAINING TO PATIENTS WHO ARE [...] BE BASED ON THE PRIMARY CLINICAL RECORDS. [employer] [facility]. provides no warranty or guarantee of the accuracy or completeness of information in this document.
[2025-03-07 22:18] VITALS: BP 126/59; PULSE 71; O2SAT 92
== END 2025-03-08 00:06 | disposition home or self-care (01) ==
PROVIDERS: Emergency Provider Emergency Medicine
DX: M25.552 Pain in left hip (principal); Z91.81 History of falling; F03.90 Unspecified dementia, unspecified severity, without behavioral disturbance, psychotic disturbance, mood disturbance, and anxiety; Z66 Do not resuscitate; S72.112D Displaced fracture of greater trochanter of left femur, subsequent encounter for closed fracture with routine healing; Z96.652 Presence of left artificial knee joint
CPT/HCPCS: 70450; 72125; 73502; 73552; 99284

== ENCOUNTER 2025-03-23 18:13 | Emergency (ER) | payer MEDICARE, SELFPAY ==
[2025-03-23] VITALS (27 sets, daily range): BP systolic 125–166; BP diastolic 72–102; PULSE 66–85; TEMP 36.6; O2SAT 82–98; BMI 22.5
--- NOTE | 2025-03-23 18:22 | XR_ITS ---
The [place] [id number] Patient Name: DERRICK MONAE MRN: [id number] date: 1935 Sex: M Assigned Patient Location: ED.MAIN Current Patient Location: ED.MAIN Accession/Order Number: [id number] Exam Date: 03/23/2025 18:52 Report Date: 03/23/2025 19:01 At the request of: MED KAISER MD Procedure: XR chest 1V PA CHEST: CLINICAL HISTORY: Psychiatric clearance COMPARISON: CT 04/23/2023 The heart is enlarged in size. The lungs are clear. The pulmonary vasculature is normal. Mediastinum and hilar regions are unremarkable. No pleural effusions are seen. Visualized bones are intact. XR/XR chest 1V IMPRESSION: NEGATIVE CHEST. Impression dictated by: Dk Daniels M.D. 03/23/2025 7:01 PM Dictation Location: [place] [address] Electronically authenticated by: [id number] Y Date: 03/23/2025 19:01
--- NOTE | 2025-03-23 18:22 | ECG_ITS ---
The [facility] Test Date: 2025-03-23 Pat Name: DERRICK MONAE Department: Room: - Gender: Male [employer]obile [employer]er: : 1935 Requested By: [id number] Order Number: [id number] Reading MD: EMORY HASSAN Measurements Intervals [place] Rate: 76 P: 64 GA: 168 QRS: 70 QRSD: 90 T: 52 QT: 392 QTc: 422 Interpretive Statements 1100 Sinus rhythm 9110 normal ECG Compared to ECG 05/04/2024 17:58:07 No significant changes Electronically Signed On 03-24-2025 14:06:03 EDT by EMORY HASSAN
--- NOTE | 2025-03-23 18:23 | CT_ITS ---
The [address] [address] Patient Name: DERRICK MONAE MRN: [id number] date: 1935 Sex: M Assigned Patient Location: ED.MAIN Current Patient Location: ED.MAIN Accession/Order Number: [id number] Exam Date: 03/23/2025 18:52 Report Date: 03/23/2025 19:05 At the request of: MED KAISER MD Procedure: CT head/brain wo con CT BRAIN WITHOUT CONTRAST: CLINICAL HISTORY: Fall MENTAL status COMPARISON: None TECHNIQUE: Contiguous axial unenhanced images were obtained through the brain. This CT exam was performed using one or more following dose reduction techniques: Automated exposure control, adjustment of the mA and/or kV according to patient size, or use of iterative reconstruction technique. FINDINGS: There is no evidence of midline shift, intra or extra-axial fluid collection, hemorrhage or CT evidence of acute large vascular distribution stroke. 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 Minimal gliosis right posterior insular region. Otherwise [id number] chronic small vessel ischemic disease. Mild central involutional changes. There are vascular calcifications. Cataract surgery Visualized paranasal sinuses are clear. The surrounding soft tissues are normal. CT/CT head/brain wo con IMPRESSION: NO ACUTE INTRACRANIAL ABNORMALITY. REMOTE AREAS OF RIGHT MCA STROKE NOTED. Impression dictated by: Dk Daniels M.D. 03/23/2025 7:05 PM Dictation Location: [place] [address] Electronically authenticated by: [id number] Y Date: 03/23/2025 19:05
--- NOTE | 2025-03-23 18:28 | ED.GENADUL1 ---
HPI HPI - General Adult General Chief complaint: Altered Mental Status Stated complaint: OTHER Time Seen by Provider: 03/23/25 18:22 History of Present Illness HPI narrative: 89-year-old male presents to the emergency department for psychiatric evaluation from an ECF. ECF sent him here because they are concerned that they cannot handle him any longer and they were looking to have him sent to a geriatric psychiatric facility. He cannot give any history whatsoever. He has dementia. Related Data Home Medications ?Medication ?Instructions ?Recorded ?Confirmed aspirin 81 mg tablet,delayed 81 mg PO DAILY 03/02/23 02/23/25 release (Adult Aspirin Regimen) donepezil 10 mg tablet 10 mg PO BEDTIME 05/04/24 02/23/25 memantine 10 mg tablet 10 mg PO BID 05/04/24 02/23/25 benzonatate 100 mg capsule mg PO 02/23/25 sertraline 50 mg tablet mg 02/23/25 Previous Rx's ?Medication ?Instructions ?Recorded albuterol sulfate 90 mcg/actuation 2 inh inhalation Q4H PRN shortness 03/02/23 aerosol inhaler of breath or wheezing #8.5 grams Allergies Allergy/AdvReac Type Severity Reaction Status Date / Time Sulfa (Sulfonamide Allergy Mild Rash Verified 02/23/25 20:55 Antibiotics) amoxicillin (From Augmentin) Allergy Unknown Unknown Verified 03/07/25 21:06 clavulanic acid (From Allergy Unknown Unknown Verified 03/07/25 21:06 Augmentin) pineapple Allergy Unknown Unknown Verified 03/07/25 21:06 eggs Allergy Mild Rash Uncoded 02/23/25 20:55 Opioid HPI Opioid Management Most Recent Opioid Data: Last Pain Scale 3 03/07/25, 21:04 Review of Systems ROS Narrative Not obtainable, dementia Exam Narrative Exam Narrative: Nurses note and vital signs reviewed and patient is not hypoxic. General: The patient appears in no apparent distress. Patient is resting comfortably on cart. Skin: Warm, dry, no pallor noted. There is no rash noted. Head: Normocephalic, atraumatic Eye: Normal conjunctiva, no drainage Ears, Nose, Mouth, and Throat: oral mucosa is moist. Nares patent. Cardiovascular: Regular Rate and Rhythm Respiratory: Patient is in no distress, no accessory muscle use, lungs are clear to auscultation, no wheezing, rales or rhonchi Back: non-tender GI: Soft and nontender Musculoskeletal: The patient has no evidence of calf tenderness, no pitting edema, symmetrical pulses noted bilaterally Neurological: Awake and alert. He can tell me his name but is not oriented otherwise. He moves all 4 extremities. He seems to have trouble understanding simple commands Psychiatric: Not uncooperative Medical Decision Making MDM Narrative Medical decision making narrative: Tests are ordered and the patient is signed out to Dr. Sullivan at change of shift. Differential Diagnosis Differential Diagnosis: Dementia, UTI Discharge Plan Discharge Patient Disposition: Still a Patient
[2025-03-23 18:51] LABS: Hematocrit 37.3 % (42.0-54.0); Hemoglobin 12.5 g/dL (14.0-18.0); Immature Granulocytes Abs Auto 0.01 10^3/uL (0.00-0.03); Immature Granulocytes Pct Auto 0.1 % (0.0-0.5); Lymphocytes Absolute Auto 0.9 10^3/uL (1.2-3.8); Mean Corpuscular HGB Conc 33.5 g/dL (29.9-35.2); Mean Corpuscular Hemoglobin 30.9 pg (25.9-34.0); Mean Corpuscular Volume 92.1 fL (80.0-94.0); Platelet Count 362 10^3/uL (150-450); Red Blood Count 4.05 10^6/uL (4.70-6.10); White Blood Count 7.5 10^3/uL (4.0-11.0)
--- OUTSIDE RECORDS SUMMARY | 2025-03-23 18:53 | XMS_ITS | CCD ---
Author Organization [facility] Care Team Providers Care Printer Slotter Helper Name Role Phone SHAIKH FRANKLIN Consulting Unavailable SHAIKH FRANKLIN Attending Unavailable SAMANTHA FRANKLINIKH Admitting Unavailable SAMANTHA FRANKLINIKH Primary Care Unavailable Unavailable Primary Care Provider Shaikh Mccallum MD Unavailable Dion Frazier MD Primary Care Provider [phone] Mikhail AEROPHYSICIST, Ashley Unavailable [phone] Javid Marie MA Unavailable Unavailable Elizondo AEROPHYSICIST, Ashley Unavailable [phone] ASHLEY ELIZONDO Attending UnavailDION Rose Attending Unavailable DION FRAZIER Attending Unavailable SHAIKH FRANKLIN Attending Unavailable ASHLEY ELIZONDO Attending Unavailabl e ASHLEY ELIZONDO Attending Unavailabl e MARGARITA AREVALO Attending Unavailable MARGARITA AREVALO Attending Unavailable KARIME OLIVAS Referring Unavailable DOHERPREET Referring Unavailable DOPREET CASTRO Attending Unavailable DOHERKARIMES Referring Unavailable DOHERPREET Attending Unavailable RIGOBERTO, JONAS [...] Referring Unavailable FREDDIEDION Primary Care Unavailable Mikhail AEROPHYSICIST-C, Ashley Faria Primary Care Provid er Royal Mai MD Admit Provider Naldo Quinn MD Other Provider Jerardo Rsoa MD Other Provider Maricruz Oseguera MD Other Provider [phone] Asher Lan DO Attending Provider Asher Lan DO Other Provider [phone] Junior Brand MD Other Provider [phone] Juan Moralez DO Other Provider Temo Arora Attending Unavailable Jerardo Rosa Consulting Unavailable Ashley Elizondo Primary Care Unavaila Royal Griffith Admitting Unavailable Maricruz Oseguera Consulting Unavailable Asher Lan Consulting Unavailable Junior Brand II Consulting Unavailabl e Juan Moralez Consulting Unavailable Allergies Allergy Classification Reported Allergen(s) Allergy Type Date of Onset Reaction(s) Facility (20 sources) Sulfonamides (Antibiotic); Translations: [SULFA (SULFONAMIDE ANTIBIOTICS)] Propensity to adverse reactions 05-17-[address] [facility] Work Phone: Comment on above: pt confused at this time. (12 sources) Pineapple; Translations: [PINEAPPLE] Propensity to adverse reactions to drug 04-16-20 11 Other: See Comments [facility] Work Phone: (12 sources) Bananas Propensity to adverse reactions 06-30-20 23 [facility] Healthcare (17 sources) egg shell Propensity to adverse reactions 10-29-19 17 [facility] Healthcare (17 sources) pineapple allergenic extract Drug Allergy 04-16-20 11 Other [facility] Healthcare (17 sources) Sulfanilamide Propensity to adverse reactions 06-30-20 23 [facility] Healthcare (19 sources) Amoxicillin-Pot Clavulanate; Translations: [AMOXICILLIN-POT CLAVULANATE] Drug Allergy 10-29-19 17 Unknown [facility] Healthcare (17 sources) Egg-Derived Products Drug Intolerance 11-04-20 03 [facility] (1 source) OTHER; Translations: [OTHER] Propensity to adverse reactions (disorder) 05-17-20 [facility] Repository (2 sources) egg shell membrane; Translations: [EGGSHELL MEMBRANE] Propensity to adverse reactions to food (disorder) 10-29-19 [facility] Repository (2 sources) Amoxicillin; Translations: [amoxicillin] Drug Allergy 02-25-20 Unknown Reaction [facility] (2 sources) egg extract; Translations: [egg] Drug Allergy 02-25-20 Unknown Reaction [facility] Comment on above: pt confused at this time (1 source) Sulfonamides (Antibiotic) Drug allergy (disorder) 02-25-20 [facility] Repository (1 source) pineapple Drug allergy (disorder) 02-25-20 [facility] Repository Medications Current Medications Medication Drug Class(es) Dates Sig (Normalized) Sig (Original) [id number] 200 actuat albuterol 0.09 mg/actuat metered dose [...] NASE) 50 mcg/actuation nasal spray Use 1 [place] in the nose once daily. Active 60 actuat fluticasone propionate 0.113 mg/actuat / salmeterol xinafoate 0.014 mg/actuat dry powder inhaler (9 sources) Corticosteroid, beta2-Adrenergic Agonist Start: 02-24-2025 Fluticasone Propion-Salmeterol 113-14 mcg/actuation aerosol powdr breath activated Active 1 INH INHALATION Twice daily February 24, 2025 12:00am Complies with drug therapy Start: 04-16-2011 take 1 puff(s) by [facility] twice daily fluticasone-salmeterol (ADVAIR DISKUS) 250-50 mcg/dose [...] hydrochloride 10 mg oral tablet (20 sources) X-qfbjge-A-aspartate Receptor Antagonist Start: 04-30-2024 End: 04-30-2025 take [...] 1 capsule by inhalation once daily Tiotropium Hilliard 18 mcg capsule, w/inhalation device Active 1 [...] Coronary arteriosclerosis; Translations: [Atherosclerotic heart disease of [place] coronary artery without angina pectoris] Onset: 06-21-2014 [...] gap [Moles/Vol] 7.5 mmol/L Normal 6.0-15.0 [facility] Comment on above: Performed By: #### P TT, BMP, CBC, PT #### [facility] [address] [place] [address] [place] Calcium [Mass/Vol] 8.3 mg/dL Low 8.6-10.3 [facility] Comment on above: Performed By: #### P TT, BMP, CBC, PT #### [facility] [address] [place] [address] [place] Chloride [Moles/Vol] 111 mmol/L High 98-107 [facility] Comment on above: Performed By: #### P TT, BMP, CBC, PT #### [facility] [address] CO2 [Moles/Vol] 28.1 mmol/L Normal 21.0-31.0 [facility] Comment on above: Performed By: #### P TT, BMP, CBC, PT #### [facility] [address] Creatinine [Mass/Vol] 0.92 mg/dL Normal 0.70-1.30 [facility] Comment on above: Performed By: #### P TT, BMP, CBC, PT #### [facility] [address] [place] [address] [place] Creatinine Clr Calc Pharmacy 51.05 Normal [facility] Comment on above: Result Comment: PERF ORMED BY: [place] [address] PATHOLOGIST INDUSTRIAL RELATIONS DIRECTOR LAWANDA LORENZO M.D. Performed By: #### P TT, BMP, CBC, PT #### [place] [address] [place] GFR/1.73 sq M.predicted MDRD (S/P/Bld) [Vol rate/Area] mL/min/{1.73_m2} Normal [facility] Comment on above: Performed By: #### P TT, BMP, CBC, PT #### [place] [address] [place] Glucose [Mass/Vol] 104 mg/dL High 70-100 [facility] Comment on above: Result Comment: [place] Glucose Reference Range is dependent on time and content of last meal. Glucose of more than 200 mg/dL in a nonstressed, ambulatory subject supports the diagnosis of Diabetes Mellitus. ADA recommended reference range Performed By: #### P TT, BMP, CBC, PT #### [facility] [address] Potassium [Moles/Vol] 3.6 mmol/L Normal 3.5-5.1 [facility] Comment on above: Performed By: #### P TT, BMP, CBC, PT #### [address] [place] [address] [place] Sodium [Moles/Vol] 143 mmol/L Normal 136-145 [facility] Comment on above: Performed By: #### P TT, BMP, CBC, PT #### [facility] [address] Urea nitrogen [Mass/Vol] 19 mg/dL Normal 7-25 [facility] Comment on above: Performed By: #### P TT, BMP, CBC, PT #### [facility] [address] hip LT wo conon CT hip LT wo con [facility] [address] [place] [address] CT Scan Report Signed Patient: Derrick Monae MR#: [id number] : 1935 Acct:[id number] Age/Sex: 89 / M ADM Date: 02/24/25 Loc: Room: [address] [place] [address] Type: ADM IN Attending Dr: Naldo Quinn [...] Daniels M.D. 02/24/2025 9:03 AM Dictation Location: [place] [address] Transcribed By: ESPERANZA 02/24/25902 Dictated By: Dk Daniels MD 02/24/25 0859 Signed By: 02/24/25902 Normal [facility] Complete Blood Count Auto Di ffon 02-24-2025 Basophils (Bld) [#/Vol] 0.1 10*3/uL Normal 0.0-0.2 [facility] Comment on above: Result Comment: PERF ORMED BY: [place] [address] PATHOLOGIST INDUSTRIAL RELATIONS DIRECTOR LAWANDA LORENZO M.D. Performed By: #### P TT, BMP, CBC, PT #### [address] Basophils/100 WBC (Bld) 1.7 % Normal . [facility] Comment on above: Performed By: #### P TT, BMP, CBC, PT #### [address] Eosinophils (Bld) [#/Vol] 0.2 10*3/uL Normal 0.0-0.45 [facility] Comment on above: Performed By: #### P TT, BMP, CBC, PT #### [address] Eosinophils/100 WBC (Bld) 4.3 % Normal . [facility] Comment on above: Performed By: #### P TT, BMP, CBC, PT #### [address] Erythrocyte distribution width (RBC) [Ratio] 13.8 % Normal 12.0-14.8 [facility] Comment on above: Performed By: #### P TT, BMP, CBC, PT #### [address] Hematocrit (Bld) [Volume fraction] 34.7 % Low 38.8-50.0 [facility] Comment on above: Performed By: #### P TT, BMP, CBC, PT #### [address] Hemoglobin (Bld) [Mass/Vol] 11.7 g/dL Low 13.0-17.0 [facility] Comment on above: Performed By: #### P TT, BMP, CBC, PT #### [address] Lymphocytes (Bld) [#/Vol] 1.0 10*3/uL Normal 1.00-4.8 [facility] Comment on above: Performed By: #### P TT, BMP, CBC, PT #### [address] Lymphocytes/100 WBC (Bld) 18.2 % Normal . [facility] Comment on above: Performed By: #### P TT, BMP, CBC, PT #### [address] MCH (RBC) [Entitic mass] 31.6 pg Normal 27.5-35.2 [facility] Comment on above: Performed By: #### P TT, BMP, CBC, PT #### [address] MCV (RBC) [Entitic vol] 93.4 fL Normal 83.5-101 [facility] Comment on above: Performed By: #### P TT, BMP, CBC, PT #### [address] Mean Corpuscular HGB Conc 33.8 g/dL Normal 32.5-35.6 [facility] Comment on above: Performed By: #### P TT, BMP, CBC, PT #### [address] Monocytes (Bld) [#/Vol] 0.6 10*3/uL Normal 0.0-0.8 [facility] Comment on above: Performed By: #### P TT, BMP, CBC, PT #### [address] Monocytes/100 WBC (Bld) 11.7 % Normal . [facility] Comment on above: Performed By: #### P TT, BMP, CBC, PT #### [facility] [address] [place] [address] [place] Neutrophils (Bld) [#/Vol] 3.5 10*3/uL Normal 1.8-7.7 [facility] Comment on above: Performed By: #### P TT, BMP, CBC, PT #### [facility] [address] Neutrophils/100 WBC (Bld) 64.1 % Normal . [facility] Comment on above: Performed By: #### P TT, BMP, CBC, PT #### [facility] [address] NRBC% 0.0 /100{WBC} Normal 0-0.5 [facility] Comment on above: Performed By: #### P TT, BMP, CBC, PT #### [address] Platelet mean volume (Bld) [Entitic vol] 7.4 fL Normal 6.6-10.1 [facility] Comment on above: Performed By: #### P TT, BMP, CBC, PT #### [place] [address] [place] Platelets (Bld) [#/Vol] 279 10*3/uL Normal 150-450 [facility] Comment on above: Performed By: #### P TT, BMP, CBC, PT #### [place] [address] [place] RBC (Bld) [#/Vol] 3.71 10*6/uL Low 3.90-5.60 [facility] Comment on above: Performed By: #### P TT, BMP, CBC, PT #### [facility] [address] [place] [address] [place] WBC (Bld) [#/Vol] 5.5 10*3/uL Normal 4.1-10.5 [facility] Comment on above: Performed By: #### P TT, BMP, CBC, PT #### [place] [address] [place] White Blood Count 5.5 [CFU]/mL Normal 4.1-10.5 [facility] Comment on above: Performed By: #### P TT, BMP, CBC, PT #### [address] Partial Thromboplastin Timeo n 02-24-2025 aPTT Coag (Bld) [Time] 30.7 s Normal 25.1-36.5 [facility] Comment on above: Result Comment: A he matocrit value greater than 55% may lead to inaccurate results in coagulation testing. Patients having hematocrit values >55% require a special collection tube for coagulation studies. Please contact the laboratory at [phone] for redraw instructions. PERFORMED BY: [place] [address] PATHOLOGIST INDUSTRIAL RELATIONS DIRECTOR LAWANDA LORENZO M.D. Performed By: #### P TT, BMP, CBC, PT #### [address] Prothrombin Time INRon 02-24 INR Coag (PPP) [Relative time] 1.1 {INR} Normal [facility] Comment on above: Result Comment: [...] #### P TT, BMP, CBC, PT #### [place] [id number] [facility] PT Coag (PPP) [Time] 12.4 s Normal 9.0-12.9 [facility] Comment on above: Result Comment: A he matocrit value greater than 55% may lead to inaccurate results in coagulation testing. Patients having hematocrit values >55% require a special collection tube for coagulation studies. Please contact the laboratory at [phone] for redraw instructions. Performed By: #### P TT, BMP, CBC, PT #### [address] [place] [address] [facility] XR pelvis 1-2Von 02-24-2025 XR pelvis 1-2V [facility] [address] [place] [address] XRay Report Signed Patient: Derrick Monae MR#: [id number] : 1935 Acct:[id number] Age/Sex: 89 / M ADM Date: 02/24/25 Loc: Room: [address] [place] [address] Type: ADM IN Attending Dr: Naldo Quinn [...] Portillo M.D. 02/24/2025 12:10 PM Dictation Location: [place] [address] Transcribed By: [facility] 02/24/25 1210 Dictated By: Tim Portillo DO 02/24/25 1204 Signed By: 02/24/25 1210 Normal [facility] CBC WITH AUTO DIFFERENTIALon 02-11-2025 BASOPHILS ABSOLUTE COUNT (10*3/UL) BY AUTOMATED COUNT 0.1 10*3/uL Normal 0.0-0.[address] [facility] Comment on above: Performed By: #### C MINDY, PINR, 06627-3, [facility], 80600-8, 38597-7 #### [facility] ([id number]) [address] [place] [address], [place] [address] BASOPHILS RELATIVE PERCENT BY AUTOMATED COUNT 1.2 % Normal [facility] Comment on above: Performed By: #### C BCA, PINR, 11545-8, CMP, 57520-9, 77980-2 #### [facility] ([id number]) [address] [place] [address] 12996 CELLAVISION DIFFERENTIAL TYPE AUTOMATED DIFFERENTIAL Normal [facility] Comment on above: Performed By: #### C BCA, PINR, 48616-3, CMP, 39143-4, 28029-2 #### [facility] ([id number]) [address] [place] [address]3421 Eosinophils (Bld) [#/Vol] 0.2 10*3/uL Normal 0.0-0.[address] [facility] Comment on above: Performed By: #### C BCA, PINR, 34555-8, CMP, 37620-2, 08931-2 #### [facility] ([id number]) [address] [place] [address]78 EOSINOPHILS RELATIVE PERCENT BY AUTOMATED COUNT 3.5 % Normal [facility] Comment on above: Performed By: #### C BCA, PINR, 03323-4, CMP, 26812-1, 35125-8 #### [facility] ([id number]) [address] [place] [address] 91245 Erythrocyte distribution width (RBC) [Ratio] 14.3 % Normal 11.5-[address] [facility] Comment on above: Performed By: #### C BCA, PINR, 67532-5, CMP, 31952-0, 61535-2 #### [facility] ([id number]) [address] [place] [address] 01243 Hematocrit (Bld) [Volume fraction] 32.4 % Low 39-[address] [facility] Comment on above: Performed By: #### C BCA, PINR, 26286-5, CMP, 55272-3, 29673-7 #### [facility] ([id number]) [address] [place] [address] 86576 Hemoglobin (Bld) [Mass/Vol] 11.1 g/dL Low 13-[address] [facility] Comment on above: Performed By: #### C BCA, PINR, 34219-3, CMP, 02392-6, 67190-9 #### [facility] ([id number]) [address] [place] [address] 30438 LYMPHOCYTES ABSOLUTE COUNT (10*3/UL) BY AUTOMATED COUNT 1.0 10*3/uL Normal 1.0-3.[address] [facility] Comment on above: Performed By: #### C BCA, PINR, 51807-5, CMP, 92301-7, 40212-9 #### [facility] ([id number]) [address] [place] [address] 14664 LYMPHOCYTES RELATIVE PERCENT BY AUTOMATED COUNT 17.6 % Normal [facility] Comment on above: Performed By: #### C BCA, PINR, 32096-9, CMP, 32148-3, 95399-6 #### [facility] ([id number]) [address] [place] [address] 81317 MCH (RBC) [Entitic mass] 31.4 pg Normal 27-[address] [facility] Comment on above: Performed By: #### C BCA, PINR, 23029-1, CMP, 44398-3, 68395-4 #### [facility] ([id number]) [address] [place] [address] 94494 MCHC (RBC) [Mass/Vol] 34.2 g/dL Normal 32-36 [facility] Comment on above: Performed By: #### C BCA, PINR, 43414-3, CMP, 02307-4, 33331-6 #### [facility] ([id number]) [address] [place] [address] 94967 MCV (RBC) [Entitic vol] 92 fL Normal 80-100 [facility] Comment on above: Performed By: #### C BCA, PINR, 07252-1, CMP, 92238-3, 98989-6 #### [facility] ([id number]) [address] [place] [address] 79594 MONOCYTES ABSOLUTE COUNT (10*3/UL) BY AUTOMATED COUNT 0.7 10*3/uL Normal 0.0-0.[address] [facility] Comment on above: Performed By: #### C BCA, PINR, 95508-5, CMP, 54574-9, 86616-7 #### [facility] ([id number]) [address] [place] [address] 90550 MONOCYTES RELATIVE PERCENT BY AUTOMATED COUNT 12.2 % Normal [facility] Comment on above: Performed By: #### C BCA, PINR, 91930-6, CMP, 06993-5, 89234-2 #### [facility] ([id number]) [address] [place] [address] 33118 NEUTROPHILS ABSOLUTE COUNT BY AUTOMATED COUNT 3.6 10*3/uL Normal 1.5-6.[address] [facility] Comment on above: Performed By: #### C BCA, PINR, 87496-6, CMP, 25596-3, 67617-0 #### [facility] ([id number]) [address] [place] [address] 18835 NEUTROPHILS RELATIVE PERCENT BY AUTOMATED COUNT 65.5 % Normal [facility] Comment on above: Performed By: #### C BCA, PINR, 62463-4, CMP, 51974-6, 42560-4 #### [facility] ([id number]) [address] [place] [address] 34961 Platelet mean volume (Bld) [Entitic vol] 8.3 fL Normal 7-[address] [facility] Comment on above: Performed By: #### C BCA, PINR, 46594-6, CMP, 58166-4, 81943-7 #### [facility] ([id number]) [address] [place] [address] 61788 Platelets (Bld) [#/Vol] 184 10*3/uL Normal 150-[address] [facility] Comment on above: Performed By: #### C BCA, PINR, 02479-7, CMP, 12559-9, 98023-3 #### [facility] ([id number]) [address] [place] [address] 58817 RBC COUNT 3.53 X10E12/L Low 4.1-5.[address] [facility] Comment on above: Performed By: #### C BCA, PINR, 25892-3, CMP, 10971-0, 79438-8 #### [facility] ([id number]) [address] [place] [address] 27681 WBC (Bld) [#/Vol] 5.4 10*3/uL Normal 4-11 [facility] Comment on above: Performed By: #### C BCA, PINR, 89982-2, CMP, 51302-6, 25001-7 #### [facility] ([id number]) [address] [place] [address] 95191 COMPREHENSIVE METABOLIC PANE Tim 02-11-2025 Albumin [Mass/Vol] 3.0 g/dL Low 3.2-5.3 [facility] Comment on above: Performed By: #### C BCA, PINR, 26728-0, CMP, 21920-2, 39882-5 #### [facility] ([id number]) [address] [place] [address] 90103 ALP [Catalytic activity/Vol] 84 U/L Normal 39-[address] [facility] Comment on above: Performed By: #### C BCA, PINR, 22589-4, CMP, 92836-7, 45624-0 #### [facility] ([id number]) [address] [place] [address] ALT [Catalytic activity/Vol] 13 U/L Normal <=[address] [facility] Comment on above: Performed By: #### C BCA, PINR, 89600-8, CMP, 36746-8, 76981-9 #### [facility] ([id number]) [address] [place] [address] 04366 Anion gap [Moles/Vol] 5 mmol/L Normal 5-15 [facility] Comment on above: Performed By: #### C BCA, PINR, 84977-3, CMP, 57436-5, 41530-1 #### [facility] ([id number]) [address] [place] [address] 09524 AST [Catalytic activity/Vol] 13 U/L Normal <=[address] [facility] Comment on above: Performed By: #### C BCA, PINR, 41059-8, CMP, 67207-1, 26779-0 #### [facility] ([id number]) [address] [place] [address] 37539 Bilirubin [Mass/Vol] 0.8 mg/dL Normal 0.3-1.2 [facility] Comment on above: Performed By: #### C BCA, PINR, 67601-7, CMP, 10125-5, 07451-5 #### [facility] ([id number]) [address] [place] [address] 17441 Calcium [Mass/Vol] 8.0 mg/dL Low 8.5-10.5 [facility] Comment on above: Performed By: #### C BCA, PINR, 97155-8, CMP, 60696-6, 77375-6 #### [facility] ([id number]) [address] [place] [address] 35218 Chloride [Moles/Vol] 107 mmol/L Normal 98-109 [facility] Comment on above: Performed By: #### C BCA, PINR, 71610-8, CMP, 25337-9, 48122-4 #### [facility] ([id number]) [address] [place] [address] 38730 CO2 [Moles/Vol] 26 mmol/L Normal 22-[address] [facility] Comment on above: Performed By: #### C BCA, PINR, 18568-3, CMP, 05084-9, 24557-3 #### [facility] ([id number]) [address] [place] [address] 23512 Creatinine [Mass/Vol] 0.73 mg/dL Normal 0.70-1.20 [facility] Comment on above: Result Comment: METH OD TRACEABLE TO IDMS STANDARD Performed By: #### C BCA, PINR, 13219-6, [facility], 41297-3, 97766-3 #### [facility] ([id number]) [address] [place] [address] 84660 GFR/1.73 sq M.predicted among non-blacks MDRD (S/P/Bld) [Vol rate/Area] 88 mL/min/{1.73_m2} Normal >=[address] [facility] Comment on above: Result Comment: eGFR not reported due to non-numeric value for Creatinine. Reported eGFR is based on the CKD-EPI 2021 equation that does not use a race coefficient. Performed By: #### C BCA, PINR, 99744-4, [facility], 85266-4, 99940-5 #### [facility] ([id number]) [address] [place] [address] 07318 Glucose [Mass/Vol] 102 mg/dL High 65-99 [facility] Comment on above: Performed By: #### C BCA, PINR, 39302-5, CMP, 33718-8, 80299-3 #### [facility] ([id number]) [address] [place] [address] 98831 Potassium [Moles/Vol] 3.4 mmol/L Low 3.5-5.0 [facility] Comment on above: Performed By: #### C BCA, PINR, 76262-0, CMP, 92649-9, 62719-1 #### [facility] ([id number]) [address] [place] [address] 22650 Protein [Mass/Vol] 5.4 g/dL Low 6.0-8.0 [facility] Comment on above: Performed By: #### C BCA, PINR, 07585-1, CMP, 24877-9, 67408-2 #### [facility] ([id number]) [address] [place] [address] 77994 Sodium [Moles/Vol] 138 mmol/L Normal 134-146 [facility] Comment on above: Performed By: #### C BCA, PINR, 56409-1, CMP, 25758-7, 97252-1 #### [facility] ([id number]) [address] [place] [address] 30998 Urea nitrogen [Mass/Vol] 20 mg/dL Normal 5-[address] [facility] Comment on above: Performed By: #### C BCA, PINR, 93217-0, CMP, 19588-6, 25601-5 #### [facility] ([id number]) [address] [place] [address] 11002 MAGNESIUMon 02-11-2025 Magnesium [Mass/Vol] 1.9 mg/dL Normal 1.8-2.6 [facility] Comment on above: Performed By: #### C BCA, PINR, 99001-6, CMP, 22828-5, 52465-6 #### [facility] ([id number]) [address] [place] [address] 93214 POTASSIUMon 02-11-2025 Potassium [Moles/Vol] 4.0 mmol/L Normal 3.5-5.0 [facility] Comment on above: Performed By: #### C BCA, PINR, 51657-2, CMP, 26390-2, 21056-9 #### [facility] ([id number]) [address] [place] [address] 55738 CBC WITH AUTO DIFFERENTIALon 02-10-2025 BASOPHILS ABSOLUTE COUNT (10*3/UL) BY AUTOMATED COUNT 0.1 10*3/uL Normal 0.0-0.[address] [facility] Comment on above: Performed By: #### C BCA, PINR, 89115-5, CMP, 24717-8, 10481-0 #### [facility] ([id number]) [address] [place] [address] 66018 BASOPHILS RELATIVE PERCENT BY AUTOMATED COUNT 0.9 % Normal [facility] Comment on above: Performed By: #### C BCA, PINR, 67974-2, CMP, 36982-8, 76055-2 #### [facility] ([id number]) [address] [place] [address] 63269 CELLAVISION DIFFERENTIAL TYPE AUTOMATED DIFFERENTIAL Normal [facility] Comment on above: Performed By: #### C BCA, PINR, 98321-4, CMP, 06458-7, 48443-9 #### [facility] ([id number]) [address] [place] [address] 81285 Eosinophils (Bld) [#/Vol] 0.2 10*3/uL Normal 0.0-0.[address] [facility] Comment on above: Performed By: #### C BCA, PINR, 59163-0, CMP, 90085-9, 88176-7 #### [facility] ([id number]) [address] [place] [address] 94909 EOSINOPHILS RELATIVE PERCENT BY AUTOMATED COUNT 2.4 % Normal [facility] Comment on above: Performed By: #### C BCA, PINR, 24557-8, CMP, 02486-1, 65925-1 #### [facility] ([id number]) [address] [place] [address] 69613 Erythrocyte distribution width (RBC) [Ratio] 13.7 % Normal 11.5-[address] [facility] Comment on above: Performed By: #### C BCA, PINR, 91901-4, CMP, 42873-9, 52451-5 #### [facility] ([id number]) [address] [place] [address] 79179 Hematocrit (Bld) [Volume fraction] 35.8 % Low 39-[address] [facility] Comment on above: Performed By: #### C BCA, PINR, 17576-3, CMP, 28317-2, 26124-4 #### [facility] ([id number]) [address] [place] [address] 72978 Hemoglobin (Bld) [Mass/Vol] 12.3 g/dL Low 13-[address] [facility] Comment on above: Performed By: #### C BCA, PINR, 17842-5, CMP, 84524-1, 60350-3 #### [facility] ([id number]) [address] [place] [address] 80769 LYMPHOCYTES ABSOLUTE COUNT (10*3/UL) BY AUTOMATED COUNT 0.8 10*3/uL Low 1.0-3.[address] [facility] Comment on above: Performed By: #### C BCA, PINR, 16970-0, CMP, 99158-2, 10538-5 #### [facility] ([id number]) [address] [place] [address] 32613 LYMPHOCYTES RELATIVE PERCENT BY AUTOMATED COUNT 11.1 % Normal [facility] Comment on above: Performed By: #### C BCA, PINR, 80427-4, CMP, 56639-8, 45376-4 #### [facility] ([id number]) [address] [place] [address] 27333 MCH (RBC) [Entitic mass] 31.3 pg Normal 27-[address] [facility] Comment on above: Performed By: #### C BCA, PINR, 82421-0, CMP, 60347-3, 51735-8 #### [facility] ([id number]) [address] [place] [address] 12368 MCHC (RBC) [Mass/Vol] 34.3 g/dL Normal 32-36 [facility] Comment on above: Performed By: #### C BCA, PINR, 88167-7, CMP, 04816-0, 28996-2 #### [facility] ([id number]) [address] [place] [address] 89469 MCV (RBC) [Entitic vol] 91 fL Normal 80-100 [facility] Comment on above: Performed By: #### C BCA, PINR, 61238-2, CMP, 44939-5, 72417-0 #### [facility] ([id number]) [address] [place] [address] 00175 MONOCYTES ABSOLUTE COUNT (10*3/UL) BY AUTOMATED COUNT 0.7 10*3/uL Normal 0.0-0.[address] [facility] Comment on above: Performed By: #### C BCA, PINR, 38533-4, CMP, 13549-8, 09838-4 #### [facility] ([id number]) [address] [place] [address] 89564 MONOCYTES RELATIVE PERCENT BY AUTOMATED COUNT 10.3 % Normal [facility] Comment on above: Performed By: #### C BCA, PINR, 70619-0, CMP, 96788-9, 77676-6 #### [facility] ([id number]) [address] [place] [address] 49844 NEUTROPHILS ABSOLUTE COUNT BY AUTOMATED COUNT 5.3 10*3/uL Normal 1.5-6.[address] [facility] Comment on above: Performed By: #### C BCA, PINR, 25883-8, CMP, 32810-9, 94847-7 #### [facility] ([id number]) [address] [place] [address] 13056 NEUTROPHILS RELATIVE PERCENT BY AUTOMATED COUNT 75.3 % Normal [facility] Comment on above: Performed By: #### C BCA, PINR, 06297-0, CMP, 16158-8, 40152-1 #### [facility] ([id number]) [address] [place] [address] 63560 Platelet mean volume (Bld) [Entitic vol] 8.2 fL Normal 7-[address] [facility] Comment on above: Performed By: #### C BCA, PINR, 40171-5, CMP, 91964-2, 37211-6 #### [facility] ([id number]) [address] [place] [address] 37691 Platelets (Bld) [#/Vol] 208 10*3/uL Normal 150-[address] [facility] Comment on above: Performed By: #### C BCA, PINR, 76355-7, CMP, 81711-2, 17986-3 #### [facility] ([id number]) [address] [place] [address] 68482 RBC COUNT 3.93 X10E12/L Low 4.1-5.[address] [facility] Comment on above: Performed By: #### C BCA, PINR, 29676-2, CMP, 34985-1, 56892-9 #### [facility] ([id number]) [address] [place] [address] 66994 WBC (Bld) [#/Vol] 7.0 10*3/uL Normal 4-11 [facility] Comment on above: Performed By: #### Arnulfo BCA, PINR, 11835-1, CMP, 62761-1, 32346-4 #### [facility] ([id number]) [address] [place] [address] 64785 COMPREHENSIVE METABOLIC PANE Tim 02-10-2025 Albumin [Mass/Vol] 3.2 g/dL Normal 3.2-5.3 [facility] Comment on above: Performed By: #### C BCA, PINR, 90636-8, CMP, 14251-0, 84216-5 #### [facility] ([id number]) [address] [place] [address] 03126 ALP [Catalytic activity/Vol] 95 U/L Normal 39-[address] [facility] Comment on above: Performed By: #### C BCA, PINR, 66031-6, CMP, 05514-3, 23485-5 #### [facility] ([id number]) [address] [place] [address] 10933 ALT [Catalytic activity/Vol] 15 U/L Normal <=[address] [facility] Comment on above: Performed By: #### C BCA, PINR, 89586-5, CMP, 93458-2, 84498-6 #### [facility] ([id number]) [address] [place] [address] 70845 Anion gap [Moles/Vol] 9 mmol/L Normal 5-15 [facility] Comment on above: Performed By: #### C BCA, PINR, 43542-0, CMP, 67843-3, 77176-0 #### [facility] ([id number]) [address] [place] [address] 57957 AST [Catalytic activity/Vol] 15 U/L Normal <=[address] [facility] Comment on above: Performed By: #### C BCA, PINR, 19712-2, CMP, 35622-3, 37329-8 #### [facility] ([id number]) [address] [place] [address] 68106 Bilirubin [Mass/Vol] 0.7 mg/dL Normal 0.3-1.2 [facility] Comment on above: Performed By: #### C BCA, PINR, 88455-6, CMP, 12629-2, 73626-8 #### [facility] ([id number]) [address] [place] [address] 38876 Calcium [Mass/Vol] 8.2 mg/dL Low 8.5-10.5 [facility] Comment on above: Performed By: #### C BCA, PINR, 40564-6, CMP, 03170-8, 46327-7 #### [facility] ([id number]) [address] [place] [address] 88960 Chloride [Moles/Vol] 107 mmol/L Normal 98-109 [facility] Comment on above: Performed By: #### C BCA, PINR, 37146-8, CMP, 70041-8, 90109-1 #### [facility] ([id number]) [address] [place] [address] 00360 CO2 [Moles/Vol] 24 mmol/L Normal 22-[address] [facility] Comment on above: Performed By: #### C BCA, PINR, 41878-3, CMP, 45557-0, 44502-4 #### [facility] ([id number]) [address] [place] [address] 44073 Creatinine [Mass/Vol] 0.84 mg/dL Normal 0.70-1.20 [facility] Comment on above: Result Comment: METH OD TRACEABLE TO IDMS STANDARD Performed By: #### C BCA, PINR, 55792-1, CMP, 74892-9, 77687-2 #### [facility] ([id number]) [address] [place] [address] 56404 GFR/1.73 sq M.predicted among non-blacks MDRD (S/P/Bld) [Vol rate/Area] 84 mL/min/{1.73_m2} Normal >=[address] [facility] Comment on above: Result Comment: eGFR not reported due to non-numeric value for Creatinine. Reported eGFR is based on the CKD-EPI 2020 equation that does not use a race coefficient. Performed By: #### C BCA, PINR, 51614-8, CMP, 95027-6, 95599-9 #### [facility] ([id number]) [address] [place] [address] 45628 Glucose [Mass/Vol] 104 mg/dL High 65-99 [facility] Comment on above: Performed By: #### C BCA, PINR, 90006-1, CMP, 91795-3, 13511-6 #### [facility] ([id number]) [address] [place] [address] 05957 Potassium [Moles/Vol] 3.5 mmol/L Normal 3.5-5.0 [facility] Comment on above: Performed By: #### C BCA, PINR, 59206-2, CMP, 34070-2, 55773-7 #### [facility] ([id number]) [address] [place] [address] 35392 Protein [Mass/Vol] 5.7 g/dL Low 6.0-8.0 [facility] Comment on above: Performed By: #### C BCA, PINR, 30698-8, CMP, 25785-3, 47966-0 #### [facility] ([id number]) [address] [place] [address] 44041 Sodium [Moles/Vol] 140 mmol/L Normal 134-146 [facility] Comment on above: Performed By: #### C BCA, PINR, 54654-1, CMP, 38141-3, 83202-4 #### [facility] ([id number]) [address] [place] [address] 75233 Urea nitrogen [Mass/Vol] 22 mg/dL Normal 5-[address] [facility] Comment on above: Performed By: #### C BCA, PINR, 12181-1, CMP, 54634-8, 76423-2 #### [facility] ([id number]) [address] [place] [address] 58346 MAGNESIUMon 02-10-2025 Magnesium [Mass/Vol] 1.8 mg/dL Normal 1.8-2.6 [facility] Comment on above: Performed By: #### C BCA, PINR, 95646-3, CMP, 97854-8, 57377-6 #### [facility] ([id number]) [address] [place] [address] 95804 CBC WITH AUTO DIFFERENTIALon 02-09-2025 BASOPHILS ABSOLUTE COUNT (10*3/UL) BY AUTOMATED COUNT 0.1 10*3/uL Normal 0.0-0.[address] [facility] Comment on above: Performed By: #### C BCA, PINR, 36760-1, CMP, 45027-9, 24046-9 #### [facility] ([id number]) [address] [place] [address] 95142 BASOPHILS RELATIVE PERCENT BY AUTOMATED COUNT 2.7 % Normal [facility] Comment on above: Performed By: #### C BCA, PINR, 94665-2, CMP, 89226-2, 79205-8 #### [facility] ([id number]) [address] [place] [address] 63781 CELLAVISION DIFFERENTIAL TYPE AUTOMATED DIFFERENTIAL Normal [facility] Comment on above: Performed By: #### C BCA, PINR, 10399-7, CMP, 44300-7, 74009-2 #### [facility] ([id number]) [address] [place] [address] 43302 Eosinophils (Bld) [#/Vol] 0.1 10*3/uL Normal 0.0-0.[address] [facility] Comment on above: Performed By: #### C BCA, PINR, 20600-8, CMP, 68213-6, 33140-6 #### [facility] ([id number]) [address] [place] [address] 30095 EOSINOPHILS RELATIVE PERCENT BY AUTOMATED COUNT 2.4 % Normal [facility] Comment on above: Performed By: #### C BCA, PINR, 30862-8, CMP, 90588-2, 80485-5 #### [facility] ([id number]) [address] [place] [address] 89481 Erythrocyte distribution width (RBC) [Ratio] 14.0 % Normal 11.5-[address] [facility] Comment on above: Performed By: #### C BCA, PINR, 43439-7, CMP, 34510-4, 91718-2 #### [facility] ([id number]) [address] [place] [address] 45228 Hematocrit (Bld) [Volume fraction] 39.6 % Normal 39-[address] [facility] Comment on above: Performed By: #### C BCA, PINR, 24269-2, CMP, 78920-9, 27593-3 #### [facility] ([id number]) [address] [place] [address] 62061 Hemoglobin (Bld) [Mass/Vol] 13.5 g/dL Normal 13-[address] [facility] Comment on above: Performed By: #### C BCA, PINR, 88916-2, CMP, 66992-9, 95128-4 #### [facility] ([id number]) [address] [place] [address] 81026 LYMPHOCYTES ABSOLUTE COUNT (10*3/UL) BY AUTOMATED COUNT 0.7 10*3/uL Low 1.0-3.[address] [facility] Comment on above: Performed By: #### C BCA, PINR, 74262-1, CMP, 32614-9, 92866-4 #### [facility] ([id number]) [address] [place] [address] 60476 LYMPHOCYTES RELATIVE PERCENT BY AUTOMATED COUNT 12.1 % Normal [facility] Comment on above: Performed By: #### C BCA, PINR, 07573-6, CMP, 19670-6, 09835-9 #### [facility] ([id number]) [address] [place] [address] 70626 MCH (RBC) [Entitic mass] 31.0 pg Normal 27-[address] [facility] Comment on above: Performed By: #### C BCA, PINR, 35311-0, CMP, 94127-9, 52674-1 #### [facility] ([id number]) [address] [place] [address] 05227 MCHC (RBC) [Mass/Vol] 34.2 g/dL Normal 32-36 [facility] Comment on above: Performed By: #### C BCA, PINR, 37953-0, CMP, 04328-4, 54739-2 #### [facility] ([id number]) [address] [place] [address] 31401 MCV (RBC) [Entitic vol] 91 fL Normal 80-100 [facility] Comment on above: Performed By: #### C BCA, PINR, 44055-0, CMP, 33153-2, 82984-4 #### [facility] ([id number]) [address] [place] [address] 00641 MONOCYTES ABSOLUTE COUNT (10*3/UL) BY AUTOMATED COUNT 0.5 10*3/uL Normal 0.0-0.[address] [facility] Comment on above: Performed By: #### C BCA, PINR, 94201-9, CMP, 22679-3, 98333-0 #### [facility] ([id number]) [address] [place] [address] 38397 MONOCYTES RELATIVE PERCENT BY AUTOMATED COUNT 9.2 % Normal [facility] Comment on above: Performed By: #### C BCA, PINR, 55668-5, CMP, 50494-7, 40524-7 #### [facility] ([id number]) [address] [place] [address] 94971 NEUTROPHILS ABSOLUTE COUNT BY AUTOMATED COUNT 4.0 10*3/uL Normal 1.5-6.[address] [facility] Comment on above: Performed By: #### C BCA, PINR, 08659-9, CMP, 91048-9, 33835-4 #### [facility] ([id number]) [address] [place] [address] 95346 NEUTROPHILS RELATIVE PERCENT BY AUTOMATED COUNT 73.6 % Normal [facility] Comment on above: Performed By: #### C BCA, PINR, 34658-2, CMP, 15495-9, 44604-4 #### [facility] ([id number]) [address] [place] [address] 74805 Platelet mean volume (Bld) [Entitic vol] 8.1 fL Normal 7-[address] [facility] Comment on above: Performed By: #### C BCA, PINR, 84396-1, CMP, 58399-8, 29725-4 #### [facility] ([id number]) [address] [place] [address] 36919 Platelets (Bld) [#/Vol] 262 10*3/uL Normal 150-[address] [facility] Comment on above: Performed By: #### C BCA, PINR, 09454-7, CMP, 71658-3, 42845-7 #### [facility] ([id number]) [address] [place] [address] 91841 RBC COUNT 4.36 X10E12/L Normal 4.1-5.[address] [facility] Comment on above: Performed By: #### C BCA, PINR, 57400-3, CMP, 32569-5, 13984-8 #### [facility] ([id number]) [address] [place] [address] [place] [address] WBC (Bld) [#/Vol] 5.4 10*3/uL Normal 4-11 [facility] Comment on above: Performed By: #### C BCA, PINR, 22738-0, CMP, 21365-1, 50127-1 #### [facility] ([id number]) [address] [place] [address] 08189 COMPREHENSIVE METABOLIC PANE Tim 02-09-2025 Albumin [Mass/Vol] 3.8 g/dL Normal 3.2-5.3 [facility] Comment on above: Performed By: #### C BCA, PINR, 08528-7, CMP, 33170-4, 30390-7 #### [facility] ([id number]) [address] [place] [address] 01434 ALP [Catalytic activity/Vol] 108 U/L Normal 39-[address] [facility] Comment on above: Performed By: #### C BCA, PINR, 26281-5, CMP, 39278-8, 78324-2 #### [facility] ([id number]) [address] [place] [address] 63937 ALT [Catalytic activity/Vol] 19 U/L Normal <=[address] [facility] Comment on above: Performed By: #### C BCA, PINR, 88864-1, CMP, 31622-2, 20228-8 #### [facility] ([id number]) [address] [place] [address] 38313 Anion gap [Moles/Vol] 4 mmol/L Low 5-15 [facility] Comment on above: Performed By: #### C BCA, PINR, 50951-1, CMP, 27755-3, 97720-8 #### [facility] ([id number]) [address] [place] [address] 96724 AST [Catalytic activity/Vol] 20 U/L Normal <=[address] [facility] Comment on above: Performed By: #### C BCA, PINR, 74497-6, CMP, 61242-9, 70415-8 #### [facility] ([id number]) [address] [place] [address] 16921 Bilirubin [Mass/Vol] 0.2 mg/dL Low 0.3-1.2 [facility] Comment on above: Performed By: #### C BCA, PINR, 74204-8, CMP, 79313-5, 09616-4 #### [facility] ([id number]) [address] [place] [address] 42815 Calcium [Mass/Vol] 8.3 mg/dL Low 8.5-10.5 [facility] Comment on above: Performed By: #### C BCA, PINR, 31464-7, CMP, 93138-2, 42710-1 #### [facility] ([id number]) [address] [place] [address] 70127 Chloride [Moles/Vol] 111 mmol/L High 98-109 [facility] Comment on above: Performed By: #### C BCA, PINR, 78367-2, CMP, 74623-7, 56087-2 #### [facility] ([id number]) [address] [place] [address] 20098 CO2 [Moles/Vol] 22 mmol/L Normal 22-[address] [facility] Comment on above: Performed By: #### C BCA, PINR, 61946-1, CMP, 84737-4, 81402-1 #### [facility] ([id number]) [address] [place] [address] 61695 Creatinine [Mass/Vol] 0.84 mg/dL Normal 0.70-1.20 [facility] Comment on above: Result Comment: METH OD TRACEABLE TO IDMS STANDARD Performed By: #### C BCA, PINR, 10554-8, CMP, 29453-1, 78779-9 #### [facility] ([id number]) [address] [place] [address] 56637 GFR/1.73 sq M.predicted among non-blacks MDRD (S/P/Bld) [Vol rate/Area] 84 mL/min/{1.73_m2} Normal >=[address] [facility] Comment on above: Result Comment: eGFR not reported due to non-numeric value for Creatinine. Reported eGFR is based on the CKD-EPI 202 equation that does not use a race coefficient. Performed By: #### C BCA, PINR, 35098-2, CMP, 56678-0, 52446-3 #### [facility] ([id number]) [address] [place] [address] 23486 Glucose [Mass/Vol] 124 mg/dL High 65-99 [facility] Comment on above: Performed By: #### C BCA, PINR, 77736-3, CMP, 43253-9, 25285-0 #### [facility] ([id number]) [address] [place] [address] 12194 Potassium [Moles/Vol] 3.5 mmol/L Normal 3.5-5.0 [facility] Comment on above: Performed By: #### C BCA, PINR, 38924-0, CMP, 60778-2, 09146-0 #### [facility] ([id number]) [address] [place] [address] 19499 Protein [Mass/Vol] 6.4 g/dL Normal 6.0-8.0 [facility] Comment on above: Performed By: #### C BCA, PINR, 93757-7, CMP, 80110-0, 42355-3 #### [facility] ([id number]) [address] [place] [address] 24486 Sodium [Moles/Vol] 137 mmol/L Normal 134-146 [facility] Comment on above: Performed By: #### C BCA, PINR, 02102-4, [facility], 14202-9, 00754-4 #### [facility] ([id number]) [address] [place] [address] 53080 Urea nitrogen [Mass/Vol] 21 mg/dL Normal 5-[address] [facility] Comment on above: Performed By: #### C BCA, PINR, 84580-2, [facility], 34531-1, 73082-8 #### [facility] ([id number]) [address] [place] [address] BRAIN WO CONTon CT BRAIN WO [...] Eid MD on 02/09/2025 3:26 PM Normal [facility] CT CERVICAL SPINE WO CONTon 02-09-2025 CT [...] Stone MD on 02/09/2025 3:41 PM Normal [facility] CT HIP LT WO CONTon 02-10-20 25 [...] Mccartney MD on 02/09/2025 4:08 PM Normal [facility] MAGNESIUMon 02-09-2025 Magnesium [Mass/Vol] 2.0 mg/dL Normal 1.8-2.6 [facility] Comment on above: Performed By: #### C BCA, PINR, 80646-3, CMP, 75572-5, 10609-9 #### [facility] ([id number]) [address] [place] [address], [place] [address] PREALBUMINon 02-09-2025 Prealbumin [Mass/Vol] 20 mg/dL Normal 18-45 [facility] Comment on above: Performed By: #### C BCA, PINR, 72864-9, CMP, 47420-3, 40276-2 #### [facility] ([id number]) [address] [place] [address]287 REPEATED ABORHon 02-09-2025 ABO_INTEP A [facility] Comment on above: Performed By: #### C BCA, PINR, 13563-1, CMP, 15681-7, 68317-6 #### [facility] ([id number]) [address] [place] [address] 61279 RH_INTEP Negative [facility] Comment on above: Performed By: #### C BCA, PINR, 43064-2, CMP, 89864-7, 82776-2 #### [facility] ([id number]) [address] [place] [address] 28834 TROP I, HIGH SENSITIVITY 1 H OURon 02-09-2025 TROPONIN I, HIGH SENSITIVITY 4 ng/L Normal <[address] [facility] Comment on above: Performed By: #### C BCA, PINR, 47380-2, CMP, 39248-7, 77118-5 #### [facility] ([id number]) [address] [place] [address] 86287 TROPONIN I, HIGH SENSITIVITY 0 HOURon 02-09-2025 TROPONIN I, HIGH SENSITIVITY 4 ng/L Normal <[address] [facility] Comment on above: Performed By: #### C BCA, PINR, 21647-9, CMP, 18775-6, 65481-4 #### [facility] ([id number]) [address] [place] [address] [place] [address] TYPE AND SCREENon 02-09-2025 ABO_INTEP A [facility] Comment on above: Performed By: #### C BCA, PINR, 84385-1, CMP, 99523-7, 52879-5 #### [facility] ([id number]) [address] [place] [address] 39572 RH_INTEP Negative Normal [facility] Comment on above: Performed By: #### C KRISTY GUILLENR, 90872-3, [facility], 20575-9, 45559-6 #### [facility] ([id number]) [address] [place] [address] [id number] VITAMIN D 25 HYDROXYon 02-09 VITAMIN D 25 HYD TOT 40.6 ng/mL Normal 30.0-100.0 [facility] Comment on above: Order Comment: Vitam in D status 25 [place] Vitamin D Deficienc y <20 ng/mLInsufficiency 20-29 ng/mLSufficiency 30-100 ng/mLToxicity >100 ng/mLNOTE: A pediatric reference range has not been established by the hazardous substances scientist of this kit. The [place] [employer] recommends a Vitamin D level of = or >20ng/mL in infants and children. Performed By: #### C KRISTY GUILLENR, 62203-1, [facility], 95086-2, 53998-6 #### [facility] ([id number]) [address] [place] [address] [id number] XR CHEST 1 VWon 02-09-2025 XR CHEST [...] Ohara MD on 02/09/2025 3:42 PM Normal [facility] XR FEMUR LT 2+ VIEWSon 02-09 XR [...] Mccartney MD on 02/09/2025 3:46 PM Normal [facility] XR HIP LT 2-3 VIEWS W OR [...] Mccartney MD on 02/09/2025 3:45 PM Normal [facility] CNPNon 01-05-2025 [facility] Telephone ([facility]) DERRICK MONAE ([id number]) 1935 M Date Time Provider Department 01/05/25 MARGARITA AREVALO [facility] During your visit today, we recorded the following information about you: Jackson Alegre 01/05/2025 2:51 PM Signed Left voicemail regarding scheduling follow up with Margarita in 3 months (Mar 2025), and new consult with Virginia Camacho, the [facility] clinical social worker, scheduling number included for call back. Allergies [...] and new consult with Virginia Camacho, the [facility] clinical social worker, scheduling number included for call back. Prescriptions [...] (FLONASE) 50 mcg/actuation nasal spray Use 1 [employer]y [employer] in the nose once daily. - loratadine-pseudoeph [...] Encounter Status:Closed by JACKSON ALEGRE on 01/05/25 [facility] CNOVon 10-07-2024 CNOV Office Visit (ISMAEL) EDRRICK MONAE ([id number]) 1935 M Date Time Provider Department 10/07/24 1:00 PM MARGARITA AREVALO During your visit today, we recorded the following information about you: Pulse Blood pressure Weight 115/minute 129/91 69.6 kg Margarita Arevalo PA-C 10/07/2024 2:21 PM Signed Derrick Monae 1935 [id number] [facility] [address] October 07, 2024 Time: 11:58 AM Only for [facility] FOLLOW-UP NOTE Accompanied by: spouse and daughter (she is visiting, lives in [place]) SUBJECTIVE Derrick Monae is a pleasant 89 [...] worse, daughter agrees. She is visiting from [place], here for about one month. Spouse states [...] (FLONASE) 50 mcg/actuation nasal spray Use 1 [employer] in the nose once daily. loratadine-pseudoeph edrine [...] Insight: poor (more content not included)... Normal [facility] BASIC METABOLIC PANLon 08-05 Anion gap [Moles/Vol] 11 mmol/L Normal 5-15 [facility] Comment on above: Performed By: #### C BCA, PINR, 39441-1, CMP, 29114-9, 28882-5 #### [facility] ([id number]) [address] [place] [address] 30738 Calcium [Mass/Vol] 8.4 mg/dL Low 8.5-10.5 [facility] Comment on above: Performed By: #### C BCA, PINR, 49318-4, CMP, 70197-3, 24812-2 #### [facility] ([id number]) [address] [place] [address] 00989 Chloride [Moles/Vol] 103 mmol/L Normal 98-109 [facility] Comment on above: Performed By: #### C BCA, PINR, 26241-0, CMP, 24809-8, 78240-5 #### [facility] ([id number]) [address] [place] [address] 99693 CO2 [Moles/Vol] 23 mmol/L Normal 22-[address] [facility] Comment on above: Performed By: #### C BCA, PINR, 17650-7, CMP, 71104-9, 44499-6 #### [facility] ([id number]) [address] [place] [address] 93132 Creatinine [Mass/Vol] 0.82 mg/dL Normal 0.70-1.20 [facility] Comment on above: Result Comment: METH OD TRACEABLE TO IDMS STANDARD Performed By: #### C BCA, PINR, 37134-4, CMP, 26269-5, 12717-3 #### [facility] ([id number]) [address] [place] [address] 09364 GFR/1.73 sq M.predicted among non-blacks MDRD (S/P/Bld) [Vol rate/Area] 85 mL/min/{1.73_m2} Normal >[address] [facility] Comment on above: Result Comment: Reported eGFR is based on the CKD-EPI 2020 equation that does not use a race coefficient. Performed By: #### C BCA, PINR, 04485-8, CMP, 77779-0, 08262-8 #### [facility] ([id number]) [address] [place] [address] 54026 Glucose [Mass/Vol] 108 mg/dL High 65-99 [facility] Comment on above: Performed By: #### C BCA, PINR, 83569-0, CMP, 23115-1, 42597-3 #### [facility] ([id number]) [address] [place] [address] 83911 Potassium [Moles/Vol] 3.9 mmol/L Normal 3.5-5.0 [facility] Comment on above: Performed By: #### C BCA, PINR, 66614-8, CMP, 63329-8, 80617-8 #### [facility] ([id number]) [address] [place] [address] 49053 Sodium [Moles/Vol] 137 mmol/L Normal 134-146 [facility] Comment on above: Performed By: #### C BCA, PINR, 53249-0, CMP, 42039-8, 69804-2 #### [facility] ([id number]) [address] [place] [address] 43340 Urea nitrogen [Mass/Vol] 17 mg/dL Normal 5-[address] [facility] Comment on above: Performed By: #### C BCA, PINR, 11447-1, CMP, 73617-2, 45759-8 #### [facility] ([id number]) [address] [place] [address] 95374 CBC AND AUTO DIFFon 08-05-19 25 ABSOLUTE BASOPHIL 0.1 X10E9/L Normal 0.0-0.2 [facility] Comment on above: Performed By: #### C BCA, PINR, 36799-6, CMP, 72031-3, 42163-3 #### [facility] ([id number]) [address] [place] [address] 34945 ABSOLUTE NEUTROPHIL 5.3 X10E9/L Normal 1.5-6.6 [facility] Comment on above: Performed By: #### C BCA, PINR, 27436-8, CMP, 83783-2, 15240-7 #### [facility] ([id number]) [address] [place] [address] 27831 Basophils/100 WBC (Bld) 0.8 % Normal [facility] Comment on above: Performed By: #### C BCA, PINR, 71455-7, CMP, 72735-6, 17896-7 #### [facility] ([id number]) [address] [place] [address] 52819 Eosinophils (Bld) [#/Vol] 0.1 10*3/uL Normal 0.0-0.[address] [facility] Comment on above: Performed By: #### C BCA, PINR, 80756-1, CMP, 03584-3, 63829-7 #### [facility] ([id number]) [address] [place] [address] 39055 Eosinophils/100 WBC (Bld) 2.0 % Normal [facility] Comment on above: Performed By: #### C BCA, PINR, 36280-6, CMP, 23062-6, 34745-9 #### [facility] ([id number]) [address] [place] [address] 12509 Erythrocyte distribution width (RBC) [Ratio] 14.3 % Normal 11.5-15.[address] [facility] Comment on above: Performed By: #### C BCA, PINR, 35477-4, CMP, 01098-3, 51368-4 #### [facility] ([id number]) [address] [place] [address] 78260 Hematocrit (Bld) [Volume fraction] 40.1 % Normal 39-[address] [facility] Comment on above: Performed By: #### C BCA, PINR, 80156-4, CMP, 22476-9, 79025-5 #### [facility] ([id number]) [address] [place] [address] 83887 Hemoglobin (Bld) [Mass/Vol] 13.6 g/dL Normal 13.0-17.[address] [facility] Comment on above: Performed By: #### C MINDY, PINR, 67281-5, CMP, 47811-4, 38859-0 #### [facility] ([id number]) [address] [place] [address] 29040 Lymphocytes (Bld) [#/Vol] 0.7 10*3/uL Low 1.0-3.[address] [facility] Comment on above: Performed By: #### C BCA, PINR, 43140-1, CMP, 82263-6, 02266-6 #### [facility] ([id number]) [address] [place] [address] 25320 Lymphocytes/100 WBC (Bld) 9.7 % Normal [facility] Comment on above: Performed By: #### Arnulfo BCA, PINR, 53969-2, CMP, 79613-9, 86334-4 #### [facility] ([id number]) [address] [place] [address] 10016 MCH (RBC) [Entitic mass] 30.9 pg Normal 27-[address] [facility] Comment on above: Performed By: #### Arnulfo BCA, PINR, 39550-5, CMP, 69837-3, 12180-3 #### [facility] ([id number]) [address] [place] [address] 92841 MCHC (RBC) [Mass/Vol] 33.8 g/dL Normal 32-36 [facility] Comment on above: Performed By: #### C BCA, PINR, 74137-6, CMP, 65313-8, 13282-4 #### [facility] ([id number]) [address] [place] [address] 45877 MCV (RBC) [Entitic vol] 91 fL Normal 80-100 [facility] Comment on above: Performed By: #### C BCA, PINR, 66779-3, CMP, 08042-3, 80399-2 #### [facility] ([id number]) [address] [place] [address] 62500 Monocytes (Bld) [#/Vol] 0.8 10*3/uL Normal 0-0.[address] [facility] Comment on above: Performed By: #### C BCA, PINR, 30195-6, CMP, 38241-7, 29035-9 #### [facility] ([id number]) [address] [place] [address] 17736 Monocytes/100 WBC (Bld) 11.3 % Normal [facility] Comment on above: Performed By: #### C BCA, PINR, 71616-6, CMP, 46752-5, 73290-9 #### [facility] ([id number]) [address] [place] [address] 06780 Neutrophils/100 WBC (Bld) 76.2 % Normal [facility] Comment on above: Performed By: #### C BCA, PINR, 55631-2, CMP, 78601-2, 23317-8 #### [facility] ([id number]) [address] [place] [address] 46062 Platelet mean volume (Bld) [Entitic vol] 7.8 fL Normal 7-[address] [facility] Comment on above: Performed By: #### C BCA, PINR, 11587-3, CMP, 11075-0, 29281-8 #### [facility] ([id number]) [address] [place] [address] 29763 Platelets (Bld) [#/Vol] 207 10*3/uL Normal 150-[address] [facility] Comment on above: Performed By: #### C BCA, PINR, 37385-4, CMP, 69116-4, 75723-3 #### [facility] ([id number]) [address] [place] [address] 91676 RBC COUNT 4.38 X10E12/L Normal 4.10-5.[address] [facility] Comment on above: Performed By: #### C BCA, PINR, 22609-6, CMP, 26712-5, 27304-1 #### [facility] ([id number]) [address] [place] [address] 53738 WBC (Bld) [#/Vol] 6.9 10*3/uL Normal 4.0-11.0 [facility] Comment on above: Performed By: #### C BCA, PINR, 03087-0, CMP, 20765-8, 00683-7 #### [facility] ([id number]) [address] [place] [address] 88152 SARS/FLU A+B[facility] SARS/FLU A+B/RSV by NAAT/Molecular FLU [...] repeat. Fact Sheet for Healthcare Providers: https://www.fda.gov/ media/198214/downloa d Fact Sheet for Patients: https://www.fda.gov/ media/810418/downloa d [facility] Comment on above: Performed By: #### C BCA, PINR, 64083-1, [facility], 04799-4, 12987-8 #### [facility] ([id number]) [address] [place] [address] 14119 XR CHEST 1 VWon 08-05-2024 XR CHEST [...] Velez MD on 08/05/2024 5:42 PM Normal [facility] CBC AND AUTO DIFFon 07-30-19 25 ABSOLUTE BASOPHIL 0.2 X10E9/L Normal 0.0-0.2 [facility] Comment on above: Performed By: #### C BCA, PINR, 34192-8, CMP, 91157-6, 96746-6 #### [facility] ([id number]) [address] [place] [address] 56198 ABSOLUTE NEUTROPHIL 4.4 X10E9/L Normal 1.5-6.6 [facility] Comment on above: Performed By: #### C BCA, PINR, 19730-8, CMP, 43940-7, 54077-3 #### [facility] ([id number]) [address] [place] [address] 70230 Basophils/100 WBC (Bld) 2.4 % Normal [facility] Comment on above: Performed By: #### C BCA, PINR, 38417-0, CMP, 04944-8, 90358-2 #### [facility] ([id number]) [address] [place] [address] 73622 Eosinophils (Bld) [#/Vol] 0.3 10*3/uL Normal 0.0-0.[address] [facility] Comment on above: Performed By: #### C BCA, PINR, 84672-6, CMP, 75787-0, 45934-5 #### [facility] ([id number]) [address] [place] [address] 22380 Eosinophils/100 WBC (Bld) 4.0 % Normal [facility] Comment on above: Performed By: #### C BCA, PINR, 17701-8, CMP, 07252-0, 63218-6 #### [facility] ([id number]) [address] [place] [address] 93621 Erythrocyte distribution width (RBC) [Ratio] 14.0 % Normal 11.5-15.[address] [facility] Comment on above: Performed By: #### C BCA, PINR, 62403-8, CMP, 74130-3, 88347-0 #### [facility] ([id number]) [address] [place] [address] 75396 Hematocrit (Bld) [Volume fraction] 39.0 % Normal 39-[address] [facility] Comment on above: Performed By: #### C BCA, PINR, 90001-4, CMP, 22195-5, 14668-9 #### [facility] ([id number]) [address] [place] [address] 44730 Hemoglobin (Bld) [Mass/Vol] 13.3 g/dL Normal 13.0-17.[address] [facility] Comment on above: Performed By: #### C BCA, PINR, 66689-3, CMP, 21473-8, 70073-8 #### [facility] ([id number]) [address] [place] [address] 56906 Lymphocytes (Bld) [#/Vol] 1.1 10*3/uL Normal 1.0-3.[address] [facility] Comment on above: Performed By: #### C BCA, PINR, 69020-1, CMP, 60458-9, 88657-8 #### [facility] ([id number]) [address] [place] [address] 28878 Lymphocytes/100 WBC (Bld) 16.4 % Normal [facility] Comment on above: Performed By: #### C BCA, PINR, 29355-2, CMP, 68893-2, 57245-7 #### [facility] ([id number]) [address] [place] [address] 98701 MCH (RBC) [Entitic mass] 31.3 pg Normal 27-[address] [facility] Comment on above: Performed By: #### C BCA, PINR, 45984-4, CMP, 54999-9, 99279-3 #### [facility] ([id number]) [address] [place] [address] 63471 MCHC (RBC) [Mass/Vol] 34.0 g/dL Normal 32-36 [facility] Comment on above: Performed By: #### C BCA, PINR, 55921-5, CMP, 73922-1, 54525-1 #### [facility] ([id number]) [address] [place] [address] 60317 MCV (RBC) [Entitic vol] 92 fL Normal 80-100 [facility] Comment on above: Performed By: #### C BCA, PINR, 98364-9, CMP, 32651-0, 85400-6 #### [facility] ([id number]) [address] [place] [address] 22261 Monocytes (Bld) [#/Vol] 0.7 10*3/uL Normal 0-0.[address] [facility] Comment on above: Performed By: #### C BCA, PINR, 28268-8, CMP, 92506-5, 27182-4 #### [facility] ([id number]) [address] [place] [address] 23951 Monocytes/100 WBC (Bld) 10.0 % Normal [facility] Comment on above: Performed By: #### C BCA, PINR, 33815-7, CMP, 10161-1, 19900-8 #### [facility] ([id number]) [address] [place] [address] 74051 Neutrophils/100 WBC (Bld) 67.2 % Normal [facility] Comment on above: Performed By: #### C BCA, PINR, 95169-4, CMP, 91435-8, 37880-6 #### [facility] ([id number]) [address] [place] [address] 61515 Platelet mean volume (Bld) [Entitic vol] 8.4 fL Normal 7-[address] [facility] Comment on above: Performed By: #### C BCA, PINR, 09941-2, CMP, 57217-5, 38548-0 #### [facility] ([id number]) [address] [place] [address] 15575 Platelets (Bld) [#/Vol] 242 10*3/uL Normal 150-[address] [facility] Comment on above: Performed By: #### C BCA, PINR, 10287-0, CMP, 67598-7, 15912-5 #### [facility] ([id number]) [address] [place] [address] 51220 RBC COUNT 4.24 X10E12/L Normal 4.10-5.[address] [facility] Comment on above: Performed By: #### C BCA, PINR, 52270-5, CMP, 17988-1, 88794-1 #### [facility] ([id number]) [address] [place] [address] 68599 WBC (Bld) [#/Vol] 6.5 10*3/uL Normal 4.0-11.0 [facility] Comment on above: Performed By: #### C BCA, PINR, 57204-1, CMP, 95795-3, 85176-8 #### [facility] ([id number]) [address] [place] [address] 88289 COMPREHENSIVE METABOLIC PANE Tim 07-30-2024 Albumin [Mass/Vol] 3.7 g/dL Normal 3.2-5.3 [facility] Comment on above: Performed By: #### C BCA, PINR, 78429-5, CMP, 69202-4, 86868-6 #### [facility] ([id number]) [address] [place] [address] 20758 ALP [Catalytic activity/Vol] 103 U/L Normal 39-[address] [facility] Comment on above: Performed By: #### C BCA, PINR, 14668-6, CMP, 68607-1, 48112-1 #### [facility] ([id number]) [address] [place] [address] 33960 ALT [Catalytic activity/Vol] 21 U/L Normal 0-[address] [facility] Comment on above: Performed By: #### C BCA, PINR, 19864-9, CMP, 97790-0, 24675-0 #### [facility] ([id number]) [address] [place] [address] 22862 Anion gap [Moles/Vol] 10 mmol/L Normal 5-15 [facility] Comment on above: Performed By: #### C BCA, PINR, 55931-2, CMP, 46990-9, 77734-8 #### [facility] ([id number]) [address] [place] [address] 28689 AST [Catalytic activity/Vol] 20 U/L Normal 0-[address] [facility] Comment on above: Performed By: #### C BCA, PINR, 84425-3, CMP, 40704-0, 35820-1 #### [facility] ([id number]) [address] [place] [address] 20913 Bilirubin [Mass/Vol] 0.5 mg/dL Normal 0.3-1.2 [facility] Comment on above: Performed By: #### C BCA, PINR, 45637-4, CMP, 89709-9, 09182-1 #### [facility] ([id number]) [address] [place] [address] 91335 Calcium [Mass/Vol] 8.4 mg/dL Low 8.5-10.5 [facility] Comment on above: Performed By: #### C BCA, PINR, 35832-4, CMP, 70654-6, 42299-3 #### [facility] ([id number]) [address] [place] [address] 40505 Chloride [Moles/Vol] 104 mmol/L Normal 98-109 [facility] Comment on above: Performed By: #### C BCA, PINR, 48147-3, CMP, 04529-3, 40149-3 #### [facility] ([id number]) [address] [place] [address] 11980 CO2 [Moles/Vol] 23 mmol/L Normal 22-[address] [facility] Comment on above: Performed By: #### C BCA, PINR, 80525-5, CMP, 04573-7, 75115-0 #### [facility] ([id number]) [address] [place] [address] 97046 Creatinine [Mass/Vol] 1.13 mg/dL Normal 0.70-1.20 [facility] Comment on above: Result Comment: METH OD TRACEABLE TO IDMS STANDARD Performed By: #### C BCA, PINR, 46340-2, CMP, 77973-3, 43250-6 #### [facility] ([id number]) [address] [place] [address] 89500 GFR/1.73 sq M.predicted among non-blacks MDRD (S/P/Bld) [Vol rate/Area] 63 mL/min/{1.73_m2} Normal >[address] [facility] Comment on above: Result Comment: Reported eGFR is based on the CKD-EPI 1 equation that does not use a race coefficient. Performed By: #### C BCA, PINR, 34313-7, CMP, 62885-0, 36938-7 #### [facility] ([id number]) [address] [place] [address] 55826 Glucose [Mass/Vol] 100 mg/dL High 65-99 [facility] Comment on above: Performed By: #### C BCA, PINR, 70426-3, CMP, 95938-1, 61950-6 #### [facility] ([id number]) [address] [place] [address] 23501 Potassium [Moles/Vol] 4.1 mmol/L Normal 3.5-5.0 [facility] Comment on above: Performed By: #### C BCA, PINR, 71601-0, CMP, 14693-7, 58305-0 #### [facility] ([id number]) [address] [place] [address] 36336 Protein [Mass/Vol] 6.3 g/dL Normal 6.0-8.0 [facility] Comment on above: Performed By: #### C BCA, PINR, 37464-0, CMP, 65833-5, 76925-7 #### [facility] ([id number]) [address] [place] [address] 45915 Sodium [Moles/Vol] 137 mmol/L Normal 134-146 [facility] Comment on above: Performed By: #### C BCA, PINR, 12192-6, CMP, 28483-5, 66983-1 #### [facility] ([id number]) [address] [place] [address] 99044 Urea nitrogen [Mass/Vol] 25 mg/dL Normal 5-[address] [facility] Comment on above: Performed By: #### C BCA, PINR, 08070-9, CMP, 93276-8, 88990-8 #### [facility] ([id number]) [address] [place] [address] ABDOMEN AND PELVIS WO CON Ton [...] Jernigan MD on 07/30/2024 1:05 AM Normal [facility] CT BRAIN WO CONTon CT BRAIN WO [...] Jernigan MD on 07/30/2024 12:51 AM Normal [facility] CT CERVICAL SPINE WO CONTon 07-30-2024 CT [...] Jernigan MD on 07/30/2024 12:57 AM Normal [facility] CT CHEST WO CONTon CT CHEST WO [...] Jernigan MD on 07/30/2024 1:01 AM Normal [facility] Lactate (P maximino) [Moles/Vol]o n 07-30-2024 LACTATE W/REFLEX 1.5 mmol/L Normal 0.4-2.0 [facility] Comment on above: Result Comment: Result did not trigger repeat Lactate, re-order if needed. Performed By: #### 3 2133-1 #### [facility] ([id number]) [address] [place] [address] 83985 Natriuretic peptide B [Mass/ Vol]on 07-30-2024 Natriuretic peptide B (Bld) [Mass/Vol] 20 pg/mL Normal <100.[address] [facility] Comment on above: Performed By: #### C BCA, PINR, 10688-5, CMP, 53053-5, 00920-1 #### [facility] ([id number]) [address] [place] [address] PROTIME AND INRon 07-30-2024 INR Coag (PPP) [Relative time] 1.0 {INR} Normal 0.8-1.[address] [facility] Comment on above: Performed By: #### C BCA, PINR, 99655-4, CMP, 56243-8, 63994-8 #### [facility] ([id number]) [address] [place] [address] PT Coag (PPP) [Time] 11.2 s Normal 9.8-13.2 [facility] Comment on above: Result Comment: NEW REFERENCE RANGE Performed By: #### C BCA, PINR, 34295-9, CMP, 96423-6, 71343-6 #### [facility] ([id number]) [address] [place] [address] [place] [address] Troponin I.cardiac High sens itivity method [Mass/Vol]on 07-30-2024 1 HOUR TROP I, HIGH SENSITIVITY 4 ng/L Normal <[address] [facility] Comment on above: Performed By: #### C BCA, PINR, 23124-2, CMP, 77585-1, 40273-5 #### [facility] ([id number]) [address] [place] [address] [place] [address] TROPONIN I, HIGH SENSITIVITY 4 ng/L Normal <[address] [facility] Comment on above: Performed By: #### C BCA, PINR, 10888-0, CMP, 60174-4, 84580-5 #### [facility] ([id number]) [address] [place] [address]358 aPTT Coag (PPP) [Time]on aPTT Coag (Bld) [Time] 28 s Normal 26-37 [facility] Comment on above: Result Comment: NEW REFERENCE RANGE Performed By: #### C BCA, PINR, 91369-8, CMP, 16571-6, 30537-5 #### [facility] ([id number]) [address] [place] [address] [place] [address] Steffen 06-14-2024 CNPN Telephone ([facility]) DERRICK MONAE ([id number]) 1935 M Date Time Provider Department 06/14/24 PREET OLIVA During your visit today, we recorded the following information about you: Hanny Quintanilla 06/14/2024 3:16 PM Signed Saeble from patient's PCP's office called asking if patient should be taking Namenda. Is currently not taking it. Please call [phone] Tiarra Best RN 06/15/2024 10:12 AM Signed [...] Fully Assessed Reason for Visit: Patient Question [4719] Prescriptions as of 06/15/2024 - memantine (NAMENDA) 10 mg tablet Take 1 tablet by mouth two times a day. - albuterol HFA (PROVENTIL HFA, VENTOLIN HFA) 90 mcg/actuation inhaler Inhale 2 Puffs as instructed every 4 hours as needed. - fluticasone (FLONASE) 50 mcg/actuation nasal spray Use 1 [place] in the nose once daily. - loratadine-pseudoeph [...] Encounter Status:Closed by TIARRA BEST on 06/15/24 [facility] Steffen 05-04-2024 [facility] [facility] ([facility]) DERRICK MONAE ([id number]) 1935 M Date Time Provider Department 05/04/24 [...] falling over more. Please review and advise. [phone] -IN Amalia Albarran RN 05/04/2024 3:38 PM [...] (FLONASE) 50 mcg/actuation nasal spray Use 1 [employer] in the nose once daily. - loratadine-pseudoeph [...] Encounter Status:Closed by AMALIA ALBARRAN on 05/04/24 [facility] Giulia 04-30-2024 KVNG Office Visit (ISMAEL) DERRICK MONAE ([id number]) 1935 M Date Time Provider Department 04/30/24 [...] September. He got really confused at a [employer]. He had no idea where they were. Another time at a graduation alliance party he thought they already went there. [...] as well. 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 There was concerns [...] Activities of Daily Living [place] in Activities of Daily Living (A.D.L.) Bathing: [...] POINT) Feed (more content not included)... Normal [facility] MR Brain WO contraston 02-14 * * [...] disturbance, mood disturbance, or anxiety. TECHNIQUE: Axial BUALDO FLAIR, UBALDO T2, diffusion and susceptibility weighted imaging without contrast, using the ADNI dementia protocol and 3-D post-processing using the NeuMoDx Molecular software at an independent workstation with concurrent [...] also Mando 2010). DIVISION OF RADIOLOGY Provider, [facility] [place] - 02/15/2024 * * *Final Report* * * DATE OF EXAM: Feb 15 2024 12:15PM [facility] 3015 - MRI BRAIN W QUANT [...] results from the analysis charts for details. Photographs Curator: MAURIZIO Transcribe Date/Time: Feb 15 2024 12:17P D (more content not included)... [facility] MR Unspecified body region 3 D [...] dementia protocol and 3-D post-processing using the NeuMoDx Molecular software at an independent workstation with concurrent [...] also Mando 2010). DIVISION OF RADIOLOGY Provider, [facility] [place] - 02/15/2024 * * *Final Report* * * DATE OF EXAM: Feb 15 2024 12:15PM [facility] 0280 - MRI 3D POST PROCESSING [...] dementia protocol and 3-D post-processing using the NeuMoDx Molecular software at an independent workstation with concurrent [...] Not applicable Age related white matter changes (KSW) rating: White matter lesions: 1 Basal ganglia [...] results from the analysis charts for details. Photographs Curator: MAURIZIO Transcribe Date/Time: Feb 15 2024 12:17P Dicta (more content not included)... [facility] MRI 3D POST PROCESSINGon MRI 3D POST PROCESSING * * *Final Report * * * DATE OF EXAM: Feb 15 2024 12:15PM [facility] 0280 - MRI 3D POST PROCESSING [...] dementia protocol and 3-D post-processing using the NeuMoDx Molecular software at an independent workstation with concurrent [...] results from the analysis charts for details. Photographs Curator: MAURIZIO Transcribe Date/Time: Feb 15 2024 12:17P Dictated by : NIMO LANGFORD MD This examination was interpreted and the report reviewed and electronically signed by: NIMO LANGFORD MD on Feb 15 2024 12:55PM EST [id number] (more content not included)... Normal [facility] MRI BRAIN W QUANT WO IVCONon 02-15-2024 MRI BRAIN W QUANT WO IVCON * * *Final Report* * * DATE OF EXAM: Feb 15 2024 12:15PM [facility] 3015 - MRI BRAIN W QUANT [...] dementia protocol and 3-D post-processing using the NeuMoDx Molecular software at an independent workstation with concurrent [...] results from the analysis charts for details. Photographs Curator: MAURIZIO Transcribe Date/Time: Feb 15 2024 12:17P Dictated by : NIMO LANGFORD MD This examination was interpreted and the report reviewed and electronically signed by: NIMO LANGFORD MD on Feb 15 2024 12:55PM EST [id number] (more content not included)... Normal [facility] No Panel Informationon 02-14 IMPRESSION: * No [...] results from the analysis charts for details. Photographs Curator: MAURZIIO Transcribe Date/Time: Feb 15 2024 12:17P Dictated by : NIMO LANGFORD MD This examination was interpreted and the report reviewed and electronically signed by: NIMO LANGFORD MD on Feb 15 2024 12:55PM [facility] DIVISION OF RADIOLOGY Radiology Study observation (narrative) [facility] No Panel InformationOrdered By: Ccf Provider on 02-15-2024 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 Patient is [place] he don't know why he here. His [...] September. He got really confused at a [employer]. He had no idea where they were. Another time at a graduation alliance party he thought they already went there. [...] as well. 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 There was concerns [...] Activities of Daily Living [place] in Activities of Daily Living (A.D.L.) Bathing: [...] a CT (more content not included)... Normal [facility] No Panel Informationon 01-22 Interpretation and review of laboratory results Normal [facility] THYROID STIMULATING HORMONEo n 01-23-2024 TSH Qn 1.620 m[IU]/L [facility] TSH SerPl-aCncon 01-23-2024 TSH Qn 1.620 m[IU]/L Normal 0.270-4.200 [facility] Comment on above: Order Comment: Speci men Type: BLOOD SPECIMEN Ordering Facility: [facility] Address: [address] [place] [address] Performed By: #### 3 016-3, 2132-03 #### [facility] CLIA [id number] [address] [place] [address] [place] VITAM[place] B12on 01-23-2024 Cobalamin (Vitamin B12) [Mass/Vol] 500 pg/mL 232 - 1245 pg/mL [facility] Vit B12 SerPl-mCncon 024 Cobalamin (Vitamin B12) [Mass/Vol] 500 pg/mL Normal 232-1245 [facility] Comment on above: Order Comment: Speci men Type: BLOOD SPECIMEN Ordering Facility: [facility] Address: [address] [place] [address] Performed By: #### 3 016-3, 2132-03 #### [facility] CLIA [id number] [address] [place] [address] [place] CBC AUTO DIFFon 10-01-2021 BASO # 0.1 103/ul Normal 0.0-0.1 [facility] Comment on above: Performed By: #### C BC #### [facility] [address] [place] [address] Dr. Mazin Davila Basophils/100 WBC (Bld) 1.3 % Normal 0.2-2.0 [facility] Comment on above: Performed By: #### C BC #### [facility] [address] [place] [address] Dr. Mazin Davila EO # 0.3 103/ul Normal 0.0-0.7 [facility] Comment on above: Performed By: #### C BC #### [facility] [address] [place] [address] Dr. Mazin Davila Eosinophils/100 WBC (Bld) 4.3 % Normal 0.9-7.0 [facility] Comment on above: Performed By: #### C BC #### [facility] [address] [address] [address] Mazin Davila Erythrocyte distribution width (RBC) [Ratio] 13.6 % Normal 11.0-15.0 [facility] Comment on above: Performed By: #### C BC #### [facility] [address] [place] [address] Dr. Mazin Davila Hematocrit (Bld) [Volume fraction] 45.4 % Normal 42.0-54.0 [facility] Comment on above: Performed By: #### C BC #### [facility] [address] [place] [address] Dr. Mazin Davila Hemoglobin (Bld) [Mass/Vol] 14.4 g/dL Normal 14.0-18.0 [facility] Comment on above: Performed By: #### C BC #### [facility] [address] [place] [address] Dr. Mazin Davila IG # 0.03 10e3/ul Normal 0.00-0.03 [facility] Comment on above: Performed By: #### C BC #### [facility] [address] [place] [address] Dr. Mazin Davila IG % 0.4 % Normal 0.0-0.5 [facility] Comment on above: Performed By: #### C BC #### [facility] [address] [place] [address] Dr. Mazin Davila LYMPH # 1.2 103/ul Normal 1.2-3.8 [facility] Comment on above: Performed By: #### C BC #### [facility] [address] [place] [address] Dr. Mazin Davila Lymphocytes/100 WBC (Bld) 15.1 % Critically low 20.5-60.0 [facility] Comment on above: Performed By: #### C BC #### [facility] [address] [place] [address] Dr. Mazin Davila MANUAL DIFF REQ NO Normal [facility] Comment on above: Performed By: #### C BC #### [facility] [address] [place] [address] Dr. Mazin Davila MCH (RBC) [Entitic mass] 30.4 pg Normal 25.9-34.0 [facility] Comment on above: Performed By: #### C BC #### [facility] [address] [place] [address] Dr. Mazin Davila MCHC (RBC) [Mass/Vol] 31.7 g/dL Normal 29.9-35.2 [facility] Comment on above: Performed By: #### C BC #### [facility] [address] [place] [address] Dr. Mazin Davila MCV (RBC) [Entitic vol] 96.0 fL Critically high 80.0-94 .0 [facility] Comment on above: Performed By: #### C BC #### [facility] [address] [place] [address] Dr. Mazin Davila MONO # 0.6 103/ul Normal 0.3-0.8 [facility] Comment on above: Performed By: #### C BC #### [facility] [address] [place] [address] Dr. Mzain Davila Monocytes/100 WBC (Bld) 7.6 % Normal 1.7-12.0 [facility] Comment on above: Performed By: #### C BC #### [facility] [address] [place] [address] Dr. Mazin Davila NEUT # 5.5 103/ul Normal 1.4-6.5 [facility] Comment on above: Performed By: #### C BC #### [facility] [address] [place] [address] Dr. Mazin Davila Neutrophils/100 WBC (Bld) 71.3 % Normal 43.0-75.0 [facility] Comment on above: Performed By: #### C BC #### [facility] [address] [place] [address] Dr. Mazin Davila Platelet mean volume (Bld) [Entitic vol] 10.2 fL Normal 9.5-13.5 [facility] Comment on above: Performed By: #### C BC #### [facility] [address] [place] [address] Dr. Mazin Davila PLT 314 103/ul Normal 150-450 [facility] Comment on above: Performed By: #### C BC #### [facility] [address] [place] [address] Dr. Mazni Davila RBC 4.73 106/ul Normal 4.70-6.10 [facility] Comment on above: Performed By: #### C BC #### [facility] [address] [place] [address] Dr. Mazin Davila WBC 7.7 103/ul Normal 4.0-11.0 [facility] Comment on above: Performed By: #### C BC #### [facility] [address] [place] [address] Dr. Mazin Davila PROF CHEM 8 (BAS METB)on Anion gap [Moles/Vol] 11.7 mmol/L Normal [facility] Comment on above: Performed By: #### B MP #### [facility] [address] [place] [address] Dr. Mazin Davila Calcium [Mass/Vol] 8.6 mg/dL Normal 8.5-10.1 [facility] Comment on above: Performed By: #### B MP #### [facility] [address] [place] [address] Dr. Mazin Davila Chloride [Moles/Vol] 107 mmol/L Normal 98-107 [facility] Comment on above: Performed By: #### B MP #### [facility] [address] [place] [address] Dr. Mazin Davlia CO2 [Moles/Vol] 26.8 mmol/L Normal 22.0-30.0 [facility] Comment on above: Performed By: #### B MP #### [facility] [address] [place] [address] Dr. Mazin Davila Creatinine [Mass/Vol] 1.13 mg/dL Normal 0.66-1.25 [facility] Comment on above: Performed By: #### B MP #### [facility] [address] [place] [address] Dr. Mazin Davila EGFR-AF SOUTH AFRICAN >60 Normal >=60 [facility] Comment on above: Performed By: #### B MP #### [facility] [address] [address] [address] Mazin Davila EGFR-NON AF SOUTH AFRICAN >60 Normal >=60 [facility] Comment on above: Performed By: #### B MP #### [facility] [address] [address] [address] Mazin Davila Glucose [Mass/Vol] 92 mg/dL Normal 74-106 [facility] Comment on above: Performed By: #### B MP #### [facility] [address] [address] [address] Mazin Davila Potassium [Moles/Vol] 4.5 mmol/L Normal 3.4-5.0 [facility] Comment on above: Performed By: #### B MP #### [facility] [address] [address] [address] Mazin Davila Sodium [Moles/Vol] 141 mmol/L Normal 137-145 [facility] Comment on above: Performed By: #### B MP #### [facility] [address] [address] [address] Mazin Davila Urea nitrogen [Mass/Vol] 26.0 mg/dL Critically high 7.0-18.0 [facility] Comment on above: Performed By: #### B MP #### [facility] [address] [address] [address] Mazin Davila Urea nitrogen/Creatinine [Mass ratio] 23.0 mg/mg Normal [facility] Comment on above: Performed By: #### B MP #### [facility] [address] [address] [address] Mazin Davila Vital Signs Date Time Vital Sign Value Performing Clinician Krystle morel 02-26-2025 08:09-0400 Diastolic blood pressure 91 mm[Hg] Ashley Elizondo AEROPHYSICIST-C Work Phone: [facility] 02-26-2025 08:09-0400 Heart rate 73 /min Ashley Elizondo AEROPHYSICIST-C Work Phone: [facility] 02-26-2025 08:09-0400 Respiratory rate 14 /min Ashley Elizondo AEROPHYSICIST-C Work Phone: [facility] 02-26-2025 08:09-0400 SaO2% (BldA) [Mass fraction] 95 % Ashley Elizondo AEROPHYSICIST-C Work Phone: [facility] 02-26-2025 08:09-0400 Systolic blood pressure 170 mm[Hg] Ashley Elizondo AEROPHYSICIST-C Work Phone: [facility] 02-26-2025 06:00-0400 Body weight 64.3 kg Ashley Elizondo AEROPHYSICIST-C Work Phone: [facility] 02-26-2025 03:45-0400 Body temperature 97.7 [degF] Ashley Elizondo AEROPHYSICIST-C Work Phone: [facility] 02-24-2025 12:15-0400 Body height 167.64 cm Ashley Elizondo AEROPHYSICIST-C Work Phone: [facility] 12-16-2024 13:27-0400 Body height 167.6 cm Dion Frazier MD Work Phone: [facility] 12-16-2024 13:27-0400 Body mass index (BMI) [Ratio] 24.21 kg/m2 Dion Frazier MD Work Phone: [facility] 12-16-2024 13:27-0400 Body temperature 97.11 [degF] Dion Frazier MD Work Phone: [facility] 12-16-2024 13:27-0400 Body weight 68.04 kg Dion Frazier MD Work Phone: [facility] 12-16-2024 13:27-0400 Diastolic blood pressure 64 mm[Hg] Dion Frazier MD Work Phone: [facility] 12-16-2024 13:27-0400 Heart rate 87 /min Dion Frazier MD Work Phone: [facility] 12-16-2024 13:27-0400 Respiratory rate 20 /min Dion Frazier MD Work Phone: [facility] 12-16-2024 13:27-0400 SaO2% (BldA) [Mass fraction] 98 % Dion Frazier MD Work Phone: [facility] 12-16-2024 13:27-0400 Systolic blood pressure 130 mm[Hg] Dion Frazier MD Work Phone: [facility] 10-07-2024 12:51-0400 Body mass index (BMI) [Ratio] 24.78 kg/m2 Mobile Loughrin PA-C Work Phone: [facility] 10-07-2024 12:51-0400 Body weight 69.63 kg Margarita Loughrin PA-C Work Phone: [facility] 10-07-2024 12:51-0400 Diastolic blood pressure 91 mm[Hg] Margarita Loughrin PA-C Work Phone: [facility] 10-07-2024 12:51-0400 Heart rate 115 /min Mobile Loughrin PA-C Work Phone: [facility] 10-07-2024 12:51-0400 Systolic blood pressure 129 mm[Hg] Mobile Loughrin PA-C Work Phone: [facility] 09-14-2024 15:01-0500 Body height 167.6 cm Dion Frazier MD Work Phone: [facility] 09-14-2024 15:01-0500 Body mass index (BMI) [Ratio] 24.86 kg/m2 Dion Frazier MD Work Phone: [facility] 09-14-2024 15:01-0500 Body temperature 97.5 [degF] Dion Frazier MD Work Phone: [facility] 09-14-2024 15:01-0500 Body weight 69.85 kg Dion Frazier MD Work Phone: [facility] 09-14-2024 15:01-0500 Diastolic blood pressure 70 mm[Hg] Dion Frazier MD Work Phone: [facility] 09-14-2024 15:01-0500 Heart rate 69 /min Dion Frazier MD Work Phone: [facility] 09-14-2024 15:01-0500 Respiratory rate 22 /min Dion Frazier MD Work Phone: [facility] 09-14-2024 15:01-0500 SaO2% (BldA) [Mass fraction] 97 % Dion Frazier MD Work Phone: [facility] 09-14-2024 15:01-0500 Systolic blood pressure 130 mm[Hg] Dion Frazier MD Work Phone: [facility] 08-05-2024 15:02-0500 Body height 167.6 cm Ashlye Elizondo AEROPHYSICIST Work Phone: [facility] 08-05-2024 15:02-0500 Body mass index (BMI) [Ratio] 25.18 kg/m2 Ashley Elizondo AEROPHYSICIST Work Phone: [facility] 08-05-2024 15:02-0500 Body temperature 97.59 [degF] Ashley Elizondo AEROPHYSICIST Work Phone: [facility] 08-05-2024 15:02-0500 Body weight 70.76 kg Ashley Elizondo AEROPHYSICIST Work Phone: [facility] 08-05-2024 15:02-0500 Diastolic blood pressure 76 mm[Hg] Ashley Elizondo AEROPHYSICIST Work Phone: [facility] 08-05-2024 15:02-0500 Heart rate 104 /min Ashley Elizondo AEROPHYSICIST Work Phone: [facility] 08-05-2024 15:02-0500 Respiratory rate 18 /min Ashley Elizondo AEROPHYSICIST Work Phone: [facility] 08-05-2024 15:02-0500 SaO2% (BldA) [Mass fraction] 94 % Ashley Elizondo AEROPHYSICIST Work Phone: [facility] 08-05-2024 15:02-0500 Systolic blood pressure 138 mm[Hg] Ashley Elizondo AEROPHYSICIST Work Phone: [facility] 07-19-2024 13:02-0500 Body height 167.6 cm Ashley Elizondo AEROPHYSICIST Work Phone: [facility] 07-19-2024 13:02-0500 Body mass index (BMI) [Ratio] 24.69 kg/m2 Ashley Elizondo AEROPHYSICIST Work Phone: [facility] 07-19-2024 13:02-0500 Body temperature 98.2 [degF] Ashley Elizondo AEROPHYSICIST Work Phone: [facility] 07-19-2024 13:02-0500 Body weight 69.4 kg Ashley Elizondo AEROPHYSICIST Work Phone: [facility] 07-19-2024 13:02-0500 Diastolic blood pressure 76 mm[Hg] Ashley Elizondo AEROPHYSICIST Work Phone: [facility] 07-19-2024 13:02-0500 Respiratory rate 18 /min Ashley Elizondo AEROPHYSICIST Work Phone: [facility] 07-19-2024 13:02-0500 Systolic blood pressure 128 mm[Hg] Ashley Elizondo AEROPHYSICIST Work Phone: [facility] 05-27-2024 11:28-0500 Body height 167.6 cm Ashley Elizondo AEROPHYSICIST Work Phone: [facility] 05-27-2024 11:28-0500 Body mass index (BMI) [Ratio] 25.11 kg/m2 Ashley Elizondo AEROPHYSICIST Work Phone: [facility] 05-27-2024 11:28-0500 Body temperature 97.7 [degF] Ashley Daviespatrick AEROPHYSICIST Work Phone: [facility] 05-27-2024 11:28-0500 Body weight 70.58 kg Ashley Elizondo AEROPHYSICIST Work Phone: [facility] 05-27-2024 11:28-0500 Diastolic blood pressure 78 mm[Hg] Ashley Elizondo AEROPHYSICIST Work Phone: [facility] 05-27-2024 11:28-0500 Heart rate 77 /min Ashley Elizondo AEROPHYSICIST Work Phone: [facility] 05-27-2024 11:28-0500 SaO2% (BldA) [Mass fraction] 90 % Ashley Elizondo AEROPHYSICIST Work Phone: [facility] 05-27-2024 11:28-0500 Systolic blood pressure 138 mm[Hg] Ashley Elizondo AEROPHYSICIST Work Phone: [facility] 04-30-2024 11:25-0400 Body height 167.6 cm Preet Doher DO Work Phone: [facility] 04-30-2024 11:25-0400 Body mass index (BMI) [Ratio] 25.82 kg/m2 Preet Doher DO Work Phone: [facility] 04-30-2024 11:25-0400 Body weight 72.58 kg Preet Doher DO Work Phone: [facility] 04-30-2024 11:25-0400 Diastolic blood pressure 73 mm[Hg] Preet Doher DO Work Phone: [facility] 04-30-2024 11:25-0400 Heart rate 66 /min Preet Doher DO Work Phone: [facility] 04-30-2024 11:25-0400 Systolic blood pressure 155 mm[Hg] Preet Do DO Work Phone: [facility] 01-23-2024 10:06-0400 Body mass index (BMI) [Ratio] 25.84 kg/m2 Preet Do DO Work Phone: [facility] 01-23-2024 10:06-0400 Body weight 72.62 kg Preet Do DO Work Phone: [facility] 01-23-2024 10:06-0400 Diastolic blood pressure 70 mm[Hg] Preet Do DO Work Phone: [facility] 01-23-2024 10:06-0400 Heart rate 55 /min Preet Do DO Work Phone: [facility] 01-23-2024 10:06-0400 Systolic blood pressure 158 mm[Hg] Preet Do DO Work Phone: [facility] Encounters Encounter Date Encounter Type Care Provider Facility Start: 02-24-2025 Non-patient / Non-visit Asher valverde DO -[facility] Work Phone: Start: 02-24-2025 End: 02-26-2025 ambulatory Temo Maite Facility:[facility] Start: 02-12-2025 End: 02-12-2025 ambulatory [facility] Start: 02-09-2025 End: 02-11-2025 ambulatory [facility] Start: 02-09-2025 Encounter for other preprocedural examination GRISELDA Lockhart [facility] Start: 01-05-2025 End: 01-05-2025 Telephone encounter Margarita Arevalo PA-C Work Phone: Neurology Comment on above: Appointment (Left vo icemail regarding scheduling follow up with Margarita in 3 months (Mar 2025), and new consult with Virginia Camacho, the [facility] clinical social worker, scheduling number included for call back.) Start: [...] [facility] Start: 12-16-2024 End: 12-16-2024 [employer] Dion Frazier MD Work Phone: [facility] Start: 12-16-2024 End: 12-16-2024 Office outpatient visit 25 minutes Dion Frazier MD Work Phone: [facility] Comment on above: Primary hypertension (CMS/HCC) (Primary Dx); Moderate persistent asthma without complication (CMS/HCC); Alzheimer's dementia with mood disturbance, unspecified dementia severity, unspecified timing of dementia onset (CMS/HCC); Coronary artery disease involving naknek coronary artery of naknek heart without angina pectoris (CMS/HCC) Start: 12-16-2024 End: 12-16-2024 ambulatory DION FRAZIER Not Available Start: 10-07-2024 End: 10-07-2024 ambulatory MARGARITA AREVALO Facility:[facility] Start: 10-07-2024 End: 10-07-2024 Patient encounter procedure [...] dementia severity, unspecified timing of dementia onset ([facility]/HCC); Coronary artery disease involving naknek coronary artery of naknek heart without angina pectoris ([facility]/HCC) Start: 09-14-2024 End: 09-14-2024 ambulatory DION FRAZIER Not Available Start: 09-14-2024 End: 09-14-2024 Bamboo flowsheet Dion Frazier MD Work Phone: [facility] Start: 09-14-2024 End: 09-14-2024 Bamboo flowsheet Dion Frazier MD Work Phone: [facility] Start: 08-05-2024 End: 08-05-2024 Emergency department patient visit [facility] Start: 08-05-2024 End: 08-05-2024 Office outpatient visit 10 minutes Ashley Elizondo AEROPHYSICIST Work Phone: [facility] Comment on above: Upper respiratory in fection with cough and congestion (Primary Dx) Start: 08-05-2024 End: 08-05-2024 ambulatory ASHLEY ELIZONDO Not Available Start: 07-29-2024 End: 07-30-2024 Emergency department patient visit [facility] Start: 07-19-2024 End: 07-19-2024 Bamboo flowsheet Ashley Elizondo AEROPHYSICIST Work Phone: [facility] Start: 07-19-2024 End: 07-19-2024 Bamboo flowsheet Ashley Elizondo AEROPHYSICIST Work Phone: [facility] Start: 07-19-2024 End: 07-19-2024 Patient encounter procedure Ashley Elizondo AEROPHYSICIST Work Phone: [facility] Comment on above: Medicare annual well ness visit, subsequent (Primary Dx) Start: 07-19-2024 End: 07-19-2024 ambulatory ASHLEY ELIZONDO Not Available Start: 07-15-2024 ambulatory ASHLEY ELIZONDO [facility] Start: 06-22-2024 End: 06-28-2024 Telephone encounter Hyun Elaine PT [facility] Comment on above: re: Missed PT Eval; fu (4x's w/ unable to contact.) Start: 06-21-2024 ambulatory SHAIKH RIGOBERTO [facility] Start: 06-16-2024 End: 06-21-2024 Telephone encounter Hyun Elaine PT [facility] Comment on above: PT for Alzheimer dem entia / freq falls Start: 06-15-2024 End: 06-15-2024 Orders Only Ashley Elizondo AEROPHYSICIST Work Phone: [facility] Comment on above: Frequent falls (Prim efren Dx); Alzheimer's dementia with mood disturbance, unspecified dementia severity, unspecified timing of dementia onset ([facility]) Start: 06-14-2024 End: 06-15-2024 Telephone encounter Preet Oliva DO Work Phone: Neurology Comment on above: Patient Question Start: 05-27-2024 End: 05-27-2024 Bamboo flowsheet Ashley Ariask AEROPHYSICIST Work Phone: [facility] Start: 05-27-2024 End: 05-27-2024 Bamboo flowsheet Ashley Gloriatrick AEROPHYSICIST Work Phone: [facility] Start: 05-27-2024 End: 05-27-2024 Office outpatient visit 15 minutes Ashley Ariask AEROPHYSICIST Work Phone: [facility] Comment on above: Frequent falls (Prim efren Dx) Start: 05-27-2024 End: 05-27-2024 ambulatory ASHLEY GLORIATRICK Not Available Start: 05-04-2024 End: 05-04-2024 Telephone encounter Margarita Arevalo PA-C Work Phone: Neurology Start: 04-30-2024 End: 04-30-2024 ambulatory PREET OLIVA Facility:[facility] Start: 04-30-2024 End: 04-30-2024 Office outpatient visit 40 minutes Preet Oliva DO Work Phone: Neurology Comment on above: 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, psychotic disturbance, mood disturbance, or anxiety (HCC) (Primary Dx) Start: 02-15-2024 End: 02-15-2024 ambulatory PREET OLIVA Facility:[facility] Start: 02-15-2024 End: 02-15-2024 Subsequent hospital visit by physician Mri 6 Radio Main Q (I-Stat/1.5t/3t) Work Phone: MRI Q Comment on above: 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, psychotic disturbance, mood disturbance, or anxiety (HCC) [G30.1, F02.A0] Start: 01-23-2024 End: 01-23-2024 ambulatory PREET OLIVA Facility:[facility] Start: 01-23-2024 End: 01-23-2024 Office outpatient new 60 minutes Preet Oliva DO Work Phone: Neurology Comment on above: 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, psychotic disturbance, mood disturbance, or anxiety (HCC) (Primary Dx) Start: 12-30-2023 End: 12-30-2023 ambulatory SHAIKH RIGOBERTO Not Available Start: 06-30-2023 Patient encounter procedure Ashley Elizondo NP Work Phone: [facility] Start: 10-01-2021 End: 10-02-2021 ambulatory SHAIKH RIGOBERTO Facility: Procedures Date Procedure Procedure Detail Performing Clinician Start: 02-09-2025 Antibody screen SHAIKH RIGOBERTO Comment on above: Performed By: #### C BCA, PINR, 17163-8, CMP, 70564-9, 25047-3 #### [facility] ([id number]) [address] [place] [address], [place] [address] Start: 02-15-2024 3d rendering w/interp&postproc diff work station Preet Oliva DO Work Phone: Start: 02-15-2024 Mri brain brain stem w/o contrast material Preet Oliva Work Phone: Plan of Treatment Date Care Activity Detail Author Start: 08-05-2027 Diabetes Screening Diabetes Screenin g [facility] Start: 07-19-2025 Medicare Annual Well ness (AWV) Medicare Annual Wellness (AWV) [facility] Start: 06-20-2025 End: 06-20-2025 Patient encounter procedure 06/20/2025 1:30 PM EST Office Visit [facility] [address] [place] [address] Dion Frazier MD [address] [place] [id number] [facility] Start: 02-26-2025 [facility] Start: 02-24-2025 Administration of prophylactic treatment [facility] Start: 02-24-2025 Consultation [facility] Start: 02-24-2025 Hospital admission [facility] Start: 01-04-2025 End: 01-04-2025 Follow-up encounter 01/04/2025 3:45 PM EDT [facility] Neurology [address] [place], [place] [id number] Margarita Arvealo PA-C [address] [place] [address] 3 month follow up Neurology Comment on above: 3 month follow up Start: 12-16-2024 End: 12-16-2024 Patient encounter procedure [facility] Comment on above: Arrived Start: 11-16-2024 End: 11-16-2024 Patient encounter procedure [facility] Start: 11-10-2024 End: 11-10-2024 Patient encounter procedure 11/10/2024 11:30 AM EDT Office Visit Neurology [address] [address] Margarita Arevalo PA-C [address] [place] [address] Mild late onset Alzheimer's dementia without behavioral disturbance, psychotic d... 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 Start: 09-14-2024 End: 09-14-2024 Patient encounter procedure 09/14/2024 2:45 PM EST Office Visit [facility] [address] [place] [phone] Dion Frazier MD [address] [place] [phone] Arrived [facility] Comment on above: Arrived Start: 07-19-2024 End: 07-19-2024 Patient encounter procedure 07/19/2024 1:00 PM EST Office Visit [facility] [address] [place] [phone] Ashley Elizondo NP [address] [place] [phone] Arrived [facility] Comment on above: Arrived Start: 07-14-2024 Advance Directive Discussion Advance Directive Discussion [facility] Start: 07-14-2024 Medicare Advantage A nnual Wellness Visit Medicare Advantage Annual Wellness Visit [facility] Start: 06-30-2024 Medicare Annual Well ness (AWV) Medicare Annual Wellness (AWV) [facility] Start: 06-30-2024 End: 06-30-2024 Patient encounter procedure 06/30/2024 1:00 PM EST Office Visit [facility] [address] [place] [phone] Ashley Elizondo NP [address] [place] [phone] [facility] Start: 06-22-2024 End: 06-22-2024 ambulatory 06/22/2024 2:30 PM EST Evaluation [facility] [address] [place] [phone] Hyun Elaine, PT [facility] Start: 04-30-2024 End: 04-30-2024 Patient encounter procedure 04/30/2024 11:30 AM EDT Office Visit Neurology [address] [place] [address] Preet Oliva DO [address] [place] [address] 3 month post-MRI FU Neurology Comment on above: 3 month post-MRI FU Start: 03-14-2024 Covid-19 Vaccine () Covid-19 Vaccine () [facility] Start: 03-14-2024 Influenza vaccination Influenza Vacc ine (#1) [facility] Start: 02-15-2024 End: 02-15-2024 Patient encounter procedure 02/15/2024 11:40 AM EDT Appointment MRI Q [address] [place] [address] MRI brain w quant wo ivcon MRI Q Comment on above: MRI brain w quant wo ivcon Start: 01-23-2024 End: 04-23-2024 VITAMIN B1 (THIAMINE), WHOLE BLOOD VITAMIN B1 (THIAMINE), WHOLE BLOOD Lab Routine Mild late onset Alzheimer's dementia without behavioral disturbance, psychotic disturbance, mood disturbance, or anxiety (HCC) Expected: 01/23/2024, Expires: 04/23/2024 [facility] Comment on above: Expected: 01/23/2024 , Expires: 04/23/2024 Start: 07-14-2023 Advance Directive Discussion Advance Directive Discussion [facility] Start: 07-14-2023 Behavioral Health Screening Behavioral Health Screening [facility] Start: 03-14-2023 Covid-19 Vaccine () Covid-19 Vaccine () [facility] Start: 04-16-2014 Diabetes Screening Diabetes Screenin g [facility] Start: 2012 RSV Vaccine (1 - 1-d ose 75+ series) RSV Vaccine (1 - 1-dose 75+ series) [facility] Start: 1997 RSV Vaccine (1 - 1-d ose 60+ series) RSV Vaccine (1 - 1-dose 60+ series) [facility] Start: 1987 Shingrix Vaccine (1 of 2) Mcmullen grix Vaccine (1 of 2) [facility] Start: 1956 Urine microalbumin profile DTaP,Tdap,Td Vaccine (1 - Tdap) [facility] Start: 1955 Anxiety Screening Anxiety Screening [facility] Start: 1955 Depression Screening Depression Scre ening [facility] Start: [address] [facility] End: 02-21-2025 MR Brain WO contrast MRI BRAIN W QUANT WO IVCON Radiology Routine Mild late onset Alzheimer's dementia without behavioral disturbance, psychotic disturbance, mood disturbance, or anxiety (HCC) 1 Occurrences starting 01/23/2024 until 02/21/2025 [facility] Work Phone: Comment on above: 1 Occurrences starti ng 01/23/2024 until 02/21/2025 End: 02-21-2025 MR Unspecified body region 3D post processing MRI 3D POST PROCESSING Radiology Routine Mild late onset Alzheimer's dementia without behavioral disturbance, psychotic disturbance, mood disturbance, or anxiety (HCC) 1 Occurrences starting 01/23/2024 until 02/21/2025 [facility] Comment on above: 1 Occurrences starti ng 01/23/2024 until 02/21/2025 Patient referral [facility] Work Phone: Immunizations Immunization Date Immunization Notes Care Provider Jenifer jean baptiste 03-22-2022 Seasonal, quadrivale nt, recombinant, injectable influenza vaccine, preservative free Ashley Elizondo AEROPHYSICIST Work Phone: [facility] 03-22-2022 influenza virus vacc ine, unspecified formulation Preet Oliva DO Work Phone: [facility] 07-30-2021 Influenza, injectabl e, Madin [place] Canine Kidney, preservative free, quadrivalent Ashley Elizondo AEROPHYSICIST Work Phone: [facility] 05-09-2020 Seasonal, quadrivale nt, recombinant, injectable influenza vaccine, preservative free Ashley Elizondo AEROPHYSICIST Work Phone: [facility] 04-24-2017 pneumococcal conjuga te vaccine, 13 valent Ashley Ariask AEROPHYSICIST Work Phone: [facility] 07-14-2007 pneumococcal polysaccharide vaccine, 23 valent Ashley Gloriatrick AEROPHYSICIST Work Phone: [facility] Payers Date Payer Category Payer Self-pay 2023 Medicare [id number] 2023 Medicare (Managed Care) 1.2. [id number] 2023 Unknown [facility] [employer] MEDICARE ADVANTAGE O [id number] 2023-[facility] [phone] [address] [place] [address] O [id number] 2023 Medicare [id number] 1959 Medicare [id number] 1937 Unknown [id number] [id number] 93 1937 Unknown [id number] 2..840.1.466066.3.579.2.1 259 1937 Unknown [id number] 2..840.1.472740.3.579.2.1 259 1937 Unknown [id number] 2.16.840.1.051873.3.579.2.1 259 1937 Unknown [id number] 2.16.840.1.239303.3.579.2.1 259 1937 Unknown [id number] 2.16.840.1.359767.3.579.2.1 259 1937 Unknown [id number] 2.16.840.1.095223.3.579.2.1 259 1937 Unknown [id number] 2.16.840.1.954600.3.579.2.1 286 1937 Unknown [id number] 2.16.840.1.171681.3.579.2.1 286 1937 Unknown [id number] 2.16.840.1.430945.3.579.2.1 286 1937 Unknown [id number] 2.16.840.1.471204.3.579.2.1 286 1937 Unknown [id number] 2.16.840.1.300911.3.579.2.1 286 1937 Unknown [id number] 2.16.840.1.178367.3.579.2.1 286 Unknown [id number] Unknown [employer] [id number] Unknown [id number] [id number] 31 Social History Date Type Detail Facility Start: 01-23-2024 End: 02-24-2025 Tobacco smoking status NDIS Ex-smoker [facility] History of tobacco use Current smoker [facility] Start: 01-23-2024 End: 10-07-2024 Alcohol intake Current drinker of alcohol (finding) [facility] Start: 01-23-2024 End: 10-07-2024 History of Social function [facility] Start: 01-23-2024 End: 10-07-2024 Tobacco use panel [facility] National Score (1-100), lower number is lower risk 67 [facility] Start: 01-23-2024 Tobacco Comment He msoked 1-2 PPd x 25-30 years, quit 20-[address] [facility] Start: 1935 Sex Assigned At Not on file C [facility] Start: 12-30-2023 Tobacco smoking status NDIS Never smoked tobacco [facility] Start: 12-30-2023 [...] [SILS] Often [facility] Sex Male (finding) [facility] Start: 1935 Sex Assigned At Male F [facility] Start: 02-25-2025 SDOH Follow up SDOH Follow up [facility] Work Phone: NEGATED: Highlighted rowStart: NINF History of tobacco use Passive smoker [facility] Clinical Notes 01-23-2024 to 02-24-2025 Note Date & Type Note Facility 02-24-2025 Evaluation note Diagnosis Onset Date Resolution Fall acute February 24, 2 025 12:19am Hip fracture, left acute February 24, 2025 12:19am [facility] Work Phone: 1(143) 987-919206-25-2025 Telephone encounter Note* Telephone Encounter - Jackson Alegre - 01/05/2025 2:50 PM EDT Left voicemail regarding scheduling follow up with Margarita in 3 months (Mar 2025), and new consult with Virginia Camacho, the [facility] clinical social worker, scheduling number included for call back. [facility]06-25-2025 Miscellaneous Notes* Telephone Encounter - Jackson Alegre - 01/05/2025 2:50 PM EDT Left voicemail regarding scheduling follow up with Margarita in 3 months (Mar 2025), and new consult with Virginia Camacho, the [facility] clinical social worker, scheduling number included for call back. documented in this encounterSt. [facility]06-[facility]-2025 NoteHNO ID: [id number] Author: MARGARITA AREVALO PA-C Service: ? Author Type: Physician Tanning Solution Maker Type: Progress Notes Filed: 01/04/2025 16:10 Note Text: Derrick Monae 1935 [address] [facility] [address] January 04, 2025 Time: 3:43 PM [facility] VIRTUAL VISIT I have communicated my name and active licensure. The patient's identity and physical location were verified at the time of this visit. Either the patient or their legal insurance verification representative has been informed of the risks [...] (FLONASE) 50 mcg/actuation nasal spray Use 1 Eighty Eight in the nose once daily. loratadine-pseudoephedrine ER [...] review as above in addition to medical counseling.[facility]06-24-2025 History of Present illness Narrative* Margarita Arevalo PA-C - 01/04/2025 3:42 PM EDT Derrick Monae 1935 [address] [facility] [address] January 04, 2025 Time: 3:43 PM Only for Brain Health VIRTUAL VISIT I have communicated my name and active licensure. The patient's identity and physical location wereverified at the time of this visit. Either the patient or their legal insurance verification representative has been informed of the risks [...] (FLONASE) 50 mcg/actuation nasal spray Use 1 Eighty Eight in the nose once daily. loratadine-pseudoephedrine ER [...] addition to medical counseling. documented in this encounterSt. [facility]06-[facility] History of Present illness Narrative* Dion Frazier MD - 12/16/2024 1:55 PM EDTAssociated Problem(s): Primary hypertension (CMS/HCC) BP controlled and monitor PRN. * Dion Frazier MD - 12/16/2024 1:55 PM EDTAssociated Problem(s): Moderate persistent asthma Breathing stable and follow with pulmonology. * Dion Frazier MD - 12/16/2024 1:55 PM EDTAssociated Problem(s): CAD (coronary artery disease) ([facility]) No symptoms and monitor. * Dion Frazier MD - 12/16/2024 1:55 PM EDTAssociated Problem(s): Alzheimer's dementia ([facility]) Symptoms stable and continue [...] Addressed This Visit CAD (coronary artery disease) ([facility]/HCC) No symptoms and monitor. Moderate persistent asthma Breathing stable and follow with pulmonology. Primary hypertension ([facility]/HCC) - Primary BP controlled and monitor PRN. Alzheimer's dementia ([facility]) Symptoms stable and continue medication. Follow with neurology. documented in this encounterSaint Joseph Hospital [id number] Instructions* Patient Instructions* Margarita Arevalo PA-C - [...] in about 3 months documented in this encounterSt. [facility]03-27-2025 History of Present illness Narrative* Margarita Arevalo PA-C - 10/07/2024 1:00 PM EDT Images from the original note were not included. Derrick Owen Lorna 1935 [address] [place] [address] October 07, 2024 Time: 11:58 AM Only for Brain Health FOLLOW-UP NOTE Accompanied by: spouse and daughter (she is visiting, lives in [place]) SUBJECTIVE Derrick Monae is a pleasant 89 [...] worse, daughter agrees. She is visiting from [place], here for about one month. Spouse states [...] (FLONASE) 50 mcg/actuation nasal spray Use 1 Eighty Eight in the nose once daily. loratadine-pseudoephedrine ER [...] which included preparing to see the patient, [id number] patient care, completing clinical documentation, counseling and educating the patient/family/caregiver, and ordering medications, tests, or procedures. JOSEF Mandujano PA-C [facility] Health documented in this encounterSt. [facility]03-27-2025 NoteHNO ID: [id number] Author: MARGARITA AREVALO PA-C Service: ? Author Type: Physician Tanning Solution Maker Type: Progress Notes Filed: 10/07/2024 14:21 Note Text: Derrick Monae 1935 [address] [facility] [address] October 07, 2024 Time: 11:58 AM [facility] FOLLOW-UP NOTE Accompanied by: spouse and daughter (she is visiting, lives in [place]) SUBJECTIVE Derrick Monae is a pleasant 89 [...] worse, daughter agrees. She is visiting from [place], here for about one month. Spouse states [...] (FLONASE) 50 mcg/actuation nasal spray Use 1 Eighty Eight in the nose once daily. loratadine-pseudoephedrine ER [...] frustration -message me i (more content not included)...[facility]03-04-2025 History of Present illness Narrative* Dion Frazier [...] 09/14/2024 3:35 PM ESTAssociated Problem(s): Alzheimer's dementia ([facility]) Worsening behavior problems and add seroquel. [...] Addressed This Visit CAD (coronary artery disease) ([facility]) No symptoms and monitor. Moderate persistent asthma ([facility]) Breathing stable and follow with pulmonology. Primary hypertension ([facility]/HCC) - Primary BP controlled and monitor PRN. Alzheimer's dementia ([facility]) Worsening behavior problems and add seroquel. Continue medication and follow with neurology. Relevant Medications QUEtiapine (SEROquel) 25 MG tablet documented in this encounterSaint Joseph Hospital [id number] History of Present illness Narrative* Ashley Elizondo [...] further eval and treatment. documented in this encounterNOMS [id number] History of Present illness Narrative* Ashley Mikhail, AEROPHYSICIST - 07/19/2024 1:00 PM EST Images from [...] Do you have a medical power of business attorney?: Yes Who is your medical power of business attorney?: pedro lorna Objective : BP 128/76 Temp 98.2 F [...] on July 19, 2024 documented in this encounterSaint Joseph Hospital [id number] Telephone encounter Note* Telephone Encounter - Sarah Galloway - 06/25/2024 1:52 PM EST 4th attempt unable to contact anyone [facility] [id number] Miscellaneous Notes* Telephone Encounter - Sarah Galloway [...] of missed PT Eval. documented in this encounterSaint Joseph Hospital WestMpblacsbqi15-43-2035 Telephone encounter Note* Telephone Encounter - Sarah Galloway - 06/23/2024 3:49 PM EST Attempted but only rang; will try again. [facility] WestUstibocczo58-99-6348 Telephone encounter Note* Telephone Encounter - Sarah Galloway - 06/22/2024 2:42 PM EST Tried # listed 2x's but would not go thru to notify of missed PT Eval. [facility] WestBzmnzmrskf46-47-3125 Telephone encounter Note* Telephone Encounter - Sarah Galloway - 06/21/2024 11:13 AM EST Contacted and scheduled PT Eval 06/22 w/ Carlyle Elaine, PT. [facility] WestDyuynmmbim54-39-5202 Miscellaneous Notes* Telephone Encounter - Sarah Galloway [...] / prior auth needed. documented in this encounterNOCT [id number] Telephone encounter Note* Telephone Encounter - Sarah Galloway - 06/18/2024 10:26 AM EST Same as before. [facility] WestJugjoecloq83-86-8125 Telephone encounter Note* Telephone Encounter - Sarah Galloway - 06/16/2024 12:57 PM EST Tried to contact to schedule PT eval; but no answer / no machine. $35.00 copay / prior auth needed. [facility] WestSeshijssjg32-07-8315 Telephone encounter Note* Telephone Encounter - Tiarra Best RN - 06/15/2024 10:11 AM EST Spoke with patient PCP office to discuss memantine titration schedule. Advised to titrate slowly and to reach out if patient experiences side effects to further advise. PCP office to call patient spouse to review. Tiarra Best RN [facility]12-03-2024 Miscellaneous Notes* Telephone Encounter - Tiarra [...] Is currently not taking it. Please call [phone] documented in this encounterSt. [facility] Of [facility] Hospital12-02-2024 Telephone encounter Note * Telephone Encounter - Hanny Quintanilla - 06/14/2024 3:14 PM EST Saeble from patient's PCP's office called asking if patient should be taking Namenda. Is currently not taking it. Please call [phone] [facility]11-19-2024 History of Present illness Narrative* Ashley Elizondo NP - 06/01/2024 9:47 AM ESTAssociated Problem(s): Frequent falls Was seen at [facility] on 05/04 for frequent falls. Was negative for UTI. Has MRI of brain done in 02/2024 Neurology started Donepezil, had initially ordered Namenda as well but decided to hold off due to falls. * Ashley Elizondo NP - 06/01/2024 9:46 AM ESTAssociated Problem(s): Alzheimer's dementia ([facility]) Follows closely with Neurology [...] y.o. male who presents for Hospital Follow-up. [facility] Neurology Dr. Oliva @ [facility] Diagnosed with mild late onset Alzheimer's dementia; Was seen at [facility] on 05/04 for frequent falls. Was [...] is unsafe to drive. Will defer to [facility]. I personally reached out to Dr. Oliva's office at [facility] and left an extensive message regarding pt [...] Frequent falls - Primary Was seen at [facility] on 05/04 for frequent falls. Was negative for UTI. Has MRI of brain done in 02/2024 Neurology started Donepezil, had initially ordered Namenda as well but decided to hold off due to falls. documented in this encounterSaint Joseph Hospital [id number] Telephone encounter Note* Telephone Encounter - Amalia Albarran RN - 05/04/2024 4:08 PM EDT RN called spouse back and informed her that Dr. Oliva said to hold off on Namenda for now so as notto further complicate things. She was asked to provide update after visit to urgent care. She said that he is currently sleeping, but will take him. Amalia Albarran RN [facility]10-22-2024 Miscellaneous Notes* Telephone Encounter - Amalia [...] falling over more. Please review and advise. [phone] -IN documented in this encounterSt. John Of [facility] Hospital10-22-2024 Telephone encounter Note * Telephone Encounter [...] and recent frequent falls. Amalia Albarran, RN [facility]10-22-2024 Telephone encounter Note* Telephone Encounter - Ac Zambrano - 05/04/2024 2:54 PM EDT 05/04/24 Patient's spouse Pedro reached the office to request clarification before starting patient on the following medication memantine (NAMENDA) 10 mg tablet Si mg, ORAL, 2 TIMES DAILY. She reports he has physically started to decline and has been falling over more. Please review and advise. [phone] -[phone] [facility]10-18-2024 Instructions* Patient Instructions* Preet Oliva DO [...] more information. Follow up 6 months with Mobile If you need to reschedule this please call [phone]. If you need to reach our office for any reason prior to your next visit, please contact us through [facility] or call [phone]. Ways to keep your brain healthy: Follow [...] fish and fish high in mercury (swordfish, Taiwanese sea flood, orange roughy, ahi tuna, albacore [...] resources are: The Alzheimer's Association (web site: alz.org/fort apache) available 24 hours a day, 7 days per week. Contact: Local: ; Toll free: [phone] Family Caregiver [place] (web site: Caregiver.org) [employer] [place]-- a secure online solution for quality information, support, and resources for family caregivers. Contact: Toll-free number: [phone] Alzheimers.gov - Find Alzheimer disease and related dementias information, resources, research and more. documented in this encounterSt. [facility] Of God [facility]24 NoteHNO ID: [id number] Author: PREET OLIVA DO Service: ? Author [...] September. He got really confused at a [employer] tournament. He had no idea where they were. Another time at a graduation alliance party he thought they already went there. [...] as well. 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 There was concerns [...] Sometimes he uses his card at the [employer] and it says insufficient funds . 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 Education level: few semesters at [employer] Alcohol: He says he drinks 2 beers per day and is concerned he drinks much more than this. Goes through about 24 beers per week. Tobacco: Former smoker many year (more content not included)...[facility]10-18-2024 History of Present illness Narrative* Karime castroDO levi - 04/30/2024 11:57 AM EDT Images from [...] inMarch. He got really confused at a [employer] tournament. He had no idea where they were. Another time at a graduation alliance party he thought they already went there. [...] as well. 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 Education level: few semesters at [employer] Alcohol: He says he drinks 2 beers [...] (FLONASE) 50 mcg/actuation nasal spray Use 1 Eighty Eight in the nose once daily. loratadine-pseudoephedrine ER [...] (?) dementia Heart Father age 70 of [place], first [place] age 65 Lipids Brother Alive age 52 [...] are intact. Neurological Exam Brief Neuropsychiatric Evaluation: [place] Cognitive Assessment (MoCA) Total Score: / Visuospatial/Executive: [...] which included preparing to see the patient, ftui-dh-[id number] patient care, performing a medically appropriate examination, completing clinical documentation, and on counseling/ eductaing the patient and the family. Preet Oliva DO documented in this encounterSt. John Of [facility]10-18-2024 Nurse Note* Edilberto Goodwin MA - [...] 72.6 kg (160 lb) BMI 25.82 kg/m [facility]10-18-2024 Nurse Note* Edilberto Goodwin MA - [...] lb) BMI 25.82 kg/m documented in this encounterSt. John Of [facility] Hospital08-04-2024 History of Present illness Narrative* Hank [...] PATIENT PRESENTS WITH AN IMPLANTABLE OR ATTACHED SOFTWARE TEST TECHNICIAN: No RADIOLOGY DEPARTMENT: MR; Exam(s) Completed: Head: dementia brain wo PERIPHERAL IV DATA: Not applicable SIGNED BY: RT Ana(Delfino) February 15, 2024 11:55 AM documented in this encounterSt. John Of God Hospital08-04-2024 NoteHNO ID: [id number] Author: HANK SANTANA RT(R) Service: Radiology Author [...] PATIENT PRESENTS WITH AN IMPLANTABLE OR ATTACHED SOFTWARE TEST TECHNICIAN: No RADIOLOGY DEPARTMENT: MR; Exam(s) Completed: Head: dementia brain wo PERIPHERAL IV DATA: Not applicable SIGNED BY: RT Ana(Delfino) February 15, 2024 11:55 [facility]07-12-2024 Instructions* Patient Instructions* Preet Oliva DO - 01/23/2024 11:39 AM EDT Our team had the pleasure of seeing you today at [facility]. We reviewed your evaluation [...] patients have this done either in at [facility] or [facility] at the [facility]. To schedule at either location call: . Medications: Start donepezil 5 mg daily (1/2 tab) for one month then increase to 10 mg daily after that. We would like you to return to [facility] for a follow up visit roughly 3 months or after MRI brain scan. Sincerely, documented in this encounterSt. [facility] Of [facility] Hospital07-12-2024 NoteHNO ID: [id number] Author: PREET OLIVA DO Service: ? Author Type: Physician Type: Progress Notes Filed: 01/23/2024 13:22 Note Text: Reason for Referral: Cognitive changes and Memory loss I had the pleasure of seeing this 88 year old year old male at the [facility]. The patient is referred by [...] September. [facility]. He had no idea where they were. Another time at a graduation alliance party he thought they already went there. [...] as well. 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 Education level: few semesters at [employer] Alcohol: He says he drinks 2 beers [...] SOB Current Outpatient Med (more content not included)...[facility] 01-23-2024 History of Present illness Narrative* Preet Oliva DO - 01/23/2024 10:19 AM EDT Images from [...] inMarch. He got really confused at a [employer]. He had no idea where they were. Another time at a graduation alliance party he thought they already went there. [...] as well. 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 Education level: few semesters at [employer] Alcohol: He says he drinks 2 beers [...] (FLONASE) 50 mcg/actuation nasal spray Use 1 Eighty Eight in the nose once daily. loratadine-pseudoephedrine ER [...] (?) dementia Heart Father age 70 of [place], first [place] age 65 Lipids Brother Alive age 52 [...] which included preparing to see the patient, lvlu-eq-rkdr patient care, performing a medically appropriate examination, completing clinical documentation, and on counseling/ eductaing the patient and the family. Preet Oliva DO documented in this encounterSt. John Of God Hospital07-12-2024 Nurse Note* Ewa Monae OCCA - 01/23/2024 10:08 AM EDT Derrick Monae is a 88 year old year old right handed man Accompanied by: spouse and son. 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 Patient is KWIGILLINGOK he don't know why he here. His made the appointment she stated he is forgetful. Vital Signs: BP 158/70 Pulse (!) 55 Wt 72.6 kg (160 lb 1.6 oz) BMI 25.84 kg/m [facility]07-12-2024 Nurse Note* Ewa Monae OCCA - 01/23/2024 10:08 AM EDT Derrick Monae is a 88 year old year old right handed man Accompanied by: spouse and son. 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 Patient is [place]WIGILL[place] he don't know why he here. His made the appointment she stated he is forgetful. Vital Signs: BP 158/70 Pulse (!) 55 Wt 72.6 kg (160 lb 1.6 oz) BMI 25.84 kg/m documented in this encounterSt. [facility]* Diagnosis Mild late onset Alzheimer's dementia without behavioral disturbance, psychotic disturbance, mood disturbance, or anxiety (HCC)- Primary [facility] this [facility]* Diagnosis Mild late onset Alzheimer's dementia without behavioral disturbance, psychotic disturbance, mood disturbance, or anxiety (HCC) [facility] Diagnosis Mild late onset Alzheimer's dementia without behavioral disturbance, psychotic disturbance, mood disturbance, or anxiety (HCC)- Primary [facility]* Diagnosis Moderate persistent asthma without complication (CMS/HCC)- Primary Gastroesophageal reflux disease without esophagitis Esophageal reflux Seasonal allergies Allergic rhinitis, cause unspecified Encounter for Medicare annual wellness exam Primary hypertension (CMS/HCC) Unspecified essential hypertension Coronary artery disease involving naknek coronary artery of naknek heart without angina pectoris (CMS/HCC)- Primary Moderate persistent asthma without complication (CMS/HCC) Primary hypertension (CMS/HCC) Unspecified essential hypertension Frequent falls- Primary [facility] Diagnosis Moderate persistent asthma without complication (CMS/HCC)- Primary Gastroesophageal reflux disease without esophagitis Esophageal reflux Seasonal allergies Allergic rhinitis, cause unspecified Encounter for Medicare annual wellness exam Primary hypertension (CMS/HCC) Unspecified essential hypertension Coronary artery disease involving naknek coronary artery of naknek heart without angina pectoris (CMS/HCC)- Primary Moderate persistent asthma without complication (CMS/HCC) Primary hypertension (CMS/HCC) Unspecified essential hypertension Frequent falls- Primary Frequent falls- Primary Alzheimer's dementia with mood disturbance, unspecified dementia severity, unspecified timing of dementia onset (CMS/HCC) [facility] Diagnosis Moderate persistent asthma without complication (CMS/HCC)- Primary Gastroesophageal reflux disease without esophagitis Esophageal reflux Seasonal allergies Allergic rhinitis, cause unspecified Encounter for Medicare annual wellness exam Primary hypertension (CMS/HCC) Unspecified essential hypertension Coronary artery disease involving naknek coronary artery of naknek heart without angina pectoris (CMS/HCC)- Primary Moderate [...] Unspecified essential hypertension Coronary artery disease involving naknek coronary artery of naknek heart without angina pectoris (CMS/HCC)- Primary Moderate [...] Unspecified essential hypertension Coronary artery disease involving naknek coronary artery of naknek heart without angina pectoris (CMS/HCC)- Primary Moderate persistent asthma without complication (CMS/HCC) Primary hypertension (CMS/HCC) Unspecified essential hypertension Frequent falls- Primary Primary hypertension (CMS/HCC)- Primary Unspecified essential hypertension Moderate persistent asthma without complication (CMS/HCC) Alzheimer's dementia with mood disturbance, unspecified dementia severity, unspecified timing of dementia onset ([facility]/HCC) Coronary artery disease involving naknek coronary artery of naknek heart without angina pectoris (CMS/HCC) [facility]* Diagnosis Alzheimer's disease (HCC)- Primary Alzheimer's disease [facility] Diagnosis Moderate persistent asthma without complication (CMS/HCC)- Primary Gastroesophageal reflux disease without esophagitis Esophageal reflux Seasonal allergies Allergic rhinitis, cause unspecified Encounter for Medicare annual wellness exam Primary hypertension (CMS/HCC) Unspecified essential hypertension Coronary artery disease involving naknek coronary artery of naknek heart without angina pectoris (CMS/HCC)- Primary Moderate persistent asthma without complication (CMS/HCC) Primary hypertension (CMS/HCC) Unspecified essential hypertension Frequent falls- Primary Primary hypertension (CMS/HCC)- Primary Unspecified essential hypertension Moderate persistent asthma without complication (CMS/HCC) Alzheimer's dementia with mood disturbance, unspecified dementia severity, unspecified timing of dementia onset (CMS/HCC) Coronary artery disease involving naknek coronary artery of naknek heart without angina pectoris (CMS/HCC) Primary hypertension (CMS/HCC)- Primary Unspecified essential hypertension Moderate persistent asthma without complication (CMS/HCC) Alzheimer's dementia with mood disturbance, unspecified dementia severity, unspecified timing of dementia onset (CMS/HCC) Coronary artery disease involving naknek coronary artery of naknek heart without angina pectoris (CMS/HCC) [facility]* Diagnosis Alzheimer's disease (HCC)- Primary Alzheimer's disease Probable Alzheimer's disease - LATE ONSET (> 65 years) [331.0AS] Alzheimer's disease documented in this encounter [facility] Discharge instructions Additional Instructions SNF to manage: -PT/OT to eval and treat -Monitor VS per protocol -High fall risk precautions -Perform orthopedic assessments -Turn and reposition every 2 hours -Dietitian recommendations: *Ensure plus, 1 container, BID with meals -Change dressing every 3 days: *Mepilex border foam to Coccyx for added protection. -Care to be managed by SNF providers.[facility] Work Phone: Summary Purpose Family History [...] disturbance, psychotic disturbance, mood disturbance, or anxiety ([facility]) Procedures MRI 3D POST PROCESSING 3D RENDERING W/INTERP&POSTPROC DIFF WORK STATION Preet Oliva DO [address] [address] [place] [id number] Referral ID Status Reason Start Date Expiration Date Visits Requested Visits Authorized [id number] Pending Review Auto-Generat ed Referral 01/23/2024 02/21/2025 1 1 Specialty Diagnoses / Procedures Referred By Contcodie t Referred To Contact MR IMAGING Diagnoses Mild late onset Alzheimer's dementia without behavioral disturbance, psychotic disturbance, mood disturbance, or anxiety (HCC) Procedures MRI BRAIN W QUANT WO IVCON MRI BRAIN BRAIN STEM W/O CONTRAST MATERIAL Preet Oliva DO [address] [address] [place] [id number] Referral ID Status Reason Start Date Expiration Date Visits Requested Visits Authorized [id number] Authorized Auto-Generat ed Referral 01/23/2024 02/21/2025 1 1 Referral ID Status Reason Start Date Expiration Date V isits Requested Visits Authorized [id number] Closed Auto-Generate d Referral 01/30/2024 07/13/2024 1 1 Referral ID Status Reason Start Date Expiration Date V isits Requested Visits Authorized [id number] Closed Auto-Generate d Referral 01/23/2024 02/21/2025 1 [...] and content) DATE CREATED AUTHOR 10/02/2021 [facility] DATE CREATED AUTHOR AUTHOR'S ORGANIZ ATION 12/17/2024 [facility] EPIC DATE CREATED AUTHOR AUTHOR'S ORGANIZ ATION 01/06/2025 [facility] DATE CREATED AUTHOR AUTHOR'S ORGANIZ ATION 02/12/2025 [facility] DATE CREATED AUTHOR AUTHOR'S ORGANIZ ATION 02/14/2025 [facility] DATE CREATED AUTHOR AUTHOR'S ORGANIZ ATION 03/22/2025 [facility] Source Comments (unrecognize d section and content) In the event this informatio n is protected by the Federal Confidentiality of Alcohol and Drug Abuse Patient Records regulations: The Federal rules restrict any use of the information to criminally investigate or prosecute any alcohol or drug abuse patient.[facility] the event this information is protected by the Federal Confidentiality of Alcohol and Drug Abuse Patient Records regulations: The Federal rules restrict any use of the information to criminally investigate or prosecute any alcohol or drug abuse patient.[facility] the event this information is protected by the Federal Confidentiality of Alcohol and Drug Abuse Patient Records regulations: The Federal rules restrict any use of the information to criminally investigate or prosecute any alcohol or drug abuse patient.[facility] Hospital[facility] the event this information is protected by the Federal Confidentiality of Alcohol and Drug Abuse Patient Records regulations: The Federal rules restrict any use of the information to criminally investigate or prosecute any alcohol or drug abuse patient.[facility] the event this information is protected by the Federal Confidentiality of Alcohol and Drug Abuse Patient Records regulations: The Federal rules restrict any use of the information to criminally investigate or prosecute any alcohol or drug abuse patient.[facility] the event this information is protected by the Federal Confidentiality of Alcohol and Drug Abuse Patient Records regulations: The Federal rules restrict any use of the information to criminally investigate or prosecute any alcohol or drug abuse patient.[facility] the event this information is protected by the Federal Confidentiality of Alcohol and Drug Abuse Patient Records regulations: The Federal rules restrict any use of the information to criminally investigate or prosecute any alcohol or drug abuse patient.[facility] Hospital[facility] the event this information is protected by the Federal Confidentiality of Alcohol and Drug Abuse Patient Records regulations: The Federal rules restrict any use of the information to criminally investigate or prosecute any alcohol or drug abuse patient.[facility] Reason for Visit (unrecogniz ed section and content) Reason Comments New Patient Reason Comments Radiology MRI Specialty Diagnoses / Procedures Referred By Contac t Referred To Contact MR IMAGING Diagnoses Mild late onset Alzheimer's dementia without behavioral disturbance, psychotic disturbance, mood disturbance, or anxiety (HCC) Procedures MRI 3D POST PROCESSING 3D RENDERING W/INTERP&POSTPROC DIFF WORK STATION Preet Oliva DO [address] [address] [place] [address] Referral ID Status Reason Start Date Expiration Date V isits Requested Visits Authorized [id number] Closed Auto-Generate d Referral 01/30/2024 07/13/2024 1 [...] and new consult with Virginia Camacho, the [facility] clinical social worker, scheduling number included for call back. Care Teams (unrecognized sec tion and content) Printer Slotter Helper Relationship Specialty Start Date End Date Shaikh Franklin MD [address] [place] [address] PCP - Johan VASQUEZ 07/14/23 Dion Frazier MD [address] [place] [address] PCP - General Family Medicine 04/07/24 Ashley Elizondo NP [address] [place] [address] Nurse Practitioner Family Medicine 04/07/24 Printer Slotter Helper Relationship Specialty Start Date End Date Shaikh Franklin MD [address] [place] [address] PCP - Johan VASQUEZ 07/14/23 Dion Frazier MD [address] [place] [address] PCP - General Family Medicine 04/07/24 Ashley Elizondo NP [address] [place] [address] Nurse Practitioner Family Medicine 04/07/24 Printer Slotter Helper Relationship Specialty Start Date End Date Shaikh Franklin MD [address] [place] [address] PCP - Johan VASQUEZ 07/14/23 Dion Frazier MD [address] [place] [address] PCP - General Family Medicine 04/07/24 Ashley Elizondo NP [address] [place] [address] Nurse Practitioner Family Medicine 04/07/24 Javid Marie MA Family Medicine 06/04/24 Printer Slotter Helper Relationship Specialty Start Date End Date Shaikh Franklin MD [address] [place] [address] PCP - Johan CO 07/14/23 Dion Frazier MD [address] [place] [address] PCP - General Family Medicine 04/07/24 Ashley Elizondo, SHANELL [address] [place] [address] Nurse Practitioner Family Medicine 04/07/24 Javid Marie MA Family Medicine 06/04/24 Printer Slotter Helper Relationship Specialty Start Date End Date Shaikh Franklin MD [address] [place] [address] PCP - Johan [place] 07/14/23 Dion Frazier MD [address] [place] [address] PCP - General Family Medicine 04/07/24 Ashley Elizondo, AEROPHYSICIST [address] [place] [address] Nurse Practitioner Family Medicine 04/07/24 Javid Marie MA Family Medicine 06/04/24 Printer Slotter Helper Relationship Specialty Start Date End Date Shaikh Franklin MD [address] [place] [address] PCP Lenard Prado [place] 07/14/23 Dion Frazier MD [address] [place] [address] PCP - General Family Medicine 04/07/24 Ashley Elizondo NP [address] [place] [address] Nurse Practitioner Family Medicine 04/07/24 Javid Marie MA Family Medicine 06/04/24 Printer Slotter Helper Relationship Specialty Start Date End Date Shaikh Franklin MD [address] [place] [address] PCP - Johan VASQUEZ 07/14/23 Dion Frazier MD [address] [place] [address] PCP - General Family Medicine 04/07/24 Ashley Elizondo NP [address] [place] [address] Nurse Practitioner Family Medicine 04/07/24 Javid Marie MA Family Medicine 06/04/24 Printer Slotter Helper Relationship Specialty Start Date End Date Shaikh Franklin MD [address] [place] [address] PCP - Johan VASQUEZ 07/14/23 Dion Frazier MD [address] [place] [address] PCP - General Family Medicine 04/07/24 Ashley Elizondo NP [address] [place] [address] Nurse Practitioner Family Medicine 04/07/24 Javid Marie MA [facility] 06/04/24 Printer Slotter Helper Relationship Specialty Start Date End Date Shaikh Franklin MD [address] [place] [address] PCP - Johan [place] 07/14/23 Dion Frazier MD [address] [place] [address] PCP - General Family Medicine 04/07/24 Javid Marie MA [facility] 06/04/24 Printer Slotter Helper Relationship Specialty Start Date End Date Shaikh Franklin MD [address] [place] [address] PCP - Johan [place] 07/14/23 Dion Frazier MD [address] [place] [address] PCP - General Family Medicine 04/07/24 Javid Marie MA Family Medicine 06/04/24 Printer Slotter Helper Relationship Specialty Start Date End Date Shaikh Franklin MD [address] [place] [address] PCP - Johan [place] 07/14/23 Dion Frazier MD [address] [place] [address] PCP - General Family Medicine 04/07/24 Javid Marie MA Family Medicine 06/04/24 Team Status: Active Member Role Status Dates Ashley Elizondo AEROPHYSICIST-C Primary Care Provider Ac tive Team Status: Active Member Role Status Dates Ashley Elizondo , AEROPHYSICIST-C Primary Care Provider Ac tive Start: February 24, 2025 Royal Mai MD Admit Provider Active S tart: February 24, 2025 Naldo Quinn MD Other Provider Active Start: Feb us2024 Jerardo Rosa MD Other Provider Active Start: A ugust 2024 Maricruz Oseguera MD Other Provider Active Star t: February 24, 2025 Asher Lan DO Attending Provider Active S tart: February 24, 2025 Asher Lan DO Other Provider Active Start : February 24, [...] BE BASED ON THE PRIMARY CLINICAL RECORDS. [employer] provides no warranty or guarantee of the accuracy or completeness of information in this document.
[2025-03-23 19:06] LABS: Anion Gap 13.2; Blood Urea Nitrogen 16.0 mg/dL (7.0-18.0); Calcium 8.8 mg/dL (8.5-10.1); Carbon Dioxide 27.3 mmol/L (21.0-32.0); Chloride 104 mmol/L (98-107); Estimated GFR (African America >60 (>=60 mL/min/1.73m^2); Estimated GFR (Non-African Ame >60 (>=60 mL/min/1.73m^2); Glucose 106 mg/dL (74-106); Potassium 3.5 mmol/L (3.5-5.1); Salicylate <2.8 mg/dL (<=19.9); Sodium 141 mmol/L (136-145)
[2025-03-23 19:14] LABS: Acetaminophen <2.0 ug/mL (10.0-30.0)
[2025-03-23 19:53] LABS: Glucose Urine UA NEGATIVE (NEGATIVE)
[2025-03-23 20:07] LABS: Cast Seen? NONE SEEN #/LPF (NONE SEEN); Crystals Seen? None Seen #/HPF (None Seen); Urine Culture Indicated NO
[2025-03-23 20:09] LABS: Cannabinoid Screen Urine NEGATIVE (NEGATIVE); Methamphetamines Screen Urine NEGATIVE (NEGATIVE); Tricyclic Antidepressant Urine NEGATIVE (NEGATIVE)
[2025-03-23] MEDS: HALOPERIDOL LACTATE 5 MG/ML VIAL IM (22:55)
[2025-03-24 01:40] LABS: SARS-CoV-2 Ag POSITIVE (NEGATIVE)
[2025-03-24 02:47] VITALS: BP 174/91; PULSE 68; O2SAT 98
[2025-03-24 04:46] VITALS: BP 149/85; PULSE 86; O2SAT 98
[2025-03-24 06:13] VITALS: BP 150/74
[2025-03-24 06:14] VITALS: BP 150/74; PULSE 74; O2SAT 98
[2025-03-24] MEDS: SERTRALINE HCL 50 MG TABLET 75 MG PO (11:55)
[2025-03-24 12:58] VITALS: BP 148/84; PULSE 84; O2SAT 97
== END 2025-03-24 12:59 | disposition home or self-care (01) ==
PROVIDERS: Emergency Medicine; Emergency Provider Emergency Medicine
DX: F91.8 Other conduct disorders (principal); F03.90 Unspecified dementia, unspecified severity, without behavioral disturbance, psychotic disturbance, mood disturbance, and anxiety; Z79.899 Other long term (current) drug therapy; U07.1 COVID-19; R45.1 Restlessness and agitation; Z91.148 Patient's other noncompliance with medication regimen for other reason
CPT/HCPCS: 36415; 70450; 71045; 80048; 80179; 80307; 80320; 80329; 81001; 85025; 87811; 93005; 96372; 99285; J1630